=== PATIENT | male | born 1960 | race Caucasian/White ===

== ENCOUNTER → 2024-04-06 13:26 | Outpatient (REF) | payer BC, SELFPAY | LOC: HWRAD 13:26 | PROVIDERS: ATTENDING PHYSICIAN Internal Medicine | DX: B34.9 Viral infection, unspecified (principal) | CPT/HCPCS: 71046 ==

== ENCOUNTER 2024-06-22 06:58 | Day surgery (SDC) | payer BC, SELFPAY ==
[2024-06-22 07:31] VITALS: BMI 44.2
[2024-06-22 07:32] VITALS: BP 109/78; BMI 44.2
[2024-06-22 09:09] VITALS: BP 110/50
[2024-06-22 09:24] VITALS: BP 116/55
[2024-06-22 09:36] VITALS: BP 116/52
== END 2024-06-22 09:46 | disposition home or self-care (01) ==
LOC: GI 06:58
PROVIDERS: ATTENDING PHYSICIAN Internal Medicine Gastroenterology
DX: K62.5 Hemorrhage of anus and rectum (principal); C20 Malignant neoplasm of rectum; R19.7 Diarrhea, unspecified; K56.690 Other partial intestinal obstruction; D49.0 Neoplasm of unspecified behavior of digestive system; K57.30 Diverticulosis of large intestine without perforation or abscess without bleeding; D12.4 Benign neoplasm of descending colon
CPT/HCPCS: 45385; 45380; 45381; 88305; 88342

== ENCOUNTER → 2024-07-06 12:07 | Outpatient (REF) | payer BC, SELFPAY | LOC: RAD 12:07 | PROVIDERS: ATTENDING PHYSICIAN Internal Medicine Gastroenterology; FAMILY PHYSICIAN Internal Medicine; REFERRING PHYSICIAN Surgery | DX: K63.89 Other specified diseases of intestine (principal) | CPT/HCPCS: 71260; 74177; Q9967 ==

== ENCOUNTER → 2024-07-18 12:25 | Outpatient (REF) | payer BC, SELFPAY | LOC: MRI 3T 12:25 | PROVIDERS: ATTENDING PHYSICIAN Surgery; FAMILY PHYSICIAN Internal Medicine | DX: C20 Malignant neoplasm of rectum (principal) | CPT/HCPCS: 72197 ==

== ENCOUNTER → 2024-07-26 08:02 | Outpatient (REF) | payer BC, SELFPAY | LOC: RAD 08:02 | PROVIDERS: ATTENDING PHYSICIAN Internal Medicine Critical Care Medicine; FAMILY PHYSICIAN Internal Medicine | DX: R06.02 Shortness of breath (principal) | CPT/HCPCS: 93970 ==

== ENCOUNTER → 2024-07-30 09:00 | Outpatient (REF) | payer BC, SELFPAY ==
[2024-07-30 11:01] LABS: INR 1.37; PT 17.1 Sec (11.4-14.6)
[2024-07-30 11:02] LABS: APTT 40.7 Sec (23.4-35.0)
== END ==
LOC: REG 09:00
PROVIDERS: ATTENDING PHYSICIAN Internal Medicine Critical Care Medicine; FAMILY PHYSICIAN Internal Medicine
DX: R91.1 Solitary pulmonary nodule (principal)
CPT/HCPCS: 36415; 85610; 85730

== ENCOUNTER 2024-07-30 20:26 | Inpatient (IN) | payer BC, SELFPAY ==
[2024-07-30] VITALS (11 sets, daily range): BP systolic 83–107; BP diastolic 41–62; PULSE 118–128; BMI 41.2; BMI 40.1
[2024-07-30] MEDS: NSS 1000 IV ×2 (16:24→21:52)
[2024-07-30 16:35] LABS: % Basophils 0.3 % (0-2); % Eosinophils 0.1 % (0-6); % Immature Granulocytes 0.5 % (0-0.5); % Lymphocytes 16.9 % (20.5-51.1); % Monocytes 5.3 % (1.7-9.3); % Neutrophils 76.9 % (42.2-75.2); Absolute Immature Granulocytes 0.1 10^3/uL (0-0.05); Absolute Lymphocytes 1.7 10^3/uL (1.2-3.4); Absolute Monocytes 0.5 10^3/uL (0.1-0.6); Absolute Neutrophils 7.8 10^3/uL (1.4-6.5); Hematocrit 28.6 % (39.0-52.0); Mean Corp Hgb Conc. 31.5 g/dL (33.0-37.0); Mean Corpuscular Hgb 26.5 pg (27.0-31.0); Mean Corpuscular Volume 84.4 fL (80.0-94.0); Mean Platelet Volume 9.5 fL (7.4-10.4); Nucleated Red Blood Cells % 0 % (-); Platelet Count 159 10^3/uL (130-400); Red Blood Cell Count 3.39 10^6/uL (4.70-6.10); Red Cell Dist. Width 15.3 % (11.5-14.5); White Blood Cell Count 10.1 10^3/uL (4.8-10.8)
[2024-07-30 16:51] LABS: ALT (SGPT) 115 U/L (0-50); AST (SGOT) 98 U/L (17-59); Albumin 2.7 g/dl (3.5-5.0); Alkaline Phosphatase 238 U/L (38-126); Blood Urea Nitrogen 60 mg/dl (9-20); Calcium 7.7 mg/dl (8.4-10.2); Carbon Dioxide 20 mmol/L (22-30); Chloride 103 mmol/L (98-107); Estimated Creatinine Clearance 75 ml/min; Glucose 123 mg/dl (70-99); Potassium 4.2 mmol/L (3.5-5.1); Sodium 132 mmol/L (135-145); Total Bilirubin 0.8 mg/dl (0.2-1.3); Total Protein 5.7 g/dl (6.3-8.2); eGFR 56.83
--- NOTE | 2024-07-30 18:14 | ED.GENMED ---
History of Present Illness
General
Chief Complaint: Dizziness
Source: patient
Exam Limitations: none
Time Seen by Provider: 07/30/24 16:06
History of Present Illness
History of Present Illness:
64-year-old male with recent diagnosis of colorectal cancer due for a biopsy of a lesion in his lung as well presents with complaints of fatigue and lightheadedness. He started metoprolol in addition to his olmesartan that he was taking. He states
since then he has not felt well. He also started Eliquis due to suspicion for possible atrial fibrillation. His first dose of 5 mg of Eliquis was last evening he only had 1 dose. He denies any black stools. He denies abdominal pain chest pain or
shortness of breath. The metoprolol dose was 25 mg once a day.
Phy Exam
Physical Exam
Physical Exam:
General: Well-appearing male no acute respiratory distress
HEENT: Normocephalic atraumatic
Heart: Tachycardic
Lungs: Clear no wheeze
Abdomen is soft nontender nondistended
Extremities: No cyanosis or edema
Rectal exam: No obvious hemorrhoids. Yellow-colored stool but this is heme positive
Course
Orders/Labs/Results
Orders:
Orders
07/30/24 16:07
EKG [Electrocardiogram (*1)] Urgent
Reason for Study: Tachycardia
EKG- Treatment ONCE
07/30/24 16:18
0.9% Sodium Chloride 1000 ml [Nss] 1,000 ml IV BOLUS
07/30/24 16:22
Complete Blood Count/With Diff Urgent
Comprehensive Metabolic Panel Urgent
Abnormal Lab Results
07/30/24
16:22
RBC 3.39 L 10^6/uL
(4.70-6.10)
Hgb 9.0 L g/dL
(13.0-18.0)
Hct 28.6 L %
(39.0-52.0)
MCH 26.5 L pg
(27.0-31.0)
MCHC 31.5 L g/dL
(33.0-37.0)
RDW 15.3 H %
(11.5-14.5)
Abs Immat Gran (auto) 0.1 H 10^3/uL
(0-0.05)
Absolute Neuts (auto) 7.8 H 10^3/uL
(1.4-6.5)
Neutrophils % 76.9 H %
(42.2-75.2)
Lymphocytes % 16.9 L %
(20.5-51.1)
Sodium 132 L mmol/L
(135-145)
Carbon Dioxide 20 L mmol/L
(22-30)
BUN 60 H mg/dl
(9-20)
Creatinine 1.4 H mg/dL
(0.7-1.3)
Glucose 123 H mg/dl
(70-99)
Calcium 7.7 L mg/dl
(8.4-10.2)
AST 98 H U/L
(17-59)
ALT 115 H U/L
(0-50)
Alkaline Phosphatase 238 H U/L
(38-126)
Total Protein 5.7 L g/dl
(6.3-8.2)
Albumin 2.7 L g/dl
(3.5-5.0)
07/30/24 16:22
07/30/24 16:22
Vital Signs
Initial and Last Documented VS:
Initial Vital Signs
Pulse Resp BP Pulse Ox
108 16 83/41 100
07/30/24 15:56 07/30/24 15:56 07/30/24 15:56 07/30/24 15:56
Last Documented Vital Signs
Temp Pulse Resp BP Pulse Ox
97.6 F 94 22 97/51 93
07/30/24 17:36 07/30/24 19:15 07/30/24 19:15 07/30/24 19:00 07/30/24 19:15
MDM/Problems Addressed
Differential Diagnosis Includes:
Patient with fatigue. Differential could include anemia versus medication reaction. Patient is hypotensive here with pressures 80s over 40s. Fluids ordered.
Hemoglobin is 9.0. I have no priors to compare. Patient is trying to find other lab results on his phone.
*Critical Care Note
Total Time (30-74mins, 75-104mins- exclusive of procedures): Not Applicable
Update Note
Update Note:
Most recent lab result on patient's phone was 12.7 hemoglobin from May. It dropped almost 4 g since then. I suspect patient's symptoms are related to his anemia. Last dose of metoprolol was about 24 hours ago. Consent obtained for blood
transfusion. Will admit to hospital
ED Attending Note
-
Portions of this chart may have been created with voice recognition software.� Occasional wrong word or��sound alike� substitutions may have occurred due to the inherent limitations of voice recognition software.
Discharge Plan
Departure
Patient Disposition: Admit
Date of Disposition: 07/30/24
Time of Disposition: 19:32
Presentation/result/management discussed w/ accepting MD/DO: Hospitalist
Discharge Problem:
Anemia
Prescriptions:
No Action
esomeprazole magnesium [Nexium] 40 mg Capsule,Delayed Release(Dr/Ec)
40 mg PO DAILY
olmesartan-hydrochlorothiazide 40-12.5 mg Tablet
1 tab PO DAILY
rosuvastatin 10 mg Tablet
10 mg PO DAILY
Enbrel 50 mg/mL (1 mL) Syringe
50 mg SC QWEEK
Referrals:
Dk العلي MD [Family Provider] -
Interventions
Interventions:
*Risk Screen - Suicide Last Done: 07/30/24 15:56
*General Assessment Last Done: 07/30/24 15:56
*Neglect/Abuse Screening Last Done: 07/30/24 16:14
ED- Fall Risk Assessment Last Done: 07/30/24 16:25
*ED COVID-19 Vaccine History Last Done: 07/30/24 15:56
ED- Neurological Assessment Last Done: 07/30/24 16:21
ED- Cardiac Assessment Last Done: 07/30/24 16:24
Discharge Date and Time
Print Language: LITHUANIAN
--- NOTE | 2024-07-30 19:54 | HPS.HSE ---
Family Physician
-
Family Physician: Dk العلي
Chief Complaint
-
Dizziness
History of Present Illness
Patient is a 64-year-old male past medical history of recently diagnosed colorectal cancer, persistent atrial fibrillation, and hypertension who presents with dizziness. Patient reports feeling unwell for the last 1 to 2 days. He was recently
started on metoprolol and Eliquis for atrial fibrillation. He denies chest pain, palpitations, or shortness of breath.
Medical History
Past Medical History
Past Medical History: Reports Other
Additional Past Medical History:
Colorectal Adenocarcinoma
Persistent Atrial Fibrillation
Essential Hypertension
Hyperlipidemia
Restrictive Lung Disease
Obstructive Sleep Apnea
Psoriasis
Past Surgical History: Reports Other
Additional Past Surgical History:
Right Knee and Ankle Surgeries
Social History
Tobacco: Non-smoker
Alcohol: None
Family History
Family History: Not pertinent
Allergies / Home Medications
Allergies reflects when Allergies were last updated in [facility].
Home Medications with original date entered in [facility]
Allergy/Medication List:
Allergies
Allergy/AdvReac Type Severity Reaction Status Date / Time
No Known Allergies Allergy Verified 07/30/24 16:02
Home Medications
olmesartan 40 mg-hydrochlorothiazide 12.5 mg tablet 1 tab PO HS 06/22/24
rosuvastatin 10 mg tablet 10 mg PO HS 06/22/24
apixaban 5 mg tablet (Eliquis) 5 mg PO BID 07/30/24
lorazepam 1 mg tablet 1 mg PO HSPRN PRN sleep 07/30/24
metoprolol succinate 25 mg tablet,extended release 24 hr 25 mg PO HS 07/30/24
Review of Systems
-
A 12 point ROS was completed and negative except as noted: Yes
Constitutional: Denies Fever or Chills
Respiratory: Denies Cough or Trouble Breathing
Cardiac: Denies Chest Pain or Palpitations
Physical Exam
Vital Signs
Vital Signs
Temp Pulse Resp BP Pulse Ox
97.6 F 94 22 97/51 93
07/30/24 17:36 07/30/24 19:15 07/30/24 19:15 07/30/24 19:00 07/30/24 19:15
Physical Exam
General: Comfortable and Conversant
HEENT: Moist mucous membranes and Atraumatic
Respiratory: Clear and Non Labored Respirations
Cardiac: S1/S2 and Irregular Rhythm; No Tachycardia
GI: Soft and Non Tender
Rectal: Deferred by Provider
Musculoskeletal: No Clubbing, No Cyanosis and Other (+1 pitting edema bilateral lower extremities)
Skin: Warm and Dry
Neuro: Awake, Alert, Oriented and Nonfocal/grossly intact
Psych: Calm
Laboratory Results
-
07/30/24 16:22
07/30/24 16:22
Laboratory Results
Total Bilirubin 0.8 mg/dl (0.2-1.3) 07/30/24 16:22
AST 98 U/L (17-59) H 07/30/24 16:22
ALT 115 U/L (0-50) H 07/30/24 16:22
Alkaline Phosphatase 238 U/L (38-126) H 07/30/24 16:22
Data Reviewed
-
Lab Data: Labs Reviewed by me
Impression/Plan
-
Acute Kidney Injury
-Hold olmesartan and HCTZ
-Continue IVFs
-Recheck labs in AM
Worsening Normocytic Anemia
-No evidence of active bleeding
-Check iron studies
Elevated LFTs
-Outpatient notes indicate prior history of Elevated LFTs
-Continue to trend
Colorectal Adenocarcinoma with possible lung mets
-Recently started chemotherapy and radiation
-Schedule for lung biopsy as outpatient
Persistent Atrial Fibrillation
-Continue Eliquis for anticoagulation
-Continue Metoprolol for rate control if blood pressure improves
Essential Hypertension
-BP running low - Hold all oral meds
Hyperlipidemia
-Continue rosuvastatin
DVT proph: Eliquis
Code Status: Full Code
[2024-07-30 20:40] LABS: Iron 32 ug/dl (49-181)
[2024-07-30 20:50] LABS: Percent Saturation 11 % (20-50); Total Iron Binding Capacity 270 ug/dl (261-462)
--- NOTE | 2024-07-30 21:08 | W.PN.UPDATE ---
Update Note
Progress Note Update
Attending addendum
Patient seen independently
64-year-old man with a past medical history of:
recently diagnosed colorectal cancer,
persistent atrial fibrillation,
essential hypertension
presented with dizziness. Patient reports feeling unwell for the last 2 days. He was recently started on metoprolol and Eliquis for atrial fibrillation. He denied chest pain, palpitations, or shortness of breath. In the ED he was found to have a
sodium of 132, and a creatinine of 1.4, and H/H of 04/07.6.
Past Medical History
Colorectal Adenocarcinoma
Persistent Atrial Fibrillation
Essential Hypertension
Hyperlipidemia
Restrictive Lung Disease
Obstructive Sleep Apnea
Psoriasis
Right Knee and Ankle Surgeries
Physical Exam
General: Comfortable and Conversant
HEENT: Moist mucous membranes and Atraumatic
Respiratory: Clear and Non Labored Respirations
Cardiac: S1/S2 and Irregular Rhythm; No Tachycardia
GI: Soft and Non Tender
Psych: Calm
Impression/Plan
1. Acute Kidney Injury
-Hold olmesartan and HCTZ
-IVF
-labs in AM
2. Worsening Normocytic Anemia
-No obvious active bleeding
-iron studies
Please see PA note for full details on
Elevated LFTs
Colorectal Adenocarcinoma with possible lung mets
Persistent Atrial Fibrillation
Essential Hypertension
Hyperlipidemia
DVT proph: Eliquis
Code Status: Full Code
[2024-07-30 21:48] LABS: Folate 3.4 ng/ml (2.76-20); Vitamin B12 601 pg/ml (239-931)
[2024-07-30] MEDS: CRESTOR 10 MG PO (21:52)
[2024-07-31] VITALS (76 sets, daily range): BP systolic 65–170; BP diastolic 20–99; BMI 40.2
[2024-07-31] MEDS: NSS 1000 IV (05:13)
[2024-07-31] MEDS: LOPRESSOR 2.5 MG IV (06:01)
[2024-07-31 06:30] LABS: Glucose - Point of Care 174 mg/dl (70-99)
[2024-07-31] MEDS: LASIX 80 MG IV (06:56)
[2024-07-31 07:08] LABS: B.E. -11.5 mmol/L; O2 Saturation % 95.8 % (94-98); PCO2 35 mmHg (35-48); PO2 84 mmHg (83-108); pH 7.24 (7.35-7.45)
--- NOTE | 2024-07-31 07:21 | PTCARENOTE ---
Pt. received from ED and admission completed. Pt BPs running slightly low. Prior to change of shift pt. began experiencing increased WOB, HTN, and HR sustaining in the 130s-140s. Provider notified. Provider at bedside. Rapid response called and pt.
transferred to IMU. See rapid response notes. Pt. belongings sent to IMU.
--- NOTE | 2024-07-31 07:25 | W.PN.ANESINT ---
Anesthesia Intubation Note
- Intubation Note
Intubation Note:
Diagnosis: Respiratory distress
Blade: Glidescope
Tube Size: 8.0
Depth: 24 cm@lip
Side Taped: right
Drugs Used: propofol-100mg. Succs-100mg
Grade View: 1
EtCO2 Present: yes
Atraumatic: yes
Attempts: 1
Insertion Start and Stop Time: 07:20-07:23
SaO2 Pre: 78
SaO2 Post: 95
Glidescope Used: yes
Other Airway Adjustments: no
Pre-Oxygenated: yes
Portable Chest X-Ray: yes
RSI: yes
Suctioned: no
Bilateral Breath Sounds Confirmed: yes
Vent Settings:
Settings per ___Attending Physician
[2024-07-31] MEDS: SODIUM BICARBONATE 50 MEQ IV (07:36)
[2024-07-31] MEDS: SUBLIMAZE 50 MCG IV (07:37)
[2024-07-31] MEDS: VERSED 5 MG IV (07:45)
--- NOTE | 2024-07-31 07:53 | W.PN.UPDATE ---
Update Note
Progress Note Update
RN called this provider for patient w/increased work of breathing and increasing O2 needs. On evaluation, patient respirations 30-40's, pulsox 85% on room air, placed on non-rebreather up to 92%, HR 130-160's, hypertensive BP 170/80's, axillary temp
101.3, Accucheck 174, patient was becoming mottled (b/l lower extremities and trunk) rapid response was called. Labs ordered, results pending. Patient placed on Bipap, sat not improved. Stat portable CXR done. Dr. Oviedo notified and evaluated
patient. Patient transferred to ICU. Attempted v-60 with no success. Decision made to intubate patient. Patient in agreement. Multiple attempts to notify were unsuccessful, left message to call ICU extension. HUMAN RESOURCES PROJECT COORDINATOR, Jenifer, notified that
was not able to be reached. Dr. Silva, covering attending notified of rapid response and need to transfer to ICU. Started on IV antibiotics. See MAR for medication administration.
[2024-07-31] MEDS: LEVOPHED 250 IV ×4 (08:00→19:30)
--- NOTE | 2024-07-31 08:00 | PTCARENOTE ---
Pt. arrived to ICU rm s/p Rapid response @ approx 0650 on BiPAP 15/7 15LPM. Overnight MD and PLASTIC TECHNICIAN @ bedside s/p RR. Upon ICU arrival, admin IV Lasix 80mg x 1 dose- see MAR and bourgeois catheter inserted per orders. 225mL of yellow urine drained post
catheter insertion. Work of breathing not improved on BiPAP; NIV applied by RT per orders @ 0700. Pt. decompensating, unable to obtain accurate pox; reading questionable 50's on monitor, tachypneic w RR up to 40's, mottled LE and hands.
Anesthesia called to bedside and pt. intubated @ 0715 w #8.0 ett, 25 lip on R side- see anesthesia report. S/P intubation, generalized skin color improved and SpO2 obtained- 100% on initial vent settings AC16/500/.100/+8. Prop/fent/levo gtts
initiated/titrated per orders infusing via L midline (inserted by VAT s/p RR)- see flow sheet. OG tube inserted to 60cm. ETT and OG tube verified w x-ray. Complete hygiene provided. Safe environment provided.
[2024-07-31] MEDS: OFIRMEV 100 IV (08:07)
[2024-07-31] MEDS: SUBLIMAZE 100 MCG IV (08:09)
[2024-07-31 08:25] LABS: ALT (SGPT) 95 U/L (0-50); AST (SGOT) 77 U/L (17-59); Alkaline Phosphatase 264 U/L (38-126); Blood Urea Nitrogen 47 mg/dl (9-20); Calcium 7.6 mg/dl (8.4-10.2); Carbon Dioxide 15 mmol/L (22-30); Chloride 106 mmol/L (98-107); Direct Bilirubin 0.6 mg/dl (0.0-0.4); Estimated Creatinine Clearance 88 ml/min; Glucose 206 mg/dl (70-99); Potassium 5.4 mmol/L (3.5-5.1); Sodium 137 mmol/L (135-145); Total Bilirubin 1.1 mg/dl (0.2-1.3); Total Protein 6.2 g/dl (6.3-8.2); eGFR > 60.00
[2024-07-31 08:27] LABS: Triglycerides 221 mg/dl (10-149)
--- NOTE | 2024-07-31 08:28 | CON.INTV ---
Consultation
Consultation Request
Date/Time Consultation Requested: 07/31/2024
Date/Time Consultation Performed: 07/31/2024 - 24
Requesting Provider: Dr. Coburn
Performing Provider: Dr. Ball
Reason for Consultation: SOB/Intubated
Medical History
-
Chief Complaint: Dizziness and lethargy
History of Present Illness:
64-year-old M with PMHx of colorectal cancer, HAN on CPAP, A fib on Eliquis and pulmonary nodule in RUL who p/w dizziness and lethargy x 1-2 days. Hypotensive in triage to 80s/40s, with heart rate 108, and saturating 100% on room air. Initial
temperature 97.6 �F. Initial labs showed Hb 9, sodium 132, creatinine 1.4, lactate 4, AST 98, ALT 115, ALP 230, and COVID-19 antigen negative. Patient given 1 L NS 0.9% in the ER and was admitted to telemetry with CHRISS. Earlier this morning, he
was increasingly tachypneic, hypoxic on room air to the mid 80s, placed onto nonrebreather with saturations improving to 92%, tachycardic with A-fib with RVR and hypertensive with a fever. Lower extremities and trunk became mottled and rapid
response called. Placed onto BiPAP with no improvement in saturations. Stat CXR done showing evidence of pulmonary edema. He was transferred to the ICU and attempted NIV with no success, and he was intubated emergently. Sap Director service is
now consulted for additional management/recommendations.
Of note, patient saw us in the office on 07/25/[address] Olguin. He has a right upper lobe 2 cm nodule seen on CT chest/abdomen/pelvis from 07/06/2024. Follow-up PET/CT on 07/19/2024 showed FDG avid 2.2 cm RUL solid pulmonary nodule with SUV max
of 9.6 (delayed: 10.6). No suspicious FDG avid lesions elsewhere in the chest. Also there was an FDG avid mass in his upper rectum with SUV of 25.6 with additional FDG avidity in the mid rectum as well as in the anus.
Pt seen this AM, remains intubated on AC/CMV at: 16/500/100%/8 with PIP: 23, VTe 424mL and breathing at 17 breaths/minute. Heart rate 95, BP 140, saturating 100%. Patient's , Adriana, at bedside and answered all of her questions. According to
her, he has had a cough for several months, especially after he had COVID-19 in March 2024. He has been having fevers at night with no recent sick contacts and she denies him having any recent phlegm production.
PMHx: HAN on auto CPAP, colorectal cancer, pulmonary nodule, A-fib on Eliquis, chronic cough, history of psoriasis with psoriatic arthritis previously on Enbrel, history of COVID-19 (March 2024), history of hepatitis A, restrictive lung disease,
external hemorrhoids, dyslipidemia, obesity, hypertension
PSHx: Wrist surgery, right ankle ligament surgery, lip surgery, colonoscopy
Past Medical History
Past Medical History: Other (Above as per HPI)
Past Surgical History: Other (Above as per HPI)
Social History
Tobacco: Non-smoker
Alcohol: None
Drug: None
Personal:
Living: With Family
Family History
Family History: CAD (Father) and Diabetes (Mother + paternal grandfather)
Allergies / Home Medications
Allergies
Allergy/AdvReac Type Severity Reaction Status Date / Time
No Known Allergies Allergy Verified 07/30/24 16:02
Home Medications
�Medication �Instructions �Recorded �Confirmed �Last Taken �Type
olmesartan 40 1 tab PO HS Blood Pressure 06/22/24 07/30/24 07/29/24 History
mg-hydrochlorothiazide 12.5 mg
tablet
rosuvastatin 10 mg tablet 10 mg PO HS High Cholesterol 06/22/24 07/30/24 07/29/24 History
apixaban 5 mg tablet (Eliquis) 5 mg PO BID Blood Clot 07/30/24 07/30/24 Unknown History
Prevention/Tx
lorazepam 1 mg tablet 1 mg PO HSPRN PRN sleep 07/30/24 07/30/24 07/29/24 History
metoprolol succinate 25 mg 25 mg PO HS Blood Pressure 07/30/24 07/30/24 07/29/24 History
tablet,extended release 24 hr
Review of Systems
-
Unable to Obtain full review of systems at this time due to: Patient Intubation
Vitals / Labs / Diagnostic Testing
Vital Signs
Temp Pulse Resp BP Pulse Ox
97.7 F 132 16 160/94 95
07/31/24 03:26 07/31/24 06:56 07/31/24 03:26 07/31/24 06:56 07/31/24 07:29
Lab Data
07/31/24 07:54
07/31/24 07:54
Laboratory Results
07/31/24 07/31/24
06:41 08:16
pH 7.24 L 7.28 L
pCO2 35 38
pO2 84 158 H
HCO3 15.0 L* 17.9 L
O2 Delivery Level
Microbiology
07/31/24 08:10 Nasal Swab Influenza Types A & B (KHANG) - Final
Negative for Influenza A & B, NAAT
Negative results must be combined with clinical observations
and patient history.
Nucleic Acid Amplification test (NAAT)performed on the
[employer] platform.
Diagnostic Testing:
Physical Exam
-
HEENT: Normocephalic and Anicteric
Cardiovascular: S1/S2 and Peripheral Edema (trace LE edema bilaterally)
Respiratory: Wheeze (negative), Rales (negative), Rhonchi (negative), Non-Labored Respirations and Other (Mechanical breath sounds heard bilateral)
GI: Soft, Distended (Abdominal obesity), Non Tender and Normal Bowel Sounds
Neurology: Tremors (negative) and Other (Sedated)
Skin: Warm and Dry
General: Respiratory Distress (negative), Comfortable, Fever (negative) and Chills (negative)
Assessment
-
Assessment: 64-year-old M with PMHx of colorectal cancer, HAN on CPAP, A fib on Eliquis and pulmonary nodule in RUL who p/w dizziness and lethargy x 1-2 days. Hypotensive in triage to 80s/40s, with heart rate 108, and saturating 100% on room air.
Initial temperature 97.6 �F. Initial labs showed Hb 9, sodium 132, creatinine 1.4, lactate 4, AST 98, ALT 115, ALP 230, and COVID-19 antigen negative. Patient given 1 L NS 0.9% in the ER and was admitted to telemetry with CHRISS. Earlier this
morning, he was increasingly tachypneic, hypoxic on room air to the mid 80s, placed onto nonrebreather with saturations improving to 92%, tachycardic with A-fib with RVR and hypertensive with a fever. Lower extremities and trunk became mottled and
rapid response called. Placed onto BiPAP with no improvement in saturations. Stat CXR done showing evidence of pulmonary edema. He was transferred to the ICU and attempted NIV with no success, and he was intubated emergently. Sap Director service
is now consulted for additional management/recommendations.
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
restrictive lung disease, external hemorrhoids, dyslipidemia, obesity, hypertension
Impression:
#Acute cardiogenic pulmonary edema
#Acute HFpEF exacerbation
#Shock state, likely due to sedation and sepsis
#CHRISS
#Fever with suspected pneumonia with sepsis
#Leukocytosis
#Anemia
#Metabolic acidosis with preserved anion gap with respiratory acidosis (under compensation)
#Lactic acidosis
#Transaminitis with hyperbilirubinemia
#Elevated troponin likely due to demand ischemia with type II TX from shock state
#Acute respiratory failure due to above now on mechanical ventilation as of 07/31/2024
#A-fib with RVR
#Metastatic colorectal cancer with suspected lung metastasis (diagnosed via colonoscopy on 06/22/2024 with partially obstructing tumor seen in the rectum 4 cm from the anal verge, invasive low-grade colorectal adenocarcinoma)
#PET avid 2.2 cm right upper lobe nodule originally planned for robotic bronchoscopy on 08/03/2024 (will be deferred for now)
#HAN on auto CPAP
#History of psoriasis previously on Enbrel
#History of hepatitis A
#History of COVID-19 (04/03)
#Restrictive lung disease (suspected based on spirometry from 05/15/2021, however patient was coughing during testing and post-bronchodilator FVC was WNL at 84% predicted
Plan:
- Continue mechanical ventilation with daily SAT/SBT if clinically indicated
- prn nebulized bronchodilators - not currently bronchospastic
- Continue aspiration precautions
- Titrate FiO2 + PEEP to maintain SpO2 >90-94%
- Maintain plateau pressure <30
- Continue to aggressively diurese as tolerated
- Replete electrolytes with K>4, Mg>2 while being diuresed
- Check echo
- Cardiology consult recommended
- Continue broad spectrum ABx with cefepime and vancomycin; check MRSA swab and if negative then DC IV vanco; DC azithromax
- Check respiratory culture, and follow-up blood cultures x2 collected earlier this morning
- Continue vasopressors and maintain MAP>65, SBP>90
- Trend sHCO3 and if bicarb level <18 then consider bicarb gtt; trend pH and pCO2 with serial blood gases
- Trend lactate until <2 mmol/L
- Trend troponin level until peak
- Trend LFTs and T. bili
- Renally dose all meds/Abx
- Trend sCr, UOP and continue strict I/O
- Maintain euglycemia with goal BG 140-180 with q6hr ISS
- Trend H/H and transfuse if needed to keep Hb>7g/dL; keep plt>20k, unless there is concern for bleeding then keep plt>50k
- DVT ppx: Eliquis
Once patient is discharged (assuming that he survives this hospitalization, he will follow-up with us in the office again. He last saw us on 07/25/[address] Olguin.
Critical care statement: A total of 40 minutes of critical care time was provided for this patient today. This includes management of unstable vital signs, evaluation of the patient at bedside, reviewing the patient's pertinent medical records
including radiographs, microbiology, laboratory evaluations, and discussion with primary team, consultants, pharmacy, nutrition, physical therapy, case management, charge nurse, critical care nursing, and respiratory therapy.
Data:
CXR 07/31/2024: Prominent markings suggesting combination of interstitial and to a lesser extent alveolar acute pulmonary edema.
[2024-07-31 08:31] LABS: B.E. -8.2 mmol/L; HCO3 17.9 mmol/L (21-28); O2 Saturation % 99.8 % (94-98); PCO2 38 mmHg (35-48); PO2 158 mmHg (83-108); pH 7.28 (7.35-7.45)
[2024-07-31] MEDS: SUBLIMAZE 100 IV (08:33)
[2024-07-31 08:43] LABS: Hematocrit 33.1 % (39.0-52.0); Hemoglobin 10.4 g/dL (13.0-18.0); Mean Corp Hgb Conc. 31.4 g/dL (33.0-37.0); Mean Corpuscular Hgb 26.9 pg (27.0-31.0); Mean Corpuscular Volume 85.8 fL (80.0-94.0); Mean Platelet Volume 9.8 fL (7.4-10.4); Platelet Count 194 10^3/uL (130-400); Red Blood Cell Count 3.86 10^6/uL (4.70-6.10); Red Cell Dist. Width 15.5 % (11.5-14.5)
[2024-07-31 08:45] LABS: COVID-19 Antigen Negative (Negative)
--- NOTE | 2024-07-31 09:11 | W.PN.HOSP.TC ---
Addendum entered and electronically signed by Erin Silva MD 07/31/24 09:41:
able to update she reports he has been having fevers on and off since diagnosis of colorectal cancer
highest has been up to 101
has been told it's tumor fever
Original Note:
Today's Communication/Plan
-
see plan
Assessment / Plan
Assessment / Plan
Mr. Иван Redd is a 64-year-old man with a past medical history of recently diagnosed colorectal cancer, persistent atrial fibrillation, essential hypertension who presents to the ER with dizziness. Patient reports feeling unwell for the last
2 days. He was recently started on metoprolol and Eliquis for atrial fibrillation. Overnight admission patient developed flash pulmonary edema requiring transfer to the ICU, also with high fever.
CXR 07/31/24
IMPRESSION:
Prominent markings suggesting combination of interstitial and to a lesser extent alveolar acute pulmonary edema.
Flash Pulmonary Edema
Acute Heart Failure, unknown EF
Acute Respiratory Failure requiring intubation earlier this AM
Cardiogenic Shock; Hypotension post intubation
-s/p intubation earlier this AM
-s/p lasix 80mg IV X 1
-continue IV Diuresis
-trend Troponin and repeat EKG
-Operating Room Nurse Consult
-Cardiology consult
-TTE
-continue IV Levophed
Lactic Acidosis
-patient with fever and lactic acidosis but clearly wet on exam. therefore stopping fluids given respiratory failure - will trend lactate
Fever, unknown source
-Flu and covid negative
-blood cultures pending
-sputum culture
-continue Vanc/Cefepime and add on Azithromycin
-obtain RUQ US in setting elevated lvier enzymes
Worsening Normocytic Anemia
-No evidence of active bleeding
-Check iron studiesr
Colorectal Adenocarcinoma with possible lung mets
-Recently started chemotherapy and radiation
-Schedule for lung biopsy as outpatient
Persistent Atrial Fibrillation
-Continue Eliquis for anticoagulation
-Continue Metoprolol for rate control if blood pressure improves
Essential Hypertension
-BP running low - Hold all oral meds
Hyperlipidemia
-Continue rosuvastatin
DVT proph: Eliquis
Code Status: Full Code
Total Critical Care Time 50 minutes. I was immediately available to the patient and staff. I personally examined, reviewed labs, diagnostic images/reports, interpretations, treatment plans, discussed patient care with other providers and family
or caregivers (if patient is unable to make decisions), entered orders as appropriate and documented the medical record.
Anticipated Discharge: > 48 hours
Subjective/Interval History
-
Date of Service: July 31, 2024
sedated
Objective Data
-
Labs:
Laboratory Results
07/31/24 07/31/24 07/31/24
06:41 07:54 08:16
WBC 21.0 H
Hgb 10.4 L
Hct 33.1 L
Plt Count 194 D
HCO3 15.0 L* 17.9 L
Sodium 137
Potassium 5.4 H D
Chloride 106
Carbon Dioxide 15 L
BUN 47 H
Creatinine 1.2
Glucose 206 H
Calcium 7.6 L
Total Bilirubin 1.1
AST 77 H
ALT 95 H
Alkaline Phosphatase 264 H
Vital Signs:
Vital Signs
Temp Pulse Resp BP Pulse Ox
102.8 F H 132 16 160/94 95
07/31/24 07:35 07/31/24 06:56 07/31/24 03:26 07/31/24 06:56 07/31/24 07:29
Review of Systems
-
Unable to obtain full review of systems at this time due to: Patient Intubation
Physical Exam
-
General: Intubated and Other (diaphoretic )
HEENT: Atraumatic
Respiratory: Rales
Cardiac: Regular Rhythm and S1/S2
GI: Soft and Nontender
Musculoskeletal: Edema, Right Lower Extrem and Edema, Left Lower Extrem
Skin: Negative Dry or Rash
Neuro: Sedated
Psych: Calm
Data Reviewed
-
Diagnostic Radiology: Report Reviewed by me
Labs: Labs Reviewed by me
--- NOTE | 2024-07-31 09:51 | PHA.VAN.IN ---
Assessment
- Assessment
Renal Function: Unknown baseline (BUN & SCR decreased from admission)
Concomitant Antimicrobials: cefepime
Patient being initiated on vasopressor support
Plan
- Plan
Initial / Loading Dose: 2000mg - 07/31 09:54
Maintenance Regimen: dosing by level - give additional 1000mg x1 at 1800
Monitoring: random 08/01 0600
MRSA Screen: Ordered per protocol
Given BMI / weight, renal function may be overestimated
Will give additional dose tonight and follow level to assess clearance
Pharmacokinetics Vancomycin I
- -
Patient Age: 64
Patient Sex: Male
Vancomycin Day #: 1
Indication: Pulmonary/Respiratory
Requesting Provider: Dr. Ball
Pertinent Antimicrobial Allergies:
NKDA
Height / Weight:
Height 5 ft 11 in
Actual Weight 130.691 kg
Pertinent Past Medical History: BMI ~40, metastatic colorectal adenocarcinoma
- Vital Signs / Lab Results
Temp Pulse Resp BP Pulse Ox
102.8 F H 132 16 160/94 95
07/31/24 07:35 07/31/24 06:56 07/31/24 03:26 07/31/24 06:56 07/31/24 07:29
Lab Results - Hematology
07/30/24 07/31/24
16:22 07:54
WBC 10.1 21.0 H
Lab Results - Chemistry
07/30/24 07/31/24
16:22 07:54
BUN 60 H 47 H
Creatinine 1.4 H 1.2
Estimated Creat Clear 75 88
Albumin 2.7 L 3.0 L
07/31/24
07:54
Lactic Acid 4.0 H*
Microbiology Results
07/31/24 08:10 Influenza Types A & B (KHANG) - Final
Nasal Swab Negative for Influenza A & B, NAAT
Negative results must be combined with clinical observations
and patient history.
Nucleic Acid Amplification test (NAAT)performed on the
[employer] platform.
[2024-07-31] MEDS: VANCOCIN 540 MG IV (09:54)
--- NOTE | 2024-07-31 10:28 | CM ---
CM following re: discharge planning.
Discussed in Rounds, reviewed pt's chart, met with pt and pt's spouse at bedside.
Pt is a 64 year old male, admitted with primary dx of Flash Pulmonary Edema. Acute Heart Failure. Acute Respiratory Failure requiring intubation earlier this AM . Per Rounds meeting, pt remains intubated, continue supportive care.
Pt lives with spouse 2SH, 3 steps to enter, has 2 supportive children. 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
PCP: Dk العلي
Pharmacy: [facility]
D/C plan: uncertain at this time and will depend on pt's progress.
CM will follow with discharge plan updates as hospitalization progresses.
[2024-07-31] MEDS: PROTONIX IV 40 MG IV (11:27)
[2024-07-31] MEDS: NSS (PRESERVATIVE FREE) 10 ML IV (11:27)
[2024-07-31] MEDS: STERILE WATER FOR INJECTION 10 ML IV ×3 (11:27→20:48)
[2024-07-31] MEDS: MAXIPIME 1000 MG IV ×3 (11:27→20:48)
[2024-07-31] MEDS: PITRESSIN 100 IV ×2 (11:28→19:57)
--- NOTE | 2024-07-31 11:32 | CON.CAR ---
Addendum entered and electronically signed by Art Anderson MD 07/31/24 15:56:
I saw and examined the patient.
The Order Processing Clerk's note was reviewed and I agree with the note.
Comment: Briefly, 64-year-old man with recently diagnosed colorectal cancer with possible lung metastasis and recent diagnosis of atrial fibrillation who presented with lightheadedness and dizziness after starting oral metoprolol as an outpatient
and presented to [place] emergency department for further management. After being found to have CHRISS and anemia he was admitted for further management. Unfortunately developed increased work of breathing this morning, became tachycardic and was
found to be febrile. Did not clinically improve with BiPAP and he was subsequently intubated and transferred to the medical ICU for further management. Currently being treated with broad-spectrum antibiotics and requiring pressor support.
Cardiology is consulted for possible heart failure as a cause of his respiratory decompensation
proBNP was mildly elevated, it is possible there is some component of heart failure with preserved ejection fraction
Transthoracic echocardiogram performed earlier with normal biventricular function and no high-grade valve disease
Agree with trial of IV Lasix to see if this improves his respiratory status
Troponin was also found to be mildly elevated at 0.796
Patient was not reporting chest discomfort
ECG is not overtly ischemic
Recommend trending troponin to peak
Newly diagnosed A-fib
Was in sinus rhythm at the time of my evaluation earlier today
Hold metoprolol while requiring pressors
Maintained on Eliquis as an outpatient; okay to transition to IV heparin from my standpoint until he is clinically more stable
Original Note:
Consultation
Consultation Request
Date/Time Consultation Performed: 07/31/24
Requesting Provider: Dr. Sliva
Performing Provider: Felicia Persaud PA-C for Dr. Anderson
Reason for Consultation: flash pulm edema
Medical History
-
Chief Complaint: fatigue
History of Present Illness:
Patient is a 64-year-old male with past medical history of obesity, obstructive sleep apnea, hypertension, hyperlipidemia who was recently diagnosed with colorectal cancer on routine screening colonoscopy completed 06/22/2025. He then underwent CT
of chest/abdomen/pelvis which showed right upper lobe pulmonary nodule with concern for possible metastasis. He was scheduled for lung biopsy this 08/03/2024 prior to starting chemo or radiation. He was seen by his primary care physician
last week and was diagnosed with asymptomatic new atrial fibrillation. He was started on Toprol 25 mg nightly and referred to see his lab pack chemist. He saw us in the office on 07/26/2024 and was started on Eliquis. He was ordered outpatient echo.
Per , he has not been using his CPAP recently, so he did start using again after discussing this with PCP and lab pack chemist. He then presented to ER with fatigue and lightheadedness last evening. He reported not feeling well since starting
his Toprol. He was noted to have CHRISS with creatinine of 1.4 and was given IV fluid. With this overnight, patient reportedly developed increased work of breathing and drop in pulse ox. Fluid was stopped and patient was started on Levophed and
intubated. Flu/covid negative. He is now noted to have lactic acid up to 4 with fever and white count. Also with mild LFT elevation. Cardiology consulted for evaluation.
PMH:
Recent diagnosis paroxysmal atrial fibrillation
Colorectal cancer, suspected metastatic, diagnosed 06/22/2024, not yet started on therapy
Pulmonary nodule with concern for metastasis, scheduled for lung biopsy 08/03
Hypertension
Hyperlipidemia
Obstructive sleep apnea
Obesity
Past Medical History
Past Medical History: Other (in HPI)
Social History
Tobacco: Non-Smoker
Alcohol: Occasional
Personal:
Living: With Family
Employment: Employed
Family History
Family History: Reviewed & Not Pertinent
Allergies / Home Medications
Allergy/AdvReac Type Severity Reaction Status Date / Time
No Known Allergies Allergy Verified 07/30/24 16:02
�Medication �Instructions �Recorded �Confirmed �Type
olmesartan 40 1 tab PO HS Blood Pressure 06/22/24 07/30/24 History
mg-hydrochlorothiazide 12.5 mg
tablet
rosuvastatin 10 mg tablet 10 mg PO HS High Cholesterol 06/22/24 07/30/24 History
apixaban 5 mg tablet (Eliquis) 5 mg PO BID Blood Clot 07/30/24 07/30/24 History
Prevention/Tx
lorazepam 1 mg tablet 1 mg PO HSPRN PRN sleep 07/30/24 07/30/24 History
metoprolol succinate 25 mg 25 mg PO HS Blood Pressure 07/30/24 07/30/24 History
tablet,extended release 24 hr
Review of Systems
-
Unable to obtain full review of systems at this time due to: Patient Intubation
History Source: Family
All other systems: Negative unless noted
Physical Exam
Vital Signs
Temp Pulse Resp BP Pulse Ox
102.8 F H 95 17 98/49 98
07/31/24 07:35 07/31/24 11:00 07/31/24 11:00 07/31/24 11:00 07/31/24 11:00
Lab Results
07/31/24 07:54
Physical Exam
General: Intubated and Other (awake but sedated)
HEENT: Normocephalic, Anicteric and Moist Mucous Membranes
Cardiac: S1/S2, Regular Rhythm and Other (tachycardic)
GI: Soft, Non Tender and Non Distended
Musculoskeletal: No Clubbing, No Cyanosis and Edema (2+ of B/L LE)
Skin: Warm and Dry
Neuro: Sedated
Impression / Plan
-
Primary Lead Sustainability Specialist: Dr. Hiren Vicente
Assessment:
Presentation with fatigue, lightheadedness
CHRISS
Acute hypoxic respiratory failure requiring intubation 07/31/24
Hypotension requiring pressors
Fever
Sepsis, unclear source
Concern for flash pulm edema
Recent diagnosis paroxysmal atrial fibrillation
Colorectal cancer, suspected metastatic, diagnosed 06/22/2024, not yet started on therapy
Pulmonary nodule with concern for metastasis, scheduled for lung biopsy 08/03
Hypertension
Hyperlipidemia
Obstructive sleep apnea
Obesity
ECHO 07/31/24: pending
Plan:
-Patient with recent diagnosis colorectal cancer and afib presented with fatigue and lightheadedness. Admitted with CHRISS, given IVF, and then had decompensation overnight requiring initiation of levophed and intubation. concern for sepsis/acute
infectious process with elevated lactic acid, fever, leukocytosis. there is also concern for element of flash pulm edema with recent fluid administration resulting in cardiology consultation.
-critically ill
-check echo
-check proBNP. currently ordered IV lasix 40mg BID. Cr up to 1.7. CXR and chest CT with evidence of small effusion and possible acute pulm edema
-follow on tele. currently appears to be SR/ST however does have brief runs of afib vs atach.
-remains on levo, wean as able
-currently remains intubated but awakens to voice. extubate as able
-continue broad spectrum abx. blood cultures pending
-continue eliquis for now. follow hgb
-may get lung biopsy which was to be completed as OP 08/03, prior to DC as inpatient. onc awaiting results prior to solidifying chemo/rad regimen.
-d/w nursing
-d/w at bedside
Data Reviewed
-
EKG: Tracing Personally Visualized and interpreted
Radiology: Report Reviewed by me
CT Scan: Report Reviewed by me
Labs: Labs Reviewed by me
Old Records: Reviewed
[2024-07-31] MEDS: ELIQUIS 5 MG PO (11:34)
[2024-07-31 12:15] LABS: Urine Albumin Trace (Neg - Trace); Urine Bilirubin Negative (Negative); Urine Character Slightly Cloudy (Clear); Urine Color Yellow; Urine Glucose Negative (Negative); Urine Ketone Negative (Negative); Urine Leukocyte Negative (Negative); Urine Nitrite Negative (Negative); Urine Occult Blood Negative (Negative); Urine Specific Gravity 1.015 (<1.030); Urine Urobilinogen Negative (Neg - 1+)
--- NOTE | 2024-07-31 12:30 | PTCARENOTE ---
Critical lab work reported to Dr. Silva. Keegan cx completed; awaiting micro. ECHO completed @ bedside. to bedside, updated by MD and RN. Safe environment maintained.
[2024-07-31 12:36] LABS: Venous Blood Gas B.E. -8.2 mmol/L (-4 to +4); Venous Blood Gas HCO3 17.9 mmol/L (22-27); Venous Blood Gas O2 Sat % 99.7 %; Venous Blood Gas O2 Therapy 50%; Venous Blood Gas pCO2 38 mmHg (35-48); Venous Blood Gas pH 7.28 (7.32-7.43); Venous Blood Gas pO2 154 mmHg (30-50)
--- NOTE | 2024-07-31 12:36 | W.PN.INTV ---
Today's Communication / Plan
Recommendations
Continue to monitor blood pressure and wean off vasopressors as able
Replace bicarb
Continue to monitor H&H
Continue antibiotics, follow blood cultures, urine analysis, sputum culture
Assessment
-
Impression
Mr. Redd is a 64-year-old man, past medical history significant for recently diagnosed colorectal cancer in June,, persistent atrial fibrillation recently started on metoprolol and Eliquis, essential hypertension who presented to the
emergency department with a chief complaint of dizziness.
Possibly fast A-fib, triggered flash pulmonary edema, worsened work of breathing, nonresponsive to nonrebreather will mask and noninvasive ventilation, transferred to ICU, gave consent, intubated and sedated.
Patient has had fever on and off since being diagnosed with the colorectal cancer, initially it was low-grade but now it peaked to 101 degree. Based on chest x-ray it appears that lung is the source of infection.
Assessment
Acute pulmonary edema secondary to fast atrial fibrillation
Multifactorial shock-sepsis/cardiogenic
Acute respiratory failure requiring mechanical ventilation
Tumor fever
CHRISS
Metabolic acidosis
Plan
#Acute pulmonary edema secondary to fast atrial fibrillation
Patient has no past medical history of heart failure
Most likely persistent atrial fibrillation, triggered the acute pulmonary edema secondary to decreased heart filling and output
Received 80 mg Lasix that before being intubated
Currently on furosemide 40 mg twice daily
Troponin I 0.796 in the ER, keep trending
Consult cardiology
Echocardiography as able
#Multifactorial shock-sepsis/cardiogenic
Patient has elevated troponin, fluffy appearance of chest x-ray, persistent atrial fibrillation, suggesting heart failure and cardiogenic shock
Patient fulfill the criteria of sepsis with fever, increased lactic acid, hypotension and tachycardia in ER with chest x-ray evidence of infection-could be septic shock
Procalcitonin-16.7
Currently on vasopressors
Continue to monitor blood pressure
Follow blood cultures
Continue cefepime as an empiric antibiotic, discontinue azithromycin as no evidence of atypical organisms
#Acute respiratory failure requiring mechanical ventilation
Patient on mechanical ventilation due to acute respiratory failure
Vent settings include PEEP of 8, FiO2 50%, tidal volume 500 and respiratory rate of 16
Patient has metabolic acidosis, keep the respiratory rate hide to help went off the acid
Follow ABGs and CMP and replace bicarb as needed
#Tumor fever
Could be simply tumor fever
Procalcitonin-16.7, suggests an infectious etiology
#CHRISS
Olmesartan and hydrochlorothiazide on hold
IV fluids given
Continue to monitor RFT's
#Metabolic acidosis
Lactic acid initially 4, trending down, now 2.1
Acute metabolic acidosis secondary to shock with a bicarb of 17
Consider bicarb infusion
# Anemia
Patient has no active source of bleeding
Iron studies normal
Hemoglobin increased from 9-10
Continue to monitor H&H
# Other medical condition
Colorectal adenocarcinoma with possible lung mets-recently started chemo and radiation/consult heme-onc
Persistent atrial fibrillation-continue Eliquis for anticoagulation and metoprolol for rate control
Essential hypertension-continue meds as able
Hyperlipidemia-continue rosuvastatin
# GI prophylaxis-pantoprazole 40 mg twice daily
# DVT prophylaxis-Eliquis 5 mg twice daily
# CODE STATUS-full code
Subjective Dataa
Subjective Data
Date of Service:
Date of Service: July 31, 2024
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
Subjective:
Patient intubated, on vasopressors and sedated
Suspected flash pulmonary edema
Septic shock with lung as a source of infection
Review of Systems
General: Unobtainable - Sedation
Objective Data
Data Reviewed
Vital Signs / I&O / Oxygen:
Vital Signs
Temp Pulse Resp BP Pulse Ox
100.0 F 95 17 98/49 100
07/31/24 11:30 07/31/24 11:00 07/31/24 11:00 07/31/24 11:00 07/31/24 12:00
SaO2 100
Physical Exam
General: Other (Patient intubated, sedated and on vasopressors)
HEENT: Normocephalic and Anicteric
Cardiovascular: S1-S2, Regular Rhythm and Other (Tachycardia)
Respiratory: ET Tube and Other (Mechanical breath sounds bilaterally)
GI: Soft, Non Distended and Normal Bowel Sounds
Neurology: Awake, Oriented and No Motor Deficits
Labs/Micro/Reports
Lab Data
07/31/24 07:54
Laboratory Results
07/31/24 07/31/24
06:41 08:16
pH 7.24 L 7.28 L
pCO2 35 38
pO2 84 158 H
HCO3 15.0 L* 17.9 L
O2 Delivery Level
Microbiology
07/31/24 08:10 Nasal Swab Influenza Types A & B (KHANG) - Final
Negative for Influenza A & B, NAAT
Negative results must be combined with clinical observations
and patient history.
Nucleic Acid Amplification test (NAAT)performed on the
[employer] platform.
[2024-07-31 12:46] LABS: Lactic Acid 2.1 mmol/L (0.7-2.0)
[2024-07-31 12:51] LABS: ALT (SGPT) 188 U/L (0-50); AST (SGOT) 261 U/L (17-59); Albumin 2.6 g/dl (3.5-5.0); Alkaline Phosphatase 239 U/L (38-126); Blood Urea Nitrogen 49 mg/dl (9-20); Calcium 7.4 mg/dl (8.4-10.2); Carbon Dioxide 17 mmol/L (22-30); Chloride 107 mmol/L (98-107); Estimated Creatinine Clearance 62 ml/min; Glucose 179 mg/dl (70-99); Phosphorus 5.4 mg/dl (2.5-4.5); Potassium 5.2 mmol/L (3.5-5.1); Sodium 135 mmol/L (135-145); Total Bilirubin 1.4 mg/dl (0.2-1.3); Total Protein 5.5 g/dl (6.3-8.2); eGFR 45.02
[2024-07-31 12:59] LABS: NT-proBNP 3210 pg/ml
[2024-07-31 13:01] LABS: Troponin I 0.796 ng/ml
[2024-07-31] MEDS: DIPRIVAN 100 IV (13:13)
[2024-07-31 13:34] LABS: Procalcitonin 16.61 ng/ml (0.0-0.25)
[2024-07-31] MEDS: SODIUM BICARBONATE 1150 MEQ IV (16:35)
--- NOTE | 2024-07-31 16:43 | VATNOTE ---
07/31 RT DL picc placed by IV team. Redirected twice under sterile technique and continues to kink. primary rn aware and consult for IR repositioning to be made.
--- NOTE | 2024-07-31 17:30 | PTCARENOTE ---
Urine output dropping, zero over past few hours. Display Associate, Dr. Ball, aware.
[2024-07-31 18:06] LABS: Glucose - Point of Care 228 mg/dl (70-99)
[2024-07-31 18:07] LABS: Venous Blood Gas B.E. -10.7 mmol/L (-4 to +4); Venous Blood Gas HCO3 16.4 mmol/L (22-27); Venous Blood Gas O2 Sat % 89.2 %; Venous Blood Gas pCO2 40 mmHg (35-48); Venous Blood Gas pH 7.22 (7.32-7.43); Venous Blood Gas pO2 62 mmHg (30-50)
--- NOTE | 2024-07-31 18:08 | VATNOTE ---
07/31 third attempt requested per special skills officer- pulled back 3cm. re-xrayed
[2024-07-31] MEDS: VANCOCIN 200 IV (18:09)
[2024-07-31 18:15] LABS: Hemoglobin 10.1 g/dL (13.0-18.0); Mean Corp Hgb Conc. 31.6 g/dL (33.0-37.0); Mean Corpuscular Hgb 26.8 pg (27.0-31.0); Mean Corpuscular Volume 84.9 fL (80.0-94.0); Mean Platelet Volume 9.4 fL (7.4-10.4); Platelet Count 138 10^3/uL (130-400); Red Blood Cell Count 3.77 10^6/uL (4.70-6.10); Red Cell Dist. Width 15.6 % (11.5-14.5); White Blood Cell Count 25.4 10^3/uL (4.8-10.8)
[2024-07-31 18:21] LABS: APTT 43.9 Sec (23.4-35.0); Lactic Acid 3.8 mmol/L (0.7-2.0)
--- NOTE | 2024-07-31 18:30 | PTCARENOTE ---
Dr. Ball made aware of ongoing elevated pressor req; further orders received for PICC insertion. VAT team to bedside to completed; PICC required mx attempts of repositioning. Latest CXR obtained; awaiting read. Prop/fent/levo gtts remain
infusing via L midline. Bicarb gtt infusing via #20 R AC and IV vanco infusing via #20 R hand until PICC line placement confirmed. Pt.'s continuously updated on plan of care. Pt. drowsy, awakens to verbal stimuli; nods head 'no' to pain and
able to follow simple commands. Repositioned in bed per protocol. Next shift updated.
[2024-07-31 18:35] LABS: Troponin I 0.749 ng/ml
--- NOTE | 2024-07-31 20:00 | PTCARENOTE ---
Received pt via handoff. Pt intubated and sedated, arouses to verbal stimuli, able to follow commands and nod appropriately, afebrile. NSR with +1 generalized anasarca. Pedals present on palpation. #8 ETT 25@lip, AC 16/500/40%/8, coarse with
scattered rhonchi throughout. OG tube @60, hypoactive bowel sounds in all 4Q. Alvarez CDI with minimal urine output, urine zion and clear. Skin tear on right johansen, otherwise pale with cool skin. Gtts running see flowsheet. at bedside.
[2024-07-31 20:22] LABS: INR 1.59; PT 19.2 Sec (11.4-14.6)
[2024-07-31] MEDS: HEPARIN 25000 UNITS/250 ML IV (20:40)
[2024-07-31] MEDS: LASIX 40 MG IV (20:48)
[2024-07-31] MEDS: CRESTOR 10 MG PO (20:49)
[2024-07-31] MEDS: NOVOLOG FLEXPEN-MODERATE RESISTANCE 3 UNITS SC (21:43)
[2024-07-31 21:55] LABS: Glucose - Point of Care 224 mg/dl (70-99)
--- NOTE | 2024-07-31 22:51 | PTCARENOTE ---
Heparin gtt started, A Line placed.
--- NOTE | 2024-07-31 23:07 | W.PN.UPDATE ---
Update Note
Progress Note Update
Procedure Note: Arterial Line�
� Right Wrist Arrow 20 (09/11)�
Diagnosis:��Septic shock, CHRISS, Acute respiratory failure
IV Line Comments: Uneventful Procedure�
Chato's test completed pre-procedure: Yes�
A-Line Comments: Sterile technique as per standard protocol, Ultrasound guided insertion�
Functioning A-line in situ: Yes�
A-line Insertion Start Time:�5�
A-line in at:��2255
[2024-07-31 23:20] LABS: B.E. -11.5 mmol/L; Ionized Calcium 1.02 mMOL/L (1.15-1.33); PCO2 30 mmHg (35-48); PO2 161 mmHg (83-108); Potassium 5.8 mMOL/L (3.5-5.1); Sodium 130 mMOL/L (136-145); pH 7.28 (7.35-7.45)
[2024-07-31 23:22] LABS: HCO3 14.1 mmol/L (21-28)
[2024-08-01] VITALS (29 sets, daily range): BP systolic 77–163; BP diastolic 36–129; BMI 41.4
--- NOTE | 2024-08-01 | PTCARENOTE ---
All systems reassessed. A Line zeroed and correlates with cuff. remains at bedside.
[2024-08-01] MEDS: CALCIUM CHLORIDE 10% SYRINGE 60 MG IV (00:03)
[2024-08-01] MEDS: NOVOLOG FLEXPEN-MODERATE RESISTANCE SC ×5 (00:31→23:44)
[2024-08-01 00:42] LABS: Glucose - Point of Care 137 mg/dl (70-99)
[2024-08-01] MEDS: SUBLIMAZE 100 IV ×2 (00:58→23:59)
[2024-08-01] MEDS: LEVOPHED 258 MG IV ×4 (00:58→17:52)
[2024-08-01] MEDS: DIPRIVAN 100 IV (00:59)
[2024-08-01] MEDS: SODIUM BICARBONATE 1150 MEQ IV ×2 (03:33→16:18)
--- NOTE | 2024-08-01 04:02 | PTCARENOTE ---
All systems reassessed. Labs drawn and hygiene performed. at bedside.
[2024-08-01 04:05] LABS: B.E. -11.9 mmol/L; Ionized Calcium 1.09 mMOL/L (1.15-1.33); PCO2 30 mmHg (35-48); PO2 194 mmHg (83-108); Sodium 131 mMOL/L (136-145); pH 7.27 (7.35-7.45)
[2024-08-01] MEDS: MAXIPIME 1000 MG IV (04:10)
[2024-08-01] MEDS: STERILE WATER FOR INJECTION 10 ML IV (04:10)
[2024-08-01 04:11] LABS: % Basophils 0.3 % (0-2); % Lymphocytes 22.3 % (20.5-51.1); % Monocytes 7.3 % (1.7-9.3); % Neutrophils 69.1 % (42.2-75.2); Absolute Basophils 0.1 10^3/uL (0-0.2); Absolute Immature Granulocytes 0.2 10^3/uL (0-0.05); Absolute Lymphocytes 4.1 10^3/uL (1.2-3.4); Absolute Monocytes 1.3 10^3/uL (0.1-0.6); Absolute Neutrophils 12.6 10^3/uL (1.4-6.5); Hematocrit 32.4 % (39.0-52.0); Hemoglobin 10.3 g/dL (13.0-18.0); Mean Corp Hgb Conc. 31.8 g/dL (33.0-37.0); Mean Corpuscular Hgb 26.9 pg (27.0-31.0); Mean Corpuscular Volume 84.6 fL (80.0-94.0); Mean Platelet Volume 10.6 fL (7.4-10.4); Nucleated Red Blood Cells % 0 % (-); Platelet Count 107 10^3/uL (130-400); Red Blood Cell Count 3.83 10^6/uL (4.70-6.10); Red Cell Dist. Width 15.5 % (11.5-14.5); White Blood Cell Count 18.2 10^3/uL (4.8-10.8)
[2024-08-01 04:12] LABS: O2 Therapy 40%
[2024-08-01 04:13] LABS: HCO3 13.8 mmol/L (21-28); Potassium 6.5 mMOL/L (3.5-5.1)
[2024-08-01] MEDS: NOVOLIN R 10 UNITS IV (04:27)
[2024-08-01] MEDS: SODIUM BICARBONATE 50 MEQ IV (04:27)
[2024-08-01] MEDS: DEXTROSE 50% SYRINGE 25 GRAMS IV (04:27)
[2024-08-01 04:36] LABS: APTT 41.9 Sec (23.4-35.0)
[2024-08-01 04:43] LABS: Lactic Acid 5.9 mmol/L (0.7-2.0)
[2024-08-01 04:45] LABS: Albumin 2.6 g/dl (3.5-5.0); Alkaline Phosphatase 215 U/L (38-126); Blood Urea Nitrogen 55 mg/dl (9-20); Calcium 7.5 mg/dl (8.4-10.2); Carbon Dioxide 13 mmol/L (22-30); Chloride 105 mmol/L (98-107); Estimated Creatinine Clearance 42 ml/min; Glucose 98 mg/dl (70-99); Magnesium 2.3 mg/dl (1.6-2.3); Potassium 6.5 mmol/L (3.5-5.1); Sodium 134 mmol/L (135-145); Total Bilirubin 2.7 mg/dl (0.2-1.3); Total Protein 5.7 g/dl (6.3-8.2); Troponin I 0.536 ng/ml; Troponin I 0.544 ng/ml; eGFR 28.34
[2024-08-01] MEDS: CALCIUM GLUCONATE 100 IV ×4 (04:49→23:55)
[2024-08-01 04:51] LABS: Vancomycin Random 21.5 ug/ml
--- NOTE | 2024-08-01 05:02 | DOWNTIME ---
There was a [employer] Client Director Data Downtime on 08/01/2024 from 0100 to 08/01/2023 at 0205 . Downtime documentation of patient's care, including medication administrations, has been reconciled in the electronic record per guidelines. Refer to the
patient's paper chart under the miscellaneous tab to see printed paper medication records and downtime forms.
[2024-08-01 05:14] LABS: ALT (SGPT) 4001 U/L (0-50); AST (SGOT) > 7500 U/L (17-59)
--- NOTE | 2024-08-01 05:41 | W.PN.UPDATE ---
Addendum entered and electronically signed by RENUKA Lee 08/01/24 06:02:
Transition off propofol and started on Precedex due to increase LFts.
Original Note:
Update Note
Progress Note Update
Patient continues to deteriorate overnight worsening metabolic acidosis, hyperkalemia, CHRISS, and shocked liver. �Currently on levophed, vasopressin and sodium bicarbonate drip.�
[2024-08-01] MEDS: PITRESSIN 100 IV ×2 (05:42→16:19)
[2024-08-01 05:52] LABS: Glucose - Point of Care 129 mg/dl (70-99)
[2024-08-01] MEDS: PRECEDEX 100 IV ×8 (06:20→23:59)
[2024-08-01] MEDS: NSS (PRESERVATIVE FREE) 10 ML IV (07:46)
[2024-08-01] MEDS: PROTONIX IV 40 MG IV (07:46)
[2024-08-01 08:25] LABS: B.E. -10.8 mmol/L; O2 Saturation % 99.3 % (94-98); PCO2 25 mmHg (35-48); PO2 123 mmHg (83-108); pH 7.34 (7.35-7.45)
--- NOTE | 2024-08-01 08:30 | W.PN.INTV ---
Today's Communication / Plan
Recommendations
Starting CRRT today
Antibiotics per ID
Check 1 set of surveillance blood cultures today
Bicarb drip
Trend lactate
Mechanical ventilation
Titrate FiO2 + PEEP to keep SpO2 >90-94%
Guarded prognosis at this time
Full Code
Assessment
-
Assessment: 64-year-old M with PMHx of colorectal cancer, HAN on CPAP, A fib on Eliquis and pulmonary nodule in RUL who p/w dizziness and lethargy x 1-2 days. Hypotensive in triage to 80s/40s, with heart rate 108, and saturating 100% on room air.
Initial temperature 97.6 �F. Initial labs showed Hb 9, sodium 132, creatinine 1.4, lactate 4, AST 98, ALT 115, ALP 230, and COVID-19 antigen negative. Patient given 1 L NS 0.9% in the ER and was admitted to telemetry with CHRISS. Earlier this
morning, he was increasingly tachypneic, hypoxic on room air to the mid 80s, placed onto nonrebreather with saturations improving to 92%, tachycardic with A-fib with RVR and hypertensive with a fever. Lower extremities and trunk became mottled and
rapid response called. Placed onto BiPAP with no improvement in saturations. Stat CXR done showing evidence of pulmonary edema. He was transferred to the ICU and attempted NIV with no success, and he was intubated emergently. Triage Nurse service
is now consulted for additional management/recommendations.
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
restrictive lung disease, external hemorrhoids, dyslipidemia, obesity, hypertension
Impression:
#Acute respiratory failure due to above now on mechanical ventilation as of 07/31/2024
#Shock state, due to sedation and sepsis
#CHRISS now starting CRRT (08/01/2024)
#GPC bacteremia (via blood cultures on 07/31/2024)
#Acute cardiogenic pulmonary edema
#Acute HFpEF exacerbation
#Fever with Staph aureus pneumonia with septic shock
#Leukocytosis
#Anemia
#Metabolic acidosis with increased anion gap due to worsening CHRISS and lactic acidosis
#Lactic acidosis
#Transaminitis with hyperbilirubinemia due to shock liver
#Elevated troponin likely due to demand ischemia with type II IA from shock state � peaked at 0.796 on 07/31/2024
#A-fib with RVR now in NSR
#Metastatic colorectal cancer with suspected lung metastasis (diagnosed via colonoscopy on 06/22/2024 with partially obstructing tumor seen in the rectum 4 cm from the anal verge, invasive low-grade colorectal adenocarcinoma)
#PET avid 2.2 cm right upper lobe nodule originally planned for robotic bronchoscopy on 08/03/2024 (will be deferred for now)
#HAN on auto CPAP
#History of psoriasis previously on Enbrel
#History of hepatitis A
#History of COVID-19 (04/03)
#Restrictive lung disease (suspected based on spirometry from 05/15/2021, however patient was coughing during testing and post-bronchodilator FVC was WNL at 84% predicted
Plan:
- Continue mechanical ventilation with daily SAT/SBT if clinically indicated
- prn nebulized bronchodilators - not currently bronchospastic
- Continue aspiration precautions
- Titrate FiO2 + PEEP to maintain SpO2 >90-94%
- Maintain plateau pressure <30
- Now that he is being started on CRRT, no need to continue with diuresis; given that he is on vasopressors, will remain with no ultrafiltration today, and will reassess tomorrow
- Replete electrolytes with K>4, Mg>2 while being diuresed
- Echo from 07/31/2024 showed normal biventricular function with normal RV function with top normal RV size, with mildly elevated PASP at 38 mmHg
- Cardiology consulted - recs appreciated
- Continue broad spectrum ABx with ancef and vancomycin s/p cefepime; MRSA swab negative but sputum Cx growing S aureus, so need to continue IV vanco
- Respiratory culture from 07/31/2024 is growing Staphylococcus aureus ---> follow-up sensitivities, and check another set of surveillance blood cultures today
- Blood cultures from 07/31/2024 growing GPC's � follow-up species and sensitivities
- ID consulted - recs appreciated
- trend WBC and monitor fever curve; Tx with tylenol but keep <2g per 24 hrs given his transaminitis
- Continue vasopressors and maintain MAP>65, SBP>90
- Trend sHCO3 and continue with bicarb drip; trend pH and pCO2 with serial blood gases
- Trend lactate until <2 mmol/L
- Troponin peaked on 07/31/2024 at 0.796; no longer need to continue trending at this time
- Trend LFTs and T. bili
- Renally dose all meds/Abx
- Trend sCr, UOP and continue strict I/O
- Maintain euglycemia with goal BG 140-180 with q6hr ISS
- Trend H/H and transfuse if needed to keep Hb>7g/dL; keep plt>20k, unless there is concern for bleeding then keep plt>50k
- DVT ppx: Eliquis changed to heparin gtt now that he is on CRRT
Once patient is discharged (assuming that he survives this hospitalization), he will follow-up with us in the office again. He last saw us on 07/25/[address] Olguin.
Patient's , Adriana, was updated at bedside and was present during rounds. All questions were answered and emotional support was provided.
Critical care statement: A total of 47 minutes of critical care time was provided for this patient today. This includes management of unstable vital signs, evaluation of the patient at bedside, reviewing the patient's pertinent medical records
including radiographs, microbiology, laboratory evaluations, and discussion with primary team, consultants, pharmacy, nutrition, physical therapy, case management, charge nurse, critical care nursing, and respiratory therapy.
Data:
CXR 07/31/2024: Prominent markings suggesting combination of interstitial and to a lesser extent alveolar acute pulmonary edema.
CXR 08/01/2024: Findings concerning for progressed moderate pulmonary edema. Developing bibasilar pneumonia cannot be excluded.
Subjective Dataa
Subjective Data
Date of Service:
Date of Service: August 01, 2024
Chief Complaint: Triage Nurse Follow Up, Pulmonary Follow Up and Vent Management Follow Up
Subjective:
Pt seen and evaluated this AM. Cr worsening this AM. Remains intubated on AC/CMV: 16/550/40%/8 with PIP: 21 cmH2O, VTe 399 mL and breathing at 20 breaths/min.. Remains on levophed 20mcg/min and vaso at 0.03 units/min. BCx positive for GPCs. Hes
on precedex at 0.8mcg/kg/hr and fentanyl gtt at 50mcg/hr. Small amount of ETT secretions. He follows commands but is anxious during stimulation. Poor UOP from bourgeois. Patient's , Adriana, at bedside and all questions were answered. Patient's
heart rate is 70, BP via right radial A-line: 105/35 and saturating 100%.
Review of Systems
General: Unobtainable - Sedation
Objective Data
Data Reviewed
Vital Signs / I&O / Oxygen:
Vital Signs
Temp Pulse Resp BP Pulse Ox
98.8 F 70 19 163/41 100
08/01/24 07:07 08/01/24 08:00 08/01/24 08:00 08/01/24 05:00 08/01/24 08:00
Intake and Output
07/31/24 08/01/24 08/02/24
06:59 06:59 06:59
Intake Total 2801.1 / 3002.8 392.1 / 392.1
Output Total 317 / 325 8 / 8
Balance 2484.1 / 2677.8 384.1 / 384.1
SaO2 [A/C] 100
SaO2 100
Physical Exam
General: Respiratory Distress (negative), Comfortable, Chills (negative), Sweats (negative) and Other (Patient intubated, sedated and on vasopressors)
HEENT: Normocephalic and Anicteric
Cardiovascular: S1-S2 and Peripheral Edema (negative)
Respiratory: Wheeze (negative), Crackles (negative), Rhonchi (negative), Non-Labored Respirations, Stridor (negative) and ET Tube (Mechanical breath sounds heard bilaterally)
GI: Soft, Non Distended and Normal Bowel Sounds
Neurology: Tremors (negative), Other (Sedated) and Other (Pupils +1 mm bilaterally; intact corneal reflexes bilaterally)
Skin: Warm and Dry
Labs/Micro/Reports
Lab Data
08/01/24 03:51
Laboratory Results
07/31/24 07/31/24 08/01/24
17:56 23:13 03:51
PT 19.2 H
INR 1.59
APTT 43.9 H Cancelled
pH 7.28 L 7.27 L
pCO2 30 L 30 L
pO2 161 H 194 H
HCO3 14.1 L* 13.8 L*
O2 Delivery Level 40%
08/01/24 08/01/24
04:21 08:14
PT
INR
APTT 41.9 H
pH 7.34 L
pCO2 25 L
pO2 123 H
HCO3 13.5 L*
O2 Delivery Level
Microbiology
07/31/24 07:54 Blood/Venous Blood Culture - Preliminary
Positive culture in progress
07/31/24 07:54 Blood/Venous Gram Stain - Preliminary
07/31/24 07:54 Blood/Venous Blood Culture - Preliminary
Positive culture in progress
07/31/24 07:54 Blood/Venous Gram Stain - Preliminary
07/31/24 11:49 Urine Legionella Urinary Antigen - Final
Negative for Legionella pneumophila Serogroup 1 antigen.
A negative result does not rule out the possiblity of
Legionella infection due to other serogroups or species of
Legionella. Clinical correlation is recommended.
07/31/24 11:49 Urine Streptococcus pneumoniae Antigen (M - Final
Negative for Streptococcus pneumoniae antigen.
A negative result does not exclude infection with
Streptococcus pneumoniae. Clinical correlation is
recommended.
07/31/24 12:18 Endotracheal Gram Stain - Preliminary
07/31/24 12:18 Nose Nasal Screen MRSA (PCR) - Final
MRSA not detected - performed by PCR methodology.
07/31/24 08:10 Nasal Swab Influenza Types A & B (KHANG) - Final
Negative for Influenza A & B, NAAT
Negative results must be combined with clinical observations
and patient history.
Nucleic Acid Amplification test (NAAT)performed on the
[employer] platform.
[2024-08-01 08:37] LABS: HCO3 13.5 mmol/L (21-28)
--- NOTE | 2024-08-01 08:40 | W.PN.HOSP.TC ---
Today's Communication/Plan
-
see plan
Assessment / Plan
Assessment / Plan
Mr. вИан Redd is a 64-year-old man with a past medical history of recently diagnosed colorectal cancer, persistent atrial fibrillation, essential hypertension who presents to the ER with dizziness. Patient reports feeling unwell for the last
2 days. He was recently started on metoprolol and Eliquis for atrial fibrillation. Overnight admission patient developed flash pulmonary edema requiring transfer to the ICU, also with high fever.
CXR 07/31/24
IMPRESSION:
Prominent markings suggesting combination of interstitial and to a lesser extent alveolar acute pulmonary edema.
TTE 07/31/24
CONCLUSIONS
Normal left ventricular chamber size. Normal left ventricular systolic
function. Left ventricular ejection fraction is 55-60%. Normal regional wall
motion. Mild concentric left ventricular hypertrophy.
Top normal right ventricular size. Normal right ventricular systolic function.
Mild aortic regurgitation.
Mild tricuspid regurgitation. Estimated pulmonary artery pressure of 38 mmHg
assuming a right atrial pressure of 8mmHg.
No prior study for comparison
Indications:
flash pulmonary edema
RUQ US 07/31
FINDINGS:
Transabdominal grayscale ultrasound of the abdomen was obtained.
The liver is normal.
There is normal flow in the portal and hepatic veins
The spleen is normal.
There is cholelithiasis with a 5 mm gallstone layering in the dependent position.
There is no thickening of gallbladder wall
There is no pericholecystic edema
There is no dilatation of the common or intrahepatic ducts.
The common duct measures 5.3 mm.
The kidneys are normal in size contour and echogenicity bilaterally.
There is no hydronephrosis.
The pancreas, upper abdominal aorta and upper inferior vena cava are normal
There is small right pleural effusion
Acute Respiratory Failure requiring intubation
Concern for heart failure/flash pulmonary edema versus severe pneumonia
Cardiogenic versus septic Shock
Renal Failure
Hyperkalemia
Lactic Acidosis
-s/p intubation morning of 07/31
-IV lasix without significant output and worsening renal function; started on IV sodium bicarb this morning - will wait to see cardiologoy and renal recommendations as volume status unclear
-Smokehouse Operator Consult
-Cardiology consult
-Nephrology consult
-TTE results above
-continue IV Levophed/ VAsopressin
-sedation; SAT/SBT
-portable x-ray this morning
-continue broad spectrum abx for pneumonia
-Trop peaked at 0.749 - started on a heparin gtt in replace of Eliquis
Worsening Normocytic Anemia
-No evidence of active bleeding
Colorectal Adenocarcinoma with possible lung mets
-Recently started chemotherapy and radiation
-Schedule for lung biopsy as outpatient
Persistent Atrial Fibrillation
-Eliquis changed to heparin gtt given elevated Troponins
-Continue Metoprolol for rate control if blood pressure improves
Essential Hypertension
-BP running low - Hold all oral meds
Hyperlipidemia
-Continue rosuvastatin
DVT proph: Eliquis
Code Status: Full Code
Total Critical Care Time 50 minutes. I was immediately available to the patient and staff. I personally examined, reviewed labs, diagnostic images/reports, interpretations, treatment plans, discussed patient care with other providers and family
or caregivers (if patient is unable to make decisions), entered orders as appropriate and documented the medical record.
Anticipated Discharge: > 48 hours
Subjective/Interval History
-
Date of Service: August 01, 2024
intubated
Objective Data
-
Labs:
Laboratory Results
07/31/24 08/01/24 08/01/24
23:13 03:51 04:21
WBC 18.2 H
Hgb 10.3 L
Hct 32.4 L
Plt Count 107 L D
APTT Cancelled 41.9 H
HCO3 14.1 L* 13.8 L*
Sodium 134 L
Potassium 6.5 H*
Chloride 105
Carbon Dioxide 13 L*
BUN 55 H
Creatinine 2.5 H
Glucose 98
Calcium 7.5 L
Total Bilirubin 2.7 H D
AST > 7500 H*
ALT 4001 H*
Alkaline Phosphatase 215 H
08/01/24 08/01/24
08:14 11:00
WBC
Hgb
Hct
Plt Count
APTT Pending
HCO3 13.5 L*
Sodium Pending
Potassium Pending
Chloride Pending
Carbon Dioxide Pending
BUN Pending
Creatinine Pending
Glucose Pending
Calcium Pending
Total Bilirubin
AST
ALT
Alkaline Phosphatase
Vital Signs:
Vital Signs
Temp Pulse Resp BP Pulse Ox
98.8 F 70 19 163/41 100
08/01/24 07:07 08/01/24 08:00 08/01/24 08:00 08/01/24 05:00 08/01/24 08:00
I&O
07/31/24 08/01/24 08/02/24
06:59 06:59 06:59
Intake Total 2801.1 / 3002.8 392.1 / 392.1
Output Total 317 / 325 8 / 8
Balance 2484.1 / 2677.8 384.1 / 384.1
Review of Systems
-
Unable to obtain full review of systems at this time due to: Patient Intubation
Physical Exam
-
General: Intubated
HEENT: PERRLA
Respiratory: Negative Wheezes
Cardiac: Regular Rhythm and S1/S2
GI: Soft and Nontender
Musculoskeletal: No Edema
Skin: Warm and Dry; Negative Rash
Neuro: Awake
Psych: Calm
Data Reviewed
-
Diagnostic Radiology: Report Reviewed by me
Labs: Labs Reviewed by me
[2024-08-01 08:42] LABS: Lactic Acid 6.3 mmol/L (0.7-2.0)
--- NOTE | 2024-08-01 08:54 | W.PN.CARDCBS ---
Today's Communication / Plan
-
IV pressor support as needed, wean as possible
Agree with hemodialysis in the setting of acute kidney injury with rising creatinine, poor response to IV Lasix and need for volume removal
Anticoagulation when okay with other services.
Impression / Plan
-
Primary Publication Director: Dr. Hiren Vicente
HPI:
64-year-old man with recently diagnosed colorectal cancer with possible lung metastasis and recent diagnosis of atrial fibrillation who presented with lightheadedness and dizziness after starting oral metoprolol as an outpatient and presented to
[place] emergency department for further management. After being found to have CHRISS and anemia he was admitted for further management. Unfortunately developed increased work of breathing this morning, became tachycardic and was found to be
febrile. Did not clinically improve with BiPAP and he was subsequently intubated and transferred to the medical ICU for further management. Currently being treated with broad-spectrum antibiotics and requiring pressor support.
Seen in the outpatient cardiology office 07/26/24 and was in AF with a rapid ventricular rate of 130 bpm. At that visit he had yet to initiate Toprol-XL which was ordered by his primary care physician. At that office visit he agreed to initiate
Toprol-XL 25 mg daily for rate control with plan to defer recommendations regarding rhythm control until he was adequately anticoagulated (atrial fibrillation of unknown duration) and to allow for intermittent interruption of anticoagulation for
planned upcoming procedures regarding his recently diagnosed colorectal cancer with likely pulmonary metastases (bronchoscopy, port placement, colorectal surgery). Eliquis 5 mg twice daily was also initiated on 07/26/24..
Cardiology is consulted for possible heart failure as a cause of his respiratory decompensation. proBNP was mildly elevated (3210), it is possible there is some component of heart failure with preserved ejection fraction.
On presentation to the emergency department 07/30/24, he was in atrial fibrillation with reasonably controlled ventricular rate of 105 bpm. EKG of July 31, 2024 finds sinus rhythm at 77 bpm.
Assessment:
MSOF (resp failure, CHF, liver failure, renal failure)
Hypotension requiring pressors
CHRISS (likely as a consequence of hypotension, possibly from septic shock versus cardiogenic shock or combination of both)
Acute hypoxic respiratory failure requiring intubation 07/31/24
Liver failure (likely as a consequence of hypotension, possibly from septic shock versus cardiogenic shock or combination of both)
Fever
Sepsis, unclear source
Concern for flash pulm edema
Recent diagnosis paroxysmal atrial fibrillation
Colorectal cancer, suspected metastatic, diagnosed 06/22/2024, not yet started on therapy
Pulmonary nodule with concern for metastasis, scheduled for lung biopsy 08/03
Hypertension
Hyperlipidemia
Obstructive sleep apnea
Obesity
ECHO 07/31/24:
Normal LV function. LVEF is 55-60%. No wall motion abnormality. Top normal right ventricular size with normal RV function. Mild AI and mild TR. Estimated pulmonary artery pressure of 38 mmHg
Plan:
He remains critically ill with MSOF (resp failure, CHF, liver failure, renal failure), shock, sepsis, lactic acidosis. He remains pressor dependent.
- Continue hemodynamic support with IV pressors as needed
Currently on Levophed and vasopressin with attempts to wean vasopressin this morning
-Decompensated heart failure with preserved ejection fraction presenting with rapid development of pulmonary edema
Poor urine output with attempted IV Lasix diuresis in the setting of acute kidney injury and rising creatinine
Planned for hemodialysis for volume removal
- Acute kidney injury likely related to hypotensive injury
Rising creatinine
Planned for hemodialysis initiation today
- Marked hepatic injury with rising transaminases likely related to hypotensive injury
IV pressors for blood pressure support
Volume removal for decompensated heart failure with preserved ejection fraction
Minimize hepatotoxic drugs
- Persistent atrial fibrillation recently converted to sinus rhythm (this hospital stay)
Resume anticoagulation for atrial fibrillation related thromboembolic risk reduction if and when okay with primary service and consultants (CHADSVASc = 2 with CHF, HTN) + higher thrombotic risk with malignancy
If/when recurs with atrial fibrillation will likely need rate control (AV kalin blockers as BP tolerates), no amiodarone given hepatic injury
- Fever/Possible pneumonia
Broad-spectrum antibiotics as per primary service and critical care team
-d/w ICU nursing and at bedside
Critical care time 55 min
Progress Note - Publication Director
Subjective
Date of Service: August 01, 2024
Intubated and sedated appears comfortable
Objective
Labs:
08/01/24 03:51
Labs
Hgb 10.3 g/dL (13.0-18.0) L 08/01/24 03:51
Hct 32.4 % (39.0-52.0) L 08/01/24 03:51
Plt Count 107 10^3/uL (130-400) L D 08/01/24 03:51
PT 19.2 Sec (11.4-14.6) H 07/31/24 17:56
INR 1.59 07/31/24 17:56
APTT 41.9 Sec (23.4-35.0) H 08/01/24 04:21
Sodium 134 mmol/L (135-145) L 08/01/24 03:51
Potassium 6.5 mmol/L (3.5-5.1) H* 08/01/24 03:51
BUN 55 mg/dl (9-20) H 08/01/24 03:51
Creatinine 2.5 mg/dL (0.7-1.3) H 08/01/24 03:51
Glucose 98 mg/dl (70-99) 08/01/24 03:51
Troponins
07/31/24 07/31/24 07/31/24
09:15 12:18 15:15
Troponin I Cancelled 0.796 H* Cancelled
07/31/24 07/31/24 08/01/24
17:56 21:15 03:51
Troponin I 0.749 H* Cancelled 0.536 H*
08/01/24
03:51
Troponin I 0.544 H*
Vital Signs and I&O:
Vital Signs
Temp Pulse Resp BP Pulse Ox
98.8 F 70 19 163/41 100
08/01/24 07:07 08/01/24 08:00 08/01/24 08:00 08/01/24 05:00 08/01/24 08:00
Vital Signs
Temp Pulse Resp BP Pulse Ox
98.8 F 70 19 163/41 100
08/01/24 07:07 08/01/24 08:00 08/01/24 08:00 08/01/24 05:00 08/01/24 08:00
Intake & Output
07/30/24 07/31/24 08/01/24 08/02/24
06:59 06:59 06:59 06:59
Intake Total 2801.1 / 3002.8 392.1 / 392.1
Output Total 317 / 325 8 / 8
Balance 2484.1 / 2677.8 384.1 / 384.1
Physical Exam
Physical Exam
Intubated and sedated
Regular rate and rhythm with normal S1 and S2, no S3 and no S4, there is a grade 1/6 apical holosystolic murmur and no rubs. PMI is normally placed
Lungs with coarse breath sounds anteriorly, bilaterally
Abdomen is large, soft, nondistended, positive bowel sounds
Extremities with +2 pretibial pitting edema bilaterally
--- NOTE | 2024-08-01 09:30 | PTCARENOTE ---
Rec'd care of patient at 0700. Patient sedated on Precedex/Fentanyl drips. Opening eyes and nodding head appropriately. Following commands when alert. RASS 0 to -1. Occasional periods of anxiety/restlessness. Pupils equal and reactive; +2mm. NSR on
tele monitor. +1 anasarca. Palpable pulses. Levophed and Vaso infusing. Titrating Levophed for SBP>90. Right radial mike leveled and zeroed. #8 ett, 25cm @ the lip. A/C 16/559/8/40%. Patient overbreathing vent. Lung sounds coarse throughout.
Occasional weak, moist cough. Small amount of secretions suctioned from ett. Hypo BS. OGT for meds. Alvarez in place for critical I/O. Output 0-5 cc's/hr. Security Support Analyst at bedside and aware. Advised RN not to give Lasix. CRRT to be initiated. IRAD
contacted for line. Repeat labs sent. Lactic trending up- 6.3. Positive blood cultures in progress. Cyber Engineer notified of critical values. Right dual lumen PICC with Bicarb/Precedex/Fentanyl/Levo/Vaso/Heparin drips infusing. Left midline capped.
at bedside; all questions answered. Emotional support provided.
[2024-08-01 09:54] LABS: Blood Urea Nitrogen 57 mg/dl (9-20); Calcium 7.6 mg/dl (8.4-10.2); Carbon Dioxide 12 mmol/L (22-30); Chloride 104 mmol/L (98-107); Estimated Creatinine Clearance 40 ml/min; Glucose 106 mg/dl (70-99); Magnesium 2.3 mg/dl (1.6-2.3); Potassium 5.9 mmol/L (3.5-5.1); Sodium 134 mmol/L (135-145); eGFR 25.84
--- NOTE | 2024-08-01 09:58 | W.CON.NEPH ---
Consultation
-
Date/Time Consultation Requested: August 01, 2024 6 AM
Date/Time Consultation Performed: August 01, 2024 at 9 AM
Requesting Provider: Jose Carlos GRAYSON
Performing Provider: Dr. Fernando Gold
Reason for Consultation: Acute kidney injury and hyperkalemia
Medical History
-
Chief Complaint: Acute kidney
History of Present Illness:
64-year-old man with recently diagnosed colorectal cancer with possible lung metastasis and recent diagnosis of atrial fibrillation who presented with lightheadedness and dizziness after starting oral metoprolol as an outpatient and presented to
[place] emergency department. He presented in acute kidney injury admitted to the floors upgraded to the ICU for increased work of breathing ultimately intubated in the ICU with hyperkalemia.
Patient is critically ill on pressor support essentially anuric.
Positive blood cultures pending organism. Staph aureus sputum culture.
Renal consult for acute kidney injury and hyperkalemia
All history obtained from reviewing chart discussion with critical care nurse and discussion with his at the bedside
Past Medical History
Colorectal Adenocarcinoma
Persistent Atrial Fibrillation
Essential Hypertension
Hyperlipidemia
Restrictive Lung Disease
Obstructive Sleep Apnea
Psoriasis
Social History
Tobacco: Non-Smoker
Family History
Family History: Not Pertinent
Allergies / Home Medications
Allergy/AdvReac Type Severity Reaction Status Date / Time
No Known Allergies Allergy Verified 07/30/24 16:02
�Medication �Instructions �Recorded �Confirmed �Type
olmesartan 40 1 tab PO HS Blood Pressure 06/22/24 07/30/24 History
mg-hydrochlorothiazide 12.5 mg
tablet
rosuvastatin 10 mg tablet 10 mg PO HS High Cholesterol 06/22/24 07/30/24 History
apixaban 5 mg tablet (Eliquis) 5 mg PO BID Blood Clot 07/30/24 07/30/24 History
Prevention/Tx
lorazepam 1 mg tablet 1 mg PO HSPRN PRN sleep 07/30/24 07/30/24 History
metoprolol succinate 25 mg 25 mg PO HS Blood Pressure 07/30/24 07/30/24 History
tablet,extended release 24 hr
Review of Systems
-
Unable to obtain full review of systems at this time due to: Patient Intubation
Physical Exam
Vital Signs
Vital Signs
Temp Pulse Resp BP Pulse Ox
98.8 F 72 23 163/41 100
08/01/24 07:07 08/01/24 09:15 08/01/24 09:15 08/01/24 05:00 08/01/24 09:15
Lab Results
WBC 18.2 10^3/uL (4.8-10.8) H 08/01/24 03:51
RBC 3.83 10^6/uL (4.70-6.10) L 08/01/24 03:51
Hgb 10.3 g/dL (13.0-18.0) L 08/01/24 03:51
Hct 32.4 % (39.0-52.0) L 08/01/24 03:51
Plt Count 107 10^3/uL (130-400) L D 08/01/24 03:51
eGFR 25.84 08/01/24 08:14
Phosphorus 5.4 mg/dl (2.5-4.5) H 07/31/24 12:19
Rll-Z-Zldnpevhfkl Pept 3210 pg/ml 07/31/24 07:54
Physical Exam
General no acute distress
HEENT ET tube
lungs coarse breath sounds bilateral
heart regular S1-S2 positive. Positive ectopy
abdomen soft nontender positive bowel sounds
extremities no edema pulses present bilateral
Neurologically intubated and sedated
Skin no lesions no abrasions no petechiae
Data Reviewed
-
Radiology: Image Personally Visualized and interpreted (Moderate pulmonary edema)
Assessment/Plan
-
64-year-old man with recently diagnosed colorectal cancer with possible lung metastasis and recent diagnosis of atrial fibrillation who presented with lightheadedness and dizziness after starting oral metoprolol as an outpatient and presented to
[place] emergency department. He presented in acute kidney injury admitted to the floors upgraded to the ICU for increased work of breathing ultimately intubated in the ICU with hyperkalemia.
Patient is critically ill on pressor support essentially anuric.
Positive blood cultures pending organism. Staph aureus sputum culture.
Renal consult for acute kidney injury and hyperkalemia
Impression.
Acute kidney injury and hyperkalemia secondary to septic shock.
Colorectal cancer newly diagnosed June 2024 with possible lung metastasis
Atrial fibrillation on oral anticoagulation
Mechanical ventilation.
Bacteremia.
Plan.
Patient is essentially anuric with no obvious signs of heart failure. Echocardiogram reviewed this is presenting as septic shock with lactic acidosis on 2 pressors.
Urinalysis no protein or hematuria
Patient would require renal replacement therapy in the form of CRRT.
Discussed this with critical care team will place dialysis orders.
was present at bedside agrees with the plan.
Broad-spectrum antibiotics.
I do not feel patient needs diuretics at this time.
Continue bicarbonate drip
Total Time Spent with Patient (in minutes): 45
--- NOTE | 2024-08-01 10:26 | PTCARENOTE ---
IRAD at bedside to place HD catheter.
--- NOTE | 2024-08-01 11:05 | CHAP ---
Brief introductory visit with Mr. Redd's (she was on the phone with their daughter). Confirmed that she did want a aerospace stress engineer called. Monsignor Pineda anticipates arriving around noon today to provide Sacrament of the Sick. Prayer blanket
left with nurse because IRAD was at bedside. Will follow.
[2024-08-01] MEDS: TYLENOL ORAL SOLUTION 650 MG TUBE (11:06)
[2024-08-01 11:41] LABS: APTT 45.4 Sec (23.4-35.0)
[2024-08-01] MEDS: SENOKOT-S 1 TABLET PO (12:09)
[2024-08-01] MEDS: SUBLIMAZE 50 MCG IV ×3 (12:24→22:24)
--- NOTE | 2024-08-01 12:25 | PTCARENOTE ---
Minor changes in assessment. CPOT -4. Fentanyl bolus administered. Core temp up to 101.1. Tylenol administered through OGT. Around 1145, BP down to 70/30's. Levophed titrated up for SBP>90. PTT- 45.4. Increased per protocol. Next PTT due at 1800. HD
cath in place. CRRT to be initiated once xray confirmation of line placement. No other changes.
[2024-08-01 12:32] LABS: Glucose - Point of Care 74 mg/dl (70-99)
--- NOTE | 2024-08-01 12:45 | W.PN.INTV ---
Today's Communication / Plan
Recommendations
Start CRRT
Replete electrolytes
Replace bicarb
Critical condition,explained to
Assessment
-
Impression
Mr. Redd is a 64-year-old man, past medical history significant for recently diagnosed colorectal cancer in June,, persistent atrial fibrillation recently started on metoprolol and Eliquis, essential hypertension who presented to the
emergency department with a chief complaint of dizziness.
Plan was to admit for workup of anemia, condition worsened and patient ended up in ICU, requiring intubation, vasopressors and sedation
Currently patient's condition is critical, multiorgan failure including CHF, CHRISS, metabolic acidosis, respiratory failure, hypoxic liver
Condition explained to patient's
Plan to place central line and catheter for hemodialysis
Assessment
Critical condition with multiorgan involvement
Worsening renal function refractory to diuresis
Hyperkalemia
Metabolic acidosis
Mechanical intubation secondary to respiratory failure
Plan
#Critical condition with multiorgan involvement
As per cards, although normal ejection fraction, given drop by proBNP history of hypertension and past A-fib along with patient's clinical condition and chest x-ray findings it could be heart failure with preserved ejection fraction ECHO 07/31/24:
Normal LV function. LVEF is 55-60%. No wall motion abnormality. Top normal right ventricular size with normal RV function. Mild AI and mild TR. Estimated pulmonary artery pressure of 38 mmHg
Hypoxic liver-liver enzymes markedly elevated possibly due to poor perfusion
No past history of CKD, patient's creatinine jumped to 2.7, urine output poor, poorly responsive to diuretics, plan to do hemodialysis
Acute respiratory failure, metabolic acidosis acidotic pH, on ventilator
Blood culture came back positive for Staph aureus-continue cefepime and vancomycin
Adjusted cefepime dose for serum creatinine
#Acute respiratory failure requiring mechanical ventilation
Patient on mechanical ventilation due to acute respiratory failure
Vent settings include PEEP of 8, FiO2 45%, tidal volume 500 and respiratory rate of 16
Follow ABGs and CMP
Replace bicarb as needed-given volume overload, replace bicarb at slow rate
#Worsening renal function refractory to diuresis
Patient has no past medical history of chronic kidney disease, worsening renal function most likely acute secondary to the shock
Olmesartan and hydrochlorothiazide on hold
Creatinine 2.7, patient an uric
Nephro consult appreciated -continuous renal replacement therapy recommended by nephrology
Continue broad-spectrum antibiotics
Continue bicarb replacement
#Metabolic acidosis
Lactic acid 6.3, bicarb 12
continue to replace bicarb as able
# Anemia
Patient has no active source of bleeding
Iron studies normal
Hemoglobin increased from 9-10
Continue to monitor H&H
# Other medical condition
Colorectal adenocarcinoma with possible lung mets-recently started chemo and radiation/consult heme-onc
Persistent atrial fibrillation-continue Eliquis for anticoagulation and metoprolol for rate control
Essential hypertension-continue meds as able
Hyperlipidemia-continue rosuvastatin
# GI prophylaxis-pantoprazole 40 mg twice daily
# DVT prophylaxis-Eliquis 5 mg twice daily
# CODE STATUS-full code
Subjective Dataa
Subjective Data
Date of Service:
Date of Service: August 01, 2024
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
Subjective:
Patient is getting worse, deteriorated overnight
Patient is intubated, on vasopressors, worsening metabolic acidosis and hyperkalemia, worsening renal function, poor urine output
Adriana aware of patient's condition
Wants to go with hemodialysis as advised by nephrology at the moment
Review of Systems
General: Unobtainable - Sedation
Objective Data
Data Reviewed
Vital Signs / I&O / Oxygen:
Vital Signs
Temp Pulse Resp BP Pulse Ox
101.1 F H 70 20 163/41 100
08/01/24 12:00 08/01/24 12:30 08/01/24 12:30 08/01/24 05:00 08/01/24 12:30
Intake and Output
07/31/24 08/01/24 08/02/24
06:59 06:59 06:59
Intake Total 2801.1 / 3002.8 1347.5 / 1347.5
Output Total 317 / 325
Balance 2484.1 / 2677.8 1334.5 / 1334.5
SaO2 [A/C] 100
SaO2 100
Physical Exam
General: Other (Patient intubated, sedated and on vasopressors with poor urine output)
HEENT: Normocephalic and Anicteric
Cardiovascular: S1-S2, Regular Rhythm and Other (Tachycardia)
Respiratory: ET Tube and Other (Mechanical breath sounds bilaterally)
GI: Soft, Non Distended and Normal Bowel Sounds
Neurology: Other (Patient minimally responsive, anxious when responsive, sedated,)
Skin: Warm and Good Color
Labs/Micro/Reports
Lab Data
08/01/24 03:51
Laboratory Results
07/31/24 07/31/24 08/01/24
17:56 23:13 03:51
PT 19.2 H
INR 1.59
APTT 43.9 H Cancelled
pH 7.28 L 7.27 L
pCO2 30 L 30 L
pO2 161 H 194 H
HCO3 14.1 L* 13.8 L*
O2 Delivery Level 40%
08/01/24 08/01/24 08/01/24
04:21 08:14 11:21
PT
INR
APTT 41.9 H 45.4 H
pH 7.34 L
pCO2 25 L
pO2 123 H
HCO3 13.5 L*
O2 Delivery Level
Microbiology
07/31/24 07:54 Blood/Venous Blood Culture - Preliminary
Positive culture in progress
07/31/24 07:54 Blood/Venous Gram Stain - Final
07/31/24 12:18 Endotracheal Respiratory Culture - Preliminary
Staphylococcus aureus
07/31/24 12:18 Endotracheal Gram Stain - Preliminary
07/31/24 07:54 Blood/Venous Blood Culture - Preliminary
Positive culture in progress
07/31/24 07:54 Blood/Venous Gram Stain - Preliminary
07/31/24 11:49 Urine Legionella Urinary Antigen - Final
Negative for Legionella pneumophila Serogroup 1 antigen.
A negative result does not rule out the possiblity of
Legionella infection due to other serogroups or species of
Legionella. Clinical correlation is recommended.
07/31/24 11:49 Urine Streptococcus pneumoniae Antigen (M - Final
Negative for Streptococcus pneumoniae antigen.
A negative result does not exclude infection with
Streptococcus pneumoniae. Clinical correlation is
recommended.
07/31/24 12:18 Nose Nasal Screen MRSA (PCR) - Final
MRSA not detected - performed by PCR methodology.
07/31/24 08:10 Nasal Swab Influenza Types A & B (KHANG) - Final
Negative for Influenza A & B, NAAT
Negative results must be combined with clinical observations
and patient history.
Nucleic Acid Amplification test (NAAT)performed on the
[employer] platform.
[2024-08-01] MEDS: RFP-400 HD Soln (K+ 2 mEq/L) 15000 ML CRRT-IRR ×2 (12:56→21:21)
--- NOTE | 2024-08-01 13:24 | CON.ID ---
Consultation
-
Date/Time Consultation Requested: 08/01/24 13:07
Date/Time Consultation Performed: 08/01/24 17:55
Requesting Provider: Dr Silva
Performing Provider: Dr Smith
Reason for Consultation: s aureus bacteremia
Chief Complaint / Past History
Chief Complaint
dizziness
History of Present Illness
Mr Redd is a 64 year old male with recently diagnosed metastatic colorectal cancer (lung, yet to start chemotherapy), Psoriatic Arthritis (last dose of enbrel ~04/2024 per ), chronic lymphedema who presented here 07/31 for a 1-2 day history
of dizziness and lethargy. No sick contacts. did report that he has had a nonproductive cough for several weeks. No sick contacts. No wounds. His psoriasis has been notably well controlled over the last 3 months without active lesions that
she is aware of. No hardwear. Majority of history obtained from chart review and .
On presentation here he was found to be hypotensive, responding to IVF however, then with progressive hypoxemia and hypotension requiring initiation of pressors, developed fever. Initial labs showed Hb 9, sodium 132, creatinine 1.4, lactate 4, AST
98, ALT 115, ALP 230, and COVID-19 antigen negative. He became mottled and an HAND SOLE SEWER was called, he was placed on bipap without improvement, CXR showed pulmonary edema, he was transfered to the ICU and emergently intubated. Since then he has been
essentially anuric and started on CRRT. Initial blood cultures resulted with GPCs in clusters and sputum culture with S aureus. MRSA nasal swab negative. Patient currently on vancomycin and cefepime. ID is consulted for assistance with
management.
Past History
Additional Past Medical History:
HAN on auto CPAP, colorectal cancer, pulmonary nodule, A-fib on Eliquis, chronic cough, history of psoriasis with psoriatic arthritis previously on Enbrel, history of COVID-19 (March 2024), history of hepatitis A, restrictive lung disease,
external hemorrhoids, dyslipidemia, obesity, hypertension
Additional Past Surgical History:
Wrist surgery, right ankle ligament surgery, lip surgery, colonoscopy
Allergy History:
No Known Allergies Allergy (Verified 07/30/24 16:02)
Medications Reviewed: Yes
Social History
Tobacco: Non-Smoker
Alcohol: None
Drug: None
Family History
Family History: Not Pertinent
Review of Systems
Review of Systems
General: Negative Fever or Chills
could not preform ROS due to the condition of the patient
Vital Signs
Temp Pulse Resp BP Pulse Ox
101.1 F H 70 20 163/41 100
08/01/24 12:00 08/01/24 12:30 08/01/24 12:30 08/01/24 05:00 08/01/24 12:30
Physical Exam
Physical Exam
Constitutional: Acutely Ill and Other (intubated, sedated)
Cardiovascular: Regular Rate and S1/S2; Negative Murmur or Rub
Pulmonary: Clear and Symmetric; Negative Wheezes, Rales or Rhonchi
Gastrointestinal: Soft, Non Tender, Non Distended and Normal Bowel Sounds
Extremities: Negative Splinter Hemorrhage or Janeway Lesions
Musculoskeletal: Negative Joint Swelling
Skin: Warm and Dry; Negative Rash or Jaundice
Wound: Other (tiny skin tear on the L calf without surrounding erythema)
Neurological: Negative Awake
Lab / Diagnostic Study Results
08/01/24 03:51
Abs Immat Gran (auto) 0.2 10^3/uL (0-0.05) H 08/01/24 03:51
Absolute Neuts (auto) 12.6 10^3/uL (1.4-6.5) H 08/01/24 03:51
Absolute Lymphs (auto) 4.1 10^3/uL (1.2-3.4) H 08/01/24 03:51
Absolute Monos (auto) 1.3 10^3/uL (0.1-0.6) H 08/01/24 03:51
Absolute Basos (auto) 0.1 10^3/uL (0-0.2) 08/01/24 03:51
Immature Gran % 1.0 % (0-0.5) H 08/01/24 03:51
Neutrophils % 69.1 % (42.2-75.2) 08/01/24 03:51
Lymphocytes % 22.3 % (20.5-51.1) 08/01/24 03:51
Monocytes % 7.3 % (1.7-9.3) 08/01/24 03:51
Eosinophils % 0.0 % (0-6) 08/01/24 03:51
Basophils % 0.3 % (0-2) 08/01/24 03:51
PT 19.2 Sec (11.4-14.6) H 07/31/24 17:56
INR 1.59 07/31/24 17:56
Lactic Acid 6.3 mmol/L (0.7-2.0) H* 08/01/24 08:14
Procalcitonin 16.61 ng/ml (0.0-0.25) H* 07/31/24 12:19
Microbiology Results
Micro:
07/31/24 07:54 Blood Culture - Preliminary
Blood/Venous Positive culture in progress
Gram Stain - Final
07/31/24 12:18 Respiratory Culture - Preliminary
Endotracheal Staphylococcus aureus
Gram Stain - Preliminary
07/31/24 07:54 Blood Culture - Preliminary
Blood/Venous Positive culture in progress
Gram Stain - Preliminary
07/31/24 11:49 Legionella Urinary Antigen - Final
Urine Negative for Legionella pneumophila Serogroup 1 antigen.
A negative result does not rule out the possiblity of
Legionella infection due to other serogroups or species of
Legionella. Clinical correlation is recommended.
Streptococcus pneumoniae Antigen (M - Final
Negative for Streptococcus pneumoniae antigen.
A negative result does not exclude infection with
Streptococcus pneumoniae. Clinical correlation is
recommended.
07/31/24 12:18 Nasal Screen MRSA (PCR) - Final
Nose MRSA not detected - performed by PCR methodology.
07/31/24 08:10 Influenza Types A & B (KHANG) - Final
Nasal Swab Negative for Influenza A & B, NAAT
Negative results must be combined with clinical observations
and patient history.
Nucleic Acid Amplification test (NAAT)performed on the
[employer] platform.
Assessment / Plan
S aureus Pneumonia
Probable S aureus Bacteremia
CHRISS on CRRT
Class III Obesity
- Repeat blood cultures x2, and q48 hours until cleared
- follow for final ID and sensi from the blood and resp cultures
- somewhat reassuring that MRSA nasal screen was negative
- TTE on 07/31 without vegetations - may consider repeat if bacteremia is persistent
- influenza and covid screens negative
- continue vancomycin - given limited PK/PD data for BMI >40 on CRRT plan to continue vancomycin for now even if MSSA IDd
- added cefazolin - dosed for CRRT - dosing reviewed with clinical pharmacy
follow pressor requirements, blood cultures, cbc etc. Patient is critically ill.
--- NOTE | 2024-08-01 14:00 | CHAP ---
Msgr. Ceasar Pineda of [facility] in [place] anointed Mr. Redd and gave him an apostolic blessing. Time uncertain.
--- NOTE | 2024-08-01 14:00 | PTCARENOTE ---
CRRT initiated at 1340.
--- NOTE | 2024-08-01 14:02 | PHA.VAN.FU ---
Vancomycin Assessment / Plan
- Assessment
Renal Function: SCR Increasing
Hemodialysis Schedule: Other (initiated on [facility] @ 1.5 L/H)
WBC's are: Trending Down
Concomitant Antimicrobials: cefazolin
- Assessment - Therapeutic Drug Monitoring
Random Level: 21.5 - drawn ~10H after previous dose of 1g
- Dosing Plan
Dosing by Level: Re-dose today (Vanc 1000mg)
- Monitoring Plan
Random Level: 08/02 0600
- Follow Up
Pharmacy will continue to follow.
Vancomycin Follow UP
- -
Patient Age: 64
Patient Sex: Male
Vancomycin Day #: 2
Indication: Pulmonary/Respiratory
Requesting Provider: Dr. Ball
Pertinent Antimicrobial Allergies:
NKDA
Height / Weight:
Height 5 ft 11 in
Actual Weight 134.6 kg
Pertinent Past Medical History: BMI ~40, metastatic colorectal adenocarcinoma
- Vital Signs / Lab Results
Temp Pulse Resp BP Pulse Ox
101.1 F H 69 26 163/41 100
08/01/24 12:00 08/01/24 13:45 08/01/24 13:45 08/01/24 05:00 08/01/24 13:45
Lab Results - Hematology
07/30/24 07/31/24 07/31/24
16: 07:54 17:56
WBC 10.1 21.0 H 25.4 H
08/01/24
03:51
WBC 18.2 H
Lab Results - Chemistry
07/30/24 07/31/24 07/31/24
16:22 07:54 12:19
BUN 60 H 47 H 49 H
Creatinine 1.4 H 1.2 1.7 H
Estimated Creat Clear 75 88 62
Albumin 2.7 L 3.0 L 2.6 L
08/01/24 08/01/24
03:51 08:14
BUN 55 H 57 H
Creatinine 2.5 H 2.7 H
Estimated Creat Clear 42 40
Albumin 2.6 L
07/31/24 07/31/24 07/31/24
07:54 12:18 15:15
Lactic Acid 4.0 H* 2.1 H Cancelled
07/31/24 08/01/24 08/01/24
17:56 03:51 08:14
Lactic Acid 3.8 H 5.9 H* 6.3 H*
Microbiology Results
07/31/24 07:54 Blood Culture - Preliminary
Blood/Venous Positive culture in progress
Gram Stain - Final
07/31/24 12:18 Respiratory Culture - Preliminary
Endotracheal Staphylococcus aureus
Gram Stain - Preliminary
07/31/24 07:54 Blood Culture - Preliminary
Blood/Venous Positive culture in progress
Gram Stain - Preliminary
07/31/24 11:49 Legionella Urinary Antigen - Final
Urine Negative for Legionella pneumophila Serogroup 1 antigen.
A negative result does not rule out the possiblity of
Legionella infection due to other serogroups or species of
Legionella. Clinical correlation is recommended.
Streptococcus pneumoniae Antigen (M - Final
Negative for Streptococcus pneumoniae antigen.
A negative result does not exclude infection with
Streptococcus pneumoniae. Clinical correlation is
recommended.
07/31/24 12:18 Nasal Screen MRSA (PCR) - Final
Nose MRSA not detected - performed by PCR methodology.
07/31/24 08:10 Influenza Types A & B (KHANG) - Final
Nasal Swab Negative for Influenza A & B, NAAT
Negative results must be combined with clinical observations
and patient history.
Nucleic Acid Amplification test (NAAT)performed on the
[employer] platform.
Therapeutic Drug Monitoring
Random Vancomycin 21.5 ug/ml 08/01/24 03:51
[2024-08-01] MEDS: ANCEF 10 IV (14:16)
[2024-08-01 14:38] LABS: Lactic Acid 8.7 mmol/L (0.7-2.0)
[2024-08-01] MEDS: VANCOCIN 200 IV (15:18)
--- NOTE | 2024-08-01 16:05 | CM ---
CM reviewed chart
Pt remains acutely ill in the ICU on vent day #2
CM will continue to follow for dc planning
Discharge Disposition- TBD
[2024-08-01 16:09] LABS: Albumin 2.5 g/dl (3.5-5.0); Alkaline Phosphatase 212 U/L (38-126); Blood Urea Nitrogen 55 mg/dl (9-20); Calcium 6.6 mg/dl (8.4-10.2); Carbon Dioxide 9 mmol/L (22-30); Chloride 105 mmol/L (98-107); Estimated Creatinine Clearance 38 ml/min; Glucose 56 mg/dl (70-99); Potassium 6.7 mmol/L (3.5-5.1); Sodium 134 mmol/L (135-145); Total Protein 5.2 g/dl (6.3-8.2); eGFR 24.74
--- NOTE | 2024-08-01 16:20 | PTCARENOTE ---
CMP resulted. Critical labs reported to Charge Master Specialist. Ca 6.6. Order for repletion to be placed.
[2024-08-01] MEDS: DEXTROSE 50% SYRINGE 12.5 GRAMS IV ×2 (16:40→17:05)
--- NOTE | 2024-08-01 16:40 | PTCARENOTE ---
Minor changes in assessment. Patient alert. Nodding head. Reoriented. CRRT continued. Glucose low on labs. Fingerstick 68. D50.
[2024-08-01 16:50] LABS: Glucose - Point of Care 68 mg/dl (70-99)
[2024-08-01 17:15] LABS: Glucose - Point of Care 59 mg/dl (70-99)
[2024-08-01] MEDS: HEPARIN 25000 UNITS/250 ML IV (17:19)
[2024-08-01 17:31] LABS: AST (SGOT) > 7500 U/L (17-59)
[2024-08-01 17:32] LABS: ALT (SGPT) 4998 U/L (0-50)
[2024-08-01 17:42] LABS: Ionized Calcium 0.95 mMOL/L (1.15-1.33)
--- NOTE | 2024-08-01 17:43 | PTCARENOTE ---
Around 1700, blood pressure increased to 110-120's/30's. Ultrafiltration volume increased as tolerated; titrating down Levophed. Core temp down to 98.6. Remains in NSR; rate in the 70's. Blood sugar up to 116 s/p 2 doses of D50. Repeat labs sent.
[2024-08-01 17:44] LABS: Glucose - Point of Care 116 mg/dl (70-99)
[2024-08-01 17:53] LABS: APTT 43.8 Sec (23.4-35.0)
[2024-08-01 17:56] LABS: Lactic Acid 9.5 mmol/L (0.7-2.0)
[2024-08-01] MEDS: VERSED 2 MG IV (18:43)
--- NOTE | 2024-08-01 18:47 | PTCARENOTE ---
Patient awake and agitated. Thrashing in bed. Kicking. Precedex drip increased with no improvement. Fentanyl bolus administered and rate increased. Multiple staff members in room to maintain safety. 2mg Versed ordered and administered. Patient now
resting calmly.
[2024-08-01 18:55] LABS: Blood Urea Nitrogen 55 mg/dl (9-20); Calcium 7.1 mg/dl (8.4-10.2); Carbon Dioxide 9 mmol/L (22-30); Chloride 102 mmol/L (98-107); Estimated Creatinine Clearance 38 ml/min; Glucose 123 mg/dl (70-99); Magnesium 2.1 mg/dl (1.6-2.3); Phosphorus 7.3 mg/dl (2.5-4.5); Potassium 6.4 mmol/L (3.5-5.1); Sodium 133 mmol/L (135-145); eGFR 24.74
[2024-08-01] MEDS: SENOKOT-S 1 TABLET TUBE (19:46)
--- NOTE | 2024-08-01 20:30 | PTCARENOTE ---
rec'd patient from dayshift. at bedside, updated on plan of care overnight. assessment as documented. pt arouses to stimuli, becomes restless, thrashing in bed, moving all four extremities. b/l soft wrist restraints in place. SR on monitor. SBP
goal >90, levo (dbl concentrated)/vaso gtts infusing. arterial line leveled and zeroed. afebrile. + DP pulses w/ doppler. #8 ETT, 25 at lip, adjusted to center. AC 18/550/8/40%. diminished breath sounds noted. oral care provided. hypoactive bowel
sounds, NPO, OGT flushed and clamped, used for meds. bourgeois for I+Os, pt with minimal UOP. CRRT running, 2K bath, TFR 1.5, BFR 300, running even. calcium being repleted, f/u labs ordered for 2200. nephrology made aware of 1730 BMP results.
precedex/fent/heparin gtts continue. bicarb gtt stopped per ICU SCUBA DIVER. care ongoing.
[2024-08-01] MEDS: CRESTOR 10 MG TUBE (22:16)
[2024-08-01] MEDS: ANCEF 5 IV (22:16)
[2024-08-01 22:20] LABS: Ionized Calcium 0.97 mMOL/L (1.15-1.33)
[2024-08-01 22:34] LABS: Lactic Acid 8.6 mmol/L (0.7-2.0)
[2024-08-01 23:10] LABS: Blood Urea Nitrogen 52 mg/dl (9-20); Calcium 7.4 mg/dl (8.4-10.2); Carbon Dioxide 11 mmol/L (22-30); Chloride 101 mmol/L (98-107); Estimated Creatinine Clearance 38 ml/min; Glucose 81 mg/dl (70-99); Magnesium 2.1 mg/dl (1.6-2.3); Phosphorus 7.8 mg/dl (2.5-4.5); Potassium 6.5 mmol/L (3.5-5.1); Sodium 133 mmol/L (135-145); eGFR 24.74
[2024-08-01 23:19] LABS: Glucose - Point of Care 76 mg/dl (70-99)
--- NOTE | 2024-08-01 23:22 | PTCARENOTE ---
Addendum entered by Karina Pradhan RN 08/01/24 23:32:
per nephrology, increase CRRT therapy fluid rate to 2L/hr
Original Note:
assessment unchanged. CRRT continues. 0 labs sent, nephrology and ICU TECHNICAL SUPPORT MANAGER made aware of results. calcium to be repleted again per protocol. CHG bath and bourgeois care done. care ongoing.
[2024-08-02] VITALS (20 sets, daily range): BP systolic 57–138; BP diastolic 30–55; BMI 41.7
[2024-08-02 00:17] LABS: APTT 50.1 Sec (23.4-35.0)
[2024-08-02] MEDS: LEVOPHED 258 MG IV ×4 (01:09→23:11)
[2024-08-02 02:07] LABS: Ionized Calcium 0.98 mMOL/L (1.15-1.33)
[2024-08-02 02:24] LABS: Blood Urea Nitrogen 50 mg/dl (9-20); Carbon Dioxide 12 mmol/L (22-30); Estimated Creatinine Clearance 40 ml/min; Glucose 74 mg/dl (70-99); Magnesium 2.1 mg/dl (1.6-2.3); Phosphorus 7.9 mg/dl (2.5-4.5); eGFR 25.84
[2024-08-02] MEDS: PITRESSIN 100 IV ×2 (02:29→23:43)
[2024-08-02 02:48] LABS: Lactic Acid 8.1 mmol/L (0.7-2.0)
[2024-08-02] MEDS: PRECEDEX 100 IV ×6 (02:54→22:07)
[2024-08-02 03:31] LABS: Calcium 7.7 mg/dl (8.4-10.2); Chloride 104 mmol/L (98-107); Potassium 6.3 mmol/L (3.5-5.1); Sodium 135 mmol/L (135-145)
--- NOTE | 2024-08-02 03:36 | PTCARENOTE ---
Addendum entered by Karina Pradhan RN 08/02/24 03:57:
TT sent to nephro to order 0K bath in order to hang bags, unable to place order at this time. will switch to 0K bath on dayshift per nephro
Original Note:
nephrology notified of 0200 labs, K remains significantly elevated, switching to 0k bath
[2024-08-02] MEDS: CALCIUM GLUCONATE 100 IV ×4 (04:05→16:43)
[2024-08-02] MEDS: RFP-400 HD Soln (K+ 2 mEq/L) 15000 ML CRRT-IRR ×2 (04:20→18:25)
[2024-08-02] MEDS: ANCEF 5 IV ×3 (05:17→21:18)
[2024-08-02] MEDS: NOVOLOG FLEXPEN-MODERATE RESISTANCE SC ×4 (05:17→23:22)
[2024-08-02 06:10] LABS: B.E. -10.9 mmol/L; O2 Saturation % 99.7 % (94-98); PCO2 29 mmHg (35-48); PO2 147 mmHg (83-108)
[2024-08-02] MEDS: DEXTROSE 50% SYRINGE 12.5 GRAMS IV (06:10)
[2024-08-02 06:14] LABS: Hemoglobin 10.1 g/dL (13.0-18.0); Mean Corp Hgb Conc. 31.6 g/dL (33.0-37.0); Mean Corpuscular Hgb 26.8 pg (27.0-31.0); Mean Corpuscular Volume 84.9 fL (80.0-94.0); Mean Platelet Volume 10.6 fL (7.4-10.4); Platelet Count 118 10^3/uL (130-400); Red Blood Cell Count 3.77 10^6/uL (4.70-6.10); Red Cell Dist. Width 15.6 % (11.5-14.5)
[2024-08-02 06:16] LABS: HCO3 14.3 mmol/L (21-28); O2 Therapy 40%
[2024-08-02 06:16] LABS: Glucose - Point of Care 69 mg/dl (70-99)
[2024-08-02 06:17] LABS: Ionized Calcium 1.08 mMOL/L (1.15-1.33)
[2024-08-02] MEDS: HEPARIN 25000 UNITS/250 ML IV ×2 (06:22→18:23)
[2024-08-02 06:23] LABS: APTT 58.3 Sec (23.4-35.0)
[2024-08-02 06:40] LABS: Glucose - Point of Care 125 mg/dl (70-99)
[2024-08-02 06:41] LABS: Albumin 2.6 g/dl (3.5-5.0); Alkaline Phosphatase 274 U/L (38-126); Blood Urea Nitrogen 48 mg/dl (9-20); Calcium 7.7 mg/dl (8.4-10.2); Carbon Dioxide 14 mmol/L (22-30); Chloride 102 mmol/L (98-107); Estimated Creatinine Clearance 41 ml/min; Glucose 67 mg/dl (70-99); Phosphorus 7.9 mg/dl (2.5-4.5); Potassium 5.9 mmol/L (3.5-5.1); Sodium 134 mmol/L (135-145); Total Bilirubin 4.3 mg/dl (0.2-1.3); Total Protein 5.9 g/dl (6.3-8.2); eGFR 27.04
[2024-08-02 07:10] LABS: ALT (SGPT) 4586 U/L (0-50); AST (SGOT) > 7500 U/L (17-59)
--- NOTE | 2024-08-02 07:20 | PTCARENOTE ---
0630 pt became tachycardic 100-120s on monitor, BP elevated, then changed into afib rhythm. EKG obtained, purchasing buyer notified via TT. care ongoing.
[2024-08-02] MEDS: NSS (PRESERVATIVE FREE) 10 ML IV (07:39)
[2024-08-02] MEDS: SENOKOT-S 1 TABLET TUBE ×2 (07:40→19:16)
[2024-08-02] MEDS: PROTONIX IV 40 MG IV (07:40)
--- NOTE | 2024-08-02 08:13 | W.PN.CARDCBS ---
Today's Communication / Plan
-
He remains critically ill with MSOF (resp failure, CHF, liver failure, renal failure), shock, sepsis, lactic acidosis. He remains pressor dependent.
Continue hemodynamic support with IV pressors as needed for bp support.
Currently on Levophed and vasopressin with attempts to wean Levophed and then vasopressin
Possible decompensated heart failure with preserved ejection fraction presenting with rapid development of pulmonary edema
Poor urine output with attempted IV Lasix diuresis in the setting of acute kidney injury and rising creatinine
Receiving CRRT
Nephrology does not feel pt is in HF. Volume control as per renal.
Acute kidney injury likely related to hypotensive injury
Cr 08/02 2.7 from 2.8 on 08/01.
CRRT per renal
Off bicarb drip.
Marked hepatic injury with rising transaminases likely related to hypotensive injury
IV pressors for blood pressure support
Cont to monitor volume. CRRT as per renal.
Minimize hepatotoxic drugs
Persistent atrial fibrillation recently converted to sinus rhythm (this hospital stay) and now paroxysmal and back in AFib.
Cont IV Heparin anticoagulation for thromboembolic risk reduction (CHADSVASc = 2 with CHF, HTN) + higher thrombotic risk with malignancy
Eventual AV kalin nirav for rate control as BP tolerates however with pressor therapy would hold Toprol for now.
No amiodarone given hepatic injury
Sepsis Fever/Possible pneumonia
Broad-spectrum antibiotics as per ID.
ID following.
BC pending.
Discussed with ICU nursing and at bedside and primary service
Impression / Plan
-
.
Primary Advertising Sales Associate: Dr. Hiren Vicente
Impression:
MSOF (resp failure, CHF, liver failure, renal failure)
Hypotension requiring pressors
CHRISS (likely as a consequence of hypotension, possibly from septic shock versus cardiogenic shock or combination of both)
Acute hypoxic respiratory failure requiring intubation 07/31/24
Liver failure (likely as a consequence of hypotension, possibly from septic shock versus cardiogenic shock or combination of both)
Fever
Sepsis, s aureus PNA, possible S aureus bacteremia
Initial concern for flash pulm edema
Recent diagnosis paroxysmal atrial fibrillation with recurrent AFib with RVR
Colorectal cancer, suspected metastatic, diagnosed 06/22/2024, not yet started on therapy
Pulmonary nodule with concern for metastasis, scheduled for lung biopsy 08/03
Hypertension
Hyperlipidemia
Obstructive sleep apnea
Obesity
ECHO 07/31/24: Normal LV function. LVEF is 55-60%. No wall motion abnormality. Top normal right ventricular size with normal RV function. Mild AI and mild TR. Estimated pulmonary artery pressure of 38 mmHg
Plan:
He remains critically ill with MSOF (resp failure, CHF, liver failure, renal failure), shock, sepsis, lactic acidosis. He remains pressor dependent.
Continue hemodynamic support with IV pressors as needed for bp support.
Currently on Levophed and vasopressin with attempts to wean Levophed and then vasopressin
Possible decompensated heart failure with preserved ejection fraction presenting with rapid development of pulmonary edema
Poor urine output with attempted IV Lasix diuresis in the setting of acute kidney injury and rising creatinine
Receiving CRRT
Nephrology does not feel pt is in HF. Volume control as per renal.
Acute kidney injury likely related to hypotensive injury
Cr 08/02 2.7 from 2.8 on 08/01.
CRRT per renal
Off bicarb drip.
Marked hepatic injury with rising transaminases likely related to hypotensive injury
IV pressors for blood pressure support
Cont to monitor volume. CRRT as per renal.
Minimize hepatotoxic drugs
Persistent atrial fibrillation recently converted to sinus rhythm (this hospital stay) and now paroxysmal and back in AFib.
Cont IV Heparin anticoagulation for thromboembolic risk reduction (CHADSVASc = 2 with CHF, HTN) + higher thrombotic risk with malignancy
Eventual AV kalin nirav for rate control as BP tolerates however with pressor therapy would hold Toprol for now.
No amiodarone given hepatic injury
Sepsis Fever/Possible pneumonia
Broad-spectrum antibiotics as per ID.
ID following.
BC pending.
Discussed with ICU nursing and at bedside and primary service
Critical care time 45 min
HPI:
64-year-old man with recently diagnosed colorectal cancer with possible lung metastasis and recent diagnosis of atrial fibrillation who presented with lightheadedness and dizziness after starting oral metoprolol as an outpatient and presented to
[place] emergency department for further management. After being found to have CHRISS and anemia he was admitted for further management. Unfortunately developed increased work of breathing this morning, became tachycardic and was found to be
febrile. Did not clinically improve with BiPAP and he was subsequently intubated and transferred to the medical ICU for further management. Currently being treated with broad-spectrum antibiotics and requiring pressor support.
Seen in the outpatient cardiology office 07/26/24 and was in AF with a rapid ventricular rate of 130 bpm. At that visit he had yet to initiate Toprol-XL which was ordered by his primary care physician. At that office visit he agreed to initiate
Toprol-XL 25 mg daily for rate control with plan to defer recommendations regarding rhythm control until he was adequately anticoagulated (atrial fibrillation of unknown duration) and to allow for intermittent interruption of anticoagulation for
planned upcoming procedures regarding his recently diagnosed colorectal cancer with likely pulmonary metastases (bronchoscopy, port placement, colorectal surgery). Eliquis 5 mg twice daily was also initiated on 07/26/24..
Cardiology is consulted for possible heart failure as a cause of his respiratory decompensation. proBNP was mildly elevated (3210), it is possible there is some component of heart failure with preserved ejection fraction.
On presentation to the emergency department 07/30/24, he was in atrial fibrillation with reasonably controlled ventricular rate of 105 bpm. EKG of July 31, 2024 finds sinus rhythm at 77 bpm.
Progress Note - Advertising Sales Associate
Subjective
Date of Service: August 02, 2024
Pt seen and examined. No complaints. No chest pain or shortness of breath.
Objective
Labs:
08/02/24 06:00
08/02/24 06:00
Labs
Hgb 10.1 g/dL (13.0-18.0) L 08/02/24 06:00
Hct 32.0 % (39.0-52.0) L 08/02/24 06:00
Plt Count 118 10^3/uL (130-400) L 08/02/24 06:00
PT 19.2 Sec (11.4-14.6) H 07/31/24 17:56
INR 1.59 07/31/24 17:56
APTT 58.3 Sec (23.4-35.0) H 08/02/24 06:00
Sodium 134 mmol/L (135-145) L 08/02/24 06:00
Potassium 5.9 mmol/L (3.5-5.1) H 08/02/24 06:00
BUN 48 mg/dl (9-20) H 08/02/24 06:00
Creatinine 2.6 mg/dL (0.7-1.3) H 08/02/24 06:00
Glucose 67 mg/dl (70-99) L 08/02/24 06:00
Troponins
07/31/24 07/31/24 07/31/24
09:15 12:18 15:15
Troponin I Cancelled 0.796 H* Cancelled
07/31/24 07/31/24 08/01/24
17:56 21:15 03:51
Troponin I 0.749 H* Cancelled 0.536 H*
08/01/24
03:51
Troponin I 0.544 H*
Vital Signs and I&O:
Vital Signs
Temp Pulse Resp BP Pulse Ox
96.5 F L 122 16 101/33 98
08/02/24 04:12 08/02/24 07:30 08/02/24 07:30 08/01/24 19:48 08/02/24 08:00
Vital Signs
Temp Pulse Resp BP Pulse Ox
96.5 F L 122 16 101/33 98
08/02/24 04:12 08/02/24 07:30 08/02/24 07:30 08/01/24 19:48 08/02/24 08:00
Intake & Output
07/31/24 08/01/24 08/02/24 08/03/24
06:59 06:59 06:59 06:59
Intake Total 2801.1 / 3002.8 4670.9 / 4813.1 352.3 / 352.3
Output Total 317 / 325 2284 / 2380 187 / 187
Balance 2484.1 / 2677.8 2386.9 / 2433.1 165.3 / 165.3
Physical Exam
Physical Exam
General: sedated on vent
Neck: Negative JVD
Heart: Irregularly irregular, Negative S3 positive S1/S2, Negative S4, No murmur
Lungs: Negative wheezes/rales/rhonchi
Abd: Morbid obesity. Positive BS, NT/ND, neg rebound/rigidity/guarding
Ext: Negative cyanosis/clubbing/edema
Neuro: nonfocal
--- NOTE | 2024-08-02 08:27 | W.PN.INTV ---
Today's Communication / Plan
Recommendations
CRRT
Antibiotics per ID
Trend lactate
Mechanical ventilation; can try SAT/SBT tomorrow
Titrate FiO2 + PEEP to keep SpO2 >90-94%
Guarded prognosis at this time
Full Code
Assessment
-
Assessment: 64-year-old M with PMHx of colorectal cancer, HAN on CPAP, A fib on Eliquis and pulmonary nodule in RUL who p/w dizziness and lethargy x 1-2 days. Hypotensive in triage to 80s/40s, with heart rate 108, and saturating 100% on room air.
Initial temperature 97.6 �F. Initial labs showed Hb 9, sodium 132, creatinine 1.4, lactate 4, AST 98, ALT 115, ALP 230, and COVID-19 antigen negative. Patient given 1 L NS 0.9% in the ER and was admitted to telemetry with CHRISS. Earlier this
morning, he was increasingly tachypneic, hypoxic on room air to the mid 80s, placed onto nonrebreather with saturations improving to 92%, tachycardic with A-fib with RVR and hypertensive with a fever. Lower extremities and trunk became mottled and
rapid response called. Placed onto BiPAP with no improvement in saturations. Stat CXR done showing evidence of pulmonary edema. He was transferred to the ICU and attempted NIV with no success, and he was intubated emergently. [employer] Firer service
is now consulted for additional management/recommendations.
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
restrictive lung disease, external hemorrhoids, dyslipidemia, obesity, hypertension
Impression:
#Acute respiratory failure due to on mechanical ventilation as of 07/31/2024
#Shock state, due to sedation and sepsis
#CHRISS now on CRRT (stared 08/01/2024)
#Streptococcal bacteremia (via blood cultures on 07/31/2024)
#Acute cardiogenic pulmonary edema
#Acute HFpEF exacerbation
#Fever with MSSA pneumonia with septic shock
#Leukocytosis
#Anemia
#Metabolic acidosis with increased anion gap due to severe CHRISS and lactic acidosis
#Lactic acidosis
#Transaminitis with hyperbilirubinemia due to shock liver
#Elevated troponin likely due to demand ischemia with type II WI from shock state � peaked at 0.796 on 07/31/2024
#A-fib with RVR now in NSR/sinus bradycardia
#Metastatic colorectal cancer with suspected lung metastasis (diagnosed via colonoscopy on 06/22/2024 with partially obstructing tumor seen in the rectum 4 cm from the anal verge, invasive low-grade colorectal adenocarcinoma)
#PET avid 2.2 cm right upper lobe nodule originally planned for robotic bronchoscopy on 08/03/2024 (will be deferred for now)
#HAN on auto CPAP
#History of psoriasis previously on Enbrel
#History of hepatitis A
#History of COVID-19 (04/03)
#Restrictive lung disease (suspected based on spirometry from 05/15/2021, however patient was coughing during testing and post-bronchodilator FVC was WNL at 84% predicted
Plan:
- Continue mechanical ventilation with daily SAT/SBT if clinically indicated
- prn nebulized bronchodilators - not currently bronchospastic
- Continue aspiration precautions
- Titrate FiO2 + PEEP to maintain SpO2 >90-94%
- Maintain plateau pressure <30
- Now that he is on CRRT, no need to continue with diuresis; he had no ultrafiltration yesterday, but today we will try to remove some fluid as tolerated
- Replete electrolytes with K>4, Mg>2 while being diuresed
- Echo from 07/31/2024 showed normal biventricular function with normal RV function with top normal RV size, with mildly elevated PASP at 38 mmHg
- Cardiology consulted - recs appreciated
- Continue broad spectrum ABx with ancef s/p vancomycin (07/31-08/01/2024) and s/p cefepime (07/31-08/01/2024); MRSA swab negative and sputum Cx from 07/31/2024 grew MSSA
- Follow-up sets x2 of surveillance blood cultures from 08/01/2024
- Blood cultures from 07/31/2024 grew Streptococcus species (follow-up official species results and sensitivities)
- ID consulted - recs appreciated
- trend WBC and monitor fever curve; Tx with tylenol but keep <2g per 24 hrs given his transaminitis
- Continue vasopressors and maintain MAP>65, SBP>90
- Trend sHCO3; blood gas shows pH>7.3 so no need for bicarb drip; continue to trend pH and pCO2 with serial blood gases
- Trend lactate until <2 mmol/L
- Troponin peaked on 07/31/2024 at 0.796; no longer need to continue trending at this time
- Trend LFTs and T. bili
- Renally dose all meds/Abx
- Trend sCr, UOP and continue strict I/O
- Maintain euglycemia with goal BG 140-180 with q6hr ISS
- Trend H/H and transfuse if needed to keep Hb>7g/dL; keep plt>20k, unless there is concern for bleeding then keep plt>50k
- Start tube feeds with 5cc free water flush to minimize volume
- DVT ppx: Eliquis changed to heparin gtt now that he is on CRRT
Once patient is discharged (assuming that he survives this hospitalization), he will follow-up with us in the office again. He last saw us on 07/25/[address] Olguin.
Patient's , Adriana, as well as the patient's daughter were both updated at bedside and were both present during rounds. All questions were answered and emotional support was provided.
Critical care statement: A total of 41 minutes of critical care time was provided for this patient today. This includes management of unstable vital signs, evaluation of the patient at bedside, reviewing the patient's pertinent medical records
including radiographs, microbiology, laboratory evaluations, and discussion with primary team, consultants, pharmacy, nutrition, physical therapy, case management, charge nurse, critical care nursing, and respiratory therapy.
Data:
CXR 07/31/2024: Prominent markings suggesting combination of interstitial and to a lesser extent alveolar acute pulmonary edema.
CXR 08/01/2024: Findings concerning for progressed moderate pulmonary edema. Developing bibasilar pneumonia cannot be excluded.
Subjective Dataa
Subjective Data
Date of Service:
Date of Service: August 02, 2024
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
Subjective:
Seen and evaluated this AM. Went into rapid a fib this AM. Currently on levo at 10mcg/min and vaso .03 units/min; HR currently in 110s-120s (114); SpO2 99%. Remains intubated on AC/CMV 16/550/40%/8 with PIP: 20 cmH2O, VTe 514 cc and breathing at
20 breaths/min.. Now on CRRT since yesterday. Sedated on fentanyl at 100mcg/hr, and precedex at 1mcg/kg/hr. His A-fib spontaneously broke into sinus bradycardia this morning. Patient's and daughter both at bedside, and all questions were
answered.
Review of Systems
General: Unobtainable - Sedation
Objective Data
Data Reviewed
Vital Signs / I&O / Oxygen:
Vital Signs
Temp Pulse Resp BP Pulse Ox
96.1 F L 117 16 101/33 98
08/02/24 08:30 08/02/24 08:15 08/02/24 08:15 08/01/24 19:48 08/02/24 08:15
Intake and Output
08/01/24 08/02/24 08/03/24
06:59 06:59 06:59
Intake Total 2801.1 / 3002.8 4670.9 / 4813.1 352.3 / 352.3
Output Total 317 / 325 2284 / 2380 187 / 187
Balance 2484.1 / 2677.8 2386.9 / 2433.1 165.3 / 165.3
SaO2 [A/C] 98
SaO2 98
Physical Exam
General: Respiratory Distress (negative), Comfortable, Chills (negative), Sweats (negative) and Other (Patient intubated, sedated and on vasopressors)
HEENT: Normocephalic, Anicteric and Other (ETT in place)
Cardiovascular: S1-S2 and Peripheral Edema (Trace lower extremity edema bilaterally)
Respiratory: Wheeze (negative), Crackles (negative), Rhonchi (negative), Non-Labored Respirations, Stridor (negative) and ET Tube (Mechanical breath sounds heard bilaterally)
GI: Soft, Non Distended and Normal Bowel Sounds
Neurology: Tremors (negative), Other (Sedated) and Other (Pupils +1 mm bilaterally; intact corneal reflexes bilaterally)
Skin: Warm, Dry, Cyanosis (negative) and Jaundice (negative)
Labs/Micro/Reports
Lab Data
08/02/24 06:00
08/02/24 06:00
Laboratory Results
08/01/24 08/01/24 08/01/24
11:21 17:31 23:55
APTT 45.4 H 43.8 H 50.1 H
pH
pCO2
pO2
HCO3
O2 Delivery Level
08/02/24
06:00
APTT 58.3 H
pH 7.30 L
pCO2 29 L
pO2 147 H
HCO3 14.3 L*
O2 Delivery Level 40%
Microbiology
07/31/24 07:54 Blood/Venous Blood Culture - Preliminary
Streptococcus species
07/31/24 07:54 Blood/Venous Gram Stain - Preliminary
07/31/24 07:54 Blood/Venous Blood Culture - Preliminary
Streptococcus species
07/31/24 07:54 Blood/Venous Gram Stain - Final
07/31/24 12:18 Endotracheal Respiratory Culture - Final
S aureus-Methicillin Sensitive
07/31/24 12:18 Endotracheal Gram Stain - Final
07/31/24 11:49 Urine Legionella Urinary Antigen - Final
Negative for Legionella pneumophila Serogroup 1 antigen.
A negative result does not rule out the possiblity of
Legionella infection due to other serogroups or species of
Legionella. Clinical correlation is recommended.
07/31/24 11:49 Urine Streptococcus pneumoniae Antigen (M - Final
Negative for Streptococcus pneumoniae antigen.
A negative result does not exclude infection with
Streptococcus pneumoniae. Clinical correlation is
recommended.
07/31/24 12:18 Nose Nasal Screen MRSA (PCR) - Final
MRSA not detected - performed by PCR methodology.
07/31/24 08:10 Nasal Swab Influenza Types A & B (KHANG) - Final
Negative for Influenza A & B, NAAT
Negative results must be combined with clinical observations
and patient history.
Nucleic Acid Amplification test (NAAT)performed on the
[employer] platform.
--- NOTE | 2024-08-02 08:30 | PTCARENOTE ---
Received pt @ change of shift intubated/sedated w b/l soft limb restraints and 4 rails- see flow sheet. Drowsy, arouses to tactile stimuli, open opening <10 seconds; b/l pupils 2mm/sluggish. New uncontrolled afib w rates in 110-130's, starting @
0630 this AM; rhythm confirmed w EKG by overnight RN. BP stable on pressors, attempting to taper. Cardiology aware and to bedside this AM. +1 anasarca. Doppler pedal pulses. SpO2 98% on vent settings AC16/550/.40/+8. #8.0 ett, 25 lip on L side.
Scant clear secretions from ett; oral hygiene provided per protocol. Auscultated dim/coarse breath sounds. Hypoactive BS, abd soft/round/obese. OG tube secured @ 60cm; clamped for meds. Thermistor bourgeois in place; oliguric. R DL PICC w
dex/fent/levo/vaso/heparin gtts- see flow sheets. L midline patent, dressing c/d/i. R IJ HD cath w CRRT in progress per orders- see flow sheet. TT Nephrology regarding CRRT settings, awaiting response. R argenis Martins transduced, calibrated, and
zero'd; all ports patent and secured. LFT's also critically elevated this AM, Dr. Ball made aware. @ bedside, updated. Safe environment maintained.
--- NOTE | 2024-08-02 08:36 | W.PN.HOSP.TC ---
Today's Communication/Plan
-
see plan
Assessment / Plan
Assessment / Plan
Mr. Иван Redd is a 64-year-old man with a past medical history of recently diagnosed colorectal cancer, persistent atrial fibrillation, essential hypertension who presents to the ER with dizziness. Patient reports feeling unwell for the last
2 days. He was recently started on metoprolol and Eliquis for atrial fibrillation. Overnight admission patient developed flash pulmonary edema requiring transfer to the ICU, also with high fever.
CXR 07/31/24
IMPRESSION:
Prominent markings suggesting combination of interstitial and to a lesser extent alveolar acute pulmonary edema.
TTE 07/31/24
CONCLUSIONS
Normal left ventricular chamber size. Normal left ventricular systolic
function. Left ventricular ejection fraction is 55-60%. Normal regional wall
motion. Mild concentric left ventricular hypertrophy.
Top normal right ventricular size. Normal right ventricular systolic function.
Mild aortic regurgitation.
Mild tricuspid regurgitation. Estimated pulmonary artery pressure of 38 mmHg
assuming a right atrial pressure of 8mmHg.
No prior study for comparison
Indications:
flash pulmonary edema
RUQ US 07/31
FINDINGS:
Transabdominal grayscale ultrasound of the abdomen was obtained.
The liver is normal.
There is normal flow in the portal and hepatic veins
The spleen is normal.
There is cholelithiasis with a 5 mm gallstone layering in the dependent position.
There is no thickening of gallbladder wall
There is no pericholecystic edema
There is no dilatation of the common or intrahepatic ducts.
The common duct measures 5.3 mm.
The kidneys are normal in size contour and echogenicity bilaterally.
There is no hydronephrosis.
The pancreas, upper abdominal aorta and upper inferior vena cava are normal
There is small right pleural effusion
Acute Respiratory Failure requiring intubation
MSSA Bacteremia and Pneumonia
Septic Shock
Acute Renal Failure
Hyperkalemia
Lactic Acidosis
Non-Ischemic Myocardial Injury
-s/p intubation morning of 07/31 during rapid response
-initial concern for flash pulmonary edema given acute SOB, CXR read and patient had been receiving IVF. IV lasix given without significant output and worsening renal function; renal consulted and patient initiated on CRRT on 08/01 given worsening
renal function, essentially no urine output and hyperkalemia
-08/01: culture results showing MSSA in Sputum and Blood
-TTE results above - no vegetation
-continue IV Cefazolin per ID
-continue IV Levophed/ VAsopressin. Levophed weaning down
-sedation; SAT/SBT; vent management per Clinical Recruiter
-Trop peaked at 0.749
-Clinical Recruiter Consult appreciated
-Cardiology consult appreciated
-Nephrology consult appreciated
Worsening Normocytic Anemia
-No evidence of active bleeding
Colorectal Adenocarcinoma with possible lung mets
-Recently started chemotherapy and radiation
-Schedule for lung biopsy as outpatient
Persistent Atrial Fibrillation
-Eliquis changed to heparin gtt
-appreciate Cardiology
weaning down Levophed
Essential Hypertension
-hold CHICKEN VACCINATOR Olmesartan-HCTZ, Metoprolol
Hyperlipidemia
-Continue rosuvastatin
DVT proph: Eliquis
Code Status: Full Code
Total Critical Care Time 50 minutes. I was immediately available to the patient and staff. I personally examined, reviewed labs, diagnostic images/reports, interpretations, treatment plans, discussed patient care with other providers and family
or caregivers (if patient is unable to make decisions), entered orders as appropriate and documented the medical record.
Anticipated Discharge: > 48 hours
Subjective/Interval History
-
Date of Service: August 02, 2024
sedated, intubated
Objective Data
-
Labs:
Laboratory Results
08/01/24 08/01/24 08/02/24
22:13 23:55 02:00
WBC
Hgb
Hct
Plt Count
APTT 50.1 H
HCO3
Sodium 133 L 135
Potassium 6.5 H* 6.3 H*
Chloride 101 104
Carbon Dioxide 11 L* 12 L*
BUN 52 H 50 H
Creatinine 2.8 H 2.7 H
Glucose 81 74
Calcium 7.4 L 7.7 L
Total Bilirubin
AST
ALT
Alkaline Phosphatase
08/02/24 08/02/24
06:00 12:00
WBC 18.0 H
Hgb 10.1 L
Hct 32.0 L
Plt Count 118 L
APTT 58.3 H Pending
HCO3 14.3 L*
Sodium 134 L
Potassium 5.9 H
Chloride 102
Carbon Dioxide 14 L*
BUN 48 H
Creatinine 2.6 H
Glucose 67 L
Calcium 7.7 L
Total Bilirubin 4.3 H
AST > 7500 H*
ALT 4586 H*
Alkaline Phosphatase 274 H
Vital Signs:
Vital Signs
Temp Pulse Resp BP Pulse Ox
96.1 F L 117 16 101/33 98
08/02/24 08:30 08/02/24 08:15 08/02/24 08:15 08/01/24 19:48 08/02/24 08:15
I&O
08/01/24 08/02/24 08/03/24
06:59 06:59 06:59
Intake Total 2801.1 / 3002.8 4670.9 / 4813.1 352.3 / 352.3
Output Total 317 / 325 2284 / 2380 187 / 187
Balance 2484.1 / 2677.8 2386.9 / 2433.1 165.3 / 165.3
Review of Systems
-
Unable to obtain full review of systems at this time due to: Patient Intubation
History Source: Patient
Physical Exam
-
General: Intubated
HEENT: PERRLA
Respiratory: Negative Wheezes
Cardiac: Regular Rhythm and S1/S2
GI: Soft and Nontender
Musculoskeletal: No Edema
Skin: Warm and Dry; Negative Rash
Neuro: Sedated
Psych: Calm
Data Reviewed
-
Diagnostic Radiology: Report Reviewed by me
Labs: Labs Reviewed by me
--- NOTE | 2024-08-02 08:41 | W.PN.INTV ---
Today's Communication / Plan
Recommendations
Continue CRRT
Continue cefazolin,hold vancomycin
Cultures came back positive for MSSA-repeat cultures q48 until negative
Increase RR to 20 to help with the acidosis
Patient hypoglycemic-consider tube feedings
Assessment
-
Impression
Mr. Redd is a 64-year-old man, past medical history significant for recently diagnosed colorectal cancer in June,, persistent atrial fibrillation recently started on metoprolol and Eliquis, essential hypertension who presented to the
emergency department with a chief complaint of dizziness.
Plan was to admit for workup of anemia, condition worsened and patient ended up in ICU, requiring intubation, vasopressors and sedation
Currently patient's condition is critical, multiorgan failure including CHF, CHRISS, metabolic acidosis, respiratory failure, hypoxic liver
Condition explained to patient's
Plan to place central line and catheter for hemodialysis
Assessment
Critical condition with multiorgan involvement
Worsening renal function refractory to diuresis
Hyperkalemia
Metabolic acidosis
Mechanical intubation secondary to respiratory failure
Plan
#Critical condition with multiorgan involvement
As per cards, although normal ejection fraction, given drop by proBNP history of hypertension and past A-fib along with patient's clinical condition and chest x-ray findings it could be heart failure with preserved ejection fraction ECHO 07/31/24:
Normal LV function. LVEF is 55-60%. No wall motion abnormality. Top normal right ventricular size with normal RV function. Mild AI and mild TR. Estimated pulmonary artery pressure of 38 mmHg
Hypoxic liver-liver enzymes markedly elevated possibly due to poor perfusion
No past history of CKD, patient's creatinine jumped to 2.7, urine output poor, poorly responsive to diuretics, On CRRT
Acute respiratory failure, metabolic acidosis acidotic pH, on ventilator
Blood culture came back positive for (MSSA)-appreciate ID consult-S.Aureus Pneumonia and S.aureus bacteremia-continue cefazolin,hold vancomycin
Repeat blood cultures-q48 until negative
Family aware
#Acute respiratory failure requiring mechanical ventilation
Patient on mechanical ventilation due to acute respiratory failure
Vent settings include PEEP of 8, FiO2 40%, tidal volume 500 and respiratory rate of 16
ABGs show appropirate ventilation as per posada formula
Replace bicarb as needed-given volume overload, replace bicarb at slow rate
#Worsening renal function refractory to diuresis
Patient has no past medical history of chronic kidney disease, worsening renal function most likely acute secondary to the shock
Olmesartan and hydrochlorothiazide on hold
Creatinine 2.7, patient anuric
Nephro consult appreciated -continuous renal replacement therapy recommended by nephrology
Continue broad-spectrum antibiotics
Continue bicarb replacement
#Metabolic acidosis
Ph-7.3
Lactic acid 8, bicarb 14- appropirately being ventilated-No need of bicarb replacement as PH is above 7.2
continue to replace bicarb as able
# Anemia
Patient has no active source of bleeding
Iron studies normal
Hemoglobin increased from 9-10
Continue to monitor H&H
# Other medical condition
Colorectal adenocarcinoma with possible lung mets-recently started chemo and radiation/consult heme-onc
Persistent atrial fibrillation-continue Eliquis for anticoagulation and metoprolol for rate control
Essential hypertension-continue meds as able
Hyperlipidemia-continue rosuvastatin
# GI prophylaxis-pantoprazole 40 mg twice daily
#Maintain euglycemia with goal BG 140-180 with q6hr ISS
#Continue vasopressors-keep MAP>65
#replete electrolytes as needed,keep K>4 and MG>2
# DVT prophylaxis-Eliquis 5 mg twice daily
# CODE STATUS-full code
Subjective Dataa
Subjective Data
Date of Service:
Date of Service: August 02, 2024
Chief Complaint: Skein Inspector Follow Up, Pulmonary Follow Up and Vent Management Follow Up
Subjective:
condition critical
Intubated,sedated,on vasopressors and crrt
Levophed at 10mcg/min,fentanyl 100mcg/hr,Precedex 1mcg/kg/hr
Rapid afib at 6;30 with heart rate upto 130, currently heart rate in 100-110
high phosphate and potassium
Review of Systems
General: Unobtainable - Sedation
Objective Data
Data Reviewed
Vital Signs / I&O / Oxygen:
Vital Signs
Temp Pulse Resp BP Pulse Ox
96.1 F L 117 16 101/33 98
08/02/24 08:30 08/02/24 08:15 08/02/24 08:15 08/01/24 19:48 08/02/24 08:15
Intake and Output
08/01/24 08/02/24 08/03/24
06:59 06:59 06:59
Intake Total 2801.1 / 3002.8 4670.9 / 4813.1 352.3 / 352.3
Output Total 317 / 325 2284 / 2380 187 / 187
Balance 2484.1 / 2677.8 2386.9 / 2433.1 165.3 / 165.3
SaO2 [A/C] 98
SaO2 98
Physical Exam
General: Other (Patient intubated, sedated,on vasopressors and CRRT)
HEENT: Normocephalic and Anicteric
Cardiovascular: S1-S2, Regular Rhythm, Peripheral Edema and Other (tachycardia)
Respiratory: ET Tube (Mechanical breath sounds heard bilaterally,vent settings vt 500,peep8,rr16,fio2 40)
GI: Soft, Non Distended and Normal Bowel Sounds
Neurology: Other (Sedated) and Other (Pupils +1 mm bilaterally; minimally responsive)
Skin: Warm and Good Color
Labs/Micro/Reports
Lab Data
08/02/24 06:00
08/02/24 06:00
Laboratory Results
08/01/24 08/01/24 08/01/24
11:21 17:31 23:55
APTT 45.4 H 43.8 H 50.1 H
pH
pCO2
pO2
HCO3
O2 Delivery Level
08/02/24
06:00
APTT 58.3 H
pH 7.30 L
pCO2 29 L
pO2 147 H
HCO3 14.3 L*
O2 Delivery Level 40%
Microbiology
07/31/24 12:18 Endotracheal Respiratory Culture - Final
S aureus-Methicillin Sensitive
07/31/24 12:18 Endotracheal Gram Stain - Final
07/31/24 07:54 Blood/Venous Blood Culture - Preliminary
Positive culture in progress
07/31/24 07:54 Blood/Venous Gram Stain - Final
07/31/24 07:54 Blood/Venous Blood Culture - Preliminary
Positive culture in progress
07/31/24 07:54 Blood/Venous Gram Stain - Preliminary
07/31/24 11:49 Urine Legionella Urinary Antigen - Final
Negative for Legionella pneumophila Serogroup 1 antigen.
A negative result does not rule out the possiblity of
Legionella infection due to other serogroups or species of
Legionella. Clinical correlation is recommended.
07/31/24 11:49 Urine Streptococcus pneumoniae Antigen (M - Final
Negative for Streptococcus pneumoniae antigen.
A negative result does not exclude infection with
Streptococcus pneumoniae. Clinical correlation is
recommended.
07/31/24 12:18 Nose Nasal Screen MRSA (PCR) - Final
MRSA not detected - performed by PCR methodology.
07/31/24 08:10 Nasal Swab Influenza Types A & B (KHANG) - Final
Negative for Influenza A & B, NAAT
Negative results must be combined with clinical observations
and patient history.
Nucleic Acid Amplification test (NAAT)performed on the
[employer] platform.
[2024-08-02] MEDS: SUBLIMAZE 50 MCG IV ×4 (08:54→22:20)
--- NOTE | 2024-08-02 09:01 | W.PN.ID1 ---
Date of Service
Date of Service: August 02, 2024
Today's Communication
- c/w cefazolin - dosed for CRRT - dosing reviewed with clinical pharmacy
- blood isolate strep, stopped vancomycin
Assessment / Plan
S aureus Pneumonia
Strep bacteremia - await final ID
CHRISS on CRRT
Class III Obesity
Colorectal Adenocarcinoma - not yet on treatment
Psoriatic Arthritis - currently off of Enbrel since ~05/03
- initial blood cultures x2 at the same time with strep - follow for final ID
- Repeat blood cultures in progress no growth to date; continue to repeat q48 hrs until persistently clear
- MSSA from sputum
- TTE on 07/31 without vegetations - may consider repeat if bacteremia is persistent
- c/w cefazolin - dosed for CRRT - dosing reviewed with clinical pharmacy
- blood isolate strep, stopped vancomycin
follow pressor requirements, blood cultures, cbc etc. Patient remains critically ill with notable interval improvement
Chief Complaint
-: Pneumonia (S aureus) and Bacteremia (streptococcus)
Subjective / Review of Systems
now hypothermic, fevers resolved
further improved pressor requirements, norepi down to 10 mcg/min, phenylephrine off, vasopressin remains on
tachycardia this am - afib
scant clear secretions from ETT
remains anuric
Vital Signs / Physical Exam
Vital Signs
Vital Signs
Temp Pulse Resp BP Pulse Ox
96.1 F L 117 16 101/33 98
08/02/24 08:30 08/02/24 08:15 08/02/24 08:15 08/01/24 19:48 08/02/24 08:15
Physical Exam
Constitutional: No Acute Distress and Acutely Ill
Cardiovascular: Regular Rate and S1/S2; Negative Murmur or Rub
Pulmonary: Clear and Symmetric; Negative Wheezes or Rales
Gastrointestinal: Soft, Non Tender, Non Distended and Normal Bowel Sounds
Skin: Warm and Dry; Negative Rash or Jaundice
Neurological: Negative Awake (sedated)
Lines: HD Cath (- no erythema, warmth, tenderness, drainage ) and Other (PICC, Midline, mike - no erythema, warmth, tenderness, drainage )
Objective Data
Lab Data
Lab Results
08/02/24 06:00
08/02/24 06:00
PT 19.2 Sec (11.4-14.6) H 07/31/24 17:56
INR 1.59 07/31/24 17:56
APTT 58.3 Sec (23.4-35.0) H 08/02/24 06:00
Estimated Creat Clear 41 ml/min 08/02/24 06:00
Lactic Acid 8.0 mmol/L (0.7-2.0) H* 08/02/24 06:00
Total Bilirubin 4.3 mg/dl (0.2-1.3) H 08/02/24 06:00
AST > 7500 U/L (17-59) H* 08/02/24 06:00
ALT 4586 U/L (0-50) H* 08/02/24 06:00
Alkaline Phosphatase 274 U/L (38-126) H 08/02/24 06:00
Most recent labs reviewed.
Micro Results:
07/31/24 07:54 Blood Culture - Preliminary
Blood/Venous Streptococcus species
Gram Stain - Preliminary
07/31/24 07:54 Blood Culture - Preliminary
Blood/Venous Streptococcus species
Gram Stain - Final
07/31/24 12:18 Respiratory Culture - Final
Endotracheal S aureus-Methicillin Sensitive
Gram Stain - Final
08/01/24 18:19 Blood Culture - Pending
Blood/Venous
08/01/24 15:36 Blood Culture - Pending
Blood/Venous
07/31/24 11:49 Legionella Urinary Antigen - Final
Urine Negative for Legionella pneumophila Serogroup 1 antigen.
A negative result does not rule out the possiblity of
Legionella infection due to other serogroups or species of
Legionella. Clinical correlation is recommended.
Streptococcus pneumoniae Antigen (M - Final
Negative for Streptococcus pneumoniae antigen.
A negative result does not exclude infection with
Streptococcus pneumoniae. Clinical correlation is
recommended.
07/31/24 12:18 Nasal Screen MRSA (PCR) - Final
Nose MRSA not detected - performed by PCR methodology.
07/31/24 08:10 Influenza Types A & B (KHANG) - Final
Nasal Swab Negative for Influenza A & B, NAAT
Negative results must be combined with clinical observations
and patient history.
Nucleic Acid Amplification test (NAAT)performed on the
[employer] platform.
--- NOTE | 2024-08-02 10:00 | PTCARENOTE ---
pt.s cardiac rhythm back in SR-SB w rates high 50's-60's @ approx 0945. Attempt to wean down levo unsuccessful- see flow sheet. Diastolic blood pressure running low in 20-40's; pressors titrated based on SBP per orders. Remote Control Assembler made aware
during rounds.
--- NOTE | 2024-08-02 10:16 | W.PN.NEPH.PH ---
Today's Communication / Plan
-
Continue CRRT
Assessment/Plan
-
64-year-old man with recently diagnosed colorectal cancer with possible lung metastasis and recent diagnosis of atrial fibrillation who presented with lightheadedness and dizziness after starting oral metoprolol as an outpatient and presented to
[facility] emergency department. He presented in acute kidney injury admitted to the floors upgraded to the ICU for increased work of breathing ultimately intubated in the ICU with hyperkalemia.
Patient is critically ill on pressor support essentially anuric.
Positive blood cultures pending organism. Staph aureus sputum culture.
Renal consult for acute kidney injury and hyperkalemia
Impression.
Acute kidney injury and hyperkalemia secondary to septic shock.
Colorectal cancer newly diagnosed June 2024 with possible lung metastasis
Atrial fibrillation on oral anticoagulation
Mechanical ventilation.
Bacteremia.
Plan.
Patient is essentially anuric with no obvious signs of heart failure. Echocardiogram reviewed this is presenting as septic shock with lactic acidosis on 2 pressors.
Urinalysis no protein or hematuria
Continue renal replacement therapy in the form of CRRT with prescription adjustment
Discussed this with critical care team will place dialysis orders.
was present at bedside agrees with the plan.
Broad-spectrum antibiotics.
Will start to do ultrafiltration
-
-
Date of Service: August 02, 2024
CC / HPI / ROS
-
Chief Complaint:
Septic shock
History of Present Illness:
Presents to the ICU with respiratory distress septic shock mechanical ventilation pressor support requiring renal placement therapy for acute kidney
Review of Systems:.
Unobtainable
Labs
-
Labs:
WBC 18.0 10^3/uL (4.8-10.8) H 08/02/24 06:00
RBC 3.77 10^6/uL (4.70-6.10) L 08/02/24 06:00
Hgb 10.1 g/dL (13.0-18.0) L 08/02/24 06:00
Hct 32.0 % (39.0-52.0) L 08/02/24 06:00
Plt Count 118 10^3/uL (130-400) L 08/02/24 06:00
eGFR 27.04 08/02/24 06:00
Dyl-R-Ghmjolgotep Pept 3210 pg/ml 07/31/24 07:54
Albumin 2.6 g/dl (3.5-5.0) L 08/02/24 06:00
Physical Exam
-
Vital Signs:
Vital Signs
Temp Pulse Resp BP Pulse Ox
96.1 F L 117 16 101/33 99
08/02/24 08:30 08/02/24 08:15 08/02/24 08:15 08/01/24 19:48 08/02/24 09:45
Respiratory:: Bilateral: Coarse
Abdomen:: Soft
Bowel Sounds:: Normal
Extremity Edema:: +1: Bilateral:
Alvarez Catheter: Yes
--- NOTE | 2024-08-02 10:19 | W.PN.NEPH.HD ---
Assessment
-
Seen on FINANCIAL MANAGEMENT
tolerating CRRT. Changed to 0 potassium with ultrafiltration 100/h with a goal of 200
Progress Note - Hemodialysis
-
Date of Service: August 02, 2024
[2024-08-02 10:20] LABS: Ionized Calcium 1.03 mMOL/L (1.15-1.33)
[2024-08-02 10:31] LABS: Blood Urea Nitrogen 45 mg/dl (9-20); Calcium 7.3 mg/dl (8.4-10.2); Carbon Dioxide 19 mmol/L (22-30); Chloride 101 mmol/L (98-107); Estimated Creatinine Clearance 40 ml/min; Glucose 106 mg/dl (70-99); Phosphorus 7.9 mg/dl (2.5-4.5); Potassium 5.3 mmol/L (3.5-5.1); Sodium 136 mmol/L (135-145); eGFR 25.84
[2024-08-02] MEDS: SUBLIMAZE 100 IV ×2 (10:42→20:19)
[2024-08-02] MEDS: RFP-402 HD Soln (K+ 0 mEq/L) 15000 ML CRRT-IRR (11:28)
[2024-08-02 11:53] LABS: Glucose - Point of Care 87 mg/dl (70-99)
[2024-08-02 12:21] LABS: PCO2 22 mmHg (35-48); PO2 198 mmHg (83-108); pH 7.39 (7.35-7.45)
[2024-08-02 12:23] LABS: HCO3 13.3 mmol/L (21-28)
--- NOTE | 2024-08-02 12:53 | PTCARENOTE ---
Nephrology, Dr. Gold, to bedside this AM; CRRT settings adjusted on orders and carried out. Dialysate bags changed to 0 k+ and machine running negative per orders- see flow sheet. Vent settings changed per Junior Administrative Assistant; s/p vent changes ABG
drawn and sent to lab; bicarb critically low on ABG; results reviewed by Dr. Ball. During round discussed potential SAT/SBT; per MD, Dr. Ball, hold on SAT/SBT today d/t hemodynamic instability and mx order changes further challenging
hemodynamic stability. Remains on dex/fent/levo/vaso/heparin gtts. Repositioned per protocol. and daughter remain @ bedside. Safe environment maintained.
--- NOTE | 2024-08-02 13:46 | CM ---
CM following re: discharge planning.
Discussed in rounds, reviewed pt's chart, met with pt and family at bedside.
Per rounds meeting, pt remains intubated, continue supportive care.
D/C plan: uncertain at this time and will depend on pt's progress.
CM will follow with discharge plan updates as hospitalization progresses
[2024-08-02 15:23] LABS: APTT 79.4 Sec (23.4-35.0)
[2024-08-02 15:33] LABS: Ionized Calcium 0.91 mMOL/L (1.15-1.33)
[2024-08-02 15:46] LABS: Lactic Acid 5.7 mmol/L (0.7-2.0)
[2024-08-02 15:51] LABS: Blood Urea Nitrogen 45 mg/dl (9-20); Calcium 7.3 mg/dl (8.4-10.2); Carbon Dioxide 14 mmol/L (22-30); Chloride 103 mmol/L (98-107); Estimated Creatinine Clearance 47 ml/min; Glucose 100 mg/dl (70-99); Phosphorus 6.3 mg/dl (2.5-4.5); Potassium 4.8 mmol/L (3.5-5.1); Sodium 133 mmol/L (135-145); eGFR 31.32
--- NOTE | 2024-08-02 17:00 | PTCARENOTE ---
Pt. noted to have eye/muscle twitching upon repositioning. Self resolved. Ca+ rider infusing- see MAR. Dr. Ball made aware. Otherwise assessment remains unchanged from previous. CRRT remains infusing per orders. Dex/fent/levo/vaso/heparin
gtts remain infusing via R DL PICC- see flow sheets. remains @ bedside, updated. Safe environment maintained.
[2024-08-02 17:59] LABS: Glucose - Point of Care 85 mg/dl (70-99)
[2024-08-02] MEDS: NSS (PRESERVATIVE FREE) 0.5 ML IV (19:16)
[2024-08-02] MEDS: ATIVAN 1 MG IV (19:17)
--- NOTE | 2024-08-02 19:54 | PTCARENOTE ---
rec'd patient from dayshift. at bedside, updated on plan of care overnight, she is heading home at this time to sleep. assessment as documented. pt arouses to tactile stimuli, RASS -2. b/l soft wrist restraints in place. SB on monitor, PVCs
noted, in and out of vent bigeminy. SBP goal >90, levo (dbl concentrated)/vaso gtts infusing. arterial line leveled and zeroed. afebrile. + DP pulses w/ doppler. #8 ETT, 25 at lip. AC 20/550/5/40%. diminished breath sounds noted. oral care provided.
hypoactive bowel sounds, OGT flushed, TF infusing. bourgeois for I+Os, pt with minimal UOP. CRRT running, 2K bath, TFR 2.0, BFR 300, running neg 100ml/hr. labs due at 1999. precedex/fent/heparin gtts continue. writer editor at bedside at shift change,
stat dose ativan given for eye and muscle twitching, see MAR. care ongoing.
--- NOTE | 2024-08-02 20:10 | PTCARENOTE ---
pt began coughing, vent alarming for high pressure, sxn provided with thick edouard secretions cleared, pt then had rhythm change into afib on monitor with HR 100-120s. ICU POLISHER BALANCE SCREWHEAD at bedside and aware.
[2024-08-02 20:21] LABS: Ionized Calcium 0.93 mMOL/L (1.15-1.33)
[2024-08-02 20:34] LABS: APTT 107.8 Sec (23.4-35.0)
[2024-08-02 20:38] LABS: Lactic Acid 5.8 mmol/L (0.7-2.0)
[2024-08-02 20:47] LABS: Blood Urea Nitrogen 44 mg/dl (9-20); Calcium 7.4 mg/dl (8.4-10.2); Carbon Dioxide 17 mmol/L (22-30); Chloride 101 mmol/L (98-107); Estimated Creatinine Clearance 47 ml/min; Glucose 102 mg/dl (70-99); Potassium 4.6 mmol/L (3.5-5.1); Sodium 132 mmol/L (135-145); eGFR 31.32
[2024-08-02] MEDS: CALCIUM GLUCONATE 10% INJECTION 120 MG IV (21:11)
[2024-08-02] MEDS: CRESTOR 10 MG TUBE (21:18)
--- NOTE | 2024-08-02 23:30 | PTCARENOTE ---
pt became hypotensive while turning, SBP in 50s, levo currently gtt maxed out at 30mcg. repeat labs sent. TF rate increased. otherwise assessment unchanged.
[2024-08-02 23:31] LABS: Glucose - Point of Care 99 mg/dl (70-99)
[2024-08-02 23:33] LABS: Ionized Calcium 0.95 mMOL/L (1.15-1.33)
[2024-08-02 23:46] LABS: Blood Urea Nitrogen 42 mg/dl (9-20); Calcium 7.2 mg/dl (8.4-10.2); Carbon Dioxide 16 mmol/L (22-30); Chloride 101 mmol/L (98-107); Estimated Creatinine Clearance 49 ml/min; Glucose 105 mg/dl (70-99); Phosphorus 5.3 mg/dl (2.5-4.5); Potassium 4.3 mmol/L (3.5-5.1); Sodium 131 mmol/L (135-145); eGFR 33.04
[2024-08-02 23:56] LABS: Lactic Acid 4.8 mmol/L (0.7-2.0)
[2024-08-03] VITALS (11 sets, daily range): BP systolic 77–150; BP diastolic 41–50; BMI 42.0
[2024-08-03] MEDS: RFP-400 HD Soln (K+ 2 mEq/L) 15000 ML CRRT-IRR ×4 (00:12→18:05)
[2024-08-03] MEDS: CALCIUM GLUCONATE 10% INJECTION 120 MG IV ×4 (01:08→15:01)
[2024-08-03] MEDS: LEVOPHED 258 MG IV ×4 (03:33→18:03)
[2024-08-03] MEDS: SUBLIMAZE 50 MCG IV ×4 (04:00→20:48)
[2024-08-03 04:03] LABS: B.E. -4.2 mmol/L; HCO3 18.5 mmol/L (21-28); Ionized Calcium 1.03 mMOL/L (1.15-1.33); O2 Saturation % 98.9 % (94-98); PCO2 26 mmHg (35-48); PO2 104 mmHg (83-108); pH 7.46 (7.35-7.45)
[2024-08-03] MEDS: PRECEDEX 100 IV ×4 (04:08→20:22)
[2024-08-03] MEDS: HEPARIN 25000 UNITS/250 ML IV (04:08)
[2024-08-03 04:10] LABS: Hematocrit 32.6 % (39.0-52.0); Hemoglobin 10.9 g/dL (13.0-18.0); Mean Corp Hgb Conc. 33.4 g/dL (33.0-37.0); Mean Corpuscular Hgb 26.7 pg (27.0-31.0); Mean Corpuscular Volume 79.7 fL (80.0-94.0); Mean Platelet Volume 10.2 fL (7.4-10.4); Platelet Count 158 10^3/uL (130-400); Red Blood Cell Count 4.09 10^6/uL (4.70-6.10); Red Cell Dist. Width 15.3 % (11.5-14.5)
[2024-08-03 04:14] LABS: O2 Therapy 40%
[2024-08-03 04:31] LABS: Lactic Acid 3.9 mmol/L (0.7-2.0)
[2024-08-03 04:36] LABS: APTT 162.7 Sec (23.4-35.0)
[2024-08-03 04:37] LABS: Albumin 2.5 g/dl (3.5-5.0); Alkaline Phosphatase 350 U/L (38-126); Blood Urea Nitrogen 41 mg/dl (9-20); Calcium 7.4 mg/dl (8.4-10.2); Carbon Dioxide 18 mmol/L (22-30); Chloride 101 mmol/L (98-107); Direct Bilirubin 3.7 mg/dl (0.0-0.4); Estimated Creatinine Clearance 51 ml/min; Glucose 109 mg/dl (70-99); Phosphorus 4.7 mg/dl (2.5-4.5); Potassium 4.1 mmol/L (3.5-5.1); Sodium 133 mmol/L (135-145); Total Bilirubin 5.2 mg/dl (0.2-1.3); Total Protein 5.9 g/dl (6.3-8.2); Triglycerides 173 mg/dl (10-149); eGFR 34.93
[2024-08-03 04:58] LABS: ALT (SGPT) 2924 U/L (0-50)
[2024-08-03] MEDS: ANCEF 5 IV (05:09)
--- NOTE | 2024-08-03 05:13 | PTCARENOTE ---
CRRT cartridge changed, up and running again at 0500. AM labs sent. BC x2 sent. SBP labile, titrating levo to maintain SBP goal >90. TF rate increased. care ongoing.
[2024-08-03] MEDS: NOVOLOG FLEXPEN-MODERATE RESISTANCE SC ×2 (05:20→11:45)
[2024-08-03] MEDS: SUBLIMAZE 100 IV ×2 (05:30→14:59)
[2024-08-03 05:31] LABS: AST (SGOT) 5001 U/L (17-59)
[2024-08-03] MEDS: PROTONIX IV 40 MG IV (07:23)
[2024-08-03] MEDS: NSS (PRESERVATIVE FREE) 10 ML IV (07:23)
[2024-08-03] MEDS: SENOKOT-S TUBE ×2 (07:24→20:52)
[2024-08-03] MEDS: NEO-SYNEPHRINE 1% 260 MG IV (07:25)
[2024-08-03] MEDS: PITRESSIN 100 IV ×2 (08:07→18:03)
[2024-08-03 08:16] LABS: Ionized Calcium 0.97 mMOL/L (1.15-1.33)
[2024-08-03 08:21] LABS: Lactic Acid 3.2 mmol/L (0.7-2.0)
[2024-08-03 08:23] LABS: Blood Urea Nitrogen 39 mg/dl (9-20); Calcium 7.2 mg/dl (8.4-10.2); Carbon Dioxide 20 mmol/L (22-30); Chloride 103 mmol/L (98-107); Estimated Creatinine Clearance 49 ml/min; Glucose 126 mg/dl (70-99); Magnesium 1.9 mg/dl (1.6-2.3); Phosphorus 4.1 mg/dl (2.5-4.5); Sodium 134 mmol/L (135-145); eGFR 33.04
--- NOTE | 2024-08-03 08:24 | W.PN.NEPH.PH ---
Today's Communication / Plan
-
CRRT
Assessment/Plan
-
64-year-old man with recently diagnosed colorectal cancer with possible lung metastasis and recent diagnosis of atrial fibrillation who presented with lightheadedness and dizziness after starting oral metoprolol as an outpatient and presented to
[facility] emergency department. He presented in acute kidney injury admitted to the floors upgraded to the ICU for increased work of breathing ultimately intubated in the ICU with hyperkalemia.
Patient is critically ill on pressor support essentially anuric.
Positive blood cultures pending organism. Staph aureus sputum culture.
Renal consult for acute kidney injury and hyperkalemia
Impression.
Acute kidney injury and hyperkalemia secondary to septic shock.
Colorectal cancer newly diagnosed June 2024 with possible lung metastasis
Atrial fibrillation on oral anticoagulation
Mechanical ventilation.
Bacteremia.
Plan.
continue CRRT
net UF 100ml/hr
all indices would suggest that he has made some improvement
follow lactate
wean pressors as allowed
critical care time 31 minutes
-
-
Date of Service: August 03, 2024
CC / HPI / ROS
-
Chief Complaint:
Septic shock
History of Present Illness:
critically ill in ICU on vent/pressors
BP stable
CRRT running with net negative I/O
K controlled
LFTs improving
Lactate improving
weights up however
Review of Systems:.
sedated on vent
Labs
-
Labs:
WBC 17.0 10^3/uL (4.8-10.8) H 08/03/24 03:41
RBC 4.09 10^6/uL (4.70-6.10) L 08/03/24 03:41
Hgb 10.9 g/dL (13.0-18.0) L 08/03/24 03:41
Hct 32.6 % (39.0-52.0) L 08/03/24 03:41
Plt Count 158 10^3/uL (130-400) D 08/03/24 03:41
Sodium 134 mmol/L (135-145) L 08/03/24 07:57
Potassium 4.0 mmol/L (3.5-5.1) 08/03/24 07:57
Chloride 103 mmol/L (98-107) 08/03/24 07:57
Carbon Dioxide 20 mmol/L (22-30) L 08/03/24 07:57
BUN 39 mg/dl (9-20) H 08/03/24 07:57
Creatinine 2.2 mg/dL (0.7-1.3) H 08/03/24 07:57
eGFR 33.04 08/03/24 07:57
Glucose 126 mg/dl (70-99) H 08/03/24 07:57
Calcium 7.2 mg/dl (8.4-10.2) L 08/03/24 07:57
Phosphorus 4.1 mg/dl (2.5-4.5) 08/03/24 07:57
Uqm-J-Btdwdslokab Pept 3210 pg/ml 07/31/24 07:54
Albumin 2.5 g/dl (3.5-5.0) L 08/03/24 03:41
Physical Exam
-
Vital Signs:
Vital Signs
Temp Pulse Resp BP Pulse Ox
97.4 F 121 20 114/41 99
08/03/24 07:10 08/03/24 08:00 08/03/24 08:00 08/03/24 00:00 08/03/24 08:00
Cardiovascular:: Regular rate and rhythm
Respiratory:: Bilateral: Coarse
Lung Excursion:: Normal
Abdomen:: Nontender and Soft
Bowel Sounds:: Normal
Extremity Edema:: +1: Bilateral:
--- NOTE | 2024-08-03 08:25 | W.PN.HOSP.TC ---
Today's Communication/Plan
-
see plan
Assessment / Plan
Assessment / Plan
Mr. Иван Redd is a 64-year-old man with a past medical history of recently diagnosed colorectal cancer, persistent atrial fibrillation, essential hypertension who presents to the ER with dizziness. Patient reports feeling unwell for the last
2 days. He was recently started on metoprolol and Eliquis for atrial fibrillation. Overnight admission patient developed acute respiratory failure in setting of high fever with finding MSSA in blood and sputum; development of renal failure
requiring CRRT.
CXR 07/31/24
IMPRESSION:
Prominent markings suggesting combination of interstitial and to a lesser extent alveolar acute pulmonary edema.
TTE 07/31/24
CONCLUSIONS
Normal left ventricular chamber size. Normal left ventricular systolic
function. Left ventricular ejection fraction is 55-60%. Normal regional wall
motion. Mild concentric left ventricular hypertrophy.
Top normal right ventricular size. Normal right ventricular systolic function.
Mild aortic regurgitation.
Mild tricuspid regurgitation. Estimated pulmonary artery pressure of 38 mmHg
assuming a right atrial pressure of 8mmHg.
No prior study for comparison
Indications:
flash pulmonary edema
RUQ US 07/31
FINDINGS:
Transabdominal grayscale ultrasound of the abdomen was obtained.
The liver is normal.
There is normal flow in the portal and hepatic veins
The spleen is normal.
There is cholelithiasis with a 5 mm gallstone layering in the dependent position.
There is no thickening of gallbladder wall
There is no pericholecystic edema
There is no dilatation of the common or intrahepatic ducts.
The common duct measures 5.3 mm.
The kidneys are normal in size contour and echogenicity bilaterally.
There is no hydronephrosis.
The pancreas, upper abdominal aorta and upper inferior vena cava are normal
There is small right pleural effusion
Acute Respiratory Failure requiring intubation
MSSA Bacteremia and Pneumonia
Septic Shock
Acute Renal Failure
Hyperkalemia
Lactic Acidosis
Non-Ischemic Myocardial Injury
-s/p intubation morning of 07/31 during rapid response
-initial concern for flash pulmonary edema given acute SOB, CXR read and patient had been receiving IVF. IV lasix given without significant output and worsening renal function; renal consulted and patient initiated on CRRT on 08/01 given worsening
renal function, essentially no urine output and hyperkalemia
-08/01: culture results showing MSSA in Sputum and Blood
-TTE results above - no vegetation
-continue IV Cefazolin per ID
-continue IV Levophed/ VAsopressin. Phenylephrine added on 08/02/24
-sedation; SAT/SBT; vent management per Infertility Nurse
-Trop peaked at 0.749
-Infertility Nurse Consult appreciated
-Cardiology consult appreciated
-Nephrology consult appreciated
Worsening Normocytic Anemia
-No evidence of active bleeding
Colorectal Adenocarcinoma with possible lung mets
-Schedule for lung biopsy as outpatient
-patient had not yet started chemothearpy per
Persistent Atrial Fibrillation
-Eliquis changed to heparin gtt
-appreciate Cardiology
weaning down Levophed
Essential Hypertension
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
Hyperlipidemia
-Continue rosuvastatin
DVT proph: Eliquis
Code Status: Full Code
Total Critical Care Time 50 minutes. I was immediately available to the patient and staff. I personally examined, reviewed labs, diagnostic images/reports, interpretations, treatment plans, discussed patient care with other providers and family
or caregivers (if patient is unable to make decisions), entered orders as appropriate and documented the medical record.
Anticipated Discharge: > 48 hours
Subjective/Interval History
-
Date of Service: August 03, 2024
sedated, intubated
Objective Data
-
Labs:
Laboratory Results
08/02/24 08/02/24 08/03/24
20:15 23:23 03:41
WBC 17.0 H
Hgb 10.9 L
Hct 32.6 L
Plt Count 158 D
APTT 107.8 H 162.7 H*
HCO3 18.5 L
Sodium 132 L 131 L 133 L
Potassium 4.6 4.3 4.1
Chloride 101 101 101
Carbon Dioxide 17 L 16 L 18 L
BUN 44 H 42 H 41 H
Creatinine 2.3 H 2.2 H 2.1 H
Glucose 102 H 105 H 109 H
Calcium 7.4 L 7.2 L 7.4 L
Total Bilirubin 5.2 H
AST 5001 H*
ALT 2924 H*
Alkaline Phosphatase 350 H
08/03/24 08/03/24 08/03/24
06:00 07:57 11:30
WBC
Hgb
Hct
Plt Count
APTT Pending
HCO3 Cancelled
Sodium 134 L
Potassium 4.0
Chloride 103
Carbon Dioxide 20 L
BUN 39 H
Creatinine 2.2 H
Glucose 126 H
Calcium 7.2 L
Total Bilirubin
AST
ALT
Alkaline Phosphatase
Vital Signs:
Vital Signs
Temp Pulse Resp BP Pulse Ox
97.4 F 121 20 114/41 99
08/03/24 07:10 08/03/24 08:00 08/03/24 08:00 08/03/24 00:00 08/03/24 08:00
I&O
08/02/24 08/03/24 08/04/24
06:59 06:59 06:59
Intake Total 4670.9 / 4813.1 3477.7 / 3678.6 348.9 / 348.9
Output Total 2284 / 2380 4427 / 4726 532 / 532
Balance 2386.9 / 2433.1 -949.3 / -1047.4 -183.1 / -183.1
Review of Systems
-
History Source: Patient
All other systems: Reviewed and negative
Physical Exam
-
General: Intubated
HEENT: PERRLA
Respiratory: Negative Wheezes
Cardiac: Regular Rhythm and S1/S2
GI: Soft and Nontender
Musculoskeletal: No Edema
Skin: Warm and Dry; Negative Rash
Neuro: Sedated
Psych: Calm
Data Reviewed
-
Diagnostic Radiology: Report Reviewed by me
Labs: Labs Reviewed by me
--- NOTE | 2024-08-03 08:25 | PTCARENOTE ---
pt received from previous rn- ett to vent, see settings as charted. pt sinus tach on monitor, right radial mike zeroed and functioning. pt remains on fent and precedex for sedation- opens eyes to name, attempts to wiggle fingers, no further
commands followed. pt remains on heparin gtt as per order. levo, vaso continue and brandi started for systolics in 60s. right ij diaylsis cath c/d/i. right picc c/d/i, left midline c/d/i. plan of care discussed with mds- Dr. Silva aware of increase in
pressors. pt continues on crrt- see flowsheet. labs sent. all safety precautions in place.
--- NOTE | 2024-08-03 08:26 | W.PN.INTV ---
Today's Communication / Plan
Recommendations
Continue CRRT
Continue to trend creatinine, lactic acid, bicarb, liver enzymes, TLC count
Blood cultures -if remain negative for next 48 hours-can stop repeating
Patient is anuric-make family aware of consistent need of dialysis in future
Keep MAP greater than 65
Keep potassium greater than 4 and magnesium greater than 2
Trend ABGs-decrease respiratory rate
Assessment
-
Impression
Mr. Redd is a 64-year-old man, past medical history significant for recently diagnosed colorectal cancer in June,, persistent atrial fibrillation recently started on metoprolol and Eliquis, essential hypertension who presented to the
emergency department with a chief complaint of dizziness.
Plan was to admit for workup of anemia, condition worsened and patient ended up in ICU, requiring intubation, vasopressors and sedation
Currently patient's condition is critical, multiorgan failure including CHF, CHRISS, metabolic acidosis, respiratory failure, hypoxic liver
Condition explained to patient's
Plan to place central line and catheter for hemodialysis
Assessment
Critical condition with multiorgan involvement
Worsening renal function refractory to diuresis
Hyperkalemia
Metabolic acidosis
Mechanical intubation secondary to respiratory failure
Plan
#Critical condition with multiorgan involvement
As per cards, although normal ejection fraction, given drop by proBNP history of hypertension and past A-fib along with patient's clinical condition and chest x-ray findings it could be heart failure with preserved ejection fraction ECHO 07/31/24:
Normal LV function. LVEF is 55-60%. No wall motion abnormality. Top normal right ventricular size with normal RV function. Mild AI and mild TR. Estimated pulmonary artery pressure of 38 mmHg
Hypoxic liver-liver enzymes markedly elevated possibly due to poor perfusion-liver enzymes trending down
No past history of CKD, patient's creatinine jumped to 2.7, anuric, On CRRT
Acute respiratory failure,on ventilator
Blood culture came back positive for (MSSA)-appreciate ID consult-S.Aureus Pneumonia and S.aureus bacteremia-continue cefazolin,hold vancomycin
Repeat blood cultures-q48 until negative
Family aware
#Acute respiratory failure requiring mechanical ventilation
Patient on mechanical ventilation due to acute respiratory failure
Vent settings include PEEP of 5, FiO2 40%, tidal volume 550 and respiratory rate of 20-would go down on respiratory rate as patient is likely over ventilating as per Marrufo formula
#Worsening renal function refractory to diuresis
Patient has no past medical history of chronic kidney disease, worsening renal function most likely acute secondary to the shock
Olmesartan and hydrochlorothiazide on hold
Patient is on continuous renal replacement therapy-serum creatinine trending down, lactic acid trending down, metabolic acidosis improving
Nephro consult appreciated -although net ultrafiltration is 100 mL/h, all parameters suggest that there is some improvement
Continue renal replacement therapy
Trend lactate, serum creatinine and bicarb
Wean off vasopressors as tolerated
#Metabolic acidosis
Ph-7.46
Lactic acid 3.9, bicarb 18- appropirately being ventilated-No need of bicarb replacement as PH is above 7.2
continue to replace bicarb as able
# Anemia
Patient has no active source of bleeding
Iron studies normal
Hemoglobin increased from 9-10
Continue to monitor H&H
# Other medical condition
Colorectal adenocarcinoma with possible lung mets-recently started chemo and radiation/consult heme-onc
Persistent atrial fibrillation-continue Eliquis for anticoagulation and metoprolol for rate control
Essential hypertension-continue meds as able
Hyperlipidemia-continue rosuvastatin
# GI prophylaxis-pantoprazole 40 mg twice daily
# On tube feedings-Osmolite 1.2
#Maintain euglycemia with goal BG 140-180 with q6hr ISS
#Continue vasopressors-keep MAP>65
#replete electrolytes as needed,keep K>4 and MG>2
# DVT prophylaxis-on heparin infusion
# CODE STATUS-full code
Subjective Dataa
Subjective Data
Date of Service:
Date of Service: August 03, 2024
Chief Complaint: Certifed Refrigeration Operator Follow Up, Pulmonary Follow Up and Vent Management Follow Up
Subjective:
Patient's condition is static
On triple support, Levophed 30 mcg/min, phenylephrine 10 mcg/min, vasopressin 0.03/min
Sedated with fentanyl 100 mcg and Precedex 0.4
On tube feedings with Osmolite
Anuric
MAP less than 65
Review of Systems
General: Unobtainable - Sedation
Objective Data
Data Reviewed
Vital Signs / I&O / Oxygen:
Vital Signs
Temp Pulse Resp BP Pulse Ox
97.4 F 121 20 114/41 99
08/03/24 07:10 08/03/24 08:00 08/03/24 08:00 08/03/24 00:00 08/03/24 08:00
Intake and Output
08/02/24 08/03/24 08/04/24
06:59 06:59 06:59
Intake Total 4670.9 / 4813.1 3477.7 / 3678.6 348.9 / 348.9
Output Total 2284 / 2380 4427 / 4726 532 / 532
Balance 2386.9 / 2433.1 -949.3 / -1047.4 -183.1 / -183.1
SaO2 [A/C] 99
SaO2 99
Physical Exam
General: Comfortable and Other (Patient intubated, sedated and on vasopressors)
HEENT: Normocephalic, Anicteric and Other (ETT in place)
Cardiovascular: S1-S2 and Peripheral Edema (+1 lower extremity edema bilaterally)
Respiratory: ET Tube (Mechanical breath sounds heard bilaterally,vent settings vt 550,peep5,rr20,fio2 40)
GI: Soft, Non Distended and Normal Bowel Sounds
Neurology: Other (Sedated) and Other (Pupils +1 mm bilaterally; unresponsive)
Skin: Warm, Dry and Other (Bilateral lower extremity mottling)
Labs/Micro/Reports
Lab Data
08/03/24 03:41
08/03/24 07:57
Laboratory Results
08/02/24 08/02/24 08/02/24
12:00 12:04 14:43
APTT Cancelled Cancelled 79.4 H
pH 7.39
pCO2 22 L
pO2 198 H
HCO3 13.3 L*
O2 Delivery Level
08/02/24 08/03/24 08/03/24
20:15 03:41 06:00
APTT 107.8 H 162.7 H*
pH 7.46 H Cancelled
pCO2 26 L Cancelled
pO2 104 Cancelled
HCO3 18.5 L Cancelled
O2 Delivery Level 40% Cancelled
Microbiology
07/31/24 07:54 Blood/Venous Blood Culture - Preliminary
Streptococcus species
07/31/24 07:54 Blood/Venous Gram Stain - Preliminary
07/31/24 07:54 Blood/Venous Blood Culture - Preliminary
Streptococcus species
07/31/24 07:54 Blood/Venous Gram Stain - Final
08/01/24 18:19 Blood/Venous Blood Culture - Preliminary
No Growth in 24 hours- Final report to follow
08/01/24 15:36 Blood/Venous Blood Culture - Preliminary
No Growth in 24 hours- Final report to follow
07/31/24 12:18 Endotracheal Respiratory Culture - Final
S aureus-Methicillin Sensitive
07/31/24 12:18 Endotracheal Gram Stain - Final
07/31/24 11:49 Urine Legionella Urinary Antigen - Final
Negative for Legionella pneumophila Serogroup 1 antigen.
A negative result does not rule out the possiblity of
Legionella infection due to other serogroups or species of
Legionella. Clinical correlation is recommended.
07/31/24 11:49 Urine Streptococcus pneumoniae Antigen (M - Final
Negative for Streptococcus pneumoniae antigen.
A negative result does not exclude infection with
Streptococcus pneumoniae. Clinical correlation is
recommended.
07/31/24 12:18 Nose Nasal Screen MRSA (PCR) - Final
MRSA not detected - performed by PCR methodology.
07/31/24 08:10 Nasal Swab Influenza Types A & B (KHANG) - Final
Negative for Influenza A & B, NAAT
Negative results must be combined with clinical observations
and patient history.
Nucleic Acid Amplification test (NAAT)performed on the
[employer] platform.
--- NOTE | 2024-08-03 08:27 | W.PN.INTV ---
Today's Communication / Plan
Recommendations
CRRT
Antibiotics per ID
Trend lactate until <2mmol/L
Mechanical ventilation; hopefully can try SAT/SBT tomorrow
Titrate FiO2 + PEEP to keep SpO2 >90-94%
Guarded prognosis at this time
Full Code -discussed CODE STATUS with the today but she wants to continue with full medical management and keep him full code for now
Assessment
-
Assessment: 64-year-old M with PMHx of colorectal cancer, HAN on CPAP, A fib on Eliquis and pulmonary nodule in RUL who p/w dizziness and lethargy x 1-2 days. Hypotensive in triage to 80s/40s, with heart rate 108, and saturating 100% on room air.
Initial temperature 97.6 �F. Initial labs showed Hb 9, sodium 132, creatinine 1.4, lactate 4, AST 98, ALT 115, ALP 230, and COVID-19 antigen negative. Patient given 1 L NS 0.9% in the ER and was admitted to telemetry with CHRISS. Earlier this
morning, he was increasingly tachypneic, hypoxic on room air to the mid 80s, placed onto nonrebreather with saturations improving to 92%, tachycardic with A-fib with RVR and hypertensive with a fever. Lower extremities and trunk became mottled and
rapid response called. Placed onto BiPAP with no improvement in saturations. Stat CXR done showing evidence of pulmonary edema. He was transferred to the ICU and attempted NIV with no success, and he was intubated emergently. Senior Staff Psychologist service
is now consulted for additional management/recommendations.
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
restrictive lung disease, external hemorrhoids, dyslipidemia, obesity, hypertension
Impression:
#Acute respiratory failure due to on mechanical ventilation as of 07/31/2024
#Shock state, due to sedation and sepsis
#CHRISS now on CRRT (stared 08/01/2024)
#Streptococcal bacteremia (via blood cultures on 07/31/2024)
#Acute cardiogenic pulmonary edema
#Acute HFpEF exacerbation
#Fever with MSSA pneumonia with septic shock
#Leukocytosis
#Anemia
#Metabolic acidosis with increased anion gap due to severe CHRISS and lactic acidosis
#Lactic acidosis
#Transaminitis with hyperbilirubinemia due to shock liver
#Elevated troponin likely due to demand ischemia with type II NM from shock state � peaked at 0.796 on 07/31/2024
#A-fib with RVR
#Metastatic colorectal cancer with suspected lung metastasis (diagnosed via colonoscopy on 06/22/2024 with partially obstructing tumor seen in the rectum 4 cm from the anal verge, invasive low-grade colorectal adenocarcinoma)
#PET avid 2.2 cm right upper lobe nodule originally planned for robotic bronchoscopy on 08/03/2024 (will be deferred for now)
#HAN on auto CPAP
#History of psoriasis previously on Enbrel
#History of hepatitis A
#History of COVID-19 (04/03)
#Restrictive lung disease (suspected based on spirometry from 05/15/2021, however patient was coughing during testing and post-bronchodilator FVC was WNL at 84% predicted
Plan:
- Continue mechanical ventilation with daily SAT/SBT if clinically indicated ---> hopefully can try tomorrow to do SBT
- prn nebulized bronchodilators - not currently bronchospastic
- Continue aspiration precautions
- Titrate FiO2 + PEEP to maintain SpO2 >90-94%
- Maintain plateau pressure <30
- Now that he is on CRRT, no need to continue with diuresis; he had no ultrafiltration yesterday, but today we will try to remove some fluid as tolerated
- Replete electrolytes with K>4, Mg>2 while on CRRT
- Echo from 07/31/2024 showed normal biventricular function with normal RV function with top normal RV size, with mildly elevated PASP at 38 mmHg
- Cardiology consulted - recs appreciated
- Continue broad spectrum ABx with ancef s/p vancomycin (07/31-08/01/2024) and s/p cefepime (07/31-08/01/2024); MRSA swab negative and sputum Cx from 07/31/2024 grew MSSA
- Follow-up sets x2 of surveillance blood cultures from 08/01/2024 + 08/03 (showing NGTD)
- Blood cultures from 07/31/2024 grew Streptococcus salivarius (melo-sensitive)
- ID consulted - recs appreciated
- trend WBC and monitor fever curve; Tx with tylenol but keep <2g per 24 hrs given his transaminitis
- Continue vasopressors and maintain MAP>65, SBP>90
- Trend sHCO3; blood gas shows pH>7.3 so no need for bicarb drip; continue to trend pH and pCO2 with serial blood gases
- Trend lactate until <2 mmol/L
- Troponin peaked on 07/31/2024 at 0.796; no longer need to continue trending at this time
- Trend LFTs and T. bili
- Renally dose all meds/Abx
- Trend sCr, UOP and continue strict I/O
- Maintain euglycemia with goal BG 140-180 with q6hr ISS
- Trend H/H and transfuse if needed to keep Hb>7g/dL; keep plt>20k, unless there is concern for bleeding then keep plt>50k
- Start tube feeds with 5cc free water flush to minimize volume
- DVT ppx: Eliquis changed to heparin gtt now that he is on CRRT
Once patient is discharged (assuming that he survives this hospitalization), he will follow-up with us in the office again. He last saw us on 07/25/[address] Olguin.
Patient's , Adriana, as well as the patient's daughters x2 were both updated at bedside and were both present during rounds. All questions were answered and emotional support was provided.
Critical care statement: A total of 37 minutes of critical care time was provided for this patient today. This includes management of unstable vital signs, evaluation of the patient at bedside, reviewing the patient's pertinent medical records
including radiographs, microbiology, laboratory evaluations, and discussion with primary team, consultants, pharmacy, nutrition, physical therapy, case management, charge nurse, critical care nursing, and respiratory therapy.
Data:
CXR 07/31/2024: Prominent markings suggesting combination of interstitial and to a lesser extent alveolar acute pulmonary edema.
CXR 08/01/2024: Findings concerning for progressed moderate pulmonary edema. Developing bibasilar pneumonia cannot be excluded.
CXR 08/03/2024: Pulmonary edema, more pronounced compared to prior chest x-ray; Suspected bilateral pleural effusions, also increased.
Subjective Dataa
Subjective Data
Date of Service:
Date of Service: August 03, 2024
Chief Complaint: Senior Staff Psychologist Follow Up, Pulmonary Follow Up and Vent Management Follow Up
Subjective:
Patient seen and evaluated today at bedside. Currently on 30mcg/min of levo; both vaso and brandi are off. Currently on TF at 40cc/hr. Heart rate is 131, saturating 96%, BP 161/43 and respiratory rate 18. Currently intubated on AC/CMV 20/550/40%/5,
with PIP: 18 cmH2O, VTe 491 cc and breathing at 18 breaths/min. Patient's , Adriana, as well as daughter, Paty, at bedside.
Review of Systems
General: Unobtainable - Pat Unresp and Unobtainable - Sedation
Objective Data
Data Reviewed
Vital Signs / I&O / Oxygen:
Vital Signs
Temp Pulse Resp BP Pulse Ox
97.4 F 121 20 114/41 98
08/03/24 07:10 08/03/24 08:00 08/03/24 08:00 08/03/24 00:00 08/03/24 08:37
Intake and Output
08/02/24 08/03/24 08/04/24
06:59 06:59 06:59
Intake Total 4670.9 / 4813.1 3477.7 / 3678.6 554.2 / 554.2
Output Total 2284 / 2380 4427 / 4726 775 / 775
Balance 2386.9 / 2433.1 -949.3 / -1047.4 -220.8 / -220.8
SaO2 [A/C] 99
SaO2 98
Physical Exam
General: Respiratory Distress (negative), Comfortable, Chills (negative) and Other (Patient intubated, sedated and on vasopressors)
HEENT: Normocephalic, Anicteric and Other (ETT in place)
Cardiovascular: S1-S2 and Peripheral Edema (+1 lower extremity edema bilaterally)
Respiratory: Wheeze (negative), Crackles (Bilateral), Rhonchi (negative), Accessory Resp Muscle Use (negative), Stridor (negative) and ET Tube (Mechanical breath sounds heard bilaterally)
GI: Soft, Distended (Abdominal obesity) and Normal Bowel Sounds
Neurology: Other (Corneal reflexes bilaterally intact, strong gag/cough reflex) and Other (Pupils +1 mm bilaterally; sedated)
Skin: Warm, Dry, Cyanosis (negative) and Jaundice (negative)
Labs/Micro/Reports
Lab Data
08/03/24 03:41
08/03/24 20:00
Laboratory Results
08/02/24 08/02/24 08/02/24
12:00 12:04 14:43
APTT Cancelled Cancelled 79.4 H
pH 7.39
pCO2 22 L
pO2 198 H
HCO3 13.3 L*
O2 Delivery Level
08/02/24 08/03/24 08/03/24
20:15 03:41 06:00
APTT 107.8 H 162.7 H*
pH 7.46 H Cancelled
pCO2 26 L Cancelled
pO2 104 Cancelled
HCO3 18.5 L Cancelled
O2 Delivery Level 40% Cancelled
Microbiology
07/31/24 07:54 Blood/Venous Blood Culture - Preliminary
Streptococcus species
07/31/24 07:54 Blood/Venous Gram Stain - Preliminary
07/31/24 07:54 Blood/Venous Blood Culture - Preliminary
Streptococcus species
07/31/24 07:54 Blood/Venous Gram Stain - Final
08/01/24 18:19 Blood/Venous Blood Culture - Preliminary
No Growth in 24 hours- Final report to follow
08/01/24 15:36 Blood/Venous Blood Culture - Preliminary
No Growth in 24 hours- Final report to follow
07/31/24 12:18 Endotracheal Respiratory Culture - Final
S aureus-Methicillin Sensitive
07/31/24 12:18 Endotracheal Gram Stain - Final
07/31/24 11:49 Urine Legionella Urinary Antigen - Final
Negative for Legionella pneumophila Serogroup 1 antigen.
A negative result does not rule out the possiblity of
Legionella infection due to other serogroups or species of
Legionella. Clinical correlation is recommended.
07/31/24 11:49 Urine Streptococcus pneumoniae Antigen (M - Final
Negative for Streptococcus pneumoniae antigen.
A negative result does not exclude infection with
Streptococcus pneumoniae. Clinical correlation is
recommended.
07/31/24 12:18 Nose Nasal Screen MRSA (PCR) - Final
MRSA not detected - performed by PCR methodology.
07/31/24 08:10 Nasal Swab Influenza Types A & B (KHANG) - Final
Negative for Influenza A & B, NAAT
Negative results must be combined with clinical observations
and patient history.
Nucleic Acid Amplification test (NAAT)performed on the
[employer] platform.
--- NOTE | 2024-08-03 08:28 | W.PN.UPDATE ---
Update Note
Progress Note Update
CRRT running. 2K. UF 100ml/hr. on systemic heparin for Afib
q6h labs today
[2024-08-03] MEDS: MAGNESIUM SULFATE 100 IV (08:41)
--- NOTE | 2024-08-03 09:12 | W.PN.ID1 ---
Addendum entered and electronically signed by Margo Smith MD 08/03/24 14:41:
improved pressor requirements through the afternoon, now on levo 20 mcg, vaso and brandi remains off
no further changes to antibiotics at this time
strep IDd as VGS - overall suspect contaminant
will continue to follow repeat blood cultures
Original Note:
Date of Service
Date of Service: August 03, 2024
Today's Communication
trialing increased dose of cefazolin, will obtain level tuesday, results anticipated tuesday
Assessment / Plan
S aureus Pneumonia
Strep bacteremia - await final ID
CHRISS on CRRT
Class III Obesity
Colorectal Adenocarcinoma - not yet on treatment
Psoriatic Arthritis - currently off of Enbrel since ~05/03
- initial blood cultures x2 at the same time with strep - follow for final ID
- Repeat blood cultures in progress no growth to date
- MSSA from sputum
- TTE on 07/31 without vegetations - may consider repeat if bacteremia is persistent
- c/w cefazolin - dosed for CRRT - dosing reviewed again with clinical pharmacy Elvis Roberts, given increasing hypotension overnight, lack of definitive data for CRRT at this BMI, we have increased the dose of cefazolin to 2 gm IV q8 hours, plan to get
level on Tuesday which will result tuesday
follow pressor requirements, blood cultures, cbc etc. Patient remains critically ill - somewhat more hypotensive overnight
Chief Complaint
-: Pneumonia (S aureus) and Bacteremia (streptococcus)
Subjective / Review of Systems
hypothermia resolving
increased norepi overnight, phenylephrine back on, vaso remains on
remains aneuric
no other events overnight
Vital Signs / Physical Exam
Vital Signs
Vital Signs
Temp Pulse Resp BP Pulse Ox
97.4 F 121 20 114/41 98
08/03/24 07:10 08/03/24 08:00 08/03/24 08:00 08/03/24 00:00 08/03/24 08:37
Physical Exam
Constitutional: Acutely Ill, Chronically Ill and Obese
Cardiovascular: Regular Rate and S1/S2; Negative Murmur or Rub
Pulmonary: Symmetric, Coarse and Non Labored; Negative Wheezes or Rales
Gastrointestinal: Soft, Non Tender, Non Distended and Normal Bowel Sounds
Skin: Warm and Dry; Negative Rash or Jaundice
Neurological: Negative Awake
Lines: Other (HD Cath (no erythema, warmth, tenderness, drainage ) and PICC, Midline, mike - no erythema, warmth, tenderness, drainage )
Objective Data
Lab Data
Lab Results
08/03/24 03:41
08/03/24 20:00
PT 19.2 Sec (11.4-14.6) H 07/31/24 17:56
INR 1.59 07/31/24 17:56
APTT 162.7 Sec (23.4-35.0) H* 08/03/24 03:41
Estimated Creat Clear Cancelled 08/03/24 20:00
Lactic Acid 3.2 mmol/L (0.7-2.0) H 08/03/24 07:57
Total Bilirubin 5.2 mg/dl (0.2-1.3) H 08/03/24 03:41
AST 5001 U/L (17-59) H* 08/03/24 03:41
ALT 2924 U/L (0-50) H* 08/03/24 03:41
Alkaline Phosphatase 350 U/L (38-126) H 08/03/24 03:41
Most recent labs reviewed.
Cr improved from yesterday
Micro Results:
07/31/24 07:54 Blood Culture - Preliminary
Blood/Venous Streptococcus species
Gram Stain - Preliminary
07/31/24 07:54 Blood Culture - Preliminary
Blood/Venous Streptococcus species
Gram Stain - Final
08/03/24 03:28 Blood Culture - Pending
Blood/Venous
08/03/24 03:41 Blood Culture - Pending
Blood/Venous
08/01/24 18:19 Blood Culture - Preliminary
Blood/Venous No Growth in 24 hours- Final report to follow
08/01/24 15:36 Blood Culture - Preliminary
Blood/Venous No Growth in 24 hours- Final report to follow
07/31/24 12:18 Respiratory Culture - Final
Endotracheal S aureus-Methicillin Sensitive
Gram Stain - Final
07/31/24 11:49 Legionella Urinary Antigen - Final
Urine Negative for Legionella pneumophila Serogroup 1 antigen.
A negative result does not rule out the possiblity of
Legionella infection due to other serogroups or species of
Legionella. Clinical correlation is recommended.
Streptococcus pneumoniae Antigen (M - Final
Negative for Streptococcus pneumoniae antigen.
A negative result does not exclude infection with
Streptococcus pneumoniae. Clinical correlation is
recommended.
07/31/24 12:18 Nasal Screen MRSA (PCR) - Final
Nose MRSA not detected - performed by PCR methodology.
07/31/24 08:10 Influenza Types A & B (KHANG) - Final
Nasal Swab Negative for Influenza A & B, NAAT
Negative results must be combined with clinical observations
and patient history.
Nucleic Acid Amplification test (NAAT)performed on the
[employer] platform.
--- NOTE | 2024-08-03 09:24 | W.PN.CARDCBS ---
Today's Communication / Plan
-
HR remains rapid in atrial fibrillation/flutter
Wean levophed as able
Hold BB while on multiple pressors
Volume removal per nephrology
Impression / Plan
-
Primary Health Support Specialist: Dr. Hiren Vicente
Impression:
MSOF (resp failure, CHF, liver failure, renal failure)
Hypotension requiring pressors
CHRISS (likely as a consequence of hypotension, possibly from septic shock versus cardiogenic shock or combination of both)
Acute hypoxic respiratory failure requiring intubation 07/31/24
Liver failure (likely as a consequence of hypotension, possibly from septic shock versus cardiogenic shock or combination of both)
Fever
Sepsis, s aureus PNA, possible S aureus bacteremia
Initial concern for flash pulm edema
Recent diagnosis paroxysmal atrial fibrillation with recurrent AFib with RVR
Colorectal cancer, suspected metastatic, diagnosed 06/22/2024, not yet started on therapy
Pulmonary nodule with concern for metastasis, scheduled for lung biopsy 08/03
Hypertension
Hyperlipidemia
Obstructive sleep apnea
Obesity
ECHO 07/31/24: Normal LV function. LVEF is 55-60%. No wall motion abnormality. Top normal right ventricular size with normal RV function. Mild AI and mild TR. Estimated pulmonary artery pressure of 38 mmHg
Plan:
He remains critically ill with MSOF (resp failure, CHF, liver failure, renal failure), shock, sepsis, lactic acidosis. He remains pressor dependent.
Continue hemodynamic support with IV pressors as needed for bp support.
Currently on Levophed, vasopressin and phenylephrine
Given elevated HR would try to wean levophed first if possible
Possible decompensated heart failure with preserved ejection fraction presenting with rapid development of pulmonary edema
Poor urine output with attempted IV Lasix diuresis in the setting of acute kidney injury and rising creatinine
Receiving CRRT
Nephrology does not feel pt is in HF. Volume control as per renal.
Persistent atrial fibrillation recently converted to sinus rhythm (this hospital stay) and now paroxysmal and back in AFib.
Cont IV Heparin anticoagulation for thromboembolic risk reduction (CHADSVASc = 2 with CHF, HTN) + higher thrombotic risk with malignancy
Eventual AV kalin nirav for rate control as BP tolerates however with pressor therapy would hold Toprol for now.
No amiodarone given hepatic injury
HLD
Hold statin with elevated LFTs
Discussed with ICU nursing
HPI:
64-year-old man with recently diagnosed colorectal cancer with possible lung metastasis and recent diagnosis of atrial fibrillation who presented with lightheadedness and dizziness after starting oral metoprolol as an outpatient and presented to
[place] emergency department for further management. After being found to have CHRISS and anemia he was admitted for further management. Unfortunately developed increased work of breathing this morning, became tachycardic and was found to be
febrile. Did not clinically improve with BiPAP and he was subsequently intubated and transferred to the medical ICU for further management. Currently being treated with broad-spectrum antibiotics and requiring pressor support.
Seen in the outpatient cardiology office 07/26/24 and was in AF with a rapid ventricular rate of 130 bpm. At that visit he had yet to initiate Toprol-XL which was ordered by his primary care physician. At that office visit he agreed to initiate
Toprol-XL 25 mg daily for rate control with plan to defer recommendations regarding rhythm control until he was adequately anticoagulated (atrial fibrillation of unknown duration) and to allow for intermittent interruption of anticoagulation for
planned upcoming procedures regarding his recently diagnosed colorectal cancer with likely pulmonary metastases (bronchoscopy, port placement, colorectal surgery). Eliquis 5 mg twice daily was also initiated on 07/26/24..
Cardiology is consulted for possible heart failure as a cause of his respiratory decompensation. proBNP was mildly elevated (3210), it is possible there is some component of heart failure with preserved ejection fraction.
On presentation to the emergency department 07/30/24, he was in atrial fibrillation with reasonably controlled ventricular rate of 105 bpm. EKG of July 31, 2024 finds sinus rhythm at 77 bpm.
Progress Note - Health Support Specialist
Subjective
Date of Service: August 03, 2024
Remains intubated in MICU. Now requiring 3 pressors. On CRRT.
Objective
Labs:
08/03/24 03:41
08/03/24 20:00
Labs
Hgb 10.9 g/dL (13.0-18.0) L 08/03/24 03:41
Hct 32.6 % (39.0-52.0) L 08/03/24 03:41
Plt Count 158 10^3/uL (130-400) D 08/03/24 03:41
PT 19.2 Sec (11.4-14.6) H 07/31/24 17:56
INR 1.59 07/31/24 17:56
APTT 162.7 Sec (23.4-35.0) H* 08/03/24 03:41
Sodium Cancelled 08/03/24 20:00
Potassium Cancelled 08/03/24 20:00
BUN Cancelled 08/03/24 20:00
Creatinine Cancelled 08/03/24 20:00
Glucose Cancelled 08/03/24 20:00
Troponins
07/31/24 07/31/24 07/31/24
09:15 12:18 15:15
Troponin I Cancelled 0.796 H* Cancelled
07/31/24 07/31/24 08/01/24
17:56 21:15 03:51
Troponin I 0.749 H* Cancelled 0.536 H*
08/01/24
03:51
Troponin I 0.544 H*
Vital Signs and I&O:
Vital Signs
Temp Pulse Resp BP Pulse Ox
97.4 F 121 20 114/41 98
08/03/24 07:10 08/03/24 08:00 08/03/24 08:00 08/03/24 00:00 08/03/24 08:37
Vital Signs
Temp Pulse Resp BP Pulse Ox
97.4 F 121 20 114/41 98
08/03/24 07:10 08/03/24 08:00 08/03/24 08:00 08/03/24 00:00 08/03/24 08:37
Intake & Output
08/01/24 08/02/24 08/03/24 08/04/24
06:59 06:59 06:59 06:59
Intake Total 2801.1 / 3002.8 4670.9 / 4813.1 3477.7 / 3678.6 554.2 / 554.2
Output Total 317 / 325 2284 / 2380 4427 / 4726 775 / 775
Balance 2484.1 / 2677.8 2386.9 / 2433.1 -949.3 / -1047.4 -220.8 / -220.8
Physical Exam
Physical Exam
Gen: NAD
HEENT: NC/AT, scleral icterus
Neck: No JVD
CV: tachy, no M/R/G
Lungs: Mechanically ventilated
Abd: S/ND
: Alvarez with zion urine.
Ext: 1+ peripheral edema
Skin: Warm, dry.
Neuro: Sedated
--- NOTE | 2024-08-03 09:59 | PTCARENOTE ---
ok per Dr. Ball to keep tube feeds at 40cc/hr. plan of care discussed with and daughter in rounds. crrt continues.
[2024-08-03] MEDS: ANCEF 10 IV ×2 (11:01→20:29)
[2024-08-03] MEDS: LOPRESSOR 12.5 MG PO (11:01)
[2024-08-03 11:17] LABS: Glucose - Point of Care 130 mg/dl (70-99)
[2024-08-03 11:38] LABS: APTT 158.4 Sec (23.4-35.0)
--- NOTE | 2024-08-03 12:14 | PTCARENOTE ---
assessment unchanged, weaning pressors as tolerated. brandi off at this time. maintaining systolic >90. crrt now running with -200 off every hour per order. family at bedside and remains updated. assessment unchanged further
[2024-08-03 14:20] LABS: Ionized Calcium 1.05 mMOL/L (1.15-1.33)
[2024-08-03 14:32] LABS: Blood Urea Nitrogen 37 mg/dl (9-20); Calcium 7.3 mg/dl (8.4-10.2); Carbon Dioxide 23 mmol/L (22-30); Chloride 101 mmol/L (98-107); Estimated Creatinine Clearance 51 ml/min; Glucose 141 mg/dl (70-99); Magnesium 2.7 mg/dl (1.6-2.3); Phosphorus 3.8 mg/dl (2.5-4.5); Potassium 3.9 mmol/L (3.5-5.1); Sodium 131 mmol/L (135-145); eGFR 34.93
[2024-08-03 14:33] LABS: Lactic Acid 2.3 mmol/L (0.7-2.0)
--- NOTE | 2024-08-03 16:56 | PTCARENOTE ---
fentanyl gtt decreased per Dr. Ball order. boluses given prn as needed. assessment unchanged, between afib and st on monitor. levophed and vaso continue. turned and repositioned. crrt continues.
[2024-08-03] MEDS: NOVOLOG FLEXPEN-MODERATE RESISTANCE 1 UNITS SC (18:10)
[2024-08-03 18:20] LABS: Glucose - Point of Care 183 mg/dl (70-99)
[2024-08-03 18:32] LABS: APTT 152.6 Sec (23.4-35.0)
[2024-08-03 20:24] LABS: Ionized Calcium 1.08 mMOL/L (1.15-1.33)
[2024-08-03] MEDS: CALCIUM GLUCONATE 100 IV (20:47)
[2024-08-03 20:50] LABS: Blood Urea Nitrogen 36 mg/dl (9-20); Calcium 7.5 mg/dl (8.4-10.2); Carbon Dioxide 26 mmol/L (22-30); Chloride 100 mmol/L (98-107); Estimated Creatinine Clearance 49 ml/min; Glucose 177 mg/dl (70-99); Magnesium 2.6 mg/dl (1.6-2.3); Phosphorus 3.3 mg/dl (2.5-4.5); Potassium 3.9 mmol/L (3.5-5.1); Sodium 131 mmol/L (135-145); eGFR 33.04
--- NOTE | 2024-08-03 20:53 | PTCARENOTE ---
Assumed care of pt. approx 1900.
Remains intubated/sedated/CVVHD.
CVVHD current 2K bath, with net negative goal of 200. SEE flow sheet for details.
Remains on x2 norepi, vasopressin, Phenyl remains off. All titrations made off arterial line, correlating within 10 points of NIBP.
Tolerating all therapies, family bedside, all questions answered, plan of care discussed.
--- NOTE | 2024-08-03 23:53 | PTCARENOTE ---
Titrating Norepi down, pt. tolerating, see flowsheet for details.
CVVHD running w/o downtimes, bloodflow rate decreased due to arterial flow issues.
No further change in pt. assessment.
[2024-08-04] VITALS (12 sets, daily range): BP systolic 80–150; BP diastolic 45; BMI 42.1
[2024-08-04] LABS: Glucose - Point of Care 137 mg/dl (70-99)
[2024-08-04] MEDS: PRECEDEX 100 IV ×7 (00:10→23:06)
[2024-08-04] MEDS: SUBLIMAZE 100 IV (00:11)
[2024-08-04] MEDS: LEVOPHED 258 MG IV ×3 (00:11→17:12)
[2024-08-04] MEDS: NOVOLOG FLEXPEN-MODERATE RESISTANCE SC ×3 (00:14→23:55)
[2024-08-04 00:16] LABS: APTT 132.7 Sec (23.4-35.0)
[2024-08-04] MEDS: RFP-400 HD Soln (K+ 2 mEq/L) 5000 ML CRRT-IRR ×3 (00:50→19:29)
[2024-08-04 03:00] LABS: Ionized Calcium 1.11 mMOL/L (1.15-1.33)
[2024-08-04] MEDS: CALCIUM GLUCONATE 100 IV ×4 (03:09→20:22)
[2024-08-04 03:24] LABS: Blood Urea Nitrogen 32 mg/dl (9-20); Calcium 7.8 mg/dl (8.4-10.2); Carbon Dioxide 23 mmol/L (22-30); Chloride 104 mmol/L (98-107); Estimated Creatinine Clearance 54 ml/min; Glucose 123 mg/dl (70-99); Magnesium 2.5 mg/dl (1.6-2.3); Phosphorus 3.2 mg/dl (2.5-4.5); Sodium 134 mmol/L (135-145); eGFR 37.04
[2024-08-04] MEDS: PITRESSIN 100 IV ×3 (03:26→22:10)
[2024-08-04] MEDS: HEPARIN 25000 UNITS/250 ML IV ×2 (03:26→15:55)
[2024-08-04 04:02] LABS: Albumin 2.5 g/dl (3.5-5.0); Alkaline Phosphatase 436 U/L (38-126)
[2024-08-04 04:09] LABS: B.E. -1.8 mmol/L; HCO3 21.5 mmol/L (21-28); O2 Saturation % 99.7 % (94-98); PCO2 31 mmHg (35-48); PO2 148 mmHg (83-108); pH 7.45 (7.35-7.45)
[2024-08-04 04:21] LABS: Total Bilirubin 5.3 mg/dl (0.2-1.3); Total Protein 5.8 g/dl (6.3-8.2)
--- NOTE | 2024-08-04 04:23 | PTCARENOTE ---
Norepi and fent. titrated down, pt. tolerating adjustments, see titration flowsheets for details.
TF advanced to 55, now at goal.
CVVHD running w/o downtime or issues. Remains on 2K bath.
No further changes in assessment.
[2024-08-04 04:40] LABS: Hemoglobin 10.7 g/dL (13.0-18.0); Mean Corp Hgb Conc. 33.4 g/dL (33.0-37.0); Mean Corpuscular Hgb 26.9 pg (27.0-31.0); Mean Corpuscular Volume 80.4 fL (80.0-94.0); Mean Platelet Volume 10.4 fL (7.4-10.4); Platelet Count 141 10^3/uL (130-400); Red Blood Cell Count 3.98 10^6/uL (4.70-6.10); Red Cell Dist. Width 15.6 % (11.5-14.5); White Blood Cell Count 14.6 10^3/uL (4.8-10.8)
[2024-08-04 04:51] LABS: ALT (SGPT) 1402 U/L (0-50); AST (SGOT) 2585 U/L (17-59)
[2024-08-04] MEDS: ANCEF 10 IV ×3 (04:57→19:02)
[2024-08-04] MEDS: SUBLIMAZE 50 MCG IV ×4 (04:57→09:54)
[2024-08-04 06:06] LABS: Glucose - Point of Care 150 mg/dl (70-99)
[2024-08-04] MEDS: NOVOLOG FLEXPEN-MODERATE RESISTANCE 1 UNITS SC ×2 (06:07→11:16)
[2024-08-04 06:53] LABS: APTT 144.8 Sec (23.4-35.0)
[2024-08-04] MEDS: SENOKOT-S 1 TABLET TUBE ×2 (06:57→19:02)
[2024-08-04] MEDS: NSS (PRESERVATIVE FREE) 10 ML IV (06:58)
[2024-08-04] MEDS: PROTONIX IV 40 MG IV (06:58)
--- NOTE | 2024-08-04 07:33 | PTCARENOTE ---
Addendum entered by Marya Vallecillo RN 08/04/24 07:35:
heparin gtt on hold for 1 hour per protocol for ptt result.
Original Note:
pt received from previous rn- ett to vent- see settings as charted. pt remains on low dose fentanyl and precedex gtt, pt opens eyes to name and tactile. nods head appropriately and follows commands. at bedside and educated about plan of care,
verbalized understanding. all care explained as provided to pt. pt with right ij hd cath- crrt continues, running -200 an hour. levo and vaso continue to maintain systolic>90. right radial mike zeroed and functioning. pt between afib and nsr/st. am
care provided. all safety precautions in place.
--- NOTE | 2024-08-04 07:35 | W.PN.CARDCBS ---
Today's Communication / Plan
-
Continue hemodynamic support with IV pressors as needed for bp support.
Currently on Levophed, vasopressin. He is off phenylephrine
Given PAFib with elevated HR would try to wean levophed first if possible
Currently in sinus with good HR control.
Possible decompensated heart failure with preserved ejection fraction presenting with rapid development of pulmonary edema
Poor urine output with attempted IV Lasix diuresis in the setting of acute kidney injury and rising creatinine
Receiving CRRT
Cont volume control as per renal.
Persistent atrial fibrillation recently converted to sinus rhythm (this hospital stay) and now paroxysmal and back in sinus
Cont IV Heparin anticoagulation for thromboembolic risk reduction (CHADSVASc = 2 with CHF, HTN) + higher thrombotic risk with malignancy
Eventual AV kalin nirav for rate control as BP tolerates however with pressor therapy would hold Toprol for now.
No amiodarone given hepatic injury
HLD
Hold statin with elevated LFTs.
LFTs slowly improving
Impression / Plan
-
.
Primary Lokie Engineer: Dr. Hiren Vicente
Impression:
MSOF (resp failure, CHF, liver failure, renal failure)
Hypotension requiring pressors
CHRISS (likely as a consequence of hypotension, possibly from septic shock versus cardiogenic shock or combination of both)
Acute hypoxic respiratory failure requiring intubation 07/31/24
Liver failure (likely as a consequence of hypotension, possibly from septic shock versus cardiogenic shock or combination of both)
Fever
Sepsis, s aureus PNA, possible S aureus bacteremia
Initial concern for flash pulm edema
Recent diagnosis paroxysmal atrial fibrillation with recurrent AFib with RVR
Colorectal cancer, suspected metastatic, diagnosed 06/22/2024, not yet started on therapy
Pulmonary nodule with concern for metastasis, scheduled for lung biopsy 08/03
Hypertension
Hyperlipidemia
Obstructive sleep apnea
Obesity
ECHO 07/31/24: Normal LV function. LVEF is 55-60%. No wall motion abnormality. Top normal right ventricular size with normal RV function. Mild AI and mild TR. Estimated pulmonary artery pressure of 38 mmHg
Plan:
He remains critically ill with MSOF (resp failure, CHF, liver failure, renal failure), shock, sepsis, lactic acidosis. He remains pressor dependent.
Continue hemodynamic support with IV pressors as needed for bp support.
Currently on Levophed, vasopressin. He is off phenylephrine
Given PAFib with elevated HR would try to wean levophed first if possible
Currently in sinus with good HR control.
Possible decompensated heart failure with preserved ejection fraction presenting with rapid development of pulmonary edema
Poor urine output with attempted IV Lasix diuresis in the setting of acute kidney injury and rising creatinine
Receiving CRRT
Cont volume control as per renal.
Persistent atrial fibrillation recently converted to sinus rhythm (this hospital stay) and now paroxysmal and back in sinus
Cont IV Heparin anticoagulation for thromboembolic risk reduction (CHADSVASc = 2 with CHF, HTN) + higher thrombotic risk with malignancy
Eventual AV kalin nirav for rate control as BP tolerates however with pressor therapy would hold Toprol for now.
No amiodarone given hepatic injury
HLD
Hold statin with elevated LFTs.
LFTs slowly improving
Discussed with ICU nursing, primary service and nephrology
CCT: 38 min
HPI:
64-year-old man with recently diagnosed colorectal cancer with possible lung metastasis and recent diagnosis of atrial fibrillation who presented with lightheadedness and dizziness after starting oral metoprolol as an outpatient and presented to
[place] emergency department for further management. After being found to have CHRISS and anemia he was admitted for further management. Unfortunately developed increased work of breathing this morning, became tachycardic and was found to be
febrile. Did not clinically improve with BiPAP and he was subsequently intubated and transferred to the medical ICU for further management. Currently being treated with broad-spectrum antibiotics and requiring pressor support.
Seen in the outpatient cardiology office 07/26/24 and was in AF with a rapid ventricular rate of 130 bpm. At that visit he had yet to initiate Toprol-XL which was ordered by his primary care physician. At that office visit he agreed to initiate
Toprol-XL 25 mg daily for rate control with plan to defer recommendations regarding rhythm control until he was adequately anticoagulated (atrial fibrillation of unknown duration) and to allow for intermittent interruption of anticoagulation for
planned upcoming procedures regarding his recently diagnosed colorectal cancer with likely pulmonary metastases (bronchoscopy, port placement, colorectal surgery). Eliquis 5 mg twice daily was also initiated on 07/26/24..
Cardiology is consulted for possible heart failure as a cause of his respiratory decompensation. proBNP was mildly elevated (3210), it is possible there is some component of heart failure with preserved ejection fraction.
On presentation to the emergency department 07/30/24, he was in atrial fibrillation with reasonably controlled ventricular rate of 105 bpm. EKG of July 31, 2024 finds sinus rhythm at 77 bpm.
Progress Note - Lokie Engineer
Subjective
Date of Service: August 04, 2024
Patient seen and examined. Sedated on vent
Objective
Labs:
08/04/24 03:58
Labs
Hgb 10.7 g/dL (13.0-18.0) L 08/04/24 03:58
Hct 32.0 % (39.0-52.0) L 08/04/24 03:58
Plt Count 141 10^3/uL (130-400) 08/04/24 03:58
PT 19.2 Sec (11.4-14.6) H 07/31/24 17:56
INR 1.59 07/31/24 17:56
APTT 144.8 Sec (23.4-35.0) H 08/04/24 05:56
Sodium Cancelled 08/04/24 06:00
Potassium Cancelled 08/04/24 06:00
BUN Cancelled 08/04/24 06:00
Creatinine Cancelled 08/04/24 06:00
Glucose Cancelled 08/04/24 06:00
Vital Signs and I&O:
Vital Signs
Temp Pulse Resp BP Pulse Ox
97.3 F 100 19 116/50 99
08/04/24 07:00 08/04/24 07:15 08/04/24 07:15 08/03/24 12:00 08/04/24 07:24
Vital Signs
Temp Pulse Resp BP Pulse Ox
97.3 F 100 19 116/50 99
08/04/24 07:00 08/04/24 07:15 08/04/24 07:15 08/03/24 12:00 08/04/24 07:24
Intake & Output
08/02/24 08/03/24 08/04/24 08/05/24
06:59 06:59 06:59 06:59
Intake Total 4670.9 / 4813.1 3477.7 / 3678.6 3736.4 / 3890.1 153.7 / 153.7
Output Total 2284 / 2380 4427 / 4726 7619 / 7947 328 / 328
Balance 2386.9 / 2433.1 -949.3 / -1047.4 -3882.6 / -4056.9 -174.3 / -174.3
Physical Exam
Physical Exam
General: sedated on vent
Neck: Negative JVD
Heart: Regular, Negative S3 positive S1/S2, Negative S4, No murmur
Lungs: Negative wheezes/rales/rhonchi
Abd: Morbid obesity. Positive BS, NT/ND, neg rebound/rigidity/guarding
Ext: Negative cyanosis/clubbing/edema
Neuro: nonfocal
--- NOTE | 2024-08-04 07:40 | W.PN.INTV ---
Today's Communication / Plan
Recommendations
CRRT
Antibiotics per ID
Trend lactate until <2mmol/L
Mechanical ventilation; daily SAT/SBT tomorrow
Titrate FiO2 + PEEP to keep SpO2 >90-94%
Guarded prognosis at this time
Full Code - discussed code status with the on 08/03 but she wants to continue with full medical management and keep him full code for now
Assessment
-
Assessment: 64-year-old M with PMHx of colorectal cancer, HAN on CPAP, A fib on Eliquis and pulmonary nodule in RUL who p/w dizziness and lethargy x 1-2 days. Hypotensive in triage to 80s/40s, with heart rate 108, and saturating 100% on room air.
Initial temperature 97.6 �F. Initial labs showed Hb 9, sodium 132, creatinine 1.4, lactate 4, AST 98, ALT 115, ALP 230, and COVID-19 antigen negative. Patient given 1 L NS 0.9% in the ER and was admitted to telemetry with CHRISS. Earlier this
morning, he was increasingly tachypneic, hypoxic on room air to the mid 80s, placed onto nonrebreather with saturations improving to 92%, tachycardic with A-fib with RVR and hypertensive with a fever. Lower extremities and trunk became mottled and
rapid response called. Placed onto BiPAP with no improvement in saturations. Stat CXR done showing evidence of pulmonary edema. He was transferred to the ICU and attempted NIV with no success, and he was intubated emergently. Byproducts Supervisor service
is now consulted for additional management/recommendations.
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
restrictive lung disease, external hemorrhoids, dyslipidemia, obesity, hypertension
Impression:
#Acute respiratory failure due to on mechanical ventilation as of 07/31/2024
#Shock state, due to sedation and sepsis
#CHRISS now on CRRT (stared 08/01/2024)
#Streptococcal bacteremia (via blood cultures on 07/31/2024)
#Acute cardiogenic pulmonary edema
#Acute HFpEF exacerbation
#Fever with MSSA pneumonia with septic shock
#Leukocytosis
#Anemia
#Metabolic acidosis with increased anion gap due to severe CHRISS and lactic acidosis
#Lactic acidosis
#Transaminitis with hyperbilirubinemia due to shock liver
#Elevated troponin likely due to demand ischemia with type II AL from shock state � peaked at 0.796 on 07/31/2024
#A-fib with RVR
#Metastatic colorectal cancer with suspected lung metastasis (diagnosed via colonoscopy on 06/22/2024 with partially obstructing tumor seen in the rectum 4 cm from the anal verge, invasive low-grade colorectal adenocarcinoma)
#PET avid 2.2 cm right upper lobe nodule originally planned for robotic bronchoscopy on 08/03/2024 (will be deferred for now)
#HAN on auto CPAP
#History of psoriasis previously on Enbrel
#History of hepatitis A
#History of COVID-19 (04/03)
#Restrictive lung disease (suspected based on spirometry from 05/15/2021, however patient was coughing during testing and post-bronchodilator FVC was WNL at 84% predicted
Plan:
- Continue mechanical ventilation with daily SAT/SBT if clinically indicated - failed SBT today after 20 mins due to tachypnea
- prn nebulized bronchodilators - not currently bronchospastic
- Continue aspiration precautions
- Titrate FiO2 + PEEP to maintain SpO2 >90-94%
- Maintain plateau pressure <30
- Now that he is on CRRT, no need to continue with diuresis; continue to ultrafiltrate as BP tolerates
- Replete electrolytes with K>4, Mg>2 while on CRRT
- Echo from 07/31/2024 showed normal biventricular function with normal RV function with top normal RV size, with mildly elevated PASP at 38 mmHg
- Cardiology consulted - recs appreciated
- Continue broad spectrum ABx with ancef s/p vancomycin (07/31-08/01/2024) and s/p cefepime (07/31-08/01/2024); MRSA swab negative and sputum Cx from 07/31/2024 grew MSSA
- Follow-up sets x2 of surveillance blood cultures from 08/01/2024 + 08/03 (showing NGTD)
- Blood cultures from 07/31/2024 grew Streptococcus salivarius (melo-sensitive)
- ID consulted - recs appreciated
- trend WBC and monitor fever curve; Tx with tylenol but keep <2g per 24 hrs given his transaminitis
- Continue vasopressors and maintain MAP>65, SBP>90
- Trend sHCO3; blood gas shows pH>7.3 so no need for bicarb drip; continue to trend pH and pCO2 with serial blood gases
- Trend lactate until <2 mmol/L
- Troponin peaked on 07/31/2024 at 0.796; no longer need to continue trending at this time
- Trend LFTs and T. bili
- Renally dose all meds/Abx
- Trend sCr, UOP and continue strict I/O
- Maintain euglycemia with goal BG 140-180 with q6hr ISS
- Trend H/H and transfuse if needed to keep Hb>7g/dL; keep plt>20k, unless there is concern for bleeding then keep plt>50k
- Continue tube feeds with 5cc free water flush to minimize volume
- DVT ppx: Eliquis changed to heparin gtt now that he is on CRRT
Once patient is discharged (assuming that he survives this hospitalization), he will follow-up with us in the office again. He last saw us on 07/25/[address] Olguin.
Patient's , Adriana, as well as the patient's daughters x2 were both updated at bedside and were both present during rounds. All questions were answered and emotional support was provided.
Critical care statement: A total of 39 minutes of critical care time was provided for this patient today. This includes management of unstable vital signs, evaluation of the patient at bedside, reviewing the patient's pertinent medical records
including radiographs, microbiology, laboratory evaluations, and discussion with primary team, consultants, pharmacy, nutrition, physical therapy, case management, charge nurse, critical care nursing, and respiratory therapy.
Data:
CXR 07/31/2024: Prominent markings suggesting combination of interstitial and to a lesser extent alveolar acute pulmonary edema.
CXR 08/01/2024: Findings concerning for progressed moderate pulmonary edema. Developing bibasilar pneumonia cannot be excluded.
CXR 08/03/2024: Pulmonary edema, more pronounced compared to prior chest x-ray; Suspected bilateral pleural effusions, also increased.
CXR 08/04/2024: Moderate pulmonary edema, without significant change; small bilateral pleural effusions, also unchanged.
Subjective Dataa
Subjective Data
Date of Service:
Date of Service: August 04, 2024
Chief Complaint: Byproducts Supervisor Follow Up, Pulmonary Follow Up and Vent Management Follow Up
Subjective:
Patient seen and evaluated today at bedside. Remains intubated on AC/CMV at 18/500/40%/5, with PIP: 20 cmH2O, VTe 480 mL and breathing at 24 breaths/min. Currently on Levophed at 14mcg/min and vasopressin at 0.03 units/min. BP via A-line: 98/21,
heart rate 63 and saturating 98%. Remains on Precedex at 0.5mcg/kg/hr, fentanyl 25mcg/hr and heparin drip. Afebrile overnight. He is following commands although still lethargic and with generalized weakness. CXR this morning shows moderate
pulmonary edema without significant change from yesterday.
Review of Systems
General: Unobtainable - Sedation
Objective Data
Data Reviewed
Vital Signs / I&O / Oxygen:
Vital Signs
Temp Pulse Resp BP Pulse Ox
97.3 F 100 19 116/50 99
08/04/24 07:00 08/04/24 07:15 08/04/24 07:15 08/03/24 12:00 08/04/24 07:24
Intake and Output
08/03/24 08/04/24 08/05/24
06:59 06:59 06:59
Intake Total 3477.7 / 3678.6 3736.4 / 3890.1 153.7 / 153.7
Output Total 4427 / 4726 7619 / 7900 328 / 328
Balance -949.3 / -1047.4 -3882.6 / -4056.9 -174.3 / -174.3
SaO2 [A/C] 100
SaO2 99
Physical Exam
General: Respiratory Distress (negative), Comfortable, Chills (negative) and Other (Patient intubated, sedated and on vasopressors)
HEENT: Normocephalic, Anicteric and Other (ETT in place)
Cardiovascular: S1-S2 and Peripheral Edema (+1 lower extremity edema bilaterally)
Respiratory: Wheeze (negative), Crackles (Bilateral), Rhonchi (negative), Accessory Resp Muscle Use (negative), Stridor (negative) and ET Tube (Mechanical breath sounds heard bilaterally)
GI: Soft, Distended (Abdominal obesity) and Normal Bowel Sounds
Neurology: Tremors (negative), Other (Corneal reflexes bilaterally intact, strong gag/cough reflex) and Other (Pupils +1 mm bilaterally; sedated but following simple commands; generalized weakness)
Skin: Warm, Dry, Cyanosis (negative) and Jaundice (negative)
Labs/Micro/Reports
Lab Data
08/04/24 03:58
Laboratory Results
08/03/24 08/03/24 08/03/24
11:06 18:01 23:50
APTT 158.4 H* 152.6 H* 132.7 H
pH
pCO2
pO2
HCO3
O2 Delivery Level
08/04/24 08/04/24
03:58 05:56
APTT 144.8 H
pH 7.45
pCO2 31 L
pO2 148 H
HCO3 21.5
O2 Delivery Level
Microbiology
08/03/24 03:41 Blood/Venous Blood Culture - Preliminary
No Growth in 24 hours- Final report to follow
08/03/24 03:28 Blood/Venous Blood Culture - Preliminary
No Growth in 24 hours- Final report to follow
08/01/24 18:19 Blood/Venous Blood Culture - Preliminary
No Growth in 48 hours- Final report to follow
08/01/24 15:36 Blood/Venous Blood Culture - Preliminary
No Growth in 48 hours- Final report to follow
07/31/24 07:54 Blood/Venous Blood Culture - Final
Streptococcus salivarius
07/31/24 07:54 Blood/Venous Gram Stain - Final
07/31/24 07:54 Blood/Venous Blood Culture - Final
Streptococcus salivarius
07/31/24 07:54 Blood/Venous Gram Stain - Final
07/31/24 12:18 Endotracheal Respiratory Culture - Final
S aureus-Methicillin Sensitive
07/31/24 12:18 Endotracheal Gram Stain - Final
--- NOTE | 2024-08-04 08:00 | W.PN.HOSP.TC ---
Today's Communication/Plan
-
see plan
Assessment / Plan
Assessment / Plan
Mr. Иван Redd is a 64-year-old man with a past medical history of recently diagnosed colorectal cancer, persistent atrial fibrillation, essential hypertension who presents to the ER with dizziness. Patient reports feeling unwell for the last
2 days. He was recently started on metoprolol and Eliquis for atrial fibrillation. Overnight admission patient developed acute respiratory failure in setting of high fever with finding MSSA in blood and sputum; development of renal failure
requiring CRRT.
CXR 07/31/24
IMPRESSION:
Prominent markings suggesting combination of interstitial and to a lesser extent alveolar acute pulmonary edema.
TTE 07/31/24
CONCLUSIONS
Normal left ventricular chamber size. Normal left ventricular systolic
function. Left ventricular ejection fraction is 55-60%. Normal regional wall
motion. Mild concentric left ventricular hypertrophy.
Top normal right ventricular size. Normal right ventricular systolic function.
Mild aortic regurgitation.
Mild tricuspid regurgitation. Estimated pulmonary artery pressure of 38 mmHg
assuming a right atrial pressure of 8mmHg.
No prior study for comparison
Indications:
flash pulmonary edema
RUQ US 07/31
FINDINGS:
Transabdominal grayscale ultrasound of the abdomen was obtained.
The liver is normal.
There is normal flow in the portal and hepatic veins
The spleen is normal.
There is cholelithiasis with a 5 mm gallstone layering in the dependent position.
There is no thickening of gallbladder wall
There is no pericholecystic edema
There is no dilatation of the common or intrahepatic ducts.
The common duct measures 5.3 mm.
The kidneys are normal in size contour and echogenicity bilaterally.
There is no hydronephrosis.
The pancreas, upper abdominal aorta and upper inferior vena cava are normal
There is small right pleural effusion
Acute Respiratory Failure requiring intubation
MSSA Bacteremia and Pneumonia
Septic Shock
Acute Renal Failure
Hyperkalemia
Lactic Acidosis
Non-Ischemic Myocardial Injury
-s/p intubation morning of 07/31 during rapid response
-initial concern for flash pulmonary edema given acute SOB, CXR read and patient had been receiving IVF. IV lasix given without significant output and worsening renal function; renal consulted and patient initiated on CRRT on 08/01 given worsening
renal function, essentially no urine output and hyperkalemia
-08/01: culture results showing MSSA in Sputum and Blood
-TTE results above - no vegetation
-continue IV Cefazolin per ID
-continue IV Levophed/ VAsopressin. Phenylephrine added on 08/02/24 and now weaned off 08/03
-sedation; SAT/SBT; vent management per Payment Specialist
-Trop peaked at 0.749
-Payment Specialist Consult appreciated
-Cardiology consult appreciated
-Nephrology consult appreciated
Worsening Normocytic Anemia
-No evidence of active bleeding
Colorectal Adenocarcinoma with possible lung mets
-Schedule for lung biopsy as outpatient
-patient had not yet started chemotherapy
Paroxysmal Atrial Fibrillation
-Eliquis changed to heparin gtt
-appreciate Cardiology
Essential Hypertension
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
Hyperlipidemia
-Continue rosuvastatin
DVT proph: Heparin gtt
Code Status: Full Code
Total Critical Care Time 50 minutes. I was immediately available to the patient and staff. I personally examined, reviewed labs, diagnostic images/reports, interpretations, treatment plans, discussed patient care with other providers and family
or caregivers (if patient is unable to make decisions), entered orders as appropriate and documented the medical record.
Anticipated Discharge: > 48 hours
Subjective/Interval History
-
Date of Service: August 04, 2024
per RN, woke up a little more earlier with SAT
sedated for me
Objective Data
-
Labs:
Laboratory Results
08/03/24 08/03/24 08/04/24
20:12 23:50 02:15
WBC
Hgb
Hct
Plt Count
APTT 132.7 H
HCO3
Sodium 131 L 134 L
Potassium 3.9 4.0
Chloride 100 104
Carbon Dioxide 26 23
BUN 36 H 32 H
Creatinine 2.2 H 2.0 H
Glucose 177 H 123 H
Calcium 7.5 L 7.8 L
Total Bilirubin 5.3 H
AST 2585 H*
ALT 1402 H*
Alkaline Phosphatase 436 H
08/04/24 08/04/24 08/04/24
03:58 05:56 06:00
WBC 14.6 H
Hgb 10.7 L
Hct 32.0 L
Plt Count 141
APTT 144.8 H
HCO3 21.5
Sodium Cancelled
Potassium Cancelled
Chloride Cancelled
Carbon Dioxide Cancelled
BUN Cancelled
Creatinine Cancelled
Glucose Cancelled
Calcium Cancelled
Total Bilirubin Cancelled
AST Cancelled
ALT Cancelled
Alkaline Phosphatase Cancelled
08/04/24 08/04/24 08/04/24
08:00 12:00 14:00
WBC
Hgb
Hct
Plt Count
APTT Pending
HCO3
Sodium Pending Pending
Potassium Pending Pending
Chloride Pending Pending
Carbon Dioxide Pending Pending
BUN Pending Pending
Creatinine Pending Pending
Glucose Pending Pending
Calcium Pending Pending
Total Bilirubin
AST
ALT
Alkaline Phosphatase
Vital Signs:
Vital Signs
Temp Pulse Resp BP Pulse Ox
97.3 F 100 19 116/50 99
08/04/24 07:00 08/04/24 07:15 08/04/24 07:15 08/03/24 12:00 08/04/24 07:24
I&O
08/03/24 08/04/24 08/05/24
06:59 06:59 06:59
Intake Total 3477.7 / 3678.6 3736.4 / 3890.1 153.7 / 153.7
Output Total 4427 / 4726 7619 / 7944 328 / 328
Balance -949.3 / -1047.4 -3882.6 / -4056.9 -174.3 / -174.3
Review of Systems
-
History Source: Patient
All other systems: Reviewed and negative
Physical Exam
-
General: Intubated
HEENT: PERRLA
Respiratory: Negative Wheezes
Cardiac: Regular Rhythm and S1/S2
GI: Soft and Nontender
Musculoskeletal: No Edema
Skin: Warm and Dry; Negative Rash
Neuro: Sedated
Psych: Calm
Data Reviewed
-
Diagnostic Radiology: Report Reviewed by me
Labs: Labs Reviewed by me
[2024-08-04 08:20] LABS: Ionized Calcium 1.11 mMOL/L (1.15-1.33)
--- NOTE | 2024-08-04 08:34 | W.PN.NEPH.PH ---
Today's Communication / Plan
-
Continue CRRT
Assessment/Plan
-
64-year-old man with recently diagnosed colorectal cancer with possible lung metastasis and recent diagnosis of atrial fibrillation who presented with lightheadedness and dizziness after starting oral metoprolol as an outpatient and presented to
[facility] emergency department. He presented in acute kidney injury admitted to the floors upgraded to the ICU for increased work of breathing ultimately intubated in the ICU with hyperkalemia.
Patient is critically ill on pressor support essentially anuric.
Positive blood cultures pending organism. Staph aureus sputum culture.
Renal consult for acute kidney injury and hyperkalemia
Impression.
Acute kidney injury and hyperkalemia secondary to septic shock.
Colorectal cancer newly diagnosed June 2024 with possible lung metastasis
Atrial fibrillation on oral anticoagulation
VDRF
Bacteremia/sepsis
Plan.
continue CRRT
net UF 200ml/hr
all indices would suggest that he is making improvements
wean pressors as allowed, attempt to remove vasopressin today
critical care time 31 minutes
-
-
Date of Service: August 04, 2024
CC / HPI / ROS
-
Chief Complaint:
Septic shock
History of Present Illness:
critically ill in ICU on vent/pressors
BP stable
CRRT running with net negative I/O
K controlled
LFTs improving
Lactate improving
I's and O's net negative
Anuric
Review of Systems:.
sedated on vent
Labs
-
Labs:
WBC 14.6 10^3/uL (4.8-10.8) H 08/04/24 03:58
RBC 3.98 10^6/uL (4.70-6.10) L 08/04/24 03:58
Hgb 10.7 g/dL (13.0-18.0) L 08/04/24 03:58
Hct 32.0 % (39.0-52.0) L 08/04/24 03:58
Plt Count 141 10^3/uL (130-400) 08/04/24 03:58
eGFR Cancelled 08/04/24 06:00
Ihk-A-Fzpdyswjvhu Pept 3210 pg/ml 07/31/24 07:54
Albumin Cancelled 08/04/24 06:00
Physical Exam
-
Vital Signs:
Vital Signs
Temp Pulse Resp BP Pulse Ox
97.3 F 100 19 116/50 100
08/04/24 07:00 08/04/24 07:15 08/04/24 07:15 08/03/24 12:00 08/04/24 08:27
Cardiovascular:: Regular rate and rhythm
Respiratory:: Bilateral: Coarse
Lung Excursion:: Normal
Abdomen:: Nontender and Soft
Bowel Sounds:: Normal
Extremity Edema:: +3: Bilateral:
--- NOTE | 2024-08-04 08:37 | W.PN.UPDATE ---
Update Note
Progress Note Update
CRRT in progress. current filter ~27hr remaining.
2K bath, 200Qb
UF net 200ml/hr, tolerated
on systemic heparin gtt for afib
--- NOTE | 2024-08-04 09:09 | W.PN.ID1 ---
Date of Service
Date of Service: August 04, 2024
Today's Communication
Continue cefazolin.
Assessment / Plan
S aureus (MSSA) Pneumonia
Strep salivarius bacteremia x 2 sets drawn at the same time
Septic shock, pressors reduced
CHRISS on CRRT
Class III Obesity
Colorectal Adenocarcinoma - not yet on treatment
Psoriatic Arthritis - currently off of Enbrel since ~05/03
- Repeat blood cultures in progress no growth to date
- MSSA from sputum
- TTE on 07/31 without vegetations - may consider repeat if bacteremia is persistent
- c/w cefazolin - dosed for CRRT- at increased the dose of cefazolin to 2 gm IV q8 hours, plan to get level on Tuesday which will result tuesday
follow pressor requirements, wbc. Patient remains critically ill.
Chief Complaint
-: Pneumonia (S aureus) and Bacteremia (streptococcus)
Subjective / Review of Systems
Remains on vent.
Vital Signs / Physical Exam
Vital Signs
Vital Signs
Temp Pulse Resp BP Pulse Ox
97.3 F 100 19 116/50 100
08/04/24 07:00 08/04/24 07:15 08/04/24 07:15 08/03/24 12:00 08/04/24 08:27
Physical Exam
Constitutional: Acutely Ill
Cardiovascular: Regular Rate and S1/S2
Pulmonary: Symmetric
Gastrointestinal: Soft, Non Tender, Non Distended and Normal Bowel Sounds
Extremities: Edema
Neurological: Awake
Lines: Other (HD Cath (no erythema, warmth, tenderness, drainage ) and PICC, Midline, mike - no erythema, warmth, tenderness, drainage )
Objective Data
Lab Data
Lab Results
08/04/24 03:58
PT 19.2 Sec (11.4-14.6) H 07/31/24 17:56
INR 1.59 07/31/24 17:56
APTT Cancelled 08/04/24 12:00
Estimated Creat Clear Cancelled 08/04/24 08:02
Lactic Acid 2.3 mmol/L (0.7-2.0) H 08/03/24 14:03
Total Bilirubin Cancelled 08/04/24 06:00
AST Cancelled 08/04/24 06:00
ALT Cancelled 08/04/24 06:00
Alkaline Phosphatase Cancelled 08/04/24 06:00
Most recent labs reviewed.
Micro Results:
08/03/24 03:41 Blood Culture - Preliminary
Blood/Venous No Growth in 24 hours- Final report to follow
08/03/24 03:28 Blood Culture - Preliminary
Blood/Venous No Growth in 24 hours- Final report to follow
08/01/24 18:19 Blood Culture - Preliminary
Blood/Venous No Growth in 48 hours- Final report to follow
08/01/24 15:36 Blood Culture - Preliminary
Blood/Venous No Growth in 48 hours- Final report to follow
07/31/24 07:54 Blood Culture - Final
Blood/Venous Streptococcus salivarius
Gram Stain - Final
07/31/24 07:54 Blood Culture - Final
Blood/Venous Streptococcus salivarius
Gram Stain - Final
07/31/24 12:18 Respiratory Culture - Final
Endotracheal S aureus-Methicillin Sensitive
Gram Stain - Final
07/31/24 11:49 Legionella Urinary Antigen - Final
Urine Negative for Legionella pneumophila Serogroup 1 antigen.
A negative result does not rule out the possiblity of
Legionella infection due to other serogroups or species of
Legionella. Clinical correlation is recommended.
Streptococcus pneumoniae Antigen (M - Final
Negative for Streptococcus pneumoniae antigen.
A negative result does not exclude infection with
Streptococcus pneumoniae. Clinical correlation is
recommended.
07/31/24 12:18 Nasal Screen MRSA (PCR) - Final
Nose MRSA not detected - performed by PCR methodology.
07/31/24 08:10 Influenza Types A & B (KHANG) - Final
Nasal Swab Negative for Influenza A & B, NAAT
Negative results must be combined with clinical observations
and patient history.
Nucleic Acid Amplification test (NAAT)performed on the
[employer]ial[employer] platform.
08/04/24 CXR: Moderate pulmonary edema, without significant change.
--- NOTE | 2024-08-04 09:40 | RESPNOTE ---
Respiratory: patient weaned for less than twenty minutes RR increased to 40. Placed patient back on previous settings A/C CMV.
--- NOTE | 2024-08-04 09:41 | PTCARENOTE ---
fentanyl on hold and precedex gtt decreased for wean. wean 5/5 40%, pt toerated wean for less than 20minutes, pt tachypneic.
[2024-08-04 09:52] LABS: Blood Urea Nitrogen 29 mg/dl (9-20); Calcium 8.3 mg/dl (8.4-10.2); Carbon Dioxide 21 mmol/L (22-30); Chloride 103 mmol/L (98-107); Estimated Creatinine Clearance 52 ml/min; Glucose 198 mg/dl (70-99); Magnesium 2.2 mg/dl (1.6-2.3); Phosphorus 3.3 mg/dl (2.5-4.5); Potassium 3.5 mmol/L (3.5-5.1); Sodium 132 mmol/L (135-145); eGFR 34.93
[2024-08-04] MEDS: KCL 100 IV (10:07)
[2024-08-04 11:27] LABS: Glucose - Point of Care 151 mg/dl (70-99)
--- NOTE | 2024-08-04 12:09 | PTCARENOTE ---
pt in sb to nsr, continues on same gtts. pt more alert and responding appropriately. crrt continues. no changes in assessment
[2024-08-04] MEDS: RFP-400 HD Soln (K+ 2 mEq/L) 15000 ML CRRT-IRR (12:56)
[2024-08-04] MEDS: SUBLIMAZE 25 MCG IV ×2 (13:23→14:24)
[2024-08-04 14:27] LABS: Ionized Calcium 1.15 mMOL/L (1.15-1.33)
[2024-08-04 14:32] LABS: APTT 118.7 Sec (23.4-35.0)
--- NOTE | 2024-08-04 14:37 | PTCARENOTE ---
pt suddenly became agitated, restless, thrashing and kicking in bed, unable to redirect. fentanyl and versed given as per order per Dr. Ball. increased fentanyl gtt and precedex gtt per protocol. pt more relaxed, improved cpot and rass.
updated.
[2024-08-04 14:40] LABS: Blood Urea Nitrogen 29 mg/dl (9-20); Calcium 8.1 mg/dl (8.4-10.2); Carbon Dioxide 20 mmol/L (22-30); Chloride 105 mmol/L (98-107); Estimated Creatinine Clearance 52 ml/min; Glucose 138 mg/dl (70-99); Magnesium 2.3 mg/dl (1.6-2.3); Phosphorus 3.3 mg/dl (2.5-4.5); Potassium 3.9 mmol/L (3.5-5.1); Sodium 135 mmol/L (135-145); eGFR 34.93
[2024-08-04] MEDS: VERSED 2 MG IV (14:58)
--- NOTE | 2024-08-04 16:29 | PTCARENOTE ---
pt cpot 0 and rass-2, resting comfortably at this time. updated. assessment unchanged. crrt continues
--- NOTE | 2024-08-04 17:25 | PTCARENOTE ---
Assumed care of pt. approx 1630.
Pt. remains on CVVHD, Intubated/Sedated, Double pressed on x2 norepi and vasopressin.
CVVHD running w/o downtime or issues, 2k bath, -200 pull.
Arterial line correlating with NIBP within 10 pt. difference, all titration metrics made off of arterial line metrics for vasoactive medications.
See titration flowsheets for more details.
[2024-08-04 17:32] LABS: Glucose - Point of Care 117 mg/dl (70-99)
[2024-08-04 20:17] LABS: Ionized Calcium 1.18 mMOL/L (1.15-1.33)
[2024-08-04 20:31] LABS: APTT 139.3 Sec (23.4-35.0)
[2024-08-04 20:33] LABS: Blood Urea Nitrogen 27 mg/dl (9-20); Calcium 8.5 mg/dl (8.4-10.2); Carbon Dioxide 20 mmol/L (22-30); Chloride 103 mmol/L (98-107); Estimated Creatinine Clearance 52 ml/min; Glucose 163 mg/dl (70-99); Magnesium 2.2 mg/dl (1.6-2.3); Phosphorus 3.7 mg/dl (2.5-4.5); Potassium 3.9 mmol/L (3.5-5.1); Sodium 134 mmol/L (135-145); eGFR 34.93
[2024-08-04] MEDS: COLACE LIQUID 100 MG TUBE (23:06)
[2024-08-04] MEDS: MIRALAX 17 GRAMS TUBE (23:06)
[2024-08-04 23:45] LABS: Glucose - Point of Care 93 mg/dl (70-99)
--- NOTE | 2024-08-04 23:47 | PTCARENOTE ---
Heparin drip decreased per protocol remains supratherapeutic.
CVVHD running w.o downtime or issues.
Pt. having increased agitation, PRN Ativan ordered.
Unable to wean from any vasopressors at this time.
[2024-08-05] VITALS (10 sets, daily range): BP systolic 80–130; BP diastolic 39–47; BMI 42.2
[2024-08-05] MEDS: PRECEDEX 100 IV ×4 (02:10→17:54)
[2024-08-05] MEDS: SUBLIMAZE 100 IV (02:11)
[2024-08-05] MEDS: RFP-400 HD Soln (K+ 2 mEq/L) 5000 ML CRRT-IRR (02:11)
[2024-08-05 02:42] LABS: B.E. -4.2 mmol/L; HCO3 19.8 mmol/L (21-28); O2 Saturation % 99.5 % (94-98); PCO2 32 mmHg (35-48); PO2 144 mmHg (83-108)
[2024-08-05 02:45] LABS: Ionized Calcium 1.25 mMOL/L (1.15-1.33)
[2024-08-05 02:55] LABS: Hematocrit 32.9 % (39.0-52.0); Hemoglobin 10.4 g/dL (13.0-18.0); Mean Corp Hgb Conc. 31.6 g/dL (33.0-37.0); Mean Corpuscular Hgb 26.7 pg (27.0-31.0); Mean Corpuscular Volume 84.6 fL (80.0-94.0); Mean Platelet Volume 10.9 fL (7.4-10.4); Platelet Count 138 10^3/uL (130-400); Red Blood Cell Count 3.89 10^6/uL (4.70-6.10); Red Cell Dist. Width 15.9 % (11.5-14.5); White Blood Cell Count 18.5 10^3/uL (4.8-10.8)
[2024-08-05 02:56] LABS: APTT 110.5 Sec (23.4-35.0)
[2024-08-05 02:59] LABS: Lactic Acid 3.2 mmol/L (0.7-2.0)
[2024-08-05 03:07] LABS: ALT (SGPT) 403 U/L (0-50); Albumin 2.4 g/dl (3.5-5.0); Alkaline Phosphatase 377 U/L (38-126); Blood Urea Nitrogen 29 mg/dl (9-20); Calcium 8.7 mg/dl (8.4-10.2); Carbon Dioxide 20 mmol/L (22-30); Chloride 104 mmol/L (98-107); Direct Bilirubin 3.9 mg/dl (0.0-0.4); Estimated Creatinine Clearance 49 ml/min; Glucose 182 mg/dl (70-99); Magnesium 2.3 mg/dl (1.6-2.3); Phosphorus 3.8 mg/dl (2.5-4.5); Potassium 3.5 mmol/L (3.5-5.1); Sodium 134 mmol/L (135-145); Total Bilirubin 4.7 mg/dl (0.2-1.3); eGFR 33.04
[2024-08-05 03:44] LABS: AST (SGOT) 1448 U/L (17-59)
[2024-08-05] MEDS: ANCEF 10 IV ×3 (04:05→20:33)
--- NOTE | 2024-08-05 04:59 | PTCARENOTE ---
CVVHD filter changed. Excess fluid removed from lost hour.
No further change in pt. assessment.
Remains on Norepi + Vasopressin.
[2024-08-05] MEDS: NOVOLOG FLEXPEN-MODERATE RESISTANCE 1 UNITS SC (06:15)
[2024-08-05 06:25] LABS: Glucose - Point of Care 181 mg/dl (70-99)
--- NOTE | 2024-08-05 06:33 | W.PN.CARDCBS ---
Today's Communication / Plan
-
Continue hemodynamic support with IV pressors as needed for bp support.
Remains on Levophed, vasopressin for bp support.
Given hx PAFib with elevated HR would try to wean levophed first if possible
Remains in sinus with good HR control.
Possible decompensated heart failure with preserved ejection fraction presenting with rapid development of pulmonary edema
Poor urine output with attempted IV Lasix diuresis in the setting of acute kidney injury and rising creatinine
Receiving CRRT
Cont volume control as per renal.
Paroxysmal Atrial fibrillation recently converted to sinus rhythm (this hospital stay) and now back in sinus
Cont IV Heparin anticoagulation for thromboembolic risk reduction (CHADSVASc = 2 with CHF, HTN) + higher thrombotic risk with malignancy
Eventual AV kalin nirav for rate control as BP tolerates however with pressor therapy would hold Toprol for now.
No amiodarone given hepatic injury
HLD
Hold statin with elevated LFTs.
Impression / Plan
-
.
Primary Resident Care Coordinator: Dr. Hiren Vicente
Impression:
MSOF (resp failure, CHF, liver failure, renal failure)
Hypotension requiring pressors
CHRISS (likely as a consequence of hypotension, possibly from septic shock versus cardiogenic shock or combination of both)
Acute hypoxic respiratory failure requiring intubation 07/31/24
Liver failure (likely as a consequence of hypotension, possibly from septic shock versus cardiogenic shock or combination of both)
Fever
Sepsis, s aureus PNA, possible S aureus bacteremia
Initial concern for flash pulm edema
Recent diagnosis paroxysmal atrial fibrillation with recurrent AFib with RVR
Colorectal cancer, suspected metastatic, diagnosed 06/22/2024, not yet started on therapy
Pulmonary nodule with concern for metastasis, scheduled for lung biopsy 08/03
Hypertension
Hyperlipidemia
Obstructive sleep apnea
Obesity
ECHO 07/31/24: Normal LV function. LVEF is 55-60%. No wall motion abnormality. Top normal right ventricular size with normal RV function. Mild AI and mild TR. Estimated pulmonary artery pressure of 38 mmHg
Plan:
He remains critically ill with MSOF (resp failure, CHF, liver failure, renal failure), shock, sepsis, lactic acidosis. He remains pressor dependent.
Continue hemodynamic support with IV pressors as needed for bp support.
Remains on Levophed, vasopressin for bp support.
Given hx PAFib with elevated HR would try to wean levophed first if possible
Remains in sinus with good HR control.
Possible decompensated heart failure with preserved ejection fraction presenting with rapid development of pulmonary edema
Poor urine output with attempted IV Lasix diuresis in the setting of acute kidney injury and rising creatinine
Receiving CRRT
Cont volume control as per renal.
Paroxysmal Atrial fibrillation recently converted to sinus rhythm (this hospital stay) and now back in sinus
Cont IV Heparin anticoagulation for thromboembolic risk reduction (CHADSVASc = 2 with CHF, HTN) + higher thrombotic risk with malignancy
Eventual AV kalin nirav for rate control as BP tolerates however with pressor therapy would hold Toprol for now.
No amiodarone given hepatic injury
HLD
Hold statin with elevated LFTs.
LFTs slowly improving
CCT: 31 min
HPI:
64-year-old man with recently diagnosed colorectal cancer with possible lung metastasis and recent diagnosis of atrial fibrillation who presented with lightheadedness and dizziness after starting oral metoprolol as an outpatient and presented to
[facility] emergency department for further management. After being found to have CHRISS and anemia he was admitted for further management. Unfortunately developed increased work of breathing this morning, became tachycardic and was found to be
febrile. Did not clinically improve with BiPAP and he was subsequently intubated and transferred to the medical ICU for further management. Currently being treated with broad-spectrum antibiotics and requiring pressor support.
Seen in the outpatient cardiology office 07/26/24 and was in AF with a rapid ventricular rate of 130 bpm. At that visit he had yet to initiate Toprol-XL which was ordered by his primary care physician. At that office visit he agreed to initiate
Toprol-XL 25 mg daily for rate control with plan to defer recommendations regarding rhythm control until he was adequately anticoagulated (atrial fibrillation of unknown duration) and to allow for intermittent interruption of anticoagulation for
planned upcoming procedures regarding his recently diagnosed colorectal cancer with likely pulmonary metastases (bronchoscopy, port placement, colorectal surgery). Eliquis 5 mg twice daily was also initiated on 07/26/24..
Cardiology is consulted for possible heart failure as a cause of his respiratory decompensation. proBNP was mildly elevated (3210), it is possible there is some component of heart failure with preserved ejection fraction.
On presentation to the emergency department 07/30/24, he was in atrial fibrillation with reasonably controlled ventricular rate of 105 bpm. EKG of July 31, 2024 finds sinus rhythm at 77 bpm.
Progress Note - Resident Care Coordinator
Subjective
Date of Service: August 05, 2024
Patient seen and examined. Sedated on vent.
Objective
Labs:
08/05/24 02:16
Labs
Hgb 10.4 g/dL (13.0-18.0) L 08/05/24 02:16
Hct 32.9 % (39.0-52.0) L 08/05/24 02:16
Plt Count 138 10^3/uL (130-400) 08/05/24 02:16
PT 19.2 Sec (11.4-14.6) H 07/31/24 17:56
INR 1.59 07/31/24 17:56
APTT 110.5 Sec (23.4-35.0) H 08/05/24 02:16
Sodium 134 mmol/L (135-145) L 08/05/24 02:16
Sodium Cancelled 08/05/24 02:16
Potassium 3.5 mmol/L (3.5-5.1) 08/05/24 02:16
Potassium Cancelled 08/05/24 02:16
BUN 29 mg/dl (9-20) H 08/05/24 02:16
BUN Cancelled 08/05/24 02:16
Creatinine 2.2 mg/dL (0.7-1.3) H 08/05/24 02:16
Creatinine Cancelled 08/05/24 02:16
Glucose 182 mg/dl (70-99) H 08/05/24 02:16
Glucose Cancelled 08/05/24 02:16
Vital Signs and I&O:
Vital Signs
Temp Pulse Resp BP Pulse Ox
97.6 F 57 19 121/40 98
08/05/24 03:24 08/05/24 04:45 08/05/24 04:45 08/05/24 00:00 08/05/24 04:45
Vital Signs
Temp Pulse Resp BP Pulse Ox
97.6 F 57 19 121/40 98
08/05/24 03:24 08/05/24 04:45 08/05/24 04:45 08/05/24 00:00 08/05/24 04:45
Intake & Output
08/02/24 08/03/24 08/04/24 08/05/24
06:59 06:59 06:59 06:59
Intake Total 4670.9 / 4813.1 3477.7 / 3678.6 3736.4 / 3890.1 3849.3 / 3849.3
Output Total 2284 / 2380 4427 / 4726 7619 / 7947 8042 / 8042
Balance 2386.9 / 2433.1 -949.3 / -1047.4 -3882.6 / -4056.9 -4192.7 / -4192.7
Physical Exam
Physical Exam
General: sedated on vent
Neck: Negative JVD
Heart: Regular, Negative S3 positive S1/S2, Negative S4, No murmur
Lungs: Negative wheezes/rales/rhonchi
Abd: Morbid obesity. Positive BS, NT/ND, neg rebound/rigidity/guarding
Ext: Negative cyanosis/clubbing/edema
Neuro: nonfocal
[2024-08-05] MEDS: COLACE LIQUID 100 MG TUBE ×2 (06:48→20:33)
[2024-08-05] MEDS: MIRALAX 17 GRAMS TUBE ×2 (06:48→20:33)
[2024-08-05] MEDS: PROTONIX IV 40 MG IV (06:48)
[2024-08-05] MEDS: NSS (PRESERVATIVE FREE) 10 ML IV (06:48)
--- NOTE | 2024-08-05 07:14 | PTCARENOTE ---
pt received from previous rn- ett to vent- see settings as charted. pt remains on precedex and fentanyl for sedation, opens eyes to name, follows commands. levophed and vaso continue to maintain systolic >90. right radial mike zeroed and
functioning. right picc and right ij hd cath c/d/i. crrt continues with 2L therapy fluid rate and removing -200cc an hour- pt tolerating. pt remains oliguric. tf continue- pt tolerating. am care provided. nsr to sinus sinai on monitor. all safety
precautions in place.
--- NOTE | 2024-08-05 07:30 | PTCARENOTE ---
pt received from previous rn- ett to vent- see settings as charted. pt remains on precedex and fentanyl for sedation, opens eyes to name. levophed and vaso continue to maintain systolic >90. right radial mike zeroed and functioning. right picc and
right ij hd cath c/d/i. crrt continues with 2L therapy fluid rate and removing -200cc an hour- pt tolerating. pt remains oliguric. tf continue- pt tolerating. am care provided. nsr to sinus [facility] on monitor. all safety precautions in place.
--- NOTE | 2024-08-05 08:03 | W.PN.INTV ---
Addendum entered and electronically signed by Eyad Ball MD 08/05/24 14:16:
In regards to the Seroquel, will need to continue trending QTc as last EKG on 08/02/2024 showed a QTc of 504 ms. Prior EKG however on 07/31/2024 showed a QTc of 445 ms, and even as low as 436ms that same day. Continue to monitor and adjust Seroquel
as needed.
Original Note:
Today's Communication / Plan
Recommendations
CRRT
Antibiotics per ID
Trend lactate until <2mmol/L
Mechanical ventilation; daily SAT/SBT
Seems to be having agitation during awakening and breathing trials --> start low dose seroquel to help with this
Titrate FiO2 + PEEP to keep SpO2 >90-94%
Guarded prognosis at this time
Full Code - discussed code status with the on 08/03 but she wants to continue with full medical management and keep him full code for now - this will be an ongoing discussion
Assessment
-
Assessment: 64-year-old M with PMHx of colorectal cancer, HAN on CPAP, A fib on Eliquis and pulmonary nodule in RUL who p/w dizziness and lethargy x 1-2 days. Hypotensive in triage to 80s/40s, with heart rate 108, and saturating 100% on room air.
Initial temperature 97.6 �F. Initial labs showed Hb 9, sodium 132, creatinine 1.4, lactate 4, AST 98, ALT 115, ALP 230, and COVID-19 antigen negative. Patient given 1 L NS 0.9% in the ER and was admitted to telemetry with CHRISS. Earlier this
morning, he was increasingly tachypneic, hypoxic on room air to the mid 80s, placed onto nonrebreather with saturations improving to 92%, tachycardic with A-fib with RVR and hypertensive with a fever. Lower extremities and trunk became mottled and
rapid response called. Placed onto BiPAP with no improvement in saturations. Stat CXR done showing evidence of pulmonary edema. He was transferred to the ICU and attempted NIV with no success, and he was intubated emergently. Pharmacy Services Representative service
is now consulted for additional management/recommendations.
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
restrictive lung disease, external hemorrhoids, dyslipidemia, obesity, hypertension
Impression:
#Acute respiratory failure due to on mechanical ventilation as of 07/31/2024
#Shock state, due to sedation and sepsis
#CHRISS now on CRRT (stared 08/01/2024)
#Streptococcal bacteremia (via blood cultures on 07/31/2024)
#Acute cardiogenic pulmonary edema
#Acute HFpEF exacerbation
#Fever with MSSA pneumonia with septic shock
#Leukocytosis
#Anemia
#Metabolic acidosis with increased anion gap due to severe CHRISS and lactic acidosis
#Lactic acidosis
#Transaminitis with hyperbilirubinemia due to shock liver
#Elevated troponin likely due to demand ischemia with type II CT from shock state � peaked at 0.796 on 07/31/2024
#A-fib with RVR
#Metastatic colorectal cancer with suspected lung metastasis (diagnosed via colonoscopy on 06/22/2024 with partially obstructing tumor seen in the rectum 4 cm from the anal verge, invasive low-grade colorectal adenocarcinoma)
#PET avid 2.2 cm right upper lobe nodule originally planned for robotic bronchoscopy on 08/03/2024 (will be deferred for now)
#HAN on auto CPAP
#History of psoriasis previously on Enbrel
#History of hepatitis A
#History of COVID-19 (04/03)
#Restrictive lung disease (suspected based on spirometry from 05/15/2021, however patient was coughing during testing and post-bronchodilator FVC was WNL at 84% predicted
Plan:
- Continue mechanical ventilation with daily SAT/SBT if clinically indicated - failed SBT today due to agitation and tachypnea (failed 08/04 as well due to tachypnea)
- prn nebulized bronchodilators - not currently bronchospastic
- Continue aspiration precautions
- Titrate FiO2 + PEEP to maintain SpO2 >90-94%
- Maintain plateau pressure <30
- Now that he is on CRRT, no need to continue with diuresis; continue to ultrafiltrate as BP tolerates
- Replete electrolytes with K>4, Mg>2 while on CRRT
- Echo from 07/31/2024 showed normal biventricular function with normal RV function with top normal RV size, with mildly elevated PASP at 38 mmHg
- Cardiology consulted - recs appreciated
- Continue broad spectrum ABx with ancef s/p vancomycin (07/31-08/01/2024) and s/p cefepime (07/31-08/01/2024); MRSA swab negative and sputum Cx from 07/31/2024 grew MSSA
- Follow-up sets x2 of surveillance blood cultures from 08/01/2024 + 08/03 (showing NGTD)
- Blood cultures from 07/31/2024 grew Streptococcus salivarius (melo-sensitive)
- ID consulted - recs appreciated
- trend WBC and monitor fever curve; Tx with tylenol but keep <2g per 24 hrs given his transaminitis
- Continue vasopressors and maintain MAP>65, SBP>90
- Trend sHCO3; blood gas shows pH>7.3 so no need for bicarb drip; continue to trend pH and pCO2 with serial blood gases
- Trend lactate until <2 mmol/L
- Troponin peaked on 07/31/2024 at 0.796; no longer need to continue trending at this time
- Trend LFTs and T. bili
- Renally dose all meds/Abx
- Trend sCr, UOP and continue strict I/O
- Maintain euglycemia with goal BG 140-180 with q6hr ISS
- Trend H/H and transfuse if needed to keep Hb>7g/dL; keep plt>20k, unless there is concern for bleeding then keep plt>50k
- Continue tube feeds with 5cc free water flush to minimize volume
- DVT ppx: Eliquis changed to heparin gtt now that he is on CRRT
- Guarded prognosis
Once patient is discharged (assuming that he survives this hospitalization), he will follow-up with us in the office again. He last saw us on 07/25/[address] Olguin.
Patient's , Adriana was updated at bedside. All questions were answered and emotional support was provided.
Critical care statement: A total of 46 minutes of critical care time was provided for this patient today. This includes management of unstable vital signs, evaluation of the patient at bedside, reviewing the patient's pertinent medical records
including radiographs, microbiology, laboratory evaluations, and discussion with primary team, consultants, pharmacy, nutrition, physical therapy, case management, charge nurse, critical care nursing, and respiratory therapy.
Data:
CXR 07/31/2024: Prominent markings suggesting combination of interstitial and to a lesser extent alveolar acute pulmonary edema.
CXR 08/01/2024: Findings concerning for progressed moderate pulmonary edema. Developing bibasilar pneumonia cannot be excluded.
CXR 08/03/2024: Pulmonary edema, more pronounced compared to prior chest x-ray; Suspected bilateral pleural effusions, also increased.
CXR 08/04/2024: Moderate pulmonary edema, without significant change; small bilateral pleural effusions, also unchanged.
CXR 08/05/2024: Stable mild CHF. Stable small to moderate bilateral pleural effusions with associated consolidation.
Subjective Dataa
Subjective Data
Date of Service:
Date of Service: August 05, 2024
Chief Complaint: Pharmacy Services Representative Follow Up and Vent Management Follow Up
Subjective:
Patient seen and evaluated today at bedside. Following commands this morning but lethargic. Vomited this morning which was comprised of tube feeds. Currently intubated on AC/CMV at 18/500/40%/5, with PIP: 20 cmH2O, VTe 429 cc and breathing at 19
breaths/min. Currently on Levophed at 22mcg/min, vasopressin 0.03 units/min. Sedated on Precedex at 0.6mcg/kg/hr and fentanyl at 50mcg/hr. Heart rate 69, BP 102/19 via A-line, BP 112/39 via NIBP and SpO2: 98%. CXR is slightly improved today.
, Adriana, at bedside and all questions were answered.
Review of Systems
General: Unobtainable - Sedation
Objective Data
Data Reviewed
Vital Signs / I&O / Oxygen:
Vital Signs
Temp Pulse Resp BP Pulse Ox
97.1 F 63 18 114/41 96
08/05/24 07:00 08/05/24 09:00 08/05/24 09:00 08/05/24 07:47 08/05/24 09:00
Intake and Output
08/04/24 08/05/24 08/06/24
06:59 06:59 06:59
Intake Total 3736.4 / 3890.1 3849.3 / 4093.8 549.0 / 549.0
Output Total 7619 / 7947 8042 / 8375 1091 / 1091
Balance -3882.6 / -4056.9 -4192.7 / -4281.2 -542.0 / -542.0
SaO2 [A/C] 100
SaO2 96
Physical Exam
General: Respiratory Distress (negative), Comfortable, Chills (negative) and Other (Patient intubated, sedated and on vasopressors)
HEENT: Normocephalic, Anicteric and Other (ETT in place)
Cardiovascular: S1-S2 and Peripheral Edema (+1 lower extremity edema bilaterally)
Respiratory: Wheeze (negative), Crackles (Bilateral), Rhonchi (negative), Accessory Resp Muscle Use (negative), Stridor (negative) and ET Tube (Mechanical breath sounds heard bilaterally)
GI: Soft, Distended (Abdominal obesity) and Normal Bowel Sounds
Neurology: Tremors (negative), Other (Corneal reflexes bilaterally intact, strong gag/cough reflex) and Other (Pupils +1 mm bilaterally; sedated but following simple commands; generalized weakness)
Skin: Warm, Dry, Cyanosis (negative) and Jaundice (negative)
Labs/Micro/Reports
Lab Data
08/05/24 02:16
Laboratory Results
08/04/24 08/04/24 08/05/24
14:04 20:05 02:16
APTT 118.7 H 139.3 H 110.5 H
pH 7.40
pCO2 32 L
pO2 144 H
HCO3 19.8 L
O2 Delivery Level
08/05/24
08:14
APTT 119.7 H
pH
pCO2
pO2
HCO3
O2 Delivery Level
Microbiology
08/03/24 03:28 Blood/Venous Blood Culture - Preliminary
No Growth in 48 hours- Final report to follow
08/03/24 03:41 Blood/Venous Blood Culture - Preliminary
No Growth in 48 hours- Final report to follow
08/01/24 18:19 Blood/Venous Blood Culture - Preliminary
No Growth in 72 hours- Final report to follow
08/01/24 15:36 Blood/Venous Blood Culture - Preliminary
No Growth in 72 hours- Final report to follow
07/31/24 07:54 Blood/Venous Blood Culture - Final
Streptococcus salivarius
07/31/24 07:54 Blood/Venous Gram Stain - Final
07/31/24 07:54 Blood/Venous Blood Culture - Final
Streptococcus salivarius
07/31/24 07:54 Blood/Venous Gram Stain - Final
07/31/24 12:18 Endotracheal Respiratory Culture - Final
S aureus-Methicillin Sensitive
07/31/24 12:18 Endotracheal Gram Stain - Final
--- NOTE | 2024-08-05 08:06 | W.PN.HOSP.TC ---
Addendum entered and electronically signed by Erin Silva MD 08/05/24 13:02:
Shock Liver
-liver enzymes improving daily
Original Note:
Today's Communication/Plan
-
see plan
Assessment / Plan
Assessment / Plan
Mr. Иван Redd is a 64-year-old man with a past medical history of recently diagnosed colorectal cancer, persistent atrial fibrillation, essential hypertension who presents to the ER with dizziness. Patient reports feeling unwell for the last
2 days. He was recently started on metoprolol and Eliquis for atrial fibrillation. Overnight admission patient developed acute respiratory failure in setting of high fever with finding MSSA in blood and sputum; development of renal failure
requiring CRRT.
CXR 07/31/24
IMPRESSION:
Prominent markings suggesting combination of interstitial and to a lesser extent alveolar acute pulmonary edema.
TTE 07/31/24
CONCLUSIONS
Normal left ventricular chamber size. Normal left ventricular systolic
function. Left ventricular ejection fraction is 55-60%. Normal regional wall
motion. Mild concentric left ventricular hypertrophy.
Top normal right ventricular size. Normal right ventricular systolic function.
Mild aortic regurgitation.
Mild tricuspid regurgitation. Estimated pulmonary artery pressure of 38 mmHg
assuming a right atrial pressure of 8mmHg.
No prior study for comparison
Indications:
flash pulmonary edema
RUQ US 07/31
FINDINGS:
Transabdominal grayscale ultrasound of the abdomen was obtained.
The liver is normal.
There is normal flow in the portal and hepatic veins
The spleen is normal.
There is cholelithiasis with a 5 mm gallstone layering in the dependent position.
There is no thickening of gallbladder wall
There is no pericholecystic edema
There is no dilatation of the common or intrahepatic ducts.
The common duct measures 5.3 mm.
The kidneys are normal in size contour and echogenicity bilaterally.
There is no hydronephrosis.
The pancreas, upper abdominal aorta and upper inferior vena cava are normal
There is small right pleural effusion
Acute Respiratory Failure requiring intubation
MSSA Bacteremia and Pneumonia
Septic Shock
Acute Renal Failure
Hyperkalemia
Lactic Acidosis
Non-Ischemic Myocardial Injury
-s/p intubation morning of 07/31 during rapid response
-initial concern for flash pulmonary edema given acute SOB, CXR read and patient had been receiving IVF. IV lasix given without significant output and worsening renal function; renal consulted and patient initiated on CRRT on 08/01 given worsening
renal function, essentially no urine output and hyperkalemia
-08/01: culture results showing MSSA in Sputum and Blood
-TTE results above - no vegetation
-continue IV Cefazolin per ID
-continue IV Levophed/ VAsopressin. Phenylephrine added on 08/02/24 and now weaned off 08/03. Levophed requirements oscillating
-sedation; SAT/SBT; vent management per Start Up Specialist
-Trop peaked at 0.749
-Start Up Specialist Consult appreciated
-Cardiology consult appreciated
-Nephrology consult appreciated
Worsening Normocytic Anemia
-No evidence of active bleeding
Colorectal Adenocarcinoma with possible lung mets
-Schedule for lung biopsy as outpatient
-patient had not yet started chemotherapy
Paroxysmal Atrial Fibrillation
-Eliquis changed to heparin gtt
-appreciate Cardiology
Constipation
-bowel regimen ordered
Essential Hypertension
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
Hyperlipidemia
-Continue rosuvastatin
DVT proph: Heparin gtt
Code Status: Full Code
Updating , Adriana, daily
Total Critical Care Time 50 minutes. I was immediately available to the patient and staff. I personally examined, reviewed labs, diagnostic images/reports, interpretations, treatment plans, discussed patient care with other providers and family
or caregivers (if patient is unable to make decisions), entered orders as appropriate and documented the medical record.
Anticipated Discharge: > 48 hours
Subjective/Interval History
-
Date of Service: August 05, 2024
intubated, sedated
Objective Data
-
Labs:
Laboratory Results
08/04/24 08/05/24 08/05/24
20:05 02:16 02:16
WBC 18.5 H
Hgb 10.4 L
Hct 32.9 L
Plt Count 138
APTT 139.3 H 110.5 H
HCO3 19.8 L
Sodium 134 L 134 L Cancelled
Potassium 3.9 3.5
Chloride 103
Carbon Dioxide 20 L
BUN 27 H
Creatinine 2.1 H
Glucose 163 H
Calcium 8.5
Total Bilirubin
AST
ALT
Alkaline Phosphatase
08/05/24 08/05/24 08/05/24
02:16 02:16 02:16
WBC
Hgb
Hct
Plt Count
APTT
HCO3
Sodium
Potassium Cancelled
Chloride 104 Cancelled
Carbon Dioxide 20 L Cancelled
BUN 29 H
Creatinine
Glucose
Calcium
Total Bilirubin
AST
ALT
Alkaline Phosphatase
08/05/24 08/05/24 08/05/24
02:16 02:16 02:16
WBC
Hgb
Hct
Plt Count
APTT
HCO3
Sodium
Potassium
Chloride
Carbon Dioxide
BUN Cancelled
Creatinine 2.2 H Cancelled
Glucose 182 H Cancelled
Calcium 8.7
Total Bilirubin
AST
ALT
Alkaline Phosphatase
08/05/24 08/05/24 08/05/24
02:16 08:00 09:00
WBC
Hgb
Hct
Plt Count
APTT Pending
HCO3
Sodium Pending
Potassium Pending
Chloride Pending
Carbon Dioxide Pending
BUN Pending
Creatinine Pending
Glucose Pending
Calcium Cancelled Pending
Total Bilirubin 4.7 H
AST 1448 H*
ALT 403 H
Alkaline Phosphatase 377 H
Vital Signs:
Vital Signs
Temp Pulse Resp BP Pulse Ox
97.1 F 59 19 114/41 99
08/05/24 07:00 08/05/24 07:47 08/05/24 07:47 08/05/24 07:47 08/05/24 07:47
I&O
08/04/24 08/05/24 08/06/24
06:59 06:59 06:59
Intake Total 3736.4 / 3890.1 3849.3 / 4093.8 244.5 / 244.5
Output Total 7619 / 7947 8042 / 8375 333 / 333
Balance -3882.6 / -4056.9 -4192.7 / -4281.2 -88.5 / -88.5
Review of Systems
-
History Source: Patient
All other systems: Reviewed and negative
Physical Exam
-
General: Intubated
HEENT: PERRLA
Respiratory: Negative Wheezes
Cardiac: Regular Rhythm and S1/S2
GI: Soft and Nontender
Musculoskeletal: No Edema
Skin: Warm and Dry; Negative Rash
Neuro: Sedated
Psych: Calm
Data Reviewed
-
Diagnostic Radiology: Report Reviewed by me
Labs: Labs Reviewed by me
[2024-08-05] MEDS: PITRESSIN 100 IV ×2 (08:10→17:54)
[2024-08-05 08:30] LABS: Ionized Calcium 1.18 mMOL/L (1.15-1.33)
[2024-08-05] MEDS: CALCIUM GLUCONATE 100 IV ×3 (08:41→21:30)
[2024-08-05 08:44] LABS: APTT 119.7 Sec (23.4-35.0)
[2024-08-05 08:56] LABS: Blood Urea Nitrogen 28 mg/dl (9-20); Calcium 8.3 mg/dl (8.4-10.2); Carbon Dioxide 20 mmol/L (22-30); Chloride 105 mmol/L (98-107); Estimated Creatinine Clearance 52 ml/min; Glucose 153 mg/dl (70-99); Magnesium 2.4 mg/dl (1.6-2.3); Phosphorus 2.5 mg/dl (2.5-4.5); Potassium 3.4 mmol/L (3.5-5.1); Sodium 136 mmol/L (135-145); eGFR 34.93
--- NOTE | 2024-08-05 08:59 | PTCARENOTE ---
per Dr. Bentley starting at 0900, negative 50cc an hour for CRRT UF.
[2024-08-05] MEDS: SUBLIMAZE 25 MCG IV ×2 (09:06→18:11)
--- NOTE | 2024-08-05 09:09 | W.PN.NEPH.PH ---
Today's Communication / Plan
-
reduce UF
Assessment/Plan
-
64-year-old man with recently diagnosed colorectal cancer with possible lung metastasis and recent diagnosis of atrial fibrillation who presented with lightheadedness and dizziness after starting oral metoprolol as an outpatient and presented to
[facility] emergency department. He presented in acute kidney injury admitted to the floors upgraded to the ICU for increased work of breathing ultimately intubated in the ICU with hyperkalemia.
Patient is critically ill on pressor support essentially anuric.
Positive blood cultures pending organism. Staph aureus sputum culture.
Renal consult for acute kidney injury and hyperkalemia
Impression.
Acute kidney injury and hyperkalemia secondary to septic shock.
Colorectal cancer newly diagnosed June 2024 with possible lung metastasis
Atrial fibrillation on oral anticoagulation
VDRF
Bacteremia/sepsis
Plan.
continue CRRT
net UF 50ml/hr
all indices would suggest that he is improving slowly
however, he is still anuric
wean pressors as allowed, attempt to remove vasopressin today
critical care time 31 minutes
-
-
Date of Service: August 05, 2024
CC / HPI / ROS
-
Chief Complaint:
Septic shock
History of Present Illness:
critically ill in ICU on vent/pressors
increased pressor requirement since yesterday
BP stable
CRRT running
grossly negative I/O from UF
K controlled
LFTs improving
Anuric
Review of Systems:.
sedated on vent
Labs
-
Labs:
WBC 18.5 10^3/uL (4.8-10.8) H 08/05/24 02:16
RBC 3.89 10^6/uL (4.70-6.10) L 08/05/24 02:16
Hgb 10.4 g/dL (13.0-18.0) L 08/05/24 02:16
Hct 32.9 % (39.0-52.0) L 08/05/24 02:16
Plt Count 138 10^3/uL (130-400) 08/05/24 02:16
eGFR 34.93 08/05/24 08:14
Cbt-S-Azcbgvpcezv Pept 3210 pg/ml 07/31/24 07:54
Albumin 2.4 g/dl (3.5-5.0) L 08/05/24 02:16
Physical Exam
-
Vital Signs:
Vital Signs
Temp Pulse Resp BP Pulse Ox
97.1 F 59 19 114/41 99
08/05/24 07:00 08/05/24 07:47 08/05/24 07:47 08/05/24 07:47 08/05/24 08:20
Cardiovascular:: Regular rate and rhythm
Respiratory:: Bilateral: Coarse
Lung Excursion:: Normal
Abdomen:: Nontender and Soft
Bowel Sounds:: Normal
Extremity Edema:: +2: Bilateral:
[2024-08-05] MEDS: ATIVAN 2 MG IV ×3 (09:11→23:52)
[2024-08-05] MEDS: NSS (PRESERVATIVE FREE) 1 ML IV ×2 (09:11→18:07)
--- NOTE | 2024-08-05 09:12 | W.PN.UPDATE ---
Update Note
Progress Note Update
CRRT in progress. no line issues, on systemic heparin.
VSS, but increased pressors requirements, likely due to aggressive UF.
reduce UF to 50ml/hr
electrolytes stable , maintain 4 K bath
access ok
[2024-08-05] MEDS: POTASSIUM PHOSPHATE 259.0909 MEQ IV (09:20)
--- NOTE | 2024-08-05 09:44 | PTCARENOTE ---
sedation vacation started at approx 0730, precedex and fentanyl off, pt initially following commands and cooperative, place on wean. pt became tachypneic, and suddenly agitated. pt thrashing and restless in bed, kicking. unable to redirect. fentanyl
and ativan given as per order, cpot and rass improved. precedex and fentanyl resumed, placed back on AC on vent.
[2024-08-05] MEDS: RFP-400 HD Soln (K+ 2 mEq/L) 15000 ML CRRT-IRR ×2 (10:46→17:10)
--- NOTE | 2024-08-05 10:49 | W.PN.ID1 ---
Date of Service
Date of Service: August 05, 2024
Today's Communication
Continue cefazolin.
Assessment / Plan
S aureus (MSSA) Pneumonia
Strep salivarius bacteremia x 2 sets drawn at the same time
Septic shock, remains on pressors
CHRISS on CRRT
Class III Obesity
Colorectal Adenocarcinoma - not yet on treatment
Psoriatic Arthritis - currently off of Enbrel since ~05/03
- Repeat blood cultures in progress no growth to date
- MSSA from sputum
- TTE on 07/31 without vegetations - may consider repeat if bacteremia is persistent
- c/w cefazolin - dosed for CRRT- at increased the dose of cefazolin to 2 gm IV q8 hours, plan to get level on Tuesday which will result Tuesday
follow pressor requirements, wbc. Patient remains critically ill.
Chief Complaint
-: Pneumonia (S aureus) and Bacteremia (streptococcus)
Subjective / Review of Systems
Remains on vent.
Vital Signs / Physical Exam
Vital Signs
Vital Signs
Temp Pulse Resp BP Pulse Ox
97.1 F 63 18 114/41 96
08/05/24 07:00 08/05/24 09:00 08/05/24 09:00 08/05/24 07:47 08/05/24 09:00
Physical Exam
Constitutional: Acutely Ill
Eyes: Sclera Anicteric
Cardiovascular: Regular Rate and S1/S2
Pulmonary: Clear (anteriorly) and Symmetric
Gastrointestinal: Soft, Non Tender, Non Distended and Normal Bowel Sounds
Extremities: Edema
Lines: Other (HD Cath (no erythema, warmth, tenderness, drainage ) and PICC, Midline, mike - no erythema, warmth, tenderness, drainage )
Objective Data
Lab Data
Lab Results
08/05/24 02:16
PT 19.2 Sec (11.4-14.6) H 07/31/24 17:56
INR 1.59 07/31/24 17:56
APTT 119.7 Sec (23.4-35.0) H 08/05/24 08:14
Estimated Creat Clear 52 ml/min 08/05/24 08:14
Lactic Acid 3.2 mmol/L (0.7-2.0) H 08/05/24 02:16
Total Bilirubin 4.7 mg/dl (0.2-1.3) H 08/05/24 02:16
AST 1448 U/L (17-59) H* 08/05/24 02:16
ALT 403 U/L (0-50) H 08/05/24 02:16
Alkaline Phosphatase 377 U/L (38-126) H 08/05/24 02:16
Most recent labs reviewed.
Micro Results:
08/03/24 03:28 Blood Culture - Preliminary
Blood/Venous No Growth in 48 hours- Final report to follow
08/03/24 03:41 Blood Culture - Preliminary
Blood/Venous No Growth in 48 hours- Final report to follow
08/01/24 18:19 Blood Culture - Preliminary
Blood/Venous No Growth in 72 hours- Final report to follow
08/01/24 15:36 Blood Culture - Preliminary
Blood/Venous No Growth in 72 hours- Final report to follow
07/31/24 07:54 Blood Culture - Final
Blood/Venous Streptococcus salivarius
Gram Stain - Final
07/31/24 07:54 Blood Culture - Final
Blood/Venous Streptococcus salivarius
Gram Stain - Final
07/31/24 12:18 Respiratory Culture - Final
Endotracheal S aureus-Methicillin Sensitive
Gram Stain - Final
07/31/24 11:49 Legionella Urinary Antigen - Final
Urine Negative for Legionella pneumophila Serogroup 1 antigen.
A negative result does not rule out the possiblity of
Legionella infection due to other serogroups or species of
Legionella. Clinical correlation is recommended.
Streptococcus pneumoniae Antigen (M - Final
Negative for Streptococcus pneumoniae antigen.
A negative result does not exclude infection with
Streptococcus pneumoniae. Clinical correlation is
recommended.
07/31/24 12:18 Nasal Screen MRSA (PCR) - Final
Nose MRSA not detected - performed by PCR methodology.
07/31/24 08:10 Influenza Types A & B (KHANG) - Final
Nasal Swab Negative for Influenza A & B, NAAT
Negative results must be combined with clinical observations
and patient history.
Nucleic Acid Amplification test (NAAT)performed on the
[employer] platform.
08/04/24 CXR: Moderate pulmonary edema, without significant change.
[2024-08-05] MEDS: NOVOLOG FLEXPEN-MODERATE RESISTANCE SC ×2 (11:09→17:54)
[2024-08-05] MEDS: LEVOPHED 258 MG IV ×2 (11:09→17:54)
--- NOTE | 2024-08-05 11:17 | PTCARENOTE ---
pt noted to have vomited, ogt to suction- inital 650cc out, Dr. Ball at bedside ordered to hold tube feed for 4 hours and have ogt to low int. suction. Dr. Bentley notified of ogt output ordered to run UF on CRRT at 0 for next 4 hours. at
bedside and remains updated, plan of care discussed with mds. assessment unchanged further.
[2024-08-05 11:20] LABS: Glucose - Point of Care 121 mg/dl (70-99)
--- NOTE | 2024-08-05 13:08 | PTCARENOTE ---
pt desatting into 80s no s/s of distress, respiratory at bedside, fio2 boost given and setting increased to 80%, peep increased to [address] Ball and Dr. Silva aware of blood noted in bm- cbc added to 1400 labs.
[2024-08-05 14:12] LABS: % Basophils 0.5 % (0-2); % Immature Granulocytes 2.5 % (0-0.5); % Lymphocytes 12.5 % (20.5-51.1); % Neutrophils 79.5 % (42.2-75.2); Absolute Basophils 0.1 10^3/uL (0-0.2); Absolute Immature Granulocytes 0.5 10^3/uL (0-0.05); Absolute Lymphocytes 2.6 10^3/uL (1.2-3.4); Absolute Monocytes 1.1 10^3/uL (0.1-0.6); Absolute Neutrophils 16.7 10^3/uL (1.4-6.5); Hematocrit 32.3 % (39.0-52.0); Hemoglobin 10.4 g/dL (13.0-18.0); Mean Corp Hgb Conc. 32.2 g/dL (33.0-37.0); Mean Corpuscular Hgb 26.9 pg (27.0-31.0); Mean Corpuscular Volume 83.5 fL (80.0-94.0); Nucleated Red Blood Cells % 0.2 % (-); Platelet Count 113 10^3/uL (130-400); Red Blood Cell Count 3.87 10^6/uL (4.70-6.10); Red Cell Dist. Width 16.9 % (11.5-14.5)
[2024-08-05 14:19] LABS: Ionized Calcium 1.18 mMOL/L (1.15-1.33)
[2024-08-05 14:23] LABS: APTT 115.6 Sec (23.4-35.0)
[2024-08-05 15:25] LABS: Blood Urea Nitrogen 29 mg/dl (9-20); Carbon Dioxide 21 mmol/L (22-30); Chloride 105 mmol/L (98-107); Estimated Creatinine Clearance 57 ml/min; Glucose 122 mg/dl (70-99); Magnesium 2.1 mg/dl (1.6-2.3); Potassium 3.8 mmol/L (3.5-5.1); Sodium 136 mmol/L (135-145); eGFR 39.39
--- NOTE | 2024-08-05 15:35 | PTCARENOTE ---
no further output from ogt, per Dr. Ball restart feeds at 25cc/hr and increase as tolerated back to goal. pt remains incontinent of bowel. turned and repositioned. assessment unchanged. see vent settings.
[2024-08-05 17:57] LABS: Glucose - Point of Care 113 mg/dl (70-99)
--- NOTE | 2024-08-05 18:14 | PTCARENOTE ---
pt tachycardiac and tachypneic. pt extremely agitated, thrashing in bed, kicking, biting on ett- ativan given per order. cpot 8- fentanyl given as per order. cpot improved. pt resting comfortably. crrt continues.
--- NOTE | 2024-08-05 18:59 | PTCARENOTE ---
Assumed care of pt. approx. 1900.
Remains on CRRT with a UF pull of -50. remains 2K bath. Error per Dr. Bentley note citing bath is 4K, clarified by day team to keep running 2K per order.
Remains Intubated/Sedated, x2 vasopressors. See titration flowsheets for further details.
[2024-08-05 20:17] LABS: Ionized Calcium 1.19 mMOL/L (1.15-1.33)
[2024-08-05 20:31] LABS: APTT 113.4 Sec (23.4-35.0)
[2024-08-05] MEDS: SEROQUEL 50 MG TUBE (20:33)
[2024-08-05 20:44] LABS: Blood Urea Nitrogen 30 mg/dl (9-20); Calcium 8.8 mg/dl (8.4-10.2); Carbon Dioxide 22 mmol/L (22-30); Chloride 103 mmol/L (98-107); Estimated Creatinine Clearance 54 ml/min; Glucose 131 mg/dl (70-99); Magnesium 2.2 mg/dl (1.6-2.3); Phosphorus 4.1 mg/dl (2.5-4.5); Potassium 3.6 mmol/L (3.5-5.1); Sodium 134 mmol/L (135-145); eGFR 37.04
--- NOTE | 2024-08-05 21:15 | RESPNOTE ---
PT was taken off of the vent and bag ventilated and lavaged/suctioned for a moderate amt of thick edouard secretions and recovered adequate O2 saturations.
--- NOTE | 2024-08-05 23:34 | PTCARENOTE ---
No change in pt. assessment.
Heparin not therapeutic, dose decreased per protocol.
Remains 2x pressed, norepi maxed.
[2024-08-05 23:58] LABS: Glucose - Point of Care 113 mg/dl (70-99)
[2024-08-06] VITALS: BP 125/32
[2024-08-06] MEDS: NOVOLOG FLEXPEN-MODERATE RESISTANCE SC ×4 (00:01→17:53)
[2024-08-06] MEDS: PRECEDEX 100 IV ×3 (00:48→18:09)
[2024-08-06] MEDS: RFP-400 HD Soln (K+ 2 mEq/L) 5000 ML CRRT-IRR ×2 (00:49→06:30)
[2024-08-06] MEDS: SUBLIMAZE 100 IV ×2 (00:53→23:06)
--- NOTE | 2024-08-06 02:00 | W.PN.UPDATE ---
Update Note
Progress Note Update
0200- Patient heart rate sustained 110-120s in Afib. Will change vasopressor levophed to brandi gtt. Updated principal embedded software engineer Dr. Matson, agreed with plan of care. Transition patient as tolerated to vasopressor brandi and vasopressin gtts.
--- NOTE | 2024-08-06 02:06 | PTCARENOTE ---
PT. having increased ectopy, runs of vtach.
Converted into Atrial fibrillation, ICU ABEL/cardiology notified,
--> orders to switch to Phenylephrine.
Pt. bridged from x2 norepi to x2 Phenylephrine.
[2024-08-06 02:10] LABS: Ionized Calcium 1.23 mMOL/L (1.15-1.33)
[2024-08-06 02:26] LABS: APTT 105.4 Sec (23.4-35.0)
[2024-08-06] MEDS: NEO-SYNEPHRINE 1% 260 MG IV ×3 (02:52→20:54)
[2024-08-06] MEDS: PITRESSIN 100 IV ×3 (03:01→23:47)
[2024-08-06] MEDS: HEPARIN 25000 UNITS/250 ML IV (03:06)
[2024-08-06 03:23] LABS: Blood Urea Nitrogen 29 mg/dl (9-20); Calcium 8.8 mg/dl (8.4-10.2); Carbon Dioxide 23 mmol/L (22-30); Chloride 105 mmol/L (98-107); Estimated Creatinine Clearance 57 ml/min; Glucose 129 mg/dl (70-99); Magnesium 2.1 mg/dl (1.6-2.3); Phosphorus 3.8 mg/dl (2.5-4.5); Potassium 3.8 mmol/L (3.5-5.1); Sodium 136 mmol/L (135-145); eGFR 39.39
[2024-08-06 03:36] LABS: HCO3 22.2 mmol/L (21-28); O2 Saturation % 99.2 % (94-98); PCO2 35 mmHg (35-48); PO2 137 mmHg (83-108); pH 7.41 (7.35-7.45)
[2024-08-06 03:37] LABS: ALT (SGPT) 219 U/L (0-50); Albumin 2.2 g/dl (3.5-5.0); Alkaline Phosphatase 366 U/L (38-126); Total Bilirubin 4.1 mg/dl (0.2-1.3); Total Protein 5.4 g/dl (6.3-8.2)
[2024-08-06 03:41] LABS: AST (SGOT) 956 U/L (17-59)
[2024-08-06 03:47] LABS: Hematocrit 32.8 % (39.0-52.0); Hemoglobin 10.4 g/dL (13.0-18.0); Mean Corp Hgb Conc. 31.7 g/dL (33.0-37.0); Mean Corpuscular Hgb 26.8 pg (27.0-31.0); Mean Corpuscular Volume 84.5 fL (80.0-94.0); Mean Platelet Volume 10.6 fL (7.4-10.4); Platelet Count 103 10^3/uL (130-400); Red Blood Cell Count 3.88 10^6/uL (4.70-6.10); Red Cell Dist. Width 17.1 % (11.5-14.5); White Blood Cell Count 21.1 10^3/uL (4.8-10.8)
--- NOTE | 2024-08-06 03:59 | PTCARENOTE ---
Pt. now off norepi, transitioned to Phenylephrine.
Remains in afib, no recent runs of Vtach.
CRRT running w/o issue, ca rplt x1.
[2024-08-06 04:06] LABS: Lactic Acid 1.7 mmol/L (0.7-2.0)
[2024-08-06 04:15] LABS: NT-proBNP 2850 pg/ml
[2024-08-06] MEDS: ANCEF 10 IV (04:36)
--- NOTE | 2024-08-06 05:23 | PTCARENOTE ---
Pt. converted into sinus sinai.
[2024-08-06 06:00] VITALS: BMI 42.2
[2024-08-06 06:08] LABS: Glucose - Point of Care 86 mg/dl (70-99)
--- NOTE | 2024-08-06 06:11 | W.PN.UPDATE ---
Addendum entered and electronically signed by RENUKA Smith 08/06/24 07:05:
Consulted colorectal Dr. Corona. Updated at bedside and answered all questions, she would like to see what the doctors say during rounds today.
Original Note:
Update Note
Progress Note Update
0600- Patient had large bloody bowel movement. Orderer heparin gtt to stop now, trend H&H q6h, protonix gtt, consulted GI Dr. Stanton Short, and updated Dr. Olguin stationary engineer supervisor.
--- NOTE | 2024-08-06 06:22 | PTCARENOTE ---
Pt. had very large bloody bowel movement, icu sheriff officer notified, heparin put on hold stat H/H sent. GI consulted
[2024-08-06 06:25] LABS: Hematocrit 32.2 % (39.0-52.0); Hemoglobin 10.3 g/dL (13.0-18.0)
[2024-08-06] MEDS: NSS (PRESERVATIVE FREE) IV (07:19)
[2024-08-06] MEDS: MIRALAX TUBE ×2 (07:19→19:20)
[2024-08-06] MEDS: COLACE LIQUID TUBE ×2 (07:19→19:19)
[2024-08-06] MEDS: SEROQUEL TUBE ×2 (07:24→19:22)
[2024-08-06] MEDS: PROTONIX 100 IV (07:48)
--- NOTE | 2024-08-06 08:00 | PTCARENOTE ---
Received pt @ change of shift intubated/sedated w b/l soft limb and 4 rails restraints- see flow sheet. Opens eyes spont to tactile stim; does not track/follow commands. PERRLA, 2mm/sluggish. +coug/gag/corneal. SB-SR on monitor w PVC's. +1
anasarca. Doppler pedals. SpO2 98% on vent settings AC18/500/.40/+5; #8.0 ett, 25 @ lip in center. Auscultated coarse breath sounds w scattered crackles throughout. Small amt thick/edouard secretions from ett. Absent BS, abd round/obese/soft. Inc of
lg amt of burgundy stool x2; rectal inc pouch applied. OG tube secured @ 60cm; clamped; TF off on previous shift. Thermistor bourgeois in place; oliguric of a few cc of zion urine over past few days. R IJ HD cath w CRRT per orders-see flow sheet. R
DL PICC w brandi/vaso/dex/fent/protonix- see flow sheets. L midline patent, dressing c/d/i. R rad A-line transduced, calibrated, monitored; all ports patent and secured. @ bedside.
[2024-08-06 08:30] LABS: APTT 72.4 Sec (23.4-35.0)
--- NOTE | 2024-08-06 08:44 | W.PN.CARDCBS ---
Today's Communication / Plan
-
Continue hemodynamic support with IV pressors as needed for bp support.
He is now on Vasopression and Peter and off Levophed given recurrent AFib.
Back in sinus with good HR control.
Possible decompensated heart failure with preserved ejection fraction presenting with rapid development of pulmonary edema
Poor urine output with attempted IV Lasix diuresis in the setting of acute kidney injury and rising creatinine
CRRT now on hold with bleeding issue
Cont volume control as per renal.
Paroxysmal Atrial fibrillation recently converted to sinus rhythm (this hospital stay) and now back in sinus
IV Heparin anticoagulation now held given bleeding issue. He remains in sinus
Pt had been on Heparin for thromboembolic risk reduction (CHADSVASc = 2 with CHF, HTN) + higher thrombotic risk with malignancy
Eventual AV kalin nirav for rate control as BP tolerates however with pressor therapy would hold Toprol for now.
No amiodarone if possible given hepatic injury, although LFTs were improving.
HLD
Hold statin with elevated LFTs.
LFTs slowly improving
Impression / Plan
-
.
Primary Talent Development Specialist: Dr. Hiren Vicente
Impression:
MSOF (resp failure, CHF, liver failure, renal failure)
GI bleeding
Hypotension requiring pressors
CHRISS (likely as a consequence of hypotension, possibly from septic shock versus cardiogenic shock or combination of both)
Acute hypoxic respiratory failure requiring intubation 07/31/24
Liver failure (likely as a consequence of hypotension, possibly from septic shock versus cardiogenic shock or combination of both)
Fever
Sepsis, s aureus PNA, possible S aureus bacteremia
Initial concern for flash pulm edema
Recent diagnosis paroxysmal atrial fibrillation with recurrent AFib with RVR
Colorectal cancer, suspected metastatic, diagnosed 06/22/2024, not yet started on therapy
Pulmonary nodule with concern for metastasis, scheduled for lung biopsy 08/03
Hypertension
Hyperlipidemia
Obstructive sleep apnea
Obesity
ECHO 07/31/24: Normal LV function. LVEF is 55-60%. No wall motion abnormality. Top normal right ventricular size with normal RV function. Mild AI and mild TR. Estimated pulmonary artery pressure of 38 mmHg
Plan:
He remains critically ill with MSOF (resp failure, CHF, liver failure, renal failure), shock, sepsis, lactic acidosis. He remains pressor dependent.
Continue hemodynamic support with IV pressors as needed for bp support.
He is now on Vasopression and Peter and off Levophed given recurrent AFib.
Back in sinus with good HR control.
Possible decompensated heart failure with preserved ejection fraction presenting with rapid development of pulmonary edema
Poor urine output with attempted IV Lasix diuresis in the setting of acute kidney injury and rising creatinine
CRRT now on hold with bleeding issue
Cont volume control as per renal.
Paroxysmal Atrial fibrillation recently converted to sinus rhythm (this hospital stay) and now back in sinus
IV Heparin anticoagulation now held given bleeding issue. He remains in sinus
Pt had been on Heparin for thromboembolic risk reduction (CHADSVASc = 2 with CHF, HTN) + higher thrombotic risk with malignancy
Eventual AV kalin nirav for rate control as BP tolerates however with pressor therapy would hold Toprol for now.
No amiodarone if possible given hepatic injury, although LFTs were improving.
HLD
Hold statin with elevated LFTs.
LFTs slowly improving
GI bleeding
GI evaluating
IV Heparin stopped
Discussed with nursing and family at bedside
CCT: 31 min
HPI:
64-year-old man with recently diagnosed colorectal cancer with possible lung metastasis and recent diagnosis of atrial fibrillation who presented with lightheadedness and dizziness after starting oral metoprolol as an outpatient and presented to
[facility] emergency department for further management. After being found to have CHRISS and anemia he was admitted for further management. Unfortunately developed increased work of breathing this morning, became tachycardic and was found to be
febrile. Did not clinically improve with BiPAP and he was subsequently intubated and transferred to the medical ICU for further management. Currently being treated with broad-spectrum antibiotics and requiring pressor support.
Seen in the outpatient cardiology office 07/26/24 and was in AF with a rapid ventricular rate of 130 bpm. At that visit he had yet to initiate Toprol-XL which was ordered by his primary care physician. At that office visit he agreed to initiate
Toprol-XL 25 mg daily for rate control with plan to defer recommendations regarding rhythm control until he was adequately anticoagulated (atrial fibrillation of unknown duration) and to allow for intermittent interruption of anticoagulation for
planned upcoming procedures regarding his recently diagnosed colorectal cancer with likely pulmonary metastases (bronchoscopy, port placement, colorectal surgery). Eliquis 5 mg twice daily was also initiated on 07/26/24..
Cardiology is consulted for possible heart failure as a cause of his respiratory decompensation. proBNP was mildly elevated (3210), it is possible there is some component of heart failure with preserved ejection fraction.
On presentation to the emergency department 07/30/24, he was in atrial fibrillation with reasonably controlled ventricular rate of 105 bpm. EKG of July 31, 2024 finds sinus rhythm at 77 bpm.
Progress Note - Talent Development Specialist
Subjective
Date of Service: August 06, 2024
Pt seen and examined. Sedated on vent
Objective
Labs:
Labs
Hgb 10.3 g/dL (13.0-18.0) L 08/06/24 06:15
Hct 32.2 % (39.0-52.0) L 08/06/24 06:15
Plt Count 103 10^3/uL (130-400) L 08/06/24 03:26
PT 19.2 Sec (11.4-14.6) H 07/31/24 17:56
INR 1.59 07/31/24 17:56
APTT 72.4 Sec (23.4-35.0) H 08/06/24 08:03
Sodium Cancelled 08/06/24 06:00
Potassium Cancelled 08/06/24 06:00
BUN Cancelled 08/06/24 06:00
Creatinine Cancelled 08/06/24 06:00
Glucose Cancelled 08/06/24 06:00
Vital Signs and I&O:
Vital Signs
Temp Pulse Resp BP Pulse Ox
97.5 F 60 18 125/32 94
08/06/24 07:36 08/06/24 06:30 08/06/24 06:30 08/06/24 00:00 08/06/24 08:12
Vital Signs
Temp Pulse Resp BP Pulse Ox
97.5 F 60 18 125/32 94
08/06/24 07:36 08/06/24 06:30 08/06/24 06:30 08/06/24 00:00 08/06/24 08:12
Intake & Output
08/04/24 08/05/24 08/06/24 08/07/24
06:59 06:59 06:59 06:59
Intake Total 3736.4 / 3890.1 3849.3 / 4093.8 3304.1 / 3348.6 103.0 / 103.0
Output Total 7619 / 7947 8042 / 8375 4707 / 4849 240 / 240
Balance -3882.6 / -4056.9 -4192.7 / -4281.2 -1402.9 / -1500.4 -137.0 / -137.0
Physical Exam
Physical Exam
General: Sedated on vent
Neck: Negative JVD
Heart: Regular, Negative S3 positive S1/S2, Negative S4, No murmur
Lungs: CTA b/l, negative wheezes/rales/rhonchi
Abd: Morbid obesity Positive BS, NT/ND, neg rebound/rigidity/guarding
Ext: Negative cyanosis/clubbing. +1 b/l edema
Neuro: nonfocal
--- NOTE | 2024-08-06 09:06 | W.PN.ID1 ---
Date of Service
Date of Service: August 06, 2024
Today's Communication
- ongoing shock, not stable for swan, empirically broadened therapy to unasyn; stopped cefazolin
Assessment / Plan
Shock - cardiogenic vs septic, possibly also with a hypovolemic component as now with GI bleeding
S aureus (MSSA) Pneumonia
Strep salivarius bacteremia x 2 sets drawn at the same time
Septic shock, remains on pressors
CHRISS on CRRT
Class III Obesity
Colorectal Adenocarcinoma - not yet on treatment
Psoriatic Arthritis - currently off of Enbrel since ~05/03
- Repeat blood cultures in progress no growth to date
- MSSA from sputum
- TTE on 07/31 without vegetations
- ongoing shock, not stable for swan, empirically broadened therapy to unasyn; stopped cefazolin
follow pressor requirements, wbc, physical exam. Patient remains critically ill.
Chief Complaint
-: Pneumonia (S aureus) and Bacteremia (streptococcus)
Subjective / Review of Systems
hypothermic overnight
phenylephrine on at 180 mcg/min, norepi off, vaso remains on - improved ectopy
remains aneuric
very large bloody bowel movement this Am - heparin on hold and H/Hs being repeated
CRRT now on hold - due to bleeding concern
Possible decompensated heart failure with preserved EF
Vital Signs / Physical Exam
Vital Signs
Vital Signs
Temp Pulse Resp BP Pulse Ox
97.5 F 60 18 125/32 94
08/06/24 07:36 08/06/24 06:30 08/06/24 06:30 08/06/24 00:00 08/06/24 08:12
Physical Exam
Constitutional: No Acute Distress
Cardiovascular: Regular Rate and S1/S2; Negative Murmur or Rub
Pulmonary: Clear and Symmetric; Negative Wheezes or Rales
Gastrointestinal: Soft, Non Tender, Distended (mild) and Normal Bowel Sounds
Skin: Warm and Dry; Negative Rash or Jaundice
Neurological: Negative Awake (sedated)
Physical Exam:
HD cath/a line/PICC - no erythema, warmth,tenderness or drainage
Objective Data
Lab Data
PT 19.2 Sec (11.4-14.6) H 07/31/24 17:56
INR 1.59 07/31/24 17:56
APTT 72.4 Sec (23.4-35.0) H 08/06/24 08:03
Estimated Creat Clear Cancelled 08/06/24 06:00
Lactic Acid 1.7 mmol/L (0.7-2.0) 08/06/24 03:26
Total Bilirubin Cancelled 08/06/24 06:00
AST Cancelled 08/06/24 06:00
ALT Cancelled 08/06/24 06:00
Alkaline Phosphatase Cancelled 08/06/24 06:00
Most recent labs reviewed.
WBC remains elevated similar to yesterday at 21, overall increased
hgb 10.3 stable
T bili and LFTs improving
Chest X-Ray: Image Reviewed and Report Reviewed (mild bibasilar pneumonia. Improved on the right. Stable on the left. Clinical and laboratory correlation recommended.)
Micro Results:
07/31/24 12:18 Respiratory Culture - Final
Endotracheal S aureus-Methicillin Sensitive
Gram Stain - Final
08/03/24 03:41 Blood Culture - Preliminary
Blood/Venous No Growth in 72 hours- Final report to follow
08/03/24 03:28 Blood Culture - Preliminary
Blood/Venous No Growth in 72 hours- Final report to follow
08/01/24 18:19 Blood Culture - Preliminary
Blood/Venous No Growth in 4 days- Final report to follow
08/01/24 15:36 Blood Culture - Preliminary
Blood/Venous No Growth in 4 days- Final report to follow
07/31/24 07:54 Blood Culture - Final
Blood/Venous Streptococcus salivarius
Gram Stain - Final
07/31/24 07:54 Blood Culture - Final
Blood/Venous Streptococcus salivarius
Gram Stain - Final
07/31/24 11:49 Legionella Urinary Antigen - Final
Urine Negative for Legionella pneumophila Serogroup 1 antigen.
A negative result does not rule out the possiblity of
Legionella infection due to other serogroups or species of
Legionella. Clinical correlation is recommended.
Streptococcus pneumoniae Antigen (M - Final
Negative for Streptococcus pneumoniae antigen.
A negative result does not exclude infection with
Streptococcus pneumoniae. Clinical correlation is
recommended.
07/31/24 12:18 Nasal Screen MRSA (PCR) - Final
Nose MRSA not detected - performed by PCR methodology.
07/31/24 08:10 Influenza Types A & B (KHANG) - Final
Nasal Swab Negative for Influenza A & B, NAAT
Negative results must be combined with clinical observations
and patient history.
Nucleic Acid Amplification test (NAAT)performed on the
[employer] platform.
08/04/24 CXR: Moderate pulmonary edema, without significant change.
--- NOTE | 2024-08-06 09:44 | CON.CRS ---
Consultation
-
Date/Time Consultation Requested: 08/06/2024, 6:06am
Date/Time Consultation Performed: 08/06/2024, 8:15am
Requesting Provider: Juanita Knox
Performing Provider: Mykel Vera MD
Reason for Consultation: rectal bleeding
Medical History
-
Chief Complaint: dizziness/rectal bleeding
History of Present Illness:
64yo male with a recent diagnosis of rectal cancer and afib (on eliquis) presents to [facility] complaining of dizziness while at home. He was found to have S aureus pneumonia, and became hypoxic 6 days ago and was intubated. He has remained
ventilated since intubation in the ICU. A heparin gtt was started due to holding of Eliquis. The patient developed bleeding per rectum at 6am and again at 7:30am. Both amounts were large, about 1 L each time per nursing. He has remained on pressers
and was recently switched to brandi gtt. His last hemoglobin was 10.3 from 10.4. His WBC is elevated, 21.1 from 21.0. No imaging has yet been performed. Given the bleeding, gastroenterology and colorectal surgery were both consulted for further
opinion.
Past Medical History
Past Medical History: Cancer (rectal cancer), HTN, Hypercholesterolemia and Other (HAN, afib on eliquis, h/o psoriasis, hep A, restrictive lung disease)
Past Surgical History: Other (Wrist surgery, right ankle ligament surgery, lip surgery)
Social History
Tobacco: Non-Smoker
Alcohol: None
Drug: None
Personal:
Living: With Family
Family History
Family History: Reviewed & Not Pertinent
Allergies / Home Medications
Allergy/AdvReac Type Severity Reaction Status Date / Time
No Known Allergies Allergy Verified 07/30/24 16:02
�Medication �Instructions �Recorded �Confirmed �Type
olmesartan 40 1 tab PO HS Blood Pressure 06/22/24 07/30/24 History
mg-hydrochlorothiazide 12.5 mg
tablet
rosuvastatin 10 mg tablet 10 mg PO HS High Cholesterol 06/22/24 07/30/24 History
apixaban 5 mg tablet (Eliquis) 5 mg PO BID Blood Clot 07/30/24 07/30/24 History
Prevention/Tx
lorazepam 1 mg tablet 1 mg PO HSPRN PRN sleep 07/30/24 07/30/24 History
metoprolol succinate 25 mg 25 mg PO HS Blood Pressure 07/30/24 07/30/24 History
tablet,extended release 24 hr
Review of Systems
-
Unable to obtain full review of systems at this time due to: Patient Intubation
History Source: Family, Transfer Record and Physician
Constitutional: Other (dizziness)
Abdomen/GI: Bloody Stools
A 10 point review of systems was completed, and was negative except as per HPI.
Physical Exam
Vital Signs
Temp 97.5 F 08/06/24 07:36
Pulse 60 08/06/24 06:30
Resp Rate 18 08/06/24 06:30
Blood pressure 125/32 08/06/24 00:00
SaO2 94 08/06/24 08:12
08/05/24 08/06/24 08/07/24
06:59 06:59 06:59
Actual Weight 137.2 kg 137.1 kg
Body Mass Index (BMI) 42.2
Lab Results / Allergies
WBC 21.1 10^3/uL (4.8-10.8) H 08/06/24 03:26
Hgb 10.3 g/dL (13.0-18.0) L 08/06/24 06:15
Hct 32.2 % (39.0-52.0) L 08/06/24 06:15
Plt Count 103 10^3/uL (130-400) L 08/06/24 03:26
Abs Immat Gran (auto) 0.5 10^3/uL (0-0.05) H 08/05/24 13:56
Neutrophils % 79.5 % (42.2-75.2) H 08/05/24 13:56
Allergy/AdvReac Type Severity Reaction Status Date / Time
No Known Allergies Allergy Verified 07/30/24 16:02
Physical Exam
General: Other (intubated and sedated)
GI: Non Tender and Non Distended
Rectal: Other (large pool of blood underneath buttock, JEAN PIERRE deferred due to intubation/on pressers)
Neuro: Sedated
Data Reviewed
-
Labs: Labs Reviewed by me and Discussed with Physician
Old Records: Reviewed
Assessment / Plan
-
Assessment: 64 yo male with a history of recently diagnosed rectal cancer presents to the ER with dizziness, found to have S aureus pneumonia and active rectal bleeding on heparin gtt
Plan:
-Poor surgical candidate
-Discussed with GI/Architectural Model Maker - will order CTA A/P for ?embolization if active bleeding.
-Plan was discussed at bedside to by Dr. Vera
-Agree with holding heparin gtt
-Wean pressers as tolerated
-Medical management per hospitalist
--- NOTE | 2024-08-06 10:11 | CON.GI ---
Addendum entered and electronically signed by Stanton Short DO 08/06/24 11:49:
I saw and examined the patient.
The ETL DATA ARCHITECT's note was reviewed and I agree with the note.
Comment: Mr. Redd is a 64 y.o male with a past medical history of HTN, HLD, HAN, restrictive lung disease, psoriasis (on Enbrel), newly diagnosed rectal cancer with concern for malignancy/metastases (low-grade adenocarcinoma 06/22/2024, yet to
start treatment with 2.2 cm RUL nodule c/f met) who initially presented on 07/30 with lightheadedness and generalized malaise found to have strep bacteremia and started on pressors for MSSA pneumonia. Course further complicated by cardiogenic
pulmonary edema (EF 55-60%) and A Fib w/ RVR requiring anticoagulation. He has remained on Vaso/Peter with unchanged pressor requirements, although was changed from levo to peter due to A Fib with RVR. Additionally, hospital course also significant for
CHRISS currently on CRRT. He developed acute, bright red blood per rectum this AM without prior melena with documented previous brown stools on 08/05. Liquid brown stool mixed with bright red blood on bunny this morning on 08/06. Labs notable for Hgb
10.3 (previously 10.4) with WBC 21k and plts 103. Etiology of rectal bleeding likely secondary to known rectal cancer as seen during a recent colonoscopy revealing a partially obstructing tumor (4 cm from the anal verge) along with an additional
mass in the rectum of about 4 cm at 8 cm from the anorectal verge. Much less likely diverticular or AVM given these recent findings and no AVMs visualized during patient's recent prior colonoscopy. No concern for a brisk UGIB given rectal bleeding
without preceding melena and known untreated rectal cancer. Given patient's multi-organ failure along with untreated rectal cancer, would defer on flex-sig at this time especially given recent IV heparin gtt as not without increased risks of
increased bleeding. Favor non-invasive approach with stat CTA in attempts of localization and potential IR embolization if CTA were to be positive. Furthermore, endoscopic therapy would be further limited as unable to cauterize or clip. Could
potentially perform hemostatic spray but this is only a temporizing measure. However, given size of lesion and distal location this is likely not amenable to any endoscopic therapies. Patient remains at high-risk for decompensation given his
multiorgan failure and favor non-invasive measures along with supportive care as per primary ICU team.
Recommendations:
- Ensure two large bore IVs
- Trend Hgb with serial CBC, transfuse for goal Hgb > 8.0
- Hold IV heparin gtt (08/06- )
- Recommend stat CTA in attempts of localization and IR consult if (+) for embolization
- No plans for a flex-sig at this time. Would consider this if ongoing bloody stools despite holding IV heparin and worsening pressor requirements
- If flex-sig were to be pursued, therapy would be extremely limited given known rectal cancer but could attempt hemostatic spray
- CRS following, appreciate recs
- Rest of care as per primary ICU team
Discussed with patient's , CRS team, along with primary ICU team this AM. GI will continue to follow.
Original Note:
Consultation
-
Date/Time Consultation Requested: 08/06/24607
Date/Time Consultation Performed: 08/06/24829
Requesting Provider: RENUKA Fajardo
Performing Provider: Dr. Short/RENUKA Villafana
Reason for Consultation: rectal bleeding
Medical History
Chief Complaint / HPI
Chief Complaint: dizziness
History of Present Illness:
64-year-old male with past medical history of obstructive sleep apnea on CPAP, psoriasis (on Enbrel last dose 04/2024), hypertension, hyperlipidemia, newly diagnosed rectal cancer June 22, 2024 (low-grade adenocarcinoma) with PET scan
demonstrating a 2.2 cm right upper lobe pulmonary nodule concerning for malignancy/metastases was awaiting bronchoscopy, new onset A-fib with RVR started on Toprol and Eliquis as an outpatient, CHRISS who presented to the emergency room on 07/31/2024
with dizziness, fatigue and lightheadedness. He developed an increased workload and breathing. Decrease in pulse ox. Fluid was stopped. Patient was started on Levophed initially and was intubated. Flu and COVID were negative. Levophed was
stopped. Changed to peter and vasopressin. Patient continued with fevers. Started on Vanco cefepime and azithromycin. Blood cultures positive for strep salivarius bacteremia x 2 sets drawn. Repeat blood cultures no growth to date. MSSA from
sputum. TTE without vegetation. CHRISS on CRRT. Patient remains on heparin drip for A-fib with RVR. Patient was tolerating tube feeds on Nepro. He had a hard brown bowel movement on 08/05/2024. On 08/06/2024 at 6 AM he started having bright red
bloody bowel movements. We are asked to evaluate for the same. Discussed with nursing. She said there was approximately 1 L of maroon bloody bowel movement. Heparin drip was stopped around 6:10. At time of evaluation patient has a fecal
management device in place with no current blood per rectum.
Past Medical History
Past Medical History: Other (HAN on CPAP, psoriasis, hypertension, hyperlipidemia, rectal adenocarcinoma, right upper lung pulmonary nodule, A-fib with RVR, CHRISS)
Past Surgical History: Other (Wrist surgery, right ankle ligament surgery, lip surgery)
Social History
Tobacco: Non-Smoker
Alcohol: Occasional
Drug: None
Personal:
Living: With Family
Family History
Family History: Other (No family history of gastrointestinal malignancy, IBD)
Allergies / Home Medications
Allergy/AdvReac Type Severity Reaction Status Date / Time
No Known Allergies Allergy Verified 07/30/24 16:02
�Medication �Instructions �Recorded
olmesartan 40 1 tab PO HS Blood Pressure 06/22/24
mg-hydrochlorothiazide 12.5 mg
tablet
rosuvastatin 10 mg tablet 10 mg PO HS High Cholesterol 06/22/24
apixaban 5 mg tablet (Eliquis) 5 mg PO BID Blood Clot 07/30/24
Prevention/Tx
lorazepam 1 mg tablet 1 mg PO HSPRN PRN sleep 07/30/24
metoprolol succinate 25 mg 25 mg PO HS Blood Pressure 07/30/24
tablet,extended release 24 hr
Review of Systems
-
Unable to obtain full review of systems at this time due to: Patient Intubation
Vital Signs
Temp Pulse Resp BP Pulse Ox
97.5 F 60 18 125/32 98
08/06/24 07:36 08/06/24 06:30 08/06/24 06:30 08/06/24 00:00 08/06/24 09:49
Physical Exam
Exam
General: Intubated
Respiratory: Clear (Anterior)
Cardiac: Regular Rhythm
GI: Soft, Non Distended and Other (Absent bowel sounds)
Rectal: Other (Fecal management tube in place)
Skin: Other (Cool lower extremities)
Neuro: Sedated
Results
WBC 21.1 10^3/uL (4.8-10.8) H 08/06/24 03:26
Hgb 10.3 g/dL (13.0-18.0) L 08/06/24 06:15
Hct 32.2 % (39.0-52.0) L 08/06/24 06:15
MCV 84.5 fL (80.0-94.0) 08/06/24 03:26
Plt Count 103 10^3/uL (130-400) L 08/06/24 03:26
Absolute Neuts (auto) 16.7 10^3/uL (1.4-6.5) H 08/05/24 13:56
PT 19.2 Sec (11.4-14.6) H 07/31/24 17:56
INR 1.59 07/31/24 17:56
APTT 72.4 Sec (23.4-35.0) H 08/06/24 08:03
Sodium Cancelled 08/06/24 06:00
Potassium Cancelled 08/06/24 06:00
Chloride Cancelled 08/06/24 06:00
Carbon Dioxide Cancelled 08/06/24 06:00
BUN Cancelled 08/06/24 06:00
Creatinine Cancelled 08/06/24 06:00
Calcium Cancelled 08/06/24 06:00
Total Bilirubin Cancelled 08/06/24 06:00
AST Cancelled 08/06/24 06:00
ALT Cancelled 08/06/24 06:00
Alkaline Phosphatase Cancelled 08/06/24 06:00
Diagnostic Image Results:
Chest x-ray 08/06/24:
IMPRESSION:
Lines tubes as described above.
Findings suggesting mild bibasilar pneumonia. Improved on the right. Stable on the left. Clinical and laboratory correlation recommended.
Mild left lower lobe atelectasis versus scarring. Stable
Prior GI Procedures:
EGD:
Colonoscopy: 06/22/24 (dr. Hinkle) - Diverticulosis in the sigmoid colon and in the
descending colon.
- Likely malignant partially obstructing tumor in the
rectum at around 4cm from anal verge. Biopsied.
- One 5 mm polyp in the descending colon, removed with
a cold snare. Resected and retrieved.
- Another mass in the rectum about 4cm in size at 8cm
from anal verge. Biopsied. Tattooed placed in 4
quadrants proximal to these 2 rectal masses. Path: Descending colon polyp tubular adenoma. Rectal mass biopsy invasive low-grade colorectal adenocarcinoma.
Assessment / Plan
-
64-year-old male with past medical history of obstructive sleep apnea on CPAP, psoriasis (on Enbrel last dose 04/2024), hypertension, hyperlipidemia, newly diagnosed rectal cancer June 22, 2024 (low-grade adenocarcinoma) with PET scan
demonstrating a 2.2 cm right upper lobe pulmonary nodule concerning for malignancy/metastases was awaiting bronchoscopy, new onset A-fib with RVR started on Toprol and Eliquis as an outpatient, CHRISS who presented to the emergency room on 07/31/2024
with dizziness, fatigue and lightheadedness. With sepsis, shock, multisystem organ failure, pressor dependent now with rectal bleeding while on heparin drip. Heparin drip stopped at 6:10 AM. Likely secondary to rectal cancer less likely
diverticular.
Impression:
Rectal bleeding, likely secondary to known rectal cancer diagnosed 06/22/2024
Multisystem organ failure, on CRRT, 2 pressor support, VDRF
A-fib with RVR was on heparin drip-> stopped at 0610
MSSA pneumonia
Strep salivarius bacteremia
Plan:
-Continue to hold anticoagulation
-Repeat labs due at noon
-Plan on CTA, to see if there is source of bleeding that is amenable to treatment with IR
-Discussed with colorectal surgery as well as pulmonary critical care
-If patient continues to bleed despite holding anticoagulation, CTA with possible intervention then would consider possible flex sigmoidoscopy however low yield for possibility of treatment/ability to stop bleeding likely given tumor bleeding
-Discussed with patient's Tracey Redd [phone]
-Continue supportive management as per primary team
-
-
Thank you for consultation and allowing me to participate in the patient's care. Please call the business economist GI physician during the after hours with any questions or concerns.
[2024-08-06 10:23] LABS: Blood Urea Nitrogen 30 mg/dl (9-20); Calcium 8.7 mg/dl (8.4-10.2); Carbon Dioxide 19 mmol/L (22-30); Chloride 104 mmol/L (98-107); Estimated Creatinine Clearance 54 ml/min; Glucose 156 mg/dl (70-99); Magnesium 2.1 mg/dl (1.6-2.3); Phosphorus 4.2 mg/dl (2.5-4.5); Potassium 3.6 mmol/L (3.5-5.1); Sodium 135 mmol/L (135-145); eGFR 37.04
--- NOTE | 2024-08-06 10:37 | W.PN.INTV ---
Addendum entered and electronically signed by Ok Olguin MD 08/06/24 15:38:
Patient seen and examined independently by myself. Resident note reviewed below, agree with plan
Patient remains critically ill
CT angiogram obtained this morning due to acute onset lower GI bleed this morning, 1 L of bright red blood
CTA negative for active bleeding
Patient remains on vasopressin, Peter-Synephrine, transition from phenylephrine overnight
Remains on volume-cycled ventilation
Heparin therapy discontinued this morning
Physical exam
ET tube in place, patient coughs with suction
Chest exam clear, abdominal exam mildly distended
A-line, PICC line, midline, right IJ intact
Data reviewed
Hemoglobin 10.3 this morning, 9.4 around noon
CTA without evidence of active bleeding
A/P
Continue with volume-cycled ventilation
Decrease PEEP, wean FiO2
No plans for weaning sedation or SBT at this time given active bleeding
Follow hemoglobin, transfuse as needed
Will have to remain off heparin therapy
Therapeutic options are lacking at this time per discussion with colorectal surgery and GI
Tube feeds held
Continue with current level of sedation, decrease Ativan [id number] to lower dose 0.5 mg
Maintain phenylephrine, vasopressin for now
LFTs trending towards improvement
Continue CRRT, nephrology following
Remains on antibiotics, cefazolin
Infectious disease following
Given underlying advanced colorectal cancer, long-term prognosis poor
Ongoing discussion with regarding aggressiveness of care
Reviewed with critical care nursing, respiratory care, pharmacy, case management, colorectal surgery, GI, primary service
TCCT 40 min
Original Note:
Today's Communication / Plan
Recommendations
Monitor H&H every 6 hours
Crossmatch blood
CRRT on hold for CT angio
CTA, if positive IR embolization if negative-GI to decide about flex sigmoidoscopy
Decreased PEEP to 5
Condition critical, family aware
Revisit CODE STATUS
Assessment
-
Impression
Patient is a 64-year-old male, recently diagnosed with colorectal carcinoma and the disease is presumably advanced, had a lung nodule that was supposed to be biopsied but patient ended up in the ER for dizziness secondary to recent atrial
fibrillation. As his workup was being done in the ER for CHRISS and anemia along with dizziness, patient decompensated, had acute respiratory failure, nonresponsive to nonrebreather mask and noninvasive ventilation, ended up in ICU, rapid response was
called, had to be intubated.
Currently patient is critically ill, has multiorgan failure, including acute respiratory failure, acute renal insufficiency, hypoxic liver, and recently had bloody bowel movements.
Heparin infusion held secondary to the GI bleed. Colorectal surgery evaluated the patient and recommended CTA, GI is also on board.
Patient's condition is critical family aware and goals of care including CODE STATUS to be reviewed.
Assessment:
#Acute rectal bleeding in the setting of colorectal carcinoma/heparin infusion
#Acute respiratory failure
#CHRISS now on CRRT
#Streptococcal bacteremia
#Acute HFpEF exacerbation
#Metabolic acidosis with increased anion gap due to severe CHRISS and lactic acidosis
#Transaminitis secondary to hypoxic liver
Plan:
#Acute rectal bleeding in the setting of colorectal carcinoma/heparin infusion
Patient had bloody bowel movements in the morning
Roughly lost about 1 L of blood
Colorectal surgery consulted-plan to do CTA
If CTA positive-IR will do embolization
If CTA negative-Flex sigmoidoscopy
GI on board-thinks flex sig might would be more risky at this time and explained it to the family
Continue to trend H&H 6 hourly
Held heparin
Transfuse blood if needed
#Acute respiratory failure
Patient has been on mechanical ventilation since 07/31/2024
Spontaneous breathing trial given yesterday, unsuccessful, patient became tachypneic
Based on ABGs, vent settings readjusted
Since patient had a recent episode of bloody bowel movements today
No SBT today
Chest x-ray every couple of days
Morning ABGs daily to help assess the vent settings and adjustments needed
#CHRISS now on CRRT
Patient has had worsening renal creatinine function --->placed on CRRT on August 01, 2024
Given the recent GI bleed hold CRRT for now
Continue to trend urine output, serum creatinine, lactic acid, and bicarb
Serum Cr 1.9,HCO3 is 23
#Streptococcal bacteremia
Patient remains critically ill and is WBC count is trending up
Currently on cefazolin 2 g 8 hourly for Streptococcus bacteremia
TTE on 07/31 without vegetations-May consider to repeat if bacteremia persists/ MSSA pneumonia with septic shock
Blood cultures in progress, no growth to date patient is still in shock and remains on vasopressors
Levophed stopped due to recurrent atrial fibrillation episodes
Currently on peter and vasopressin
Titrate pressors as needed, WBC charting, temperature charting, continue to follow blood cultures.
#Acute HFpEF exacerbation secodary to A-fib with RVR
Patient presented with rapid development of pulmonary edema
Updated echo-normal biventricular function with normal ejection fraction
Cardio consult appreciated-suggest heart failure with preserved ejection fraction given the recent pulmonary edema
cause of pulmonary edema could be the rapid A-fib
Patient had A-fib with RVR on presentation
Good heart rate control now
Placed on heparin infusion based on [id number] score/malignancy
Held heparin today-given recent bloody bowel movements
Risks versus benefit assessed for heparin infusion
Continue to monitor the heart rate
Could use a pacemaker in the future, given the patient survives current critical condition
#Metabolic acidosis with increased anion gap due to severe CHRISS and lactic acidosis
Continue to monitor serum creatinine
Continue to monitor lactate and bicarb levels
#Transaminitis secondary to hypoxic liver
Patient had a shock liver response to hypoperfusion secondary to septic shock/cardiogenic shock
AST was greater than 7500 and ALT was greater than 4000
Liver enzymes trending down
Limit Tylenol to less than 2 g daily to avoid liver damage
Family is aware of the patient's critical condition, plan to discuss CODE STATUS with the family given the recent events
#Other Medical conditions
#Metastatic colorectal cancer with suspected lung metastasis (diagnosed via colonoscopy on 06/22/2024 with partially obstructing tumor seen in the rectum 4 cm from the anal verge, invasive low-grade colorectal adenocarcinoma)
#PET avid 2.2 cm right upper lobe nodule originally planned for robotic bronchoscopy on 08/03/2024 (will be deferred for now)
#HAN on auto CPAP
#History of psoriasis previously on Enbrel
#History of hepatitis A
#History of COVID-19 (04/03)
#Restrictive lung disease (suspected based on spirometry from 05/15/2021, however patient was coughing during testing and post-bronchodilator FVC was WNL at 84% predicted
CODE status-currently full code, needs to be reviewed given the critical condition
DVT prophylaxis-held heparin today due to bleeding
Subjective Dataa
Subjective Data
Date of Service:
Date of Service: August 06, 2024
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
Subjective:
Patient critically ill
Multiorgan failure including acute respiratory failure with mechanical intubation hypoxic liver, sepsis, lactic acidosis
Overnight patient had bloody bowel movements, he had approximately 1 L blood loss roughly
Sedated and on triple support
Poor prognosis, family aware
Review of Systems
General: Unobtainable - Pat Unresp and Unobtainable - Sedation
Objective Data
Data Reviewed
Vital Signs / I&O / Oxygen:
Vital Signs
Temp Pulse Resp BP Pulse Ox
97.5 F 60 18 125/32 98
08/06/24 07:36 08/06/24 06:30 08/06/24 06:30 08/06/24 00:00 08/06/24 09:49
Intake and Output
08/05/24 08/06/24 08/07/24
06:59 06:59 06:59
Intake Total 3849.3 / 4093.8 3304.1 / 3348.6 176.8 / 176.8
Output Total 8042 / 8330 3497 / 4857 344 / 344
Balance -4192.7 / -4281.2 -1402.9 / -1500.4 -167.2 / -167.2
SaO2 [A/C] 98
SaO2 98
Physical Exam
General: Other (N.p.o. till further orders due to recent GI bleed) and Other (Patient intubated, sedated and on vasopressors)
HEENT: Normocephalic, Anicteric and Other (ETT in place)
Cardiovascular: S1-S2, Regular Rhythm and Peripheral Edema (+1 lower extremity edema bilaterally, With bilateral mottling of legs)
Respiratory: ET Tube (Mechanical breath sounds heard bilaterally, Vent settings RR18/ Vt500/ [id number]/ peep5)
GI: Soft, Distended (Abdominal obesity), Normal Bowel Sounds and Other (Patient had a large pool of blood under her buttocks)
Neurology: Tremors (negative) and Other (Pupils +1 mm bilaterally; sedated )
Labs/Micro/Reports
Lab Data
08/06/24 08:03
Laboratory Results
08/05/24 08/05/24 08/06/24
13:56 20:09 01:57
APTT 115.6 H 113.4 H 105.4 H
pH
pCO2
pO2
HCO3
O2 Delivery Level
08/06/24 08/06/24
03:26 08:03
APTT 72.4 H
pH 7.41
pCO2 35
pO2 137 H
HCO3 22.2
O2 Delivery Level
Microbiology
07/31/24 12:18 Endotracheal Respiratory Culture - Final
S aureus-Methicillin Sensitive
07/31/24 12:18 Endotracheal Gram Stain - Final
08/03/24 03:41 Blood/Venous Blood Culture - Preliminary
No Growth in 72 hours- Final report to follow
08/03/24 03:28 Blood/Venous Blood Culture - Preliminary
No Growth in 72 hours- Final report to follow
08/01/24 18:19 Blood/Venous Blood Culture - Preliminary
No Growth in 4 days- Final report to follow
08/01/24 15:36 Blood/Venous Blood Culture - Preliminary
No Growth in 4 days- Final report to follow
07/31/24 07:54 Blood/Venous Blood Culture - Final
Streptococcus salivarius
07/31/24 07:54 Blood/Venous Gram Stain - Final
07/31/24 07:54 Blood/Venous Blood Culture - Final
Streptococcus salivarius
07/31/24 07:54 Blood/Venous Gram Stain - Final
--- NOTE | 2024-08-06 11:20 | W.PN.NEPH.PH ---
Today's Communication / Plan
-
holding CRRT for CT angio
likely resume later today
Assessment/Plan
-
64-year-old man with recently diagnosed colorectal cancer with possible lung metastasis and recent diagnosis of atrial fibrillation who presented with lightheadedness and dizziness after starting oral metoprolol as an outpatient and presented to
[facility] emergency department. He presented in acute kidney injury admitted to the floors upgraded to the ICU for increased work of breathing ultimately intubated in the ICU with hyperkalemia.
Patient is critically ill on pressor support essentially anuric.
Positive blood cultures pending organism. Staph aureus sputum culture.
Renal consult for acute kidney injury and hyperkalemia
Impression.
Acute kidney injury and hyperkalemia secondary to septic shock.
Colorectal cancer newly diagnosed June 2024 with possible lung metastasis
Atrial fibrillation on oral anticoagulation
VDRF
Bacteremia/sepsis
Plan.
Concern of GIB today and for CT angio now
off CRRT since 10:30
wt no change though net neg balance
follow labs later and likely resume CRRT
he remains still anuric
wean pressors as allowed, MAP >65
d/w nursing
critical care time 31 minutes
-
-
Date of Service: August 06, 2024
CC / HPI / ROS
-
Chief Complaint:
Septic shock
History of Present Illness:
critically ill in ICU on vent/pressors
CRRT off since 10:30
grossly negative I/O from UF but no change in wt
K controlled
LFTs improving
Anuric
burgundy stool per nursing, hb 10.3
Review of Systems:.
sedated on vent
Labs
-
Labs:
WBC 21.1 10^3/uL (4.8-10.8) H 08/06/24 03:26
RBC 3.88 10^6/uL (4.70-6.10) L 08/06/24 03:26
Plt Count 103 10^3/uL (130-400) L 08/06/24 03:26
Sodium 135 mmol/L (135-145) 08/06/24 08:03
Potassium 3.6 mmol/L (3.5-5.1) 08/06/24 08:03
Chloride 104 mmol/L (98-107) 08/06/24 08:03
Carbon Dioxide 19 mmol/L (22-30) L 08/06/24 08:03
BUN 30 mg/dl (9-20) H 08/06/24 08:03
Creatinine 2.0 mg/dL (0.7-1.3) H 08/06/24 08:03
eGFR 37.04 08/06/24 08:03
Glucose 156 mg/dl (70-99) H 08/06/24 08:03
Calcium 8.7 mg/dl (8.4-10.2) 08/06/24 08:03
Phosphorus 4.2 mg/dl (2.5-4.5) 08/06/24 08:03
Ket-D-Fgztnlcppka Pept 2850 pg/ml 08/06/24 03:26
Albumin Cancelled 08/06/24 06:00
Physical Exam
-
Vital Signs:
Vital Signs
Temp Pulse Resp BP Pulse Ox
97.5 F 60 18 125/32 98
08/06/24 07:36 08/06/24 06:30 08/06/24 06:30 08/06/24 00:00 08/06/24 09:49
Cardiovascular:: Regular rate and rhythm
Respiratory:: Bilateral: Coarse
Lung Excursion:: Abnormal
Abdomen:: Nontender and Soft
Extremity Edema:: +1: Bilateral:
Alvarez Catheter: Yes
[2024-08-06 12:16] LABS: Glucose - Point of Care 78 mg/dl (70-99)
--- NOTE | 2024-08-06 12:30 | PTCARENOTE ---
Colorectal and GI MD teams to bedside this AM. D/t ongoing lg amt of burgundy/liq stool further orders received for CT of abd. Nephrology, Dr. Milton, made aware of transport need. CRRT discontinued per orders prior to transport. Pt. transported
to CT scan w RNx2 and RT; scan completed. Due to impending IR need; patient transported to IR and boarding until tentative procedure. This RN remains 1:1 w patient in IR. GI/colorectal made aware scan completed and pt. location; awaiting plan.
Remains on brandi/vaso/dex/fent/protonix- see flow sheet. Safe environment maintained.
[2024-08-06] MEDS: UNASYN IV (12:35)
[2024-08-06 12:42] LABS: Hemoglobin 9.4 g/dL (13.0-18.0)
[2024-08-06 12:48] LABS: Ionized Calcium 1.18 mMOL/L (1.15-1.33)
[2024-08-06 13:32] LABS: Blood Urea Nitrogen 29 mg/dl (9-20); Calcium 7.4 mg/dl (8.4-10.2); Carbon Dioxide 18 mmol/L (22-30); Chloride 108 mmol/L (98-107); Estimated Creatinine Clearance 54 ml/min; Glucose 136 mg/dl (70-99); Magnesium 2.1 mg/dl (1.6-2.3); Phosphorus 3.5 mg/dl (2.5-4.5); Potassium 3.5 mmol/L (3.5-5.1); Sodium 136 mmol/L (135-145); eGFR 37.04
--- NOTE | 2024-08-06 13:57 | PTCARENOTE ---
CT scan reviewed by colorectal team; no plan for IR procedure per MD. Pt. transported via bed w RNx2 and RT back to rm [id number], no events during transport. Complete hygiene provided upon return to . Small amt of burgundy stool in rectal inc pouch.
H&H results reported to GI/colorectal. Heparin to remain off and TF to remain on hold. In touch w Nephrology regarding continuation of CRRT; awaiting plan/orders. Repositioned per protocol. @ bedside, updated.
[2024-08-06] MEDS: KCL 100 IV (14:47)
[2024-08-06] MEDS: CALCIUM GLUCONATE 100 IV (14:47)
[2024-08-06] MEDS: RFP-401 HD Soln (K+ 4 mEq/L) 15000 ML CRRT-IRR (16:10)
--- NOTE | 2024-08-06 16:36 | W.PN.HOSP.TC ---
Today's Communication/Plan
-
monitor Hb and bleeding off AC
wean pressors/vent/sedation as able
continue IV abx
Assessment / Plan
Assessment / Plan
Mr. Иван Redd is a 64-year-old man with a past medical history of recently diagnosed colorectal cancer, persistent atrial fibrillation, essential hypertension who presents to the ER with dizziness. Patient reports feeling unwell for the last
2 days. He was recently started on metoprolol and Eliquis for atrial fibrillation. Overnight admission patient developed acute respiratory failure in setting of high fever with finding MSSA in blood and sputum; development of renal failure
requiring CRRT.
Assessment:
Acute Respiratory Failure requiring intubation
MSSA Bacteremia and Pneumonia
Septic Shock
Acute Renal Failure with acute HFpEF (pulm edema)
Hyperkalemia
Lactic Acidosis
Non-Ischemic Myocardial Injury
-s/p intubation morning of 07/31 during rapid response
-initial concern for flash pulmonary edema given acute SOB, CXR read and patient had been receiving IVF. IV lasix given without significant output and worsening renal function; renal consulted and patient initiated on CRRT on 08/01 given worsening
renal function, essentially no urine output and hyperkalemia
-08/01: culture results showing MSSA in Sputum and Blood
-TTE results above - no vegetation
-continue IV Unasyn, day 1 per ID
-continue Pressor support
-sedation; SAT/SBT; vent management per Service Station Manager
-Trop peaked at 0.749
-Service Station Manager Consult appreciated
-Cardiology consult appreciated
-Nephrology consult appreciated
Acute lower GI bleed
Known history of colorectal Adenocarcinoma with possible lung mets
- s/p CTA without active bleeding source. No role for IR intervention. Source felt be related to known colon masses, although diverticular disease or AVMs possible
- Schedule for lung biopsy as outpatient
- patient had not yet started chemotherapy
Paroxysmal Atrial Fibrillation
- current in NSR
- off anticoagulation with active bleed episode
- off Toprol with pressor requirements
- appreciate Cardiology
Constipation
- bowel regimen ordered
Essential Hypertension
- hold [employer] Olmesartan-HCTZ, Metoprolol
Hyperlipidemia
- hold rosuvastatin
DVT ppx: SCDs
Code: Full
Total Critical Care Time 42 minutes. I was immediately available to the patient and staff. I personally examined, reviewed labs, diagnostic images/reports, interpretations, treatment plans, discussed patient care with other providers and family
or caregivers (if patient is unable to make decisions), entered orders as appropriate and documented the medical record.
Anticipated Discharge: > 48 hours
Subjective/Interval History
-
Date of Service: August 06, 2024
earlier today with concern for GI bleed
s/p CTA without active bleeder; no IR intervention performed
Remains intubate/sedated
Objective Data
-
Labs:
Laboratory Results
08/06/24 08/06/24 08/06/24
06:15 08:03 12:30
Hgb 10.3 L 9.4 L
Hct 32.2 L 30.0 L
APTT 72.4 H
Sodium 135 136
Potassium 3.6 3.5
Chloride 104 108 H
Carbon Dioxide 19 L 18 L
BUN 30 H 29 H
Creatinine 2.0 H 2.0 H
Glucose 156 H 136 H
Calcium 8.7 7.4 L
08/06/24 08/06/24
16:30 18:00
Hgb Pending
Hct Pending
APTT
Sodium Pending
Potassium Pending
Chloride Pending
Carbon Dioxide Pending
BUN Pending
Creatinine Pending
Glucose Pending
Calcium Pending
Vital Signs:
Vital Signs
Temp Pulse Resp BP Pulse Ox
98.0 F 67 9 125/32 100
08/06/24 12:11 08/06/24 14:00 08/06/24 14:00 08/06/24 00:00 08/06/24 16:15
I&O
08/05/24 08/06/24 08/07/24
06:59 06:59 06:59
Intake Total 3849.3 / 4093.8 3304.1 / 3348.6 673.0 / 673.0
Output Total 8042 / 8375 4707 / 4849 344 / 344
Balance -4192.7 / -4281.2 -1402.9 / -1500.4 329.0 / 329.0
Physical Exam
-
General: No Apparent Distress and Intubated
HEENT: Normocephalic and Atraumatic
Respiratory: Negative Wheezes
Cardiac: Regular Rhythm and S1/S2
GI: Soft
Neuro: Sedated
Data Reviewed
-
Critical Care Time (in minutes): 42
Labs: Labs Reviewed by me
--- NOTE | 2024-08-06 16:45 | PTCARENOTE ---
New CRRT cartridge prepared; connections made w sterile process; CRRT in progress @ this time per orders via new filter- see flow sheet. Protocol labs sent; awaiting results. Dr. Milton to bedside, aware of above findings. Repositioned per
protocol. remains @ bedside.
[2024-08-06 16:51] LABS: Ionized Calcium 1.28 mMOL/L (1.15-1.33)
--- NOTE | 2024-08-06 17:04 | W.PN.UPDATE ---
Update Note
Progress Note Update
CRRT notes:
Pt seen during CRRT
resumed this PM
dialysate 2lit/hr, 4k bath
bld flow 250-300ml/min
net neg UF 50cc/hr, titrate as need
d/w nursing
f/u labs
adjust meds renally, GFR 33cc/min
[2024-08-06] MEDS: PROTONIX IV (17:12)
[2024-08-06 17:25] LABS: Blood Urea Nitrogen 37 mg/dl (9-20); Calcium 8.7 mg/dl (8.4-10.2); Carbon Dioxide 19 mmol/L (22-30); Chloride 104 mmol/L (98-107); Estimated Creatinine Clearance 47 ml/min; Glucose 113 mg/dl (70-99); Magnesium 2.2 mg/dl (1.6-2.3); Potassium 3.7 mmol/L (3.5-5.1); Sodium 133 mmol/L (135-145); eGFR 31.32
[2024-08-06 18:02] LABS: Hematocrit 28.5 % (39.0-52.0)
[2024-08-06 18:03] LABS: Glucose - Point of Care 62 mg/dl (70-99)
--- NOTE | 2024-08-06 18:28 | PTCARENOTE ---
1749 blood glucose- finger stick. Disregard; recheck arterial blood glucose was 109.
--- NOTE | 2024-08-06 19:14 | PTCARENOTE ---
Assumed care of pt. approx 1900.
remains intubated/sedated. Sedation gtt as follows
-Dex/Fent --> see titration flowsheets for details.
Still x2 pressed w/ Phenylephrine/vasopressin --> see titration flowsheets for details.
Started back up on CVVHD bath changed to 4K, net negative 50 pull, circuit running w.o issues at this time, blood flow rate increased due to systemic heparin gtt on hold.
see assessment flowsheet for details.
bedside, plan of care explained, no further questions at this time.
[2024-08-06 20:09] LABS: Ionized Calcium 1.26 mMOL/L (1.15-1.33)
[2024-08-06 20:35] LABS: Blood Urea Nitrogen 35 mg/dl (9-20); Calcium 8.4 mg/dl (8.4-10.2); Carbon Dioxide 22 mmol/L (22-30); Chloride 104 mmol/L (98-107); Estimated Creatinine Clearance 49 ml/min; Glucose 120 mg/dl (70-99); Magnesium 2.1 mg/dl (1.6-2.3); Phosphorus 3.4 mg/dl (2.5-4.5); Potassium 3.9 mmol/L (3.5-5.1); Sodium 134 mmol/L (135-145); eGFR 33.04
[2024-08-06] MEDS: RFP-401 HD Soln (K+ 4 mEq/L) 5000 ML CRRT-IRR (23:07)
--- NOTE | 2024-08-07 00:14 | PTCARENOTE ---
Pt. assessment unchanged.
[2024-08-07 00:16] LABS: Ionized Calcium 1.24 mMOL/L (1.15-1.33)
[2024-08-07] MEDS: PRECEDEX 100 IV ×4 (00:21→23:19)
[2024-08-07] MEDS: UNASYN IV ×5 (00:21→23:04)
[2024-08-07 00:35] LABS: Hematocrit 28.2 % (39.0-52.0); Hemoglobin 9.4 g/dL (13.0-18.0)
[2024-08-07 00:41] LABS: Blood Urea Nitrogen 34 mg/dl (9-20); Calcium 8.2 mg/dl (8.4-10.2); Carbon Dioxide 23 mmol/L (22-30); Chloride 103 mmol/L (98-107); Estimated Creatinine Clearance 49 ml/min; Glucose 121 mg/dl (70-99); Magnesium 2.1 mg/dl (1.6-2.3); Phosphorus 3.3 mg/dl (2.5-4.5); Potassium 3.8 mmol/L (3.5-5.1); Sodium 133 mmol/L (135-145); eGFR 33.04
[2024-08-07] MEDS: NOVOLOG FLEXPEN-MODERATE RESISTANCE SC ×5 (02:20→23:18)
[2024-08-07 02:31] LABS: Glucose - Point of Care 108 mg/dl (70-99)
--- NOTE | 2024-08-07 03:31 | PTCARENOTE ---
No change in patient assessment.
CVVHD running w.o issues, access C/D/I, slightly elevated chamber pressures, flow rate decreased w/n order parameters. pt. remains anuric.
[2024-08-07 03:54] LABS: Ionized Calcium 1.25 mMOL/L (1.15-1.33)
[2024-08-07] MEDS: NEO-SYNEPHRINE 1% 260 MG IV ×2 (04:03→16:08)
[2024-08-07 04:31] LABS: Blood Urea Nitrogen 34 mg/dl (9-20); Calcium 8.2 mg/dl (8.4-10.2); Carbon Dioxide 23 mmol/L (22-30); Chloride 106 mmol/L (98-107); Estimated Creatinine Clearance 52 ml/min; Glucose 119 mg/dl (70-99); Magnesium 2.1 mg/dl (1.6-2.3); Phosphorus 3.4 mg/dl (2.5-4.5); Sodium 136 mmol/L (135-145); eGFR 34.93
[2024-08-07 05:12] VITALS: BMI 42.2
[2024-08-07 05:13] LABS: Hematocrit 29.7 % (39.0-52.0); Hemoglobin 9.6 g/dL (13.0-18.0); Mean Corp Hgb Conc. 32.3 g/dL (33.0-37.0); Mean Corpuscular Hgb 27.5 pg (27.0-31.0); Mean Corpuscular Volume 85.1 fL (80.0-94.0); Mean Platelet Volume 11.5 fL (7.4-10.4); Platelet Count 84 10^3/uL (130-400); Red Blood Cell Count 3.49 10^6/uL (4.70-6.10); Red Cell Dist. Width 18.4 % (11.5-14.5); White Blood Cell Count 17.9 10^3/uL (4.8-10.8)
[2024-08-07] MEDS: RFP-401 HD Soln (K+ 4 mEq/L) 5000 ML CRRT-IRR (05:43)
[2024-08-07 06:12] LABS: Glucose - Point of Care 109 mg/dl (70-99)
[2024-08-07] MEDS: MIRALAX TUBE ×2 (06:59→20:55)
[2024-08-07] MEDS: COLACE LIQUID TUBE ×2 (06:59→20:55)
[2024-08-07] MEDS: SEROQUEL TUBE (06:59)
[2024-08-07] MEDS: PROTONIX IV 40 MG IV (07:04)
[2024-08-07] MEDS: NSS (PRESERVATIVE FREE) 10 ML IV (07:05)
--- NOTE | 2024-08-07 08:00 | PTCARENOTE ---
Received pt @ change of shift intubated/sedated w b/l soft limb and 4 rails restraints- see flow sheet. Opens eyes spont to verbal stim; tracking present but does not follow commands. PERRLA, 3mm/sluggish. +coug/gag/corneal. SB-SR on monitor w
PVC's. +1 anasarca. Doppler pedals. SpO2 98% on vent settings AC18/500/.40/+5; #8.0 ett, 25 @ lip in center. Auscultated dim/coarse breath sounds throughout. Small amt thick/edouard secretions from ett. Hypoactive BS, abd round/obese/soft. Inc of 1
burgundy stool overnight; none on this shift thus far. OG tube secured @ 60cm; clamped; TF remain off. Thermistor bourgeois in place; oliguric. R IJ HD cath w CRRT per orders-see flow sheet. R DL PICC w brandi/vaso/dex/fent- see flow sheets. L midline
patent, dressing c/d/i. R rad A-line transduced, calibrated, monitored; all ports patent and secured. Complete hygiene provided and patient repositioned per protocol. Safe environment maintained.
--- NOTE | 2024-08-07 08:40 | W.PN.INTV ---
Addendum entered and electronically signed by Ok Olguin MD 08/07/24 12:27:
Patient is seen and examined independently by myself. Resident note reviewed below, agree with plan and assessment
Patient remains critically ill
Seems that lower GI bleed has slowed down, less bright red blood,
Hemoglobin remains stable
White count trending down
Physical exam
Appears comfortable, chest exam is clear, no wheezes
Abdominal exam benign
No murmurs
1+ edema
Data reviewed
Creatinine 2.1, hemoglobin 9.6, platelets low 84
A/P
Continue with supportive care remains on vasopressin, phenylephrine
Wean pressors as able
Sedation vacation today to assess wean
Okay to give meds via OG tube
Tube feeds held
Remains n.p.o.
Continue CRRT per nephrology
Remains on Unasyn
Reviewed with critical care nursing, respiratory care, pharmacy
TCCT 32 min
Original Note:
Today's Communication / Plan
Recommendations
Coagulation profile with fibrinigen levels to assess DIC
Repeat blood cultures and TTE to assess source of embolus/thrombus resulting in splenic infarct
SBT/SAT trial
Continue CRRT
Critical condition
SCD's for DVT prophylaxis
Keep NPO/can give meds
Assessment
-
Impression
Patient is a 64-year-old male, recently diagnosed with colorectal carcinoma and the disease is presumably advanced, had a lung nodule that was supposed to be biopsied but patient ended up in the ER for dizziness secondary to recent atrial
fibrillation. As his workup was being done in the ER for CHRISS and anemia along with dizziness, patient decompensated, had acute respiratory failure, nonresponsive to nonrebreather mask and noninvasive ventilation, ended up in ICU, rapid response was
called, had to be intubated.
Currently patient is critically ill, has multiorgan failure, including acute respiratory failure, acute renal insufficiency, hypoxic liver, and recently had bloody bowel movements.
Heparin infusion held secondary to the GI bleed. Colorectal surgery evaluated the patient and recommended CTA, which came back negative for any active bleed,GI is also on board.
Patient's condition is critical family aware and goals of care including CODE STATUS to be reviewed.
Assessment:
#Acute rectal bleeding in the setting of colorectal carcinoma/heparin infusion
#Acute respiratory failure
#CHRISS now on CRRT
#Streptococcal bacteremia
#Acute HFpEF exacerbation
#Metabolic acidosis with increased anion gap due to severe CHRISS and lactic acidosis
#Transaminitis secondary to hypoxic liver
Plan:
#Acute rectal bleeding in the setting of colorectal carcinoma/heparin infusion
Patient had bloody bowel movements on 08/06/2024 with roughly 1 L of blood loss
Colorectal surgery consult apprec-CTA negative
Continue to trend H&H 6 hourly
Held heparin
NPO TFO/Can still give meds
ID consult apprec- concern for new splenic infarction seen on CTA - embolic vs thrombotic
Recs- repeat blood cultures x2(strep.salivarius-contaminant),recheck sputum culture(07/31-MSSA)
- reassess TTE for sources
#Acute respiratory failure
Patient has been on mechanical ventilation since 07/31/2024
Plan to give SAT/SBT today
Based on ABGs, vent settings readjusted
Chest x-ray 08/06-Mild bibasilar pneumonia-improvement on right side/left side static
#CHRISS now on CRRT
Patient has had worsening renal creatinine function --->placed on CRRT on August 01, 2024
Given the recent GI bleed(08/06/24)-held CRRT briefly-restarted in PM
Continue to trend urine output, serum creatinine, lactic acid, and bicarb
Serum Cr 2.1,HCO3 is 23
#Streptococcal bacteremia
Patient remains critically ill
ID consult apprec--Antibiotic switched to unasyn by ID(DAY-2)
TTE on 07/31 without vegetations-May consider to repeat if bacteremia persists/ MSSA pneumonia with septic shock
Blood cultures in progress, no growth to date from blood cultures sent on 08/03/2024-- patient is still in shock and remains on vasopressors
On vasopressors vasopressin 0.03mcg/kg/min and Peter-synephrine 150mcg/kg/min
Titrate pressors as able, WBC charting, temperature charting, continue to follow blood cultures.
New splenic infarct concerning-recheck echo and blood cultures
#Acute HFpEF exacerbation secodary to A-fib with RVR/Acute diastolic CHF
Patient presented with rapid development of pulmonary edema
Updated echo(08/04/2024)-normal biventricular function with normal ejection fraction
Cardio consult appreciated-suggest heart failure with preserved ejection fraction given the recent pulmonary edema
Cause of pulmonary edema could be the rapid A-fib
Patient had A-fib with RVR on presentation
Good heart rate control now
Placed on heparin infusion based on [id number]-LUKq score/malignancy-off heparin now-given recent bloody bowel movements
Continue to monitor the heart rate
Could use a pacemaker in the future, given the patient survives current critical condition
#Metabolic acidosis with increased anion gap due to severe CHRISS and lactic acidosis
CRRT was briefly helf for [id number]-[id number] negative-restarted CRRT
Continue to monitor serum creatinine-Cr still around 2.0
lactate 1.7(08/06/2024)-can stop trending
HCO3--22.2
Plan SAT/SBT trial today
#Transaminitis secondary to hypoxic liver
Patient had a shock liver response to hypoperfusion secondary to septic shock/cardiogenic shock
AST was greater than 7500 and ALT was greater than 4000
Liver enzymes trending down(AST 629,ALT 120,ALP 361,Total power 3.8/Direct power 3.2)
Limit Tylenol to less than 2 g daily to avoid liver damage
Hold statin with elevated LFTs.
Family is aware of the patient's critical condition
#Other Medical conditions
#Metastatic colorectal cancer with suspected lung metastasis (diagnosed via colonoscopy on 06/22/2024 with partially obstructing tumor seen in the rectum 4 cm from the anal verge, invasive low-grade colorectal adenocarcinoma)
#PET avid 2.2 cm right upper lobe nodule originally planned for robotic bronchoscopy on 08/03/2024 (will be deferred for now)
#HAN on auto CPAP
#History of psoriasis previously on Enbrel
#History of hepatitis A
#History of COVID-19 (04/03)
#Restrictive lung disease (suspected based on spirometry from 05/15/2021, however patient was coughing during testing and post-bronchodilator FVC was WNL at 84% predicted
CODE status-currently full code, needs to be reviewed given the critical condition
DVT prophylaxis-Sequential compression devices
Subjective Dataa
Subjective Data
Date of Service:
Date of Service: August 07, 2024
Chief Complaint: Quality Rn Follow Up, Pulmonary Follow Up and Vent Management Follow Up
Subjective:
Patient's condition is static
On mechanical ventilation,vasopressors,and sedation
On CRRT
Had a bloody/black bowel movement in the morning
Review of Systems
General: Unobtainable - Pat Unresp and Unobtainable - Sedation
Objective Data
Data Reviewed
Vital Signs / I&O / Oxygen:
Vital Signs
Temp Pulse Resp BP Pulse Ox
97.9 F 57 18 125/32 96
08/07/24 08:06 08/07/24 06:30 08/07/24 06:30 08/06/24 00:00 08/07/24 08:04
Intake and Output
08/06/24 08/07/24 08/08/24
06:59 06:59 06:59
Intake Total 3304.1 / 3348.6 1903.9 / 1981.9 148.7 / 148.7
Output Total 4707 / 4849 1892 213 / 213
Balance -1402.9 / -1500.4 10.9 / -3.1 -64.3 / -64.3
SaO2 [A/C] 100
SaO2 96
Physical Exam
General: Other (N.p.o. till further orders due to recent GI bleed) and Other (Patient intubated, sedated and on vasopressors)
HEENT: Normocephalic, Anicteric and Other (ETT in place)
Cardiovascular: S1-S2, Regular Rhythm and Peripheral Edema (+1 lower extremity edema bilaterally, With bilateral mottling of legs)
Respiratory: ET Tube (Mechanical breath sounds heard bilaterally, Vent settings RR18/ Vt500/ CsP325/ peep5)
GI: Soft, Distended (Abdominal obesity) and Normal Bowel Sounds
Neurology: Other (Pupils +1 mm bilaterally; sedated )
Skin: Warm and Dry
Labs/Micro/Reports
Lab Data
08/07/24 04:52
Laboratory Results
08/06/24
08:03
APTT 72.4 H
Microbiology
08/03/24 03:28 Blood/Venous Blood Culture - Preliminary
No Growth in 4 days- Final report to follow
08/03/24 03:41 Blood/Venous Blood Culture - Preliminary
No Growth in 4 days- Final report to follow
08/01/24 18:19 Blood/Venous Blood Culture - Final
No Growth - Final Report
08/01/24 15:36 Blood/Venous Blood Culture - Final
No Growth - Final Report
07/31/24 12:18 Endotracheal Respiratory Culture - Final
S aureus-Methicillin Sensitive
07/31/24 12:18 Endotracheal Gram Stain - Final
[2024-08-07 08:41] LABS: Ionized Calcium 1.24 mMOL/L (1.15-1.33)
--- NOTE | 2024-08-07 09:02 | W.PN.ID1 ---
Date of Service
Date of Service: August 07, 2024
Today's Communication
CTA with e/o new splenic infarction
repeat blood and sputum cultures
repeat TTE
continue unasyn
Assessment / Plan
Shock - cardiogenic vs septic, possibly also with a hypovolemic component as now with GI bleeding
S aureus (MSSA) Pneumonia
Strep salivarius bacteremia x 2 sets drawn at the same time - most likely contaminant
Septic shock, remains on pressors
CHRISS on CRRT
Class III Obesity
Colorectal Adenocarcinoma - not yet on treatment
Psoriatic Arthritis - currently off of Enbrel since ~05/03
- new splenic infarction seen on CTA - embolic vs thrombotic
- repeat blood cultures x2
- reassess TTE for sources
- would still consider S salivarius most likely contaminant unless new evidence of valvular lesion
- recheck sputum culture
- MSSA from sputum 07/31
- CTA without a clear source of bleeding beyond the known cancer
- ongoing shock - c/w unasyn day 2
follow pressor requirements, wbc, physical exam. Patient remains critically ill.
Chief Complaint
-: Pneumonia (S aureus), Bacteremia (streptococcus) and Other (shock)
Subjective / Review of Systems
hypothermia improved
phenylephrine titrated doewn to 140 mcg/min, vaso remains on
one burgundy stool overnight
CRRT was restarted
CTA: no active GI bleeding, enhancing masses seen, splenic infarct - new
Vital Signs / Physical Exam
Vital Signs
Vital Signs
Temp Pulse Resp BP Pulse Ox
97.9 F 58 18 125/32 100
08/07/24 08:06 08/07/24 08:45 08/07/24 08:45 08/06/24 00:00 08/07/24 08:45
Physical Exam
Constitutional: No Acute Distress, Acutely Ill, Chronically Ill and Obese
Cardiovascular: Regular Rate and S1/S2; Negative Murmur or Rub
Pulmonary: Clear and Symmetric; Negative Wheezes or Rales
Gastrointestinal: Soft, Non Tender, Non Distended and Normal Bowel Sounds
Skin: Warm and Dry; Negative Rash or Jaundice
Neurological: Negative Awake (sedated)
Objective Data
Lab Data
Lab Results
08/07/24 04:52
PT 19.2 Sec (11.4-14.6) H 07/31/24 17:56
INR 1.59 07/31/24 17:56
APTT 72.4 Sec (23.4-35.0) H 08/06/24 08:03
Estimated Creat Clear 52 ml/min 08/07/24 03:45
Lactic Acid 1.7 mmol/L (0.7-2.0) 08/06/24 03:26
Total Bilirubin Cancelled 08/06/24 06:00
AST Cancelled 08/06/24 06:00
ALT Cancelled 08/06/24 06:00
Alkaline Phosphatase Cancelled 08/06/24 06:00
Most recent labs reviewed.
Micro Results:
08/03/24 03:28 Blood Culture - Preliminary
Blood/Venous No Growth in 4 days- Final report to follow
08/03/24 03:41 Blood Culture - Preliminary
Blood/Venous No Growth in 4 days- Final report to follow
08/01/24 18:19 Blood Culture - Final
Blood/Venous No Growth - Final Report
08/01/24 15:36 Blood Culture - Final
Blood/Venous No Growth - Final Report
07/31/24 12:18 Respiratory Culture - Final
Endotracheal S aureus-Methicillin Sensitive
Gram Stain - Final
07/31/24 07:54 Blood Culture - Final
Blood/Venous Streptococcus salivarius
Gram Stain - Final
07/31/24 07:54 Blood Culture - Final
Blood/Venous Streptococcus salivarius
Gram Stain - Final
07/31/24 11:49 Legionella Urinary Antigen - Final
Urine Negative for Legionella pneumophila Serogroup 1 antigen.
A negative result does not rule out the possiblity of
Legionella infection due to other serogroups or species of
Legionella. Clinical correlation is recommended.
Streptococcus pneumoniae Antigen (M - Final
Negative for Streptococcus pneumoniae antigen.
A negative result does not exclude infection with
Streptococcus pneumoniae. Clinical correlation is
recommended.
07/31/24 12:18 Nasal Screen MRSA (PCR) - Final
Nose MRSA not detected - performed by PCR methodology.
07/31/24 08:10 Influenza Types A & B (KHANG) - Final
Nasal Swab Negative for Influenza A & B, NAAT
Negative results must be combined with clinical observations
and patient history.
Nucleic Acid Amplification test (NAAT)performed on the
[employer] platform.
08/04/24 CXR: Moderate pulmonary edema, without significant change.
[2024-08-07] MEDS: PITRESSIN 100 IV ×2 (09:18→19:24)
--- NOTE | 2024-08-07 09:21 | W.PN.GI.CBS2 ---
Today's Communication / Plan
-
No plans for flex-sig as without further recurrent hematochezia and stable H/h. Heparin gtt remains on hold, high risk for recurrent bleeding given known rectal masses. See rest of care as outlined below.
Assessment / Plan
-
#Rectal bleeding, likely secondary to known rectal cancer diagnosed 06/22/2024
#LGIB 2/2
#Known Hx of CRC Adeno (c/f lung mets)
#Multisystem organ failure, on CRRT, 2 pressor support, VDRF
#A-fib with RVR was on heparin drip-> stopped at 0610
#MSSA pneumonia
#Strep salivarius bacteremia
Mr. Redd is a 64 y.o male with a past medical history of HTN, HLD, HAN, restrictive lung disease, psoriasis (on Enbrel), newly diagnosed rectal cancer with concern for malignancy/metastases (low-grade adenocarcinoma 06/22/2024, yet to start
treatment with 2.2 cm RUL nodule c/f met) who initially presented on 07/30 with lightheadedness and generalized malaise found to have strep bacteremia and started on pressors for MSSA pneumonia. Course further complicated by cardiogenic pulmonary
edema (EF 55-60%) and A Fib w/ RVR requiring anticoagulation. He has remained on Vaso/Peter with unchanged pressor requirements, although was changed from levo to peter due to A Fib with RVR. Additionally, hospital course also significant for CHRISS
currently on CRRT. He developed acute, bright red blood per rectum this AM without prior melena with documented previous brown stools on 08/05. Liquid brown stool mixed with bright red blood on bunny this morning on 08/06. Labs notable for Hgb 10.3
(previously 10.4) with WBC 21k and plts 103. Etiology of rectal bleeding likely secondary to known rectal cancer as seen during a recent colonoscopy revealing a partially obstructing tumor (4 cm from the anal verge) along with an additional mass in
the rectum of about 4 cm at 8 cm from the anorectal verge. Much less likely diverticular or AVM given these recent findings and no AVMs visualized during patient's recent prior colonoscopy. No concern for a brisk UGIB given rectal bleeding without
preceding melena and known untreated rectal cancer. Given patient's multi-organ failure along with untreated rectal cancer, would defer on flex-sig at this time especially given recent IV heparin gtt as not without increased risks of increased
bleeding.
CTA 08/06 (-) for active GI bleed, enhancing masses in distal colon corresponding to known rectal masses along with concern for splenic infarct
Recommendations:
- Trend Hgb with serial CBC, transfuse as needed
- No plans for a Flex-Sig given stable H/h, without further significant hematochezia, and decreasing pressor requirements
- Wean pressors as able as per ICU
- Heparin gtt remains on hold. At high risk for recurrent lower GI bleeding given known rectal masses and likely recurrent oozing/bleeding
- If recurrent large volume hematochezia, would consider repeat stat CTA and potential IR embolization if (+)
- CRS following appreciate recs
- Continue ongoing supportive care as per primary ICU team
Discussed with primary internal medicine team. GI will continue to follow.
Subjective
Subjective
Date of Service: August 07, 2024
- CTA 08/06 (-) for active GI bleed, enhancing masses in distal colon corresponding to known rectal masses along with concern for splenic infarct
- No further episodes of large volume hematochezia, one episode of burgundy stool overnight
- Otherwise, no acute events
Remains intubated, sedated. Decreased pressor requirements in regards to Peter and remains on Vaso. hgb remains stable 9.0 -> 9.4 -> 9.6 without any recent blood transfusions.
Objective
Data Reviewed
Laboratory Data:
Laboratory Results
08/07/24 04:52
Laboratory Results
PT 19.2 Sec (11.4-14.6) H 07/31/24 17:56
INR 1.59 07/31/24 17:56
APTT 72.4 Sec (23.4-35.0) H 08/06/24 08:03
Phosphorus 3.4 mg/dl (2.5-4.5) 08/07/24 03:45
Magnesium 2.1 mg/dl (1.6-2.3) 08/07/24 03:45
Total Bilirubin Cancelled 08/06/24 06:00
AST Cancelled 08/06/24 06:00
ALT Cancelled 08/06/24 06:00
Alkaline Phosphatase Cancelled 08/06/24 06:00
Vital Signs and I&O:
Vital Signs
Temp Pulse Resp BP Pulse Ox
97.9 F 58 18 125/32 100
08/07/24 08:06 08/07/24 08:45 08/07/24 08:45 08/06/24 00:00 08/07/24 08:45
I&O
08/06/24 08/07/24 08/08/24
06:59 06:59 06:59
Intake Total 3304.1 / 3348.6 1903.9 / 1981.9 148.7 / 148.7
Output Total 4707 / 4849 1892 / 1984 213 / 213
Balance -1402.9 / -1500.4 10.9 / -3.1 -64.3 / -64.3
Physical Exam
Physical Exam
HEENT: Anicteric and Moist mucous membranes
Cardiology: Other (RR on tele)
Pulmonary: Other (Intubated on ventilatory)
GI: Soft, Distended and Other (Protuberant abdomen; no involuntary gaurding)
Extremities: Edema
Neuro: Other (Sedated on vent)
[2024-08-07 09:26] LABS: ALT (SGPT) 120 U/L (0-50); AST (SGOT) 629 U/L (17-59); Alkaline Phosphatase 361 U/L (38-126); Blood Urea Nitrogen 32 mg/dl (9-20); Calcium 8.2 mg/dl (8.4-10.2); Carbon Dioxide 22 mmol/L (22-30); Chloride 105 mmol/L (98-107); Direct Bilirubin 3.2 mg/dl (0.0-0.4); Estimated Creatinine Clearance 52 ml/min; Glucose 125 mg/dl (70-99); Magnesium 2.1 mg/dl (1.6-2.3); Phosphorus 3.6 mg/dl (2.5-4.5); Potassium 4.2 mmol/L (3.5-5.1); Sodium 136 mmol/L (135-145); Total Bilirubin 3.8 mg/dl (0.2-1.3); eGFR 34.93
--- NOTE | 2024-08-07 09:38 | W.PN.CARDCBS ---
Today's Communication / Plan
-
Remains critically ill on multiple pressors
Nephrology managing volume status with CRRT
Remains in sinus rhythm
Heparin has been discontinued because of anemia and possible GI bleeding
Impression / Plan
-
.
Primary Script Coordinator: Dr. Hiren Vicente
Impression:
MSOF (resp failure, CHF, liver failure, renal failure)
GI bleeding
Hypotension requiring pressors
CHRISS (likely as a consequence of hypotension, possibly from septic shock versus cardiogenic shock or combination of both)
Acute hypoxic respiratory failure requiring intubation 07/31/24
Liver failure (likely as a consequence of hypotension, possibly from septic shock versus cardiogenic shock or combination of both)
Fever
Sepsis, s aureus PNA, possible S aureus bacteremia
Acute diastolic CHF
Recent diagnosis paroxysmal atrial fibrillation with recurrent AFib with RVR
Colorectal cancer, suspected metastatic, diagnosed 06/22/2024, not yet started on therapy
Pulmonary nodule with concern for metastasis, scheduled for lung biopsy 08/03
Hypertension
Hyperlipidemia
Obstructive sleep apnea
Obesity
ECHO 07/31/24: Normal LV function. LVEF is 55-60%. No wall motion abnormality. Top normal right ventricular size with normal RV function. Mild AI and mild TR. Estimated pulmonary artery pressure of 38 mmHg
Plan:
He remains critically ill with MSOF (resp failure, CHF, liver failure, renal failure), shock, sepsis, lactic acidosis. He remains pressor dependent.
Remains in sinus rhythm
Heparin has been discontinued due to anemia
GI evaluating for GI bleed
(CHADSVASc = 2 with CHF, HTN) + higher thrombotic risk with malignancy
Might consider eventually resuming anticoagulation depending on course
Nephrology managing volume status with CRRT
Hold statin with elevated LFTs.
LFTs slowly improving
Discussed with nursing and family at bedside
CCT: 32 min
HPI:
64-year-old man with recently diagnosed colorectal cancer with possible lung metastasis and recent diagnosis of atrial fibrillation who presented with lightheadedness and dizziness after starting oral metoprolol as an outpatient and presented to
[place] emergency department for further management. After being found to have CHRISS and anemia he was admitted for further management. Unfortunately developed increased work of breathing this morning, became tachycardic and was found to be
febrile. Did not clinically improve with BiPAP and he was subsequently intubated and transferred to the medical ICU for further management. Currently being treated with broad-spectrum antibiotics and requiring pressor support.
Seen in the outpatient cardiology office 07/26/24 and was in AF with a rapid ventricular rate of 130 bpm. At that visit he had yet to initiate Toprol-XL which was ordered by his primary care physician. At that office visit he agreed to initiate
Toprol-XL 25 mg daily for rate control with plan to defer recommendations regarding rhythm control until he was adequately anticoagulated (atrial fibrillation of unknown duration) and to allow for intermittent interruption of anticoagulation for
planned upcoming procedures regarding his recently diagnosed colorectal cancer with likely pulmonary metastases (bronchoscopy, port placement, colorectal surgery). Eliquis 5 mg twice daily was also initiated on 07/26/24..
Cardiology is consulted for possible heart failure as a cause of his respiratory decompensation. proBNP was mildly elevated (3210), it is possible there is some component of heart failure with preserved ejection fraction.
On presentation to the emergency department 07/30/24, he was in atrial fibrillation with reasonably controlled ventricular rate of 105 bpm. EKG of July 31, 2024 finds sinus rhythm at 77 bpm.
Progress Note - Script Coordinator
Subjective
Date of Service: August 07, 2024
On ventilator and sedated
Objective
Labs:
08/07/24 04:52
08/07/24 08:28
Labs
Hgb 9.6 g/dL (13.0-18.0) L 08/07/24 04:52
Hct 29.7 % (39.0-52.0) L 08/07/24 04:52
Plt Count 84 10^3/uL (130-400) L 08/07/24 04:52
PT 19.2 Sec (11.4-14.6) H 07/31/24 17:56
INR 1.59 07/31/24 17:56
APTT 72.4 Sec (23.4-35.0) H 08/06/24 08:03
Sodium 136 mmol/L (135-145) 08/07/24 08:28
Potassium 4.2 mmol/L (3.5-5.1) 08/07/24 08:28
BUN 32 mg/dl (9-20) H 08/07/24 08:28
Creatinine 2.1 mg/dL (0.7-1.3) H 08/07/24 08:28
Glucose 125 mg/dl (70-99) H 08/07/24 08:28
Vital Signs and I&O:
Vital Signs
Temp Pulse Resp BP Pulse Ox
97.9 F 58 18 125/32 100
08/07/24 08:06 08/07/24 08:45 08/07/24 08:45 08/06/24 00:00 08/07/24 08:45
Vital Signs
Temp Pulse Resp BP Pulse Ox
97.9 F 58 18 125/32 100
08/07/24 08:06 08/07/24 08:45 08/07/24 08:45 08/06/24 00:00 08/07/24 08:45
Intake & Output
08/05/24 08/06/24 08/07/24 08/08/24
06:59 06:59 06:59 06:59
Intake Total 3849.3 / 4093.8 3304.1 / 3348.6 1903.9 / 1981.9 190.4 / 190.4
Output Total 6342 / 8304 1474 / 2264 1892 / 1984 335 / 335
Balance -4192.7 / -4281.2 -1402.9 / -1500.4 10.9 / -3.1 -144.6 / -144.6
Physical Exam
Physical Exam
General: Sedate
Neck: Supple, no JVD, HJR, carotids +2 B/L, no bruits bilaterally.
Heart: Non displaced PMI, RRR, no murmurs, No S3, S4, no rubs.
Lungs: Scattered rhonchi
Extremities: No clubbing, cyanosis or edema bilaterally.
Neuro: Sedate
--- NOTE | 2024-08-07 09:48 | W.PN.HOSP.TC ---
Today's Communication/Plan
-
attempt sedation/vent weans as able
CRRT as per Nephrology
continue IV Abx; ID following
Assessment / Plan
Assessment / Plan
Mr. Иван Redd is a 64-year-old man with a past medical history of recently diagnosed colorectal cancer, persistent atrial fibrillation, essential hypertension who presents to the ER with dizziness. Patient reports feeling unwell for the last
2 days. He was recently started on metoprolol and Eliquis for atrial fibrillation. Overnight admission patient developed acute respiratory failure in setting of high fever with finding MSSA in blood and sputum; development of renal failure
requiring CRRT.
Assessment:
Acute Respiratory Failure requiring intubation
MSSA Bacteremia and Pneumonia
Septic Shock
Acute Renal Failure with acute HFpEF (pulm edema)
Hyperkalemia
Lactic Acidosis
Non-Ischemic Myocardial Injury
-s/p intubation morning of 07/31 during rapid response
-initial concern for flash pulmonary edema given acute SOB, CXR read and patient had been receiving IVF. IV lasix given without significant output and worsening renal function; renal consulted and patient initiated on CRRT on 08/01 given worsening
renal function, essentially no urine output and hyperkalemia
-08/01: culture results showing MSSA in Sputum and Blood
-TTE results above - no vegetation
-continue IV Unasyn, day 2 per ID
-continue Pressor support
-sedation; SAT/SBT; vent management per Qa Test Analyst
-Trop peaked at 0.749
-Qa Test Analyst Consult appreciated
-Cardiology consult appreciated
-Nephrology consult appreciated
Acute lower GI bleed
Known history of colorectal Adenocarcinoma with possible lung mets
- s/p CTA without active bleeding source. No role for IR intervention. Source felt be related to known colon masses, although diverticular disease or AVMs possible
- was previously Scheduled for lung biopsy as outpatient
- patient had not yet started chemotherapy
Paroxysmal Atrial Fibrillation
- current in NSR
- off anticoagulation with active bleed episode
- off Toprol with pressor requirements
- appreciate Cardiology
Constipation
- bowel regimen prn
Essential Hypertension
- hold NET ARCHITECT Olmesartan-HCTZ, Metoprolol
Hyperlipidemia
- hold rosuvastatin
DVT ppx: SCDs
Code: Full
Total Critical Care Time 41 minutes. I was immediately available to the patient and staff. I personally examined, reviewed labs, diagnostic images/reports, interpretations, treatment plans, discussed patient care with other providers and family
or caregivers (if patient is unable to make decisions), entered orders as appropriate and documented the medical record.
Anticipated Discharge: > 48 hours
Subjective/Interval History
-
Date of Service: August 07, 2024
remains intubated/sedated
small burgundy BM during evening but none so far for day shift
remains on CRRT
Objective Data
-
Labs:
Laboratory Results
08/07/24 08/07/24 08/07/24
00:08 03:45 04:52
WBC 17.9 H
Hgb 9.4 L 9.6 L
Hct 28.2 L 29.7 L
Plt Count 84 L
Sodium 133 L 136
Potassium 3.8 4.0
Chloride 103 106
Carbon Dioxide 23 23
BUN 34 H 34 H
Creatinine 2.2 H 2.1 H
Glucose 121 H 119 H
Calcium 8.2 L 8.2 L
Total Bilirubin
AST
ALT
Alkaline Phosphatase
08/07/24
08:28
WBC
Hgb
Hct
Plt Count
Sodium 136
Potassium 4.2
Chloride 105
Carbon Dioxide 22
BUN 32 H
Creatinine 2.1 H
Glucose 125 H
Calcium 8.2 L
Total Bilirubin 3.8 H
AST 629 H*
ALT 120 H
Alkaline Phosphatase 361 H
Vital Signs:
Vital Signs
Temp Pulse Resp BP Pulse Ox
97.9 F 58 18 125/32 100
08/07/24 08:06 08/07/24 08:45 08/07/24 08:45 08/06/24 00:00 08/07/24 08:45
I&O
08/06/24 08/07/24 08/08/24
06:59 06:59 06:59
Intake Total 3304.1 / 3348.6 1903.9 / 1981.9 190.4 / 190.4
Output Total 4707 / 4849 1893 / 1985 335 / 335
Balance -1402.9 / -1500.4 10.9 / -3.1 -144.6 / -144.6
Physical Exam
-
General: Intubated
HEENT: Normocephalic and Atraumatic
Respiratory: Negative Wheezes
Cardiac: Regular Rhythm and S1/S2
GI: Soft
Neuro: Sedated
Data Reviewed
-
Critical Care Time (in minutes): 41
Labs: Labs Reviewed by me
[2024-08-07] MEDS: HEPARIN 500 UNITS CRRT-ART (10:17)
[2024-08-07 10:42] VITALS: BP 89/27
--- NOTE | 2024-08-07 11:14 | PN.CDI ---
CDI
- -
CDI:
Physician Documentation Request
Admit Date: 07/30/24 20:26
Dear Doctor Renetta,
Patient admitted with sepsis.
08/06 Hospitalist PN: 'Acute lower GI bleed...off anticoagulation with active bleed episode'
08/06 Medicaid Biller PN: 'Acute rectal bleeding in the setting of colorectal carcinoma/heparin infusion'
Please clarify the relationship between these conditions:
Yes, GI bleed is related to/associated with/exacerbated by heparin.
No, GI bleed is not related to/associated with/exacerbated by heparin but it is due to ___. (Please specify)
Unable to determine
Use of terms such as suspected, likely, concern for, or probable (associated with a specific diagnosis that is being evaluated, monitored, or treated as if it exists) are acceptable and can be coded in the inpatient setting, when documented at the
time of discharge.
Thank you,
Gardenia Stoner RN, BSN
CDI Specialist
Available via [employer]
Please use your independent medical judgment in providing your response.
[2024-08-07 11:33] LABS: Glucose - Point of Care 113 mg/dl (70-99)
--- NOTE | 2024-08-07 11:33 | W.PN.NEPH.PH ---
Today's Communication / Plan
-
cont CRRT, if circuit clotts no need to restart
Assessment/Plan
-
64-year-old man with recently diagnosed colorectal cancer with possible lung metastasis and recent diagnosis of atrial fibrillation who presented with lightheadedness and dizziness after starting oral metoprolol as an outpatient and presented to
[place] emergency department. He presented in acute kidney injury admitted to the floors upgraded to the ICU for increased work of breathing ultimately intubated in the ICU with hyperkalemia.
Patient is critically ill on pressor support essentially anuric.
Positive blood cultures pending organism. Staph aureus sputum culture.
Renal consult for acute kidney injury and hyperkalemia
Impression.
Acute kidney injury and hyperkalemia secondary to septic shock.
Colorectal cancer newly diagnosed June 2024 with possible lung metastasis
Atrial fibrillation on oral anticoagulation
VDRF
Bacteremia/sepsis
Plan.
CHRISS-remains anuric, on CRRT
wt no sig change with hypervolemia
increase UF to 100cc/hr
labs acceptable
wean pressors as allowed, MAP >65
monitor hb, CT angio no active bleeding, splenic infarction
Plt decreasing and off heparin gtt-ok for prn use in HD circuit
d/w nursing
critical care time 31 minutes
-
-
Date of Service: August 07, 2024
CC / HPI / ROS
-
Chief Complaint:
Septic shock
History of Present Illness:
critically ill in ICU on vent/pressors
grossly negative I/O from UF but no change in wt
K controlled
LFTs improving
Anuric
hb low but stable at 9 range
Review of Systems:.
sedated on vent, 40% Fio2
Labs
-
Labs:
Sodium 136 mmol/L (135-145) 08/07/24 08:28
Potassium 4.2 mmol/L (3.5-5.1) 08/07/24 08:28
Chloride 105 mmol/L (98-107) 08/07/24 08:28
Carbon Dioxide 22 mmol/L (22-30) 08/07/24 08:28
BUN 32 mg/dl (9-20) H 08/07/24 08:28
Creatinine 2.1 mg/dL (0.7-1.3) H 08/07/24 08:28
eGFR 34.93 08/07/24 08:28
Glucose 125 mg/dl (70-99) H 08/07/24 08:28
Calcium 8.2 mg/dl (8.4-10.2) L 08/07/24 08:28
Phosphorus 3.6 mg/dl (2.5-4.5) 08/07/24 08:28
Sav-S-Myhioyiypmo Pept 2850 pg/ml 08/06/24 03:26
Albumin Cancelled 08/06/24 06:00
Physical Exam
-
Vital Signs:
Vital Signs
Temp Pulse Resp BP Pulse Ox
97.7 F 58 18 125/32 100
08/07/24 11:24 08/07/24 08:45 08/07/24 08:45 08/06/24 00:00 08/07/24 11:11
Cardiovascular:: Regular rate and rhythm
Respiratory:: Bilateral: Coarse
Lung Excursion:: Abnormal
Abdomen:: Nontender and Soft
Extremity Edema:: +1: Bilateral:
Alvarez Catheter: Yes
--- NOTE | 2024-08-07 12:00 | PTCARENOTE ---
SAT initiated and Fent gtt off @ 0837; Precedex gtt remains on- see flow sheet. Approx 1hr s/p SAT; pt. opening eyes/blinking spontaneously but not following commands. RT attempted to switch settings for SBT; pt. too drowsy to complete initial SBT
and RT switched back to original vent settings. Plan to attempt again later if pt. is more awake. CRRT machine w high balance chamber levels. Dr. Milton made aware and further orders received- see MAR. Balance chamber pressures remained high.
CRRT line checked for clots; none found. Comprehensive alarm review completed. Micron filter removed from circuit per CVVHD guideline for high balance chamber pressures resolution. Balance chamber pressures immediately resolved. CRRT remains
infusing per orders w/out difficulty. Dr. Milton made aware.
[2024-08-07 12:03] LABS: INR 1.62; PT 19.5 Sec (11.4-14.6)
[2024-08-07 12:04] LABS: Fibrinogen 513 MG/DL (199-459)
[2024-08-07 12:05] LABS: APTT 54.9 Sec (23.4-35.0)
[2024-08-07] MEDS: RFP-401 HD Soln (K+ 4 mEq/L) 10000 ML CRRT-IRR (12:38)
[2024-08-07] MEDS: DILAUDID 0.5 MG IV ×2 (13:38→19:47)
[2024-08-07 14:44] LABS: Ionized Calcium 1.24 mMOL/L (1.15-1.33)
[2024-08-07 14:45] VITALS: BP_SYST 123
[2024-08-07 15:09] LABS: Blood Urea Nitrogen 33 mg/dl (9-20); Calcium 8.2 mg/dl (8.4-10.2); Carbon Dioxide 22 mmol/L (22-30); Chloride 105 mmol/L (98-107); Estimated Creatinine Clearance 54 ml/min; Glucose 124 mg/dl (70-99); Phosphorus 3.8 mg/dl (2.5-4.5); Potassium 4.2 mmol/L (3.5-5.1); Sodium 136 mmol/L (135-145); eGFR 37.04
--- NOTE | 2024-08-07 15:44 | PTCARENOTE ---
pt.'s CPOT noted to be increased- 4. In attempt to continue SAT/potential SBT; admin 1x dose IV Dilaudid- see SEP. Precedex tapered- see flow sheet. S/p above interventions pt. eyes open/tracking, remains drowsy but able to follow simple
commands; nodded head 'no' when asked if in pain. MD and RT made aware. RT. switched pt vent settings to CPAP5/PS20/.40 @ 1345; tolerated and RT dropped settings further to CPAP5/PS10/.40. Tolerated vent settings approx 1H; RT initiated SBT per
orders- CPAP 5/5/.40 @ 1445. Remains on SBT, tolerating. ECHO completed @ bedside this afternoon, awaiting results. and daughter @ bedside, updated.
--- NOTE | 2024-08-07 16:41 | W.PN.UPDATE ---
Update Note
Progress Note Update
CRRT note:
pt seen during CRRT at 1530
UF net neg 100cc/hr, could wean down if BP decreases
Dialysate 2lit/hr , 3k
bld flow 250-300cc/min
heparin prn only , watch plt
adjust meds GFR 33cc/min
d/w nursing
[2024-08-07] MEDS: RFP-401 HD Soln (K+ 4 mEq/L) 15000 ML CRRT-IRR ×2 (16:46→23:08)
[2024-08-07 16:48] LABS: B.E. -1.6 mmol/L; HCO3 22.9 mmol/L (21-28); O2 Saturation % 98.4 % (94-98); PCO2 37 mmHg (35-48); PO2 95 mmHg (83-108)
--- NOTE | 2024-08-07 16:48 | W.PN.UPDATE ---
Update Note
Progress Note Update
Patient has been weaned to CPAP over the last few hours, has been maintained on CPAP 5/5
Respiratory rate 22-27, tidal volume 350-400
Has been off sedation, requiring Dilaudid intermittently. Patient opens eyes
ABG drawn
Increase CPAP to 5/20 and maintain on this through the night. If high tidal volume, can come down on the pressure support
Maintain respiratory rate less than 30, tidal volume greater than 350
Minimize sedation if possible, continue with Dilaudid intermittently
Reassess ABG in the a.m.
Goal is to move towards extubation if able in the next 24 to 48 hours
Updated critical care nursing, respiratory care, family at bedside
--- NOTE | 2024-08-07 17:07 | PTCARENOTE ---
pt. tolerated approx 2H on CPAP wean //.40; ABG drawn and sent to lab. Noted tachypnea w rates high 20's-low 30's. Dr. Olguin to bedside. RT switched pt. vent settings back into pressure support 16/.40/+5 @ 1700. Rates improved. Plan to keep
pt. on pressure support settings overnight. Remains on brandi/vaso/dex- see flow sheets. CRRT remains infusing per orders- see flow sheet. @ bedside, updated.
[2024-08-07 18:06] LABS: Glucose - Point of Care 113 mg/dl (70-99)
[2024-08-07 18:17] LABS: Hematocrit 29.6 % (39.0-52.0); Hemoglobin 9.3 g/dL (13.0-18.0); Mean Corp Hgb Conc. 31.4 g/dL (33.0-37.0); Mean Corpuscular Hgb 26.6 pg (27.0-31.0); Mean Corpuscular Volume 84.8 fL (80.0-94.0); Red Blood Cell Count 3.49 10^6/uL (4.70-6.10); Red Cell Dist. Width 18.6 % (11.5-14.5); White Blood Cell Count 16.5 10^3/uL (4.8-10.8)
[2024-08-07 18:32] LABS: Mean Platelet Volume 12.3 fL (7.4-10.4); Platelet Count 72 10^3/uL (130-400)
[2024-08-07] MEDS: SEROQUEL 50 MG TUBE (19:25)
[2024-08-07 19:58] LABS: Ionized Calcium 1.19 mMOL/L (1.15-1.33)
[2024-08-07 20:13] LABS: Blood Urea Nitrogen 33 mg/dl (9-20); Calcium 8.6 mg/dl (8.4-10.2); Carbon Dioxide 23 mmol/L (22-30); Chloride 104 mmol/L (98-107); Estimated Creatinine Clearance 54 ml/min; Glucose 121 mg/dl (70-99); Phosphorus 4.2 mg/dl (2.5-4.5); Potassium 4.2 mmol/L (3.5-5.1); Sodium 134 mmol/L (135-145); eGFR 37.04
--- NOTE | 2024-08-07 20:22 | PTCARENOTE ---
CRRT running, 4K bath, TFR 2.0, BFR currently 200, running net neg 100. pt anjany. RIJ HD cath C/D/I. 1999 labs sent. calcium to be repleted.
--- NOTE | 2024-08-07 20:22 | PTCARENOTE ---
Received pt from previous RN. Pt is drowsy, opens eyes, nods his head appropriately, pupils b/l 3 sluggish. B/l wrist restraints in place. NSR/sinus sinai on the monitor, doppler pedals, edema. ETT #8 25 @ lip repositioned to left side. Pt on
pressure support 16/ PEEP 5/ 40%, O2 sat 97%, lungs diminished/coarse. OG clamped, secured @ [address], temp sensing. Peter, vaso, and Precedex gtt (see worklist). CRRT right IJ. Right radial mike zeroed and transduced. @ bedside.
Safe environment maintained.
[2024-08-07] MEDS: CALCIUM GLUCONATE 100 IV (20:49)
--- NOTE | 2024-08-07 20:53 | PTCARENOTE ---
Pt with periods of apnea, RR 10, high TV. RT in the room pressure support lowered to 10. Ca 1.19, 2g Ca gluconate rider given (see MAR).
--- NOTE | 2024-08-07 23:22 | PTCARENOTE ---
Systems reviewed, no new changes in assessment. CHG bath and bourgeois care provided. CRRT maintained (see worklist). Safe environment maintained.
[2024-08-07 23:29] LABS: Glucose - Point of Care 110 mg/dl (70-99)
[2024-08-08] VITALS (30 sets, daily range): BP systolic 88–137; BP diastolic 31–86; PULSE 2–116; BMI 39.5
[2024-08-08] MEDS: DILAUDID 0.5 MG IV ×3 (00:35→06:58)
[2024-08-08 02:10] LABS: B.E. -0.9 mmol/L; HCO3 23.5 mmol/L (21-28); O2 Saturation % 98.6 % (94-98); PCO2 37 mmHg (35-48); PO2 93 mmHg (83-108); pH 7.41 (7.35-7.45)
[2024-08-08 02:17] LABS: Ionized Calcium 1.31 mMOL/L (1.15-1.33); O2 Therapy CPAP 5/20/40%
[2024-08-08 02:21] LABS: % Basophils 0.3 % (0-2); % Eosinophils 0.1 % (0-6); % Immature Granulocytes 0.8 % (0-0.5); % Lymphocytes 10.8 % (20.5-51.1); % Monocytes 4.5 % (1.7-9.3); % Neutrophils 83.5 % (42.2-75.2); Absolute Basophils 0.1 10^3/uL (0-0.2); Absolute Immature Granulocytes 0.1 10^3/uL (0-0.05); Absolute Lymphocytes 1.6 10^3/uL (1.2-3.4); Absolute Monocytes 0.7 10^3/uL (0.1-0.6); Hematocrit 28.8 % (39.0-52.0); Hemoglobin 9.1 g/dL (13.0-18.0); Mean Corp Hgb Conc. 31.6 g/dL (33.0-37.0); Mean Corpuscular Hgb 26.9 pg (27.0-31.0); Mean Corpuscular Volume 85.2 fL (80.0-94.0); Mean Platelet Volume 12.1 fL (7.4-10.4); Nucleated Red Blood Cells % 0.1 % (-); Platelet Count 71 10^3/uL (130-400); Red Blood Cell Count 3.38 10^6/uL (4.70-6.10); Red Cell Dist. Width 18.6 % (11.5-14.5); White Blood Cell Count 14.4 10^3/uL (4.8-10.8)
[2024-08-08 03:16] LABS: ALT (SGPT) 111 U/L (0-50); AST (SGOT) 553 U/L (17-59); Albumin 2.2 g/dl (3.5-5.0); Alkaline Phosphatase 365 U/L (38-126); Blood Urea Nitrogen 32 mg/dl (9-20); Calcium 8.5 mg/dl (8.4-10.2); Carbon Dioxide 22 mmol/L (22-30); Chloride 106 mmol/L (98-107); Estimated Creatinine Clearance 54 ml/min; Glucose 117 mg/dl (70-99); Magnesium 2.1 mg/dl (1.6-2.3); Potassium 4.4 mmol/L (3.5-5.1); Sodium 136 mmol/L (135-145); Total Bilirubin 4.3 mg/dl (0.2-1.3); Total Protein 5.3 g/dl (6.3-8.2); eGFR 37.04
--- NOTE | 2024-08-08 03:33 | PTCARENOTE ---
Systems reviewed, no new changes in assessment. AM labs provided. Gtts maintained (see worklist). Safe enviorment maintained.
[2024-08-08] MEDS: UNASYN IV ×2 (05:18→17:02)
[2024-08-08] MEDS: NOVOLOG FLEXPEN-MODERATE RESISTANCE SC ×4 (05:28→23:04)
[2024-08-08 05:39] LABS: Glucose - Point of Care 113 mg/dl (70-99)
[2024-08-08] MEDS: RFP-401 HD Soln (K+ 4 mEq/L) 15000 ML CRRT-IRR (05:46)
[2024-08-08] MEDS: PITRESSIN 100 IV (06:15)
[2024-08-08] MEDS: NEO-SYNEPHRINE 1% 260 MG IV (06:15)
[2024-08-08] MEDS: COLACE LIQUID TUBE ×2 (07:11→19:50)
[2024-08-08] MEDS: MIRALAX TUBE ×2 (07:12→19:50)
[2024-08-08] MEDS: PROTONIX IV 40 MG IV (07:20)
[2024-08-08] MEDS: SEROQUEL 50 MG TUBE (07:20)
[2024-08-08] MEDS: NSS (PRESERVATIVE FREE) 10 ML IV (07:20)
--- NOTE | 2024-08-08 08:05 | PTCARENOTE ---
CRRT clotted off. planned return of blood completed.
--- NOTE | 2024-08-08 08:08 | W.PN.GI.CBS2 ---
Today's Communication / Plan
-
No further signs of recurrent rectal bleeding / hematochezia as a/c remains on hold. Hgb remains stable without transfusions. No plans for a flex-sig at this time given resolved bleeding. Discussed with patient's at length again this morning.
Agree with ongoing supportive care as per primary ICU team. GI will sign-off, please recontact with any questions or concerns.
Assessment / Plan
-
#Rectal bleeding, likely secondary to known rectal cancer diagnosed 06/22/2024
#LGIB 2/
#Known Hx of CRC Adeno (c/f lung mets)
#Multisystem organ failure, on CRRT, 2 pressor support, VDRF
#A-fib with RVR was on heparin drip-> stopped at 0610
#MSSA pneumonia
#Strep salivarius bacteremia
Mr. Redd is a 64 y.o male with a past medical history of HTN, HLD, HAN, restrictive lung disease, psoriasis (on Enbrel), newly diagnosed rectal cancer with concern for malignancy/metastases (low-grade adenocarcinoma 06/22/2024, yet to start
treatment with 2.2 cm RUL nodule c/f met) who initially presented on 07/30 with lightheadedness and generalized malaise found to have strep bacteremia and started on pressors for MSSA pneumonia. Course further complicated by cardiogenic pulmonary
edema (EF 55-60%) and A Fib w/ RVR requiring anticoagulation. He has remained on Vaso/Peter with unchanged pressor requirements, although was changed from levo to peter due to A Fib with RVR. Additionally, hospital course also significant for CHRISS
currently on CRRT. He developed acute, bright red blood per rectum this AM without prior melena with documented previous brown stools on 08/05. Liquid brown stool mixed with bright red blood on bunny this morning on 08/06. Labs notable for Hgb 10.3
(previously 10.4) with WBC 21k and plts 103. Etiology of rectal bleeding likely secondary to known rectal cancer as seen during a recent colonoscopy revealing a partially obstructing tumor (4 cm from the anal verge) along with an additional mass in
the rectum of about 4 cm at 8 cm from the anorectal verge. Much less likely diverticular or AVM given these recent findings and no AVMs visualized during patient's recent prior colonoscopy. No concern for a brisk UGIB given rectal bleeding without
preceding melena and known untreated rectal cancer. Given patient's multi-organ failure along with untreated rectal cancer, would defer on flex-sig at this time especially given recent IV heparin gtt as not without increased risks of increased
bleeding.
CTA 08/06 (-) for active GI bleed, enhancing masses in distal colon corresponding to known rectal masses along with concern for splenic infarct.
Recommendations:
- Trend Hgb with serial CBC, transfuse as needed
- Wean pressors as able as per ICU
- Heparin gtt remains on hold. At high risk for recurrent lower GI bleeding given known rectal masses and likely recurrent oozing/bleeding
- If recurrent large volume hematochezia, would consider repeat stat CTA and potential IR embolization if (+)
- No plans for a Flex-Sig given stable H/h without any blood transfusions and without further significant hematochezia/rectal bleeding
- CRS following, appreciate recs
- Continue ongoing supportive care as per primary ICU team
Discussed with patient's again this AM and primary internal medicine team. GI will sign-off, please recontact with any questions or concerns.
Subjective
Subjective
Date of Service: August 08, 2024
No further bloody stools, had light brown colored BM per nursing without any overt blood clots or obvious bright red blood. Hgb continues to remain stable without blood transfusions. Remains critically ill on ventilator and CRRT. Discussed with
patient's again this AM.
Objective
Data Reviewed
Laboratory Data:
Laboratory Results
08/08/24 02:04
Laboratory Results
PT 19.5 Sec (11.4-14.6) H 08/07/24 11:27
INR 1.62 08/07/24 11:27
APTT 54.9 Sec (23.4-35.0) H 08/07/24 11:27
Phosphorus 4.0 mg/dl (2.5-4.5) 08/08/24 02:04
Magnesium 2.1 mg/dl (1.6-2.3) 08/08/24 02:04
Total Bilirubin 4.3 mg/dl (0.2-1.3) H 08/08/24 02:04
AST 553 U/L (17-59) H* 08/08/24 02:04
ALT 111 U/L (0-50) H 08/08/24 02:04
Alkaline Phosphatase 365 U/L (38-126) H 08/08/24 02:04
Vital Signs and I&O:
Vital Signs
Temp Pulse Resp BP Pulse Ox
97.9 F 64 15 98/35 100
08/08/24 07:29 08/08/24 06:45 08/08/24 06:45 08/08/24 00:00 08/08/24 06:45
I&O
08/07/24 08/08/24 08/09/24
06:59 06:59 06:59
Intake Total 3.9 / 1981.9 1675.9 / 1767.4 91.5 / 91.5
Output Total 1892 3407 / 3588 181 / 181
Balance 10.9 / -3.1 -1731.1 / -1820.6 -89.5 / -89.5
Physical Exam
Physical Exam
HEENT: Anicteric and Moist mucous membranes
Cardiology: Other (RR on tele)
Pulmonary: Other (Intubated on ventilator)
GI: Soft, Distended, Non Tender and Other (No involuntary guarding)
Neuro: Other (Sedated on vent)
[2024-08-08 08:41] LABS: Ionized Calcium 1.23 mMOL/L (1.15-1.33)
--- NOTE | 2024-08-08 08:46 | PTCARENOTE ---
Addendum entered by Sulema Jones RN 08/08/24 08:56:
Physician updated patient's Adriana on plan of care.
Original Note:
Dr. Bentley in to see patient, will stop CRRT, plan to start intermittent dialysis tomorrow.
--- NOTE | 2024-08-08 08:47 | W.PN.NEPH.PH ---
Today's Communication / Plan
-
HD tomorrow
Assessment/Plan
-
64-year-old man with recently diagnosed colorectal cancer with possible lung metastasis and recent diagnosis of atrial fibrillation who presented with lightheadedness and dizziness after starting oral metoprolol as an outpatient and presented to
[place] emergency department. He presented in acute kidney injury admitted to the floors upgraded to the ICU for increased work of breathing ultimately intubated in the ICU with hyperkalemia.
Patient is critically ill on pressor support essentially anuric.
Positive blood cultures pending organism. Staph aureus sputum culture.
Renal consult for acute kidney injury and hyperkalemia
Impression.
Acute kidney injury and hyperkalemia secondary to septic shock.
Colorectal cancer newly diagnosed June 2024 with possible lung metastasis
Atrial fibrillation on oral anticoagulation
VDRF
Bacteremia/sepsis
Plan.
convert to IHD, next treatment tomorrow
follow BMP, contrast exposure 08/06
follow LFTs
wean pressors as allowed
potential for extubation today
follow hgb, transfuse as needed
critical care time 31 minutes
-
-
Date of Service: August 08, 2024
CC / HPI / ROS
-
Chief Complaint:
Septic shock
History of Present Illness:
critically ill in ICU on vent/pressors
CRRT clotted again since off heparin gtt
K controlled
LFTs improving
Anuric
hb low but stable at 9.1
Review of Systems:.
sedated on vent, 40% Fio2
Labs
-
Labs:
WBC 14.4 10^3/uL (4.8-10.8) H 08/08/24 02:04
RBC 3.38 10^6/uL (4.70-6.10) L 08/08/24 02:04
Hgb 9.1 g/dL (13.0-18.0) L 08/08/24 02:04
Hct 28.8 % (39.0-52.0) L 08/08/24 02:04
Plt Count 71 10^3/uL (130-400) L 08/08/24 02:04
eGFR 37.04 08/08/24 02:04
Pen-L-Axngeylezbv Pept 2850 pg/ml 08/06/24 03:26
Albumin 2.2 g/dl (3.5-5.0) L 08/08/24 02:04
Physical Exam
-
Vital Signs:
Vital Signs
Temp Pulse Resp BP Pulse Ox
97.9 F 64 15 98/35 100
08/08/24 07:29 08/08/24 06:45 08/08/24 06:45 08/08/24 00:00 08/08/24 08:34
Cardiovascular:: Regular rate and rhythm
Respiratory:: Bilateral: Coarse
Lung Excursion:: Normal
Abdomen:: Nontender and Soft
Bowel Sounds:: Normal
Extremity Edema:: +2: Bilateral:
[2024-08-08 09:04] LABS: Blood Urea Nitrogen 33 mg/dl (9-20); Calcium 8.4 mg/dl (8.4-10.2); Carbon Dioxide 22 mmol/L (22-30); Chloride 105 mmol/L (98-107); Estimated Creatinine Clearance 48 ml/min; Glucose 126 mg/dl (70-99); Magnesium 2.1 mg/dl (1.6-2.3); Phosphorus 4.5 mg/dl (2.5-4.5); Potassium 4.3 mmol/L (3.5-5.1); Sodium 135 mmol/L (135-145); eGFR 33.04
--- NOTE | 2024-08-08 09:04 | W.PN.HOSP.TC ---
Today's Communication/Plan
-
extubated to BIPAP; AM ABG
continue Abx
HD tomorrow
monitor for bleeding
Assessment / Plan
Assessment / Plan
Mr. Иван Redd is a 64-year-old man with a past medical history of recently diagnosed colorectal cancer, persistent atrial fibrillation, essential hypertension who presents to the ER with dizziness. Patient reports feeling unwell for the last
2 days. He was recently started on metoprolol and Eliquis for atrial fibrillation. Overnight admission patient developed acute respiratory failure in setting of high fever with finding MSSA in blood and sputum; development of renal failure
requiring CRRT.
Assessment:
Acute Respiratory Failure requiring intubation
MSSA Bacteremia and Pneumonia
Septic Shock
Acute Renal Failure with acute HFpEF (pulm edema)
Hyperkalemia
Lactic Acidosis
Non-Ischemic Myocardial Injury
-s/p intubation morning of 07/31 during rapid response; extubated 08/08 to BIPAP
-initial concern for flash pulmonary edema given acute SOB, CXR read and patient had been receiving IVF. IV lasix given without significant output and worsening renal function; renal consulted and patient initiated on CRRT on 08/01 given worsening
renal function, essentially no urine output and hyperkalemia. CRRT now stopped and planning for HD tomorrow
-08/01: culture results showing MSSA in Sputum and Blood
-TTE results above - no vegetation
-continue IV Unasyn, day 3 per ID
-continue Pressor support; wean as able
-wean sedation
-Trop peaked at 0.749
-Cancer Registry Manager Consult appreciated
-Cardiology consult appreciated
-Nephrology consult appreciated
Acute lower GI bleed (exacerbated by IV heparin)
Known history of colorectal Adenocarcinoma with possible lung mets
- s/p CTA without active bleeding source. No role for IR intervention. Source felt be related to known colon masses, although diverticular disease or AVMs possible
- was previously Scheduled for lung biopsy as outpatient
- patient had not yet started chemotherapy
Paroxysmal Atrial Fibrillation
- current in NSR
- off anticoagulation with active bleed episode
- off Toprol with pressor requirements
- appreciate Cardiology
Constipation
- bowel regimen prn
Essential Hypertension
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
Hyperlipidemia
- hold rosuvastatin
DVT ppx: SCDs
Code: Full
Total Critical Care Time 41 minutes. I was immediately available to the patient and staff. I personally examined, reviewed labs, diagnostic images/reports, interpretations, treatment plans, discussed patient care with other providers and family
or caregivers (if patient is unable to make decisions), entered orders as appropriate and documented the medical record.
Anticipated Discharge: > 48 hours
Subjective/Interval History
-
Date of Service: August 08, 2024
no evidence of GI bleed
extubated today
off sedation, remains on 2 pressors
Objective Data
-
Labs:
Laboratory Results
08/08/24 08/08/24
02:04 08:31
WBC 14.4 H
Hgb 9.1 L
Hct 28.8 L
Plt Count 71 L
HCO3 23.5
Sodium 136 Pending
Potassium 4.4 Pending
Chloride 106 Pending
Carbon Dioxide 22 Pending
BUN 32 H Pending
Creatinine 2.0 H Pending
Glucose 117 H Pending
Calcium 8.5 Pending
Total Bilirubin 4.3 H
AST 553 H*
ALT 111 H
Alkaline Phosphatase 365 H
Vital Signs:
Vital Signs
Temp Pulse Resp BP Pulse Ox
97.9 F 58 13 98/35 100
08/08/24 07:29 08/08/24 08:45 08/08/24 08:45 08/08/24 00:00 08/08/24 08:45
I&O
08/07/24 08/08/24 08/09/24
06:59 06:59 06:59
Intake Total 1902.9 / 1980.9 1675.9 / 1767.4 122.4 / 122.4
Output Total 1892 3407 / 3588 181 / 181
Balance 10.9 / -3.1 -1731.1 / -1820.6 -58.6 / -58.6
Physical Exam
-
General: No Apparent Distress
HEENT: Normocephalic and Atraumatic
Respiratory: Negative Wheezes
Cardiac: Regular Rhythm and S1/S2
GI: Soft and Nontender
Musculoskeletal: No Edema
Neuro: Awake and Other (follows command)
Psych: Calm
Data Reviewed
-
Critical Care Time (in minutes): 41
Labs: Labs Reviewed by me
--- NOTE | 2024-08-08 09:06 | W.PN.ID1 ---
Date of Service
Date of Service: August 08, 2024
Today's Communication
- CRRT stopped this AM, transition to HD, c/w unasyn day 3, dose adjusted to 3 gm Q12 hours as for HD
Assessment / Plan
Shock - most likely septic
S aureus (MSSA) Pneumonia
Strep salivarius bacteremia x 2 sets drawn at the same time - most likely contaminant
Septic shock, remains on pressors
CHRISS now transitioning to HD
Class III Obesity
Colorectal Adenocarcinoma - not yet on treatment
Psoriatic Arthritis - currently off of Enbrel since ~05/03
- new splenic infarction seen on CTA 08/06 - embolic vs thrombotic
- repeat blood cultures x2 no growth to date
- 08/07 TTE - normal EF, no vegetation or embolic source seen
- would still consider S salivarius most likely contaminant
- 08/07 sputum culture: few mixed morphotypes
- 07/31 sputum: MSSA
- CRRT stopped this AM, transition to HD, c/w unasyn day 3, dose adjusted to 3 gm Q12 hours as for HD
follow pressor requirements, wbc, physical exam. Patient remains critically ill with some possible interval improvement
Chief Complaint
-: Pneumonia (S aureus), Bacteremia (streptococcus) and Other (shock)
Subjective / Review of Systems
hypothermia improved
phenylephrine dose titrating down, vaso remains on
note plans to start HD tomorrow, stopped CRRT today
weaned to CPAP yesterday
had a BM last night
Vital Signs / Physical Exam
Vital Signs
Vital Signs
Temp Pulse Resp BP Pulse Ox
97.9 F 58 13 98/35 100
08/08/24 07:29 08/08/24 08:45 08/08/24 08:45 08/08/24 00:00 08/08/24 08:45
Physical Exam
Constitutional: Acutely Ill and Chronically Ill
Cardiovascular: Regular Rate and S1/S2; Negative Murmur or Rub
Pulmonary: Clear and Symmetric; Negative Wheezes or Rales
Gastrointestinal: Soft, Non Tender, Non Distended and Normal Bowel Sounds
Skin: Warm and Dry; Negative Rash or Jaundice
Objective Data
Lab Data
Lab Results
08/08/24 02:04
08/08/24 08:31
PT 19.5 Sec (11.4-14.6) H 08/07/24 11:27
INR 1.62 08/07/24 11:27
APTT 54.9 Sec (23.4-35.0) H 08/07/24 11:27
Estimated Creat Clear 48 ml/min 08/08/24 08:31
Lactic Acid 1.7 mmol/L (0.7-2.0) 08/06/24 03:26
Total Bilirubin 4.3 mg/dl (0.2-1.3) H 08/08/24 02:04
AST 553 U/L (17-59) H* 08/08/24 02:04
ALT 111 U/L (0-50) H 08/08/24 02:04
Alkaline Phosphatase 365 U/L (38-126) H 08/08/24 02:04
Most recent labs reviewed.
Micro Results:
08/03/24 03:28 Blood Culture - Final
Blood/Venous No Growth - Final Report
08/03/24 03:41 Blood Culture - Final
Blood/Venous No Growth - Final Report
08/07/24 10:52 Respiratory Culture - Pending
Sputum Gram Stain - Preliminary
08/07/24 11:39 Blood Culture - Pending
Blood/Venous
08/07/24 11:27 Blood Culture - Pending
Blood/Venous
08/01/24 18:19 Blood Culture - Final
Blood/Venous No Growth - Final Report
08/01/24 15:36 Blood Culture - Final
Blood/Venous No Growth - Final Report
07/31/24 12:18 Respiratory Culture - Final
Endotracheal S aureus-Methicillin Sensitive
Gram Stain - Final
07/31/24 07:54 Blood Culture - Final
Blood/Venous Streptococcus salivarius
Gram Stain - Final
07/31/24 07:54 Blood Culture - Final
Blood/Venous Streptococcus salivarius
Gram Stain - Final
07/31/24 11:49 Legionella Urinary Antigen - Final
Urine Negative for Legionella pneumophila Serogroup 1 antigen.
A negative result does not rule out the possiblity of
Legionella infection due to other serogroups or species of
Legionella. Clinical correlation is recommended.
Streptococcus pneumoniae Antigen (M - Final
Negative for Streptococcus pneumoniae antigen.
A negative result does not exclude infection with
Streptococcus pneumoniae. Clinical correlation is
recommended.
07/31/24 12:18 Nasal Screen MRSA (PCR) - Final
Nose MRSA not detected - performed by PCR methodology.
07/31/24 08:10 Influenza Types A & B (KHANG) - Final
Nasal Swab Negative for Influenza A & B, NAAT
Negative results must be combined with clinical observations
and patient history.
Nucleic Acid Amplification test (NAAT)performed on the
[employer] platform.
08/04/24 CXR: Moderate pulmonary edema, without significant change.
--- NOTE | 2024-08-08 09:11 | W.PN.CARDCBS ---
Today's Communication / Plan
-
Remains critically ill on 2 different pressors to maintain blood pressure
Nephrology is going to try hemodialysis
Remains in sinus rhythm
Anticoagulation stopped due to anemia
Impression / Plan
-
.
Primary Senior Benefits Specialist: Dr. Hiren Vicente
Impression:
MSOF (resp failure, CHF, liver failure, renal failure)
GI bleeding
Hypotension requiring pressors
CHRISS (likely as a consequence of hypotension, possibly from septic shock versus cardiogenic shock or combination of both)
Acute hypoxic respiratory failure requiring intubation 07/31/24
Liver failure (likely as a consequence of hypotension, possibly from septic shock versus cardiogenic shock or combination of both)
Fever
Sepsis, s aureus PNA, possible S aureus bacteremia
Acute diastolic CHF
Recent diagnosis paroxysmal atrial fibrillation with recurrent AFib with RVR
Colorectal cancer, suspected metastatic, diagnosed 06/22/2024, not yet started on therapy
Pulmonary nodule with concern for metastasis, scheduled for lung biopsy 08/03
Hypertension
Hyperlipidemia
Obstructive sleep apnea
Obesity
ECHO 07/31/24: Normal LV function. LVEF is 55-60%. No wall motion abnormality. Top normal right ventricular size with normal RV function. Mild AI and mild TR. Estimated pulmonary artery pressure of 38 mmHg
Plan:
He remains critically ill with MSOF (resp failure, CHF, liver failure, renal failure), shock, sepsis, lactic acidosis. He remains pressor dependent.
He has remained in sinus rhythm
Heparin has been discontinued due to anemia
Nephrology is planning on hemodialysis as CRRT ineffective due to clotting off of heparin
Remains on 2 different pressors for hypotension
Hold statin with elevated LFTs.
LFTs slowly improving
Discussed with nursing and family at bedside
HPI:
64-year-old man with recently diagnosed colorectal cancer with possible lung metastasis and recent diagnosis of atrial fibrillation who presented with lightheadedness and dizziness after starting oral metoprolol as an outpatient and presented to
[place] emergency department for further management. After being found to have CHRISS and anemia he was admitted for further management. Unfortunately developed increased work of breathing this morning, became tachycardic and was found to be
febrile. Did not clinically improve with BiPAP and he was subsequently intubated and transferred to the medical ICU for further management. Currently being treated with broad-spectrum antibiotics and requiring pressor support.
Seen in the outpatient cardiology office 07/26/24 and was in AF with a rapid ventricular rate of 130 bpm. At that visit he had yet to initiate Toprol-XL which was ordered by his primary care physician. At that office visit he agreed to initiate
Toprol-XL 25 mg daily for rate control with plan to defer recommendations regarding rhythm control until he was adequately anticoagulated (atrial fibrillation of unknown duration) and to allow for intermittent interruption of anticoagulation for
planned upcoming procedures regarding his recently diagnosed colorectal cancer with likely pulmonary metastases (bronchoscopy, port placement, colorectal surgery). Eliquis 5 mg twice daily was also initiated on 07/26/24..
Cardiology is consulted for possible heart failure as a cause of his respiratory decompensation. proBNP was mildly elevated (3210), it is possible there is some component of heart failure with preserved ejection fraction.
On presentation to the emergency department 07/30/24, he was in atrial fibrillation with reasonably controlled ventricular rate of 105 bpm. EKG of July 31, 2024 finds sinus rhythm at 77 bpm.
Progress Note - Senior Benefits Specialist
Subjective
Date of Service: August 08, 2024
Unresponsive on the vent
Objective
Labs:
08/08/24 02:04
08/08/24 08:31
Labs
Hgb 9.1 g/dL (13.0-18.0) L 08/08/24 02:04
Hct 28.8 % (39.0-52.0) L 08/08/24 02:04
Plt Count 71 10^3/uL (130-400) L 08/08/24 02:04
PT 19.5 Sec (11.4-14.6) H 08/07/24 11:27
INR 1.62 08/07/24 11:27
APTT 54.9 Sec (23.4-35.0) H 08/07/24 11:27
Sodium 135 mmol/L (135-145) 08/08/24 08:31
Potassium 4.3 mmol/L (3.5-5.1) 08/08/24 08:31
BUN 33 mg/dl (9-20) H 08/08/24 08:31
Creatinine 2.2 mg/dL (0.7-1.3) H 08/08/24 08:31
Glucose 126 mg/dl (70-99) H 08/08/24 08:31
Vital Signs and I&O:
Vital Signs
Temp Pulse Resp BP Pulse Ox
97.9 F 58 13 98/35 100
08/08/24 07:29 08/08/24 08:45 08/08/24 08:45 08/08/24 00:00 08/08/24 08:45
Vital Signs
Temp Pulse Resp BP Pulse Ox
97.9 F 58 13 98/35 100
08/08/24 07:29 08/08/24 08:45 08/08/24 08:45 08/08/24 00:00 08/08/24 08:45
Intake & Output
08/06/24 08/07/24 08/08/24 08/09/24
06:59 06:59 06:59 06:59
Intake Total 3304.1 / 3348.6 1903.9 / 1981.9 1675.9 / 1767.4 122.4 / 122.4
Output Total 4707 / 4849 1892 / 1984 3407 / 3588 181 / 181
Balance -1402.9 / -1500.4 10.9 / -3.1 -1731.1 / -1820.6 -58.6 / -58.6
Physical Exam
Physical Exam
General: Unresponsive
Neck: Supple, no JVD, HJR, carotids +2 B/L, no bruits bilaterally.
Heart: Non displaced PMI, RRR, no murmurs, No S3, S4, no rubs.
Lungs: Scattered rhonchi
Extremities: No clubbing, cyanosis or edema bilaterally.
Neuro: Unresponsive
--- NOTE | 2024-08-08 09:17 | PTCARENOTE ---
Patient continues to be minimally responsive, is not opening eyes. He is on the ventilator CPAP 8/5 saturating 100%. Tidal volumes are in the 600s. mouth care completed. Patient is in a sinus rhythm sinus sinai. Remains on double concentrated
brandi and vasopressin. Right radial [place]. Patient has generalized anasarca, lowere etremities have +3 edema. Patient is NPO, bourgeois for urine, but currently anuric. SCDs on, indentations noted, dressing over small abrasions on johansen. Plan to CT
Head if continues to be minimally responsive.
--- NOTE | 2024-08-08 10:29 | W.PN.INTV ---
Addendum entered and electronically signed by Ok Olguin MD 08/08/24 12:45:
Patient extubated to BiPAP
He does have good cough with suction
He appears to be more comfortable on BiPAP 15
Wean oxygen as able
Hiccups noted
Of note, patient with severe sleep apnea, index 75 maintained on auto CPAP as outpatient
Continue BiPAP while sleeping and nightly
Reviewed with critical care nursing and respiratory care
Addendum entered and electronically signed by Ok Olguin MD 08/08/24 12:44:
Patient seen and examined independently by myself. Remains critically ill on pressors. Has been maintained on CPAP ABG with adequate oxygenation/ventilation. Patient has required minimal Dilaudid. Although he does intermittently follow commands,
for me, he does not do much. Family at bedside
Physical exam
Chest exam with decreased breath sounds at the base.
Right IJ, midline, PICC line
Abdomen mildly distended but soft. He does have 1-2+ edema
Right upper extremity A-line. Mild peripheral cyanosis but pulse intact
Data reviewed
ABG consistent with adequate ventilation/oxygenation
Fibrinogen level normal
Continues with CRRT
A/P
Although patient has been reportedly following commands and squeezing hand, will check stat head CT
Platelets 71 noted
Check HIT panel
Follow-up platelets
Remains off anticoagulation, except heparin through CRRT circuit
Abdominal images suggest possible basilar pneumonia with consolidation
Continue Unasyn therapy
Minimize sedation, narcotic therapy as able
Liver function improving
May require discontinuation or weaning off of Seroquel if extubated successfully
Continue to wean pressors as able
Unfortunately, unable to pursue any anticoagulation at this time given brisk lower GI bleed earlier this week
Family aware of risk of stroke
Hopefully, can focus on extubation, continued supportive care, PT/OT, rehabilitation for eventual chemoradiation therapy for colorectal cancer
Reviewed at length with critical care nursing, respiratory care, pharmacy, case management
Reviewed with colorectal surgery
TCCT 45 min
Original Note:
Today's Communication / Plan
Recommendations
Change in mental status-CT head negative
Platelet count dropping-send HIT panel
Intermittent hemodialysis
Wean off vasopressors as able
Try to get of ventilator in next 48 hours-keep off sedation to help assess patient response
Sequential compression devices
Assessment
-
Impression
Patient is a 64-year-old male, recently diagnosed with colorectal carcinoma and the disease is presumably advanced, had a lung nodule that was supposed to be biopsied but patient ended up in the ER for dizziness secondary to recent atrial
fibrillation. As his workup was being done in the ER for CHRISS and anemia along with dizziness, patient decompensated, had acute respiratory failure, nonresponsive to nonrebreather mask and noninvasive ventilation, ended up in ICU, rapid response was
called, had to be intubated.
Currently patient is critically ill, has multiorgan failure, including acute respiratory failure, acute renal insufficiency, hypoxic liver, and recently had bloody bowel movements.
Heparin infusion held secondary to the GI bleed. Colorectal surgery evaluated the patient and recommended CTA, which came back negative for any active bleed,GI is also on board.
Patient does not have any active bleed, is off anticoagulation and sedation.
Condition critical
Assessment:
# Change in mental status
#Acute rectal bleeding in the setting of colorectal carcinoma/heparin infusion
#Acute respiratory failure
#CHRISS now on CRRT
#Streptococcal bacteremia
#Acute HFpEF exacerbation
#Metabolic acidosis with increased anion gap due to severe CHRISS and lactic acidosis
#Transaminitis secondary to hypoxic liver
Plan:
# Change in mental status
Today patient remains on CPAP, significant change in mental status, not following commands or opening eyes
Keep off sedation to better assess the response
CT head 08/08: No acute intracranial abnormality
#Acute rectal bleeding in the setting of colorectal carcinoma/heparin infusion
Patient had bloody bowel movements on 08/06/2024 with roughly 1 L of blood loss
Colorectal surgery consult apprec-CTA negative
Hemoglobin remained stable around 9, no further bleed, GI signed off
Currently off anticoagulation, on mechanical compression devices for DVT prophylaxis
NPO TFO/Can still give meds
ID consult apprec- concern for new splenic infarction seen on CTA - embolic vs thrombotic
#Acute respiratory failure
Patient has been on mechanical ventilation since 07/31/2024
Patient remained on CPAP overnight and tolerated well, as per overnight reports patient was responsive
Today patient remains on CPAP, significant change in mental status, not following commands or opening eyes
Keep off sedation to better assess the response
If patient able to response to commands and give SBT trial
Chest x-ray 08/08
IMPRESSION:
Some hazy bibasilar opacification which could represent atelectasis and/or pneumonia and small bilateral pleural effusions, perhaps slightly increased.
#CHRISS now on CRRT
Patient has had worsening renal creatinine function --->placed on CRRT on August 01, 2024
Nephro consult appreciated-okay to go ahead with intermittent hemodialysis
Continue to trend urine output, serum creatinine, lactic acid, and bicarb
Serum Cr 2.2,HCO3 is 22
#Streptococcal bacteremia
Patient remains critically ill
ID consult apprec--Antibiotic switched to unasyn by ID(DAY-3)
Echo repeated on 08/07/2024-There is no evidence of vegetation or embolic source seen.
Blood cultures in progress, no growth to date from blood cultures sent on 08/03/2024-- patient is still in shock and remains on vasopressors
On vasopressors vasopressin 0.03mcg/kg/min and norepinephrine 100 mcg /kg/min
Titrate pressors as able, WBC charting, temperature charting, continue to follow blood cultures.
New splenic infarct concerning-Blood culture and sputum culture pending
#Acute HFpEF exacerbation secodary to A-fib with RVR/Acute diastolic CHF
Patient presented with rapid development of pulmonary edema
Updated echo(08/04/2024)-normal biventricular function with normal ejection fraction
Cardio consult appreciated-suggest heart failure with preserved ejection fraction given the recent pulmonary edema
Cause of pulmonary edema could be the rapid A-fib
Patient had A-fib with RVR on presentation
Good heart rate control now
Placed on heparin infusion based on [id number] score/malignancy-off heparin now-given recent bloody bowel movements
Continue to monitor the heart rate
Could use a pacemaker in the future, given the patient survives current critical condition
#Metabolic acidosis with increased anion gap due to severe CHRISS and lactic acidosis
Lactic acidosis resolved
Patient shifted from CRRT to intermittent hemodialysis as per nephrology
#Transaminitis secondary to hypoxic liver
Patient had a shock liver response to hypoperfusion secondary to septic shock/cardiogenic shock
AST was greater than 7500 and ALT was greater than 4000
Liver enzymes trending down(AST 553,ALT 111,ALP 365,Total power 4.3)
Limit Tylenol to less than 2 g daily to avoid liver damage
Hold statin with elevated LFTs.
Family is aware of the patient's critical condition
#Other Medical conditions
#Metastatic colorectal cancer with suspected lung metastasis (diagnosed via colonoscopy on 06/22/2024 with partially obstructing tumor seen in the rectum 4 cm from the anal verge, invasive low-grade colorectal adenocarcinoma)
#PET avid 2.2 cm right upper lobe nodule originally planned for robotic bronchoscopy on 08/03/2024 (will be deferred for now)
#HAN on auto CPAP
#History of psoriasis previously on Enbrel
#History of hepatitis A
#History of COVID-19 (04/03)
#Restrictive lung disease (suspected based on spirometry from 05/15/2021, however patient was coughing during testing and post-bronchodilator FVC was WNL at 84% predicted
CODE status-currently full code, needs to be reviewed given the critical condition
DVT prophylaxis-Sequential compression devices
Subjective Dataa
Subjective Data
Date of Service:
Date of Service: August 08, 2024
Chief Complaint: Repair Order Clerk Follow Up, Pulmonary Follow Up and Vent Management Follow Up
Subjective:
Patient's condition critical
Currently intubated, sedated with 0.2 Precedex, on vasopressors with phenylephrine 100 mcg/kg /min and vasopressin 0.03/min
Remained on CPAP overnight, was responsive at night as per reports, on examination, patient is minimally responsive, not opening eyes or following commands representing a significant change in mental status
Did not have any further bleeding episodes/remains off anticoagulation
Review of Systems
General: Unobtainable - Pat Unresp and Unobtainable - Sedation
Objective Data
Data Reviewed
Vital Signs / I&O / Oxygen:
Vital Signs
Temp Pulse Resp BP Pulse Ox
97.9 F 58 13 98/35 100
08/08/24 07:29 08/08/24 08:45 08/08/24 08:45 08/08/24 00:00 08/08/24 09:35
Intake and Output
08/07/24 08/08/24 08/09/24
06:59 06:59 06:59
Intake Total 1903.9 / 1981.9 1675.9 / 1767.4 146.4 / 146.4
Output Total 1892 3407 / 3588 181 / 181
Balance 10.9 / -3.1 -1731.1 / -1820.6 -34.6 / -34.6
SaO2 [CPAP] 100
SaO2 [A/C] 99
SaO2 100
Physical Exam
General: Other (N.p.o) and Other (Patient intubated, sedated and on vasopressors)
HEENT: Normocephalic, Anicteric and Other (ETT in place)
Cardiovascular: S1-S2, Regular Rhythm and Peripheral Edema (+1 lower extremity edema bilaterally, With bilateral mottling of legs)
Respiratory: Clear and ET Tube (Mechanical breath sounds heard bilaterally, Vent settings RR18/ Vt500/ YhV833/ peep5)
GI: Soft, Distended (Abdominal obesity) and Normal Bowel Sounds
Neurology: Other (Pupils +1 mm bilaterally; sedated )
Skin: Warm, Dry and Other (Legs appear mottled)
Labs/Micro/Reports
Lab Data
08/08/24 02:04
08/08/24 08:31
Laboratory Results
08/07/24 08/07/24 08/08/24
11:27 16:40 02:04
PT 19.5 H
INR 1.62
APTT 54.9 H
pH 7.40 7.41
pCO2 37 37
pO2 95 93
HCO3 22.9 23.5
O2 Delivery Level Cpap 5/20/40%
Microbiology
08/03/24 03:28 Blood/Venous Blood Culture - Final
No Growth - Final Report
08/03/24 03:41 Blood/Venous Blood Culture - Final
No Growth - Final Report
08/07/24 10:52 Sputum Gram Stain - Preliminary
08/01/24 18:19 Blood/Venous Blood Culture - Final
No Growth - Final Report
08/01/24 15:36 Blood/Venous Blood Culture - Final
No Growth - Final Report
07/31/24 12:18 Endotracheal Respiratory Culture - Final
S aureus-Methicillin Sensitive
07/31/24 12:18 Endotracheal Gram Stain - Final
--- NOTE | 2024-08-08 11:08 | PTCARENOTE ---
Returned from CT scan, will send blood gas at 1130
[2024-08-08 12:00] LABS: B.E. -1.7 mmol/L; HCO3 22.9 mmol/L (21-28); O2 Saturation % 98.6 % (94-98); PCO2 37 mmHg (35-48); PO2 103 mmHg (83-108)
[2024-08-08 12:01] LABS: Glucose - Point of Care 111 mg/dl (70-99)
--- NOTE | 2024-08-08 12:32 | PTCARENOTE ---
Patient extubated to Bipap 15/8 with 15L. OGT discontinued as well.
--- NOTE | 2024-08-08 12:36 | RESPNOTE ---
pt extubated to bipap 15/8 with 15 lpm. sats of 100% noted.
--- NOTE | 2024-08-08 13:53 | CM ---
CM following re: discharge planning.
Discussed in rounds, reviewed pt's chart, met with pt and family at bedside.
Pt extubated today to 15 L of O2 and Bi-pap, continue supportive care.
PT and OT will evaluate the pt to determine a level of care at discharge.
D/C plan: uncertain at this time and will depend on pt's progress.
CM will follow with discharge plan updates as hospitalization progresses
--- NOTE | 2024-08-08 14:30 | PTCARENOTE ---
Notified Dr. Olguin of patient's blood pressures, Very low diastolic in the arterial line read and high pressures with left arm radial cuff. Patient has been extubated and will continue to wean pressure based on SBP of manual cuff. Will leave
A-line in place for ABG in morning.
--- NOTE | 2024-08-08 16:14 | PTCARENOTE ---
Patient had one episode of emesis. Removed Bipap immediately, suctioned patient and provided mouth care. Fresh mask placed on patient, respiratory at bedside. Notified Dr. Olguin, removed bipap and placed patient on 4L nasal cannula. Patient
coughing thick yellow/edouard sputum.
[2024-08-08 17:42] LABS: Glucose - Point of Care 128 mg/dl (70-99)
[2024-08-08 18:04] LABS: Glucose - Point of Care 118 mg/dl (70-99)
--- NOTE | 2024-08-08 20:41 | PTCARENOTE ---
Received pt from previous RN. Pt is AAOx1 (self), drowsy/lethargic, moaning, nods head. Pt in and out Afib w/ PVCs, HR 70-150s. ICU SKY CAP Juanita notified, EKG provided reading Afib w/RVR. DC Peter gtt @ 40 mcg, titrated for BP (see worklist). Pt on 4L NC,
O2 sat 98%, lungs diminished/coarse. Bipap HS 10/5 @ 6L. Alvarez in place, hygiene provided. Right radial mike zeroed and transduced. @ bedside. Safe environment maintained.
--- NOTE | 2024-08-08 23:10 | PTCARENOTE ---
ICU PIPEFITTER Juanita notified about pt having a moderate liquid burgundy BM. Labs ordered.
[2024-08-08 23:16] LABS: Glucose - Point of Care 119 mg/dl (70-99)
[2024-08-08 23:46] LABS: Hematocrit 26.4 % (39.0-52.0); Hemoglobin 8.4 g/dL (13.0-18.0); Mean Corp Hgb Conc. 31.8 g/dL (33.0-37.0); Mean Corpuscular Hgb 26.9 pg (27.0-31.0); Mean Corpuscular Volume 84.6 fL (80.0-94.0); Mean Platelet Volume 11.2 fL (7.4-10.4); Platelet Count 66 10^3/uL (130-400); Red Blood Cell Count 3.12 10^6/uL (4.70-6.10); Red Cell Dist. Width 19.3 % (11.5-14.5); White Blood Cell Count 12.7 10^3/uL (4.8-10.8)
[2024-08-09] VITALS (38 sets, daily range): BP systolic 88–168; BP diastolic 37–85; PULSE 2–130; BMI 39.2
[2024-08-09 00:01] LABS: Blood Urea Nitrogen 48 mg/dl (9-20); Calcium 8.1 mg/dl (8.4-10.2); Carbon Dioxide 20 mmol/L (22-30); Chloride 106 mmol/L (98-107); Estimated Creatinine Clearance 34 ml/min; Glucose 123 mg/dl (70-99); Potassium 4.1 mmol/L (3.5-5.1); Sodium 136 mmol/L (135-145); eGFR 21.89
--- NOTE | 2024-08-09 03:14 | PTCARENOTE ---
Systems reviewed, no new changes in assessment. Peter titrated per protocol (see worklist). AM labs provided. Safe environment maintained.
[2024-08-09 03:25] LABS: B.E. -4.4 mmol/L; O2 Saturation % 99.5 % (94-98); PCO2 33 mmHg (35-48); PO2 138 mmHg (83-108); pH 7.39 (7.35-7.45)
[2024-08-09 03:50] LABS: % Basophils 0.3 % (0-2); % Eosinophils 0.1 % (0-6); % Immature Granulocytes 0.8 % (0-0.5); % Lymphocytes 9.4 % (20.5-51.1); % Monocytes 5.4 % (1.7-9.3); Absolute Immature Granulocytes 0.1 10^3/uL (0-0.05); Absolute Lymphocytes 1.1 10^3/uL (1.2-3.4); Absolute Monocytes 0.6 10^3/uL (0.1-0.6); Absolute Neutrophils 9.7 10^3/uL (1.4-6.5); Hematocrit 25.3 % (39.0-52.0); Hemoglobin 8.2 g/dL (13.0-18.0); Mean Corp Hgb Conc. 32.4 g/dL (33.0-37.0); Mean Corpuscular Hgb 27.2 pg (27.0-31.0); Mean Corpuscular Volume 84.1 fL (80.0-94.0); Mean Platelet Volume 12.2 fL (7.4-10.4); Nucleated Red Blood Cells % 0 % (-); Platelet Count 58 10^3/uL (130-400); Red Blood Cell Count 3.01 10^6/uL (4.70-6.10); Red Cell Dist. Width 18.9 % (11.5-14.5); White Blood Cell Count 11.6 10^3/uL (4.8-10.8)
[2024-08-09 04:02] LABS: ALT (SGPT) 102 U/L (0-50); AST (SGOT) 460 U/L (17-59); Albumin 2.2 g/dl (3.5-5.0); Alkaline Phosphatase 357 U/L (38-126); Blood Urea Nitrogen 51 mg/dl (9-20); Calcium 7.8 mg/dl (8.4-10.2); Carbon Dioxide 21 mmol/L (22-30); Chloride 106 mmol/L (98-107); Estimated Creatinine Clearance 30 ml/min; Glucose 111 mg/dl (70-99); Sodium 138 mmol/L (135-145); Total Bilirubin 5.2 mg/dl (0.2-1.3); Total Protein 5.3 g/dl (6.3-8.2); eGFR 18.92
[2024-08-09] MEDS: UNASYN IV ×2 (05:16→17:45)
[2024-08-09] MEDS: NOVOLOG FLEXPEN-MODERATE RESISTANCE SC ×4 (05:23→23:02)
[2024-08-09 05:34] LABS: Glucose - Point of Care 95 mg/dl (70-99)
[2024-08-09] MEDS: LOPRESSOR 5 MG IV ×2 (06:16→12:32)
[2024-08-09] MEDS: COLACE LIQUID TUBE (07:06)
[2024-08-09] MEDS: MIRALAX TUBE (07:06)
[2024-08-09] MEDS: PROTONIX IV 40 MG IV (07:40)
[2024-08-09] MEDS: NSS (PRESERVATIVE FREE) 10 ML IV (07:40)
--- NOTE | 2024-08-09 07:55 | W.PN.NEPH.PH ---
Today's Communication / Plan
-
HD
Assessment/Plan
-
64-year-old man with recently diagnosed colorectal cancer with possible lung metastasis and recent diagnosis of atrial fibrillation who presented with lightheadedness and dizziness after starting oral metoprolol as an outpatient and presented to
[facility] emergency department. He presented in acute kidney injury admitted to the floors upgraded to the ICU for increased work of breathing ultimately intubated in the ICU with hyperkalemia.
Patient is critically ill on pressor support essentially anuric.
Positive blood cultures pending organism. Staph aureus sputum culture.
Renal consult for acute kidney injury and hyperkalemia
Impression.
Acute kidney injury and hyperkalemia secondary to septic shock.
Colorectal cancer newly diagnosed June 2024 with possible lung metastasis
Atrial fibrillation on oral anticoagulation
VDRF
Bacteremia/sepsis
Plan.
HD today
follow BMP, contrast exposure 08/06
follow LFTs
wean pressors as allowed
May remove Alvarez at this time with bladder scan serially
follow hgb, transfuse as needed
Eventual transition to tunneled catheter may consider doing this soon given dropping platelet count
Discussed with at bedside
critical care time 31 minutes
-
-
Date of Service: August 09, 2024
CC / HPI / ROS
-
Chief Complaint:
Septic shock
History of Present Illness:
critically ill in ICU on pressors
Extubated yesterday
Off CRRT
K controlled
LFTs improving
Anuric
Hemoglobin lower at 8.2
Review of Systems:.
sedated on vent, 40% Fio2
Labs
-
Labs:
WBC 11.6 10^3/uL (4.8-10.8) H 08/09/24 03:09
RBC 3.01 10^6/uL (4.70-6.10) L 08/09/24 03:09
Hgb 8.2 g/dL (13.0-18.0) L 08/09/24 03:09
Hct 25.3 % (39.0-52.0) L 08/09/24 03:09
Plt Count 58 10^3/uL (130-400) L 08/09/24 03:09
Sodium 138 mmol/L (135-145) 08/09/24 03:09
Potassium 4.0 mmol/L (3.5-5.1) 08/09/24 03:09
Chloride 106 mmol/L (98-107) 08/09/24 03:09
Carbon Dioxide 21 mmol/L (22-30) L 08/09/24 03:09
BUN 51 mg/dl (9-20) H 08/09/24 03:09
Creatinine 3.5 mg/dL (0.7-1.3) H 08/09/24 03:09
eGFR 18.92 08/09/24 03:09
Glucose 111 mg/dl (70-99) H 08/09/24 03:09
Calcium 7.8 mg/dl (8.4-10.2) L 08/09/24 03:09
Phosphorus 4.5 mg/dl (2.5-4.5) 08/08/24 08:31
Bwu-Z-Qvcqormevlv Pept 2850 pg/ml 08/06/24 03:26
Albumin 2.2 g/dl (3.5-5.0) L 08/09/24 03:09
Physical Exam
-
Vital Signs:
Vital Signs
Temp Pulse Resp BP Pulse Ox
98.7 F 119 25 116/21 100
08/09/24 02:59 08/09/24 07:45 08/09/24 07:45 08/09/24 06:16 08/09/24 07:45
Cardiovascular:: Regular rate and rhythm
Respiratory:: Bilateral: Coarse
Lung Excursion:: Normal
Abdomen:: Nontender and Soft
Bowel Sounds:: Normal
Extremity Edema:: +2: Bilateral:
--- NOTE | 2024-08-09 08:02 | PTCARENOTE ---
pt received from previous rn- pt lethargic, moving hands freely. does not follow commands. pupils 3 and sluggish. full am care provided. incontinent of burgundy stool. remains on bipap 04/14 with 6L, pt tolerating. at bedside and updated. per
Dr. Sheree jackson to remove bourgeois. pt in afib, brandi gtt off at this time. right radial mike zeroed and functioning. all lines c/d/i. all safety precautions in place, call lubin within reach. retail special event associate Guillermina at bedside for HD.
--- NOTE | 2024-08-09 08:02 | W.PN.NEPH.HD ---
Assessment
-
Seen on HD. no new issues. VSS off pressors, access temp CVC
Progress Note - Hemodialysis
-
Date of Service: August 09, 2024
Duration: 30 minutes and 3 hours
Potassium Bath: 2
Calcium Bath: 2.5
Opti-Dialyzer: 160
Ultrafiltration: Other (2kg)
Blood Flow: 400
Dialysate Flow: 600
Heparin: no
EPO: 6000 units
[2024-08-09] MEDS: RETACRIT 6000 UNITS IV (09:09)
--- NOTE | 2024-08-09 09:38 | PTCARENOTE ---
poc discussed in rounds-a line removed per Dr. Olguin- pressure held, dressing applied and intact. pt moving all extremities, still not following commands. remainds on HD. labs sent as per order
[2024-08-09 09:40] LABS: Ammonia < 9 umol/L (9-30)
[2024-08-09] MEDS: FLEXBUMIN 25% FOR HEMODIALYSIS 12.5 GRAMS IV ×2 (09:48→10:57)
[2024-08-09] MEDS: MANNITOL 25% 12.5 GRAMS IV ×2 (09:48→10:57)
--- NOTE | 2024-08-09 09:52 | W.PN.ID1 ---
Date of Service
Date of Service: August 09, 2024
Today's Communication
- c/w unasyn day 4, dosed for HD
Assessment / Plan
S aureus (MSSA) Pneumonia
Resolved shock
Strep salivarius bacteremia x 2 sets drawn at the same time - most likely contaminant
Septic shock, remains on pressors
CHRISS now transitioning to HD
Class III Obesity
Colorectal Adenocarcinoma - not yet on treatment
Psoriatic Arthritis - currently off of Enbrel since ~05/03
- follow thrombocytopenia
- new splenic infarction seen on CTA 08/06 - embolic vs thrombotic
- repeat blood cultures x2 no growth to date
- 08/07 TTE - normal EF, no vegetation or embolic source seen
- would still consider S salivarius most likely contaminant
- 08/07 sputum culture: few mixed morphotypes
- 07/31 sputum: MSSA
- c/w unasyn day 4, dosed for HD
- follow clinically
Chief Complaint
-: Pneumonia (S aureus), Bacteremia (streptococcus) and Other (shock)
Subjective / Review of Systems
afebrile
pressors weaned off
extubated to 15 L of O2 and bipap
- tachypnea
had moderate liquid burgundy BM
HD today
not yet alert, seroquel was stopped
ammonia normal
Vital Signs / Physical Exam
Vital Signs
Vital Signs
Temp Pulse Resp BP Pulse Ox
98.7 F 119 25 116/21 100
08/09/24 07:20 08/09/24 07:45 08/09/24 07:45 08/09/24 06:16 08/09/24 07:56
Physical Exam
Constitutional: Acutely Ill and Chronically Ill
Cardiovascular: Regular Rate and S1/S2; Negative Murmur or Rub
Pulmonary: Clear and Symmetric; Negative Wheezes or Rales
Gastrointestinal: Soft, Non Tender, Non Distended and Normal Bowel Sounds
Skin: Warm and Dry; Negative Rash or Jaundice
Objective Data
Lab Data
Lab Results
08/09/24 03:09
PT 19.5 Sec (11.4-14.6) H 08/07/24 11:27
INR 1.62 08/07/24 11:27
APTT 54.9 Sec (23.4-35.0) H 08/07/24 11:27
Estimated Creat Clear 30 ml/min 08/09/24 03:09
Lactic Acid 1.7 mmol/L (0.7-2.0) 08/06/24 03:26
Total Bilirubin 5.2 mg/dl (0.2-1.3) H 08/09/24 03:09
AST 460 U/L (17-59) H 08/09/24 03:09
ALT 102 U/L (0-50) H 08/09/24 03:09
Alkaline Phosphatase 357 U/L (38-126) H 08/09/24 03:09
Most recent labs reviewed.
Micro Results:
08/07/24 11:39 Blood Culture - Preliminary
Blood/Venous No Growth in 24 hours- Final report to follow
08/07/24 11:27 Blood Culture - Preliminary
Blood/Venous No Growth in 24 hours- Final report to follow
08/07/24 10:52 Respiratory Culture - Preliminary
Sputum NO GROWTH
Gram Stain - Preliminary
08/03/24 03:28 Blood Culture - Final
Blood/Venous No Growth - Final Report
08/03/24 03:41 Blood Culture - Final
Blood/Venous No Growth - Final Report
08/01/24 18:19 Blood Culture - Final
Blood/Venous No Growth - Final Report
08/01/24 15:36 Blood Culture - Final
Blood/Venous No Growth - Final Report
07/31/24 12:18 Respiratory Culture - Final
Endotracheal S aureus-Methicillin Sensitive
Gram Stain - Final
07/31/24 07:54 Blood Culture - Final
Blood/Venous Streptococcus salivarius
Gram Stain - Final
07/31/24 07:54 Blood Culture - Final
Blood/Venous Streptococcus salivarius
Gram Stain - Final
07/31/24 11:49 Legionella Urinary Antigen - Final
Urine Negative for Legionella pneumophila Serogroup 1 antigen.
A negative result does not rule out the possiblity of
Legionella infection due to other serogroups or species of
Legionella. Clinical correlation is recommended.
Streptococcus pneumoniae Antigen (M - Final
Negative for Streptococcus pneumoniae antigen.
A negative result does not exclude infection with
Streptococcus pneumoniae. Clinical correlation is
recommended.
07/31/24 12:18 Nasal Screen MRSA (PCR) - Final
Nose MRSA not detected - performed by PCR methodology.
07/31/24 08:10 Influenza Types A & B (KHANG) - Final
Nasal Swab Negative for Influenza A & B, NAAT
Negative results must be combined with clinical observations
and patient history.
Nucleic Acid Amplification test (NAAT)performed on the
[employer] platform.
08/04/24 CXR: Moderate pulmonary edema, without significant change.
--- NOTE | 2024-08-09 10:48 | W.PN.HOSP.TC ---
Today's Communication/Plan
-
Tunneled HD cath
Dobhoff by GI if able to place
HD
continue Abx
off pressors
Assessment / Plan
Assessment / Plan
Mr. Иван Redd is a 64-year-old man with a past medical history of recently diagnosed colorectal cancer, persistent atrial fibrillation, essential hypertension who presents to the ER with dizziness. Patient reports feeling unwell for the last
2 days. He was recently started on metoprolol and Eliquis for atrial fibrillation. Overnight admission patient developed acute respiratory failure in setting of high fever with finding MSSA in blood and sputum; development of renal failure
requiring CRRT.
Assessment:
Acute Respiratory Failure requiring intubation
MSSA Bacteremia and Pneumonia
Septic Shock
Acute Renal Failure with acute HFpEF (pulm edema)
Hyperkalemia
Lactic Acidosis
Non-Ischemic Myocardial Injury
-s/p intubation morning of 07/31 during rapid response; extubated 08/08 to BIPAP
-initial concern for flash pulmonary edema given acute SOB, CXR read and patient had been receiving IVF. IV lasix given without significant output and worsening renal function; renal consulted and patient initiated on CRRT on 08/01 given worsening
renal function, essentially no urine output and hyperkalemia. CRRT now stopped and planning for HD today. IR consulted for tunneled cath.
-08/01: culture results showing MSSA in Sputum and Blood
-TTE results above - no vegetation
-continue IV Unasyn, day 4 per ID
-off pressors
-off sedation
-Trop peaked at 0.749
-Electrical Manager Consult appreciated
-Cardiology consult appreciated
-Nephrology consult appreciated
Acute lower GI bleed (exacerbated by IV heparin)
Known history of colorectal Adenocarcinoma with possible lung mets
- s/p CTA without active bleeding source. No role for IR intervention. Source felt be related to known colon masses, although diverticular disease or AVMs possible.
- was previously Scheduled for lung biopsy as outpatient
- patient had not yet started chemotherapy
- GI following
Paroxysmal Atrial Fibrillation
- current in NSR
- off anticoagulation with active bleed episode
- off Toprol with pressor requirements
- appreciate Cardiology
TME from multifactorial
- critical illness, recent sedation
- monitor mentation
- CTH negative 08/08
Constipation
- bowel regimen prn
Essential Hypertension
- hold AMBULANCE DISPATCHER Olmesartan-HCTZ, Metoprolol
Hyperlipidemia
- hold rosuvastatin
Thrombocytopenia
- await HIT panel
DVT ppx: SCDs
Code: Full
Total Critical Care Time 41 minutes. I was immediately available to the patient and staff. I personally examined, reviewed labs, diagnostic images/reports, interpretations, treatment plans, discussed patient care with other providers and family
or caregivers (if patient is unable to make decisions), entered orders as appropriate and documented the medical record.
Anticipated Discharge: > 48 hours
Subjective/Interval History
-
Date of Service: August 09, 2024
remains somnolent but able to follow simple commands
started on HD today
off pressors
Objective Data
-
Labs:
Laboratory Results
08/08/24 08/09/24 08/09/24
23:14 03:09 16:00
WBC 12.7 H 11.6 H Pending
Hgb 8.4 L 8.2 L Pending
Hct 26.4 L 25.3 L Pending
Plt Count 66 L 58 L Pending
HCO3 20.0 L
Sodium 136 138
Potassium 4.1 4.0
Chloride 106 106
Carbon Dioxide 20 L 21 L
BUN 48 H 51 H
Creatinine 3.1 H 3.5 H
Glucose 123 H 111 H
Calcium 8.1 L 7.8 L
Total Bilirubin 5.2 H
AST 460 H
ALT 102 H
Alkaline Phosphatase 357 H
Vital Signs:
Vital Signs
Temp Pulse Resp BP Pulse Ox
98.7 F 111 28 107/55 100
08/09/24 07:20 08/09/24 10:00 08/09/24 10:00 08/09/24 10:00 08/09/24 10:00
I&O
08/08/24 08/09/24 08/10/24
06:59 06:59 06:59
Intake Total 1675.9 / 1767.4 524.4 / 524.4 0 / 0
Output Total 3407 / 3588 185 / 185 0 / 0
Balance -1731.1 / -1820.6 339.4 / 339.4 0 / 0
Physical Exam
-
General: Obese
HEENT: Normocephalic and Atraumatic
Respiratory: Decreased Breath Sounds
Cardiac: Regular Rhythm and S1/S2
GI: Soft and Nontender
Genito-urinary: No Costovertebral Tender
Musculoskeletal: No Edema
Neuro: AO x 3
Hematologic / Lymphatic: No Lymphadenopathy
Psych: Calm
Data Reviewed
-
Critical Care Time (in minutes): 41
Labs: Labs Reviewed by me
--- NOTE | 2024-08-09 11:11 | W.PN.INTV ---
Addendum entered and electronically signed by Ok Olguin MD 08/09/24 11:40:
Patient seen and examined independently by myself. Resident note reviewed. Agree with assessment and plan.
Overall, patient tolerated extubation yesterday without difficulty. Tolerated BiPAP overnight. Had brief mild episode of emesis yesterday p.m. with BiPAP, removed since. Patient tachycardia noted, heart rate as high as 140s. Had burgundy stool
overnight. Still remains lethargic. He is moving extremities, reaching for mask at times. Currently on hemodialysis
Physical exam
1+ edema
Chest exam with decreased breath sounds at base. Right IJ, midline and upper extremity PICC line. Right upper extremity A-line
Abdominal exam soft, nontender
Patient does move all extremities spontaneously but is fatigued. Does not follow commands for myself
Data reviewed
Platelets 58, HIT panel pending
Creatinine 3.5, BUN 51. Liver function trending down. Hemoglobin 8.2
ABG 7.39/33/138
A/P
Moving forward continue with BiPAP intermittently, nightly. Head of bed elevated. Patient with severe sleep apnea, index 75 on CPAP at home
Concerned about mental status
Likely combination of uremia, liver injury, sepsis, sedation, hemodialysis
Discontinue Seroquel as of yesterday
Check ammonia level
Minimize sedation as able
Follow hemoglobin, repeat in p.m.
Minimize transfusion but follow as patient continues to have burgundy stool
Discontinue A-line
Lopressor with hold parameters. Follow-up tachycardia
Follow-up platelets. HIT panel pending
Maintain active type and screen
Remains on Unasyn therapy for MSSA respiratory culture, Streptococcus salivarius blood culture
Splenic infarcts noted per imaging. TTE unremarkable
Follow-up blood cultures negative to date
CRRT discontinued. Now HD per nephrology. Eventual switch to HD catheter
Nutrition is an issue. GI to place Dobbhoff tube, start nutrition if okay with GI/colorectal
Continue with neurochecks. Patient with history of atrial fibrillation, not able to anticoagulate
IV Tylenol for pain
Reviewed with critical care nursing, respiratory care, pharmacy, case management
Reviewed with at bedside
TCCT 32 min
Original Note:
Today's Communication / Plan
Recommendations
Check ammonia levels
Off sedation, off vasopressors
Standing order for Lopressor with holding parameters
Check hemoglobin in p.m.
Type and crossmatch blood in a.m.
Neurochecks frequently to assess mental status
Assessment
-
Impression
Patient is a 64-year-old male, recently diagnosed with colorectal carcinoma and the disease is presumably advanced, had a lung nodule that was supposed to be biopsied but patient ended up in the ER for dizziness secondary to recent atrial
fibrillation. As his workup was being done in the ER for CHRISS and anemia along with dizziness, patient decompensated, had acute respiratory failure, nonresponsive to nonrebreather mask and noninvasive ventilation, ended up in ICU, rapid response was
called, had to be intubated.
Currently patient is critically ill, has multiorgan failure, including acute respiratory failure, acute renal insufficiency, hypoxic liver, and recently had bloody bowel movements.
Heparin infusion held secondary to the GI bleed. Colorectal surgery evaluated the patient and recommended CTA, which came back negative for any active bleed,GI signed off as no further bleeding.
Currently patient is off sedation, off vasopressors, extubated, on BiPAP, has no purposeful movements, agitated, breathing on 4 L of oxygen via nasal cannula.
Condition critical
Assessment:
# Atrial fibrillation with rapid ventricular response
# Change in mental status
#Acute rectal bleeding in the setting of colorectal carcinoma/heparin infusion
#Acute respiratory failure
#CHRISS now on CRRT
#Streptococcal bacteremia
#Acute HFpEF exacerbation
#Metabolic acidosis with increased anion gap due to severe CHRISS and lactic acidosis
#Transaminitis secondary to hypoxic liver
Plan:
# Atrial fibrillation with rapid ventricular response
Overnight, patient had an episode of rapid A-fib, where his heart rate jumped up to 130s
Patient has history of atrial fibrillation, Lopressor was on hold due to low blood pressure
Now patient has stable blood pressures, added Lopressor with holding parameters for systolic blood pressure of less than 100
# Change in mental status
On 08/08, patient's mental status was altered in terms of responsiveness, CT scan of head was repeated, within normal limits
On 08/09, patient is agitated/no purposeful movements, platelet counts dropping, history of rectal bleed-ammonia levels checked-less than 9
Continue neurochecks
#Acute rectal bleeding in the setting of colorectal carcinoma/heparin infusion
Patient had bloody bowel movements on 08/06/2024 with roughly 1 L of blood loss
Colorectal surgery consult apprec-CTA negative
Hemoglobin remained stable around 9, no further bleed, GI signed off
Platelet counts continue to drop-HIT panel pending
consult storm door maker for tube feedings
#Acute respiratory failure
Patient was on mechanical ventilation since 07/31/2024
Extubated on 08/08/2024
On BiPAP, IPAP 10, EPAP 5, set rate 12, continue overnight, intermittently during day
Chest x-ray 08/08
IMPRESSION:
Some hazy bibasilar opacification which could represent atelectasis and/or pneumonia and small bilateral pleural effusions, perhaps slightly increased.
#CHRISS now on CRRT
Patient has had worsening renal creatinine function --->placed on CRRT on August 01, 2024
Nephro consult appreciated-on intermittent hemodialysis, Alvarez catheter out
Plan to switch to tunneled hemodialysis catheter
Continue to trend urine output, serum creatinine, lactic acid, and bicarb
Serum Cr 3.5,HCO3 is 21
#Streptococcal bacteremia
Patient remains critically ill
ID consult apprec--Antibiotic switched to unasyn by ID(DAY-4)
Echo repeated on 08/07/2024-There is no evidence of vegetation or embolic source seen.
Blood cultures in progress, no growth to date from blood cultures sent on 08/03/2024-patient off vasopressors
New splenic infarct concerning-no growth on blood culture or sputum culture in last 24 hours
#Acute HFpEF exacerbation secodary to A-fib with RVR/Acute diastolic CHF
Patient presented with rapid development of pulmonary edema
Updated echo(08/04/2024)-normal biventricular function with normal ejection fraction
Cardio consult appreciated-suggest heart failure with preserved ejection fraction given the recent pulmonary edema
Cause of pulmonary edema could be the rapid A-fib
Patient had A-fib with RVR on presentation, had another episode overnight, added Lopressor with holding parameters
Placed on heparin infusion based on [id number] score/malignancy-off heparin now-given recent bloody bowel movements
#Metabolic acidosis with increased anion gap due to severe CHRISS and lactic acidosis
Lactic acidosis resolved, bicarb 21
Patient shifted from CRRT to intermittent hemodialysis as per nephrology
#Transaminitis secondary to hypoxic liver
Patient had a shock liver response to hypoperfusion secondary to septic shock/cardiogenic shock
AST was greater than 7500 and ALT was greater than 4000
Liver enzymes trending down(AST 460,ALT 104,ALP 357,Total power 5.2)
Limit Tylenol to less than 2 g daily to avoid liver damage
Hold statin with elevated LFTs.
Family is aware of the patient's critical condition
#Other Medical conditions
#Metastatic colorectal cancer with suspected lung metastasis (diagnosed via colonoscopy on 06/22/2024 with partially obstructing tumor seen in the rectum 4 cm from the anal verge, invasive low-grade colorectal adenocarcinoma)
#PET avid 2.2 cm right upper lobe nodule originally planned for robotic bronchoscopy on 08/03/2024 (will be deferred for now)
#HAN on auto CPAP
#History of psoriasis previously on Enbrel
#History of hepatitis A
#History of COVID-19 (04/03)
#Restrictive lung disease (suspected based on spirometry from 05/15/2021, however patient was coughing during testing and post-bronchodilator FVC was WNL at 84% predicted
CODE status-currently full code
DVT prophylaxis-Sequential compression devices
Subjective Dataa
Subjective Data
Date of Service:
Date of Service: August 09, 2024
Chief Complaint: Postal Sorting Officer Follow Up, Pulmonary Follow Up and Vent Management Follow Up
Subjective:
Patient remains critically ill
Extubated yesterday, maintaining saturation, on BiPAP every night and intermittently during the day, on 4 L of oxygen
On intermittent hemodialysis, hemodialysis session due today, Alvarez is out
Remove the arterial line today
Off sedation, off vasopressors, not responding to commands, remains agitated
Check ammonia levels-less than 9 this a.m.
Review of Systems
General: Unobtainable - Pat Unresp and Unobtainable - Sedation
Objective Data
Data Reviewed
Vital Signs / I&O / Oxygen:
Vital Signs
Temp Pulse Resp BP Pulse Ox
98.7 F 111 28 107/55 100
08/09/24 07:20 08/09/24 10:00 08/09/24 10:00 08/09/24 10:00 08/09/24 10:00
Intake and Output
08/08/24 08/09/24 08/10/24
06:59 06:59 06:59
Intake Total 1675.9 / 1767.4 524.4 / 524.4 0 / 0
Output Total 3407 / 3588 185 / 185 0 / 0
Balance -1731.1 / -1820.6 339.4 / 339.4 0 / 0
SaO2 [CPAP] 100
SaO2 [A/C] 99
SaO2 100
Nasal Cannula flow liters per 4
minute
Physical Exam
General: Other (Patient is unresponsive, agitated but does not follow the commands, breathing on 4 L of oxygen, ongoing hemodialysis)
HEENT: Normocephalic and Anicteric
Cardiovascular: S1-S2, Irregular Rhythm (Tachycardia with heart rate greater than 110) and Peripheral Edema (+1 lower extremity edema bilaterally, With bilateral mottling of legs)
Respiratory: Clear and Other (Harsh vesicular breathing)
GI: Soft, Distended (Abdominal obesity) and Normal Bowel Sounds
Neurology: Other (Pupils +1 mm bilaterally; no purposeful movements, unable to follow commands)
Skin: Warm, Dry and Other (Legs appear mottled)
Labs/Micro/Reports
Lab Data
08/09/24 03:09
Laboratory Results
08/08/24 08/09/24
11:47 03:09
pH 7.40 7.39
pCO2 37 33 L
pO2 103 138 H
HCO3 22.9 20.0 L
O2 Delivery Level
Microbiology
08/07/24 10:52 Sputum Respiratory Culture - Preliminary
NO GROWTH
08/07/24 10:52 Sputum Gram Stain - Preliminary
08/07/24 11:39 Blood/Venous Blood Culture - Preliminary
No Growth in 24 hours- Final report to follow
08/07/24 11:27 Blood/Venous Blood Culture - Preliminary
No Growth in 24 hours- Final report to follow
08/03/24 03:28 Blood/Venous Blood Culture - Final
No Growth - Final Report
08/03/24 03:41 Blood/Venous Blood Culture - Final
No Growth - Final Report
08/01/24 18:19 Blood/Venous Blood Culture - Final
No Growth - Final Report
08/01/24 15:36 Blood/Venous Blood Culture - Final
No Growth - Final Report
07/31/24 12:18 Endotracheal Respiratory Culture - Final
S aureus-Methicillin Sensitive
07/31/24 12:18 Endotracheal Gram Stain - Final
--- NOTE | 2024-08-09 11:28 | PTCARENOTE ---
Addendum entered by Marya Vallecillo RN 08/09/24 11:40:
pt off bipap on 4L nasal cannula
Original Note:
plan of care discussed with Raymond GRAYSON from and Dr. Jackson- pt remains lethargic, moving extremities, not following commands, no further orders from md. pt remains on hd. remains in afib, pvcs, 12 beat run of svt- bp stable.
[2024-08-09 12:24] LABS: Glucose - Point of Care 100 mg/dl (70-99)
--- NOTE | 2024-08-09 12:42 | PTCARENOTE ---
pt became combative during incontinence care, opened eyes. full bed bath provided. bladder scanned for 0ml.
--- NOTE | 2024-08-09 12:54 | W.PN.CARDCBS ---
Today's Communication / Plan
-
Dobbhoff to be placed start Lopressor 25 mg every 6 hours by tube and continue IV as needed for heart rate greater than 110 bpm. Discontinue standing IV Lopressor.
Continue supportive care
Atrial fibrillation remains but currently not on anticoagulation candidate
Impression / Plan
-
.
Primary Flap Maker: Dr. Hiren Vicente
Impression:
MSOF (resp failure, CHF, liver failure, renal failure)
GI bleeding
Hypotension previously requiring pressors
CHRISS (likely as a consequence of hypotension, possibly from septic shock versus cardiogenic shock or combination of both)
Acute hypoxic respiratory failure requiring intubation 07/31/24
Liver failure (likely as a consequence of hypotension, possibly from septic shock versus cardiogenic shock or combination of both)
Fever
Sepsis, s aureus PNA, possible S aureus bacteremia
Acute diastolic CHF
Recent diagnosis paroxysmal atrial fibrillation with recurrent AFib with RVR
Colorectal cancer, suspected metastatic, diagnosed 06/22/2024, not yet started on therapy
Pulmonary nodule with concern for metastasis, scheduled for lung biopsy 08/03
Hypertension
Hyperlipidemia
Obstructive sleep apnea
Obesity
Edema
ECHO 07/31/24: Normal LV function. LVEF is 55-60%. No wall motion abnormality. Top normal right ventricular size with normal RV function. Mild AI and mild TR. Estimated pulmonary artery pressure of 38 mmHg
Plan:
He remains critically ill with MSOF (resp failure, CHF, liver failure, renal failure), shock, sepsis, lactic acidosis.
He is currently off of pressors. Blood pressure is acceptable.
Rhythm has been atrial fibrillation. Increased rates noted. At this time not an anticoagulation candidate.
-They are placing a Dobbhoff tube. Once in place we will start metoprolol tartrate oral 25 mg every 6 hours with as needed dosing of IV as needed for heart rate above 110 bpm
Heparin has been discontinued due to anemia
Nephrology has now proceeded with dialysis.
Hold statin with elevated LFTs.
LFTs slowly improving
Discussed with nursing and family at bedside
HPI:
64-year-old man with recently diagnosed colorectal cancer with possible lung metastasis and recent diagnosis of atrial fibrillation who presented with lightheadedness and dizziness after starting oral metoprolol as an outpatient and presented to
[place] emergency department for further management. After being found to have CHRISS and anemia he was admitted for further management. Unfortunately developed increased work of breathing this morning, became tachycardic and was found to be
febrile. Did not clinically improve with BiPAP and he was subsequently intubated and transferred to the medical ICU for further management. Currently being treated with broad-spectrum antibiotics and requiring pressor support.
Seen in the outpatient cardiology office 07/26/24 and was in AF with a rapid ventricular rate of 130 bpm. At that visit he had yet to initiate Toprol-XL which was ordered by his primary care physician. At that office visit he agreed to initiate
Toprol-XL 25 mg daily for rate control with plan to defer recommendations regarding rhythm control until he was adequately anticoagulated (atrial fibrillation of unknown duration) and to allow for intermittent interruption of anticoagulation for
planned upcoming procedures regarding his recently diagnosed colorectal cancer with likely pulmonary metastases (bronchoscopy, port placement, colorectal surgery). Eliquis 5 mg twice daily was also initiated on 07/26/24..
Cardiology is consulted for possible heart failure as a cause of his respiratory decompensation. proBNP was mildly elevated (3210), it is possible there is some component of heart failure with preserved ejection fraction.
On presentation to the emergency department 07/30/24, he was in atrial fibrillation with reasonably controlled ventricular rate of 105 bpm. EKG of July 31, 2024 finds sinus rhythm at 77 bpm.
Progress Note - Flap Maker
Subjective
Date of Service: August 09, 2024
He is sleepy but tries to answer questions. Family at the bedside.
Objective
Labs:
08/09/24 03:09
Labs
Hgb 8.2 g/dL (13.0-18.0) L 08/09/24 03:09
Hct 25.3 % (39.0-52.0) L 08/09/24 03:09
Plt Count 58 10^3/uL (130-400) L 08/09/24 03:09
PT 19.5 Sec (11.4-14.6) H 08/07/24 11:27
INR 1.62 08/07/24 11:27
APTT 54.9 Sec (23.4-35.0) H 08/07/24 11:27
Sodium 138 mmol/L (135-145) 08/09/24 03:09
Potassium 4.0 mmol/L (3.5-5.1) 08/09/24 03:09
BUN 51 mg/dl (9-20) H 08/09/24 03:09
Creatinine 3.5 mg/dL (0.7-1.3) H 08/09/24 03:09
Glucose 111 mg/dl (70-99) H 08/09/24 03:09
Vital Signs and I&O:
Vital Signs
Temp Pulse Resp BP Pulse Ox
98.4 F 120 28 123/48 100
08/09/24 11:48 08/09/24 12:32 08/09/24 12:30 08/09/24 12:32 08/09/24 12:30
Vital Signs
Temp Pulse Resp BP Pulse Ox
98.4 F 120 28 123/48 100
08/09/24 11:48 08/09/24 12:32 08/09/24 12:30 08/09/24 12:32 08/09/24 12:30
Intake & Output
08/07/24 08/08/24 08/09/24 08/10/24
06:59 06:59 06:59 06:59
Intake Total 1903.9 / 1981.9 1675.9 / 1767.4 524.4 / 524.4 0 / 0
Output Total 1892 3407 / 3588 185 / 185 0 / 0
Balance 10.9 / -3.1 -1731.1 / -1820.6 339.4 / 339.4 0 / 0
Physical Exam
Physical Exam
General: Sleepy
Heart: Distant heart sounds tachycardia
Lungs: Coarse anterior breath
Extremities: +1 edema left greater than right
Neuro: sleeping
--- NOTE | 2024-08-09 13:00 | WOUNDNOTE ---
[facility] RN note: Patient admitted with CHRISS, change in mental status, GI bleed, multiorgan failure. Recently extubated, on pressors.
See H&P for complete history.
PMH: recent colorectal cancer, a fib, HTN, restrictive lung disease, sleep apnea, psoriasis, R knee and ankle surgery, pitting LE edema, anemia, a fib (Eliquis).
Wound Location and type/assessment: Patient developed a sacral/buttocks DTI, skin purple (blanchable and non blanchable). Patient has bilateral skin small abrasions.
Appetite: Dobhoff tube to be inserted today as per SAMIA Malhotra.
Pressure redistribution devices in place: Centrella Max air bed. +Anasarca. Patient immobile.
Plan: Sacral silicone border foam maintained. Patient turned to R semi side lying position with help from SAMIA Malhotra and PCT Francie. Heels off bed with pillows. t/c SPD and ordered TruVue lite boots. U
Updated and confirmed orders with Dr. Jackson. Discussed with SAMIA Malhotra and patient's .
Care plan to be updated and will follow as needed.
Note to case management of equipment requested for discharge: Air mattress.
Recommend follow up at wound care center upon discharge.
--- NOTE | 2024-08-09 13:38 | W.PN.UPDATE ---
Addendum entered and electronically signed by RENUKA Danielle 08/09/24 17:43:
DHT within stomach ok to use for meds and feeds reviewed with nursing staff
Original Note:
Update Note
Progress Note Update
DHT placed with Latha GRACIA left nare at 65 cm without difficulty. Will check X ray to confirm placement. add Restraints as needed to prevent from pulling at tube.
--- NOTE | 2024-08-09 13:40 | CM ---
CM following re: discharge planning.
Discussed in rounds, reviewed pt's chart, met with pt and family at bedside.
Pt requires 4L NC of O2, Bi-pap at night, HD treatment today, continue supportive care.
PT and OT will evaluate the pt when clinically appropriate to determine a level of care at discharge.
D/C plan: uncertain at this time and will depend on pt's progress.
CM will follow with discharge plan updates as hospitalization progresses
--- NOTE | 2024-08-09 14:00 | WOUNDNOTE ---
[facility] RN note: Patient admitted with CHRISS, change in mental status, GI bleed, multiorgan failure. Recently extubated, on pressors.
See H&P for complete history.
PMH: recent colorectal cancer, a fib, HTN, restrictive lung disease, sleep apnea, psoriasis, R knee and ankle surgery, pitting LE edema, anemia, a fib (Eliquis).
Wound Location and type/assessment: Patient developed a sacral/buttocks DTI, skin purple (blanchable and non blanchable). Platelets 48. Patient has bilateral skin small abrasions.
Appetite: Dobbhoff tube to be inserted today as per SAMIA Malhotra.
Pressure redistribution devices in place: Centrella Max air bed. +Anasarca. Patient immobile.
Plan: Sacral silicone border foam maintained. Patient turned to R semi side lying position with help from SAMIA Malhotra and PCT Francie. Heels off bed with pillows. t/c SPD and ordered TruVue lite boots. Discussed with SAMIA Malhotra. Suspect pressure
injury unavoidable d/t multiorgan failure, low platelets, on vasopressors, respiratory status.
Updated and confirmed orders with Dr. Jackson. Discussed with SAMIA Malhotra and patient's .
Care plan to be updated and will follow as needed.
Note to case management of equipment requested for discharge: Air mattress.
Recommend follow up at wound care center upon discharge.
--- NOTE | 2024-08-09 14:13 | PTCARENOTE ---
Adriana GRAYSON and Latha Nichols RN placed left nare dobhoff at 65cm, xray obtained. pt restrained for attempting to pull at tubes. family at bedside and updated. wound rn in to see pt, see notes.
--- NOTE | 2024-08-09 14:15 | PTCARENOTE ---
Small bore feeding tube inserted via the L nare at the 65 cm romeo. ABd Xray done for placement. No distress noted. Sats 100%
--- NOTE | 2024-08-09 15:48 | PTCARENOTE ---
pt taken to ir at 1500 for new hd cath.
[2024-08-09 16:06] LABS: % Basophils 0.4 % (0-2); % Eosinophils 0.1 % (0-6); % Immature Granulocytes 0.8 % (0-0.5); % Monocytes 5.2 % (1.7-9.3); % Neutrophils 83.5 % (42.2-75.2); Absolute Immature Granulocytes 0.1 10^3/uL (0-0.05); Absolute Lymphocytes 1.1 10^3/uL (1.2-3.4); Absolute Monocytes 0.6 10^3/uL (0.1-0.6); Absolute Neutrophils 8.9 10^3/uL (1.4-6.5); Hematocrit 24.8 % (39.0-52.0); Hemoglobin 8.1 g/dL (13.0-18.0); Mean Corp Hgb Conc. 32.7 g/dL (33.0-37.0); Mean Corpuscular Hgb 27.7 pg (27.0-31.0); Mean Corpuscular Volume 84.9 fL (80.0-94.0); Mean Platelet Volume 11.3 fL (7.4-10.4); Nucleated Red Blood Cells % 0 % (-); Platelet Count 48 10^3/uL (130-400); Red Blood Cell Count 2.92 10^6/uL (4.70-6.10); Red Cell Dist. Width 19.2 % (11.5-14.5); White Blood Cell Count 10.7 10^3/uL (4.8-10.8)
--- NOTE | 2024-08-09 17:00 | WOUNDNOTE ---
[facility] RN Note: Z aida adult fluidized positioner left in patient's room. Discussed with SAMIA Malhotra earlier today. [place] texted BUD Ledesma around 16:20 re: patient has a sacral DTI and will need an air mattress at SNF/rehab.
--- NOTE | 2024-08-09 17:38 | PTCARENOTE ---
pt back from IR, right chest wall hd cath c/d/i. right picc c/d/i. pt remains lethargic, moaning at times. incontinent care provided. turned and repositioned. frequent oral care.
[2024-08-09] MEDS: LOPRESSOR 25 MG TUBE ×2 (17:45→23:02)
[2024-08-09 17:54] LABS: Glucose - Point of Care 90 mg/dl (70-99)
[2024-08-09 20:10] LABS: Hepatitis B Surface Antigen Negative (Negative)
--- NOTE | 2024-08-09 20:14 | PTCARENOTE ---
Received pt from previous RN. Pt is AAOx1 (self), drowsy/lethargic, nods head, opens eyes @ times. Restraints in place (see worklist). Afib w/ PVCs. On 5L NC O2 sat 100%, lungs diminished/coarse. Bipap HS. Left nare dobhoff @ 65 cm. Nepro @ 20 ml,
25 ml water flush. Fecal pouch in place. Anuric. SCDs and foam boats in place. Mouth care provided. Safe environment maintained.
[2024-08-09 20:29] LABS: Hepatitis B Surface Antibody Negative; Hepatitis C Antibody Negative (Negative)
--- NOTE | 2024-08-09 22:50 | PTCARENOTE ---
Systems reviewed, no new changes in assessment. Restraints removed. Pt placed on bipap / @ 4L.
[2024-08-09 23:13] LABS: Glucose - Point of Care 103 mg/dl (70-99)
[2024-08-10] VITALS (24 sets, daily range): BP systolic 117–150; BP diastolic 40–71; PULSE 2–118; O2SAT 100; BMI 38.5
--- NOTE | 2024-08-10 03:23 | PTCARENOTE ---
Systems reviewed, no new changes in assessment. CHG bath provided. AM labs provided. Safe environment maintained.
[2024-08-10 03:40] LABS: % Basophils 0.5 % (0-2); % Eosinophils 0.3 % (0-6); % Immature Granulocytes 0.9 % (0-0.5); % Lymphocytes 10.6 % (20.5-51.1); % Monocytes 6.8 % (1.7-9.3); % Neutrophils 80.9 % (42.2-75.2); Absolute Immature Granulocytes 0.1 10^3/uL (0-0.05); Absolute Lymphocytes 0.9 10^3/uL (1.2-3.4); Absolute Monocytes 0.6 10^3/uL (0.1-0.6); Absolute Neutrophils 7.1 10^3/uL (1.4-6.5); Hematocrit 26.5 % (39.0-52.0); Hemoglobin 8.3 g/dL (13.0-18.0); Mean Corp Hgb Conc. 31.3 g/dL (33.0-37.0); Mean Corpuscular Hgb 27.1 pg (27.0-31.0); Mean Corpuscular Volume 86.6 fL (80.0-94.0); Mean Platelet Volume 10.7 fL (7.4-10.4); Nucleated Red Blood Cells % 0 % (-); Platelet Count 54 10^3/uL (130-400); Red Blood Cell Count 3.06 10^6/uL (4.70-6.10); Red Cell Dist. Width 19.6 % (11.5-14.5); White Blood Cell Count 8.8 10^3/uL (4.8-10.8)
[2024-08-10 04:17] LABS: ALT (SGPT) 93 U/L (0-50); AST (SGOT) 450 U/L (17-59); Alkaline Phosphatase 375 U/L (38-126); Blood Urea Nitrogen 44 mg/dl (9-20); Calcium 7.8 mg/dl (8.4-10.2); Carbon Dioxide 25 mmol/L (22-30); Chloride 103 mmol/L (98-107); Estimated Creatinine Clearance 33 ml/min; Glucose 109 mg/dl (70-99); Potassium 3.7 mmol/L (3.5-5.1); Sodium 138 mmol/L (135-145); Total Bilirubin 5.3 mg/dl (0.2-1.3); Total Protein 5.8 g/dl (6.3-8.2); eGFR 21.07
[2024-08-10 04:23] LABS: Albumin 2.5 g/dl (3.5-5.0)
[2024-08-10] MEDS: LOPRESSOR 25 MG TUBE (05:14)
[2024-08-10] MEDS: UNASYN IV ×2 (05:15→17:32)
[2024-08-10] MEDS: NOVOLOG FLEXPEN-MODERATE RESISTANCE SC ×3 (05:28→17:34)
[2024-08-10 05:41] LABS: Glucose - Point of Care 106 mg/dl (70-99)
[2024-08-10] MEDS: PROTONIX IV 40 MG IV (07:43)
[2024-08-10] MEDS: NSS (PRESERVATIVE FREE) 10 ML IV (07:43)
--- NOTE | 2024-08-10 08:07 | PTCARENOTE ---
pt received from previous rn- drowsy, arouses to verbal and tactile. pt able to say name, follow simple commands, moves all extremities. oral care provided. left nare dobhoff in place with tube feeds infusing, pt tolerating. pt afib on monitor, off
bipap and on 2LNC and tolerating. pt with frequent moist cough. pt continues with small amounts of burgundy stools, fecal incontinence pouch intact. turned and repositioned. all safety precautions in place.
--- NOTE | 2024-08-10 09:48 | W.PN.CARDCBS ---
Today's Communication / Plan
-
Remains in AFib, increase metoprolol for goal HR <110 bpm
Eventual OAC, currently on hold
Impression / Plan
-
Primary Sign Hanger: Dr. Hiren Vicente
Impression:
MSOF (resp failure, CHF, liver failure, renal failure)
GI bleeding
Hypotension previously requiring pressors
CHRISS (likely as a consequence of hypotension, possibly from septic shock versus cardiogenic shock or combination of both)
Acute hypoxic respiratory failure requiring intubation 07/31/24
Liver failure (likely as a consequence of hypotension, possibly from septic shock versus cardiogenic shock or combination of both)
Fever
Sepsis, s aureus PNA, possible S aureus bacteremia
Acute diastolic CHF
Recent diagnosis paroxysmal atrial fibrillation with recurrent AFib with RVR
Colorectal cancer, suspected metastatic, diagnosed 06/22/2024, not yet started on therapy
Pulmonary nodule with concern for metastasis, scheduled for lung biopsy 08/03
Hypertension
Hyperlipidemia
Obstructive sleep apnea
Obesity
Edema
ECHO 07/31/24: Normal LV function. LVEF is 55-60%. No wall motion abnormality. Top normal right ventricular size with normal RV function. Mild AI and mild TR. Estimated pulmonary artery pressure of 38 mmHg
Plan:
Presented MSOF (resp failure, CHF, liver failure, renal failure), shock, sepsis, lactic acidosis, but is recovering
Now extubate
Currently off of pressors. Blood pressure is acceptable.
Rhythm has been atrial fibrillation. Increased HR noted at at times but overall between 110-110bpm.
Uptitrate metoprolol tartrate to 50 mg every 6 hours via tube
As needed dosing of IV as needed for heart rate above 110 bpm
Heparin has been discontinued due to anemia. At this time not an anticoagulation candidate.
Nephrology managing volume with dialysis.
Hold statin with elevated LFTs. LFTs slowly improving.
Discussed with family at bedside
HPI:
64-year-old man with recently diagnosed colorectal cancer with possible lung metastasis and recent diagnosis of atrial fibrillation who presented with lightheadedness and dizziness after starting oral metoprolol as an outpatient and presented to
[place] emergency department for further management. After being found to have CHRISS and anemia he was admitted for further management. Unfortunately developed increased work of breathing this morning, became tachycardic and was found to be
febrile. Did not clinically improve with BiPAP and he was subsequently intubated and transferred to the medical ICU for further management. Currently being treated with broad-spectrum antibiotics and requiring pressor support.
Seen in the outpatient cardiology office 07/26/24 and was in AF with a rapid ventricular rate of 130 bpm. At that visit he had yet to initiate Toprol-XL which was ordered by his primary care physician. At that office visit he agreed to initiate
Toprol-XL 25 mg daily for rate control with plan to defer recommendations regarding rhythm control until he was adequately anticoagulated (atrial fibrillation of unknown duration) and to allow for intermittent interruption of anticoagulation for
planned upcoming procedures regarding his recently diagnosed colorectal cancer with likely pulmonary metastases (bronchoscopy, port placement, colorectal surgery). Eliquis 5 mg twice daily was also initiated on 07/26/24..
Cardiology is consulted for possible heart failure as a cause of his respiratory decompensation. proBNP was mildly elevated (3210), it is possible there is some component of heart failure with preserved ejection fraction.
On presentation to the emergency department 07/30/24, he was in atrial fibrillation with reasonably controlled ventricular rate of 105 bpm. EKG of July 31, 2024 finds sinus rhythm at 77 bpm.
Progress Note - Sign Hanger
Subjective
Date of Service: August 10, 2024
NAOE. Extubated, but remains in ICU. No cardiac complaints, but confused/delirious.
Objective
Labs:
08/10/24 03:30
08/10/24 03:30
Labs
Hgb 8.3 g/dL (13.0-18.0) L 08/10/24 03:30
Hct 26.5 % (39.0-52.0) L 08/10/24 03:30
Plt Count 54 10^3/uL (130-400) L 08/10/24 03:30
PT 19.5 Sec (11.4-14.6) H 08/07/24 11:27
INR 1.62 08/07/24 11:27
APTT 54.9 Sec (23.4-35.0) H 08/07/24 11:27
Sodium 138 mmol/L (135-145) 08/10/24 03:30
Potassium 3.7 mmol/L (3.5-5.1) 08/10/24 03:30
BUN 44 mg/dl (9-20) H 08/10/24 03:30
Creatinine 3.2 mg/dL (0.7-1.3) H 08/10/24 03:30
Glucose 109 mg/dl (70-99) H 08/10/24 03:30
Vital Signs and I&O:
Vital Signs
Temp Pulse Resp BP Pulse Ox
98.7 F 102 30 128/45 100
08/10/24 08:00 08/10/24 08:00 08/10/24 08:00 08/10/24 08:00 08/10/24 08:00
Vital Signs
Temp Pulse Resp BP Pulse Ox
98.7 F 102 30 128/45 100
08/10/24 08:00 08/10/24 08:00 08/10/24 08:00 08/10/24 08:00 08/10/24 08:00
Intake & Output
08/08/24 08/09/24 08/10/24 08/11/24
06:59 06:59 06:59 06:59
Intake Total 1675.9 / 1767.4 524.4 / 524.4 850 / 915
Output Total 3407 / 3588 185 / 185 110 / 110
Balance -1731.1 / -1820.6 339.4 / 339.4 740 / 805
Physical Exam
Physical Exam
Gen: NAD, AA
HEENT: NC/AT, sclera anicteric, dobhoff in place
Neck: No JVD
CV: irregularly irregular, no M/R/G
Lungs: No increase WOB on supplemental O2 via NC
Abd: S/ND
Ext: ++pedal edema
Skin: Warm, dry
Neuro: Non-focal
--- NOTE | 2024-08-10 09:55 | W.PN.ID1 ---
Date of Service
Date of Service: August 10, 2024
Today's Communication
- c/w unasyn day 5 tentatively of 7, dosed for HD
Assessment / Plan
S aureus (MSSA) Pneumonia
Resolved shock
Strep salivarius bacteremia x 2 sets drawn at the same time - most likely contaminant
Septic shock, remains on pressors
CHRISS now transitioning to HD
Class III Obesity
Colorectal Adenocarcinoma - not yet on treatment
Psoriatic Arthritis - currently off of Enbrel since ~05/03
- follow thrombocytopenia - stable to minimally improved
- new splenic infarction seen on CTA 08/06 - embolic vs thrombotic
- repeat blood cultures x2 no growth to date
- 08/07 TTE - normal EF, no vegetation or embolic source seen
- would still consider S salivarius most likely contaminant
08/07 sputum culture: few mixed morphotypes; negative
- 07/31 sputum: MSSA
- c/w unasyn day 5 tentatively of 7, dosed for HD
- follow clinically
Chief Complaint
-: Pneumonia (S aureus), Bacteremia (streptococcus) and Other (shock)
Subjective / Review of Systems
afebrile
pressors off today
following simple commands, frequent moist cough
small burgundy stools
now with tunneled HD cath and dobhoff tube
Vital Signs / Physical Exam
Vital Signs
Vital Signs
Temp Pulse Resp BP Pulse Ox
98.7 F 102 30 128/45 100
08/10/24 08:00 08/10/24 08:00 08/10/24 08:00 08/10/24 08:00 08/10/24 08:00
Physical Exam
Constitutional: Chronically Ill and Non-toxic
Cardiovascular: Regular Rate and S1/S2; Negative Murmur or Rub
Pulmonary: Clear and Symmetric; Negative Wheezes or Rales
Gastrointestinal: Soft, Non Tender, Non Distended and Normal Bowel Sounds
Skin: Warm and Dry; Negative Rash or Jaundice
Neurological: Awake and Alert
Objective Data
Lab Data
Lab Results
08/10/24 03:30
08/10/24 03:30
PT 19.5 Sec (11.4-14.6) H 08/07/24 11:27
INR 1.62 08/07/24 11:27
APTT 54.9 Sec (23.4-35.0) H 08/07/24 11:27
Estimated Creat Clear 33 ml/min 08/10/24 03:30
Lactic Acid 1.7 mmol/L (0.7-2.0) 08/06/24 03:26
Total Bilirubin 5.3 mg/dl (0.2-1.3) H 08/10/24 03:30
AST 450 U/L (17-59) H 08/10/24 03:30
ALT 93 U/L (0-50) H 08/10/24 03:30
Alkaline Phosphatase 375 U/L (38-126) H 08/10/24 03:30
Most recent labs reviewed.
L shift improved, not yet resolved
ammonia <9
LFTs improving
Micro Results:
08/07/24 11:39 Blood Culture - Preliminary
Blood/Venous No Growth in 48 hours- Final report to follow
08/07/24 11:27 Blood Culture - Preliminary
Blood/Venous No Growth in 48 hours- Final report to follow
08/07/24 10:52 Respiratory Culture - Preliminary
Sputum NO GROWTH
Gram Stain - Preliminary
08/03/24 03:28 Blood Culture - Final
Blood/Venous No Growth - Final Report
08/03/24 03:41 Blood Culture - Final
Blood/Venous No Growth - Final Report
08/01/24 18:19 Blood Culture - Final
Blood/Venous No Growth - Final Report
08/01/24 15:36 Blood Culture - Final
Blood/Venous No Growth - Final Report
07/31/24 12:18 Respiratory Culture - Final
Endotracheal S aureus-Methicillin Sensitive
Gram Stain - Final
07/31/24 07:54 Blood Culture - Final
Blood/Venous Streptococcus salivarius
Gram Stain - Final
07/31/24 07:54 Blood Culture - Final
Blood/Venous Streptococcus salivarius
Gram Stain - Final
07/31/24 11:49 Legionella Urinary Antigen - Final
Urine Negative for Legionella pneumophila Serogroup 1 antigen.
A negative result does not rule out the possiblity of
Legionella infection due to other serogroups or species of
Legionella. Clinical correlation is recommended.
Streptococcus pneumoniae Antigen (M - Final
Negative for Streptococcus pneumoniae antigen.
A negative result does not exclude infection with
Streptococcus pneumoniae. Clinical correlation is
recommended.
07/31/24 12:18 Nasal Screen MRSA (PCR) - Final
Nose MRSA not detected - performed by PCR methodology.
07/31/24 08:10 Influenza Types A & B (KHANG) - Final
Nasal Swab Negative for Influenza A & B, NAAT
Negative results must be combined with clinical observations
and patient history.
Nucleic Acid Amplification test (NAAT)performed on the
[employer] platform.
08/04/24 CXR: Moderate pulmonary edema, without significant change.
--- NOTE | 2024-08-10 10:24 | W.PN.INTV ---
Addendum entered and electronically signed by Ok Olguin MD 08/10/24 12:02:
Patient seen and examined independently by myself. Resident note reviewed below. Agree with assessment and plan
Patient does appear to be more alert today, following commands, speaking 1 word sentences.
Off pressors. Heart rate noted, tolerating beta-nirav
Physical exam
Dobbhoff tube in place. Mild abdominal distention, no discomfort
Chest exam with decreased breath sounds at base. Patient with rhonchorous cough
1-2+ edema. A-line discontinued
Data reviewed
Platelets noted, 54, seem to be stabilizing
Liver function slowly improving
Hemoglobin stable at 8.3
A/P
Continue with supportive care
Remains off pressors at this time. Tolerating the ramp-up of beta-nirav therapy. Atrial fibrillation noted
Cardiology following. Patient unable to receive anticoagulation at this time given lower GI bleed
Continue tube feeds
Maintain BiPAP nightly and as needed. Patient with severe sleep apnea, total index 75
Will obtain chest x-ray and ABG in the a.m.
PT/OT
Okay for transfer out of ICU. Pulmonary will follow briefly
Original Note:
Today's Communication / Plan
Recommendations
Continue to monitor hemodynamics,keep heart rate below 110,use lopressor
Titrate oxygen as able
Repeat ABGs and chest xray
Intermittent hemodialysis
Keep increasing tube feeds to reach goal of 55ml/hr
Monitor platelet count,follow HIT panel
PT/OT consult
Assessment
-
Impression
Patient is a 64-year-old male, recently diagnosed with colorectal carcinoma and the disease is presumably advanced, had a lung nodule that was supposed to be biopsied but patient ended up in the ER for dizziness secondary to recent atrial
fibrillation. As his workup was being done in the ER for CHRISS and anemia along with dizziness, patient decompensated, had acute respiratory failure, nonresponsive to nonrebreather mask and noninvasive ventilation, ended up in ICU, rapid response was
called, had to be intubated.
Currently patient is critically ill, has multiorgan failure, including acute respiratory failure, acute renal insufficiency, hypoxic liver, and recently had bloody bowel movements.
Heparin infusion held secondary to the GI bleed. Colorectal surgery evaluated the patient and recommended CTA, which came back negative for any active bleed,GI signed off as no further bleeding.
Currently patient is off sedation, off vasopressors, extubated, on BiPAP, breathing on 2 L of oxygen, on tube feeds, PICC line ,midline in place
Assessment:
# Atrial fibrillation with rapid ventricular response
# Change in mental status
#Acute rectal bleeding in the setting of colorectal carcinoma/heparin infusion
#Acute respiratory failure
#CHRISS now on CRRT
#Streptococcal bacteremia
#Acute HFpEF exacerbation
#Metabolic acidosis with increased anion gap due to severe CHRISS and lactic acidosis
#Transaminitis secondary to hypoxic liver
Plan:
# Atrial fibrillation with rapid ventricular response
Patient has history of paroxysmal atrial fibrillation, heart rate ranged up to 130s yesterday
Started on Lopressor, 50 mg every 6 hours via tube-in addition as needed doses through IV to keep heart rate below 110
Not on anticoagulation at this time-due to recent GI bleed and low platelet counts
HIT panel pending
Cardiology following-recommendations appreciated
# Change in mental status
On 08/08, patient's mental status was altered in terms of responsiveness, CT scan of head was repeated, within normal limits
On 08/09, patient is agitated/no purposeful movements, platelet counts dropping, history of rectal bleed-ammonia levels checked-less than 9
Continue neurochecks
#Acute rectal bleeding in the setting of colorectal carcinoma/heparin infusion
Patient had bloody bowel movements on 08/06/2024 with roughly 1 L of blood loss
Colorectal surgery consult apprec-CTA negative
Hemoglobin remained stable around 8, no further bleed, GI signed off
Platelet counts continue to drop-HIT panel pending
#Acute respiratory failure
Patient was on mechanical ventilation since 07/31/2024
Extubated on 08/08/2024
On BiPAP, IPAP 10, EPAP 5, set rate 12, continue overnight, intermittently during day
Currently breathing on 2 L of oxygen-titrate as able-repeat chest [id number] ABGs
#CHRISS now on CRRT
Patient has had worsening renal creatinine function --->placed on CRRT on August 01, 2024-tunneled catheter placed yesterday
Nephro consult appreciated-on intermittent hemodialysis, Alvarez catheter out
Continue to trend urine output, serum creatinine, lactic acid, and bicarb
Serum Cr 3.2,HCO3 is 25
#Streptococcal bacteremia
Patient remains critically ill
ID consult apprec--Antibiotic switched to unasyn by ID(DAY-4)
Echo repeated on 08/07/2024-There is no evidence of vegetation or embolic source seen.
Blood cultures in progress, no growth to date from blood cultures sent on 08/03/2024-patient off vasopressors
New splenic infarct concerning-no growth on blood culture or sputum culture in last 24 hours
#Acute HFpEF exacerbation secodary to A-fib with RVR/Acute diastolic CHF
Patient presented with rapid development of pulmonary edema
Updated echo(08/04/2024)-normal biventricular function with normal ejection fraction
Cardio consult appreciated-suggest heart failure with preserved ejection fraction given the recent pulmonary edema
Cause of pulmonary edema could be the rapid A-fib
#Metabolic acidosis with increased anion gap due to severe CHRISS and lactic acidosis
Lactic acidosis resolved, bicarb 25
On intermittent hemodialysis as per nephrology
#Transaminitis secondary to hypoxic liver
Patient had a shock liver response to hypoperfusion secondary to septic shock/cardiogenic shock
AST was greater than 7500 and ALT was greater than 4000
Liver enzymes trending down(AST 450,ALT 93,ALP 375,Total power 5.3)
Limit Tylenol to less than 2 g daily to avoid liver damage
Hold statin with elevated LFTs.
Family is aware of the patient's critical condition
#Other Medical conditions
#Metastatic colorectal cancer with suspected lung metastasis (diagnosed via colonoscopy on 06/22/2024 with partially obstructing tumor seen in the rectum 4 cm from the anal verge, invasive low-grade colorectal adenocarcinoma)
#PET avid 2.2 cm right upper lobe nodule originally planned for robotic bronchoscopy on 08/03/2024 (will be deferred for now)
#HAN on auto CPAP
#History of psoriasis previously on Enbrel
#History of hepatitis A
#History of COVID-19 (04/03)
#Restrictive lung disease (suspected based on spirometry from 05/15/2021, however patient was coughing during testing and post-bronchodilator FVC was WNL at 84% predicted
CODE status-currently full code
DVT prophylaxis-Sequential compression devices
Subjective Dataa
Subjective Data
Date of Service:
Date of Service: August 10, 2024
Chief Complaint: Core Extruder Follow Up, Pulmonary Follow Up and Vent Management Follow Up
Subjective:
Patient is more active and alert
Responding to commands, squeezed fingers on command, wiggle his toes on command, responds to questions with nodding of head
Off sedation, off vasopressors, breathing on 2 L of oxygen
Still very weak
On tube feeds at 40 mL/h
Review of Systems
General: Other (Patientresponsive, but still not able to speak clearly and is still lethargic)
Objective Data
Data Reviewed
Vital Signs / I&O / Oxygen:
Vital Signs
Temp Pulse Resp BP Pulse Ox
98.7 F 102 30 128/45 100
08/10/24 08:00 08/10/24 08:00 08/10/24 08:00 08/10/24 08:00 08/10/24 08:00
Intake and Output
08/09/24 08/10/24 08/11/24
06:59 06:59 06:59
Intake Total 524.4 / 524.4 850 / 915 195 / 195
Output Total 185 / 185 110 / 110
Balance 339.4 / 339.4 740 / 805
SaO2 [CPAP] 100
SaO2 [A/C] 99
SaO2 100
Nasal Cannula flow liters per 4
minute
Physical Exam
General: Other (Patient responsive, following commands, squeezing fingers, wiggling toes, nodding head, breathing on 2 L of oxygen)
HEENT: Normocephalic and Anicteric
Cardiovascular: S1-S2, Irregular Rhythm, Peripheral Edema (+1 lower extremity edema bilaterally, With bilateral mottling of legs) and Other (Tachycardic, goal is to keep heart rate below 110)
Respiratory: Clear and Other (No rhonchi wheezes or crackles)
GI: Soft, Distended (Abdominal obesity) and Normal Bowel Sounds
Neurology: Lethargic and Other (Following commands, hands and legs, more alert today)
Skin: Warm, Dry and Other (Legs appear mottled)
Labs/Micro/Reports
Lab Data
08/10/24 03:30
08/10/24 03:30
Microbiology
08/07/24 11:39 Blood/Venous Blood Culture - Preliminary
No Growth in 48 hours- Final report to follow
08/07/24 11:27 Blood/Venous Blood Culture - Preliminary
No Growth in 48 hours- Final report to follow
08/07/24 10:52 Sputum Respiratory Culture - Preliminary
NO GROWTH
08/07/24 10:52 Sputum Gram Stain - Preliminary
08/03/24 03:28 Blood/Venous Blood Culture - Final
No Growth - Final Report
08/03/24 03:41 Blood/Venous Blood Culture - Final
No Growth - Final Report
--- NOTE | 2024-08-10 10:34 | W.PN.HOSP.TC ---
Today's Communication/Plan
-
continue Abx per ID
HD per Nephrology
monitor sedation
TFs via DHT
oral beta blockers via tube per Cards, no OAC due to bleeding
Assessment / Plan
Assessment / Plan
Mr. Иван Redd is a 64-year-old man with a past medical history of recently diagnosed colorectal cancer, persistent atrial fibrillation, essential hypertension who presents to the ER with dizziness. Patient reports feeling unwell for the last
2 days. He was recently started on metoprolol and Eliquis for atrial fibrillation. Overnight admission patient developed acute respiratory failure in setting of high fever with finding MSSA in blood and sputum; development of renal failure
requiring CRRT.
Assessment:
Acute Respiratory Failure requiring intubation
MSSA Bacteremia and Pneumonia
Septic Shock
Acute Renal Failure with acute HFpEF (pulm edema)
Hyperkalemia
Lactic Acidosis
Non-Ischemic Myocardial Injury
-s/p intubation morning of 07/31 during rapid response; extubated 08/08 to BIPAP
-initial concern for flash pulmonary edema given acute SOB, CXR read and patient had been receiving IVF. IV lasix given without significant output and worsening renal function; renal consulted and patient initiated on CRRT on 08/01 given worsening
renal function, essentially no urine output and hyperkalemia. CRRT now stopped and now on HD via tunneled cath.
-08/01: culture results showing MSSA in Sputum and Blood
-TTE results above - no vegetation
-continue IV Unasyn, day 5 per ID
-off pressors
-off sedation
-Trop peaked at 0.749
-Room Service Supervisor Consult appreciated
-Cardiology consult appreciated
-Nephrology consult appreciated
Acute lower GI bleed (exacerbated by IV heparin)
Known history of colorectal Adenocarcinoma with possible lung mets
- s/p CTA without active bleeding source. No role for IR intervention. Source felt be related to known colon masses, although diverticular disease or AVMs possible.
- was previously Scheduled for lung biopsy as outpatient
- patient had not yet started chemotherapy
- GI following
Paroxysmal Atrial Fibrillation
- current in NSR
- off anticoagulation with active bleed episode; family aware of stroke risk
- continue Metoprolol q6h per Cardiology
TME from multifactorial
-critical illness, recent sedation
-monitor mentation
-CTH negative 08/08
-ST when able. on TFs via DHT.
Constipation
- bowel regimen prn
Essential Hypertension
- hold MEDICAL IMAGING TECH Olmesartan-HCTZ
- continue Metoprolol
Hyperlipidemia
- hold rosuvastatin
acute Thrombocytopenia
- await HIT panel
- platelet carissa 48
DVT ppx: SCDs
Code: Full
Total Critical Care Time 42 minutes. I was immediately available to the patient and staff. I personally examined, reviewed labs, diagnostic images/reports, interpretations, treatment plans, discussed patient care with other providers and family
or caregivers (if patient is unable to make decisions), entered orders as appropriate and documented the medical record.
Dispo: tx to IMU
Anticipated Discharge: > 48 hours
Subjective/Interval History
-
Date of Service: August 10, 2024
slightly more alert today
tolerated HD yesterday
Objective Data
-
Labs:
Laboratory Results
08/10/24 08/10/24
03:30 08:57
WBC 8.8
Hgb 8.3 L
Hct 26.5 L
Plt Count 54 L
HCO3 Pending
Sodium 138
Potassium 3.7
Chloride 103
Carbon Dioxide 25
BUN 44 H
Creatinine 3.2 H
Glucose 109 H
Calcium 7.8 L
Total Bilirubin 5.3 H
AST 450 H
ALT 93 H
Alkaline Phosphatase 375 H
Vital Signs:
Vital Signs
Temp Pulse Resp BP Pulse Ox
98.7 F 102 30 128/45 100
08/10/24 08:00 08/10/24 08:00 08/10/24 08:00 08/10/24 08:00 08/10/24 08:00
I&O
08/09/24 08/10/24 08/11/24
06:59 06:59 06:59
Intake Total 524.4 / 524.4 850 / 915 195 / 195
Output Total 185 / 185 110 / 110
Balance 339.4 / 339.4 740 / 805 195
Physical Exam
-
General: No Apparent Distress
HEENT: Normocephalic and Atraumatic
Respiratory: Negative Wheezes
Cardiac: Regular Rhythm
GI: Soft
Genito-urinary: No Costovertebral Tender
Neuro: AO x 3
Hematologic / Lymphatic: No Lymphadenopathy
Psych: Calm
Data Reviewed
-
Critical Care Time (in minutes): 42
[2024-08-10 11:18] LABS: Glucose - Point of Care 128 mg/dl (70-99)
--- NOTE | 2024-08-10 11:39 | W.PN.NEPH.PH ---
Today's Communication / Plan
-
HD tomorrow
Assessment/Plan
-
64-year-old man with recently diagnosed colorectal cancer with possible lung metastasis and recent diagnosis of atrial fibrillation who presented with lightheadedness and dizziness after starting oral metoprolol as an outpatient and presented to
[place] emergency department. He presented in acute kidney injury admitted to the floors upgraded to the ICU for increased work of breathing ultimately intubated in the ICU with hyperkalemia.
Patient is critically ill on pressor support essentially anuric.
Positive blood cultures pending organism. Staph aureus sputum culture.
Renal consult for acute kidney injury and hyperkalemia
Impression.
Acute kidney injury and hyperkalemia secondary to septic shock.
Colorectal cancer newly diagnosed June 2024 with possible lung metastasis
Atrial fibrillation on oral anticoagulation
VDRF
Bacteremia/sepsis
Plan.
Now converted to IHD, tolerated well, HD tomorrow
changed to tunneled catheter 08/09, some bleeding seem to be controlled now
Wt is down and on 4lit of O2
Bp stable off pressors
follow hgb, transfuse as needed
d/w nursing and family
-
-
Date of Service: August 10, 2024
CC / HPI / ROS
-
Chief Complaint:
Septic shock
History of Present Illness:
on 4lit of O2
Off CRRT, tolerated HD on 08/09
K controlled
LFTs improving
Anuric
Hemoglobin lower at 8.3
Review of Systems:.
sleeping during visit
tolerating DHT feeds
no fever
Labs
-
Labs:
WBC 8.8 10^3/uL (4.8-10.8) 08/10/24 03:30
RBC 3.06 10^6/uL (4.70-6.10) L 08/10/24 03:30
Hgb 8.3 g/dL (13.0-18.0) L 08/10/24 03:30
Hct 26.5 % (39.0-52.0) L 08/10/24 03:30
Plt Count 54 10^3/uL (130-400) L 08/10/24 03:30
Sodium 138 mmol/L (135-145) 08/10/24 03:30
Potassium 3.7 mmol/L (3.5-5.1) 08/10/24 03:30
Chloride 103 mmol/L (98-107) 08/10/24 03:30
Carbon Dioxide 25 mmol/L (22-30) 08/10/24 03:30
BUN 44 mg/dl (9-20) H 08/10/24 03:30
Creatinine 3.2 mg/dL (0.7-1.3) H 08/10/24 03:30
eGFR 21.07 08/10/24 03:30
Glucose 109 mg/dl (70-99) H 08/10/24 03:30
Calcium 7.8 mg/dl (8.4-10.2) L 08/10/24 03:30
Phosphorus 4.5 mg/dl (2.5-4.5) 08/08/24 08:31
Vvc-P-Nuxinyntwze Pept 2850 pg/ml 08/06/24 03:26
Albumin 2.5 g/dl (3.5-5.0) L 08/10/24 03:30
Physical Exam
-
Vital Signs:
Vital Signs
Temp Pulse Resp BP Pulse Ox
98.7 F 110 31 129/41 100
08/10/24 08:00 08/10/24 11:00 08/10/24 11:00 08/10/24 11:00 08/10/24 11:00
Cardiovascular:: Regular rate and rhythm (tachy)
Respiratory:: Bilateral: Coarse
Lung Excursion:: Normal
Abdomen:: Nontender and Soft
Extremity Edema:: +1: Bilateral: (trace)
Alvarez Catheter: No
--- NOTE | 2024-08-10 11:52 | PTCARENOTE ---
pt more alert, remains disoriented. reorientation provided, at bedside verbalized understanding to plan of care. oral care and turning/repositioning provided. no further changes in assessment, downgraded to imu.
[2024-08-10] MEDS: LOPRESSOR 50 MG TUBE (12:12)
--- NOTE | 2024-08-10 13:16 | CM ---
CM following re: discharge planning.
Discussed in rounds, reviewed pt's chart, met with pt and family at bedside.
Per Rounds meeting, pt drowsy, arouses to verbal and tactile, follow simple commands, requires 2L NC of O2, Bi-pap at night, continue tube feeds, continue supportive care.
PT and OT will evaluate the pt when clinically appropriate to determine a level of care at discharge.
Per fish agent, pt will need air mattress upon the discharge to SNF.
D/C plan: uncertain at this time and will depend on pt's progress.
CM will follow with discharge plan updates as hospitalization progresses
--- NOTE | 2024-08-10 14:20 | PTCARENOTE ---
pt pulled out dobhoff, Dr. Jackson aware, speech therapy consult placed. hold on reinserting dobhoff at this time. pt and ot at bedside.
--- NOTE | 2024-08-10 15:35 | PTOTSP ---
Speech Language Pathology
Pt seen for clinical bedside swallow evaluation. Pt very drowsy with intermittent eye opening. Mostly unintelligible speech with aphonic vocal quality. P.O. trials of puree, ice chips, and thin liquids provided. Adequate mastication of ice chip.
No oral difficulty with limited consistencies trialed. Brief cough post ice chips. Multiple swallows per bolus with puree, unsure if related to piecemeal deglutition or pharyngeal residue.
Pt is at a high risk for aspiration given recent extubation after extended intubation with aphonic vocal quality, decreased mentation, and drowsiness.
Recommend:
(1) NPO
(2) Oral care 4x/day with suctioning as needed
(3) Allow ice chips and sips of water sparingly post oral care when awake given supervision per Aspiration Risk Hydration Protocol (ARHP)
(4) Allow necessary meds crushed in puree when awake as tolerated. Otherwise, meds via IV as able
(5) INSPECTOR HAND[employer] FRAMES to continue to follow
[2024-08-10] MEDS: LOPRESSOR TUBE (17:32)
[2024-08-10 17:46] LABS: Glucose - Point of Care 108 mg/dl (70-99)
--- NOTE | 2024-08-10 18:18 | PTCARENOTE ---
pt more alert throughout shift, able to make some needs known, was able to identify this afternoon. still disoriented to place and time. see speech therapy's note for further details.
[2024-08-10] MEDS: OFIRMEV 100 IV (18:43)
--- NOTE | 2024-08-10 19:14 | PTCARENOTE ---
Assumed care of pt. approx 1900.
Pt. maintaining own airway on 2L, slightly confused but follows simple commands.
See assessment flowsheet for further details.
Plan of care explained to bedside, All questions answered.
[2024-08-11] VITALS (34 sets, daily range): BP systolic 117–166; BP diastolic 39–65; PULSE 2–100; BMI 38.6
[2024-08-11 00:02] LABS: Glucose - Point of Care 129 mg/dl (70-99)
[2024-08-11] MEDS: NOVOLOG FLEXPEN-MODERATE RESISTANCE SC ×4 (00:11→18:25)
[2024-08-11] MEDS: LOPRESSOR 2.5 MG IV (00:35)
[2024-08-11] MEDS: LOPRESSOR TUBE ×2 (00:35→06:05)
[2024-08-11 04:06] LABS: % Basophils 0.4 % (0-2); % Eosinophils 0.4 % (0-6); % Immature Granulocytes 0.8 % (0-0.5); % Monocytes 7.1 % (1.7-9.3); % Neutrophils 83.3 % (42.2-75.2); Absolute Immature Granulocytes 0.1 10^3/uL (0-0.05); Absolute Lymphocytes 0.9 10^3/uL (1.2-3.4); Absolute Monocytes 0.8 10^3/uL (0.1-0.6); Absolute Neutrophils 8.9 10^3/uL (1.4-6.5); Hematocrit 26.3 % (39.0-52.0); Hemoglobin 8.6 g/dL (13.0-18.0); Mean Corp Hgb Conc. 32.7 g/dL (33.0-37.0); Mean Corpuscular Volume 85.7 fL (80.0-94.0); Mean Platelet Volume 12.1 fL (7.4-10.4); Nucleated Red Blood Cells % 0 % (-); Platelet Count 65 10^3/uL (130-400); Red Blood Cell Count 3.07 10^6/uL (4.70-6.10); White Blood Cell Count 10.6 10^3/uL (4.8-10.8)
[2024-08-11 04:16] LABS: B.E. -3.5 mmol/L; HCO3 21.4 mmol/L (21-28); O2 Saturation % 98.9 % (94-98); PCO2 37 mmHg (35-48); PO2 101 mmHg (83-108); pH 7.37 (7.35-7.45)
[2024-08-11 05:12] LABS: ALT (SGPT) 93 U/L (0-50); AST (SGOT) 319 U/L (17-59); Albumin 2.8 g/dl (3.5-5.0); Alkaline Phosphatase 347 U/L (38-126); Blood Urea Nitrogen 67 mg/dl (9-20); Calcium 7.6 mg/dl (8.4-10.2); Carbon Dioxide 20 mmol/L (22-30); Chloride 104 mmol/L (98-107); Estimated Creatinine Clearance 21 ml/min; Glucose 127 mg/dl (70-99); Potassium 3.8 mmol/L (3.5-5.1); Sodium 138 mmol/L (135-145); Total Protein 6.5 g/dl (6.3-8.2); eGFR 12.64
[2024-08-11] MEDS: UNASYN IV ×2 (06:00→18:25)
[2024-08-11 06:15] LABS: Glucose - Point of Care 103 mg/dl (70-99)
--- NOTE | 2024-08-11 07:08 | W.PN.INTV ---
Today's Communication / Plan
Recommendations
Incentive spirometry
Speech and swallow ongoing evaluation
Hopefully can administer meds with assistance
Patient pulled Dobbhoff tube
Platelets stabilized, HIT panel negative
Aspiration precautions
Antibiotics per ID
Continue BiPAP
Assessment
-
Impression
Patient is a 64-year-old male, recently diagnosed with colorectal carcinoma and the disease is presumably advanced, had a lung nodule that was supposed to be biopsied but patient ended up in the ER for dizziness secondary to recent atrial
fibrillation. As his workup was being done in the ER for CHRISS and anemia along with dizziness, patient decompensated, had acute respiratory failure, nonresponsive to nonrebreather mask and noninvasive ventilation, ended up in ICU, rapid response was
called, had to be intubated.
Currently patient is critically ill, has multiorgan failure, including acute respiratory failure, acute renal insufficiency, hypoxic liver, and recently had bloody bowel movements.
Heparin infusion held secondary to the GI bleed. Colorectal surgery evaluated the patient and recommended CTA, which came back negative for any active bleed,GI signed off as no further bleeding.
Currently patient is off sedation, off vasopressors, extubated, on BiPAP, breathing on 2 L of oxygen, on tube feeds, PICC line ,midline in place
Assessment:
# Atrial fibrillation with rapid ventricular response
# Change in mental status
#Acute rectal bleeding in the setting of colorectal carcinoma/heparin infusion
#Acute respiratory failure
#CHRISS now on CRRT
#Streptococcal bacteremia
#Acute HFpEF exacerbation
#Metabolic acidosis with increased anion gap due to severe CHRISS and lactic acidosis
#Transaminitis secondary to hypoxic liver
Plan:
# Atrial fibrillation with rapid ventricular response
Patient has history of paroxysmal atrial fibrillation, heart rate ranged up to 130s yesterday, overall heart rate seems to be improved
Started on Lopressor, 50 mg every 6 hours via tube-in addition as needed doses through IV to keep heart rate below 110
Not on anticoagulation at this time-due to recent GI bleed and low platelet counts
HIT panel negative
Cardiology following-recommendations appreciated
# Change in mental status
On 08/08, patient's mental status was altered in terms of responsiveness, CT scan of head was repeated, within normal limits
On 08/09, patient is agitated/no purposeful movements, platelet counts dropping, history of rectal bleed-ammonia levels checked-less than 9
Seems to be better today on 08/11, moving all extremities
Continue neurochecks
#Acute rectal bleeding in the setting of colorectal carcinoma/heparin infusion
Patient had bloody bowel movements on 08/06/2024 with roughly 1 L of blood loss
Colorectal surgery consult apprec-CTA negative
Hemoglobin remained stable around 8, no further bleed, GI signed off
Platelet counts continue to drop-HIT panel negative
Follow hemoglobin, transfuse if needed
#Acute respiratory failure
Patient was on mechanical ventilation since 07/31/2024
Extubated on 08/08/2024
On BiPAP, IPAP 10, EPAP 5, set rate 12, continue overnight, intermittently during day
ABG 7.37/37/101
Continue with BiPAP nightly
Chest x-ray 08/11/2024 with improved aeration bilaterally
Incentive spirometry, out of bed to chair as able
#CHRISS now on CRRT
Patient has had worsening renal creatinine function --->placed on CRRT on August 01, 2024-tunneled catheter placed yesterday
Nephro consult appreciated-on intermittent hemodialysis, Alvarez catheter out
Continue to trend urine output, serum creatinine, lactic acid, and bicarb
Serum Cr 3.2,HCO3 is 25
HD per nephrology
#Streptococcal bacteremia
Patient remains critically ill
ID consult apprec--Antibiotic switched to unasyn by ID(DAY-6)
Echo repeated on 08/07/2024-There is no evidence of vegetation or embolic source seen.
Blood cultures in progress, no growth to date from blood cultures sent on 08/03/2024-patient off vasopressors
New splenic infarct concerning-no growth on blood culture or sputum culture in last 24 hours
Cultures negative to date
#Acute HFpEF exacerbation secodary to A-fib with RVR/Acute diastolic CHF
Patient presented with rapid development of pulmonary edema
Updated echo(08/04/2024)-normal biventricular function with normal ejection fraction
Cardio consult appreciated-suggest heart failure with preserved ejection fraction given the recent pulmonary edema
Cause of pulmonary edema could be the rapid A-fib
Chest x-ray 08/11 improved
#Metabolic acidosis with increased anion gap due to severe CHRISS and lactic acidosis
Lactic acidosis resolved
On intermittent hemodialysis as per nephrology
#Transaminitis secondary to hypoxic liver
Patient had a shock liver response to hypoperfusion secondary to septic shock/cardiogenic shock
AST was greater than 7500 and ALT was greater than 4000
Limit Tylenol to less than 2 g daily to avoid liver damage
LFTs improved
Family is aware of the patient's critical condition
#Other Medical conditions
#Metastatic colorectal cancer with suspected lung metastasis (diagnosed via colonoscopy on 06/22/2024 with partially obstructing tumor seen in the rectum 4 cm from the anal verge, invasive low-grade colorectal adenocarcinoma)
#PET avid 2.2 cm right upper lobe nodule originally planned for robotic bronchoscopy on 08/03/2024 (will be deferred for now)
#HAN on auto CPAP
#History of psoriasis previously on Enbrel
#History of hepatitis A
#History of COVID-19 (04/03)
#Restrictive lung disease (suspected based on spirometry from 05/15/2021, however patient was coughing during testing and post-bronchodilator FVC was WNL at 84% predicted
CODE status-currently full code
DVT prophylaxis-Sequential compression devices
Subjective Dataa
Subjective Data
Date of Service:
Date of Service: August 11, 2024
Chief Complaint: Electrical Supervisor Follow Up, Pulmonary Follow Up and Vent Management Follow Up
Subjective:
Patient appears to be more interactive, answering questions, following commands. He has a weak voice, hoarse voice. Denies chest pain, abdominal pain, nausea. Asking for water
Objective Data
Data Reviewed
Vital Signs / I&O / Oxygen:
Vital Signs
Temp Pulse Resp BP Pulse Ox
97.6 F 110 21 148/65 98
08/11/24 03:35 08/11/24 06:00 08/11/24 06:00 08/11/24 06:00 08/11/24 06:05
Intake and Output
08/10/24 08/11/24 08/12/24
06:59 06:59 06:59
Intake Total 850 / 915 550 / 550
Output Total 110 / 110 0 / 0
Balance 740 / 805 550 / 550
SaO2 [CPAP] 100
SaO2 [A/C] 99
SaO2 98
Nasal Cannula flow liters per 2
minute
Physical Exam
General: Comfortable and Other (Patient responsive, following commands, squeezing fingers, wiggling toes, nodding head, breathing on 2 L of oxygen, moving extremities)
HEENT: Normocephalic and Anicteric
Cardiovascular: S1-S2, Irregular Rhythm, Murmur (n), Rub (n) and Peripheral Edema (+1 lower extremity edema bilaterally, right anterior chest HD catheter, right upper extremity PICC, left upper extremity midline)
Respiratory: Clear, Wheeze (n), Crackles (n), Rhonchi (n) and Other (Decreased at base)
GI: Soft, Distended (Abdominal obesity) and Normal Bowel Sounds
Neurology: Awake, Alert, No Motor Deficits (Moving all extremities) and Other (Following commands, hands and legs, more alert today)
Skin: Warm, Dry, Rash (n), Bruising (n) and Other (Legs appear mottled)
Labs/Micro/Reports
Lab Data
08/11/24 03:42
08/11/24 03:42
Laboratory Results
08/10/24 08/11/24
08:57 04:07
pH Cancelled 7.37
pCO2 Cancelled 37
pO2 Cancelled 101
HCO3 Cancelled 21.4
O2 Delivery Level Cancelled
Microbiology
08/07/24 10:52 Sputum Respiratory Culture - Final
NO GROWTH
08/07/24 10:52 Sputum Gram Stain - Final
08/07/24 11:39 Blood/Venous Blood Culture - Preliminary
No Growth in 72 hours- Final report to follow
08/07/24 11:27 Blood/Venous Blood Culture - Preliminary
No Growth in 72 hours- Final report to follow
08/03/24 03:28 Blood/Venous Blood Culture - Final
No Growth - Final Report
08/03/24 03:41 Blood/Venous Blood Culture - Final
No Growth - Final Report
[2024-08-11] MEDS: PROTONIX IV 40 MG IV (08:35)
[2024-08-11] MEDS: NSS (PRESERVATIVE FREE) 10 ML IV (08:35)
--- NOTE | 2024-08-11 08:39 | PTCARENOTE ---
0700 pt in bed, denies pain and discomfort. slow speech, awake. BP 152/59 MAP 86; Afib 115; BP 152/59 RR 30 4L 96% Dialysis in progress
[2024-08-11] MEDS: FLEXBUMIN 25% FOR HEMODIALYSIS 12.5 GRAMS IV ×2 (09:10→10:07)
[2024-08-11] MEDS: RETACRIT 10000 UNITS IV (09:11)
[2024-08-11] MEDS: MANNITOL 25% 12.5 GRAMS IV ×2 (09:12→10:08)
--- NOTE | 2024-08-11 10:09 | W.PN.ID1 ---
Date of Service
Date of Service: August 11, 2024
Today's Communication
- c/w unasyn day 6 tentatively of 7, dosed for HD
Assessment / Plan
S aureus (MSSA) Pneumonia
Resolved shock - resolved
Strep salivarius bacteremia x 2 sets drawn at the same time - most likely contaminant
CHRISS on HD
Class III Obesity
Colorectal Adenocarcinoma - not yet on treatment
Psoriatic Arthritis - currently off of Enbrel since ~05/03
- follow thrombocytopenia - improved
- new splenic infarction seen on CTA 08/06 - embolic vs thrombotic
- repeat blood cultures x2 no growth to date
- 08/07 TTE - normal EF, no vegetation or embolic source seen
- would still consider S salivarius most likely contaminant
- 08/07 sputum culture: few mixed morphotypes; negative
- 07/31 sputum: MSSA
- c/w unasyn day 6 tentatively of 7, dosed for HD
- follow clinically
Chief Complaint
-: Pneumonia (S aureus), Bacteremia (streptococcus) and Other (shock)
Subjective / Review of Systems
mild hypothermia this am
remains off of pressors
HD today
some confusion, but following simple commands
Vital Signs / Physical Exam
Vital Signs
Vital Signs
Temp Pulse Resp BP Pulse Ox
96.5 F L 110 21 148/65 98
08/11/24 07:27 08/11/24 06:00 08/11/24 06:00 08/11/24 06:00 08/11/24 06:05
Physical Exam
Constitutional: No Acute Distress and Chronically Ill
Cardiovascular: Regular Rate and S1/S2; Negative Murmur or Rub
Pulmonary: Clear and Symmetric; Negative Wheezes or Rales
Gastrointestinal: Soft, Non Tender, Non Distended and Normal Bowel Sounds
Skin: Warm and Dry; Negative Rash or Jaundice
Lines: Other (no erythema warmth or tenderness over midline, picc line or HD cath)
Objective Data
Lab Data
Lab Results
08/11/24 03:42
08/11/24 03:42
PT 19.5 Sec (11.4-14.6) H 08/07/24 11:27
INR 1.62 08/07/24 11:27
APTT 54.9 Sec (23.4-35.0) H 08/07/24 11:27
Estimated Creat Clear 21 ml/min 08/11/24 03:42
Lactic Acid 1.7 mmol/L (0.7-2.0) 08/06/24 03:26
Total Bilirubin 5.0 mg/dl (0.2-1.3) H 08/11/24 03:42
AST 319 U/L (17-59) H 08/11/24 03:42
ALT 93 U/L (0-50) H 08/11/24 03:42
Alkaline Phosphatase 347 U/L (38-126) H 08/11/24 03:42
Most recent labs reviewed.
Micro Results:
08/07/24 10:52 Respiratory Culture - Final
Sputum NO GROWTH
Gram Stain - Final
08/07/24 11:39 Blood Culture - Preliminary
Blood/Venous No Growth in 72 hours- Final report to follow
08/07/24 11:27 Blood Culture - Preliminary
Blood/Venous No Growth in 72 hours- Final report to follow
08/03/24 03:28 Blood Culture - Final
Blood/Venous No Growth - Final Report
08/03/24 03:41 Blood Culture - Final
Blood/Venous No Growth - Final Report
08/01/24 18:19 Blood Culture - Final
Blood/Venous No Growth - Final Report
08/01/24 15:36 Blood Culture - Final
Blood/Venous No Growth - Final Report
07/31/24 12:18 Respiratory Culture - Final
Endotracheal S aureus-Methicillin Sensitive
Gram Stain - Final
07/31/24 07:54 Blood Culture - Final
Blood/Venous Streptococcus salivarius
Gram Stain - Final
07/31/24 07:54 Blood Culture - Final
Blood/Venous Streptococcus salivarius
Gram Stain - Final
07/31/24 11:49 Legionella Urinary Antigen - Final
Urine Negative for Legionella pneumophila Serogroup 1 antigen.
A negative result does not rule out the possiblity of
Legionella infection due to other serogroups or species of
Legionella. Clinical correlation is recommended.
Streptococcus pneumoniae Antigen (M - Final
Negative for Streptococcus pneumoniae antigen.
A negative result does not exclude infection with
Streptococcus pneumoniae. Clinical correlation is
recommended.
07/31/24 12:18 Nasal Screen MRSA (PCR) - Final
Nose MRSA not detected - performed by PCR methodology.
07/31/24 08:10 Influenza Types A & B (KHANG) - Final
Nasal Swab Negative for Influenza A & B, NAAT
Negative results must be combined with clinical observations
and patient history.
Nucleic Acid Amplification test (NAAT)performed on the
[employer] platform.
08/04/24 CXR: Moderate pulmonary edema, without significant change.
--- NOTE | 2024-08-11 11:12 | W.PN.CARDCBS ---
Today's Communication / Plan
-
I have changed Lopressor to oral dosing (allowable by speech/swallowing evaluation)
Continue as needed intravenous Lopressor in addition.
Rate control of atrial fibrillation
Currently not an anticoagulation candidate
Impression / Plan
-
Primary Pulp Screen Operator: Dr. Hiren Vicente
Impression:
MSOF (resp failure, CHF, liver failure, renal failure)
Recent diagnosis paroxysmal atrial fibrillation with recurrent AFib with RVR
GI bleeding
Hypotension previously requiring pressors
CHRISS (likely as a consequence of hypotension, possibly from septic shock versus cardiogenic shock or combination of both)
Acute hypoxic respiratory failure requiring intubation 07/31/24
Liver failure (likely as a consequence of hypotension, possibly from septic shock versus cardiogenic shock or combination of both)
Fever
Sepsis, s aureus PNA, possible S aureus bacteremia
Acute diastolic CHF
Colorectal cancer, suspected metastatic, diagnosed 06/22/2024, not yet started on therapy
Pulmonary nodule with concern for metastasis, scheduled for lung biopsy 08/03
Hypertension
Hyperlipidemia
Obstructive sleep apnea
Obesity
Edema
ECHO 07/31/24: Normal LV function. LVEF is 55-60%. No wall motion abnormality. Top normal right ventricular size with normal RV function. Mild AI and mild TR. Estimated pulmonary artery pressure of 38 mmHg
Plan:
Presented MSOF (resp failure, CHF, liver failure, renal failure), shock, sepsis, lactic acidosis, but is recovering
Remains extubated and mental status a little clearer today. Currently undergoing dialysis.
Blood pressure is acceptable.
Continue supportive care. Continue antibiotics per infectious disease.
Rhythm has been atrial fibrillation. Increased HR noted at at times but overall between around 110 to 115 bpm.
He had removed his Dobbhoff tube. I have changed Lopressor to oral dosing (allowable by speech/swallowing evaluation)
Continue as needed intravenous Lopressor in addition.
Heparin has been discontinued due to anemia. At this time not an anticoagulation candidate.
Nephrology managing volume with dialysis.
Hold statin with elevated LFTs. LFTs slowly improving.
Discussed with patient's at the bedside.
HPI:
64-year-old man with recently diagnosed colorectal cancer with possible lung metastasis and recent diagnosis of atrial fibrillation who presented with lightheadedness and dizziness after starting oral metoprolol as an outpatient and presented to
[place] emergency department for further management. After being found to have CHRISS and anemia he was admitted for further management. Unfortunately developed increased work of breathing this morning, became tachycardic and was found to be
febrile. Did not clinically improve with BiPAP and he was subsequently intubated and transferred to the medical ICU for further management. Currently being treated with broad-spectrum antibiotics and requiring pressor support.
Seen in the outpatient cardiology office 07/26/24 and was in AF with a rapid ventricular rate of 130 bpm. At that visit he had yet to initiate Toprol-XL which was ordered by his primary care physician. At that office visit he agreed to initiate
Toprol-XL 25 mg daily for rate control with plan to defer recommendations regarding rhythm control until he was adequately anticoagulated (atrial fibrillation of unknown duration) and to allow for intermittent interruption of anticoagulation for
planned upcoming procedures regarding his recently diagnosed colorectal cancer with likely pulmonary metastases (bronchoscopy, port placement, colorectal surgery). Eliquis 5 mg twice daily was also initiated on 07/26/24..
Cardiology is consulted for possible heart failure as a cause of his respiratory decompensation. proBNP was mildly elevated (3210), it is possible there is some component of heart failure with preserved ejection fraction.
On presentation to the emergency department 07/30/24, he was in atrial fibrillation with reasonably controlled ventricular rate of 105 bpm. EKG of July 31, 2024 finds sinus rhythm at 77 bpm.
Progress Note - Pulp Screen Operator
Subjective
Date of Service: August 11, 2024
He nods his head to some questions today. He has no chest pain or palpitations
Objective
Labs:
08/11/24 03:42
08/11/24 03:42
Labs
Hgb 8.6 g/dL (13.0-18.0) L 08/11/24 03:42
Hct 26.3 % (39.0-52.0) L 08/11/24 03:42
Plt Count 65 10^3/uL (130-400) L D 08/11/24 03:42
PT 19.5 Sec (11.4-14.6) H 08/07/24 11:27
INR 1.62 08/07/24 11:27
APTT 54.9 Sec (23.4-35.0) H 08/07/24 11:27
Sodium 138 mmol/L (135-145) 08/11/24 03:42
Potassium 3.8 mmol/L (3.5-5.1) 08/11/24 03:42
BUN 67 mg/dl (9-20) H 08/11/24 03:42
Creatinine 4.9 mg/dL (0.7-1.3) H* 08/11/24 03:42
Glucose 127 mg/dl (70-99) H 08/11/24 03:42
Vital Signs and I&O:
Vital Signs
Temp Pulse Resp BP Pulse Ox
96.5 F L 110 21 148/65 98
08/11/24 07:27 08/11/24 06:00 08/11/24 06:00 08/11/24 06:00 08/11/24 06:05
Vital Signs
Temp Pulse Resp BP Pulse Ox
96.5 F L 110 21 148/65 98
08/11/24 07:27 08/11/24 06:00 08/11/24 06:00 08/11/24 06:00 08/11/24 06:05
Intake & Output
08/09/24 08/10/24 08/11/24 08/12/24
06:59 06:59 06:59 06:59
Intake Total 524.4 / 524.4 850 / 915 550 / 550
Output Total 185 / 185 110 / 110 0 / 0
Balance 339.4 / 339.4 740 / 805 550 / 550
Physical Exam
Physical Exam
General: Ill-appearing man undergoing dialysis
Heart: Distant heart sounds irregular.
Lungs: Coarse anterior breath sounds
Extremities: Legs in boots
Neuro: Awake and answers questions
Right chest dialysis catheter in place
--- NOTE | 2024-08-11 11:41 | W.PN.NEPH.HD ---
Assessment
-
pt seen during HD
vitals stable
limited UF as he is NPO , pulled DHT
no heparin, high dose MARIJA for anemia
CVC functions well
d/w family and nursing
Progress Note - Hemodialysis
-
Date of Service: August 11, 2024
Duration: 30 minutes and 3 hours
Potassium Bath: 3
Calcium Bath: 2.5
Opti-Dialyzer: 160
Ultrafiltration: Other (1.5-2)
Blood Flow: 400
Dialysate Flow: 600
Heparin: no
EPO: [id number]
--- NOTE | 2024-08-11 12:11 | W.PN.HOSP.TC ---
Today's Communication/Plan
-
IS
PT/OT/ST evals
continue Abx per ID
HD per Neprhology
continue IMU status
Assessment / Plan
Assessment / Plan
Mr. Иван Redd is a 64-year-old man with a past medical history of recently diagnosed colorectal cancer, persistent atrial fibrillation, essential hypertension who presents to the ER with dizziness. Patient reports feeling unwell for the last
2 days. He was recently started on metoprolol and Eliquis for atrial fibrillation. Overnight admission patient developed acute respiratory failure in setting of high fever with finding MSSA in blood and sputum; development of renal failure
requiring CRRT.
Assessment:
Acute Respiratory Failure requiring intubation
MSSA Bacteremia and Pneumonia
Septic Shock
Acute Renal Failure with acute HFpEF (pulm edema)
Hyperkalemia
Lactic Acidosis
Non-Ischemic Myocardial Injury
-s/p intubation morning of 07/31 during rapid response; extubated 08/08 to BIPAP (not BIPAP is nocturnal). Also on 4L NC.
-initial concern for flash pulmonary edema given acute SOB, CXR read and patient had been receiving IVF. IV lasix given without significant output and worsening renal function; renal consulted and patient initiated on CRRT on 08/01 given worsening
renal function, essentially no urine output and hyperkalemia. CRRT now stopped and now on HD via tunneled cath.
-08/01: culture results showing MSSA in Sputum and Blood
-TTE results above - no vegetation
-continue IV Unasyn, day 6/7 per ID
-off pressors
-off sedation
-Trop peaked at 0.749
-Cinema Or Theatre Manager Consult appreciated
-Cardiology consult appreciated
-Nephrology consult appreciated
Acute lower GI bleed (exacerbated by IV heparin)
Known history of colorectal Adenocarcinoma with possible lung mets
- s/p CTA without active bleeding source. No role for IR intervention. Source felt be related to known colon masses, although diverticular disease or AVMs possible.
- was previously Scheduled for lung biopsy as outpatient
- patient had not yet started chemotherapy
- GI following
Paroxysmal Atrial Fibrillation
- current in NSR
- off anticoagulation with active bleed episode; family aware of stroke risk
- continue Metoprolol per Cardiology
TME from multifactorial
-critical illness, recent sedation
-monitor mentation
-CTH negative 08/08
-ongoing ST evals. pulled DHT 08/10 - will defer replacement for now.
Constipation
- bowel regimen prn
Essential Hypertension
- hold FIELD MARKETING ASSOCIATE Olmesartan-HCTZ
- continue Metoprolol
Hyperlipidemia
- hold rosuvastatin
acute Thrombocytopenia
- HIT panel negative
- platelet carissa 48
sacral/buttocks DTI, skin purple (blanchable and non blanchable).
- new in hospital
- fecal management system placed
- wound care service following
DVT ppx: SCDs
Code: Full
Anticipated Discharge: > 48 hours
Subjective/Interval History
-
Date of Service: August 11, 2024
slightly more alert, talkative today
pulled DHT yesterday
tolerated HD today
Objective Data
-
Labs:
Laboratory Results
08/11/24 08/11/24
03:42 04:07
WBC 10.6
Hgb 8.6 L
Hct 26.3 L
Plt Count 65 L D
HCO3 21.4
Sodium 138
Potassium 3.8
Chloride 104
Carbon Dioxide 20 L
BUN 67 H
Creatinine 4.9 H*
Glucose 127 H
Calcium 7.6 L
Total Bilirubin 5.0 H
AST 319 H
ALT 93 H
Alkaline Phosphatase 347 H
Vital Signs:
Vital Signs
Temp Pulse Resp BP Pulse Ox
96.5 F L 110 21 148/65 98
08/11/24 07:27 08/11/24 06:00 08/11/24 06:00 08/11/24 06:00 08/11/24 06:05
I&O
08/10/24 08/11/24 08/12/24
06:59 06:59 06:59
Intake Total 850 / 915 550 / 550
Output Total 110 / 110 0 / 0
Balance 740 / 805 550 / 550
Physical Exam
-
General: Morbidly Obese
HEENT: Normocephalic and Atraumatic
Respiratory: Clear to Auscultation; Negative Wheezes
Cardiac: Regular Rhythm and S1/S2
GI: Soft and Nontender
Musculoskeletal: No Edema
Neuro: AO x 3
Hematologic / Lymphatic: No Lymphadenopathy
Psych: Calm
Data Reviewed
-
Total Time Spent with Patient (in minutes): 44
Labs: Labs Reviewed by me
[2024-08-11 12:19] LABS: Glucose - Point of Care 94 mg/dl (70-99)
[2024-08-11] MEDS: LOPRESSOR 50 MG PO ×2 (13:37→18:24)
[2024-08-11 18:23] LABS: Glucose - Point of Care 113 mg/dl (70-99)
--- NOTE | 2024-08-11 18:54 | PTCARENOTE ---
patient in bed. Alert to himself. Disoriented of place and time. Afib 90's telemetry. BP stable. On 2 L via nasal canula /2L At this time pt on #. multiple loose stools . Unable to place FMS. PICC line RT upper arm dressing intact. RT chest
tunnel cath oozing blood . Dressing cleaned around. bed changed to SPORTS bed pt reposition Q 2 hrs. Sacrum unstable pressure ulcer HOB elevated call lubin within reach
--- NOTE | 2024-08-11 20:46 | PTCARENOTE ---
Assumed care of pt. approx 1900.
Confused, speaking in one word sentences, redirectable.
HD cath bleeding, dressing changed.
RA, Hemodynamically stable. Maintaining own airway.
[2024-08-12] VITALS (15 sets, daily range): BP systolic 106–139; BP diastolic 39–61; PULSE 3–99; BMI 38.5
[2024-08-12] MEDS: LOPRESSOR 50 MG PO ×2 (00:33→05:17)
[2024-08-12] MEDS: NOVOLOG FLEXPEN-MODERATE RESISTANCE SC ×5 (00:35→23:15)
[2024-08-12 00:44] LABS: Glucose - Point of Care 117 mg/dl (70-99)
[2024-08-12 04:33] LABS: ALT (SGPT) 87 U/L (0-50); AST (SGOT) 228 U/L (17-59); Albumin 2.9 g/dl (3.5-5.0); Alkaline Phosphatase 363 U/L (38-126); Blood Urea Nitrogen 61 mg/dl (9-20); Calcium 7.7 mg/dl (8.4-10.2); Carbon Dioxide 21 mmol/L (22-30); Chloride 104 mmol/L (98-107); Estimated Creatinine Clearance 22 ml/min; Glucose 113 mg/dl (70-99); Sodium 139 mmol/L (135-145); Total Bilirubin 4.9 mg/dl (0.2-1.3); Total Protein 6.1 g/dl (6.3-8.2); eGFR 12.95
[2024-08-12 04:53] LABS: % Basophils 0.7 % (0-2); % Eosinophils 0.4 % (0-6); % Immature Granulocytes 0.7 % (0-0.5); % Monocytes 9.8 % (1.7-9.3); % Neutrophils 76.4 % (42.2-75.2); Absolute Basophils 0.1 10^3/uL (0-0.2); Absolute Immature Granulocytes 0.1 10^3/uL (0-0.05); Absolute Lymphocytes 1.2 10^3/uL (1.2-3.4); Absolute Neutrophils 7.8 10^3/uL (1.4-6.5); Hematocrit 27.2 % (39.0-52.0); Hemoglobin 8.7 g/dL (13.0-18.0); Mean Corpuscular Hgb 27.6 pg (27.0-31.0); Mean Corpuscular Volume 86.3 fL (80.0-94.0); Mean Platelet Volume 11.8 fL (7.4-10.4); Nucleated Red Blood Cells % 0 % (-); Platelet Count 100 10^3/uL (130-400); Red Blood Cell Count 3.15 10^6/uL (4.70-6.10); Red Cell Dist. Width 21.2 % (11.5-14.5); White Blood Cell Count 10.2 10^3/uL (4.8-10.8)
[2024-08-12] MEDS: UNASYN IV ×2 (05:17→17:36)
[2024-08-12 05:32] LABS: Glucose - Point of Care 111 mg/dl (70-99)
--- NOTE | 2024-08-12 07:17 | W.PN.INTV ---
Today's Communication / Plan
Recommendations
PT/OT
Complete antibiotics per ID
Continue BiPAP at night. Some confusion overnight noted
Check ABG in a.m.
Rate control
HD
Assessment
-
Impression
Patient is a 64-year-old male, recently diagnosed with colorectal carcinoma and the disease is presumably advanced, had a lung nodule that was supposed to be biopsied but patient ended up in the ER for dizziness secondary to recent atrial
fibrillation. As his workup was being done in the ER for CHRISS and anemia along with dizziness, patient decompensated, had acute respiratory failure, nonresponsive to nonrebreather mask and noninvasive ventilation, ended up in ICU, rapid response was
called, had to be intubated.
Currently patient is critically ill, has multiorgan failure, including acute respiratory failure, acute renal insufficiency, hypoxic liver, and recently had bloody bowel movements.
Heparin infusion held secondary to the GI bleed. Colorectal surgery evaluated the patient and recommended CTA, which came back negative for any active bleed,GI signed off as no further bleeding.
Currently patient is off sedation, off vasopressors, extubated, on BiPAP, breathing on 2 L of oxygen, on tube feeds, PICC line ,midline in place
Assessment:
# Atrial fibrillation with rapid ventricular response
# Change in mental status
#Acute rectal bleeding in the setting of colorectal carcinoma/heparin infusion
#Acute respiratory failure
#CHRISS now on CRRT
#Streptococcal bacteremia
#Acute HFpEF exacerbation
#Metabolic acidosis with increased anion gap due to severe CHRISS and lactic acidosis
#Transaminitis secondary to hypoxic liver
Plan:
# Atrial fibrillation with rapid ventricular response
Patient has history of paroxysmal atrial fibrillation, heart rate ranged up to 130s yesterday, overall heart rate seems to be improved
Lopressor now increased to 75 mg every 6 hours via tube-in addition as needed doses through IV to keep heart rate below 110, cardiology following
Not on anticoagulation at this time-due to recent GI bleed and low platelet counts
HIT panel negative
Cardiology following-recommendations appreciated
# Change in mental status
On 08/08, patient's mental status was altered in terms of responsiveness, CT scan of head was repeated, within normal limits
On 08/09, patient is agitated/no purposeful movements, platelet counts dropping, history of rectal bleed-ammonia levels checked-less than 9
Seems to be better today on 08/11, moving all extremities
Continue neurochecks
ABG in the a.m.
#Acute rectal bleeding in the setting of colorectal carcinoma/heparin infusion
Patient had bloody bowel movements on 08/06/2024 with roughly 1 L of blood loss
Colorectal surgery consult apprec-CTA negative
Hemoglobin remained stable around 8, no further bleed, GI signed off
Platelet counts continue to drop-HIT panel negative
Follow hemoglobin, transfuse if needed
#Acute respiratory failure
Patient was on mechanical ventilation since 07/31/2024
Extubated on 08/08/2024
Continue with BiPAP nightly
Chest x-ray 08/11/2024 with improved aeration bilaterally
Incentive spirometry, out of bed to chair as able
ABG in a.m.
#CHRISS now on CRRT
Patient has had worsening renal creatinine function --->placed on CRRT on August 01, 2024-tunneled catheter placed yesterday
Nephro consult appreciated-on intermittent hemodialysis, Alvarez catheter out
HD per nephrology
#Streptococcal bacteremia
Patient remains critically ill
ID consult apprec--Antibiotic switched to unasyn by ID(DAY-6)
Echo repeated on 08/07/2024-There is no evidence of vegetation or embolic source seen.
Blood cultures in progress, no growth to date from blood cultures sent on 08/03/2024-patient off vasopressors
New splenic infarct concerning-no growth on blood culture or sputum culture in last 24 hours
Cultures negative to date
Loose stool noted. Stool studies pending
#Acute HFpEF exacerbation secodary to A-fib with RVR/Acute diastolic CHF
Patient presented with rapid development of pulmonary edema
Updated echo(08/04/2024)-normal biventricular function with normal ejection fraction
Cardio consult appreciated-suggest heart failure with preserved ejection fraction given the recent pulmonary edema
Chest x-ray 08/11 improved
Cardiology following
#Metabolic acidosis with increased anion gap due to severe CHRISS and lactic acidosis
Lactic acidosis resolved
On intermittent hemodialysis as per nephrology
ABG in a.m.
#Transaminitis secondary to hypoxic liver
Patient had a shock liver response to hypoperfusion secondary to septic shock/cardiogenic shock
AST was greater than 7500 and ALT was greater than 4000
Limit Tylenol to less than 2 g daily to avoid liver damage
LFTs improved
Family is aware of the patient's critical condition
#Other Medical conditions
#Metastatic colorectal cancer with suspected lung metastasis (diagnosed via colonoscopy on 06/22/2024 with partially obstructing tumor seen in the rectum 4 cm from the anal verge, invasive low-grade colorectal adenocarcinoma)
#PET avid 2.2 cm right upper lobe nodule originally planned for robotic bronchoscopy on 08/03/2024 (will be deferred for now)
#HAN on auto CPAP
#History of psoriasis previously on Enbrel
#History of hepatitis A
#History of COVID-19 (04/03)
#Restrictive lung disease (suspected based on spirometry from 05/15/2021, however patient was coughing during testing and post-bronchodilator FVC was WNL at 84% predicted
CODE status-currently full code
DVT prophylaxis-Sequential compression devices
Subjective Dataa
Subjective Data
Date of Service:
Date of Service: August 12, 2024
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
Subjective:
Patient on BiPAP earlier this morning, following commands. Intermittently confused overnight noted per nursing records. Patient is following commands for me, denies chest pain, nausea, abdominal pain. Appears to have depressed affect
Objective Data
Data Reviewed
Vital Signs / I&O / Oxygen:
Vital Signs
Temp Pulse Resp BP Pulse Ox
98 F 77 20 106/41 100
08/12/24 05:00 08/12/24 05:17 08/12/24 05:00 08/12/24 05:17 08/12/24 05:00
Intake and Output
08/11/24 08/12/24 08/13/24
06:59 06:59 06:59
Intake Total 550 / 550 100 / 100
Output Total 0 / 0 0 / 0
Balance 550 / 550 100 / 100
SaO2 [CPAP] 100
SaO2 [A/C] 99
SaO2 100
Nasal Cannula flow liters per 4
minute
Physical Exam
General: Comfortable and Other (Patient responsive, following commands, squeezing fingers, wiggling toes, nodding head, breathing on 2 L of oxygen, moving extremities)
HEENT: Normocephalic and Anicteric
Cardiovascular: S1-S2, Irregular Rhythm, Murmur (n), Rub (n) and Peripheral Edema (+1 lower extremity edema bilaterally, right anterior chest HD catheter, right upper extremity PICC, left upper extremity midline)
Respiratory: Clear, Wheeze (n), Crackles (n), Rhonchi (n) and Other (Decreased at base)
GI: Soft, Non Distended and Normal Bowel Sounds
Neurology: Awake, Alert, No Motor Deficits (Moving all extremities) and Other (Following commands, hands and legs, more alert today, BiPAP in place)
Skin: Cyanosis (n), Jaundice (y), Rash (n) and Bruising (n)
Labs/Micro/Reports
Lab Data
08/12/24 03:31
08/12/24 03:31
Microbiology
08/07/24 11:39 Blood/Venous Blood Culture - Preliminary
No Growth in 4 days- Final report to follow
08/07/24 11:27 Blood/Venous Blood Culture - Preliminary
No Growth in 4 days- Final report to follow
08/07/24 10:52 Sputum Respiratory Culture - Final
NO GROWTH
08/07/24 10:52 Sputum Gram Stain - Final
--- NOTE | 2024-08-12 08:22 | W.PN.CARDCBS ---
Today's Communication / Plan
-
Increased heart rates atrial fibrillation. I have increased Lopressor to 75 mg every 6 hours. Follow.
At the current time not on anticoagulation candidate.
Continue supportive care
Volume managed through hemodialysis
Impression / Plan
-
Primary Mine Promotor: Dr. Hiren Vicente
Impression:
MSOF (resp failure, CHF, liver failure, renal failure)
Recent diagnosis paroxysmal atrial fibrillation with recurrent AFib with RVR
GI bleeding
Hypotension previously requiring pressors
CHRISS (likely as a consequence of hypotension, possibly from septic shock versus cardiogenic shock or combination of both)
Acute hypoxic respiratory failure requiring intubation 07/31/24
Liver failure (likely as a consequence of hypotension, possibly from septic shock versus cardiogenic shock or combination of both)
Fever
Sepsis, s aureus PNA, possible S aureus bacteremia
Acute diastolic CHF
Colorectal cancer, suspected metastatic, diagnosed 06/22/2024, not yet started on therapy
Pulmonary nodule with concern for metastasis, scheduled for lung biopsy 08/03
Hypertension
Hyperlipidemia
Obstructive sleep apnea
Obesity
Edema
ECHO 07/31/24: Normal LV function. LVEF is 55-60%. No wall motion abnormality. Top normal right ventricular size with normal RV function. Mild AI and mild TR. Estimated pulmonary artery pressure of 38 mmHg
Plan:
Presented MSOF (resp failure, CHF, liver failure, renal failure), shock, sepsis, lactic acidosis, but is recovering. He is now extubated and mental status is a little clearer.
Volume status is currently being managed by dialysis.
Blood pressure is acceptable.
Continue antibiotics per infectious disease for MSSA pneumonia and strep salivarius bacteremia (possibly a contaminant).
Rhythm has been atrial fibrillation. Increased HR noted at at times overall between around 110 to 130 bpm.
On 08/11/2024 I changed Lopressor to oral dosing (allowable by speech/swallowing evaluation). Unfortunately heart rates are still elevated. I will increase Lopressor to 75 mg every 6 hours.
Continue as needed intravenous Lopressor in addition.
Heparin has been discontinued due to anemia and GI bleed. It does not appear that in the foreseeable future that he is going to be an anticoagulation candidate. According to GI note-- at high risk for recurrent lower GI bleeding given known rectal
masses and likely recurrent oozing/bleeding. In the future once stabilizes and if able to tolerate short-term oral anticoagulation could consider Watchman device. He is [id number] score of 1 (hypertension) but does have diagnosis of cancer.
Hold statin with elevated LFTs. LFTs slowly improving.
Patient currently on BiPAP.
HPI:
64-year-old man with recently diagnosed colorectal cancer with possible lung metastasis and recent diagnosis of atrial fibrillation who presented with lightheadedness and dizziness after starting oral metoprolol as an outpatient and presented to
[place] emergency department for further management. After being found to have CHRISS and anemia he was admitted for further management. Unfortunately developed increased work of breathing this morning, became tachycardic and was found to be
febrile. Did not clinically improve with BiPAP and he was subsequently intubated and transferred to the medical ICU for further management. Currently being treated with broad-spectrum antibiotics and requiring pressor support.
Seen in the outpatient cardiology office 07/26/24 and was in AF with a rapid ventricular rate of 130 bpm. At that visit he had yet to initiate Toprol-XL which was ordered by his primary care physician. At that office visit he agreed to initiate
Toprol-XL 25 mg daily for rate control with plan to defer recommendations regarding rhythm control until he was adequately anticoagulated (atrial fibrillation of unknown duration) and to allow for intermittent interruption of anticoagulation for
planned upcoming procedures regarding his recently diagnosed colorectal cancer with likely pulmonary metastases (bronchoscopy, port placement, colorectal surgery). Eliquis 5 mg twice daily was also initiated on 07/26/24..
Cardiology is consulted for possible heart failure as a cause of his respiratory decompensation. proBNP was mildly elevated (3210), it is possible there is some component of heart failure with preserved ejection fraction.
On presentation to the emergency department 07/30/24, he was in atrial fibrillation with reasonably controlled ventricular rate of 105 bpm. EKG of July 31, 2024 finds sinus rhythm at 77 bpm.
Progress Note - Mine Promotor
Subjective
Date of Service: August 12, 2024
On BiPAP no chest pain or palpitations
Objective
Labs:
08/12/24 03:31
08/12/24 03:31
Labs
Hgb 8.7 g/dL (13.0-18.0) L 08/12/24 03:31
Hct 27.2 % (39.0-52.0) L 08/12/24 03:31
Plt Count 100 10^3/uL (130-400) L D 08/12/24 03:31
PT 19.5 Sec (11.4-14.6) H 08/07/24 11:27
INR 1.62 08/07/24 11:27
APTT 54.9 Sec (23.4-35.0) H 08/07/24 11:27
Sodium 139 mmol/L (135-145) 08/12/24 03:31
Potassium 4.0 mmol/L (3.5-5.1) 08/12/24 03:31
BUN 61 mg/dl (9-20) H 08/12/24 03:31
Creatinine 4.8 mg/dL (0.7-1.3) H* 08/12/24 03:31
Glucose 113 mg/dl (70-99) H 08/12/24 03:31
Vital Signs and I&O:
Vital Signs
Temp Pulse Resp BP Pulse Ox
98.7 F 77 20 106/41 100
08/12/24 07:21 08/12/24 05:17 08/12/24 05:00 08/12/24 05:17 08/12/24 05:00
Vital Signs
Temp Pulse Resp BP Pulse Ox
98.7 F 77 20 106/41 100
08/12/24 07:21 08/12/24 05:17 08/12/24 05:00 08/12/24 05:17 08/12/24 05:00
Intake & Output
08/10/24 08/11/24 08/12/24 08/13/24
06:59 06:59 06:59 06:59
Intake Total 850 / 915 550 / 550 100 / 100
Output Total 110 / 110 0 / 0 0 / 0
Balance 740 / 805 550 / 550 100 / 100
Physical Exam
Physical Exam
General: Ill-appearing man
Heart: Distant heart sounds atrial fibrillation increased rate
Lungs: BiPAP in place. Coarse anterior breath sounds.
Extremities: No clubbing, cyanosis and trace edema bilaterally.
Neuro: Awake
[2024-08-12] MEDS: PROTONIX IV 40 MG IV (09:35)
[2024-08-12] MEDS: NSS (PRESERVATIVE FREE) 10 ML IV (09:35)
--- NOTE | 2024-08-12 10:10 | W.PN.ID1 ---
Date of Service
Date of Service: August 12, 2024
Today's Communication
c/w unasyn today
Assessment / Plan
S aureus (MSSA) Pneumonia
Resolved shock - resolved
Strep salivarius bacteremia x 2 sets drawn at the same time - most likely contaminant
CHRISS on HD
Class III Obesity
Colorectal Adenocarcinoma - not yet on treatment
Psoriatic Arthritis - currently off of Enbrel since ~05/03
- follow thrombocytopenia - improved
- new splenic infarction seen on CTA 08/06 - embolic vs thrombotic
- repeat blood cultures x2 no growth to date
- 08/07 TTE - normal EF, no vegetation or embolic source seen
- would still consider S salivarius most likely contaminant
- 08/07 sputum culture: few mixed morphotypes; negative
- 07/31 sputum: MSSA
- c/w unasyn day 7 tentatively of 7, dosed for HD
- follow clinically
Chief Complaint
-: Pneumonia (S aureus), Bacteremia (streptococcus) and Other (shock)
Subjective / Review of Systems
afebrile
bp stable
confused per RN earlier today, clear on my exam
some bleeding from HD cath noted
no complaints
Vital Signs / Physical Exam
Vital Signs
Vital Signs
Temp Pulse Resp BP Pulse Ox
98.7 F 77 20 106/41 100
08/12/24 07:21 08/12/24 05:17 08/12/24 05:00 08/12/24 05:17 08/12/24 05:00
Physical Exam
Constitutional: No Acute Distress and Chronically Ill
Cardiovascular: Regular Rate and S1/S2; Negative Murmur or Rub
Pulmonary: Clear and Symmetric; Negative Wheezes or Rales
Gastrointestinal: Soft, Non Tender, Non Distended and Normal Bowel Sounds
Skin: Warm and Dry; Negative Rash or Jaundice
Objective Data
Lab Data
Lab Results
08/12/24 03:31
08/12/24 03:31
PT 19.5 Sec (11.4-14.6) H 08/07/24 11:27
INR 1.62 08/07/24 11:27
APTT 54.9 Sec (23.4-35.0) H 08/07/24 11:27
Estimated Creat Clear 22 ml/min 08/12/24 03:31
Lactic Acid 1.7 mmol/L (0.7-2.0) 08/06/24 03:26
Total Bilirubin 4.9 mg/dl (0.2-1.3) H 08/12/24 03:31
AST 228 U/L (17-59) H 08/12/24 03:31
ALT 87 U/L (0-50) H 08/12/24 03:31
Alkaline Phosphatase 363 U/L (38-126) H 08/12/24 03:31
Most recent labs reviewed.
Micro Results:
08/07/24 11:39 Blood Culture - Preliminary
Blood/Venous No Growth in 4 days- Final report to follow
08/07/24 11:27 Blood Culture - Preliminary
Blood/Venous No Growth in 4 days- Final report to follow
08/07/24 10:52 Respiratory Culture - Final
Sputum NO GROWTH
Gram Stain - Final
08/03/24 03:28 Blood Culture - Final
Blood/Venous No Growth - Final Report
08/03/24 03:41 Blood Culture - Final
Blood/Venous No Growth - Final Report
08/01/24 18:19 Blood Culture - Final
Blood/Venous No Growth - Final Report
08/01/24 15:36 Blood Culture - Final
Blood/Venous No Growth - Final Report
07/31/24 12:18 Respiratory Culture - Final
Endotracheal S aureus-Methicillin Sensitive
Gram Stain - Final
07/31/24 07:54 Blood Culture - Final
Blood/Venous Streptococcus salivarius
Gram Stain - Final
07/31/24 07:54 Blood Culture - Final
Blood/Venous Streptococcus salivarius
Gram Stain - Final
07/31/24 11:49 Legionella Urinary Antigen - Final
Urine Negative for Legionella pneumophila Serogroup 1 antigen.
A negative result does not rule out the possiblity of
Legionella infection due to other serogroups or species of
Legionella. Clinical correlation is recommended.
Streptococcus pneumoniae Antigen (M - Final
Negative for Streptococcus pneumoniae antigen.
A negative result does not exclude infection with
Streptococcus pneumoniae. Clinical correlation is
recommended.
07/31/24 12:18 Nasal Screen MRSA (PCR) - Final
Nose MRSA not detected - performed by PCR methodology.
07/31/24 08:10 Influenza Types A & B (KHANG) - Final
Nasal Swab Negative for Influenza A & B, NAAT
Negative results must be combined with clinical observations
and patient history.
Nucleic Acid Amplification test (NAAT)performed on the
[employer] platform.
08/04/24 CXR: Moderate pulmonary edema, without significant change.
--- NOTE | 2024-08-12 10:14 | W.PN.HOSP.TC ---
Today's Communication/Plan
-
finish Augmentin course
stool studies for loose stool
PT/OT
HD per Nephrology
IMU tx pending
Assessment / Plan
Assessment / Plan
Mr. Иван Redd is a 64-year-old man with a past medical history of recently diagnosed colorectal cancer, persistent atrial fibrillation, essential hypertension who presents to the ER with dizziness. Patient reports feeling unwell for the last
2 days. He was recently started on metoprolol and Eliquis for atrial fibrillation. Overnight admission patient developed acute respiratory failure in setting of high fever with finding MSSA in blood and sputum; development of renal failure
requiring CRRT.
Assessment:
Acute Respiratory Failure requiring intubation
MSSA Bacteremia and Pneumonia
Septic Shock
Acute Renal Failure with acute HFpEF (pulm edema)
Hyperkalemia
Lactic Acidosis
Non-Ischemic Myocardial Injury
-s/p intubation morning of 07/31 during rapid response; extubated 08/08 to BIPAP (now just BIPAP is nocturnal). on Room air
-initial concern for flash pulmonary edema given acute SOB, CXR read and patient had been receiving IVF. IV lasix given without significant output and worsening renal function; renal consulted and patient initiated on CRRT on 08/01 given worsening
renal function, essentially no urine output and hyperkalemia. CRRT now stopped and now on HD via tunneled cath. HD schedule per Nephrology.
-08/01: culture results showing MSSA in Sputum and Blood
-TTE results above - no vegetation
-complete Unasyn course today
-off pressors
-off sedation
-Trop peaked at 0.749
-Multimedia Technician Consult appreciated
-Cardiology consult appreciated
-Nephrology consult appreciated
Acute lower GI bleed (exacerbated by IV heparin)
Known history of colorectal Adenocarcinoma with possible lung mets
- s/p CTA without active bleeding source. No role for IR intervention. Source felt be related to known colon masses, although diverticular disease or AVMs possible.
- was previously Scheduled for lung biopsy as outpatient
- patient had not yet started chemotherapy
- GI following
Paroxysmal Atrial Fibrillation
- current in NSR
- off anticoagulation with active bleed episode; family aware of stroke risk
- continue Metoprolol per Cardiology
TME from multifactorial
-critical illness, recent sedation
-monitor mentation
-CTH negative 08/08
-ongoing ST evals. pulled DHT 08/10 - will defer replacement and reassess daily
Constipation
- bowel regimen prn
Essential Hypertension
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
- continue Metoprolol
Hyperlipidemia
- hold rosuvastatin
acute Thrombocytopenia
- HIT panel negative
- platelet carissa 48; now 100
sacral/buttocks DTI, skin purple (blanchable and non blanchable).
- new in hospital
- fecal management system placement attempted, unable to stay in per RN
- wound care service following
DVT ppx: SCDs
Code: Full
Anticipated Discharge: > 48 hours
Subjective/Interval History
-
Date of Service: August 12, 2024
denies any new complaints at present
Objective Data
-
Labs:
Laboratory Results
08/12/24
03:31
WBC 10.2
Hgb 8.7 L
Hct 27.2 L
Plt Count 100 L D
Sodium 139
Potassium 4.0
Chloride 104
Carbon Dioxide 21 L
BUN 61 H
Creatinine 4.8 H*
Glucose 113 H
Calcium 7.7 L
Total Bilirubin 4.9 H
AST 228 H
ALT 87 H
Alkaline Phosphatase 363 H
Vital Signs:
Vital Signs
Temp Pulse Resp BP Pulse Ox
98.7 F 77 20 106/41 100
08/12/24 07:21 08/12/24 05:17 08/12/24 05:00 08/12/24 05:17 08/12/24 05:00
I&O
08/11/24 08/12/24 08/13/24
06:59 06:59 06:59
Intake Total 550 / 550 100 / 100
Output Total 0 / 0 0 / 0
Balance 550 / 550 100 / 100
Physical Exam
-
General: No Apparent Distress and Morbidly Obese
HEENT: Normocephalic and Atraumatic
Respiratory: Negative Wheezes
Cardiac: Regular Rhythm and S1/S2
GI: Soft and Nontender
Musculoskeletal: No Edema
Neuro: AO x 3
Hematologic / Lymphatic: No Lymphadenopathy
Psych: Calm
Data Reviewed
-
Total Time Spent with Patient (in minutes): 44
Labs: Labs Reviewed by me
--- NOTE | 2024-08-12 10:55 | W.PN.NEPH.PH ---
Today's Communication / Plan
-
HD Tuesday
Assessment/Plan
-
64-year-old man with recently diagnosed colorectal cancer with possible lung metastasis and recent diagnosis of atrial fibrillation who presented with lightheadedness and dizziness after starting oral metoprolol as an outpatient and presented to
[place] emergency department. He presented in acute kidney injury admitted to the floors upgraded to the ICU for increased work of breathing ultimately intubated in the ICU with hyperkalemia.
Patient is critically ill on pressor support essentially anuric.
Positive blood cultures pending organism. Staph aureus sputum culture.
Renal consult for acute kidney injury and hyperkalemia
Impression.
Acute kidney injury and hyperkalemia secondary to septic shock.
Colorectal cancer newly diagnosed June 2024 with possible lung metastasis
Atrial fibrillation on oral anticoagulation
VDRF
Bacteremia/sepsis
Plan.
Now converted to IHD, tolerated well, HD Tuesday
monitor CVC site for bleeding seem to be controlled now
Wt is down and on RA
await swallow chloe, NPO currently
ok for gentle IVF if needed
Bp stable off pressors
follow hgb, transfuse as needed
d/w nursing and family
-
-
Date of Service: August 12, 2024
CC / HPI / ROS
-
Chief Complaint:
Septic shock
History of Present Illness:
on RA
Off CRRT, tolerated HD on 08/09 and 08/11
K controlled
LFTs improving
Anuric
Hemoglobin lower at 8.7-stable, no fever
Review of Systems:.
poor historian, no pain
mild cough, no sob
Labs
-
Labs:
WBC 10.2 10^3/uL (4.8-10.8) 08/12/24 03:31
RBC 3.15 10^6/uL (4.70-6.10) L 08/12/24 03:31
Hgb 8.7 g/dL (13.0-18.0) L 08/12/24 03:31
Hct 27.2 % (39.0-52.0) L 08/12/24 03:31
Plt Count 100 10^3/uL (130-400) L D 08/12/24 03:31
Sodium 139 mmol/L (135-145) 08/12/24 03:31
Potassium 4.0 mmol/L (3.5-5.1) 08/12/24 03:31
Chloride 104 mmol/L (98-107) 08/12/24 03:31
Carbon Dioxide 21 mmol/L (22-30) L 08/12/24 03:31
BUN 61 mg/dl (9-20) H 08/12/24 03:31
Creatinine 4.8 mg/dL (0.7-1.3) H* 08/12/24 03:31
eGFR 12.95 08/12/24 03:31
Glucose 113 mg/dl (70-99) H 08/12/24 03:31
Calcium 7.7 mg/dl (8.4-10.2) L 08/12/24 03:31
Phosphorus 4.5 mg/dl (2.5-4.5) 08/08/24 08:31
Duz-S-Uznvnpeszjq Pept 2850 pg/ml 08/06/24 03:26
Albumin 2.9 g/dl (3.5-5.0) L 08/12/24 03:31
Physical Exam
-
Vital Signs:
Vital Signs
Temp Pulse Resp BP Pulse Ox
97.4 F 116 20 139/49 100
08/12/24 11:03 08/12/24 11:53 08/12/24 05:00 08/12/24 11:53 08/12/24 05:00
Cardiovascular:: Regular rate and rhythm
Respiratory:: Bilateral: Coarse (improving)
Lung Excursion:: Normal
Abdomen:: Nontender and Soft
Extremity Edema:: +1: Bilateral: (trace)
Alvarez Catheter: No
[2024-08-12] MEDS: LOPRESSOR 75 MG PO ×3 (11:53→23:07)
[2024-08-12 11:55] LABS: Glucose - Point of Care 109 mg/dl (70-99)
--- NOTE | 2024-08-12 17:24 | PTCARENOTE ---
Transfer
Patient transfer from room 3357 to room 3344 Transfer via bed. All belonging transfer with patient
At time of transfer pt alert to himself, Disoriented to place and time.
SR 90's SBP in 130's
Abdomen round Bowel sound present. Leaky liquid stool small amount
Anuric.
+3 keshia to b/l LE
No change in sacrum wound noted.
[2024-08-12 17:50] LABS: Glucose - Point of Care 110 mg/dl (70-99)
--- NOTE | 2024-08-12 19:17 | PTCARENOTE ---
Received Pt from ICU in sport bed, at bedside. AAO x 1, garbled/slurred speech; HD cath site with bloody drainage - cleaned up and reinforced with Tegaderm. Pt cleaned with CHG wipes. Multiples dressings changed; Sacral wound care
completed. Oriented to room, call lubin within reach. Will continue to monitor and assess.
[2024-08-12 23:24] LABS: Glucose - Point of Care 117 mg/dl (70-99)
[2024-08-13] VITALS (17 sets, daily range): BP systolic 102–145; BP diastolic 42–84; PULSE 3–103; O2SAT 95; BMI 37.8
--- NOTE | 2024-08-13 00:15 | PTCARENOTE ---
assumed care of patient. pt is AAOx1-2, knows it is feburary but unable to tell where he is. very soft spoken, garbled speech. keeps taking oxygen off, noted to be 95% RA, oxygen will stay off for now. inc of bowel, liquid, unable to quantify for
specimen at this time. pt was also grossly incontinent of urine. full CHG bath given and full bed change. pt was placed on bipap at HS. around 0015 pt taking of bipap multiple times, will not leave it on. respiratory notified and bipap remains off
at this time. bed alarm on. pt able to take pills crushed with applesauce without issues. care ongoing
[2024-08-13 05:03] LABS: Hemoglobin 8.8 g/dL (13.0-18.0); Mean Corp Hgb Conc. 31.4 g/dL (33.0-37.0); Mean Corpuscular Hgb 27.5 pg (27.0-31.0); Mean Corpuscular Volume 87.5 fL (80.0-94.0); Mean Platelet Volume 10.8 fL (7.4-10.4); Platelet Count 160 10^3/uL (130-400); Red Cell Dist. Width 22.2 % (11.5-14.5); White Blood Cell Count 11.5 10^3/uL (4.8-10.8)
[2024-08-13 05:11] LABS: B.E. -4.9 mmol/L; HCO3 18.6 mmol/L (21-28); O2 Saturation % 97.2 % (94-98); PCO2 28 mmHg (35-48); PO2 76 mmHg (83-108); pH 7.43 (7.35-7.45)
[2024-08-13 05:14] LABS: O2 Therapy off BIPAP on RA
[2024-08-13] MEDS: UNASYN IV (05:14)
[2024-08-13] MEDS: LOPRESSOR 75 MG PO ×4 (05:14→23:01)
[2024-08-13 05:15] LABS: ALT (SGPT) 87 U/L (0-50); AST (SGOT) 205 U/L (17-59); Albumin 2.9 g/dl (3.5-5.0); Alkaline Phosphatase 354 U/L (38-126); Blood Urea Nitrogen 87 mg/dl (9-20); Calcium 7.7 mg/dl (8.4-10.2); Carbon Dioxide 18 mmol/L (22-30); Chloride 105 mmol/L (98-107); Estimated Creatinine Clearance 15 ml/min; Glucose 117 mg/dl (70-99); Potassium 4.2 mmol/L (3.5-5.1); Sodium 141 mmol/L (135-145); Total Bilirubin 4.7 mg/dl (0.2-1.3); Total Protein 6.1 g/dl (6.3-8.2); eGFR 8.53
[2024-08-13] MEDS: NOVOLOG FLEXPEN-MODERATE RESISTANCE SC ×3 (05:15→17:21)
[2024-08-13 05:25] LABS: Glucose - Point of Care 117 mg/dl (70-99)
[2024-08-13] MEDS: NSS (PRESERVATIVE FREE) 10 ML IV (09:06)
[2024-08-13] MEDS: PROTONIX IV 40 MG IV (09:06)
[2024-08-13 09:12] LABS: % Basophils 0.6 % (0-2); % Eosinophils 0.4 % (0-6); % Immature Granulocytes 0.9 % (0-0.5); % Monocytes 8.2 % (1.7-9.3); % Neutrophils 75.9 % (42.2-75.2); Absolute Basophils 0.1 10^3/uL (0-0.2); Absolute Eosinophils 0.1 10^3/uL (0-0.7); Absolute Immature Granulocytes 0.1 10^3/uL (0-0.05); Absolute Lymphocytes 1.6 10^3/uL (1.2-3.4); Absolute Monocytes 0.9 10^3/uL (0.1-0.6); Absolute Neutrophils 8.8 10^3/uL (1.4-6.5); Nucleated Red Blood Cells % 0 % (-)
--- NOTE | 2024-08-13 09:18 | W.PN.PUL3 ---
Today's Communication / Plan
-
Continue with intermittent HD as per nephrology
Heart rate control with goal <110
Replete K>4, Mg>2
Up OOB as tolerated
PT/OT
Strongly suspect patient will need rehab s/p discharge
Still needs workup pulmonary nodule which can be discussed as an outpatient
No additional recommendations at this time. Pulmonary service will now sign off. Outpatient office follow-up will be arranged with Dr. Olguin. Please reconsult if there are any additional questions/concerns, or if patient's respiratory status
deteriorates.
Assessment
-
Impression
Patient is a 64-year-old male, recently diagnosed with colorectal carcinoma and the disease is presumably advanced, had a lung nodule that was supposed to be biopsied but patient ended up in the ER for dizziness secondary to recent atrial
fibrillation. As his workup was being done in the ER for CHRISS and anemia along with dizziness, patient decompensated, had acute respiratory failure, nonresponsive to nonrebreather mask and noninvasive ventilation, ended up in ICU, rapid response was
called, had to be intubated.
Currently patient is critically ill, has multiorgan failure, including acute respiratory failure, acute renal insufficiency, hypoxic liver, and recently had bloody bowel movements.
Heparin infusion held secondary to the GI bleed. Colorectal surgery evaluated the patient and recommended CTA, which came back negative for any active bleed,GI signed off as no further bleeding.
Currently patient is off sedation, off vasopressors, extubated, on BiPAP, breathing on 2 L of oxygen, on tube feeds, PICC line ,midline in place
Assessment:
# Atrial fibrillation with rapid ventricular response - now rate controlled
# Change in mental status - now more alert
#Acute rectal bleeding in the setting of colorectal carcinoma/heparin infusion - now resolved
#Acute respiratory failure - improved and now on room air
#CHRISS now on CRRT - remains on iHD and off CRRT
#Streptococcal bacteremia via BCx from 07/31/2024
#Acute HFpEF exacerbation
#Metabolic acidosis with increased anion gap due to severe CHRISS
#Transaminitis secondary to hypoxic liver
#Hx of HAN
Other chronic medical conditions:
#Metastatic colorectal cancer with suspected lung metastasis (diagnosed via colonoscopy on 06/22/2024 with partially obstructing tumor seen in the rectum 4 cm from the anal verge, invasive low-grade colorectal adenocarcinoma)
#PET avid 2.2 cm right upper lobe nodule originally planned for robotic bronchoscopy on 08/03/2024 (will be deferred for now)
#HAN on auto CPAP
#History of psoriasis previously on Enbrel
#History of hepatitis A
#History of COVID-19 (03/2024)
#Restrictive lung disease (suspected based on spirometry from 05/15/2021, however patient was coughing during testing and post-bronchodilator FVC was WNL at 84% predicted)
Plan:
# Atrial fibrillation with rapid ventricular response
- Now rate controlled
- Goal HR<110
-Continue with metoprolol 75 mg PO q6hr
Not on anticoagulation due to recent GI bleed and low platelet counts
SYL panel negative from 08/08/2024
Cardiology following-recommendations appreciated
# Change in mental status
On 08/08, patient's mental status was altered in terms of responsiveness, CT scan of head was repeated showing no acute intracranial abnormality
On 08/09, patient was agitated/no purposeful movements, platelet counts dropping, history of rectal bleed-ammonia levels checked-less than 9
he is now improved and is awake and answering questions appropriately - moving all extremities
#Acute rectal bleeding in the setting of colorectal carcinoma/heparin infusion
Patient had bloody bowel movements on 08/06/2024 with roughly 1 L of blood loss
Colorectal surgery consult apprec-CTA negative for active GI bleed
Hemoglobin remained stable around 8, no further bleed, GI signed off
Platelet counts continued to drop-HIT panel negative --> now platelet counts are starting to improve, 160 today
Follow hemoglobin, transfuse if needed to keep Hb >7 g/dL
#Acute respiratory failure
Patient was on mechanical ventilation since 07/31/2024 --> extubated on 08/08/2024
Continue with BiPAP nightly (he has a Hx of HAN)
Chest x-ray 08/11/2024 with improved aeration bilaterally
Incentive spirometry, out of bed to chair as able
#CHRISS now on CRRT
Patient has had worsening renal creatinine function --->placed on CRRT on August 01, 2024-tunneled catheter placed yesterday
Nephro consult appreciated-on intermittent hemodialysis, Alvarez catheter out
HD per nephrology
#Streptococcal bacteremia
Patient remains critically ill
ID consult apprec--Antibiotic switched to unasyn with last day this AM
Echo repeated on 08/07/2024-There is no evidence of vegetation or embolic source seen.
New splenic infarct --> Repeat blood cultures have showing NGTD since 07/12/2024
Loose stool noted. Stool studies pending, and C. difficile antigen positive with toxin negative from today
#Acute HFpEF exacerbation secodary to A-fib with RVR/Acute diastolic CHF
Patient presented with rapid development of pulmonary edema
Updated echo(08/07/2024)-normal biventricular function with normal ejection fraction (55-60%)
Cardio consult appreciated-suggest heart failure with preserved ejection fraction given the recent pulmonary edema
Chest x-ray 08/11 improved
Cardiology following and recs appreciated
#Metabolic acidosis with increased anion gap due to severe CHRISS and lactic acidosis
Lactic acidosis resolved
On intermittent hemodialysis as per nephrology
Continue to trend serum HCO3 level
#Transaminitis secondary to hypoxic liver
Patient had a shock liver response to hypoperfusion secondary to septic shock/cardiogenic shock
AST was greater than 7500 and ALT was greater than 4000
Limit Tylenol to less than 2 g daily to avoid liver damage
LFTs improved - continue to trend
Family is aware of the patient's critical condition
CODE status-currently full code
DVT prophylaxis-Sequential compression devices
No additional recommendations at this time. Pulmonary service will now sign off. Outpatient office follow-up will be arranged with Dr. Olguin. Thank you for allowing us to be involved in the care of this patient. Please reconsult if there are
any additional questions/concerns, or if patient's respiratory status deteriorates.
Total time spent today was 37 minutes for this encounter. Time includes reviewing laboratory test/imaging results, reviewing pertinent medical records, obtaining and reviewing medical history, performing an appropriate exam, ordering medications,
tests and procedures. Time also includes documentation of this encounter, coordinating patient care and communicating with other healthcare professionals. Total time does not include separately billed tests performed on this date of service.
Subjective Data
-
Date of Service:
Date of Service: August 13, 2024
Chief Complaint: Pulmonary Follow Up
Subjective:
Patient seen and evaluated today at bedside. Currently resting in bed in no acute distress with his , Adriana, at bedside. Heart rate 101, BP 130/55 and saturating 94% on room air. Wore BiPAP overnight on 10/5cmH2O. He feels overall weak but is
answering questions appropriately. He denies chest pain, PEREIRA, nausea, fevers or chills.
Review of Systems
General: Other (Negative unless mentioned above)
Objective Data
Data Reviewed
Vital Signs / I&O / Oxygen:
Vital Signs
Temp Pulse Resp BP Pulse Ox
99.1 F 98 32 125/50 95
08/13/24 04:25 08/13/24 06:00 08/13/24 06:00 08/13/24 06:00 08/13/24 06:00
Intake and Output
08/12/24 08/13/24 08/14/24
06:59 06:59 06:59
Intake Total 100 / 100
Output Total 0 / 0 0 / 0
Balance 100 / 100 0 / 0
SaO2 [CPAP] 100
SaO2 [A/C] 99
SaO2 95
Nasal Cannula flow liters per 2
minute
Physical Exam
General: Respiratory Distress (negative), Comfortable, Chills (negative) and Sweats (negative)
HEENT: Normocephalic and Anicteric
Cardiovascular: Irregular Rhythm and Peripheral Edema (+1 lower extremity edema bilaterally)
Respiratory: Wheeze (negative), Crackles (negative), Rhonchi (negative) and Non-Labored Respirations
GI: Soft, Non Distended, Non Tender and Normal Bowel Sounds
Neurology: Awake, Alert and Tremors (negative)
Skin: Warm, Dry, Cyanosis (negative) and Jaundice (negative)
Labs/Micro/Reports
Lab Data
08/13/24 04:22
08/13/24 04:22
Laboratory Results
08/13/24
04:59
pH 7.43
pCO2 28 L
pO2 76 L
HCO3 18.6 L
O2 Delivery Level off bipap on ra
Microbiology
08/13/24 05:31 Feces/Stool C. difficile GDH Antigen & Toxins - Final
C. difficile antigen positive, toxin negative.
Clostridium difficile present, but toxin not detected.
Patient may be a carrier, colonized with nontoxinogenic
strain or the level of toxin in sample is below detection
limits. This information should be used in conjunction with
the patient's clinical history.
08/07/24 11:39 Blood/Venous Blood Culture - Final
No Growth - Final Report
08/07/24 11:27 Blood/Venous Blood Culture - Final
No Growth - Final Report
08/07/24 10:52 Sputum Respiratory Culture - Final
NO GROWTH
08/07/24 10:52 Sputum Gram Stain - Final
--- NOTE | 2024-08-13 10:26 | W.PN.NEPH.PH ---
Today's Communication / Plan
-
Dialysis tomorrow
Assessment/Plan
-
64-year-old man with recently diagnosed colorectal cancer with possible lung metastasis and recent diagnosis of atrial fibrillation who presented with lightheadedness and dizziness after starting oral metoprolol as an outpatient and presented to
[place] emergency department. He presented in acute kidney injury admitted to the floors upgraded to the ICU for increased work of breathing ultimately intubated in the ICU with hyperkalemia.
Patient is critically ill on pressor support essentially anuric.
Positive blood cultures pending organism. Staph aureus sputum culture.
Renal consult for acute kidney injury and hyperkalemia
Impression.
Acute kidney injury and hyperkalemia secondary to septic shock.
Colorectal cancer newly diagnosed June 2024 with possible lung metastasis
Atrial fibrillation on oral anticoagulation
VDRF
Bacteremia/sepsis
Plan.
Now converted to IHD, tolerated well, next HD Tuesday
monitor CVC site for bleeding seem to be controlled now
Wt is down and on RA
await swallow evalaution, NPO currently
ok for gentle IVF if needed
Bp stable off pressors
follow hgb, transfuse as needed
-
-
Date of Service: August 13, 2024
CC / HPI / ROS
-
Chief Complaint:
Septic shock
History of Present Illness:
on RA
Off CRRT, tolerated HD on 08/09 and 08/11
Hemoglobin lower at 8.8-stable, no fever
Review of Systems:.
poor historian, no pain
mild cough, no sob
Saturated pad last evening with urine
Labs
-
Labs:
WBC 11.5 10^3/uL (4.8-10.8) H 08/13/24 04:22
RBC 3.20 10^6/uL (4.70-6.10) L 08/13/24 04:22
Hgb 8.8 g/dL (13.0-18.0) L 08/13/24 04:22
Hct 28.0 % (39.0-52.0) L 08/13/24 04:22
Plt Count 160 10^3/uL (130-400) D 08/13/24 04:22
Sodium 141 mmol/L (135-145) 08/13/24 04:22
Potassium 4.2 mmol/L (3.5-5.1) 08/13/24 04:22
Chloride 105 mmol/L (98-107) 08/13/24 04:22
Carbon Dioxide 18 mmol/L (22-30) L 08/13/24 04:22
BUN 87 mg/dl (9-20) H 08/13/24 04:22
Creatinine 6.8 mg/dL (0.7-1.3) H* 08/13/24 04:22
eGFR 8.53 08/13/24 04:22
Glucose 117 mg/dl (70-99) H 08/13/24 04:22
Calcium 7.7 mg/dl (8.4-10.2) L 08/13/24 04:22
Phosphorus 4.5 mg/dl (2.5-4.5) 08/08/24 08:31
Wry-W-Uskurxnopjo Pept 2850 pg/ml 08/06/24 03:26
Albumin 2.9 g/dl (3.5-5.0) L 08/13/24 04:22
Physical Exam
-
Vital Signs:
Vital Signs
Temp Pulse Resp BP Pulse Ox
99.1 F 98 32 125/50 95
08/13/24 07:05 08/13/24 06:00 08/13/24 06:00 08/13/24 06:00 08/13/24 06:00
Cardiovascular:: Regular rate and rhythm
Respiratory:: Bilateral: Coarse (improving)
Lung Excursion:: Normal
Abdomen:: Nontender and Soft
Extremity Edema:: +1: Bilateral: (trace)
Alvarez Catheter: No
--- NOTE | 2024-08-13 12:05 | PTCARENOTE ---
Pt to Video swallow and back without incident diet ordered. Pt remains soft spoken garbled speech. Pt flips from sinus rhythm to afib to SR
[2024-08-13 12:22] LABS: Glucose - Point of Care 139 mg/dl (70-99)
--- NOTE | 2024-08-13 12:25 | PTOTSP ---
Videofluoroscopic swallow study
Summary: Patient with mild oral/pharyngeal dysphagia with silent aspiration (no cough) of thin liquids via straw. See patient care note for details.
Recommend:
1. IDDSI Level 6 Soft and Bite Sized, IDDSI Level 2 Mildly Thick
2. Medications: in puree
3. Strategies: full supervision, assist as needed, single sips, slow rate, alternate sips/bites to assist with oral/pharyngeal clearance
4. Aspiration risk hydration protocol - ice chips and sips of thin water after oral care, with supervision
5. Dysphagia tx at the acute care level for patient education, determine timing of repeat swallow study.
--- NOTE | 2024-08-13 13:24 | W.PN.HOSP.TC ---
Today's Communication/Plan
-
dysphagia diet
PT/OT
HD per Nephrology
DC planning to SNF
Assessment / Plan
Assessment / Plan
Mr. Иван Redd is a 64-year-old man with a past medical history of recently diagnosed colorectal cancer, persistent atrial fibrillation, essential hypertension who presents to the ER with dizziness. Patient reports feeling unwell for the last
2 days. He was recently started on metoprolol and Eliquis for atrial fibrillation. Overnight admission patient developed acute respiratory failure in setting of high fever with finding MSSA in blood and sputum; development of renal failure
requiring CRRT.
Assessment:
Acute Respiratory Failure requiring intubation
MSSA Bacteremia and Pneumonia
Septic Shock
Acute Renal Failure with acute HFpEF (pulm edema)
Hyperkalemia
Lactic Acidosis
Non-Ischemic Myocardial Injury
-s/p intubation morning of 07/31 during rapid response; extubated 08/08 to BIPAP (now just BIPAP is nocturnal). on Room air
-initial concern for flash pulmonary edema given acute SOB, CXR read and patient had been receiving IVF. IV lasix given without significant output and worsening renal function; renal consulted and patient initiated on CRRT on 08/01 given worsening
renal function, essentially no urine output and hyperkalemia. CRRT now stopped and now on HD via tunneled cath. HD schedule per Nephrology.
-08/01: culture results showing MSSA in Sputum and Blood
-TTE results above - no vegetation
-completed Unasyn course
-off pressors
-off sedation
-Trop peaked at 0.749
-Bench Tool Maker Consult appreciated
-Cardiology consult appreciated
-Nephrology consult appreciated
Acute lower GI bleed (exacerbated by IV heparin)
Known history of colorectal Adenocarcinoma with possible lung mets
- s/p CTA without active bleeding source. No role for IR intervention. Source felt be related to known colon masses, although diverticular disease or AVMs possible.
- was previously Scheduled for lung biopsy as outpatient
- patient had not yet started chemotherapy
- GI following
Paroxysmal Atrial Fibrillation
- current in NSR
- off anticoagulation with active bleed episode; family aware of stroke risk
- continue Metoprolol per Cardiology
TME from multifactorial
-critical illness, recent sedation
-monitor mentation
-CTH negative 08/08
-s/p VSE 08/13; now on dysphagia diet
Constipation
- bowel regimen prn
Essential Hypertension
- hold TV TECHNICIAN Olmesartan-HCTZ
- continue Metoprolol
Hyperlipidemia
- hold rosuvastatin
acute Thrombocytopenia
- HIT panel negative
- platelet carissa 48; now 160
sacral/buttocks DTI, skin purple (blanchable and non blanchable).
- new in hospital
- fecal management system placement attempted, unable to stay in per RN
- wound care service following
DVT ppx: SCDs
Code: Full
Anticipated Discharge: > 48 hours
Subjective/Interval History
-
Date of Service: August 13, 2024
more awake
no overnight events
Objective Data
-
Labs:
Laboratory Results
08/13/24 08/13/24
04:22 04:59
WBC 11.5 H
Hgb 8.8 L
Hct 28.0 L
Plt Count 160 D
HCO3 18.6 L
Sodium 141
Potassium 4.2
Chloride 105
Carbon Dioxide 18 L
BUN 87 H
Creatinine 6.8 H*
Glucose 117 H
Calcium 7.7 L
Total Bilirubin 4.7 H
AST 205 H
ALT 87 H
Alkaline Phosphatase 354 H
Vital Signs:
Vital Signs
Temp Pulse Resp BP Pulse Ox
99.1 F 105 35 130/55 95
08/13/24 07:05 08/13/24 12:19 08/13/24 10:00 08/13/24 12:19 08/13/24 10:00
I&O
08/12/24 08/13/24 08/14/24
06:59 06:59 06:59
Intake Total 100 / 100
Output Total 0 / 0 0 / 0
Balance 100 / 100 0 / 0
Physical Exam
-
General: No Apparent Distress
HEENT: Normocephalic and Atraumatic
Respiratory: Negative Wheezes
Cardiac: Regular Rhythm and S1/S2
Genito-urinary: No Costovertebral Tender
Musculoskeletal: No Edema
Neuro: AO x 3
Psych: Calm
Data Reviewed
-
Total Time Spent with Patient (in minutes): 41
Labs: Labs Reviewed by me
--- NOTE | 2024-08-13 13:47 | W.PN.CARDCBS ---
Today's Communication / Plan
-
Late entry, note completed yesterday but not signed
Impression / Plan
-
Primary Gambling Cashier: Dr. Hiren Vicente
Impression:
MSOF (resp failure, CHF, liver failure, renal failure)
Recent diagnosis paroxysmal atrial fibrillation with recurrent AFib with RVR
GI bleeding
Hypotension previously requiring pressors
CHRISS (likely as a consequence of hypotension, possibly from septic shock versus cardiogenic shock or combination of both)
Acute hypoxic respiratory failure requiring intubation 07/31/24
Liver failure (likely as a consequence of hypotension, possibly from septic shock versus cardiogenic shock or combination of both)
Fever
Sepsis, s aureus PNA, possible S aureus bacteremia
Acute diastolic CHF
Colorectal cancer, suspected metastatic, diagnosed 06/22/2024, not yet started on therapy
Pulmonary nodule with concern for metastasis, scheduled for lung biopsy 08/03
Hypertension
Hyperlipidemia
Obstructive sleep apnea
Obesity
Edema
ECHO 07/31/24: Normal LV function. LVEF is 55-60%. No wall motion abnormality. Top normal right ventricular size with normal RV function. Mild AI and mild TR. Estimated pulmonary artery pressure of 38 mmHg
Plan:
Overall slow improvement after presenting with multisystem organ failure, off the ventilator, beginning physical therapy
He remains on hemodialysis, defer to nephrology as to optimal volume status, may still be somewhat volume overloaded.
Heart rate and blood pressure are acceptable.
Antibiotic therapy per ID/hospitalist
We will continue to titrate metoprolol as needed for heart rate control
Stroke risk is relatively low by [id number], currently not on anticoagulation and with anemia and GI bleed. Off heparin, will continue to hold anticoagulation at present.
LFTs are improving, utility of statin therapy in this situation is low. Continue to hold.
Eventually will need to address colon cancer with possible metastatic disease. For now, continue to focus on rate control and volume status
HPI:
64-year-old man with recently diagnosed colorectal cancer with possible lung metastasis and recent diagnosis of atrial fibrillation who presented with lightheadedness and dizziness after starting oral metoprolol as an outpatient and presented to
[place] emergency department for further management. After being found to have CHRISS and anemia he was admitted for further management. Unfortunately developed increased work of breathing this morning, became tachycardic and was found to be
febrile. Did not clinically improve with BiPAP and he was subsequently intubated and transferred to the medical ICU for further management. Currently being treated with broad-spectrum antibiotics and requiring pressor support.
Seen in the outpatient cardiology office 07/26/24 and was in AF with a rapid ventricular rate of 130 bpm. At that visit he had yet to initiate Toprol-XL which was ordered by his primary care physician. At that office visit he agreed to initiate
Toprol-XL 25 mg daily for rate control with plan to defer recommendations regarding rhythm control until he was adequately anticoagulated (atrial fibrillation of unknown duration) and to allow for intermittent interruption of anticoagulation for
planned upcoming procedures regarding his recently diagnosed colorectal cancer with likely pulmonary metastases (bronchoscopy, port placement, colorectal surgery). Eliquis 5 mg twice daily was also initiated on 07/26/24..
Cardiology is consulted for possible heart failure as a cause of his respiratory decompensation. proBNP was mildly elevated (3210), it is possible there is some component of heart failure with preserved ejection fraction.
On presentation to the emergency department 07/30/24, he was in atrial fibrillation with reasonably controlled ventricular rate of 105 bpm. EKG of July 31, 2024 finds sinus rhythm at 77 bpm.
Progress Note - Gambling Cashier
Subjective
Date of Service: August 13, 2024:
64-year-old man with colorectal cancer and possible lung metastasis, now with persistent atrial fibrillation, onset late July 2024. Admitted July 30, with VDRF July 31 through August 08, with CHRISS, acute HFpEF, GI bleed, and hypotension,
shock liver, Staph aureus pneumonia and sepsis, hypertension, hyperlipidemia, obstructive sleep apnea, placed on hemodialysis during this hospital stay
PMH: As above
Medications: Rosuvastatin 10 mg at bedtime, pantoprazole 40 mg IV daily, metoprolol tartrate 75 every 6, Epogen, subcu insulin
130/55, pulse 105, respiratory 35 afebrile, sats 95%, weight is one 122.8 kg, was 125 kg August 12, on admission weight was 132 kg, on June 22 was 139.7 kg, somewhat obtunded, participating in physical therapy, communicative, at bedside,
head neck exam unremarkable, still some crackles in lungs, irregular rate and rhythm,, overall controlled to slightly fast, abdomen benign some
Hemoglobin is 8.8, platelets are 168,
7.4 10/06/75 0.6 on room air
BUN and creatinine 87 and 6.8, proBNP was 2850 on August 06
Chest x-ray August 11 possible small effusions
Telemetry: Atrial fibrillation ventricular response roughly 100
ECG on August 11 A-fib, low volts, nonspecific ST and T changes, rapid ventricular response
Objective
Labs:
08/13/24 04:22
08/13/24 04:22
Labs
Hgb 8.8 g/dL (13.0-18.0) L 08/13/24 04:22
Hct 28.0 % (39.0-52.0) L 08/13/24 04:22
Plt Count 160 10^3/uL (130-400) D 08/13/24 04:22
PT 19.5 Sec (11.4-14.6) H 08/07/24 11:27
INR 1.62 08/07/24 11:27
APTT 54.9 Sec (23.4-35.0) H 08/07/24 11:27
Sodium 141 mmol/L (135-145) 08/13/24 04:22
Potassium 4.2 mmol/L (3.5-5.1) 08/13/24 04:22
BUN 87 mg/dl (9-20) H 08/13/24 04:22
Creatinine 6.8 mg/dL (0.7-1.3) H* 08/13/24 04:22
Glucose 117 mg/dl (70-99) H 08/13/24 04:22
Vital Signs and I&O:
Vital Signs
Temp Pulse Resp BP Pulse Ox
37.3 C 105 35 130/55 95
08/13/24 07:05 08/13/24 12:19 08/13/24 10:00 08/13/24 12:19 08/13/24 10:00
Vital Signs
Temp Pulse Resp BP Pulse Ox
37.3 C 105 35 130/55 95
08/13/24 07:05 08/13/24 12:19 08/13/24 10:00 08/13/24 12:19 08/13/24 10:00
Intake & Output
08/11/24 08/12/24 08/13/24 08/14/24
07:59 07:59 07:59 07:59
Intake Total 485 / 485 100 / 100
Output Total 0 / 0 0 / 0 0 / 0
Balance 485 / 485 100 / 100 0 / 0
Physical Exam
Physical Exam
See above
--- NOTE | 2024-08-13 14:19 | W.PN.ID1 ---
Date of Service
Date of Service: August 13, 2024
Today's Communication
- completed 7 days of unasyn - stopped
- follow clinically
Assessment / Plan
S aureus (MSSA) Pneumonia
Resolved shock - resolved
Strep salivarius bacteremia x 2 sets drawn at the same time - most likely contaminant
CHRISS on HD
Class III Obesity
Colorectal Adenocarcinoma - not yet on treatment
Psoriatic Arthritis - currently off of Enbrel since ~05/03
- completed 7 days of unasyn - stopped
- follow clinically
Chief Complaint
-: Pneumonia (S aureus), Bacteremia (streptococcus) and Other (shock)
Subjective / Review of Systems
afebrile
bp stable
dysphagia diet
Vital Signs / Physical Exam
Vital Signs
Vital Signs
Temp Pulse Resp BP Pulse Ox
99.1 F 103 36 130/55 94
08/13/24 07:05 08/13/24 13:00 08/13/24 13:00 08/13/24 12:19 08/13/24 13:00
Physical Exam
Constitutional: Chronically Ill and Non-toxic
Cardiovascular: Regular Rate and S1/S2; Negative Murmur or Rub
Pulmonary: Clear and Symmetric; Negative Wheezes or Rales
Gastrointestinal: Soft, Non Tender, Non Distended and Normal Bowel Sounds
Skin: Warm and Dry; Negative Rash or Jaundice
Objective Data
Lab Data
Lab Results
08/13/24 04:22
08/13/24 04:22
PT 19.5 Sec (11.4-14.6) H 08/07/24 11:27
INR 1.62 08/07/24 11:27
APTT 54.9 Sec (23.4-35.0) H 08/07/24 11:27
Estimated Creat Clear 15 ml/min 08/13/24 04:22
Lactic Acid 1.7 mmol/L (0.7-2.0) 08/06/24 03:26
Total Bilirubin 4.7 mg/dl (0.2-1.3) H 08/13/24 04:22
AST 205 U/L (17-59) H 08/13/24 04:22
ALT 87 U/L (0-50) H 08/13/24 04:22
Alkaline Phosphatase 354 U/L (38-126) H 08/13/24 04:22
Most recent labs reviewed.
Micro Results:
08/13/24 05:31 Salmonella/Shigella Culture - Pending
Feces/Stool Campylobacter Culture - Pending
Shiga Toxin Test - Pending
Stool Leukocytes - Final
08/13/24 05:31 C. difficile GDH Antigen & Toxins - Final
Feces/Stool C. difficile antigen positive, toxin negative.
Clostridium difficile present, but toxin not detected.
Patient may be a carrier, colonized with nontoxinogenic
strain or the level of toxin in sample is below detection
limits. This information should be used in conjunction with
the patient's clinical history.
- Final
Negative for Norovirus GI and GII.
08/07/24 11:39 Blood Culture - Final
Blood/Venous No Growth - Final Report
08/07/24 11:27 Blood Culture - Final
Blood/Venous No Growth - Final Report
08/07/24 10:52 Respiratory Culture - Final
Sputum NO GROWTH
Gram Stain - Final
08/03/24 03:28 Blood Culture - Final
Blood/Venous No Growth - Final Report
08/03/24 03:41 Blood Culture - Final
Blood/Venous No Growth - Final Report
08/01/24 18:19 Blood Culture - Final
Blood/Venous No Growth - Final Report
08/01/24 15:36 Blood Culture - Final
Blood/Venous No Growth - Final Report
07/31/24 12:18 Respiratory Culture - Final
Endotracheal S aureus-Methicillin Sensitive
Gram Stain - Final
07/31/24 07:54 Blood Culture - Final
Blood/Venous Streptococcus salivarius
Gram Stain - Final
07/31/24 07:54 Blood Culture - Final
Blood/Venous Streptococcus salivarius
Gram Stain - Final
07/31/24 11:49 Legionella Urinary Antigen - Final
Urine Negative for Legionella pneumophila Serogroup 1 antigen.
A negative result does not rule out the possiblity of
Legionella infection due to other serogroups or species of
Legionella. Clinical correlation is recommended.
Streptococcus pneumoniae Antigen (M - Final
Negative for Streptococcus pneumoniae antigen.
A negative result does not exclude infection with
Streptococcus pneumoniae. Clinical correlation is
recommended.
07/31/24 12:18 Nasal Screen MRSA (PCR) - Final
Nose MRSA not detected - performed by PCR methodology.
07/31/24 08:10 Influenza Types A & B (KHANG) - Final
Nasal Swab Negative for Influenza A & B, NAAT
Negative results must be combined with clinical observations
and patient history.
Nucleic Acid Amplification test (NAAT)performed on the
[employer] platform.
08/04/24 CXR: Moderate pulmonary edema, without significant change.
--- NOTE | 2024-08-13 15:52 | CM ---
Addendum entered by Tiny Fuentes RN 08/13/24 17:00:
Messages with Dr Jackson- physiatry consult ordered.
Original Note:
Patient with Hx colorectal cancer with Dx HF who was extubated 08/08, ARF with new HD. O2 2L, BiPAP HS. VSE today. PT/OT recommend skilled rehab. Seen by wound care nurse. Seen by ST for dysphagia. Per nurse; confused, garbled speech.
Spoke with patient's Adriana;
discussed d/c needs including rehab and outpatient HD.
would like a referral to [facility], if unable to go there then [facility].
If not accepted by [facility] she is interested in [facility].
agrees to a referral [facility]- she will discuss schedule preferences with the patient and let CM know.
Patient has 2 supportive daughters, 1 in [facility] & 1 in [place]. They were here for 2 weeks visiting and recently retuirned home.
Message from Dr Krause -Swathi for dialysis is CHRISS.
Spoke with [facility]; initiated outpatient HD referral. Clinical info sent via [employer].
Referral sent to [facility].
Plan follow up with [facility]; referral.
Plan follow up with [facility] for outpatient HD.
[2024-08-13 17:18] LABS: Glucose - Point of Care 142 mg/dl (70-99)
--- NOTE | 2024-08-13 18:12 | PTCARENOTE ---
Pt oncont of stool and urine . changed sacral dressing changed. Pt more lethargic rsp called tp put on Bipap
[2024-08-14] VITALS (36 sets, daily range): BP systolic 84–153; BP diastolic 23–90
[2024-08-14] MEDS: LOPRESSOR 75 MG PO (05:51)
--- NOTE | 2024-08-14 05:53 | PTCARENOTE ---
Pt agreeable to wear BiPAP throughout the night. Inc of 2 moderate loose BMs. Hygiene care performed. Wound care performed. Pt denies new complaints at this time
[2024-08-14 06:26] LABS: ALT (SGPT) 103 U/L (0-50); AST (SGOT) 229 U/L (17-59); Albumin 2.8 g/dl (3.5-5.0); Alkaline Phosphatase 340 U/L (38-126); Blood Urea Nitrogen 107 mg/dl (9-20); Calcium 7.6 mg/dl (8.4-10.2); Carbon Dioxide 18 mmol/L (22-30); Chloride 107 mmol/L (98-107); Estimated Creatinine Clearance 13 ml/min; Glucose 122 mg/dl (70-99); Potassium 4.2 mmol/L (3.5-5.1); Sodium 143 mmol/L (135-145); Total Bilirubin 4.1 mg/dl (0.2-1.3); Total Protein 6.2 g/dl (6.3-8.2); eGFR 6.91
[2024-08-14 06:50] LABS: Hematocrit 26.8 % (39.0-52.0); Hemoglobin 8.8 g/dL (13.0-18.0); Mean Corp Hgb Conc. 32.8 g/dL (33.0-37.0); Mean Corpuscular Hgb 28.6 pg (27.0-31.0); Mean Platelet Volume 11.2 fL (7.4-10.4); Platelet Count 191 10^3/uL (130-400); Red Blood Cell Count 3.08 10^6/uL (4.70-6.10); Red Cell Dist. Width 23.8 % (11.5-14.5); White Blood Cell Count 12.4 10^3/uL (4.8-10.8)
[2024-08-14 07:57] LABS: Glucose - Point of Care 129 mg/dl (70-99)
[2024-08-14] MEDS: NOVOLOG FLEXPEN-MODERATE RESISTANCE SC ×3 (08:04→17:35)
[2024-08-14 08:05] LABS: Absolute Neutrophils -Man Diff 10.1 10^3/uL (1.4-6.5); Anisocytosis 1+; Band Neutrophils 1 % (0-3); Hypochromasia 1+; Lymphocytes 8 % (20-51); Monocytes 6 % (2-9); Normal RBC Morphology No; Plasmacytoid Lymphocytes 4 %; Platelets Checked Yes; Polychromasia 1+; Segmented Neutrophils 81 % (42-75); Target Cells 1+
[2024-08-14 08:06] LABS: Ovalocytes FEW; Total Cells Counted 100
[2024-08-14] MEDS: PROTONIX IV 40 MG IV (08:22)
[2024-08-14] MEDS: NSS (PRESERVATIVE FREE) 10 ML IV (08:22)
--- NOTE | 2024-08-14 09:23 | W.PN.ID1 ---
Date of Service
Date of Service: August 14, 2024
Today's Communication
- completed planned course of antibiotics yesterday
ID service will no longer actively follow this patient please recall for further questions
Assessment / Plan
S aureus (MSSA) Pneumonia
Resolved shock - resolved
Strep salivarius bacteremia x 2 sets drawn at the same time - most likely contaminant
CHRISS on HD
Class III Obesity
Colorectal Adenocarcinoma - not yet on treatment
Psoriatic Arthritis - currently off of Enbrel since ~05/03
- completed planned course of antibiotics yesterday
ID service will no longer actively follow this patient please recall for further questions
Chief Complaint
-: Pneumonia (S aureus), Bacteremia (streptococcus) and Other (shock)
Subjective / Review of Systems
afebrile
bp table
minimal leukocytosis today, plt continue to improve
no significant overnight events
Vital Signs / Physical Exam
Vital Signs
Vital Signs
Temp Pulse Resp BP Pulse Ox
99.2 F 104 40 149/63 96
08/14/24 03:00 08/14/24 06:00 08/14/24 06:00 08/14/24 05:51 08/14/24 04:00
Physical Exam
Constitutional: Chronically Ill
Cardiovascular: Regular Rate and S1/S2; Negative Murmur or Rub
Pulmonary: Clear and Symmetric; Negative Wheezes or Rales
Gastrointestinal: Soft, Non Tender, Non Distended and Normal Bowel Sounds
Skin: Warm and Dry; Negative Rash or Jaundice
Objective Data
Lab Data
Lab Results
08/14/24 05:48
08/14/24 05:48
PT 19.5 Sec (11.4-14.6) H 08/07/24 11:27
INR 1.62 08/07/24 11:27
APTT 54.9 Sec (23.4-35.0) H 08/07/24 11:27
Estimated Creat Clear 13 ml/min 08/14/24 05:48
Lactic Acid 1.7 mmol/L (0.7-2.0) 08/06/24 03:26
Total Bilirubin 4.1 mg/dl (0.2-1.3) H 08/14/24 05:48
AST 229 U/L (17-59) H 08/14/24 05:48
ALT 103 U/L (0-50) H 08/14/24 05:48
Alkaline Phosphatase 340 U/L (38-126) H 08/14/24 05:48
Most recent labs reviewed.
Micro Results:
08/13/24 05:31 Salmonella/Shigella Culture - Pending
Feces/Stool Campylobacter Culture - Pending
Shiga Toxin Test - Pending
Stool Leukocytes - Final
08/13/24 05:31 C. difficile GDH Antigen & Toxins - Final
Feces/Stool C. difficile antigen positive, toxin negative.
Clostridium difficile present, but toxin not detected.
Patient may be a carrier, colonized with nontoxinogenic
strain or the level of toxin in sample is below detection
limits. This information should be used in conjunction with
the patient's clinical history.
- Final
Negative for Norovirus GI and GII.
08/07/24 11:39 Blood Culture - Final
Blood/Venous No Growth - Final Report
08/07/24 11:27 Blood Culture - Final
Blood/Venous No Growth - Final Report
08/07/24 10:52 Respiratory Culture - Final
Sputum NO GROWTH
Gram Stain - Final
08/03/24 03:28 Blood Culture - Final
Blood/Venous No Growth - Final Report
08/03/24 03:41 Blood Culture - Final
Blood/Venous No Growth - Final Report
08/01/24 18:19 Blood Culture - Final
Blood/Venous No Growth - Final Report
08/01/24 15:36 Blood Culture - Final
Blood/Venous No Growth - Final Report
07/31/24 12:18 Respiratory Culture - Final
Endotracheal S aureus-Methicillin Sensitive
Gram Stain - Final
07/31/24 07:54 Blood Culture - Final
Blood/Venous Streptococcus salivarius
Gram Stain - Final
07/31/24 07:54 Blood Culture - Final
Blood/Venous Streptococcus salivarius
Gram Stain - Final
07/31/24 11:49 Legionella Urinary Antigen - Final
Urine Negative for Legionella pneumophila Serogroup 1 antigen.
A negative result does not rule out the possiblity of
Legionella infection due to other serogroups or species of
Legionella. Clinical correlation is recommended.
Streptococcus pneumoniae Antigen (M - Final
Negative for Streptococcus pneumoniae antigen.
A negative result does not exclude infection with
Streptococcus pneumoniae. Clinical correlation is
recommended.
07/31/24 12:18 Nasal Screen MRSA (PCR) - Final
Nose MRSA not detected - performed by PCR methodology.
07/31/24 08:10 Influenza Types A & B (KHANG) - Final
Nasal Swab Negative for Influenza A & B, NAAT
Negative results must be combined with clinical observations
and patient history.
Nucleic Acid Amplification test (NAAT)performed on the
[employer] platform.
08/04/24 CXR: Moderate pulmonary edema, without significant change.
--- NOTE | 2024-08-14 09:36 | W.PN.HOSP.TC ---
Today's Communication/Plan
-
ongoing PT/OT/ST evals and placement
HD schedule per Nephrology
continue nocturnal BiPAP
Assessment / Plan
Assessment / Plan
Mr. Иван Redd is a 64-year-old man with a past medical history of recently diagnosed colorectal cancer, persistent atrial fibrillation, essential hypertension who presents to the ER with dizziness. Patient reports feeling unwell for the last
2 days. He was recently started on metoprolol and Eliquis for atrial fibrillation. Overnight admission patient developed acute respiratory failure in setting of high fever with finding MSSA in blood and sputum; development of renal failure
requiring CRRT.
Assessment:
Acute Respiratory Failure requiring intubation
MSSA Bacteremia and Pneumonia
Septic Shock
Acute Renal Failure with acute HFpEF (pulm edema)
Hyperkalemia
Lactic Acidosis
Non-Ischemic Myocardial Injury
-s/p intubation morning of 07/31 during rapid response; extubated 08/08 to BIPAP (now just BIPAP is nocturnal). on Room air
-initial concern for flash pulmonary edema given acute SOB, CXR read and patient had been receiving IVF. IV lasix given without significant output and worsening renal function; renal consulted and patient initiated on CRRT on 08/01 given worsening
renal function, essentially no urine output and hyperkalemia. CRRT now stopped and now on HD via tunneled cath. HD schedule per Nephrology.
-08/01: culture results showing MSSA in Sputum and Blood
-TTE results above - no vegetation
-completed Unasyn course
-off pressors
-off sedation
-Trop peaked at 0.749
-Motor Equipment Lieutenant Consult appreciated
-Cardiology consult appreciated
-Nephrology consult appreciated
Acute lower GI bleed (exacerbated by IV heparin)
Known history of colorectal Adenocarcinoma with possible lung mets
- s/p CTA without active bleeding source. No role for IR intervention. Source felt be related to known colon masses, although diverticular disease or AVMs possible.
- was previously Scheduled for lung biopsy as outpatient
- patient had not yet started chemotherapy
- GI following
Paroxysmal Atrial Fibrillation
- current in NSR
- off anticoagulation with active bleed episode; family aware of stroke risk
- continue Metoprolol per Cardiology
TME from multifactorial
-critical illness, recent sedation
-monitor mentation
-CTH negative 08/08
-s/p VSE 08/13; now on dysphagia diet. ongoing speech evals.
Constipation
- bowel regimen prn
Essential Hypertension
- hold CANAL [employer]AT [employer]TAIN Olmesartan-HCTZ
- continue Metoprolol
Hyperlipidemia
- hold rosuvastatin
acute Thrombocytopenia
- HIT panel negative
- platelet carissa 48; now 160
sacral/buttocks DTI, skin purple (blanchable and non blanchable).
- new in hospital
- fecal management system placement attempted, unable to stay in per RN
- wound care service following
DVT ppx: SCDs
Code: Full
Anticipated Discharge: > 48 hours
Subjective/Interval History
-
Date of Service: August 14, 2024
brief period of lethargy at change of shift last evening, spontaneously resolved
no overnight events
HD today @ noon
Objective Data
-
Labs:
Laboratory Results
08/14/24
05:48
WBC 12.4 H
Hgb 8.8 L
Hct 26.8 L
Plt Count 191
Sodium 143
Potassium 4.2
Chloride 107
Carbon Dioxide 18 L
BUN 107 H*
Creatinine 8.1 H*
Glucose 122 H
Calcium 7.6 L
Total Bilirubin 4.1 H
AST 229 H
ALT 103 H
Alkaline Phosphatase 340 H
Vital Signs:
Vital Signs
Temp Pulse Resp BP Pulse Ox
99.2 F 104 40 149/63 96
08/14/24 03:00 08/14/24 06:00 08/14/24 06:00 08/14/24 05:51 08/14/24 04:00
I&O
08/13/24 08/14/24 08/15/24
06:59 06:59 06:59
Output Total 0 / 0
Balance 0 / 0
Physical Exam
-
General: No Apparent Distress
HEENT: Normocephalic and Atraumatic
Respiratory: Decreased Breath Sounds; Negative Wheezes
Cardiac: Regular Rhythm and S1/S2
GI: Soft and Nontender
Genito-urinary: No Costovertebral Tender
Musculoskeletal: No Edema
Neuro: AO x 3
Hematologic / Lymphatic: No Lymphadenopathy
Psych: Calm
Data Reviewed
-
Total Time Spent with Patient (in minutes): 41
Labs: Labs Reviewed by me
--- NOTE | 2024-08-14 09:46 | CM ---
Addendum entered by Tiny Fuentes RN 08/14/24 12:42:
Phone call message from [facility] x [phone]; patient was cleared for [facility], beginning 08-27 (after rehab), however they are requesting Total Core Hepatitis B Antibody test---> message to Jordi Jackson & Jimi.
Flow Sheets Faxed to [facility] (fax [phone]).
Spoke with nurse Francie; patient more alert/oriented today.
Met with patient and while patient receiving HD; patient awake and able to say hello. updated that [facility] and she agrees to the MWF shift 2 opening with 10:30am start time (10am start time on the first day).
Plan fax Total Core Hepatitis B Antibody test result to [facility]
Plan discharge to rehab facility with [facility].
Plan follow up with [facility] for acceptance.
Addendum entered by Tiny Fuentes RN 08/14/24 11:04:
Received call from Nico Boyce [facility] [place] ([phone]); she will review the referral.
Original Note:
Patient with Hx colorectal cancer with Dx HF who was extubated 08/08, ARF with new HD. BiPAP HS. PT/OT recommend skilled rehab. Seen by wound care nurse. Seen by for dysphagia. Per nurse; confused, garbled speech. Physiatry Consult pending.
Spoke with [facility] Lopez; they have assigned the patient to [facility] MWF 6am.
Spoke with [facility]; they have no available beds at this time but will consider the patient.
Spoke with Adriana; provided update that [facility] has no beds but will consider, and are awaiting response from [facility] [place].
Offered to make HD referral closer to home - prefers referral to [facility], and prefers MWF midmorning start time.
Spoke with [facility]; initiated referral for [facility]- they have a MWF shift 2 opening (10-11am start time). Referral # [id number]. Clinical info can be faxed to [phone]---> sent via [employer].
Phone call to [facility]; request review and response to referral.
Plan follow up with [facility].
Plan follow up with [facility] for outpatient HD.
--- NOTE | 2024-08-14 11:55 | W.PN.CARDCBS ---
Addendum entered and electronically signed by Asif Ramires MD 08/14/24 19:18:
64-year-old man, diagnosed with colon cancer in June, therapy not yet started, possible pulmonary metastasis, admitted with atrial fibrillation and progressed to multisystem organ failure with ventilator dependent Staph aureus pneumonia, CHRISS
progressing to hemodialysis, shock liver, encephalopathy, and persistent atrial fibrillation with marginally controlled heart rates. Currently slowly improving, beginning physical therapy, off ventilator, still with relatively rapid heart rate
Medications: Rosuvastatin 10 mg a day, IV pantoprazole, metoprolol tartrate 75 Q6 and insulin
131/59, pulse 99, respiratory 33, sats 96% weight is 122.8 kg yesterday, not weighed today, on August 12 weight was 125 kg
Chest x-ray August 11, still hazy increased vascularity in lungs, cardiomegaly
White count is 12.4, hemoglobin is 8.8, platelets are 191, creatinine is 8.1, BUN is 107, CO2 is 18, AST is 229, ALT is 103
Echo : EF 55-60%, mild to moderate MR, MAC, mild aortic regurgitation, mild tricuspid regurgitation, pulmonary pressure 54
Impression:
MSOF (resp failure, CHF, liver failure, renal failure)
Recent diagnosis paroxysmal atrial fibrillation with recurrent AFib with RVR
GI bleeding
Hypotension previously requiring pressors
CHRISS (likely as a consequence of hypotension, possibly from septic shock versus cardiogenic shock or combination of both)
Acute hypoxic respiratory failure requiring intubation 07/31/24
Liver failure (likely as a consequence of hypotension, possibly from septic shock versus cardiogenic shock or combination of both)
Fever
Sepsis, s aureus PNA, possible S aureus bacteremia
Acute diastolic CHF
Colorectal cancer, suspected metastatic, diagnosed 06/22/2024, not yet started on therapy
Pulmonary nodule with concern for metastasis, scheduled for lung biopsy 08/03
Hypertension
Hyperlipidemia
Obstructive sleep apnea
Obesity
Edema
Plan:
He is modestly improved, currently on hemodialysis. Still volume overloaded, defer to nephrology regarding best way to achieve dry weight.
Atrial fibrillation is reasonably controlled, but rate is still somewhat rapid. Will transition metoprolol tart trait to metoprolol succinate.
He remains a poor candidate for anticoagulation at this time
Antibiotics per ID
Plans for management of colon cancer with possible pulmonary mets remain on hold.
Original Note:
Today's Communication / Plan
-
transition lopressor to toprol
not OAC candidate
volume removal through HD
Impression / Plan
-
Primary Environmental Projects Advisor: Dr. Hiren Vicente
Impression:
MSOF (resp failure, CHF, liver failure, renal failure)
Recent diagnosis paroxysmal atrial fibrillation with recurrent AFib with RVR
GI bleeding
Hypotension previously requiring pressors
CHRISS (likely as a consequence of hypotension, possibly from septic shock versus cardiogenic shock or combination of both)
Acute hypoxic respiratory failure requiring intubation 07/31/24
Liver failure (likely as a consequence of hypotension, possibly from septic shock versus cardiogenic shock or combination of both)
Fever
Sepsis, s aureus PNA, possible S aureus bacteremia
Acute diastolic CHF
Colorectal cancer, suspected metastatic, diagnosed 06/22/2024, not yet started on therapy
Pulmonary nodule with concern for metastasis, scheduled for lung biopsy 08/03
Hypertension
Hyperlipidemia
Obstructive sleep apnea
Obesity
Edema
ECHO 07/31/24: Normal LV function. LVEF is 55-60%. No wall motion abnormality. Top normal right ventricular size with normal RV function. Mild AI and mild TR. Estimated pulmonary artery pressure of 38 mmHg
Plan:
-Presented MSOF (resp failure, CHF, liver failure, renal failure), shock, sepsis, lactic acidosis, but is recovering. He is now extubated
-continue abx per ID
-he was started on HD this admission, continue volume mgmt through HD
-remains in afib with HRs ~100BPM. will transition lopressor to toprol. Blood pressure is acceptable.
-not felt to be present OAC candidate due to being high risk for recurrent GI bleeding per GI. In the future once stabilizes and if able to tolerate short-term oral anticoagulation could consider Watchman device. He is [id number] score of 1
(hypertension) but does have diagnosis of cancer.
-echo with preserved EF this admission.
-statin remains on hold. follow LFTs
HPI:
64-year-old man with recently diagnosed colorectal cancer with possible lung metastasis and recent diagnosis of atrial fibrillation who presented with lightheadedness and dizziness after starting oral metoprolol as an outpatient and presented to
[place] emergency department for further management. After being found to have CHRISS and anemia he was admitted for further management. Unfortunately developed increased work of breathing this morning, became tachycardic and was found to be
febrile. Did not clinically improve with BiPAP and he was subsequently intubated and transferred to the medical ICU for further management. Currently being treated with broad-spectrum antibiotics and requiring pressor support.
Seen in the outpatient cardiology office 07/26/24 and was in AF with a rapid ventricular rate of 130 bpm. At that visit he had yet to initiate Toprol-XL which was ordered by his primary care physician. At that office visit he agreed to initiate
Toprol-XL 25 mg daily for rate control with plan to defer recommendations regarding rhythm control until he was adequately anticoagulated (atrial fibrillation of unknown duration) and to allow for intermittent interruption of anticoagulation for
planned upcoming procedures regarding his recently diagnosed colorectal cancer with likely pulmonary metastases (bronchoscopy, port placement, colorectal surgery). Eliquis 5 mg twice daily was also initiated on 07/26/24..
Cardiology is consulted for possible heart failure as a cause of his respiratory decompensation. proBNP was mildly elevated (3210), it is possible there is some component of heart failure with preserved ejection fraction.
On presentation to the emergency department 07/30/24, he was in atrial fibrillation with reasonably controlled ventricular rate of 105 bpm. EKG of July 31, 2024 finds sinus rhythm at 77 bpm.
Progress Note - Environmental Projects Advisor
Subjective
Date of Service: August 14, 2024
no complaints of CP, SOB, palpitations
Objective
Labs:
08/14/24 05:48
08/14/24 05:48
Labs
Hgb 8.8 g/dL (13.0-18.0) L 08/14/24 05:48
Hct 26.8 % (39.0-52.0) L 08/14/24 05:48
Plt Count 191 10^3/uL (130-400) 08/14/24 05:48
PT 19.5 Sec (11.4-14.6) H 08/07/24 11:27
INR 1.62 08/07/24 11:27
APTT 54.9 Sec (23.4-35.0) H 08/07/24 11:27
Sodium 143 mmol/L (135-145) 08/14/24 05:48
Potassium 4.2 mmol/L (3.5-5.1) 08/14/24 05:48
BUN 107 mg/dl (9-20) H* 08/14/24 05:48
Creatinine 8.1 mg/dL (0.7-1.3) H* 08/14/24 05:48
Glucose 122 mg/dl (70-99) H 08/14/24 05:48
Vital Signs and I&O:
Vital Signs
Temp Pulse Resp BP Pulse Ox
99.2 F 99 33 131/59 96
08/14/24 03:00 08/14/24 10:00 08/14/24 10:00 08/14/24 10:00 08/14/24 10:00
Vital Signs
Temp Pulse Resp BP Pulse Ox
99.2 F 99 33 131/59 96
08/14/24 03:00 08/14/24 10:00 08/14/24 10:00 08/14/24 10:00 08/14/24 10:00
Intake & Output
08/12/24 08/13/24 08/14/24 08/15/24
07:59 07:59 07:59 07:59
Intake Total 100 / 100
Output Total 0 / 0 0 / 0
Balance 100 / 100 0 / 0
Physical Exam
Physical Exam
GEN: No distress, awake, alert, oriented x3. obese. on supp O2
HEENT: supple, anicteric, mmm, eomi
LUNGS: CTA anterolaterally, no wheezes
CV: Irreg, S1/S2, 1/6 murmur
ABD: soft, BS+, NT/ND
EXT: No cyanosis, clubbing, edema
NEURO: Gross non-focal
SKIN: Warm, pink, dry. No rash. LUE PICC
[2024-08-14] MEDS: MANNITOL 25% 12.5 GRAMS IV (12:31)
[2024-08-14] MEDS: RETACRIT 10000 UNITS IV (12:32)
[2024-08-14] MEDS: LOPRESSOR PO (13:01)
[2024-08-14 13:41] LABS: Glucose - Point of Care 136 mg/dl (70-99)
--- NOTE | 2024-08-14 13:56 | W.PN.NEPH.HD ---
Assessment
-
Hepatitis core antibody ordered as per request of [facility] unit
Patient seen on dialysis
Systolic blood pressure around 106 at 2 kg u/f
Progress Note - Hemodialysis
-
Date of Service: August 14, 2024
Duration: 30 minutes and 3 hours
Potassium Bath: 3
Calcium Bath: 2.5
Opti-Dialyzer: 160
Ultrafiltration: Other (2kg)
Blood Flow: 400
Dialysate Flow: 600
Heparin: none
EPO: 10,000
[2024-08-14] MEDS: FLUSH (NSS) 1 FLUSH INTRACATH (15:50)
[2024-08-14 16:43] LABS: Hepatitis B Core Ab, Total Negative (Negative)
[2024-08-14 17:30] LABS: Glucose - Point of Care 130 mg/dl (70-99)
[2024-08-14] MEDS: TOPROL XL 200 MG PO (21:17)
[2024-08-14 21:57] LABS: Glucose - Point of Care 119 mg/dl (70-99)
--- NOTE | 2024-08-14 23:16 | PTCARENOTE ---
Assumed care of patient from previous RN. Patient is Aox2, confused about time. Garbled speech and flat affect. Afib on monitor. Incontinent of bowl, hygiene and bed changed . HD cath in right chest and Left midline. Patient is resting in bed with
call lubin in reach. Assessment and VS as documented.
[2024-08-15] VITALS (90 sets, daily range): BP systolic 39–158; BP diastolic 21–98; PULSE 3; BMI 37.9
[2024-08-15 04:22] LABS: Glucose - Point of Care 122 mg/dl (70-99)
[2024-08-15 04:25] LABS: B.E. -2.8 mmol/L; HCO3 21.8 mmol/L (21-28); O2 Saturation % 96.9 % (94-98); PCO2 36 mmHg (35-48); PO2 85 mmHg (83-108); pH 7.39 (7.35-7.45)
[2024-08-15 04:27] LABS: O2 Therapy BIPAP
[2024-08-15] MEDS: NSS (PRESERVATIVE FREE) 0.5 ML IV (04:44)
[2024-08-15] MEDS: ATIVAN 1 MG IV (04:44)
--- NOTE | 2024-08-15 04:47 | W.PN.UPDATE ---
Update Note
Progress Note Update
AND DRYING SUPERVISOR COOKING CASING
Patient is diaphoretic, difficult of breathing, using accessory muscles. SPO2 94% on bipap. BP 136/63, hr 115, RR 32
Stat abg, chest x-ray, EKG, Procalcitonin, cbc, bmp, mag, troponin, covid, flu, and blood cultures.
called as the patient is declining and she is coming.
Will transfer the patient to ICU, discussed with clutch specialist
[2024-08-15 04:51] LABS: COVID-19 Antigen Negative (Negative)
--- NOTE | 2024-08-15 05:01 | RR ---
A Rapid Response was called on this patient, please see Rapid Response form.
Found patient in respiratory distress while on bipap, diaphoretic, alert but in apparent respiratory distress. SPO2 was 93% on bipap, RR 30a, HR 120s, increased work of breathing. Rapid response called. CXR, ABG, labs, ekg and meds given. Decision
to transer to [facility] made. Report called to [facility] RN. Patient transferred via, all belongings brought with patient.
--- NOTE | 2024-08-15 05:03 | TRANSFER ---
pt recieved from IMU s/p rapid. On BIPAP in respiratory distress 34-[address] on [address] in, LAUNDRY SUPERINTENDENT and her to have conversation about intubation. afib on monitor hr 110s. Pt confused only alert to self
[2024-08-15 05:11] LABS: Troponin I 0.161 ng/ml
[2024-08-15 05:17] LABS: Hematocrit 30.5 % (39.0-52.0); Hemoglobin 9.6 g/dL (13.0-18.0); Mean Corp Hgb Conc. 31.5 g/dL (33.0-37.0); Mean Corpuscular Hgb 28.6 pg (27.0-31.0); Mean Corpuscular Volume 90.8 fL (80.0-94.0); Platelet Count 205 10^3/uL (130-400); Red Blood Cell Count 3.36 10^6/uL (4.70-6.10); White Blood Cell Count 15.2 10^3/uL (4.8-10.8)
[2024-08-15 05:36] LABS: Blood Urea Nitrogen 79 mg/dl (9-20); Calcium 7.7 mg/dl (8.4-10.2); Carbon Dioxide 19 mmol/L (22-30); Chloride 103 mmol/L (98-107); Estimated Creatinine Clearance 17 ml/min; Glucose 123 mg/dl (70-99); Magnesium 2.3 mg/dl (1.6-2.3); Potassium 4.3 mmol/L (3.5-5.1); Sodium 139 mmol/L (135-145); eGFR 10.11
--- NOTE | 2024-08-15 06:14 | W.PN.ANESINT ---
Anesthesia Intubation Note
- Intubation Note
Intubation Note:
Diagnosis: acute respiratory failure
Blade: mac 4
Tube Size: 8.0
Depth: 22
Side Taped:
Drugs Used: propofol 50mg, succ 100mg, phenylephrine 100mcg
Grade View: 2
EtCO2 Present: yes
Atraumatic: slight upper gum/dental bleeding
Attempts: 1
Insertion Start and Stop Time: 4811-0942
SaO2 Pre: 95
SaO2 Post: 96
Glidescope Used: yes
Other Airway Adjustments:
Pre-Oxygenated: yes
Portable Chest X-Ray:
RSI:
Suctioned:
Bilateral Breath Sounds Confirmed: yes
Vent Settings:
Settings per _x__Attending Physician
[2024-08-15] MEDS: SUBLIMAZE 50 MCG IV ×3 (06:32→22:56)
--- NOTE | 2024-08-15 06:38 | W.PN.UPDATE ---
Update Note
Progress Note Update
Overnight went into acute respiratory failure in IMU, poor breathing mechanics (RR 30 to 40 and belly breathing) and diaphoretic with minimum improvement with bipap. �Long discussion on reintubating, she decided on intubating him and giving him
few days and if no improvement will consider comfort. �Patient now is a limited DNR (no cpr/shock).�
--- NOTE | 2024-08-15 07:05 | PTCARENOTE ---
Addendum entered by Ashish Mackey RN 08/15/24 07:09:
[place] sump inserted in R nare confirmed by ausculation and return of stomach contents
Original Note:
after long conversation between INTERNAL CONTROLS CONSULTANT and , decided to reintubate, however limited DNR now no CPR no shocking. Intubated by anesthesia with 8.0 tube at 0600. Vent settings 550 14 5 100 percent. Started on fentanyl 50 for sedation, levo started at 2
for BP. INTERNAL CONTROLS CONSULTANT to insert A line.
--- NOTE | 2024-08-15 07:51 | W.PN.UPDATE ---
Update Note
Progress Note Update
Procedure Note: Arterial Line�
� Left Wrist Arrow 20 (09/11)�
Diagnosis:�Acute hypoxic respiratory failure
IV Line Comments: Uneventful Procedure�
Chato's test completed pre-procedure: Yes�
A-Line Comments: Sterile technique as per standard protocol, Ultrasound guided insertion�
Functioning A-line in situ: Yes�
A-line Insertion Start Time:��719
A-line in at:��0725
[2024-08-15] MEDS: LEVOPHED 250 IV ×3 (08:05→14:45)
[2024-08-15] MEDS: DIPRIVAN 100 IV ×3 (08:05→21:09)
[2024-08-15] MEDS: SUBLIMAZE 100 IV ×2 (08:06→21:06)
[2024-08-15 08:34] LABS: Triglycerides 264 mg/dl (10-149)
[2024-08-15 08:39] LABS: PCO2 38 mmHg (35-48); PO2 256 mmHg (83-108); pH 7.37 (7.35-7.45)
[2024-08-15] MEDS: NOVOLOG FLEXPEN-MODERATE RESISTANCE SC ×2 (08:47→17:03)
[2024-08-15] MEDS: TOPROL XL PO (09:12)
--- NOTE | 2024-08-15 09:23 | W.PN.ID1 ---
Date of Service
Date of Service: August 15, 2024
Today's Communication
- procalcitonin was elevated with crcl13 - not interpretable
- ua
- c/w zoysn
- added oral vanc via NGT
Assessment / Plan
S aureus (MSSA) Pneumonia
Resolved shock - resolved
Strep salivarius bacteremia x 2 sets drawn at the same time - most likely contaminant
CHRISS on HD
Class III Obesity
Colorectal Adenocarcinoma - not yet on treatment
Psoriatic Arthritis - currently off of Enbrel since ~05/03
- procalcitonin was elevated with crcl13 - not interpretable
- blood cultures x2 in progress
- CXR resolved bibasilar atelectasis
- covid and influenza negative 08/15
- send UA
- note colonization with C difficile
- oral vancomycin via NGT
- agree with zosyn
- follow clinically
Chief Complaint
-: Pneumonia (S aureus), Bacteremia (streptococcus) and Other (shock)
Subjective / Review of Systems
decompensated overnight
discussed with hospitalist and will reassess
afebrile
now on norepi 2 mcg/min and vaso
increasing wbc count
hgb stable
plt normal
covid ag negative, flu negative
CXR today - resolved bibasilar atelectasis
colonized with C diff but without active toxin production on 08/13
last recorded stool - loose watery
Vital Signs / Physical Exam
Vital Signs
Vital Signs
Temp Pulse Resp BP Pulse Ox
97.8 F 98 14 71/28 100
08/15/24 08:00 08/15/24 08:00 08/15/24 08:00 08/15/24 08:00 08/15/24 09:03
Objective Data
Lab Data
Lab Results
08/15/24 04:18
08/15/24 04:18
PT 19.5 Sec (11.4-14.6) H 08/07/24 11:27
INR 1.62 08/07/24 11:27
APTT 54.9 Sec (23.4-35.0) H 08/07/24 11:27
Estimated Creat Clear 17 ml/min 08/15/24 04:18
Lactic Acid 1.7 mmol/L (0.7-2.0) 08/06/24 03:26
Total Bilirubin 4.1 mg/dl (0.2-1.3) H 08/14/24 05:48
AST 229 U/L (17-59) H 08/14/24 05:48
ALT 103 U/L (0-50) H 08/14/24 05:48
Alkaline Phosphatase 340 U/L (38-126) H 08/14/24 05:48
Most recent labs reviewed.
Micro Results:
08/15/24 04:21 Influenza Types A & B (KHANG) - Final
Nasal Swab Negative for Influenza A & B, NAAT
Negative results must be combined with clinical observations
and patient history.
Nucleic Acid Amplification test (NAAT)performed on the
[employer] platform.
08/15/24 04:30 Blood Culture - Pending
Blood/Venous
08/15/24 04:30 Blood Culture - Pending
Blood/Venous
08/13/24 05:31 Salmonella/Shigella Culture - Preliminary
Feces/Stool Culture in Progress
Campylobacter Culture - Preliminary
Culture in Progress
Shiga Toxin Test - Pending
Stool Leukocytes - Final
08/13/24 05:31 C. difficile GDH Antigen & Toxins - Final
Feces/Stool C. difficile antigen positive, toxin negative.
Clostridium difficile present, but toxin not detected.
Patient may be a carrier, colonized with nontoxinogenic
strain or the level of toxin in sample is below detection
limits. This information should be used in conjunction with
the patient's clinical history.
- Final
Negative for Norovirus GI and GII.
08/07/24 11:39 Blood Culture - Final
Blood/Venous No Growth - Final Report
08/07/24 11:27 Blood Culture - Final
Blood/Venous No Growth - Final Report
08/07/24 10:52 Respiratory Culture - Final
Sputum NO GROWTH
Gram Stain - Final
08/03/24 03:28 Blood Culture - Final
Blood/Venous No Growth - Final Report
08/03/24 03:41 Blood Culture - Final
Blood/Venous No Growth - Final Report
08/01/24 18:19 Blood Culture - Final
Blood/Venous No Growth - Final Report
08/01/24 15:36 Blood Culture - Final
Blood/Venous No Growth - Final Report
07/31/24 12:18 Respiratory Culture - Final
Endotracheal S aureus-Methicillin Sensitive
Gram Stain - Final
07/31/24 07:54 Blood Culture - Final
Blood/Venous Streptococcus salivarius
Gram Stain - Final
07/31/24 07:54 Blood Culture - Final
Blood/Venous Streptococcus salivarius
Gram Stain - Final
07/31/24 11:49 Legionella Urinary Antigen - Final
Urine Negative for Legionella pneumophila Serogroup 1 antigen.
A negative result does not rule out the possiblity of
Legionella infection due to other serogroups or species of
Legionella. Clinical correlation is recommended.
Streptococcus pneumoniae Antigen (M - Final
Negative for Streptococcus pneumoniae antigen.
A negative result does not exclude infection with
Streptococcus pneumoniae. Clinical correlation is
recommended.
07/31/24 12:18 Nasal Screen MRSA (PCR) - Final
Nose MRSA not detected - performed by PCR methodology.
07/31/24 08:10 Influenza Types A & B (KHANG) - Final
Nasal Swab Negative for Influenza A & B, NAAT
Negative results must be combined with clinical observations
and patient history.
Nucleic Acid Amplification test (NAAT)performed on the
[employer] platform.
08/04/24 CXR: Moderate pulmonary edema, without significant change.
Care Review
Plan reviewed with: Nurse
--- NOTE | 2024-08-15 10:00 | PTCARENOTE ---
Patient received from shift supervisor film processing in bed, intubated, sedated. Afib via cm, SaO2 @ 100% on ventilator, FiO2 100%. LUE midline. ICU QUARTZ MOUNTER at bedside for arterial line placement. Yemi albert to WS, scant drainage. Levophed, Fentanyl infusing - see
work list interventions for infusion rates and titrations. Dino Mccrary to bedside, updated to status - orders given, updated. See work list for full assessment and interventions performed.
[2024-08-15] MEDS: PROTONIX IV 40 MG IV (10:04)
[2024-08-15] MEDS: NSS (PRESERVATIVE FREE) 10 ML IV (10:04)
--- NOTE | 2024-08-15 10:07 | VATNOTE ---
Per radiology report, PICC tip placement in the distal SVC. OK to use, primary RN notified.
--- NOTE | 2024-08-15 10:07 | W.PN.CARDCBS ---
Addendum entered and electronically signed by Zane Matson DO 08/15/24 11:37:
I saw and examined the patient.
The Senior Economist's note was reviewed and I agree with the note.
Comment:
Plan:
Cont Levophed and Vasopressin for bp support.
Persistent aFib with adequate HR control off beta nirav for now to give room for bp.
Not felt to be an anticoagulation candidate presently.
Cont HD for volume management
Cont pulm toilet for VDRF
Discussed with nursing and at bedside
Original Note:
Today's Communication / Plan
-
reintubated overnight
continue pressors as needed
Impression / Plan
-
Primary Welcome Wagon Host/Hostess: Dr. Hiren Vicente
Impression:
MSOF (resp failure, CHF, liver failure, renal failure)
Recent diagnosis paroxysmal atrial fibrillation with recurrent AFib with RVR
GI bleeding
Hypotension previously requiring pressors
CHRISS (likely as a consequence of hypotension, possibly from septic shock versus cardiogenic shock or combination of both)
Acute hypoxic respiratory failure requiring intubation 07/31/24
Liver failure (likely as a consequence of hypotension, possibly from septic shock versus cardiogenic shock or combination of both)
Fever
Sepsis, s aureus PNA, possible S aureus bacteremia
Acute diastolic CHF
Colorectal cancer, suspected metastatic, diagnosed 06/22/2024, not yet started on therapy
Pulmonary nodule with concern for metastasis, scheduled for lung biopsy 08/03
Hypertension
Hyperlipidemia
Obstructive sleep apnea
Obesity
Edema
ECHO 07/31/24: Normal LV function. LVEF is 55-60%. No wall motion abnormality. Top normal right ventricular size with normal RV function. Mild AI and mild TR. Estimated pulmonary artery pressure of 38 mmHg
Plan:
-Presented MSOF (resp failure, CHF, liver failure, renal failure), shock, sepsis, lactic acidosis
-unfortunately needed to be re-intubated overnight due to increased work of breathing
-he was started on HD this admission, continue volume mgmt as able through HD
-checking LE US to rule out DVT
-also on levo which is being uptitrated, currently at 18. BB placed on hold
-remains in persistent afib with HRs ~100BPM. follow on tele
-not felt to be present OAC candidate due to being high risk for recurrent GI bleeding per GI. He is [id number] score of 1 (hypertension) but does have diagnosis of cancer. once recovered, could consider candidacy for watchman
-echo with preserved EF this admission.
-limited DNR code status (no CPR/shock)
-d/w nursing
HPI:
64-year-old man with recently diagnosed colorectal cancer with possible lung metastasis and recent diagnosis of atrial fibrillation who presented with lightheadedness and dizziness after starting oral metoprolol as an outpatient and presented to
[place] emergency department for further management. After being found to have CHRISS and anemia he was admitted for further management. Unfortunately developed increased work of breathing this morning, became tachycardic and was found to be
febrile. Did not clinically improve with BiPAP and he was subsequently intubated and transferred to the medical ICU for further management. Currently being treated with broad-spectrum antibiotics and requiring pressor support.
Seen in the outpatient cardiology office 07/26/24 and was in AF with a rapid ventricular rate of 130 bpm. At that visit he had yet to initiate Toprol-XL which was ordered by his primary care physician. At that office visit he agreed to initiate
Toprol-XL 25 mg daily for rate control with plan to defer recommendations regarding rhythm control until he was adequately anticoagulated (atrial fibrillation of unknown duration) and to allow for intermittent interruption of anticoagulation for
planned upcoming procedures regarding his recently diagnosed colorectal cancer with likely pulmonary metastases (bronchoscopy, port placement, colorectal surgery). Eliquis 5 mg twice daily was also initiated on 07/26/24..
Cardiology is consulted for possible heart failure as a cause of his respiratory decompensation. proBNP was mildly elevated (3210), it is possible there is some component of heart failure with preserved ejection fraction.
On presentation to the emergency department 07/30/24, he was in atrial fibrillation with reasonably controlled ventricular rate of 105 bpm. EKG of July 31, 2024 finds sinus rhythm at 77 bpm.
Progress Note - Welcome Wagon Host/Hostess
Subjective
Date of Service: August 15, 2024
intubated, sedated
Objective
Labs:
08/15/24 04:18
08/15/24 04:18
Labs
Hgb 9.6 g/dL (13.0-18.0) L 08/15/24 04:18
Hct 30.5 % (39.0-52.0) L 08/15/24 04:18
Plt Count 205 10^3/uL (130-400) 08/15/24 04:18
PT 19.5 Sec (11.4-14.6) H 08/07/24 11:27
INR 1.62 08/07/24 11:27
APTT 54.9 Sec (23.4-35.0) H 08/07/24 11:27
Sodium 139 mmol/L (135-145) 08/15/24 04:18
Potassium 4.3 mmol/L (3.5-5.1) 08/15/24 04:18
BUN 79 mg/dl (9-20) H 08/15/24 04:18
Creatinine 5.9 mg/dL (0.7-1.3) H* 08/15/24 04:18
Glucose 123 mg/dl (70-99) H 08/15/24 04:18
Troponins
08/15/24
04:18
Troponin I 0.161 H*
Vital Signs and I&O:
Vital Signs
Temp Pulse Resp BP Pulse Ox
97.8 F 99 0 95/38 100
08/15/24 08:00 08/15/24 10:00 08/15/24 10:00 08/15/24 08:45 08/15/24 10:00
Vital Signs
Temp Pulse Resp BP Pulse Ox
97.8 F 99 0 95/38 100
08/15/24 08:00 08/15/24 10:00 08/15/24 10:00 08/15/24 08:45 08/15/24 10:00
Intake & Output
08/13/24 08/14/24 08/15/24 08/16/24
07:59 07:59 07:59 07:59
Intake Total 107.3 / 107.3
Output Total 0 / 0
Balance 0 / 0 107.3 / 107.3
Physical Exam
Physical Exam
GEN: No distress, intubated, sedated
HEENT: supple, mmm
LUNGS: Decreased BS, no wheezes
CV: Irreg, S1/S2, no murmur
EXT: No cyanosis, clubbing. trace edema of B/L LE
NEURO: sedated
SKIN: Warm, pink, dry. No rash
[2024-08-15] MEDS: ZOSYN 50 IV ×2 (10:21→17:39)
[2024-08-15] MEDS: PITRESSIN 100 IV ×2 (10:23→16:58)
--- NOTE | 2024-08-15 11:20 | WOUNDNOTE ---
DOMINIQUE RN NOTE: Followed up today as requested by nursing for worsening sacral ulcer. Received patient intubated on lateral rotation air mattress with turning schedule. Sacrum/gluteal cleft appears unstageable, layer of balderas-edouard slough covering base.
Suspect stage 3 or stage 4 PI underneath. Distally toward rectum has partial thickness excoriated skin from suspected diarrhea. Nurse states he had one stool this morning since being transferred to unit. Not a candidate for internal fecal environmental services project manager
per nurse, too thick. Adaptic, abd pad and paper tape applied. Will order Santyl for ulcer to start tomorrow and recommended to Dr. Nicholas surgical consult if appropriate at this time. TruVue lite boots in use, heels dry and cracked, moisturized. b/l
johansen abrasions nearly healed. R medial great toe with linear small red line, no drainage. Z flow pad on chair, instructed nurse how to use when in bed, will do next time turning. Repositioned patient onto L semi side lying position. at bedside,
updated on worsening ulcer, treatment plan, importance of offloading and nutrition in healing. Recommend following up with [facility] in future. states he will eventually go to Rehab when discharged. Will update discharge instructions to include
air mattress at facility and offloading cushion for chair. aware can take Z flow pad and heel boots upon discharge to another facility. Updated nurse, care plan and will follow as needed.
[2024-08-15 11:54] LABS: Glucose - Point of Care 174 mg/dl (70-99)
--- NOTE | 2024-08-15 11:55 | W.PN.HOSP.TC ---
Today's Communication/Plan
-
Monitor vital signs see plan
Currently intubated, wean vent as tolerated
Currently on Levophed, wean sedation as tolerated
On sedation
Panculture
Venous Doppler
Empiric antibiotic
ID evaluation
Discussed with spouse at bedside
Assessment / Plan
Assessment / Plan
Mr. Иван Redd is a 64-year-old man with a past medical history of recently diagnosed colorectal cancer, persistent atrial fibrillation, essential hypertension who presents to the ER with dizziness. Patient reports feeling unwell for the last
2 days. He was recently started on metoprolol and Eliquis for atrial fibrillation. Overnight admission patient developed acute respiratory failure in setting of high fever with finding MSSA in blood and sputum; development of renal failure
requiring CRRT.
Assessment:
Acute Respiratory Failure requiring intubation
MSSA Bacteremia and Pneumonia
Septic Shock
Acute Renal Failure with acute HFpEF (pulm edema)
Hyperkalemia
Lactic Acidosis
Non-Ischemic Myocardial Injury
-s/p intubation morning of 07/31 during rapid response; extubated 08/08 to BIPAP (now just BIPAP is nocturnal). on Room air
-initial concern for flash pulmonary edema given acute SOB, CXR read and patient had been receiving IVF. IV lasix given without significant output and worsening renal function; renal consulted and patient initiated on CRRT on 08/01 given worsening
renal function, essentially no urine output and hyperkalemia. CRRT now stopped and now on HD via tunneled cath. HD schedule per Nephrology.
-08/01: culture results showing MSSA in Sputum and Blood
-TTE results above - no vegetation
-completed Unasyn course
-off pressors
-off sedation
-Linux Kernel Developer Consult appreciated
-Cardiology consult appreciated
-Nephrology consult appreciated
08/15/2024 morning, patient started having increased work of breathing and could not tolerate BiPAP. Now intubated. Linux Kernel Developer following. Wean vent as tolerated. Currently on propofol, wean sedation as tolerated
Appears to be in septic shock. Currently on Levophed, wean pressors.
Unclear if there was any aspiration event, given worsening leukocytosis and intubation. Will put on empiric Zosyn for now. ID consulted
Blood culture pending
Fluid negative
Agree with venous Doppler
Acute lower GI bleed (exacerbated by IV heparin)
Known history of colorectal Adenocarcinoma with possible lung mets
- s/p CTA without active bleeding source. No role for IR intervention. Source felt be related to known colon masses, although diverticular disease or AVMs possible.
- was previously Scheduled for lung biopsy as outpatient
- patient had not yet started chemotherapy
- GI following
Persistent Atrial Fibrillation
- off anticoagulation with active bleed episode; family aware of stroke risk
- continue Metoprolol per Cardiology
TME from multifactorial
-critical illness, recent sedation
-monitor mentation
-CTH negative 08/08
-s/p VSE /; now on dysphagia diet. ongoing speech evals.
Constipation
- bowel regimen prn
Essential Hypertension
- hold HOSIERY OPERATOR Olmesartan-HCTZ
Hold metoprolol
Hyperlipidemia
- hold rosuvastatin
acute Thrombocytopenia
- HIT panel negative
Monitor
sacral/buttocks DTI, skin purple (blanchable and non blanchable).
- new in hospital
- fecal management system placement attempted, unable to stay in per RN
- wound care service following
DVT ppx: SCDs
Code: Limited DNR, discussed with spouse
General: Intubated
HEENT: Normocephalic and Atraumatic
Respiratory: Ventilated breath sounds
Cardiac: irregular Rhythm and S1/S2
GI: Soft and Nontender
Genito-urinary: No Costovertebral Tender
Musculoskeletal: No Edema
Neuro: Sedated
Psych: Calm
I spent a total of 54 minutes with the patient or on the floor. More than 50% of this time involved counseling and coordination of care.
Anticipated Discharge: > 48 hours
Subjective/Interval History
-
Date of Service: August 15, 2024
Intubated this morning
Objective Data
-
Labs:
Laboratory Results
08/15/24 08/15/24 08/15/24
04:16 04:18 08:02
WBC Cancelled 15.2 H
Hgb Cancelled 9.6 L
Hct Cancelled 30.5 L
Plt Count Cancelled 205
HCO3 21.8 Cancelled
Sodium 139
Potassium 4.3
Chloride 103
Carbon Dioxide 19 L
BUN 79 H
Creatinine 5.9 H*
Glucose 123 H
Calcium 7.7 L
08/15/24
08:24
WBC
Hgb
Hct
Plt Count
HCO3 22.0
Sodium
Potassium
Chloride
Carbon Dioxide
BUN
Creatinine
Glucose
Calcium
Vital Signs:
Vital Signs
Temp Pulse Resp BP Pulse Ox
97.8 F 96 13 129/42 100
08/15/24 08:00 08/15/24 11:30 08/15/24 11:30 08/15/24 11:30 08/15/24 11:30
I&O
08/14/24 08/15/24 08/16/24
06:59 06:59 06:59
Intake Total 286.5 / 286.5
Balance 286.5 / 286.5
--- NOTE | 2024-08-15 12:44 | PTCARENOTE ---
FiO2 weaned. Ultrasound at bedside for doppler LE. remains at bedside.
[2024-08-15] MEDS: NOVOLOG FLEXPEN-MODERATE RESISTANCE 1 UNITS SC ×2 (12:46→17:39)
--- NOTE | 2024-08-15 13:58 | W.PN.NEPH.PH ---
Today's Communication / Plan
-
cont supportive care
no HD needs today
Assessment/Plan
-
64-year-old man with recently diagnosed colorectal cancer with possible lung metastasis and recent diagnosis of atrial fibrillation who presented with lightheadedness and dizziness after starting oral metoprolol as an outpatient and presented to
[place] emergency department. He presented in acute kidney injury admitted to the floors upgraded to the ICU for increased work of breathing ultimately intubated in the ICU with hyperkalemia.
Patient is critically ill on pressor support essentially anuric.
Positive blood cultures pending organism. Staph aureus sputum culture.
Renal consult for acute kidney injury and hyperkalemia
Impression.
Acute kidney injury and hyperkalemia secondary to septic shock.
Colorectal cancer newly diagnosed June 2024 with possible lung metastasis
Atrial fibrillation on oral anticoagulation
VDRF
Bacteremia/sepsis
Plan.
NOted events , pt re intubated and on pressors for hypotension
tolerated HD on 08/14
no emergent need today
next HD based on his hemodynamics tomorrow
abx per ID
d/w and nursing
-
-
Date of Service: August 15, 2024
CC / HPI / ROS
-
Chief Complaint:
Septic shock
History of Present Illness:
on RA
Off CRRT, tolerated HD on 08/09 and 08/11, 08/14
Hemoglobin better at 9.6
needed to reintubated and on presssors this am
Review of Systems:.
sedated and intubated
no fever, on 40% FIo2
Labs
-
Labs:
WBC 15.2 10^3/uL (4.8-10.8) H 08/15/24 04:18
RBC 3.36 10^6/uL (4.70-6.10) L 08/15/24 04:18
Hgb 9.6 g/dL (13.0-18.0) L 08/15/24 04:18
Hct 30.5 % (39.0-52.0) L 08/15/24 04:18
Plt Count 205 10^3/uL (130-400) 08/15/24 04:18
Sodium 139 mmol/L (135-145) 08/15/24 04:18
Potassium 4.3 mmol/L (3.5-5.1) 08/15/24 04:18
Chloride 103 mmol/L (98-107) 08/15/24 04:18
Carbon Dioxide 19 mmol/L (22-30) L 08/15/24 04:18
BUN 79 mg/dl (9-20) H 08/15/24 04:18
Creatinine 5.9 mg/dL (0.7-1.3) H* 08/15/24 04:18
eGFR 10.11 08/15/24 04:18
Glucose 123 mg/dl (70-99) H 08/15/24 04:18
Calcium 7.7 mg/dl (8.4-10.2) L 08/15/24 04:18
Phosphorus 4.5 mg/dl (2.5-4.5) 08/08/24 08:31
[id number] Pept 2850 pg/ml 08/06/24 03:26
Albumin 2.8 g/dl (3.5-5.0) L 08/14/24 05:48
Physical Exam
-
Vital Signs:
Vital Signs
Temp Pulse Resp BP Pulse Ox
98.3 F 88 10 146/35 100
08/15/24 12:00 08/15/24 13:15 08/15/24 13:15 08/15/24 13:15 08/15/24 13:15
Cardiovascular:: Regular rate and rhythm
Respiratory:: Bilateral: Coarse
Lung Excursion:: Normal
Abdomen:: Nontender and Soft
Extremity Edema:: +1: Bilateral: (trace)
Alvarez Catheter: No
--- NOTE | 2024-08-15 14:14 | W.PN.INTV ---
Today's Communication / Plan
Recommendations
Continue mechanical ventilation without change
Decrease FiO2
Continue antibiotics per infectious disease
Wait for repeat cultures
Continue dialysis as able
If there is no acute abnormalities will start weaning sedation on 08/16/[address] Sun updated at the bedside 08/15/2024
Assessment
-
Impression
Patient is a 64-year-old male, recently diagnosed with colorectal carcinoma and the disease is presumably advanced, had a lung nodule that was supposed to be biopsied but patient ended up in the ER for dizziness secondary to recent atrial
fibrillation. As his workup was being done in the ER for CHRISS and anemia along with dizziness, patient decompensated, had acute respiratory failure, nonresponsive to nonrebreather mask and noninvasive ventilation, ended up in ICU, rapid response was
called, had to be intubated.
Assessment:
# Acute respiratory failure requiring intubation mechanical ventilation 08/15/2024
-
# Atrial fibrillation with rapid ventricular response - now rate controlled
# Change in mental status - now more alert
#Acute rectal bleeding in the setting of colorectal carcinoma/heparin infusion - now resolved
#Acute respiratory failure - improved and now on room air
#CHRISS now on CRRT - remains on iHD and off CRRT
#Streptococcal bacteremia via BCx from 07/31/2024
#Acute HFpEF exacerbation
#Metabolic acidosis with increased anion gap due to severe CHRISS
#Transaminitis secondary to hypoxic liver
#Hx of HAN
Other chronic medical conditions:
#Metastatic colorectal cancer with suspected lung metastasis (diagnosed via colonoscopy on 06/22/2024 with partially obstructing tumor seen in the rectum 4 cm from the anal verge, invasive low-grade colorectal adenocarcinoma)
#PET avid 2.2 cm right upper lobe nodule originally planned for robotic bronchoscopy on 08/03/2024 (will be deferred for now)
#HAN on auto CPAP
#History of psoriasis previously on Enbrel
#History of hepatitis A
#History of COVID-19 (03/2024)
#Restrictive lung disease (suspected based on spirometry from 05/15/2021, however patient was coughing during testing and post-bronchodilator FVC was WNL at 84% predicted)
Plan:
-
Transfer back to the critical care unit 08/15/2024 after developing overnight increased work of breathing. Failed BiPAP therapy intubated emergently.
-
Acute respiratory failure-intubated on mechanical ventilation
Patient was on mechanical ventilation since 07/31/2024 --> extubated on 08/08/2024
Reintubated 08/15/2024.
Chest x-ray reviewed: ET tube in place, no pneumothorax. Left lower lobe abnormality
Mechanical ventilation settings reviewed-pulmonary mechanics acceptable
Not bronchospastic on exam
AB.30 7/38/256.
Discussed with respiratory therapist decrease FiO2 as able
Rest of the settings continue the same.
-
Continue sedation with fentanyl and propofol for RASS score 0 to -1-
-
Etiology for respiratory failure and increased work of breathing unclear to me.
Not sure if this patient has aspirated and developed some degree of pneumonitis
Lower extremity Dopplers ordered by me 08/15/2024: No evidence for deep venous thrombosis.
Thromboembolic disease less likely, not significantly tachycardic.
-
Patient is in shock requiring Levophed: Rule out sepsis
Continue Levophed/vasopressin also added maintain mean arterial blood pressure 65 mmHg.
Worsening leukocytosis
Afebrile
Infectious disease correspondence reviewed-Zosyn will continue
Oral vancomycin added
Repeat cultures
influenza negative
Recent C. difficile - 08/13/2024
Chest x-ray not impressive for pulmonary source.
-
#Streptococcal salivarious bacteremia
Echo repeated on 08/07/2024-There is no evidence of vegetation or embolic source seen.
New splenic infarct --> Repeat blood cultures have showing NGTD since 07/12/2024
History of MSSA pneumonia.
-
# Atrial fibrillation with rapid ventricular response-rate is controlled
Troponin trending lower 08/15/2024
- Goal HR<110
-Continue with metoprolol 75 mg PO q6hr
Not on anticoagulation due to recent GI bleed and low platelet counts
SYL panel negative from 08/08/2024
Cardiology following-recommendations appreciated
# Change in mental status-apparently he was back to baseline prior to this event.
On 08/08, patient's mental status was altered in terms of responsiveness, CT scan of head was repeated showing no acute intracranial abnormality
On 08/09, patient was agitated/no purposeful movements, platelet counts dropping, history of rectal bleed-ammonia levels checked-less than 9
Currently on sedation 08/15/2024
#Acute rectal bleeding in the setting of colorectal carcinoma/heparin infusion
Patient had bloody bowel movements on 08/06/2024 with roughly 1 L of blood loss
Colorectal surgery consult apprec-CTA negative for active GI bleed
Hemoglobin remained stable around 8, no further bleed, GI signed off
Platelet counts continued to drop-HIT panel negative --> now platelet counts are starting to improve, 160 today
Follow hemoglobin, transfuse if needed to keep Hb >7 g/dL
Not yet on therapy for his colon cancer.
-
After extubation continue nocturnal BiPAP for history of obstructive sleep apnea.
-
#CHRISS now on CRRT
Patient has had worsening renal creatinine function --->placed on CRRT on August 01, 2024-tunneled catheter placed.
Nephro consult appreciated-on intermittent hemodialysis, Alvarez catheter out
HD per nephrology
#Metabolic acidosis with increased anion gap due to severe CHRISS and lactic acidosis
Continue dialysis
#Transaminitis secondary to hypoxic liver
Patient had a shock liver response to hypoperfusion secondary to septic shock/cardiogenic shock
AST was greater than 7500 and ALT was greater than 4000
Limit Tylenol to less than 2 g daily to avoid liver damage
LFTs improved - continue to trend
-
Dr. Sun updated at the bedside-Limited DNR.
Patient has metastatic colon cancer per
DVT prophylaxis-Sequential compression devices-not a candidate for pharmacological prophylaxis due to GI bleed.
Critical care statement: A total of 38 minutes of critical care time was provided for this patient today. This includes management of unstable vital signs, evaluation of the patient at bedside, reviewing the patient's pertinent medical records
including ventilator settings, arterial blood gases, radiographs, microbiology, laboratory evaluations and discussion with primary team, critical care nursing, and respiratory therapy.
Subjective Dataa
Subjective Data
Date of Service:
Date of Service: August 15, 2024
Chief Complaint: It Application Architect Follow Up, Pulmonary Follow Up and Vent Management Follow Up
Objective Data
Data Reviewed
Vital Signs / I&O / Oxygen:
Vital Signs
Temp Pulse Resp BP Pulse Ox
98.3 F 88 10 146/35 100
08/15/24 12:00 08/15/24 13:15 08/15/24 13:15 08/15/24 13:15 08/15/24 13:15
Intake and Output
08/14/24 08/15/24 08/16/24
06:59 06:59 06:59
Intake Total 477.7 / 477.7
Balance 477.7 / 477.7
SaO2 [CPAP] 100
SaO2 [A/C] 100
SaO2 100
Nasal Cannula flow liters per 2
minute
Physical Exam
General: Comfortable and Other (Patient responsive, following commands, squeezing fingers, wiggling toes, nodding head, breathing on 2 L of oxygen, moving extremities)
HEENT: Normocephalic and Anicteric
Cardiovascular: S1-S2, Irregular Rhythm, Murmur (n), Rub (n) and Peripheral Edema (+1 lower extremity edema bilaterally, right anterior chest HD catheter, right upper extremity PICC, left upper extremity midline)
Respiratory: Clear, Wheeze (n), Crackles (n), Rhonchi (n) and Other (Decreased at base)
GI: Soft, Non Distended and Normal Bowel Sounds
Neurology: Awake, Alert, No Motor Deficits (Moving all extremities) and Other (Following commands, hands and legs, more alert today, BiPAP in place)
Skin: Cyanosis (n), Jaundice (y), Rash (n) and Bruising (n)
Labs/Micro/Reports
Lab Data
08/15/24 04:18
08/15/24 04:18
Laboratory Results
08/15/24 08/15/24 08/15/24
04:18 08:02 08:24
pH 7.39 Cancelled 7.37
pCO2 36 Cancelled 38
pO2 85 Cancelled 256 H
HCO3 21.8 Cancelled 22.0
O2 Delivery Level Bipap Cancelled Not Reportable
Microbiology
08/13/24 05:31 Feces/Stool Salmonella/Shigella Culture - Final
No Salmonella, Shigella, Aeromonas or Plesiomonas species
isolated.
08/13/24 05:31 Feces/Stool Campylobacter Culture - Final
No Campylobacter species isolated.
08/13/24 05:31 Feces/Stool Stool Leukocytes - Final
08/15/24 04:21 Nasal Swab Influenza Types A & B (KHANG) - Final
Negative for Influenza A & B, NAAT
Negative results must be combined with clinical observations
and patient history.
Nucleic Acid Amplification test (NAAT)performed on the
[email or web address] platform.
08/13/24 05:31 Feces/Stool C. difficile GDH Antigen & Toxins - Final
C. difficile antigen positive, toxin negative.
Clostridium difficile present, but toxin not detected.
Patient may be a carrier, colonized with nontoxinogenic
strain or the level of toxin in sample is below detection
limits. This information should be used in conjunction with
the patient's clinical history.
08/13/24 05:31 Feces/Stool - Final
Negative for Norovirus GI and GII.
08/07/24 11:39 Blood/Venous Blood Culture - Final
No Growth - Final Report
08/07/24 11:27 Blood/Venous Blood Culture - Final
No Growth - Final Report
--- NOTE | 2024-08-15 16:00 | PTCARENOTE ---
VSS, Dr. Sun to bedside, updated. Patient remains on multiple pressors, sedated, resting comfortably.
[2024-08-15 16:21] LABS: Cortisol, Random 27.9 ug/dl
[2024-08-15] MEDS: LEVOPHED 258 MG IV ×2 (16:24→21:06)
[2024-08-15 17:40] LABS: Glucose - Point of Care 184 mg/dl (70-99)
[2024-08-15] MEDS: FIRVANQ 125 MG PO (18:09)
--- NOTE | 2024-08-15 19:30 | PTCARENOTE ---
Patient received from RN @1900. Patient lying in bed. Patient arousable to tactile stimulation. pupils equal round and reactive. Pt intubated 8.0 tube and 24 at the lip. HR 90's, A-Fib, BP 113/39 Heart sounds audible. Lung sounds clear
anteriorly.. POX 100% on Ventilator A/C FiO2 40%, volume 550, 14 bpm, Peak flow 65, PEEP 5. hypoactive bowel sunds. Anuric. R nare NG tube set to low intermittent suction draining scant amount of bile. Right arm double lumen PICC line, Left
midline, and left hand PIV patent and intact. Left radial A- Line intact and transducing.. Levo, Fentynal, propofol, Vaso infusing, see worklist for details. Pedal and radial pulsese present bilaterally. FABRIC COATING SUPERVISOR Jose Carlos to change levo order to titrate
based off SBP instead of MAP.
[2024-08-15 21:19] LABS: B.E. -4.3 mmol/L; HCO3 19.8 mmol/L (21-28); O2 Saturation % 99.6 % (94-98); PCO2 32 mmHg (35-48); PO2 150 mmHg (83-108)
[2024-08-16] VITALS (25 sets, daily range): BP systolic 71–141; BP diastolic 26–85; BMI 36.9
--- NOTE | 2024-08-16 | PTCARENOTE ---
Patient reassessed. HR 99 A. Fib BP 112/36 POX 100% Ventilator A/C. Dark fluid noted draining from NG tube IP ATTORNEY Jose Carlos notified. Protonix ordered per IP ATTORNEY Jose Carlos. fentanyl bolus given see MAR for details. On levo, propofol, fentanyl, and vaso drips.
See Worklist for titration.
[2024-08-16 00:12] LABS: Hematocrit 27.6 % (39.0-52.0); Hemoglobin 8.7 g/dL (13.0-18.0)
[2024-08-16] MEDS: PROTONIX IV 40 MG IV ×3 (00:16→20:00)
[2024-08-16] MEDS: NSS (PRESERVATIVE FREE) 10 ML IV ×3 (00:16→20:00)
[2024-08-16] MEDS: PITRESSIN 100 IV ×3 (00:27→16:49)
[2024-08-16 00:28] LABS: Glucose - Point of Care 159 mg/dl (70-99)
[2024-08-16] MEDS: NOVOLOG FLEXPEN-MODERATE RESISTANCE 1 UNITS SC (00:28)
[2024-08-16] MEDS: FIRVANQ 125 MG PO ×2 (00:54→06:10)
[2024-08-16] MEDS: ZOSYN 50 IV ×2 (02:14→09:24)
[2024-08-16] MEDS: DIPRIVAN 100 IV ×5 (03:07→23:39)
[2024-08-16 03:17] LABS: Hematocrit 26.7 % (39.0-52.0); Hemoglobin 8.5 g/dL (13.0-18.0); Mean Corp Hgb Conc. 31.8 g/dL (33.0-37.0); Mean Corpuscular Hgb 28.8 pg (27.0-31.0); Mean Corpuscular Volume 90.5 fL (80.0-94.0); Mean Platelet Volume 10.4 fL (7.4-10.4); Platelet Count 177 10^3/uL (130-400); Red Blood Cell Count 2.95 10^6/uL (4.70-6.10); Red Cell Dist. Width 24.7 % (11.5-14.5); White Blood Cell Count 14.7 10^3/uL (4.8-10.8)
[2024-08-16 03:21] LABS: Blood Urea Nitrogen 94 mg/dl (9-20); Calcium 7.8 mg/dl (8.4-10.2); Carbon Dioxide 22 mmol/L (22-30); Chloride 105 mmol/L (98-107); Estimated Creatinine Clearance 14 ml/min; Glucose 151 mg/dl (70-99); Sodium 138 mmol/L (135-145); eGFR 7.71
--- NOTE | 2024-08-16 04:08 | PTCARENOTE ---
Patient reassessed. A. Fib HR 86 BP 104/36 POX 100% Ventilator A/C. Labs drawn. Patient turned and repositioned. Sacral wound dressing changed. Around sacral wound small grade 1 skin breakdown. Calazime lotion applied. Elbow pads changed.
Patient had small liquid bowel movement. CHG cloth bath completed. Levo, propofol, fentanyl, and vaso infusing.
[2024-08-16] MEDS: LEVOPHED 258 MG IV ×3 (04:36→20:14)
[2024-08-16 06:06] LABS: Glucose - Point of Care 149 mg/dl (70-99)
[2024-08-16] MEDS: NOVOLOG FLEXPEN-MODERATE RESISTANCE SC ×3 (06:07→17:22)
[2024-08-16] MEDS: SANTYL OINTMENT 1 APPLIC TOPICAL (07:50)
[2024-08-16] MEDS: HYDROPHOR 1 APPLIC TOPICAL (07:51)
--- NOTE | 2024-08-16 08:07 | PTCARENOTE ---
Received pt from assembler 1st shift RN; pt intubated and sedated; Pupils 2mm and reactive; A-fib on monitor and VSS; Left A-line, Right tunnel HD catheter; Right double lumen PICC and left midline, all lines leveled and zeroed; Levo, Fentanyl, Propofol and
Vaso infusing see flow sheet for details; Lungs diminished; ETT 8 and 24 at lip; vent setting A/C 405/550/5/14; suctioning patient for edouard thin secretions; hypoactive bowel sounds; NG tube in right nare draining dark brown liquid; pt anuric; HD
scheduled for 1200; palpable pulses throughout; no edema noted; sacral dressing C/D/I; B/L wrist restraints in places; pt Q2turn; see nursing documentation for further details.
Propofol 20 mcg/kg/min
Levo 14 mcg/min
Fentanyl 75 mcg/hr
Vaso 0.04 units/min
--- NOTE | 2024-08-16 09:57 | W.PN.CARDCBS ---
Addendum entered and electronically signed by Art Anderson MD 08/16/24 12:03:
I saw and examined the patient.
The Mobile Qa Tester's note was reviewed and I agree with the note.
Comment: Briefly, 64-year-old man PMHx atrial fibrillation presenting initially with dizziness and subsequently developed multi-organ failure
Remains intubated/sedated in the CVICU today where he is requiring pressor support
Atrial fibrillation is rate controlled off AV kalin nirav - previously on metoprolol which is on hold
[id number] 1 (HTN). AC on hold d/t GIB bleeding earlier this admission.
Volume being managed by nephrology via HD
Original Note:
Today's Communication / Plan
-
continue supportive care, pressor support
in rate controlled afib
volume mgmt through CRRT
Impression / Plan
-
Primary Forms Analyst: Dr. Hiren Vicente
Impression:
MSOF (resp failure, CHF, liver failure, renal failure)
Recent diagnosis paroxysmal atrial fibrillation with recurrent AFib with RVR
splenic infarct
GI bleeding
Hypotension previously requiring pressors
CHRISS (likely as a consequence of hypotension, possibly from septic shock versus cardiogenic shock or combination of both)
Acute hypoxic respiratory failure requiring intubation 07/31/24
Liver failure (likely as a consequence of hypotension, possibly from septic shock versus cardiogenic shock or combination of both)
Fever
Sepsis, s aureus PNA, possible S aureus bacteremia
Acute diastolic CHF
Colorectal cancer, suspected metastatic, diagnosed 06/22/2024, not yet started on therapy
Pulmonary nodule with concern for metastasis, scheduled for lung biopsy 08/03
Hypertension
Hyperlipidemia
Obstructive sleep apnea
Obesity
Edema
ECHO 07/31/24: Normal LV function. LVEF is 55-60%. No wall motion abnormality. Top normal right ventricular size with normal RV function. Mild AI and mild TR. Estimated pulmonary artery pressure of 38 mmHg
Plan:
-Presented MSOF (resp failure, CHF, liver failure, renal failure), shock, sepsis, lactic acidosis
-unfortunately needed to be re-intubated 2/5AM due to increased work of breathing. pancultured and ID following, on abx. LE US negative for DVT (unable to complete CT due to ESRD)
-he was started on HD this admission, continue volume mgmt as able through HD
-currently on levo @14, vaso @0.04.
-remains in persistent afib with adequate HR control on review of tele, follow. holding BB given need for pressors
-also with evidence of splenic infarct by imaging 08/06/24
-he had bloody BM on IV heparin earlier in hospital stay. not felt to be present OAC candidate due to being high risk for recurrent GI bleeding due to rectal masses per GI. hgb stable. He is [id number] score of 1 (hypertension) but does have
diagnosis of cancer. once recovered, could consider candidacy for watchman
-echo with preserved EF this admission.
-limited DNR code status (no CPR/shock)
-d/w at bedside
-d/w nursing
HPI:
64-year-old man with recently diagnosed colorectal cancer with possible lung metastasis and recent diagnosis of atrial fibrillation who presented with lightheadedness and dizziness after starting oral metoprolol as an outpatient and presented to
[facility] emergency department for further management. After being found to have CHRISS and anemia he was admitted for further management. Unfortunately developed increased work of breathing this morning, became tachycardic and was found to be
febrile. Did not clinically improve with BiPAP and he was subsequently intubated and transferred to the medical ICU for further management. Currently being treated with broad-spectrum antibiotics and requiring pressor support.
Seen in the outpatient cardiology office 07/26/24 and was in AF with a rapid ventricular rate of 130 bpm. At that visit he had yet to initiate Toprol-XL which was ordered by his primary care physician. At that office visit he agreed to initiate
Toprol-XL 25 mg daily for rate control with plan to defer recommendations regarding rhythm control until he was adequately anticoagulated (atrial fibrillation of unknown duration) and to allow for intermittent interruption of anticoagulation for
planned upcoming procedures regarding his recently diagnosed colorectal cancer with likely pulmonary metastases (bronchoscopy, port placement, colorectal surgery). Eliquis 5 mg twice daily was also initiated on 07/26/24..
Cardiology is consulted for possible heart failure as a cause of his respiratory decompensation. proBNP was mildly elevated (3210), it is possible there is some component of heart failure with preserved ejection fraction.
On presentation to the emergency department 07/30/24, he was in atrial fibrillation with reasonably controlled ventricular rate of 105 bpm. EKG of July 31, 2024 finds sinus rhythm at 77 bpm.
Progress Note - Forms Analyst
Subjective
Date of Service: August 16, 2024
intubated, sedated
Objective
Labs:
08/16/24 02:58
08/16/24 02:58
Labs
Hgb 8.5 g/dL (13.0-18.0) L 08/16/24 02:58
Hct 26.7 % (39.0-52.0) L 08/16/24 02:58
Plt Count 177 10^3/uL (130-400) 08/16/24 02:58
PT 19.5 Sec (11.4-14.6) H 08/07/24 11:27
INR 1.62 08/07/24 11:27
APTT 54.9 Sec (23.4-35.0) H 08/07/24 11:27
Sodium 138 mmol/L (135-145) 08/16/24 02:58
Potassium 5.0 mmol/L (3.5-5.1) 08/16/24 02:58
BUN 94 mg/dl (9-20) H 08/16/24 02:58
Creatinine 7.4 mg/dL (0.7-1.3) H* 08/16/24 02:58
Glucose 151 mg/dl (70-99) H 08/16/24 02:58
Troponins
08/15/24
04:18
Troponin I 0.161 H*
Vital Signs and I&O:
Vital Signs
Temp Pulse Resp BP Pulse Ox
98.5 F 88 99
08/16/24 07:00 08/16/24 09:00 08/16/24 09:00 08/16/24 08:30 08/16/24 09:00
Vital Signs
Temp Pulse Resp BP Pulse Ox
98.5 F 88 99
08/16/24 07:00 08/16/24 09:00 08/16/24 09:00 08/16/24 08:30 08/16/24 09:00
Intake & Output
08/14/24 08/15/24 08/16/24 08/17/24
07:59 07:59 07:59 07:59
Intake Total 1925.8 / 1986.3 171.0 / 171.0
Output Total 190 / 190
Balance 1735.8 / 1796.3 171.0 / 171.0
Physical Exam
Physical Exam
GEN: No distress, intubated, sedated. NGT in place
HEENT: supple, mmm
LUNGS: Decreased BS, no wheezes
CV: Irreg, S1/S2, no murmur
EXT: No cyanosis, clubbing. trace edema of B/L LE
NEURO: sedated
SKIN: Warm, pink, dry. No rash
[2024-08-16] MEDS: SUBLIMAZE 50 MCG IV ×3 (10:14→20:45)
--- NOTE | 2024-08-16 10:35 | W.PN.ID1 ---
Date of Service
Date of Service: August 16, 2024
Today's Communication
- UA not yet done - bladder scan and straight cath for ua and culture
- note colonization with C difficile, recheck for active toxin production
- having large amount of dark brown, thin output from NGT - likely ileus
- oral vancomycin will not reach the lower GI tract - stopped
- started IV metronidazole
- switched to cefepime - renally dosed
Assessment / Plan
Relapsed shock without a clear source
Colonization with C difficile
Possible UTI
S aureus (MSSA) Pneumonia - resolved
Strep salivarius bacteremia x 2 sets drawn at the same time - most likely contaminant
CHRISS on HD
Class III Obesity
Colorectal Adenocarcinoma - not yet on treatment
Psoriatic Arthritis - currently off of Enbrel since ~05/03
- blood cultures x2 in progress
- covid and influenza negative 08/15
- UA not yet done - bladder scan and straight cath for ua and culture
- note colonization with C difficile, recheck for active toxin production
- having large amount of dark brown, thin output from NGT - likely ileus
- oral vancomycin will not reach the lower GI tract - stopped
- started IV metronidazole
- switched to cefepime - renally dosed
- follow clinically
Chief Complaint
-: Pneumonia (S aureus), Bacteremia (streptococcus) and Other (shock)
Subjective / Review of Systems
afebrile
pressor requirements somewhat improved compared to last night, increased overall from yesterday
edouard thin secretions
NGT draining dark brown liquid
Vital Signs / Physical Exam
Vital Signs
Vital Signs
Temp Pulse Resp BP Pulse Ox
98.5 F 88 19 84/62 99
08/16/24 07:00 08/16/24 10:15 08/16/24 10:15 08/16/24 08:30 08/16/24 10:15
Physical Exam
Constitutional: No Acute Distress and Chronically Ill
Cardiovascular: Regular Rate and S1/S2; Negative Murmur or Rub
Pulmonary: Clear and Symmetric; Negative Wheezes or Rales
Gastrointestinal: Soft, Non Tender, Distended and Normal Bowel Sounds
Skin: Warm and Dry; Negative Rash or Jaundice
Neurological: Negative Awake
Lines: Other (ngt with thick brown fluid)
Objective Data
Lab Data
Lab Results
08/16/24 02:58
PT 19.5 Sec (11.4-14.6) H 08/07/24 11:27
INR 1.62 08/07/24 11:27
APTT 54.9 Sec (23.4-35.0) H 08/07/24 11:27
Estimated Creat Clear 14 ml/min 08/16/24 02:58
Lactic Acid 1.7 mmol/L (0.7-2.0) 08/06/24 03:26
Total Bilirubin 4.1 mg/dl (0.2-1.3) H 08/14/24 05:48
AST 229 U/L (17-59) H 08/14/24 05:48
ALT 103 U/L (0-50) H 08/14/24 05:48
Alkaline Phosphatase 340 U/L (38-126) H 08/14/24 05:48
Most recent labs reviewed.
Micro Results:
08/13/24 05:31 Salmonella/Shigella Culture - Final
Feces/Stool No Salmonella, Shigella, Aeromonas or Plesiomonas species
isolated.
Campylobacter Culture - Final
No Campylobacter species isolated.
Shiga Toxin Test - Final
No E. coli Shiga Toxin 1 or 2 detected.
Stool Leukocytes - Final
08/15/24 04:30 Blood Culture - Preliminary
Blood/Venous No Growth in 24 hours- Final report to follow
08/15/24 04:30 Blood Culture - Preliminary
Blood/Venous No Growth in 24 hours- Final report to follow
08/15/24 04:21 Influenza Types A & B (KHANG) - Final
Nasal Swab Negative for Influenza A & B, NAAT
Negative results must be combined with clinical observations
and patient history.
Nucleic Acid Amplification test (NAAT)performed on the
[employer] platform.
08/13/24 05:31 C. difficile GDH Antigen & Toxins - Final
Feces/Stool C. difficile antigen positive, toxin negative.
Clostridium difficile present, but toxin not detected.
Patient may be a carrier, colonized with nontoxinogenic
strain or the level of toxin in sample is below detection
limits. This information should be used in conjunction with
the patient's clinical history.
- Final
Negative for Norovirus GI and GII.
08/07/24 11:39 Blood Culture - Final
Blood/Venous No Growth - Final Report
08/07/24 11:27 Blood Culture - Final
Blood/Venous No Growth - Final Report
08/07/24 10:52 Respiratory Culture - Final
Sputum NO GROWTH
Gram Stain - Final
08/03/24 03:28 Blood Culture - Final
Blood/Venous No Growth - Final Report
08/03/24 03:41 Blood Culture - Final
Blood/Venous No Growth - Final Report
08/01/24 18:19 Blood Culture - Final
Blood/Venous No Growth - Final Report
08/01/24 15:36 Blood Culture - Final
Blood/Venous No Growth - Final Report
07/31/24 12:18 Respiratory Culture - Final
Endotracheal S aureus-Methicillin Sensitive
Gram Stain - Final
07/31/24 07:54 Blood Culture - Final
Blood/Venous Streptococcus salivarius
Gram Stain - Final
07/31/24 07:54 Blood Culture - Final
Blood/Venous Streptococcus salivarius
Gram Stain - Final
07/31/24 11:49 Legionella Urinary Antigen - Final
Urine Negative for Legionella pneumophila Serogroup 1 antigen.
A negative result does not rule out the possiblity of
Legionella infection due to other serogroups or species of
Legionella. Clinical correlation is recommended.
Streptococcus pneumoniae Antigen (M - Final
Negative for Streptococcus pneumoniae antigen.
A negative result does not exclude infection with
Streptococcus pneumoniae. Clinical correlation is
recommended.
07/31/24 12:18 Nasal Screen MRSA (PCR) - Final
Nose MRSA not detected - performed by PCR methodology.
07/31/24 08:10 Influenza Types A & B (KHANG) - Final
Nasal Swab Negative for Influenza A & B, NAAT
Negative results must be combined with clinical observations
and patient history.
Nucleic Acid Amplification test (NAAT)performed on the
[employer] platform.
08/04/24 CXR: Moderate pulmonary edema, without significant change.
[2024-08-16] MEDS: SUBLIMAZE 100 IV ×2 (11:25→21:26)
--- NOTE | 2024-08-16 11:42 | W.PN.NEPH.PH ---
Today's Communication / Plan
-
HD today
Assessment/Plan
-
64-year-old man with recently diagnosed colorectal cancer with possible lung metastasis and recent diagnosis of atrial fibrillation who presented with lightheadedness and dizziness after starting oral metoprolol as an outpatient and presented to
[facility] emergency department. He presented in acute kidney injury admitted to the floors upgraded to the ICU for increased work of breathing ultimately intubated in the ICU with hyperkalemia.
Patient is critically ill on pressor support essentially anuric.
Positive blood cultures pending organism. Staph aureus sputum culture.
Renal consult for acute kidney injury and hyperkalemia
Impression.
Acute kidney injury and hyperkalemia secondary to septic shock.
Colorectal cancer newly diagnosed June 2024 with possible lung metastasis
Atrial fibrillation on oral anticoagulation
VDRF
Bacteremia/sepsis
Plan.
remains intubated and on pressors
plan HD today with limited UF, if did not tolerate may switch to CRRT
abx per ID
monitor h/h , concern of GIB
d/w and nursing
CC time spent 31min
-
-
Date of Service: August 16, 2024
CC / HPI / ROS
-
Chief Complaint:
Septic shock
History of Present Illness:
tolerated HD on 08/09 and 08/11, 08/14
Hemoglobin low at 8.5
needed to reintubated and on presssors 08/15-no change
WBC is high 14.7
bladder scan 357cc
Review of Systems:.
sedated and intubated
no fever, on 40% FIo2
Labs
-
Labs:
WBC 14.7 10^3/uL (4.8-10.8) H 08/16/24 02:58
RBC 2.95 10^6/uL (4.70-6.10) L 02/06/25 02:58
Plt Count 177 10^3/uL (130-400) 08/16/24 02:58
Sodium 138 mmol/L (135-145) 08/16/24 02:58
Potassium 5.0 mmol/L (3.5-5.1) 08/16/24 02:58
Chloride 105 mmol/L (98-107) 08/16/24 02:58
Carbon Dioxide 22 mmol/L (22-30) 08/16/24 02:58
BUN 94 mg/dl (9-20) H 08/16/24 02:58
Creatinine 7.4 mg/dL (0.7-1.3) H* 08/16/24 02:58
eGFR 7.71 08/16/24 02:58
Glucose 151 mg/dl (70-99) H 08/16/24 02:58
Calcium 7.8 mg/dl (8.4-10.2) L 08/16/24 02:58
Phosphorus 4.5 mg/dl (2.5-4.5) 08/08/24 08:31
Nmb-H-Qedpfpknbjw Pept 2850 pg/ml 08/06/24 03:26
Albumin 2.8 g/dl (3.5-5.0) L 08/14/24 05:48
Physical Exam
-
Vital Signs:
Vital Signs
Temp Pulse Resp BP Pulse Ox
98.5 F 89 14 84/62 99
08/16/24 07:00 08/16/24 11:00 08/16/24 11:00 08/16/24 08:30 08/16/24 11:00
Cardiovascular:: Irregular rate and rhythm
Respiratory:: Bilateral: Coarse
Lung Excursion:: Normal
Abdomen:: Nontender and Soft
Extremity Edema:: +1: Bilateral: (trace)
Alvarez Catheter: No
--- NOTE | 2024-08-16 11:50 | PTCARENOTE ---
Dr Smith at bedside, bladder scan pt for 357, per straight cath pt x1 for UA; straight cath pt without difficulties, 300mls of dark zion urine drained; UA sent to lab.
--- NOTE | 2024-08-16 11:50 | CM ---
CM following for DC planning needs.
Pt. had transferred to CVICU from alternative floor following re-intubation.
Noted initial assessment. Pt. resides in a private home w/ spouse. He was functionally indep. prior to admission w/ ADLs, mobility. Still is working.
DC plan has been anticipated for Acute Rehab. Referrals made to both [facility] and [facility].
Pt. is also on hemodialysis currently. An outpatient unit at [facility] has accepted pt. for ongoing hemodialysis, if this is warranted. Will need to keep them updated on DC status and HD necessity.
Will cont. to follow closely for DC planning needs.
[2024-08-16 12:01] LABS: Urine Albumin 3+ (Neg - Trace); Urine Bilirubin 1+ (Negative); Urine Character Slightly Cloudy (Clear); Urine Color Yellow; Urine Glucose Negative (Negative); Urine Ketone 1+ (Negative); Urine Leukocyte 1+ (Negative); Urine Nitrite Negative (Negative); Urine Occult Blood 2+ (Negative); Urine Specific Gravity 1.025 (<1.030); Urine Urobilinogen Negative (Neg - 1+)
[2024-08-16] MEDS: RETACRIT 10000 UNITS IV (12:05)
[2024-08-16 12:06] LABS: Glucose - Point of Care 130 mg/dl (70-99)
[2024-08-16] MEDS: MANNITOL 25% 12.5 GRAMS IV ×2 (12:08→13:20)
[2024-08-16] MEDS: FLEXBUMIN 25% FOR HEMODIALYSIS 12.5 GRAMS IV ×2 (12:20→14:25)
--- NOTE | 2024-08-16 12:20 | PTCARENOTE ---
A-fib on monitor and VSS; Levo, Vaso, Fentanyl and Prop all infusing see flow sheet for details; HD RN at bedside; family at bedside and assessment unchanged.
[2024-08-16 12:30] LABS: Urine Amorphous Seen
[2024-08-16 12:34] LABS: Urine Urothelial Cell 21-25 /LPF (FEW)
[2024-08-16 12:38] LABS: Urine White Cell 16-20 /HPF (0-5)
[2024-08-16 12:40] LABS: Urine Bacteria Few (Negative)
--- NOTE | 2024-08-16 12:47 | W.PN.INTV ---
Today's Communication / Plan
Recommendations
Wean down vasopressors
Sedation break per protocol-will attempt to decrease propofol and fentanyl hopefully hemodynamics will improve. If agitated Precedex will be considered
Follow H&H later, if dropping then will need to reconsult GI due to coffee-ground on NG tube continue PPI twice a day.
Continue mechanical ventilation without change
Follow cultures
Continue antibiotic
Assessment
-
Impression
Patient is a 64-year-old male, recently diagnosed with colorectal carcinoma and the disease is presumably advanced, had a lung nodule that was supposed to be biopsied but patient ended up in the ER for dizziness secondary to recent atrial
fibrillation. As his workup was being done in the ER for CHRISS and anemia along with dizziness, patient decompensated, had acute respiratory failure, nonresponsive to nonrebreather mask and noninvasive ventilation, ended up in ICU, rapid response was
called, had to be intubated.
Assessment:
# Acute respiratory failure requiring intubation mechanical ventilation 08/15/2024
-
# Atrial fibrillation with rapid ventricular response - now rate controlled
# Change in mental status - now more alert
#Acute rectal bleeding in the setting of colorectal carcinoma/heparin infusion - now resolved
#Acute respiratory failure - improved and now on room air
#CHRISS now on CRRT - remains on iHD and off CRRT
#Streptococcal bacteremia via BCx from 07/31/2024
#Acute HFpEF exacerbation
#Metabolic acidosis with increased anion gap due to severe CHRISS
#Transaminitis secondary to hypoxic liver
#Hx of HAN
Other chronic medical conditions:
#Metastatic colorectal cancer with suspected lung metastasis (diagnosed via colonoscopy on 06/22/2024 with partially obstructing tumor seen in the rectum 4 cm from the anal verge, invasive low-grade colorectal adenocarcinoma)
#PET avid 2.2 cm right upper lobe nodule originally planned for robotic bronchoscopy on 08/03/2024 (will be deferred for now)
#HAN on auto CPAP
#History of psoriasis previously on Enbrel
#History of hepatitis A
#History of COVID-19 (03/2024)
#Restrictive lung disease (suspected based on spirometry from 05/15/2021, however patient was coughing during testing and post-bronchodilator FVC was WNL at 84% predicted)
Plan:
-
Transfer back to the critical care unit 08/15/2024 after developing overnight increased work of breathing. Failed BiPAP therapy intubated emergently.
-
Acute respiratory failure-intubated on mechanical ventilation
Patient was on mechanical ventilation since 07/31/2024 --> extubated on 08/08/2024
Reintubated 08/15/2024.
Chest x-ray reviewed: ET tube in place, no pneumothorax. Left lower lobe abnormality
Mechanical ventilation settings reviewed-pulmonary mechanics acceptable
Not bronchospastic on exam
AB08/15/2024: 7.4/32/150-adequate oxygenation and ventilation.
Continue mechanical ventilation without change
Sedation break per protocol, if appropriate will attempt spontaneous breathing trial
-
Continue sedation with fentanyl and propofol for RASS score 0 to -1-
May need Precedex if patient is agitated with sedation breaks.
-
Etiology for respiratory failure and increased work of breathing unclear to me.
Not sure if this patient has aspirated and developed some degree of pneumonitis
Chest x-ray without acute infiltrates.
Lower extremity Dopplers ordered by me 08/15/2024: No evidence for deep venous thrombosis.
Thromboembolic disease less likely, not significantly tachycardic.
-
Patient is in shock requiring Levophed: Rule out sepsis
Continue Levophed/vasopressin also added maintain mean arterial blood pressure 65 mmHg.
Cortisol level is adequate.
Worsening leukocytosis
Afebrile
Infectious disease correspondence reviewed-Zosyn will continue
Oral vancomycin added
Repeat cultures-pending. Negative so far.
influenza negative
Recent C. difficile - 08/13/2024
Chest x-ray not impressive for pulmonary source.
-
#Streptococcal salivarious bacteremia
Echo repeated on 08/07/2024-There is no evidence of vegetation or embolic source seen.
New splenic infarct --> Repeat blood cultures have showing NGTD since 07/12/2024
History of MSSA pneumonia.
-
NG tube with dark output-possible gastritis.
PPI twice a day
Follow H&H later, if declining then we will need to get GI involved.
-
# Atrial fibrillation with rapid ventricular response-rate is controlled
Troponin trending lower 08/15/2024
- Goal HR<110
-Continue with metoprolol 75 mg PO q6hr
Not on anticoagulation due to recent GI bleed and low platelet counts
SYL panel negative from 08/08/2024
Cardiology following-recommendations appreciated
# Change in mental status-apparently he was back to baseline prior to this event. Sedation breaks as able to
On 08/08, patient's mental status was altered in terms of responsiveness, CT scan of head was repeated showing no acute intracranial abnormality
On 08/09, patient was agitated/no purposeful movements, platelet counts dropping, history of rectal bleed-ammonia levels checked-less than 9
Currently on sedation 08/15/2024
#Acute rectal bleeding in the setting of colorectal carcinoma/heparin infusion
Patient had bloody bowel movements on 08/06/2024 with roughly 1 L of blood loss
Colorectal surgery consult apprec-CTA negative for active GI bleed
Hemoglobin remained stable around 8, no further bleed, GI signed off
Platelet counts continued to drop-HIT panel negative --> now platelet counts are starting to improve, 160 today
Follow hemoglobin, transfuse if needed to keep Hb >7 g/dL
Not yet on therapy for his colon cancer.
-
After extubation continue nocturnal BiPAP for history of obstructive sleep apnea.
-
#CHRISS now on CRRT
Patient has had worsening renal creatinine function --->placed on CRRT on August 01, 2024-tunneled catheter placed.
Nephro consult appreciated-on intermittent hemodialysis, Alvarez catheter out
HD per nephrology
#Metabolic acidosis with increased anion gap due to severe CHRISS and lactic acidosis
Continue dialysis
#Transaminitis secondary to hypoxic liver
Patient had a shock liver response to hypoperfusion secondary to septic shock/cardiogenic shock
AST was greater than 7500 and ALT was greater than 4000
LFTs improved - continue to trend
-
Dr. Sun updated at the bedside-Limited DNR.
Patient has metastatic colon cancer per
DVT prophylaxis-Sequential compression devices-not a candidate for pharmacological prophylaxis due to GI bleed.
Dr. Sun updated at the bedside 08/16/2024
Critical care statement: A total of 34 minutes of critical care time was provided for this patient today. This includes management of unstable vital signs, evaluation of the patient at bedside, reviewing the patient's pertinent medical records
including ventilator settings, arterial blood gases, radiographs, microbiology, laboratory evaluations and discussion with primary team, critical care nursing, and respiratory therapy.
Subjective Dataa
Subjective Data
Date of Service:
Date of Service: August 16, 2024
Chief Complaint: Coal Hauler Follow Up, Pulmonary Follow Up and Vent Management Follow Up
Subjective:
Remains intubated, mechanical ventilation.
Review of Systems
General: Unobtainable - Sedation
Objective Data
Data Reviewed
Vital Signs / I&O / Oxygen:
Vital Signs
Temp Pulse Resp BP Pulse Ox
98.3 F 91 14 84/62 100
08/16/24 12:00 08/16/24 12:00 08/16/24 12:00 08/16/24 08:30 08/16/24 12:00
Intake and Output
08/15/24 08/16/24 08/17/24
06:59 06:59 06:59
Intake Total 1865.3 / 1925.8 432.8 / 432.8
Output Total 190 / 190 300 / 300
Balance 1675.3 / 1735.8 132.8 / 132.8
SaO2 [CPAP] 100
SaO2 [A/C] 100
SaO2 99
Nasal Cannula flow liters per 2
minute
Physical Exam
General: Comfortable and Other (Sedated, mechanical ventilation.)
HEENT: Normocephalic, Anicteric and Other ( ET tube in place without secretion)
Cardiovascular: S1-S2, Irregular Rhythm, Murmur (n), Rub (n) and Peripheral Edema (+1 lower extremity edema bilaterally, right anterior chest HD catheter, right upper extremity PICC, left upper extremity midline)
Respiratory: Clear, Wheeze (n), Crackles (n), Rhonchi (n) and Other (Decreased at base)
GI: Soft, Non Distended and Normal Bowel Sounds
Neurology: Awake, Alert, No Motor Deficits (Moving all extremities) and Other (Following commands, hands and legs, more alert today, BiPAP in place)
Skin: Cyanosis (n), Jaundice (y), Rash (n) and Bruising (n)
Labs/Micro/Reports
Lab Data
08/16/24 02:58
Laboratory Results
08/15/24
21:10
pH 7.40
pCO2 32 L
pO2 150 H
HCO3 19.8 L
O2 Delivery Level Not Reportable
Microbiology
08/13/24 05:31 Feces/Stool Salmonella/Shigella Culture - Final
No Salmonella, Shigella, Aeromonas or Plesiomonas species
isolated.
08/13/24 05:31 Feces/Stool Campylobacter Culture - Final
No Campylobacter species isolated.
08/13/24 05:31 Feces/Stool Shiga Toxin Test - Final
No E. coli Shiga Toxin 1 or 2 detected.
08/13/24 05:31 Feces/Stool Stool Leukocytes - Final
08/15/24 04:30 Blood/Venous Blood Culture - Preliminary
No Growth in 24 hours- Final report to follow
08/15/24 04:30 Blood/Venous Blood Culture - Preliminary
No Growth in 24 hours- Final report to follow
08/15/24 04:21 Nasal Swab Influenza Types A & B (KHANG) - Final
Negative for Influenza A & B, NAAT
Negative results must be combined with clinical observations
and patient history.
Nucleic Acid Amplification test (NAAT)performed on the
[employer] platform.
08/13/24 05:31 Feces/Stool C. difficile [facility] Antigen & Toxins - Final
C. difficile antigen positive, toxin negative.
Clostridium difficile present, but toxin not detected.
Patient may be a carrier, colonized with nontoxinogenic
strain or the level of toxin in sample is below detection
limits. This information should be used in conjunction with
the patient's clinical history.
08/13/24 05:31 Feces/Stool - Final
Negative for Norovirus GI and GII.
--- NOTE | 2024-08-16 12:48 | W.PN.HOSP.TC ---
Today's Communication/Plan
-
Monitor vitals
See plan
Wean vent as tolerated
Currently on levo and vaso-, wean as tolerated
On fentanyl and propofol
Monitor hemoglobin, repeat later today
Continue with antibiotics
Assessment / Plan
Assessment / Plan
Mr. Иван Redd is a 64-year-old man with a past medical history of recently diagnosed colorectal cancer, persistent atrial fibrillation, essential hypertension who presents to the ER with dizziness. Patient reports feeling unwell for the last
2 days. He was recently started on metoprolol and Eliquis for atrial fibrillation. Overnight admission patient developed acute respiratory failure in setting of high fever with finding MSSA in blood and sputum; development of renal failure
requiring CRRT.
Assessment:
Acute Respiratory Failure requiring intubation
MSSA Bacteremia and Pneumonia
Septic Shock
Acute Renal Failure with acute HFpEF (pulm edema)
Hyperkalemia
Lactic Acidosis
Non-Ischemic Myocardial Injury
-s/p intubation morning of 07/31 during rapid response; extubated 08/08 to BIPAP (now just BIPAP is nocturnal). was on Room air
-initial concern for flash pulmonary edema given acute SOB, CXR read and patient had been receiving IVF. IV lasix given without significant output and worsening renal function; renal consulted and patient initiated on CRRT on 08/01 given worsening
renal function, essentially no urine output and hyperkalemia. CRRT now stopped and now on HD via tunneled cath. HD schedule per Nephrology.
-08/01: culture results showing MSSA in Sputum and Blood
-TTE results above - no vegetation
-completed Unasyn course
-off pressors
-off sedation
-Director Of Food [employer] Bever[employer] Services Consult appreciated
-Cardiology consult appreciated
-Nephrology consult appreciated
08/15/2024 morning, patient started having increased work of breathing and could not tolerate BiPAP. Now intubated. Director Of [employer] Bever[employer] Services following. Wean vent as tolerated. Currently on propofol,fentanyl wean sedation as tolerated
Appears to be in shock. Currently on Levophed,vaso, wean pressors.
Unclear if there was any aspiration event, given worsening leukocytosis and intubation. Will put on empiric Zosyn for now. ID consulted
Blood culture NGTD
Fluid negative
Venous Doppler negative for DVT
cdiff antigen positive, toxin negative. P.o. vancomycin while on antibiotics
Acute lower GI bleed (exacerbated by IV heparin)
Known history of colorectal Adenocarcinoma with possible lung mets
- s/p CTA without active bleeding source. No role for IR intervention. Source felt be related to known colon masses, although diverticular disease or AVMs possible.
- was previously Scheduled for lung biopsy as outpatient
- patient had not yet started chemotherapy
- GI following
NGT draining with black liquid, made PPI BID. repeat hgb. Discussed with observer gravity prospecting and he will evaluate and see if GI consultation is needed
Persistent Atrial Fibrillation
- off anticoagulation with active bleed episode; family aware of stroke risk
Metoprolol on hold due to hypotension
TME from multifactorial
-critical illness, recent sedation
-monitor mentation
-CTH negative 08/08
-s/p VSE 08/13; now on dysphagia diet. ongoing speech evals.
Constipation
- bowel regimen prn
Essential Hypertension
- hold TUBE BUILDER Olmesartan-HCTZ
Hold metoprolol
Hyperlipidemia
- hold rosuvastatin
acute Thrombocytopenia
- HIT panel negative
Monitor
sacral/buttocks DTI
- fecal management system placement attempted, unable to stay in per RN
- wound care service following; suspect stage III or stage IV pressure injury. Consider surgical evaluation if symptoms do not improve
DVT ppx: SCDs
Code: Limited DNR, discussed with spouse
General: Intubated
HEENT: Normocephalic and Atraumatic
Respiratory: Ventilated breath sounds
Cardiac: irregular Rhythm and S1/S2
GI: Soft and Nontender
Genito-urinary: No Costovertebral Tender
Musculoskeletal: No Edema
Neuro: Sedated
Psych: Calm
I spent a total of 52 minutes with the patient or on the floor. More than 50% of this time involved counseling and coordination of care.
Anticipated Discharge: > 48 hours
Subjective/Interval History
-
Date of Service: August 16, 2024
Intubated
Objective Data
-
Labs:
Laboratory Results
08/16/24 08/16/24
02:58 13:00
WBC 14.7 H
Hgb 8.5 L Pending
Hct 26.7 L Pending
Plt Count 177
Sodium 138
Potassium 5.0
Chloride 105
Carbon Dioxide 22
BUN 94 H
Creatinine 7.4 H*
Glucose 151 H
Calcium 7.8 L
Vital Signs:
Vital Signs
Temp Pulse Resp BP Pulse Ox
98.3 F 91 14 84/62 100
08/16/24 12:00 08/16/24 12:00 08/16/24 12:00 08/16/24 08:30 08/16/24 12:00
I&O
08/15/24 08/16/24 08/17/24
06:59 06:59 06:59
Intake Total 1865.3 / 1925.8 432.8 / 432.8
Output Total 190 / 190 300 / 300
Balance 1675.3 / 1735.8 132.8 / 132.8
[2024-08-16 13:23] LABS: Hematocrit 27.7 % (39.0-52.0); Hemoglobin 8.8 g/dL (13.0-18.0)
[2024-08-16] MEDS: FIRVANQ PO (14:58)
[2024-08-16] MEDS: MAXIPIME 1000 MG IV (15:04)
[2024-08-16] MEDS: STERILE WATER FOR INJECTION 10 ML IV (15:04)
[2024-08-16] MEDS: FLAGYL 500 MG 100 IV ×2 (15:06→21:25)
--- NOTE | 2024-08-16 15:39 | W.PN.NEPH.HD ---
Assessment
-
pt seen during HD
titrate pressors to maintain SBP>90,
limited UF
CVC functions fine
Progress Note - Hemodialysis
-
Date of Service: August 16, 2024
Duration: 30 minutes and 3 hours
Potassium Bath: 2
Calcium Bath: 2.5
Opti-Dialyzer: 160
Ultrafiltration: Other (0.5-1kg)
Blood Flow: 400
Dialysate Flow: 600
Heparin: no
EPO: [id number]
--- NOTE | 2024-08-16 16:37 | PTCARENOTE ---
Pt turned and dressing changed on sacrum; pt became restless, typnec, diaphoretic, decreased breath sounds; hypotensive on monitor and HR 120-150s; Epi x1 given, Levo, Prop and Fentanyl increased; Respiratory and Dr Sun at bedside, pt bagged by
respiratory and dislodged a large mucus plug; STAT CRX ordered.
--- NOTE | 2024-08-16 16:46 | W.PN.UPDATE ---
Update Note
Progress Note Update
I was emergently called to bedside to evaluate patient. As patient was being turned became more hypotensive, unable to ventilate. Hypoxemic.
I came to the bedside, patient was with increased work of breathing, uncomfortable, cyanotic. Hypoxemic, hypotensive despite vasopressors.
Difficult to ventilate. Vigorous suctioning performed by respiratory therapist and me, saline flush through the ET tube provided.
Thick, large mucous plug eventually was suctioned-immediately tidal volumes returned to normal. Due to hypotension and near cardiorespiratory arrest patient was given 1 amp of epinephrine. Significant response with tachycardia and hypertension
subsequently coming back down to the baseline.
Will restart norepinephrine, continue vasopressin. Follow hemodynamics
Now on exam able to move air bilaterally.
Will obtain chest x-ray to confirm ET tube placement
Will add nebulizer therapy for secretion clearance.
-
Possibly this is the reason of the cardiorespiratory arrest on floors.
-
was at the bedside she was updated in detail.
-
Critical care statement: A total of 25 minutes of critical care time was provided for this patient today. This includes management of unstable vital signs, evaluation of the patient at bedside, reviewing the patient's pertinent medical records
including ventilator settings, arterial blood gases, radiographs, microbiology, laboratory evaluations and discussion with primary team, critical care nursing, and respiratory therapy.
[2024-08-16 17:22] LABS: Glucose - Point of Care 133 mg/dl (70-99)
--- NOTE | 2024-08-16 17:48 | PTCARENOTE ---
Pt transferred to ICU and report given to HOG DROPPER.
--- NOTE | 2024-08-16 18:15 | PTCARENOTE ---
patient received from CVICU. sedated with prop and fent, rass 0 to -2. weak hand grasps. monitor afib. ett to vent, settings per work list. lungs with coarse breath sounds bilaterally. right chest wall HD cath in place, picc, midline patent.
pressors switched from midline to PICC. tubings changed. ngt placement verified by air auscultation. abdomen obese, incontinent stool. sacral dressing intact. wrist restraints maintained for patient safety
[2024-08-16] MEDS: DUONEB 3 ML INH (19:50)
--- NOTE | 2024-08-16 20:00 | PTCARENOTE ---
Received pt intubated and sedated on propofol and fentanyl gtts. Pt. opens eyes to verbal briefly. Weak hand grasps B/L. Restraints in place for safety. Afib on tele, HR 90s-100. L A line- transduced and zeroed. On double concentrated levo and vaso
to maintain SBP >90. See worklist for titrations. +1 gen anasarca. + DP/radial pulses. Afebrile. SCDs maintained. #8.0 ETT, moved to center at 24cm. Tolerating A/C 14/550/+5/40%. Lungs dim throughout. Spo2 98-100%. NG tube to LIWS. Round, obese abd.
+ bowel sounds. Bladder scanned for 48ml- will monitor. R DL PICC with DC levo and vaso, prop switched to PICC from L midline. Fentanyl infusing via midline. R CW HD cath in place. VAT team at bedside to change PICC dsg. Under PICC dsg, blisters
noted. Turning q2.
[2024-08-17] VITALS (31 sets, daily range): BP systolic 87–142; BP diastolic 38–51; BMI 38.0
[2024-08-17 00:34] LABS: Glucose - Point of Care 135 mg/dl (70-99)
[2024-08-17] MEDS: NOVOLOG FLEXPEN-MODERATE RESISTANCE SC ×4 (00:47→12:09)
--- NOTE | 2024-08-17 00:55 | PTCARENOTE ---
Levophed weaned to 14mcg. Vasopressin turned off at this time. Will monitor closely. A line zeroed. No other changes.
[2024-08-17 04:08] LABS: B.E. -0.1 mmol/L; HCO3 23.1 mmol/L (21-28); O2 Saturation % 99.3 % (94-98); PCO2 31 mmHg (35-48); PO2 148 mmHg (83-108); pH 7.48 (7.35-7.45)
[2024-08-17 04:17] LABS: Hematocrit 24.5 % (39.0-52.0); Hemoglobin 7.8 g/dL (13.0-18.0); Mean Corp Hgb Conc. 31.8 g/dL (33.0-37.0); Mean Corpuscular Hgb 28.8 pg (27.0-31.0); Mean Corpuscular Volume 90.4 fL (80.0-94.0); Mean Platelet Volume 10.9 fL (7.4-10.4); Platelet Count 157 10^3/uL (130-400); Red Blood Cell Count 2.71 10^6/uL (4.70-6.10); Red Cell Dist. Width 25.6 % (11.5-14.5); White Blood Cell Count 14.2 10^3/uL (4.8-10.8)
[2024-08-17 04:48] LABS: Blood Urea Nitrogen 55 mg/dl (9-20); Calcium 7.1 mg/dl (8.4-10.2); Carbon Dioxide 23 mmol/L (22-30); Chloride 102 mmol/L (98-107); Estimated Creatinine Clearance 22 ml/min; Glucose 106 mg/dl (70-99); Potassium 3.9 mmol/L (3.5-5.1); Sodium 137 mmol/L (135-145); eGFR 13.63
[2024-08-17] MEDS: FLAGYL 500 MG 100 IV ×3 (05:05→21:37)
[2024-08-17 06:17] LABS: Glucose - Point of Care 109 mg/dl (70-99)
[2024-08-17] MEDS: NSS (PRESERVATIVE FREE) 10 ML IV ×2 (07:15→19:53)
[2024-08-17] MEDS: PROTONIX IV 40 MG IV ×2 (07:15→19:53)
[2024-08-17] MEDS: HYDROPHOR 1 APPLIC TOPICAL (07:16)
[2024-08-17] MEDS: DUONEB 3 ML INH ×3 (07:24→19:20)
[2024-08-17] MEDS: SANTYL OINTMENT 1 APPLIC TOPICAL (07:46)
--- NOTE | 2024-08-17 07:56 | PTCARENOTE ---
report received, assessments per work list. patient awakens easily, follows commands. no nonverbal pain cues. patient shook head 'no' when asked if in discomfort. monitor afib. Levophed per work list. left radial arterial line with cuff correlation,
but positional. right dual lumen picc and left midline patent with good blood returns. + 2 generalized anasarca. abdomen obese soft, hypoactive bowel sounds. ngt placement verified by air auscultation. minimal edouard brown output. ett to vent,
suctions for large amount thick edouard secretions. wrist restraints maintained for patient safety
--- NOTE | 2024-08-17 08:05 | W.PN.NEPH.PH ---
Today's Communication / Plan
-
HD tomorrow
MAP ~66 with pressor (currently weaning)
Assessment/Plan
-
64-year-old man with recently diagnosed colorectal cancer with possible lung metastasis and recent diagnosis of atrial fibrillation who presented with lightheadedness and dizziness after starting oral metoprolol as an outpatient and presented to
[facility] emergency department. He presented in acute kidney injury admitted to the floors upgraded to the ICU for increased work of breathing ultimately intubated in the ICU with hyperkalemia.
Patient is critically ill on pressor support essentially anuric.
Positive blood cultures pending organism. Staph aureus sputum culture.
Renal consult for acute kidney injury and hyperkalemia
Impression.
Acute kidney injury and hyperkalemia secondary to septic shock.
Colorectal cancer newly diagnosed June 2024 with possible lung metastasis
Atrial fibrillation on oral anticoagulation
VDRF
Bacteremia/sepsis
Plan.
remains intubated (fio2 40%)and on one pressor support
plan HD today with limited UF, if did not tolerate may switch to CRRT
abx per ID
monitor h/h , concern of GIB , hgb down to 7.8, NGT in place
d/w and nursing
CC time spent 31min
-
-
Date of Service: August 17, 2024
CC / HPI / ROS
-
Chief Complaint:
Septic shock
History of Present Illness:
tolerated HD on 08/09 and 08/11, 08/14
Hemoglobin low at 7.8
needed to reintubated and on single pressor
WBC is high 14
bladder scan 357cc
Review of Systems:.
awake and intubated
no fever, on 40% FIo2
Labs
-
Labs:
WBC 14.2 10^3/uL (4.8-10.8) H 08/17/24 03:57
RBC 2.71 10^6/uL (4.70-6.10) L 08/17/24 03:57
Hgb 7.8 g/dL (13.0-18.0) L 08/17/24 03:57
Hct 24.5 % (39.0-52.0) L 08/17/24 03:57
Plt Count 157 10^3/uL (130-400) 08/17/24 03:57
Sodium 137 mmol/L (135-145) 08/17/24 03:57
Potassium 3.9 mmol/L (3.5-5.1) 08/17/24 03:57
Chloride 102 mmol/L (98-107) 08/17/24 03:57
Carbon Dioxide 23 mmol/L (22-30) 08/17/24 03:57
BUN 55 mg/dl (9-20) H 08/17/24 03:57
Creatinine 4.6 mg/dL (0.7-1.3) H* 08/17/24 03:57
eGFR 13.63 08/17/24 03:57
Glucose 106 mg/dl (70-99) H 08/17/24 03:57
Calcium 7.1 mg/dl (8.4-10.2) L 08/17/24 03:57
Phosphorus 4.5 mg/dl (2.5-4.5) 08/08/24 08:31
Xcz-W-Veydgjoqfyj Pept 2850 pg/ml 08/06/24 03:26
Albumin 2.8 g/dl (3.5-5.0) L 08/14/24 05:48
Physical Exam
-
Vital Signs:
Vital Signs
Temp Pulse Resp BP Pulse Ox
97.5 F 96 14 141/34 98
08/17/24 03:34 08/17/24 07:30 08/17/24 07:30 08/16/24 15:40 08/17/24 08:00
Cardiovascular:: Irregular rate and rhythm
Respiratory:: Bilateral: Coarse
Lung Excursion:: Normal
Abdomen:: Nontender and Soft
Extremity Edema:: +1: Bilateral: (trace)
Alvarez Catheter: No
Other Findings::
GEN; intubated but awake
HEENT: NGT
[2024-08-17] MEDS: SUBLIMAZE 50 MCG IV (08:42)
--- NOTE | 2024-08-17 08:52 | PTCARENOTE ---
patient placed on sedation vacation, became agitated. increased nonverbal pain cues. medicated with fentanyl per prn order. placed on vent wean by RT. spouse at bedside. updated with plan of care
--- NOTE | 2024-08-17 09:13 | W.PN.CARDCBS ---
Today's Communication / Plan
-
Remains in A-fib, beta-nirav on hold while requiring pressors, will resume for rate control as hemodynamics allow
Impression / Plan
-
Primary Playground Official: Dr. Hiren Vicente
Impression:
MSOF (resp failure, CHF, liver failure, renal failure)
Recent diagnosis paroxysmal atrial fibrillation with recurrent AFib with RVR
splenic infarct
GI bleeding
Hypotension previously requiring pressors
CHRISS (likely as a consequence of hypotension, possibly from septic shock versus cardiogenic shock or combination of both)
Acute hypoxic respiratory failure requiring intubation 07/31/24
Liver failure (likely as a consequence of hypotension, possibly from septic shock versus cardiogenic shock or combination of both)
Fever
Sepsis, s aureus PNA, possible S aureus bacteremia
Acute diastolic CHF
Colorectal cancer, suspected metastatic, diagnosed 06/22/2024, not yet started on therapy
Pulmonary nodule with concern for metastasis, scheduled for lung biopsy 08/03
Hypertension
Hyperlipidemia
Obstructive sleep apnea
Obesity
Edema
ECHO 07/31/24: Normal LV function. LVEF is 55-60%. No wall motion abnormality. Top normal right ventricular size with normal RV function. Mild AI and mild TR. Estimated pulmonary artery pressure of 38 mmHg
Plan:
-Presented MSOF (resp failure, CHF, liver failure, renal failure), shock, sepsis, lactic acidosis
-currently on levo @14, vaso @0.04.
-remains in persistent afib with adequate HR control on review of tele, follow. holding BB given need for pressors.
-evidence of splenic infarct by imaging 08/06/24
-he had bloody BM on IV heparin earlier in hospital stay. not felt to be present OAC candidate due to being high risk for recurrent GI bleeding due to rectal masses per GI. hgb stable. He is [id number] score of 1 (hypertension). once recovered,
could consider candidacy for watchman.
-echo with preserved EF this admission.
-started on HD this admission, continue volume mgmt as able through HD
-d/w nursing
HPI:
64-year-old man with recently diagnosed colorectal cancer with possible lung metastasis and recent diagnosis of atrial fibrillation who presented with lightheadedness and dizziness after starting oral metoprolol as an outpatient and presented to
[place] emergency department for further management. After being found to have CHRISS and anemia he was admitted for further management. Unfortunately developed increased work of breathing this morning, became tachycardic and was found to be
febrile. Did not clinically improve with BiPAP and he was subsequently intubated and transferred to the medical ICU for further management. Currently being treated with broad-spectrum antibiotics and requiring pressor support.
Seen in the outpatient cardiology office 07/26/24 and was in AF with a rapid ventricular rate of 130 bpm. At that visit he had yet to initiate Toprol-XL which was ordered by his primary care physician. At that office visit he agreed to initiate
Toprol-XL 25 mg daily for rate control with plan to defer recommendations regarding rhythm control until he was adequately anticoagulated (atrial fibrillation of unknown duration) and to allow for intermittent interruption of anticoagulation for
planned upcoming procedures regarding his recently diagnosed colorectal cancer with likely pulmonary metastases (bronchoscopy, port placement, colorectal surgery). Eliquis 5 mg twice daily was also initiated on 07/26/24..
Cardiology is consulted for possible heart failure as a cause of his respiratory decompensation. proBNP was mildly elevated (3210), it is possible there is some component of heart failure with preserved ejection fraction.
On presentation to the emergency department 07/30/24, he was in atrial fibrillation with reasonably controlled ventricular rate of 105 bpm. EKG of July 31, 2024 finds sinus rhythm at 77 bpm.
Progress Note - Playground Official
Subjective
Date of Service: August 17, 2024
Remains in ICU where he is intubated and sedated. Episode of hypoxia yesterday thought to be d/t mucus plugging.
Objective
Labs:
08/17/24 03:57
08/17/24 03:57
Labs
Hgb 7.8 g/dL (13.0-18.0) L 08/17/24 03:57
Hct 24.5 % (39.0-52.0) L 08/17/24 03:57
Plt Count 157 10^3/uL (130-400) 08/17/24 03:57
PT 19.5 Sec (11.4-14.6) H 08/07/24 11:27
INR 1.62 08/07/24 11:27
APTT 54.9 Sec (23.4-35.0) H 08/07/24 11:27
Sodium 137 mmol/L (135-145) 08/17/24 03:57
Potassium 3.9 mmol/L (3.5-5.1) 08/17/24 03:57
BUN 55 mg/dl (9-20) H 08/17/24 03:57
Creatinine 4.6 mg/dL (0.7-1.3) H* 08/17/24 03:57
Glucose 106 mg/dl (70-99) H 08/17/24 03:57
Troponins
08/15/24
04:18
Troponin I 0.161 H*
Vital Signs and I&O:
Vital Signs
Temp Pulse Resp BP Pulse Ox
98.4 F 126 16 110/40 98
08/17/24 07:35 08/17/24 08:45 08/17/24 08:45 08/17/24 07:57 08/17/24 08:45
Vital Signs
Temp Pulse Resp BP Pulse Ox
98.4 F 126 16 110/40 98
08/17/24 07:35 08/17/24 08:45 08/17/24 08:45 08/17/24 07:57 08/17/24 08:45
Intake & Output
08/15/24 08/16/24 08/17/24 08/18/24
06:59 06:59 06:59 06:59
Intake Total 1865.3 / 5.8 1868.7 / 1924.8 110.4 / 110.4
Output Total 190 / 190 300 / 300
Balance 1675.3 / 1735.8 1568.7 / 1624.8 110.4 / 110.4
Physical Exam
Physical Exam
Gen: NAD
HEENT: NC/AT, sclera anicteric
Neck: No JVD
CV: Irregularly irregular, NL s1/s2, no M/R/G
Lungs: Mechanically ventilated
Abd: S/ND
Ext: No LE edema
Skin: Warm, dry.
Neuro: Sedated
--- NOTE | 2024-08-17 09:51 | W.PN.ID1 ---
Date of Service
Date of Service: August 17, 2024
Today's Communication
- c/w IV cefepime and metronidazole
Assessment / Plan
Relapsed shock without a clear source
Colonization with C difficile
Possible UTI
S aureus (MSSA) Pneumonia - resolved
Strep salivarius bacteremia x 2 sets drawn at the same time - most likely contaminant
CHRISS on HD
Class III Obesity
Colorectal Adenocarcinoma - not yet on treatment
Psoriatic Arthritis - currently off of Enbrel since ~05/03
Ileus
- blood cultures x2 in progress
- covid and influenza negative 08/15
- UA mild pyuria
- no C diff toxin production at this time
- c/w IV cefepime and metronidazole
- follow clinically
Chief Complaint
-: Pneumonia (S aureus), Bacteremia (streptococcus) and Other (shock)
Subjective / Review of Systems
afebrile
declining pressor requirements, vasopressin off
large amount of thick edouard secretions noted
mucous plugging yesterday - near cardiopulmonary arrest, resolved with deep suctioning
Vital Signs / Physical Exam
Vital Signs
Vital Signs
Temp Pulse Resp BP Pulse Ox
98.4 F 114 19 110/40 99
08/17/24 07:35 08/17/24 09:45 08/17/24 09:45 08/17/24 07:57 08/17/24 09:45
Physical Exam
Constitutional: Acutely Ill and Chronically Ill
Cardiovascular: Regular Rate and S1/S2; Negative Murmur or Rub
Pulmonary: Clear and Symmetric; Negative Wheezes or Rales
Gastrointestinal: Soft, Non Tender, Non Distended and Normal Bowel Sounds
Skin: Warm and Dry; Negative Rash or Jaundice
Objective Data
Lab Data
Lab Results
08/17/24 03:57
08/17/24 03:57
PT 19.5 Sec (11.4-14.6) H 08/07/24 11:27
INR 1.62 08/07/24 11:27
APTT 54.9 Sec (23.4-35.0) H 08/07/24 11:27
Estimated Creat Clear 22 ml/min 08/17/24 03:57
Lactic Acid 1.7 mmol/L (0.7-2.0) 08/06/24 03:26
Total Bilirubin 4.1 mg/dl (0.2-1.3) H 08/14/24 05:48
AST 229 U/L (17-59) H 08/14/24 05:48
ALT 103 U/L (0-50) H 08/14/24 05:48
Alkaline Phosphatase 340 U/L (38-126) H 08/14/24 05:48
Most recent labs reviewed.
Micro Results:
08/15/24 04:30 Blood Culture - Preliminary
Blood/Venous No Growth in 48 hours- Final report to follow
08/15/24 04:30 Blood Culture - Preliminary
Blood/Venous No Growth in 48 hours- Final report to follow
08/16/24 16:18 C. difficile GDH Antigen & Toxins - Final
Feces/Stool C. difficile antigen positive, toxin negative.
Clostridium difficile present, but toxin not detected.
Patient may be a carrier, colonized with nontoxinogenic
strain or the level of toxin in sample is below detection
limits. This information should be used in conjunction with
the patient's clinical history.
08/16/24 11:25 Urine Culture - Pending
Urine
08/13/24 05:31 Salmonella/Shigella Culture - Final
Feces/Stool No Salmonella, Shigella, Aeromonas or Plesiomonas species
isolated.
Campylobacter Culture - Final
No Campylobacter species isolated.
Shiga Toxin Test - Final
No E. coli Shiga Toxin 1 or 2 detected.
Stool Leukocytes - Final
08/15/24 04:21 Influenza Types A & B (KHANG) - Final
Nasal Swab Negative for Influenza A & B, NAAT
Negative results must be combined with clinical observations
and patient history.
Nucleic Acid Amplification test (NAAT)performed on the
GMI platform.
08/13/24 05:31 C. difficile GDH Antigen & Toxins - Final
Feces/Stool C. difficile antigen positive, toxin negative.
Clostridium difficile present, but toxin not detected.
Patient may be a carrier, colonized with nontoxinogenic
strain or the level of toxin in sample is below detection
limits. This information should be used in conjunction with
the patient's clinical history.
- Final
Negative for Norovirus GI and GII.
08/07/24 11:39 Blood Culture - Final
Blood/Venous No Growth - Final Report
08/07/24 11:27 Blood Culture - Final
Blood/Venous No Growth - Final Report
08/07/24 10:52 Respiratory Culture - Final
Sputum NO GROWTH
Gram Stain - Final
08/03/24 03:28 Blood Culture - Final
Blood/Venous No Growth - Final Report
08/03/24 03:41 Blood Culture - Final
Blood/Venous No Growth - Final Report
08/01/24 18:19 Blood Culture - Final
Blood/Venous No Growth - Final Report
08/01/24 15:36 Blood Culture - Final
Blood/Venous No Growth - Final Report
07/31/24 12:18 Respiratory Culture - Final
Endotracheal S aureus-Methicillin Sensitive
Gram Stain - Final
07/31/24 07:54 Blood Culture - Final
Blood/Venous Streptococcus salivarius
Gram Stain - Final
07/31/24 07:54 Blood Culture - Final
Blood/Venous Streptococcus salivarius
Gram Stain - Final
07/31/24 11:49 Legionella Urinary Antigen - Final
Urine Negative for Legionella pneumophila Serogroup 1 antigen.
A negative result does not rule out the possiblity of
Legionella infection due to other serogroups or species of
Legionella. Clinical correlation is recommended.
Streptococcus pneumoniae Antigen (M - Final
Negative for Streptococcus pneumoniae antigen.
A negative result does not exclude infection with
Streptococcus pneumoniae. Clinical correlation is
recommended.
07/31/24 12:18 Nasal Screen MRSA (PCR) - Final
Nose MRSA not detected - performed by PCR methodology.
07/31/24 08:10 Influenza Types A & B (KHANG) - Final
Nasal Swab Negative for Influenza A & B, NAAT
Negative results must be combined with clinical observations
and patient history.
Nucleic Acid Amplification test (NAAT)performed on the
GMI platform.
08/04/24 CXR: Moderate pulmonary edema, without significant change.
Care Review
Plan reviewed with: Physician (Dr Andreas handy)
[2024-08-17 09:59] LABS: B.E. -2.7 mmol/L; HCO3 21.7 mmol/L (21-28); O2 Saturation % 99.9 % (94-98); PCO2 35 mmHg (35-48); PO2 177 mmHg (83-108)
--- NOTE | 2024-08-17 10:17 | CM ---
Chart reviewed. Pt has been accepted at [facility].
Met pt and spouse bedside to provide [facility] welcome letter that confirms location and start date of 08/27. Spouse stated she was informed it would be ok to push that date back if needed.
Pt remains intubated at this time. Rehab referrals pending w/ [facility] and [facility]. CM will follow up w/ acceptance for pt closer to d/c.
Plan: Will cont. to follow closely for DC planning needs.
--- NOTE | 2024-08-17 10:21 | PTCARENOTE ---
patient extubated to 40% aerosol face mask without issue@[id number]
--- NOTE | 2024-08-17 11:17 | W.PN.INTV ---
Today's Communication / Plan
Recommendations
Extubated today
Continue secretion clearance interventions
Wean off oxygen
Follow H&H later today and if declining will need to have GI [id number] on NG tube
Wean off vasopressors
Continue antibiotics for now
Hopefully speech evaluation and physical therapy later
Dialysis tomorrow
Assessment
-
Impression
Patient is a 64-year-old male, recently diagnosed with colorectal carcinoma and the disease is presumably advanced, had a lung nodule that was supposed to be biopsied but patient ended up in the ER for dizziness secondary to recent atrial
fibrillation. As his workup was being done in the ER for CHRISS and anemia along with dizziness, patient decompensated, had acute respiratory failure, nonresponsive to nonrebreather mask and noninvasive ventilation, ended up in ICU, rapid response was
called, had to be intubated.
Assessment:
# Acute respiratory failure requiring intubation mechanical ventilation 08/15/2024
-
# Atrial fibrillation with rapid ventricular response - now rate controlled
# Change in mental status - now more alert
#Acute rectal bleeding in the setting of colorectal carcinoma/heparin infusion - now resolved
#Acute respiratory failure - improved and now on room air
#CHRISS now on CRRT - remains on iHD and off CRRT
#Streptococcal bacteremia via BCx from 07/31/2024
#Acute HFpEF exacerbation
#Metabolic acidosis with increased anion gap due to severe CHRISS
#Transaminitis secondary to hypoxic liver
#Hx of HAN
Other chronic medical conditions:
#Metastatic colorectal cancer with suspected lung metastasis (diagnosed via colonoscopy on 06/22/2024 with partially obstructing tumor seen in the rectum 4 cm from the anal verge, invasive low-grade colorectal adenocarcinoma)
#PET avid 2.2 cm right upper lobe nodule originally planned for robotic bronchoscopy on 08/03/2024 (will be deferred for now)
#HAN on auto CPAP
#History of psoriasis previously on Enbrel
#History of hepatitis A
#History of COVID-19 (03/2024)
#Restrictive lung disease (suspected based on spirometry from 05/15/2021, however patient was coughing during testing and post-bronchodilator FVC was WNL at 84% predicted)
Plan:
-
Transfer back to the critical care unit 08/15/2024 after developing overnight increased work of breathing. Failed BiPAP therapy intubated emergently.
-
Last night with significant mucous plug: Unable to ventilate. After vigorous suctioning if thick mucus plug was clear. Improvement on ventilation and hemodynamics.
No CPR was given.
Perhaps this was the reason for his recent decompensation and reintubation per
-
Acute respiratory failure-intubated on mechanical ventilation
Patient was on mechanical ventilation since 07/31/2024 --> extubated on 08/08/2024
Reintubated 08/15/2024.
Chest x-ray reviewed: ET tube in place, no pneumothorax. Left lower lobe abnormality
Mechanical ventilation settings reviewed-pulmonary mechanics acceptable
Not bronchospastic on exam
AB08/15/2024: 7.4/32/150-adequate oxygenation and ventilation.
Continue mechanical ventilation without change
Chest x-ray08/16/2024: No acute infiltrates.
-
With sedation breaks 08/17/2024: Patient following commands, able to ventilate.
Spontaneous breathing trial performed for over 40 minutes, ABG showed adequate oxygenation and ventilation. Hemodynamically not decompensated. Not significantly tachypneic.
Not bronchospastic
Extubated 08/17/2026.
-
Secretion clearance intervention: Nebulizers 3 times a day as needed
Acapella device
Percussion therapy
May need to add mucolytic's.
-
Discontinue all sedation
-
Etiology for respiratory failure and increased work of breathing unclear to me. Possibly due to mucous plugging.
Lower extremity Dopplers ordered by me 08/15/2024: No evidence for deep venous thrombosis.
Thromboembolic disease less likely, not significantly tachycardic.
-
Patient is in shock requiring Levophed: Rule out sepsis
Continue Levophed maintain mean arterial blood pressure 65 mmHg. Improved requirement to 01/27/2025
Vasopressin discontinue
Peter-Synephrine never started
Cortisol level is adequate.
Follow leukocytosis.
Afebrile
Infectious disease correspondence reviewed-Zosyn will continue
Oral vancomycin added
Repeat cultures-pending. Negative so far.
influenza negative
Recent C. difficile - 08/13/2024
Chest x-ray not impressive for pulmonary source.
-
#Streptococcal salivarious bacteremia
Echo repeated on 08/07/2024-There is no evidence of vegetation or embolic source seen.
New splenic infarct --> Repeat blood cultures have showing NGTD since 07/12/2024
History of MSSA pneumonia.
-
NG tube with dark output-possible gastritis.
PPI twice a day
Hemoglobin declining. 7.8.
Repeat H&H later today, may need to get GI involved again. No melena noted
-
# Atrial fibrillation with rapid ventricular response-rate is controlled
Troponin trending lower 08/15/2024
- Goal HR<110
-Continue with metoprolol 75 mg PO q6hr
Not on anticoagulation due to recent GI bleed and low platelet counts
SYL panel negative from 08/08/2024
Cardiology following-recommendations appreciated
# Change in mental status-apparently he was back to baseline prior to this event. Sedation breaks as able to
On 08/08, patient's mental status was altered in terms of responsiveness, CT scan of head was repeated showing no acute intracranial abnormality.
Likely delirium.
-
#Acute rectal bleeding in the setting of colorectal carcinoma/heparin infusion
Patient had bloody bowel movements on 08/06/2024 with roughly 1 L of blood loss
Colorectal surgery consult apprec-CTA negative for active GI bleed
Hemoglobin remained stable around 8, no further bleed, GI signed off
Platelet counts continued to drop-HIT panel negative --> now platelet counts are starting to improve, 160 today
Follow hemoglobin, transfuse if needed to keep Hb >7 g/dL
Not yet on therapy for his colon cancer.
-
After extubation continue nocturnal BiPAP for history of obstructive sleep apnea.
-
#CHRISS now on CRRT
Patient has had worsening renal creatinine function --->placed on CRRT on August 01, 2024-tunneled catheter placed.
Nephro consult appreciated-on intermittent hemodialysis, Alvarez catheter out
HD per nephrology
#Metabolic acidosis with increased anion gap due to severe CHRISS and lactic acidosis
Continue dialysis
#Transaminitis secondary to hypoxic liver
Patient had a shock liver response to hypoperfusion secondary to septic shock/cardiogenic shock
AST was greater than 7500 and ALT was greater than 4000
LFTs improved - continue to trend
-
Dr. Sun updated at the bedside-Limited DNR.
Patient has metastatic colon cancer per
DVT prophylaxis-Sequential compression devices-not a candidate for pharmacological prophylaxis due to GI bleed.
Dr. Sun updated at the bedside 08/16/2024 and 08/17/2024
Critical care statement: A total of 33 minutes of critical care time was provided for this patient today. This includes management of unstable vital signs, evaluation of the patient at bedside, reviewing the patient's pertinent medical records
including ventilator settings, arterial blood gases, radiographs, microbiology, laboratory evaluations and discussion with primary team, critical care nursing, and respiratory therapy.
Subjective Dataa
Subjective Data
Date of Service:
Date of Service: August 17, 2024
Chief Complaint: Clinic Coordinator Follow Up, Pulmonary Follow Up and Vent Management Follow Up
Subjective:
Remains critically ill on mechanical ventilation
Last night with significant mucous plug.
This morning mechanical ventilation settings are adequate
With sedation breaks following commands
Review of Systems
General: Other (Difficult to obtain due to intubation*)
Objective Data
Data Reviewed
Vital Signs / I&O / Oxygen:
Vital Signs
Temp Pulse Resp BP Pulse Ox
98.4 F 129 32 110/40 97
08/17/24 07:35 08/17/24 10:45 08/17/24 10:45 08/17/24 07:57 08/17/24 10:45
Intake and Output
08/16/24 08/17/24 08/18/24
06:59 06:59 06:59
Intake Total 1865.3 / 1925.8 1868.7 / 1924.8 176.7 / 176.7
Output Total 190 / 190 300 / 300
Balance 1675.3 / 1735.8 1568.7 / 1624.8 176.7 / 176.7
SaO2 [CPAP] 98
SaO2 [A/C] 98
SaO2 97
Nasal Cannula flow liters per 2
minute
Physical Exam
General: Comfortable and Other (Sedated, mechanical ventilation.)
HEENT: Normocephalic, Anicteric and Other ( ET tube in place without secretion)
Cardiovascular: S1-S2, Irregular Rhythm, Murmur (n), Rub (n) and Peripheral Edema (+1 lower extremity edema bilaterally, right anterior chest HD catheter, right upper extremity PICC, left upper extremity midline)
Respiratory: Clear, Wheeze (n), Crackles (n), Rhonchi (n) and Other (Decreased at base)
GI: Soft, Non Distended and Normal Bowel Sounds
Neurology: Awake, Alert, No Motor Deficits (Moving all extremities) and Other (Following commands, hands and legs, more alert today, BiPAP in place)
Skin: Cyanosis (n), Jaundice (y), Rash (n) and Bruising (n)
Labs/Micro/Reports
Lab Data
08/17/24 03:57
08/17/24 03:57
Laboratory Results
08/17/24 08/17/24
03:57 09:45
pH 7.48 H 7.40
pCO2 31 L 35
pO2 148 H 177 H
HCO3 23.1 21.7
O2 Delivery Level
Microbiology
08/15/24 04:30 Blood/Venous Blood Culture - Preliminary
No Growth in 48 hours- Final report to follow
08/15/24 04:30 Blood/Venous Blood Culture - Preliminary
No Growth in 48 hours- Final report to follow
08/16/24 16:18 Feces/Stool C. difficile GDH Antigen & Toxins - Final
C. difficile antigen positive, toxin negative.
Clostridium difficile present, but toxin not detected.
Patient may be a carrier, colonized with nontoxinogenic
strain or the level of toxin in sample is below detection
limits. This information should be used in conjunction with
the patient's clinical history.
08/13/24 05:31 Feces/Stool Salmonella/Shigella Culture - Final
No Salmonella, Shigella, Aeromonas or Plesiomonas species
isolated.
08/13/24 05:31 Feces/Stool Campylobacter Culture - Final
No Campylobacter species isolated.
08/13/24 05:31 Feces/Stool Shiga Toxin Test - Final
No E. coli Shiga Toxin 1 or 2 detected.
08/13/24 05:31 Feces/Stool Stool Leukocytes - Final
08/15/24 04:21 Nasal Swab Influenza Types A & B (KHANG) - Final
Negative for Influenza A & B, NAAT
Negative results must be combined with clinical observations
and patient history.
Nucleic Acid Amplification test (NAAT)performed on the
[employer] platform.
--- NOTE | 2024-08-17 11:37 | W.PN.HOSP.TC ---
Today's Communication/Plan
-
Monitor vital signs see plan
Remains in A-fib
Currently on SBT, if tolerates then plan for extubation later today
Wean pressors as tolerated
Monitor leukocytosis
continue with deep suctioning
Discussed with spouse at bedside
Assessment / Plan
Assessment / Plan
Mr. Иван Redd is a 64-year-old man with a past medical history of recently diagnosed colorectal cancer, persistent atrial fibrillation, essential hypertension who presents to the ER with dizziness. Patient reports feeling unwell for the last
2 days. He was recently started on metoprolol and Eliquis for atrial fibrillation. Overnight admission patient developed acute respiratory failure in setting of high fever with finding MSSA in blood and sputum; development of renal failure
requiring CRRT.
Assessment:
Acute Respiratory Failure requiring intubation
MSSA Bacteremia and Pneumonia
Septic Shock
Acute Renal Failure with acute HFpEF (pulm edema)
Hyperkalemia
Lactic Acidosis
Non-Ischemic Myocardial Injury
-s/p intubation morning of 07/31 during rapid response; extubated 08/08 to BIPAP (now just BIPAP is nocturnal). was on Room air
-initial concern for flash pulmonary edema given acute SOB, CXR read and patient had been receiving IVF. IV lasix given without significant output and worsening renal function; renal consulted and patient initiated on CRRT on 08/01 given worsening
renal function, essentially no urine output and hyperkalemia. CRRT now stopped and now on HD via tunneled cath. HD schedule per Nephrology.
-08/01: culture results showing MSSA in Sputum and Blood
-TTE results above - no vegetation
-completed Unasyn course
-off pressors
-off sedation
-Cigarette Catcher Consult appreciated
-Cardiology consult appreciated
-Nephrology consult appreciated
08/15/2024 morning, patient started having increased work of breathing and could not tolerate BiPAP. Now intubated. Cigarette Catcher following. Wean vent as tolerated. wean sedation as tolerated. Currently on SBT, if tolerates then plan for extubation
08/16/2024, patient was unable to be ventilated properly, status post deep suction. Appears mucous plug. Oxygenation later improved after suctioning.
Appears to be in shock. Currently on Levophed,vaso, wean pressors.
Unclear if there was any aspiration event, given worsening leukocytosis and intubation. On cefepime and Flagyl. ID following
Blood culture NGTD
Fluid negative
Venous Doppler negative for DVT
cdiff antigen positive, toxin negative. P.o. vancomycin while on antibiotics
Acute lower GI bleed (exacerbated by IV heparin)
Known history of colorectal Adenocarcinoma with possible lung mets
- s/p CTA without active bleeding source. No role for IR intervention. Source felt be related to known colon masses, although diverticular disease or AVMs possible.
- was previously Scheduled for lung biopsy as outpatient
- patient had not yet started chemotherapy
- GI following
NGT draining with black liquid, made PPI BID. Monitor hemoglobin. Could likely be secondary to ileus
Persistent Atrial Fibrillation
- off anticoagulation with active bleed episode; family aware of stroke risk
Metoprolol on hold due to hypotension
TME from multifactorial
-critical illness, recent sedation
-monitor mentation
-CTH negative 08/08
-s/p VSE /; now on dysphagia diet. ongoing speech evals.
Constipation
- bowel regimen prn
Essential Hypertension
- hold BELL RINGER Olmesartan-HCTZ
Hold metoprolol
Hyperlipidemia
- hold rosuvastatin
acute Thrombocytopenia
- HIT panel negative
Monitor
sacral/buttocks DTI
- fecal management system placement attempted, unable to stay in per RN
- wound care service following; suspect stage III or stage IV pressure injury. Consider surgical evaluation if symptoms do not improve
ID is also following
DVT ppx: SCDs
Code: Limited DNR, discussed with spouse
General: Intubated
HEENT: Normocephalic and Atraumatic
Respiratory: Ventilated breath sounds
Cardiac: irregular Rhythm and S1/S2
GI: Soft and Nontender
Genito-urinary: No Costovertebral Tender
Musculoskeletal: No Edema
Neuro: Sedated
Psych: Calm
I spent a total of 51 minutes with the patient or on the floor. More than 50% of this time involved counseling and coordination of care.
Anticipated Discharge: > 48 hours
Subjective/Interval History
-
Date of Service: August 17, 2024
Intubated
Objective Data
-
Labs:
Laboratory Results
08/17/24 08/17/24 08/17/24
03:57 09:45 13:00
WBC 14.2 H
Hgb 7.8 L Pending
Hct 24.5 L Pending
Plt Count 157
HCO3 23.1 21.7
Sodium 137
Potassium 3.9
Chloride 102
Carbon Dioxide 23
BUN 55 H
Creatinine 4.6 H*
Glucose 106 H
Calcium 7.1 L
Vital Signs:
Vital Signs
Temp Pulse Resp BP Pulse Ox
98.4 F 129 32 110/40 97
08/17/24 07:35 08/17/24 10:45 08/17/24 10:45 08/17/24 07:57 08/17/24 10:45
I&O
08/16/24 08/17/24 08/18/24
06:59 06:59 06:59
Intake Total 1865.3 / 1925.8 1868.7 / 1924.8 176.7 / 176.7
Output Total 190 / 190 300 / 300
Balance 1675.3 / 1735.8 1568.7 / 1624.8 176.7 / 176.7
[2024-08-17 11:59] LABS: Glucose - Point of Care 105 mg/dl (70-99)
--- NOTE | 2024-08-17 12:21 | PTCARENOTE ---
patient reassessed, coughing up very thick edouard secretions, using yankaur to assist. levophed wean per work list.
[2024-08-17 13:25] LABS: Hematocrit 24.2 % (39.0-52.0); Hemoglobin 7.8 g/dL (13.0-18.0)
[2024-08-17] MEDS: MAXIPIME 1000 MG IV (13:32)
[2024-08-17] MEDS: STERILE WATER FOR INJECTION 10 ML IV (13:33)
--- NOTE | 2024-08-17 15:04 | PTCARENOTE ---
after coughing spell, patient used yankaur and ngt then was noted to be curled in the back of his throat, removed without issue
[2024-08-17] MEDS: LEVOPHED 258 MG IV (15:42)
--- NOTE | 2024-08-17 16:51 | PTCARENOTE ---
reassessed. levophed per work list. on room air with pulse oximeter 93-96. continues to cough up large amounts thick edouard blood tinged sputum. ST in to evaluate
--- NOTE | 2024-08-17 16:56 | PTOTSP ---
Dysphagia Therapy
Impression: History of mild oral/pharyngeal dysphagia with silent aspiration (no cough) of thin liquids via straw on video swallow study 08/13/2024. Cannot r/o silent aspiration bedside at this time after reintubation 08/15-08/17. Patient/family opting
to initiate diet understanding this.
Plan of care:
1. IDDSI Level 4 Puree, IDDSI Level 2 Mildly Thick
2. Medications: in puree
3. Strategies: full supervision, assist as needed, single sips, slow rate, alternate sips/bites to assist with oral/pharyngeal clearance
4. Dysphagia tx at the acute care level. Consider repeat video swallow study 08/19.
--- NOTE | 2024-08-17 17:30 | PTCARENOTE ---
patient voice hoarse, alert and oriented, but no recollection of previous days events. diet ordered. pm care provided. spouse updated at bedside
[2024-08-17 17:31] LABS: Glucose - Point of Care 100 mg/dl (70-99)
--- NOTE | 2024-08-17 20:00 | PTCARENOTE ---
Pt received start of shift. HR afib w/ occasional PVCs on telemetry. Arterial line zeroed. Pt AAOx3 with occasional confusion. Pt asked when the doctor was going to perform his lobotomy tomorrow - reoriented to plan of care easily. Pt stated he was
thinking about hemodialysis treatment. Percussion therapy q4h per order. Pt w/ productive cough - suctioning self orally w/ yankauer. Levo infusing at 8mcg/min. RA, SpO2 98%.
[2024-08-17 23:48] LABS: Glucose - Point of Care 118 mg/dl (70-99)
[2024-08-18] VITALS (77 sets, daily range): BP systolic 87–132; BP diastolic 30–77; BMI 37.7
--- NOTE | 2024-08-18 01:45 | PTCARENOTE ---
Pt reassessed. Arterial line extremely positional, numerous attempts to regain good waveform failed. Arterial line pulled. Levo infusing at 4mcg/min. Bladder scan 245mL. No bladder distention, pt states no discomfort.
[2024-08-18] MEDS: FLAGYL 500 MG 100 IV ×3 (05:05→21:38)
[2024-08-18 05:30] LABS: Glucose - Point of Care 102 mg/dl (70-99)
[2024-08-18 05:39] LABS: Blood Urea Nitrogen 67 mg/dl (9-20); Calcium 6.9 mg/dl (8.4-10.2); Carbon Dioxide 22 mmol/L (22-30); Chloride 103 mmol/L (98-107); Estimated Creatinine Clearance 18 ml/min; Glucose 89 mg/dl (70-99); Potassium 3.4 mmol/L (3.5-5.1); Sodium 136 mmol/L (135-145); eGFR 10.54
[2024-08-18 05:43] LABS: Hemoglobin 7.4 g/dL (13.0-18.0); Mean Corp Hgb Conc. 30.8 g/dL (33.0-37.0); Mean Corpuscular Hgb 28.9 pg (27.0-31.0); Mean Corpuscular Volume 93.8 fL (80.0-94.0); Mean Platelet Volume 10.7 fL (7.4-10.4); Platelet Count 148 10^3/uL (130-400); Red Blood Cell Count 2.56 10^6/uL (4.70-6.10); Red Cell Dist. Width 25.7 % (11.5-14.5); White Blood Cell Count 8.8 10^3/uL (4.8-10.8)
--- NOTE | 2024-08-18 06:30 | PTCARENOTE ---
Reassessed. Pt w/ BM, loose brown stool. Sacaral dressing soiled - redressed according to order. AM labs: K 3.4, K zoraner ordered. Ca 6.9, notified BLENDING KETTLE TENDER Mariela Duque per protocol. Still no void - BS 309.
--- NOTE | 2024-08-18 06:33 | PTCARENOTE ---
Reassessed. Pt w/ BM, loose brown stool. Sacaral dressing soiled - redressed according to order. AM labs: K 3.4, K amol ordered. Ca 6.9, notified AUTOMATIC SPINNING LATHE OPERATOR Mariela Duque per protocol.
[2024-08-18] MEDS: KCL 160 MEQ IV (06:34)
[2024-08-18] MEDS: DUONEB 3 ML INH ×3 (07:26→21:09)
--- NOTE | 2024-08-18 07:48 | W.PN.HOSP.TC ---
Today's Communication/Plan
-
Wean vasopressors as tolerated
Continue antibiotics
Appreciate Channel Executive, nephrology, cardiology and ID
Assessment / Plan
Assessment / Plan
Physical Exam
General: Not in acute distress
HEENT: Normocephalic and Atraumatic
Respiratory: Equal air entry bilaterally
Cardiac: irregular Rhythm and S1/S2
GI: Soft and Nontender. Positive bowel sounds.
Musculoskeletal: No Edema
Neuro: Alert. Awake.
Psych: Calm
Assessment/Plan
Mr. Иван Redd is a 64-year-old man with a past medical history of recently diagnosed colorectal cancer, persistent atrial fibrillation, essential hypertension who presents to the ER with dizziness. Patient reports feeling unwell for the last
2 days. He was recently started on metoprolol and Eliquis for atrial fibrillation. Overnight admission patient developed acute respiratory failure in setting of high fever with finding MSSA in blood and sputum; development of renal failure
requiring CRRT.
Acute Respiratory Failure requiring intubation
MSSA Bacteremia and Pneumonia
Septic Shock
Acute Renal Failure with acute HFpEF (pulm edema) needing dialsysis
Hyperkalemia
Lactic Acidosis
Non-Ischemic Myocardial Injury
-s/p intubation morning of 07/31 during rapid response; extubated 08/08 to BIPAP. Was on room air.
-initial concern for flash pulmonary edema given acute SOB, CXR read and patient had been receiving IVF. IV lasix given without significant output and worsening renal function; renal consulted and patient initiated on CRRT on 08/01 given worsening
renal function, essentially no urine output and hyperkalemia. CRRT now stopped and now on HD via tunneled cath. HD schedule per Nephrology.
-08/01: culture results showing MSSA in Sputum and Blood
-TTE results - no vegetation
-Channel Executive Consult appreciated
-Cardiology consult appreciated
-Nephrology consult appreciated
08/15/2024 morning, patient started having increased work of breathing and could not tolerate BiPAP. Then intubated. Channel Executive following.
08/16/2024, patient was unable to be ventilated properly, status post deep suction. Appears severe mucous plugging. Oxygenation later improved after suctioning.
NOW ON ROOM AIR (extubated on 08/17/24)
Appears to be in shock. Currently on Levophed, wean pressors. Was on Vaso previously
Unclear if there was any aspiration event, given worsening leukocytosis and intubation. On cefepime and Flagyl. ID following
Blood culture NGTD
Fluid negative
Venous Doppler negative for DVT
cdiff antigen positive, toxin negative. P.o. vancomycin while on antibiotics
#Acute lower GI bleed (exacerbated by IV heparin)
#Known history of colorectal Adenocarcinoma with possible lung mets
- s/p CTA without active bleeding source. No role for IR intervention. Source felt be related to known colon masses, although diverticular disease or AVMs possible.
- was previously Scheduled for lung biopsy as outpatient
- patient had not yet started chemotherapy
- GI following
NGT draining with black liquid, made PPI BID. Monitor hemoglobin. Could likely be secondary to ileus
#Persistent Atrial Fibrillation
- off anticoagulation with active bleed episode; family aware of stroke risk
- Metoprolol on hold due to hypotension and need for vasopressor
- not felt to be present OAC candidate due to being high risk for recurrent GI bleeding due to rectal masses per GI.
- Cardiology follow-up after discharge for possible Watchman Device placement
#TME from multifactorial
-critical illness, recent sedation
-monitor mentation
-CTH negative 08/08
-s/p VSE /; now on dysphagia diet. ongoing speech evals.
Dysphagia
-Continue speech therapy evaluations
Constipation
- bowel regimen prn
Essential Hypertension
- hold ROENTGENOLOGY TEACHER Olmesartan-HCTZ
Hold metoprolol
Hyperlipidemia
- hold rosuvastatin
acute Thrombocytopenia
- HIT panel negative
Monitor
sacral/buttocks DTI
- fecal management system placement attempted, unable to stay in per RN
- wound care service following; suspect stage III or stage IV pressure injury. Consider surgical evaluation if symptoms do not improve
ID is also following
DVT ppx: SCDs
Code: Limited DNR, discussed with spouse
Anticipated Discharge: > 48 hours
Subjective/Interval History
-
Date of Service: August 18, 2024
Patient was seen and examined. No new symptoms or complaints.
Objective Data
-
Labs:
Laboratory Results
08/18/24
04:33
WBC 8.8
Hgb 7.4 L
Hct 24.0 L
Plt Count 148
Sodium 136
Potassium 3.4 L
Chloride 103
Carbon Dioxide 22
BUN 67 H
Creatinine 5.7 H*
Glucose 89
Calcium 6.9 L*
Vital Signs:
Vital Signs
Temp Pulse Resp BP Pulse Ox
97.8 F 104 21 91/35 98
08/18/24 07:00 08/18/24 05:15 08/18/24 05:15 08/18/24 05:15 08/18/24 05:15
I&O
08/17/24 08/18/24 08/19/24
06:59 06:59 06:59
Intake Total 1868.7 / 1924.8 1242.6 / 1242.6
Output Total 300 / 300
Balance 1568.7 / 1624.8 1242.6 / 1242.6
--- NOTE | 2024-08-18 08:05 | PTCARENOTE ---
Assumed care of pt at 0715 following shift report. Pt awake and resting quietly in bed. Denies c/o pain or SOB. On RA w/ POx stable 100%. Rare moist weak nonproductive cough. Physical assessment completed as documented. Repositioned, hygiene,
comfort care provided. Call amee w/in pt reach HD RN in room and setting up to begin ordered HD. Plan of care reviewed w/ pt.
--- NOTE | 2024-08-18 08:08 | W.PN.NEPH.PH ---
Today's Communication / Plan
-
pressor support
HD today
Assessment/Plan
-
64-year-old man with recently diagnosed colorectal cancer with possible lung metastasis and recent diagnosis of atrial fibrillation who presented with lightheadedness and dizziness after starting oral metoprolol as an outpatient and presented to
[place] emergency department. He presented in acute kidney injury admitted to the floors upgraded to the ICU for increased work of breathing ultimately intubated in the ICU with hyperkalemia.
Patient is critically ill on pressor support essentially anuric.
Positive blood cultures pending organism. Staph aureus sputum culture.
Renal consult for acute kidney injury and hyperkalemia
Impression.
Acute kidney injury and hyperkalemia secondary to septic shock.
Colorectal cancer newly diagnosed June 2024 with possible lung metastasis
Atrial fibrillation on oral anticoagulation
Bacteremia/sepsis
Plan.
extubated but remains on pressor support on levophed,maintain mAP 65
plan HD today with limited UF
abx per ID
monitor h/h , concern of GIB , hgb down to 7.4, may require transfusion , will give high dose epo
CC time spent 31min
-
-
Date of Service: August 18, 2024
CC / HPI / ROS
-
Chief Complaint:
Septic shock
History of Present Illness:
tolerated HD
Hemoglobin low at 7.4
Extubated on 08/17/2024
remains on pressor support
Review of Systems:.
awake and alert
no sob or chest pain
Labs
-
Labs:
WBC 8.8 10^3/uL (4.8-10.8) 08/18/24 04:33
RBC 2.56 10^6/uL (4.70-6.10) L 08/18/24 04:33
Hgb 7.4 g/dL (13.0-18.0) L 08/18/24 04:33
Hct 24.0 % (39.0-52.0) L 08/18/24 04:33
Plt Count 148 10^3/uL (130-400) 08/18/24 04:33
Sodium 136 mmol/L (135-145) 08/18/24 04:33
Potassium 3.4 mmol/L (3.5-5.1) L 08/18/24 04:33
Chloride 103 mmol/L (98-107) 08/18/24 04:33
Carbon Dioxide 22 mmol/L (22-30) 08/18/24 04:33
BUN 67 mg/dl (9-20) H 08/18/24 04:33
Creatinine 5.7 mg/dL (0.7-1.3) H* 08/18/24 04:33
eGFR 10.54 08/18/24 04:33
Glucose 89 mg/dl (70-99) 08/18/24 04:33
Calcium 6.9 mg/dl (8.4-10.2) L* 08/18/24 04:33
Phosphorus 4.5 mg/dl (2.5-4.5) 08/08/24 08:31
Wtv-Y-Fphqjnkqdoh Pept 2850 pg/ml 08/06/24 03:26
Albumin 2.8 g/dl (3.5-5.0) L 08/14/24 05:48
Physical Exam
-
Vital Signs:
Vital Signs
Temp Pulse Resp BP Pulse Ox
97.8 F 104 21 91/35 98
08/18/24 07:00 08/18/24 05:15 08/18/24 05:15 08/18/24 05:15 08/18/24 05:15
Cardiovascular:: Irregular rate and rhythm
Respiratory:: Bilateral: Coarse
Lung Excursion:: Normal
Abdomen:: Nontender and Soft
Extremity Edema:: +1: Bilateral: (trace)
Alvarez Catheter: No
Other Findings::
GEN; intubated but awake
HEENT: NGT
--- NOTE | 2024-08-18 08:12 | W.PN.NEPH.HD ---
Assessment
-
Patient seen on dialysis
Systolic blood pressure around 100
Required reduction of UF to 1 kg due to hemodynamic instability on pressor support
No evidence of renal recovery as creatinine at 5.7
Progress Note - Hemodialysis
-
Date of Service: August 18, 2024
Duration: 30 minutes and 3 hours
Potassium Bath: 3
Calcium Bath: 2.5
Opti-Dialyzer: 160
Ultrafiltration: Other (1kg)
Blood Flow: 350
Dialysate Flow: 600
Heparin: None
EPO: 10,000
[2024-08-18] MEDS: RETACRIT 10000 UNITS IV (09:07)
--- NOTE | 2024-08-18 10:39 | W.PN.INTV ---
Today's Communication / Plan
Recommendations
Follow H&H at 1 PM
Likely will need transfusion
Will need to reconsult GI for evaluation-patient had coffee-ground's on NG tube but no further vomiting. Benign abdominal exam.
Wean off vasopressors currently at 4 mics per minute of Levophed.
Calcium repleted
Dialysis as able
Continue antibiotics
Monitor for aspiration
ICU level of care while on vasopressors.
Assessment
-
Impression
Patient is a 64-year-old male, recently diagnosed with colorectal carcinoma and the disease is presumably advanced, had a lung nodule that was supposed to be biopsied but patient ended up in the ER for dizziness secondary to recent atrial
fibrillation. As his workup was being done in the ER for CHRISS and anemia along with dizziness, patient decompensated, had acute respiratory failure, nonresponsive to nonrebreather mask and noninvasive ventilation, ended up in ICU, rapid response was
called, had to be intubated.
Assessment:
# Acute respiratory failure requiring intubation mechanical ventilation 08/15/2024
Extubated 08/17/2024
-
# Atrial fibrillation with rapid ventricular response - now rate controlled
# Change in mental status - now more alert
#Acute rectal bleeding in the setting of colorectal carcinoma/heparin infusion - now resolved
#Acute respiratory failure - improved and now on room air
#CHRISS now on CRRT - remains on iHD and off CRRT
#Streptococcal bacteremia via BCx from 07/31/2024
#Acute HFpEF exacerbation
#Metabolic acidosis with increased anion gap due to severe CHRISS
#Transaminitis secondary to hypoxic liver
#Hx of HAN
Other chronic medical conditions:
#Metastatic colorectal cancer with suspected lung metastasis (diagnosed via colonoscopy on 06/22/2024 with partially obstructing tumor seen in the rectum 4 cm from the anal verge, invasive low-grade colorectal adenocarcinoma)
#PET avid 2.2 cm right upper lobe nodule originally planned for robotic bronchoscopy on 08/03/2024 (will be deferred for now)
#HAN on auto CPAP
#History of psoriasis previously on Enbrel
#History of hepatitis A
#History of COVID-19 (03/2024)
#Restrictive lung disease (suspected based on spirometry from 05/15/2021, however patient was coughing during testing and post-bronchodilator FVC was WNL at 84% predicted)
Plan:
-
Transfer back to the critical care unit 08/15/2024 after developing overnight increased work of breathing. Failed BiPAP therapy intubated emergently.
-
Acute respiratory failure-intubated on mechanical ventilation.
Etiology for respiratory failure and increased work of breathing unclear to me. Possibly due to mucous plugging.
On room air.08/18/2024
Lower extremity Dopplers ordered by me 08/15/2024: No evidence for deep venous thrombosis.
Thromboembolic disease less likely, not significantly tachycardic.
Patient was on mechanical ventilation since 07/31/2024 --> extubated on 08/08/2024
Reintubated 08/15/2024->> extubated 08/17/2024
Chest x-ray: ET tube in place, no pneumothorax. Left lower lobe abnormality
Chest x-ray08/16/2024: No acute infiltrates.
Not bronchospastic on exam
Encourage incentive spirometry
Hopefully can get out of bed as able
-
Patient did have severe mucous plugging-inability to ventilate well on mechanical ventilation. 08/16/2024
Secretion clearance intervention: Nebulizers 3 times a day as needed.
Acapella device
Percussion therapy
Will add mucolytic therapy.
-
Patient is in shock requiring Levophed: Rule out sepsis-IMPROVED.
Continue Levophed maintain mean arterial blood pressure 65 mmHg.
Cortisol level is adequate.
Leukocytosis resolved
Afebrile
-
Infectious disease correspondence reviewed-Zosyn will continue
Oral vancomycin added
Repeat cultures-pending. Negative so far.
influenza negative
Recent C. difficile - 08/13/2024
Chest x-ray not impressive for pulmonary source.
-
#Streptococcal salivarious bacteremia
Echo repeated on 08/07/2024-There is no evidence of vegetation or embolic source seen.
New splenic infarct --> Repeat blood cultures have showing NGTD since 07/12/2024
History of MSSA pneumonia.
-
NG tube with dark output-possible gastritis.
NG tube out
No formed vomiting
Benign abdominal exam
PPI twice a day
Hemoglobin declining. Repeat H&H at 1 PM. If closer to 7 or lowering transfuse and consult GI.
So far no melena
-
# Atrial fibrillation with rapid ventricular response-rate is controlled
Troponin trending lower 08/15/2024
- Goal HR<110
-Continue with metoprolol 75 mg PO q6hr
Not on anticoagulation due to recent GI bleed and low platelet counts
SYL panel negative from 08/08/2024
Cardiology following-recommendations appreciated
# Change in mental status-apparently he was back to baseline prior to this event. Back to baseline to a 2024.
On 08/08, patient's mental status was altered in terms of responsiveness, CT scan of head was repeated showing no acute intracranial abnormality.
Likely delirium.
-
#Acute rectal bleeding in the setting of colorectal carcinoma/heparin infusion
Patient had bloody bowel movements on 08/06/2024 with roughly 1 L of blood loss
Colorectal surgery consult apprec-CTA negative for active GI bleed
Hemoglobin remained stable around 8, no further bleed, GI signed off
Platelet counts continued to drop-HIT panel negative --> now platelet counts are starting to improve, 160 today
Follow hemoglobin, transfuse if needed to keep Hb >7 g/dL
Not yet on therapy for his colon cancer.
-
Nocturnal BiPAP-history of sleep apnea.
-
#CHRISS now on CRRT
Patient has had worsening renal creatinine function --->placed on CRRT on August 01, 2024-tunneled catheter placed.
Nephro consult appreciated-on intermittent hemodialysis, Alvarez catheter out
HD per nephrology
#Transaminitis secondary to hypoxic liver
Patient had a shock liver response to hypoperfusion secondary to septic shock/cardiogenic shock
AST was greater than 7500 and ALT was greater than 4000
LFTs improved - continue to trend
-
Dr. uSn updated at the bedside-Limited DNR multiple times throughout the hospital stay.
Patient has metastatic colon cancer per
DVT prophylaxis-Sequential compression devices-not a candidate for pharmacological prophylaxis due to GI bleed.
Dr. Sun updated at the bedside 08/16/2024 and 08/17/2024
Critical care statement: A total of 35 minutes of critical care time was provided for this patient today. This includes management of unstable vital signs, evaluation of the patient at bedside, reviewing the patient's pertinent medical records
including ventilator settings, arterial blood gases, radiographs, microbiology, laboratory evaluations and discussion with primary team, critical care nursing, and respiratory therapy.
Subjective Dataa
Subjective Data
Date of Service:
Date of Service: August 18, 2024
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
Subjective:
Patient overall feels better
Continues to fear debilitated
Intermittent coughing
No bloody BMs
Denies abdominal pain
Review of Systems
Cardiopulmonary: Dyspnea (None at rest), Dyspnea on Exertion and Cough
GI: Abdominal Pain (n) and Nausea (n)
Objective Data
Data Reviewed
Vital Signs / I&O / Oxygen:
Vital Signs
Temp Pulse Resp BP Pulse Ox
97.8 F 120 18 121/42 98
08/18/24 07:00 08/18/24 10:30 08/18/24 10:30 08/18/24 10:30 08/18/24 10:30
Intake and Output
08/17/24 08/18/24 08/19/24
06:59 06:59 06:59
Intake Total 1868.7 / 1924.8 1242.6 / 1246.4 22.6 / 22.6
Output Total 300 / 300
Balance 1568.7 / 1624.8 1242.6 / 1246.4 22.6 / 22.6
SaO2 [CPAP] 98
SaO2 [A/C] 98
SaO2 98
Nasal Cannula flow liters per 4
minute
Physical Exam
General: Comfortable and Other (Sedated, mechanical ventilation.)
HEENT: Normocephalic, Anicteric and Other ( ET tube in place without secretion)
Cardiovascular: S1-S2, Irregular Rhythm, Murmur (n), Rub (n) and Peripheral Edema (+1 lower extremity edema bilaterally, right anterior chest HD catheter, right upper extremity PICC, left upper extremity midline)
Respiratory: Clear, Wheeze (n), Crackles (n), Rhonchi (n) and Other (Decreased at base)
GI: Soft, Non Distended and Normal Bowel Sounds
Neurology: Awake, Alert, No Motor Deficits (Moving all extremities) and Other (Following commands, hands and legs, more alert today, BiPAP in place)
Skin: Cyanosis (n), Jaundice (y), Rash (n) and Bruising (n)
Labs/Micro/Reports
Lab Data
08/18/24 04:33
08/18/24 04:33
Microbiology
08/17/24 10:00 Sputum Respiratory Culture - Preliminary
Usual Respiratory Caity
08/17/24 10:00 Sputum Gram Stain - Preliminary
08/15/24 04:30 Blood/Venous Blood Culture - Preliminary
No Growth in 72 hours- Final report to follow
08/15/24 04:30 Blood/Venous Blood Culture - Preliminary
No Growth in 72 hours- Final report to follow
08/16/24 11:25 Urine Urine Culture - Final
NO GROWTH
08/16/24 16:18 Feces/Stool C. difficile GDH Antigen & Toxins - Final
C. difficile antigen positive, toxin negative.
Clostridium difficile present, but toxin not detected.
Patient may be a carrier, colonized with nontoxinogenic
strain or the level of toxin in sample is below detection
limits. This information should be used in conjunction with
the patient's clinical history.
08/13/24 05:31 Feces/Stool Salmonella/Shigella Culture - Final
No Salmonella, Shigella, Aeromonas or Plesiomonas species
isolated.
08/13/24 05:31 Feces/Stool Campylobacter Culture - Final
No Campylobacter species isolated.
08/13/24 05:31 Feces/Stool Shiga Toxin Test - Final
No E. coli Shiga Toxin 1 or 2 detected.
08/13/24 05:31 Feces/Stool Stool Leukocytes - Final
[2024-08-18] MEDS: HEPARIN 500 UNITS INTRACATH (11:12)
[2024-08-18] MEDS: CALCIUM GLUCONATE 280 MG IV (11:29)
--- NOTE | 2024-08-18 11:42 | W.PN.ID1 ---
Date of Service
Date of Service: August 18, 2024
Today's Communication
Continue cefepime, metronidazole
Assessment / Plan
Relapsed shock without a clear source
Colonization with C difficile
Possible UTI
S aureus (MSSA) Pneumonia - resolved
Strep salivarius bacteremia x 2 sets drawn at the same time - most likely contaminant
CHRISS on HD
Class III Obesity
Colorectal Adenocarcinoma - not yet on treatment
Psoriatic Arthritis - currently off of Enbrel since ~05/03
Ileus
- blood cultures x2 in progress
- covid and influenza negative 08/15
- UA mild pyuria
- no C diff toxin production at this time
-leukocytosis resolved
- c/w IV cefepime and metronidazole
- follow clinically
Chief Complaint
-: Pneumonia (S aureus), Bacteremia (streptococcus) and Other (shock)
Subjective / Review of Systems
Coffee ground noted in NGT
Vital Signs / Physical Exam
Vital Signs
Vital Signs
Temp Pulse Resp BP Pulse Ox
97.8 F 120 18 121/42 98
08/18/24 07:00 08/18/24 10:30 08/18/24 10:30 08/18/24 10:30 08/18/24 10:30
Physical Exam
Constitutional: Acutely Ill and Chronically Ill
Cardiovascular: S1/S2 and Other (tachycardic)
Pulmonary: Clear (anteriorly)
Gastrointestinal: Soft, Non Tender, Non Distended and Normal Bowel Sounds
Genito-Urinary: Negative CVA Tenderness
Extremities: Negative Edema
Neurological: Other (lethargic)
Objective Data
Lab Data
Lab Results
08/18/24 04:33
PT 19.5 Sec (11.4-14.6) H 08/07/24 11:27
INR 1.62 08/07/24 11:27
APTT 54.9 Sec (23.4-35.0) H 08/07/24 11:27
Estimated Creat Clear 18 ml/min 08/18/24 04:33
Lactic Acid 1.7 mmol/L (0.7-2.0) 08/06/24 03:26
Total Bilirubin 4.1 mg/dl (0.2-1.3) H 08/14/24 05:48
AST 229 U/L (17-59) H 08/14/24 05:48
ALT 103 U/L (0-50) H 08/14/24 05:48
Alkaline Phosphatase 340 U/L (38-126) H 08/14/24 05:48
Most recent labs reviewed.
Micro Results:
08/17/24 10:00 Respiratory Culture - Preliminary
Sputum Usual Respiratory Catiy
Gram Stain - Preliminary
08/15/24 04:30 Blood Culture - Preliminary
Blood/Venous No Growth in 72 hours- Final report to follow
08/15/24 04:30 Blood Culture - Preliminary
Blood/Venous No Growth in 72 hours- Final report to follow
08/16/24 11:25 Urine Culture - Final
Urine NO GROWTH
08/16/24 16:18 C. difficile GDH Antigen & Toxins - Final
Feces/Stool C. difficile antigen positive, toxin negative.
Clostridium difficile present, but toxin not detected.
Patient may be a carrier, colonized with nontoxinogenic
strain or the level of toxin in sample is below detection
limits. This information should be used in conjunction with
the patient's clinical history.
08/13/24 05:31 Salmonella/Shigella Culture - Final
Feces/Stool No Salmonella, Shigella, Aeromonas or Plesiomonas species
isolated.
Campylobacter Culture - Final
No Campylobacter species isolated.
Shiga Toxin Test - Final
No E. coli Shiga Toxin 1 or 2 detected.
Stool Leukocytes - Final
08/15/24 04:21 Influenza Types A & B (KHANG) - Final
Nasal Swab Negative for Influenza A & B, NAAT
Negative results must be combined with clinical observations
and patient history.
Nucleic Acid Amplification test (NAAT)performed on the
[employer] platform.
08/13/24 05:31 C. difficile GDH Antigen & Toxins - Final
Feces/Stool C. difficile antigen positive, toxin negative.
Clostridium difficile present, but toxin not detected.
Patient may be a carrier, colonized with nontoxinogenic
strain or the level of toxin in sample is below detection
limits. This information should be used in conjunction with
the patient's clinical history.
- Final
Negative for Norovirus GI and GII.
08/07/24 11:39 Blood Culture - Final
Blood/Venous No Growth - Final Report
08/07/24 11:27 Blood Culture - Final
Blood/Venous No Growth - Final Report
08/07/24 10:52 Respiratory Culture - Final
Sputum NO GROWTH
Gram Stain - Final
08/03/24 03:28 Blood Culture - Final
Blood/Venous No Growth - Final Report
08/03/24 03:41 Blood Culture - Final
Blood/Venous No Growth - Final Report
08/01/24 18:19 Blood Culture - Final
Blood/Venous No Growth - Final Report
08/01/24 15:36 Blood Culture - Final
Blood/Venous No Growth - Final Report
07/31/24 12:18 Respiratory Culture - Final
Endotracheal S aureus-Methicillin Sensitive
Gram Stain - Final
07/31/24 07:54 Blood Culture - Final
Blood/Venous Streptococcus salivarius
Gram Stain - Final
07/31/24 07:54 Blood Culture - Final
Blood/Venous Streptococcus salivarius
Gram Stain - Final
07/31/24 11:49 Legionella Urinary Antigen - Final
Urine Negative for Legionella pneumophila Serogroup 1 antigen.
A negative result does not rule out the possiblity of
Legionella infection due to other serogroups or species of
Legionella. Clinical correlation is recommended.
Streptococcus pneumoniae Antigen (M - Final
Negative for Streptococcus pneumoniae antigen.
A negative result does not exclude infection with
Streptococcus pneumoniae. Clinical correlation is
recommended.
07/31/24 12:18 Nasal Screen MRSA (PCR) - Final
Nose MRSA not detected - performed by PCR methodology.
07/31/24 08:10 Influenza Types A & B (KHANG) - Final
Nasal Swab Negative for Influenza A & B, NAAT
Negative results must be combined with clinical observations
and patient history.
Nucleic Acid Amplification test (NAAT)performed on the
[employer] platform.
08/04/24 CXR: Moderate pulmonary edema, without significant change.
[2024-08-18] MEDS: SANTYL OINTMENT 1 APPLIC TOPICAL (11:57)
[2024-08-18] MEDS: PROTONIX IV 40 MG IV ×2 (11:58→19:49)
[2024-08-18] MEDS: HYDROPHOR 1 APPLIC TOPICAL (11:58)
[2024-08-18] MEDS: NSS (PRESERVATIVE FREE) 10 ML IV ×2 (11:58→19:49)
[2024-08-18 12:07] LABS: Glucose - Point of Care 90 mg/dl (70-99)
[2024-08-18] MEDS: LOPRESSOR 5 MG IV (12:19)
--- NOTE | 2024-08-18 12:20 | PTCARENOTE ---
HD completed. Pt repositioned, sacral wound care completed as ordered. Pt providing some assist w/ turning side to side. Pt sitting in chair position in bed and eating lunch. Pt's HR 130's (AFib)- ordered prn Lopressor given. Pt denies any SOB or
pain. and daughter in to visit- updated on plan of care and questions answered.
[2024-08-18] MEDS: MUCINEX 1200 MG PO ×2 (12:21→19:48)
--- NOTE | 2024-08-18 12:29 | W.PN.CARDCBS ---
Today's Communication / Plan
-
Remains in A-fib with elevated heart rates
Metoprolol on hold while requiring pressors, would add back as hemodynamics allow
Impression / Plan
-
Primary Automation Software Engineer: Dr. Hiren Vicente
Impression:
MSOF (resp failure, CHF, liver failure, renal failure)
Recent diagnosis paroxysmal atrial fibrillation with recurrent AFib with RVR
splenic infarct
GI bleeding
Hypotension previously requiring pressors
CHRISS (likely as a consequence of hypotension, possibly from septic shock versus cardiogenic shock or combination of both)
Acute hypoxic respiratory failure requiring intubation 07/31/24
Liver failure (likely as a consequence of hypotension, possibly from septic shock versus cardiogenic shock or combination of both)
Fever
Sepsis, s aureus PNA, possible S aureus bacteremia
Acute diastolic CHF
Colorectal cancer, suspected metastatic, diagnosed 06/22/2024, not yet started on therapy
Pulmonary nodule with concern for metastasis, scheduled for lung biopsy 08/03
Hypertension
Hyperlipidemia
Obstructive sleep apnea
Obesity
Edema
ECHO 07/31/24: Normal LV function. LVEF is 55-60%. No wall motion abnormality. Top normal right ventricular size with normal RV function. Mild AI and mild TR. Estimated pulmonary artery pressure of 38 mmHg
Plan:
-Presented MSOF (resp failure, CHF, liver failure, renal failure), shock, sepsis, lactic acidosis
-remains in persistent afib
-holding BB given need for pressors, add back as hemodynamics allow
-evidence of splenic infarct by imaging 08/06/24
-he had bloody BM on IV heparin earlier in hospital stay. not felt to be present OAC candidate due to being high risk for recurrent GI bleeding due to rectal masses per GI. hgb stable. He is [id number] score of 1 (hypertension). once recovered,
could consider candidacy for watchman.
-echo with preserved EF this admission.
-started on HD this admission, continue volume mgmt as able through HD
HPI:
64-year-old man with recently diagnosed colorectal cancer with possible lung metastasis and recent diagnosis of atrial fibrillation who presented with lightheadedness and dizziness after starting oral metoprolol as an outpatient and presented to
[place] emergency department for further management. After being found to have CHRISS and anemia he was admitted for further management. Unfortunately developed increased work of breathing this morning, became tachycardic and was found to be
febrile. Did not clinically improve with BiPAP and he was subsequently intubated and transferred to the medical ICU for further management. Currently being treated with broad-spectrum antibiotics and requiring pressor support.
Seen in the outpatient cardiology office 07/26/24 and was in AF with a rapid ventricular rate of 130 bpm. At that visit he had yet to initiate Toprol-XL which was ordered by his primary care physician. At that office visit he agreed to initiate
Toprol-XL 25 mg daily for rate control with plan to defer recommendations regarding rhythm control until he was adequately anticoagulated (atrial fibrillation of unknown duration) and to allow for intermittent interruption of anticoagulation for
planned upcoming procedures regarding his recently diagnosed colorectal cancer with likely pulmonary metastases (bronchoscopy, port placement, colorectal surgery). Eliquis 5 mg twice daily was also initiated on 07/26/24..
Cardiology is consulted for possible heart failure as a cause of his respiratory decompensation. proBNP was mildly elevated (3210), it is possible there is some component of heart failure with preserved ejection fraction.
On presentation to the emergency department 07/30/24, he was in atrial fibrillation with reasonably controlled ventricular rate of 105 bpm. EKG of July 31, 2024 finds sinus rhythm at 77 bpm.
Progress Note - Automation Software Engineer
Subjective
Date of Service: August 18, 2024
No acute overnight events. Patient is extubated and resting comfortably today in the medical ICU. No cardiac complaints.
Objective
Labs:
08/18/24 04:33
Labs
Hgb 7.4 g/dL (13.0-18.0) L 08/18/24 04:33
Hct 24.0 % (39.0-52.0) L 08/18/24 04:33
Plt Count 148 10^3/uL (130-400) 08/18/24 04:33
PT 19.5 Sec (11.4-14.6) H 08/07/24 11:27
INR 1.62 08/07/24 11:27
APTT 54.9 Sec (23.4-35.0) H 08/07/24 11:27
Sodium 136 mmol/L (135-145) 08/18/24 04:33
Potassium 3.4 mmol/L (3.5-5.1) L 08/18/24 04:33
BUN 67 mg/dl (9-20) H 08/18/24 04:33
Creatinine 5.7 mg/dL (0.7-1.3) H* 08/18/24 04:33
Glucose 89 mg/dl (70-99) 08/18/24 04:33
Vital Signs and I&O:
Vital Signs
Temp Pulse Resp BP Pulse Ox
97.8 F 133 18 121/42 98
08/18/24 07:00 08/18/24 12:19 08/18/24 10:30 08/18/24 10:30 08/18/24 10:30
Vital Signs
Temp Pulse Resp BP Pulse Ox
97.8 F 133 18 121/42 98
08/18/24 07:00 08/18/24 12:19 08/18/24 10:30 08/18/24 10:30 08/18/24 10:30
Intake & Output
08/16/24 08/17/24 08/18/24 08/19/24
06:59 06:59 06:59 06:59
Intake Total 1865.3 / 1925.8 1868.7 / 1924.8 1242.6 / 1246.4 28.6 / 28.6
Output Total 190 / 190 300 / 300 375 / 375
Balance 1675.3 / 1735.8 1568.7 / 1624.8 1242.6 / 1246.4 -346.4 / -346.4
Physical Exam
Physical Exam
Gen: NAD, AAOx3
HEENT: NC/AT, sclera anicteric
Neck: No JVD
CV: Tachy, irregularly irregular
Lungs: CTAB
Abd: S/ND
Ext: No LE edema
Skin: Warm, dry
Neuro: Non-focal
[2024-08-18 13:59] LABS: Hematocrit 25.3 % (39.0-52.0); Hemoglobin 7.8 g/dL (13.0-18.0)
[2024-08-18] MEDS: MAXIPIME 1000 MG IV (14:42)
[2024-08-18] MEDS: STERILE WATER FOR INJECTION 10 ML IV (14:42)
--- NOTE | 2024-08-18 16:40 | PTCARENOTE ---
Pt continues to rest quietly in bed, watching TV. Occasional moist cough productive of small amount edouard sputum. Pt using Yankauer independently. Cough seems stronger as the day has progressed. Pt assisting w/ turning/repositioning side to side in
bed. Tolerating increased activity w/o complication. Ate 75% of breakfast/lunch tray w/ supervision- no coughing or concern for aspiration. Dinner tray ordered by pt's . No additional changes from previous assessment findings or new complaints
received.
[2024-08-18 18:00] LABS: Glucose - Point of Care 107 mg/dl (70-99)
--- NOTE | 2024-08-18 20:52 | PTCARENOTE ---
Pt received start of shift, HR afib w/ occasional PVCs on telemetry. Pt speech slow, but greatly improved from this RN's previous shift. Oriented conversation, answers appropriately to questions. Productive cough, pt using yankauer to suction self.
RA, SpO2 99%. Levo infusing at 4mcgs.
[2024-08-18 23:55] LABS: Glucose - Point of Care 106 mg/dl (70-99)
[2024-08-19] VITALS (44 sets, daily range): BP systolic 96–134; BP diastolic 30–79; PULSE 2–70; BMI 37.6
--- NOTE | 2024-08-19 01:00 | PTCARENOTE ---
Pt remains on levophed gtt. BMx1 loose brown stool - sacral dressing saturated. Pt states he cannot control when his BM is released. Redressed sacral wound, new linens + gown. Bladder scan 167. Pt sleeping intermittently, watching tv.
[2024-08-19 04:33] LABS: Ionized Calcium 1.02 mMOL/L (1.15-1.33)
[2024-08-19 05:07] LABS: Blood Urea Nitrogen 46 mg/dl (9-20); Calcium 7.3 mg/dl (8.4-10.2); Carbon Dioxide 24 mmol/L (22-30); Chloride 101 mmol/L (98-107); Estimated Creatinine Clearance 26 ml/min; Glucose 91 mg/dl (70-99); Potassium 3.5 mmol/L (3.5-5.1); Sodium 135 mmol/L (135-145); eGFR 16.62
[2024-08-19 05:10] LABS: Hematocrit 24.5 % (39.0-52.0); Hemoglobin 7.5 g/dL (13.0-18.0); Mean Corp Hgb Conc. 30.6 g/dL (33.0-37.0); Mean Corpuscular Hgb 28.6 pg (27.0-31.0); Mean Corpuscular Volume 93.5 fL (80.0-94.0); Mean Platelet Volume 10.3 fL (7.4-10.4); Platelet Count 117 10^3/uL (130-400); Red Blood Cell Count 2.62 10^6/uL (4.70-6.10); Red Cell Dist. Width 25.9 % (11.5-14.5); White Blood Cell Count 7.4 10^3/uL (4.8-10.8)
[2024-08-19] MEDS: FLAGYL 500 MG 100 IV ×3 (05:43→21:47)
[2024-08-19 05:45] LABS: Glucose - Point of Care 95 mg/dl (70-99)
[2024-08-19] MEDS: KCL 160 MEQ IV (05:59)
--- NOTE | 2024-08-19 06:00 | PTCARENOTE ---
Reassessed. Levo off @0300. SBP holding>90. Bladder scan 187, still no void. When asked if he could attempt to urinate, pt states he has no urge to void but could have a BM. Pt placed on bedpan - liquid brown stool. Dressing soiled - redressed. AM
labs, K 3.5 - 20meq IV ordered.
[2024-08-19] MEDS: DUONEB 3 ML INH (07:16)
--- NOTE | 2024-08-19 07:22 | W.PN.HOSP.TC ---
Today's Communication/Plan
-
Weaned off pressors early this morning
Continue antibiotics
Low dose Lopressor
See below
Assessment / Plan
Assessment / Plan
Physical Exam
General: Not in acute distress
HEENT: Normocephalic and Atraumatic
Respiratory: Equal air entry bilaterally
Cardiac: irregular Rhythm and S1/S2
GI: Soft and Nontender. Positive bowel sounds.
Musculoskeletal: No Edema
Neuro: Alert. Awake.
Psych: Calm
Assessment/Plan
Mr. Иван Redd is a 64-year-old man with a past medical history of recently diagnosed colorectal cancer, persistent atrial fibrillation, essential hypertension who presents to the ER with dizziness. Patient reports feeling unwell for the last
2 days. He was recently started on metoprolol and Eliquis for atrial fibrillation. Overnight admission patient developed acute respiratory failure in setting of high fever with finding MSSA in blood and sputum; development of renal failure
requiring CRRT.
#Acute Respiratory Failure requiring intubation - extubated 08/17/24
#MSSA in Sputum Culture
#Streptococcus salivarius bacteremia via BCx from 07/31/2024
#New splenic infarct
#Septic Shock
#Acute Renal Failure
#Hyperkalemia
#Lactic Acidosis
#Metabolic acidosis with increased anion gap due to severe CHRISS
#Non-Ischemic Myocardial Injury
-s/p intubation morning of 07/31 during rapid response; extubated 08/08 to BIPAP. Was on room air.
-initial concern for flash pulmonary edema given acute SOB, CXR read and patient had been receiving IVF. IV lasix given without significant output and worsening renal function; renal consulted and patient initiated on CRRT on 08/01 given worsening
renal function, essentially no urine output and hyperkalemia. CRRT previously stopped and now on HD via tunneled cath. HD schedule per Nephrology.
-08/01: culture results showing MSSA in Sputum and Blood
-TTE results - no vegetation
-[employer] Firer Consult appreciated
-Cardiology consult appreciated
-Nephrology consult appreciated
08/15/2024 morning, patient started having increased work of breathing and could not tolerate BiPAP. Then intubated. [employer] Firer following.
08/16/2024, patient was unable to be ventilated properly, status post deep suction. Appears severe mucous plugging. Oxygenation later improved after suctioning.
CONTINUES ON ROOM AIR (extubated on 08/17/24)
Was on Levophed -- weaned off Levophed on 08/19/24 at 3 AM
Unclear if there was any aspiration event, given worsening leukocytosis and intubation. On cefepime and Flagyl. ID following
Blood culture NGTD
Venous Doppler negative for DVT
cdiff antigen positive, toxin negative. P.o. vancomycin while on antibiotics
Continue Zosyn
#Acute rectal bleeding in the setting of colorectal carcinoma/heparin infusion - now resolved
#Known history of colorectal Adenocarcinoma with possible lung mets
#Metastatic colorectal cancer with suspected lung metastasis (diagnosed via colonoscopy on 06/22/2024 with partially obstructing tumor seen in the rectum 4
cm from the anal verge, invasive low-grade colorectal adenocarcinoma)
#PET avid 2.2 cm right upper lobe nodule originally planned for robotic bronchoscopy on 08/03/2024 (will be deferred for now)
- s/p CTA without active bleeding source. No role for IR intervention. Source felt be related to known colon masses, although diverticular disease or AVMs possible.
- was previously Scheduled for lung biopsy as outpatient
- patient had not yet started chemotherapy
- GI following
- 1 unit of PRBC today given the drop in Hgb with associated tachycardia
#Persistent Atrial Fibrillation, with Rapid Ventricular Response
- off anticoagulation with active bleed episode; family aware of stroke risk
- Beta nirav resumed in the form of low-dose Lopressor
- not felt to be present OAC candidate due to being high risk for recurrent GI bleeding due to rectal masses per GI.
- Cardiology follow-up after discharge for possible Watchman Device placement
- Stop DuoNebs due to tachycardia. Xopenex as needed started for secretion clearance.
#Acute HFpEF Exacerbation
#Toxic Metabolic Encephalopathy
-critical illness, recent sedation
-monitor mentation -- now more alert
-CTH negative 08/08
-s/p VSE 2/; now on dysphagia diet. ongoing speech evals.
#Transaminitis secondary to hypoxic liver
#Dysphagia
-Continue speech therapy evaluations
#Constipation
- bowel regimen prn
#Essential Hypertension
- hold SPORT PSYCHOLOGIST Olmesartan-HCTZ
- Continue low dose Lopressor as above
#Hyperlipidemia
- hold rosuvastatin
#Acute Thrombocytopenia
- HIT panel negative
Monitor
#Sacral/buttocks DTI
- fecal management system placement attempted, unable to stay in per RN
- wound care service following; suspect stage III or stage IV pressure injury. Consider surgical evaluation if symptoms do not improve
ID is also following
#History of HAN on auto CPAP
-Nocturnal BiPAP encouraged
#History of psoriasis previously on Enbrel
#History of hepatitis A
#History of COVID-19 (03/2024)
#Restrictive lung disease (suspected based on spirometry from 05/15/2021, however patient was coughing during testing and post-bronchodilator FVC was WNL at 84% predicted)
DVT ppx: SCDs
Code: Limited DNR
Anticipated Discharge: > 48 hours
Subjective/Interval History
-
Date of Service: August 19, 2024
Patient was seen and examined. He denied any symptoms or complaints.
Objective Data
-
Labs:
Laboratory Results
08/19/24
04:15
WBC 7.4
Hgb 7.5 L
Hct 24.5 L
Plt Count 117 L D
Sodium 135
Potassium 3.5
Chloride 101
Carbon Dioxide 24
BUN 46 H
Creatinine 3.9 H
Glucose 91
Calcium 7.3 L
Vital Signs:
Vital Signs
Temp Pulse Resp BP Pulse Ox
98.7 F 116 18 114/47 98
08/19/24 07:21 08/19/24 07:18 08/19/24 07:18 08/19/24 06:00 08/19/24 07:18
I&O
08/18/24 08/19/24 08/20/24
06:59 06:59 06:59
Intake Total 1242.6 / 1246.4 1298.0 / 1298.0
Output Total 375 / 375
Balance 1242.6 / 1246.4 923.0 / 923.0
[2024-08-19] MEDS: MUCINEX 1200 MG PO ×2 (08:13→19:58)
[2024-08-19] MEDS: SANTYL OINTMENT 1 APPLIC TOPICAL (08:14)
[2024-08-19] MEDS: NSS (PRESERVATIVE FREE) 10 ML IV ×2 (08:14→20:00)
[2024-08-19] MEDS: PROTONIX IV 40 MG IV ×2 (08:14→20:00)
--- NOTE | 2024-08-19 08:15 | PTCARENOTE ---
Assumed care of pt at 0715 following shift report. Pt awake and resting quietly in bed. Denies c/o pain or SOB. Reports 'did not sleep last night'. No additional complaints. Physical assessment completed as documented. Hygiene and comfort care
completed. Pt assisting w/ turning side to side in bed. Voice and cough notably stronger this morning when compared to yesterday. No running IVs. Safe environment maintained.
--- NOTE | 2024-08-19 08:47 | W.PN.NEPH.PH ---
Today's Communication / Plan
-
for blood products
HD on Tuesday
Assessment/Plan
-
64-year-old man with recently diagnosed colorectal cancer with possible lung metastasis and recent diagnosis of atrial fibrillation who presented with lightheadedness and dizziness after starting oral metoprolol as an outpatient and presented to
[place] emergency department. He presented in acute kidney injury admitted to the floors upgraded to the ICU for increased work of breathing ultimately intubated in the ICU with hyperkalemia.
Patient is critically ill on pressor support essentially anuric.
Positive blood cultures pending organism. Staph aureus sputum culture.
Renal consult for acute kidney injury and hyperkalemia
Impression.
Acute kidney injury and hyperkalemia secondary to septic shock.
Colorectal cancer newly diagnosed June 2024 with possible lung metastasis
Atrial fibrillation on oral anticoagulation
Bacteremia/sepsis
Plan.
next HD planned for Tuesday
remains in AFIB with tachycardia
discussed with ICU attending, will get unit of blood today
abx per ID
monitor h/h , concern of GIB , so no anticoagulation in setting of AFIB
-
-
Date of Service: August 19, 2024
CC / HPI / ROS
-
Chief Complaint:
Septic shock
History of Present Illness:
tolerated HD now TTS
Hemoglobin low at 7.5
Extubated on 08/17/2024
now off pressors
Review of Systems:.
awake and alert
no sob or chest pain
some uop, pvr bladders scan , straight cath for 375cc
Labs
-
Labs:
WBC 7.4 10^3/uL (4.8-10.8) 08/19/24 04:15
RBC 2.62 10^6/uL (4.70-6.10) L 08/19/24 04:15
Hgb 7.5 g/dL (13.0-18.0) L 08/19/24 04:15
Hct 24.5 % (39.0-52.0) L 08/19/24 04:15
Plt Count 117 10^3/uL (130-400) L D 08/19/24 04:15
Sodium 135 mmol/L (135-145) 08/19/24 04:15
Potassium 3.5 mmol/L (3.5-5.1) 08/19/24 04:15
Chloride 101 mmol/L (98-107) 08/19/24 04:15
Carbon Dioxide 24 mmol/L (22-30) 08/19/24 04:15
BUN 46 mg/dl (9-20) H 08/19/24 04:15
Creatinine 3.9 mg/dL (0.7-1.3) H 08/19/24 04:15
eGFR 16.62 08/19/24 04:15
Glucose 91 mg/dl (70-99) 08/19/24 04:15
Calcium 7.3 mg/dl (8.4-10.2) L 08/19/24 04:15
Phosphorus 4.5 mg/dl (2.5-4.5) 08/08/24 08:31
Cig-Y-Sdajrhujhko Pept 2850 pg/ml 08/06/24 03:26
Albumin 2.8 g/dl (3.5-5.0) L 08/14/24 05:48
Physical Exam
-
Vital Signs:
Vital Signs
Temp Pulse Resp BP Pulse Ox
98.7 F 116 18 114/47 98
08/19/24 07:21 08/19/24 07:18 08/19/24 07:18 08/19/24 06:00 08/19/24 07:18
Cardiovascular:: Irregular rate and rhythm
Respiratory:: Bilateral: Coarse
Lung Excursion:: Normal
Abdomen:: Nontender and Soft
Extremity Edema:: +1: Bilateral:
Alvarez Catheter: No
--- NOTE | 2024-08-19 10:47 | W.PN.INTV ---
Today's Communication / Plan
Recommendations
Possible transfer to telemetry
Continue nocturnal BiPAP
Transfusion today
Physical therapy
Hemodialysis as able
Discontinue DuoNebs-start Xopenex as needed
Incentive spirometry encouraged
If transfer out of the ICU critical care team will sign off. Please call pulmonary if any respiratory issues arise.
Assessment
-
Impression
Patient is a 64-year-old male, recently diagnosed with colorectal carcinoma and the disease is presumably advanced, had a lung nodule that was supposed to be biopsied but patient ended up in the ER for dizziness secondary to recent atrial
fibrillation. As his workup was being done in the ER for CHRISS and anemia along with dizziness, patient decompensated, had acute respiratory failure, nonresponsive to nonrebreather mask and noninvasive ventilation, ended up in ICU, rapid response was
called, had to be intubated.
Assessment:
# Acute respiratory failure requiring intubation mechanical ventilation 08/15/2024
Extubated 08/17/2024
-
# Atrial fibrillation with rapid ventricular response - now rate controlled
# Change in mental status - now more alert
#Acute rectal bleeding in the setting of colorectal carcinoma/heparin infusion - now resolved
#Acute respiratory failure - improved and now on room air
#CHRISS now on CRRT - remains on iHD and off CRRT
#Streptococcal bacteremia via BCx from 07/31/2024
#Acute HFpEF exacerbation
#Metabolic acidosis with increased anion gap due to severe CHRISS
#Transaminitis secondary to hypoxic liver
#Hx of HAN
Other chronic medical conditions:
#Metastatic colorectal cancer with suspected lung metastasis (diagnosed via colonoscopy on 06/22/2024 with partially obstructing tumor seen in the rectum 4 cm from the anal verge, invasive low-grade colorectal adenocarcinoma)
#PET avid 2.2 cm right upper lobe nodule originally planned for robotic bronchoscopy on 08/03/2024 (will be deferred for now)
#HAN on auto CPAP
#History of psoriasis previously on Enbrel
#History of hepatitis A
#History of COVID-19 (03/2024)
#Restrictive lung disease (suspected based on spirometry from 05/15/2021, however patient was coughing during testing and post-bronchodilator FVC was WNL at 84% predicted)
Plan:
-
Transfer back to the critical care unit 08/15/2024 after developing overnight increased work of breathing. Failed BiPAP therapy intubated emergently.
-
Now extubated since 08/17/2024
From the pulmonary perspective doing well
Lung exam is clear
Not requiring supplemental oxygen
Occasionally coughing without significant expectoration
Etiology for respiratory failure and increased work of breathing unclear to me. Possibly due to mucous plugging.
-
Lower extremity Dopplers ordered by me 08/15/2024: No evidence for deep venous thrombosis.
Thromboembolic disease less likely, not significantly tachycardic.
Patient was on mechanical ventilation since 07/31/2024 --> extubated on 08/08/2024
Reintubated 08/15/2024->> extubated 08/17/2024
Chest x-ray: ET tube in place, no pneumothorax. Left lower lobe abnormality
Chest x-ray08/16/2024: No acute infiltrates.
Not bronchospastic on exam
Encourage incentive spirometry
Increase activity, get out of bed as tolerated
Discontinue DuoNebs due to tachycardia. Xopenex as needed started for secretion clearance.
Encourage incentive spirometry
Acapella device as able while in the hospital
-
Patient did have severe mucous plugging-inability to ventilate well on mechanical ventilation. 08/16/2024
Continue mucolytics.
-
Shock resolved-off Levophed since 3 AM. 08/19/2024
Remains afebrile
Nontoxic
If continues to be off pressors this afternoon we will transfer out of the ICU.
-
Infectious disease correspondence reviewed-Zosyn will continue
Oral vancomycin added
Repeat cultures-pending. Negative so far.
influenza negative
Recent C. difficile - 08/13/2024
Chest x-ray not impressive for pulmonary source.
-
#Streptococcal salivarious bacteremia
Echo repeated on 08/07/2024-There is no evidence of vegetation or embolic source seen.
New splenic infarct --> Repeat blood cultures have showing NGTD since 07/12/2024
History of MSSA pneumonia.
-
NG tube with dark output-possible gastritis. While he was intubated.
NG tube out
Denies any vomiting. Benign abdominal exam
No evidence for acute bleeding
PPI twice a day
Hemoglobin decreased to 7.5 has been stable at that range. Given ongoing tachycardia will transfuse 1 unit of packed red blood cells 08/19/2024.
-
# Atrial fibrillation with rapid ventricular response-rate is controlled
Troponin trending lower 08/15/2024
- Goal HR<110
-Continue with metoprolol 75 mg PO q6hr
Not on anticoagulation due to recent GI bleed and low platelet counts
SYL panel negative from 08/08/2024
Cardiology following-recommendations appreciated
# Change in mental status-apparently he was back to baseline prior to this event. Back to baseline.
On 08/08, patient's mental status was altered in terms of responsiveness, CT scan of head was repeated showing no acute intracranial abnormality.
Likely delirium.
-
#Acute rectal bleeding in the setting of colorectal carcinoma/heparin infusion
Patient had bloody bowel movements on 08/06/2024 with roughly 1 L of blood loss
Colorectal surgery consult apprec-CTA negative for active GI bleed
Hemoglobin remained stable around 8, no further bleed, GI signed off
Platelet counts continued to drop-HIT panel negative --> now platelet counts are starting to improve, 160 today
Follow hemoglobin, transfuse if needed to keep Hb >7 g/dL
Not yet on therapy for his colon cancer.
-
Nocturnal BiPAP-history of sleep apnea. This was encouraged.
-
#CHRISS now on CRRT
Patient has had worsening renal creatinine function --->placed on CRRT on August 01, 2024-tunneled catheter placed.
Nephro consult appreciated-on intermittent hemodialysis, Alvarez catheter out
HD per nephrology
#Transaminitis secondary to hypoxic liver
Trending lower.
-
Dr. Sun updated at the bedside-Limited DNR multiple times throughout the hospital stay.
Patient has metastatic colon cancer per
DVT prophylaxis-Sequential compression devices-not a candidate for pharmacological prophylaxis due to GI bleed.
Dr. Sun updated at the bedside 08/16/2024 and 08/17/2024 and 08/19/2024.
-
If remains hemodynamically stable without vasopressors this afternoon we will transfer to telemetry
Is transferred to telemetry critical care team will sign off. Please call pulmonary if any respiratory issues arise.
Subjective Dataa
Subjective Data
Date of Service:
Date of Service: August 19, 2024
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
Subjective:
Patient denies any complaints
He feels much better
Occasionally coughing
Denies shortness of breath at rest
Review of Systems
GI: Abdominal Pain (n) and Nausea (n)
Neuro: Headache (n)
Objective Data
Data Reviewed
Vital Signs / I&O / Oxygen:
Vital Signs
Temp Pulse Resp BP Pulse Ox
98.7 F 126 17 116/47 100
08/19/24 07:21 08/19/24 10:00 08/19/24 10:00 08/19/24 10:00 08/19/24 10:00
Intake and Output
08/18/24 08/19/24 08/20/24
06:59 06:59 06:59
Intake Total 1242.6 / 1246.4 1298.0 / 1298.0 0 / 0
Output Total 375 / 375
Balance 1242.6 / 1246.4 923.0 / 923.0 0 / 0
SaO2 [CPAP] 98
SaO2 [A/C] 98
SaO2 100
Nasal Cannula flow liters per 4
minute
Physical Exam
General: Comfortable
HEENT: Normocephalic and Anicteric
Cardiovascular: S1-S2, Irregular Rhythm, Murmur (n), Rub (n) and Peripheral Edema (+1 lower extremity edema bilaterally, right anterior chest HD catheter, right upper extremity PICC, left upper extremity midline)
Respiratory: Clear, Wheeze (n), Crackles (n) and Rhonchi (n)
GI: Soft, Non Distended and Normal Bowel Sounds
Neurology: Awake, Alert, No Motor Deficits (Moving all extremities) and Other (Following commands, hands and legs, more alert today, BiPAP in place)
Skin: Cyanosis (n), Jaundice (y), Rash (n) and Bruising (n)
Labs/Micro/Reports
Lab Data
08/19/24 04:15
08/19/24 04:15
Microbiology
08/15/24 04:30 Blood/Venous Blood Culture - Preliminary
No Growth in 4 days- Final report to follow
08/15/24 04:30 Blood/Venous Blood Culture - Preliminary
No Growth in 4 days- Final report to follow
08/17/24 10:00 Sputum Respiratory Culture - Preliminary
Usual Respiratory Caity
08/17/24 10:00 Sputum Gram Stain - Preliminary
08/16/24 11:25 Urine Urine Culture - Final
NO GROWTH
08/16/24 16:18 Feces/Stool C. difficile GDH Antigen & Toxins - Final
C. difficile antigen positive, toxin negative.
Clostridium difficile present, but toxin not detected.
Patient may be a carrier, colonized with nontoxinogenic
strain or the level of toxin in sample is below detection
limits. This information should be used in conjunction with
the patient's clinical history.
08/13/24 05:31 Feces/Stool Salmonella/Shigella Culture - Final
No Salmonella, Shigella, Aeromonas or Plesiomonas species
isolated.
08/13/24 05:31 Feces/Stool Campylobacter Culture - Final
No Campylobacter species isolated.
08/13/24 05:31 Feces/Stool Shiga Toxin Test - Final
No E. coli Shiga Toxin 1 or 2 detected.
08/13/24 05:31 Feces/Stool Stool Leukocytes - Final
--- NOTE | 2024-08-19 11:39 | W.PN.CARDCBS ---
Today's Communication / Plan
-
Remains in rapid A-fib, we will try to add back low-dose metoprolol with hold parameters
Impression / Plan
-
Primary Channel Cementer Insole Machine: Dr. Hiren Vicente
Impression:
MSOF (resp failure, CHF, liver failure, renal failure)
Recent diagnosis paroxysmal atrial fibrillation with recurrent AFib with RVR
splenic infarct
GI bleeding
Hypotension previously requiring pressors
CHRISS (likely as a consequence of hypotension, possibly from septic shock versus cardiogenic shock or combination of both)
Acute hypoxic respiratory failure requiring intubation 07/31/24
Liver failure (likely as a consequence of hypotension, possibly from septic shock versus cardiogenic shock or combination of both)
Fever
Sepsis, s aureus PNA, possible S aureus bacteremia
Acute diastolic CHF
Colorectal cancer, suspected metastatic, diagnosed 06/22/2024, not yet started on therapy
Pulmonary nodule with concern for metastasis, scheduled for lung biopsy 08/03
Hypertension
Hyperlipidemia
Obstructive sleep apnea
Obesity
Edema
ECHO 07/31/24: Normal LV function. LVEF is 55-60%. No wall motion abnormality. Top normal right ventricular size with normal RV function. Mild AI and mild TR. Estimated pulmonary artery pressure of 38 mmHg
Plan:
-Presented MSOF (resp failure, CHF, liver failure, renal failure), shock, sepsis, lactic acidosis
-remains in persistent afib
-holding BB given need for pressors, add back as hemodynamics allow
-evidence of splenic infarct by imaging 08/06/24
-he had bloody BM on IV heparin earlier in hospital stay. not felt to be present OAC candidate due to being high risk for recurrent GI bleeding due to rectal masses per GI. hgb stable. He is [id number] score of 1 (hypertension). once recovered,
could consider candidacy for watchman.
-echo with preserved EF this admission.
-started on HD this admission, continue volume mgmt as able through HD
HPI:
64-year-old man with recently diagnosed colorectal cancer with possible lung metastasis and recent diagnosis of atrial fibrillation who presented with lightheadedness and dizziness after starting oral metoprolol as an outpatient and presented to
[facility] emergency department for further management. After being found to have CHRISS and anemia he was admitted for further management. Unfortunately developed increased work of breathing this morning, became tachycardic and was found to be
febrile. Did not clinically improve with BiPAP and he was subsequently intubated and transferred to the medical ICU for further management. Currently being treated with broad-spectrum antibiotics and requiring pressor support.
Seen in the outpatient cardiology office 07/26/24 and was in AF with a rapid ventricular rate of 130 bpm. At that visit he had yet to initiate Toprol-XL which was ordered by his primary care physician. At that office visit he agreed to initiate
Toprol-XL 25 mg daily for rate control with plan to defer recommendations regarding rhythm control until he was adequately anticoagulated (atrial fibrillation of unknown duration) and to allow for intermittent interruption of anticoagulation for
planned upcoming procedures regarding his recently diagnosed colorectal cancer with likely pulmonary metastases (bronchoscopy, port placement, colorectal surgery). Eliquis 5 mg twice daily was also initiated on 07/26/24..
Cardiology is consulted for possible heart failure as a cause of his respiratory decompensation. proBNP was mildly elevated (3210), it is possible there is some component of heart failure with preserved ejection fraction.
On presentation to the emergency department 07/30/24, he was in atrial fibrillation with reasonably controlled ventricular rate of 105 bpm. EKG of July 31, 2024 finds sinus rhythm at 77 bpm.
Progress Note - Channel Cementer Insole Machine
Subjective
Date of Service: August 19, 2024
No acute overnight events. No cardiac complaints today. Resting comfortably in the medical ICU. Off norepinephrine at the time of my evaluation.
Objective
Labs:
08/19/24 04:15
08/19/24 04:15
Labs
Hgb 7.5 g/dL (13.0-18.0) L 08/19/24 04:15
Hct 24.5 % (39.0-52.0) L 08/19/24 04:15
Plt Count 117 10^3/uL (130-400) L D 08/19/24 04:15
PT 19.5 Sec (11.4-14.6) H 08/07/24 11:27
INR 1.62 08/07/24 11:27
APTT 54.9 Sec (23.4-35.0) H 08/07/24 11:27
Sodium 135 mmol/L (135-145) 08/19/24 04:15
Potassium 3.5 mmol/L (3.5-5.1) 08/19/24 04:15
BUN 46 mg/dl (9-20) H 08/19/24 04:15
Creatinine 3.9 mg/dL (0.7-1.3) H 08/19/24 04:15
Glucose 91 mg/dl (70-99) 08/19/24 04:15
Vital Signs and I&O:
Vital Signs
Temp Pulse Resp BP Pulse Ox
98.7 F 126 17 116/47 100
08/19/24 07:21 08/19/24 10:00 08/19/24 10:00 08/19/24 10:00 08/19/24 10:00
Vital Signs
Temp Pulse Resp BP Pulse Ox
98.7 F 126 17 116/47 100
08/19/24 07:21 08/19/24 10:00 08/19/24 10:00 08/19/24 10:00 08/19/24 10:00
Intake & Output
08/17/24 08/18/24 08/19/24 08/20/24
06:59 06:59 06:59 06:59
Intake Total 1868.7 / 1924.8 1242.6 / 1246.4 1298.0 / 1298.0 0 / 0
Output Total 300 / 300 375 / 375
Balance 1568.7 / 1624.8 1242.6 / 1246.4 923.0 / 923.0 0 / 0
Physical Exam
Physical Exam
Gen: NAD, AA
HEENT: NC/AT, sclera anicteric
Neck: No JVD
CV: Tacky, irregularly irregular
Lungs: No increased WOB on RA
Abd: S/ND
Ext: No LE edema
Skin: Warm, dry
Neuro: Non-focal
[2024-08-19 11:42] LABS: Glucose - Point of Care 105 mg/dl (70-99)
[2024-08-19] MEDS: HYDROPHOR 1 APPLIC TOPICAL (12:19)
[2024-08-19] MEDS: LOPRESSOR 12.5 MG PO ×2 (12:19→19:58)
--- NOTE | 2024-08-19 12:25 | PTCARENOTE ---
Ordered unit PRBC infusing w/o complications. Pt sitting up in bed eating lunch w/ much encouragement. visiting at bedside- updated on plan of care, questions answered. Pt denies any pain or SOB. Remains on RA w/ POx 99%. Occasional cough
productive of small amount edouard sputum. No additional changes from previous assessment findings.
--- NOTE | 2024-08-19 13:36 | W.PN.ID1 ---
Date of Service
Date of Service: August 19, 2024
Today's Communication
Continue abx's for now.
Assessment / Plan
s/p Relapsed shock without a clear source
Colonization with C difficile
Possible UTI
S aureus (MSSA) Pneumonia - resolved
Strep salivarius bacteremia x 2 sets drawn at the same time - most likely contaminant
CHRISS on HD
Class III Obesity
Colorectal Adenocarcinoma - not yet on treatment
Psoriatic Arthritis - currently off of Enbrel since ~05/03
Ileus
- blood cultures x2 negative
- covid and influenza negative 08/15
- UA mild pyuria
- no C diff toxin production at this time
-leukocytosis resolved
-Sputum C. albicans (no significance)
- c/w IV cefepime and metronidazole
Chief Complaint
-: Pneumonia (S aureus), Bacteremia (streptococcus) and Other (shock)
Subjective / Review of Systems
Feels a bit better. + cough.
Vital Signs / Physical Exam
Vital Signs
Vital Signs
Temp Pulse Resp BP Pulse Ox
97.4 F 113 20 115/38 99
08/19/24 12:21 08/19/24 12:31 08/19/24 12:31 08/19/24 12:31 08/19/24 12:31
Physical Exam
Constitutional: Comfortable and Chronically Ill
Cardiovascular: Irregular Rate and Other (tachycardic)
Pulmonary: Clear (anteriorly)
Gastrointestinal: Soft, Non Tender, Non Distended and Normal Bowel Sounds
Genito-Urinary: Negative CVA Tenderness
Extremities: Negative Edema
Neurological: Awake, Alert and Other (lethargic)
Objective Data
Lab Data
Lab Results
08/19/24 04:15
08/19/24 04:15
PT 19.5 Sec (11.4-14.6) H 08/07/24 11:27
INR 1.62 08/07/24 11:27
APTT 54.9 Sec (23.4-35.0) H 08/07/24 11:27
Estimated Creat Clear 26 ml/min 08/19/24 04:15
Lactic Acid 1.7 mmol/L (0.7-2.0) 08/06/24 03:26
Total Bilirubin 4.1 mg/dl (0.2-1.3) H 08/14/24 05:48
AST 229 U/L (17-59) H 08/14/24 05:48
ALT 103 U/L (0-50) H 08/14/24 05:48
Alkaline Phosphatase 340 U/L (38-126) H 08/14/24 05:48
Most recent labs reviewed.
Micro Results:
08/17/24 10:00 Respiratory Culture - Final
Sputum Brianne albicans
Gram Stain - Final
08/15/24 04:30 Blood Culture - Preliminary
Blood/Venous No Growth in 4 days- Final report to follow
08/15/24 04:30 Blood Culture - Preliminary
Blood/Venous No Growth in 4 days- Final report to follow
08/16/24 11:25 Urine Culture - Final
Urine NO GROWTH
08/16/24 16:18 C. difficile GDH Antigen & Toxins - Final
Feces/Stool C. difficile antigen positive, toxin negative.
Clostridium difficile present, but toxin not detected.
Patient may be a carrier, colonized with nontoxinogenic
strain or the level of toxin in sample is below detection
limits. This information should be used in conjunction with
the patient's clinical history.
08/13/24 05:31 Salmonella/Shigella Culture - Final
Feces/Stool No Salmonella, Shigella, Aeromonas or Plesiomonas species
isolated.
Campylobacter Culture - Final
No Campylobacter species isolated.
Shiga Toxin Test - Final
No E. coli Shiga Toxin 1 or 2 detected.
Stool Leukocytes - Final
08/15/24 04:21 Influenza Types A & B (KHANG) - Final
Nasal Swab Negative for Influenza A & B, NAAT
Negative results must be combined with clinical observations
and patient history.
Nucleic Acid Amplification test (NAAT)performed on the
[employer] platform.
08/13/24 05:31 C. difficile GDH Antigen & Toxins - Final
Feces/Stool C. difficile antigen positive, toxin negative.
Clostridium difficile present, but toxin not detected.
Patient may be a carrier, colonized with nontoxinogenic
strain or the level of toxin in sample is below detection
limits. This information should be used in conjunction with
the patient's clinical history.
- Final
Negative for Norovirus GI and GII.
08/07/24 11:39 Blood Culture - Final
Blood/Venous No Growth - Final Report
08/07/24 11:27 Blood Culture - Final
Blood/Venous No Growth - Final Report
08/07/24 10:52 Respiratory Culture - Final
Sputum NO GROWTH
Gram Stain - Final
08/03/24 03:28 Blood Culture - Final
Blood/Venous No Growth - Final Report
08/03/24 03:41 Blood Culture - Final
Blood/Venous No Growth - Final Report
08/01/24 18:19 Blood Culture - Final
Blood/Venous No Growth - Final Report
08/01/24 15:36 Blood Culture - Final
Blood/Venous No Growth - Final Report
07/31/24 12:18 Respiratory Culture - Final
Endotracheal S aureus-Methicillin Sensitive
Gram Stain - Final
07/31/24 07:54 Blood Culture - Final
Blood/Venous Streptococcus salivarius
Gram Stain - Final
07/31/24 07:54 Blood Culture - Final
Blood/Venous Streptococcus salivarius
Gram Stain - Final
07/31/24 11:49 Legionella Urinary Antigen - Final
Urine Negative for Legionella pneumophila Serogroup 1 antigen.
A negative result does not rule out the possiblity of
Legionella infection due to other serogroups or species of
Legionella. Clinical correlation is recommended.
Streptococcus pneumoniae Antigen (M - Final
Negative for Streptococcus pneumoniae antigen.
A negative result does not exclude infection with
Streptococcus pneumoniae. Clinical correlation is
recommended.
07/31/24 12:18 Nasal Screen MRSA (PCR) - Final
Nose MRSA not detected - performed by PCR methodology.
07/31/24 08:10 Influenza Types A & B (KHANG) - Final
Nasal Swab Negative for Influenza A & B, NAAT
Negative results must be combined with clinical observations
and patient history.
Nucleic Acid Amplification test (NAAT)performed on the
[employer] platform.
08/04/24 CXR: Moderate pulmonary edema, without significant change.
[2024-08-19] MEDS: STERILE WATER FOR INJECTION 10 ML IV (15:00)
[2024-08-19] MEDS: MAXIPIME 1000 MG IV (15:25)
--- NOTE | 2024-08-19 16:19 | PTCARENOTE ---
Pt incontinent of large amount of liquid brown BM- sacral soiled and changed. Pt OOB to reclining chair w/ use of ceiling lift in room-tolerated well. continues to visit in room. No additional changes from previous assessment findings. Call
amee remains w/in pt reach
--- NOTE | 2024-08-19 18:07 | PTCARENOTE ---
Returned to bed using ceiling lift. Tolerated transfer and increased activity w/o complication. Occasional inappropriate confused comment but reorients w/o difficulty. No additional changes from previous assessment findings.
--- NOTE | 2024-08-19 18:18 | W.PN.UPDATE ---
Update Note
Progress Note Update
Patient has been stable throughout the day
Tolerated transfusion
Remains on room air
Strong cough effort-mental status stable
Transfer to telemetry
Critical care team will sign off
Please call pulmonary if any respiratory issues arise
[2024-08-19] MEDS: ATIVAN 1 MG PO (20:19)
--- NOTE | 2024-08-19 21:05 | PTCARENOTE ---
Received pt resting in bed, AAOx3 but forgetful at times. ALCANTARA but weak throughout. Afib on tele, HR 100s. BP 100s/60s. + pulses. +2 gen anasarca. Afebrile. SCDs maintained. On RA, spo2 100%. To wear bipap HS. Strong, nonproductive cough. Used
acapella with encouragement. Round, obese abd. + bowel sounds. On pureed diet, nectar thick liquids. Rectal trumpet in place draining minimal amt brown liquid - flushed. No urine output. Sacral dressing c/d/i. Fiber filled boots. R DL PICC and L
midline in place- capped and patent. R CW HD cath in place. Turning q2. Percussion q4hrs. Call lubin in reach
--- NOTE | 2024-08-19 23:17 | PTCARENOTE ---
Report given to sherrie RN. Pt. transferred with belongings to room 334.
[2024-08-20] VITALS (7 sets, daily range): BP systolic 79–127; BP diastolic 48–66; BMI 37.6
[2024-08-20] MEDS: ATIVAN 1 MG PO (02:48)
[2024-08-20] MEDS: FLAGYL 500 MG 100 IV ×2 (05:05→13:18)
[2024-08-20 07:43] LABS: Hematocrit 27.2 % (39.0-52.0); Hemoglobin 8.6 g/dL (13.0-18.0); Mean Corp Hgb Conc. 31.6 g/dL (33.0-37.0); Mean Corpuscular Hgb 29.2 pg (27.0-31.0); Mean Corpuscular Volume 92.2 fL (80.0-94.0); Platelet Count 115 10^3/uL (130-400); Red Blood Cell Count 2.95 10^6/uL (4.70-6.10); Red Cell Dist. Width 24.4 % (11.5-14.5); White Blood Cell Count 6.9 10^3/uL (4.8-10.8)
[2024-08-20 08:11] LABS: Blood Urea Nitrogen 58 mg/dl (9-20); Calcium 7.2 mg/dl (8.4-10.2); Carbon Dioxide 22 mmol/L (22-30); Chloride 103 mmol/L (98-107); Estimated Creatinine Clearance 24 ml/min; Glucose 96 mg/dl (70-99); Potassium 3.4 mmol/L (3.5-5.1); Sodium 137 mmol/L (135-145); eGFR 15.21
[2024-08-20] MEDS: NSS (PRESERVATIVE FREE) 10 ML IV ×2 (08:24→20:54)
[2024-08-20] MEDS: MUCINEX 1200 MG PO ×2 (08:25→20:55)
[2024-08-20] MEDS: PROTONIX IV 40 MG IV ×2 (08:25→20:54)
[2024-08-20] MEDS: LOPRESSOR 12.5 MG PO (08:26)
[2024-08-20] MEDS: SANTYL OINTMENT 1 APPLIC TOPICAL (08:27)
--- NOTE | 2024-08-20 09:59 | W.PN.HOSP.TC ---
Today's Communication/Plan
-
Continue antibiotics
Continue attempts at heart rate control with increased dose of beta nirav
Patient's to discuss code status with patient
Assessment / Plan
Assessment / Plan
Physical Exam
General: Not in acute distress
HEENT: Normocephalic and Atraumatic
Respiratory: Equal air entry bilaterally, rhonchi bilaterally
Cardiac: Irregular Rhythm and S1/S2
GI: Soft and Nontender. Positive bowel sounds.
Musculoskeletal: No cyanosis. No edema
Neuro: Alert. Awake.
Psych: Calm
Assessment/Plan
Mr. Иван Redd is a 64-year-old man with a past medical history of recently diagnosed colorectal cancer, persistent atrial fibrillation, essential hypertension who presents to the ER with dizziness. Patient reports feeling unwell for the last
2 days. He was recently started on metoprolol and Eliquis for atrial fibrillation. Overnight admission patient developed acute respiratory failure in setting of high fever with finding MSSA in blood and sputum; development of renal failure
requiring CRRT.
#Acute Respiratory Failure requiring intubation - extubated 08/17/24
#MSSA in Sputum Culture
#Streptococcus salivarius bacteremia via BCx from 07/31/2024
#New splenic infarct
#Septic Shock
#Acute Renal Failure
#Hyperkalemia
#Lactic Acidosis
#Metabolic acidosis with increased anion gap due to severe CHRISS
#Non-Ischemic Myocardial Injury
-Status post intubation morning of 07/31 during rapid response; extubated 08/08 to BIPAP. Was on room air.
-initial concern for flash pulmonary edema given acute SOB, CXR read and patient had been receiving IVF. IV lasix given without significant output and worsening renal function; renal consulted and patient initiated on CRRT on 08/01 given worsening
renal function, essentially no urine output and hyperkalemia. CRRT previously stopped and now on HD via tunneled cath. HD schedule per Nephrology.
-08/01: culture results showing MSSA in Sputum and Blood
-TTE results - no vegetation
-Flat Grinder Operator consult appreciated
-Cardiology consult appreciated
-Nephrology consult appreciated
08/15/2024 morning, patient started having increased work of breathing and could not tolerate BiPAP. Then intubated. Flat Grinder Operator following.
08/16/2024, patient was unable to be ventilated properly, status post deep suction. Appears severe mucous plugging. Oxygenation later improved after suctioning.
CONTINUES ON ROOM AIR (extubated on 08/17/24)
Was on Levophed -- weaned off Levophed on 08/19/24 at 3 AM
Unclear if there was any aspiration event, given worsening leukocytosis and intubation. On cefepime and Flagyl. ID following
Blood culture NGTD
Venous Doppler negative for DVT
C. diff antigen positive, toxin negative. P.o. vancomycin while on antibiotics
Continue Zosyn
#Acute rectal bleeding in the setting of colorectal carcinoma/heparin infusion - now resolved
#Known history of colorectal Adenocarcinoma with possible lung mets
#Metastatic colorectal cancer with suspected lung metastasis (diagnosed via colonoscopy on 06/22/2024 with partially obstructing tumor seen in the rectum 4
cm from the anal verge, invasive low-grade colorectal adenocarcinoma)
#PET avid 2.2 cm right upper lobe nodule originally planned for robotic bronchoscopy on 08/03/2024 (will be deferred for now)
- s/p CTA without active bleeding source. No role for IR intervention. Source felt be related to known colon masses, although diverticular disease or AVMs possible.
- was previously Scheduled for lung biopsy as outpatient
- patient had not yet started chemotherapy
- GI following
- 1 unit of PRBC given on 08/19/24 given the drop in Hgb with associated tachycardia
#Persistent Atrial Fibrillation, with Rapid Ventricular Response
#Hypotension
-Outpatient, patient was on Toprol-XL 200 mg p.o. twice daily at one point.
-Off anticoagulation with active bleed episode; family aware of stroke risk
-Beta nirav resumed in the form of low-dose Lopressor: 12.5 mg BID --> increased to 25 mg BID given heart rate control remains poor in A-fib, consideration to possibly start digoxin per cardiology, possible consideration for starting amiodarone
but LFTs have been abnormal
-Patient may need Midodrine
-Not felt to be present OAC candidate due to being high risk for recurrent GI bleeding due to rectal masses per GI.
-Cardiology follow-up after discharge for possible Watchman Device placement
-DuoNebs previously stopped due to tachycardia. Xopenex as needed started for secretion clearance.
#Acute HFpEF Exacerbation
#Toxic Metabolic Encephalopathy
-critical illness, recent sedation
-monitor mentation -- now more alert
-CTH negative 08/08
-s/p VSE 08/13; now on dysphagia diet. ongoing speech evals.
#Transaminitis secondary to hypoxic liver
#Dysphagia
-Continue speech therapy evaluations
#Constipation
- bowel regimen prn
#Essential Hypertension
- hold CCU NURSE Olmesartan-HCTZ
- Continue low dose Lopressor as above
#Hyperlipidemia
- hold rosuvastatin
#Acute Thrombocytopenia
- HIT panel negative
Monitor
#Sacral/buttocks DTI
- fecal management system placement attempted, unable to stay in per RN
- wound care service following; suspect stage III or stage IV pressure injury. Consider surgical evaluation if symptoms do not improve
ID is also following
#History of HAN on auto CPAP
-Nocturnal BiPAP encouraged
#History of psoriasis previously on Enbrel
#History of hepatitis A
#History of COVID-19 (03/2024)
#Restrictive lung disease (suspected based on spirometry from 05/15/2021, however patient was coughing during testing and post-bronchodilator FVC was WNL at 84% predicted)
DVT Prophylaxis: SCDs - not a candidate for pharmacological prophylaxis due to GI bleed
Diet: Per speech, VSE completed on 08/20/24, patient did great, no aspiration; can advance diet to regular solids/thin liquids
Code Status: Limited DNR -- on 08/20/24, I spoke with patient's extensively about this, I thoroughly explained code status to her, I explained to her that as the order currently stands, it says to perform no CPR and no defibrillation, patient's
fully understood this and did not object to this, patient's said she will discuss with the patient code status again to determined whether he should be switched to Full Code or DNR.
Anticipated Discharge: > 48 hours
Subjective/Interval History
-
Date of Service: August 20, 2024
Patient was seen and examined. He denied any symptoms or complaints.
Objective Data
-
Labs:
Laboratory Results
08/20/24
07:37
WBC 6.9
Hgb 8.6 L
Hct 27.2 L
Plt Count 115 L
Sodium 137
Potassium 3.4 L
Chloride 103
Carbon Dioxide 22
BUN 58 H
Creatinine 4.2 H*
Glucose 96
Calcium 7.2 L
Vital Signs:
Vital Signs
Temp Pulse Resp BP Pulse Ox
98.3 F 116 28 96/48 96
08/20/24 08:03 08/20/24 07:50 08/20/24 07:50 08/20/24 07:50 08/20/24 07:50
I&O
08/19/24 08/20/24 08/21/24
06:59 06:59 06:59
Intake Total 1298.0 / 1298.0 1050 / 1050
Output Total 375 / 375
Balance 923.0 / 923.0 1050 / 1050
--- NOTE | 2024-08-20 10:04 | PTOTSP ---
Dysphagia Therapy
Impression: Suspect at least mild oral/pharyngeal dysphagia. Cannot rule out aspiration/silent aspiration bedside. Patient at increased risk for acute dysphagia and changes to laryngeal function given repeated intubations this admission (x2),
however dysphonia resolving. Video swallow study warranted to objectively assess swallowing function and rule out aspiration. Silent aspiration noted with thin liquids on video swallow study 08/13/2024.
Plan of care:
1. Advance to IDDSI Level 7 Regular Solids, continue IDDSI Level 2 Mildly Thick Liquids
2. Medications: in puree
3. Resume Aspiration Risk Hydration Protocol to allow unlimited ice chips after oral care with supervision
4. Strategies: upright to 90 degrees, FULL supervision, assist as needed, single sips, slow rate
5. Video swallow study to objectively assess swallow function after second intubation and r/o silent aspiration
6. Dysphagia tx for instruction in compensations. Further POC pending repeat video swallow study.
--- NOTE | 2024-08-20 10:45 | PTOTSP ---
Speech Language Pathology
VIDEOFLUOROSCOPIC SWALLOWING EXAMINATION (VSE) completed. Oropharyngeal swallow WNL. Infrequent trace base of tongue residue noted. With 1/2 trials of thin liquids via tsp, supraglottic penetration noted. No other penetration or any aspiration
noted.
Recommend:
(1) Upgrade to regular solids/thin liquids
(2) General aspiration precautions
(3) Meds as tolerated
(4) SENIOR DATA QUALITY ANALYST to continue to follow for diet tolerance. Will also determine appropriateness of speech/cognitive-linguistic evaluations
--- NOTE | 2024-08-20 10:49 | W.PN.CARDCBS ---
Addendum entered and electronically signed by Delmar Man MD 08/20/24 12:34:
I saw and examined the patient.
The NEWSPAPER INSERTER or PA's note was reviewed and I agree with the note.
Comment: General: Well developed, well nourished in NAD.
Neck: Supple, no JVD, HJR, carotids +2 B/L, no bruits bilaterally.
Heart: Non displaced PMI, irregular, no murmurs, No S3, S4, no rubs.
Lungs: Scattered rhonchi
Extremities: No clubbing, cyanosis or edema bilaterally.
Neuro: Grossly nonfocal, awake, alert and oriented x3.
Heart rate control remains poor in A-fib. Will try to increase Lopressor if blood pressure tolerates it. Of note patient was on Toprol-XL 200 mg p.o. twice daily at one point. We could load with digoxin. In addition could consider amiodarone but
LFTs have been abnormal. Will recheck LFTs. He may eventually need midodrine. Discussed with at bedside
Original Note:
Today's Communication / Plan
-
uptitrate metoprolol for rate control
Impression / Plan
-
Primary Catalyst Operator Gasoline: Dr. Hiren Vicente
Impression:
MSOF (resp failure, CHF, liver failure, renal failure)
Recent diagnosis paroxysmal atrial fibrillation with recurrent AFib with RVR
splenic infarct
GI bleeding
Hypotension previously requiring pressors, weaned off 08/19/2024
CHRISS (likely as a consequence of hypotension, possibly from septic shock versus cardiogenic shock or combination of both), now on HD
Acute hypoxic respiratory failure requiring intubation 07/31/24, weaned from vent then re-intubated 08/15/2024, extubated 08/17/2024
Liver failure (likely as a consequence of hypotension, possibly from septic shock versus cardiogenic shock or combination of both)
Fever
Sepsis, s aureus PNA, possible S aureus bacteremia
Acute diastolic CHF
Colorectal cancer, suspected metastatic, diagnosed 06/22/2024, not yet started on therapy
Pulmonary nodule with concern for metastasis, scheduled for lung biopsy 08/03
Hypertension
Hyperlipidemia
Obstructive sleep apnea
Obesity
Edema
ECHO 07/31/24: Normal LV function. LVEF is 55-60%. No wall motion abnormality. Top normal right ventricular size with normal RV function. Mild AI and mild TR. Estimated pulmonary artery pressure of 38 mmHg
Plan:
-Presented MSOF (resp failure, CHF, liver failure, renal failure), shock, sepsis, lactic acidosis
-remains in persistent afib with elevated HRs
-telem personally reviewed, HRs 100-110s
-Metoprolol restarted 08/19/2024 at 12.5 mg bid
-uptitrate Metoprolol to 25 mg bid for better rate control,hold for SBP <95
-could consider Midodrine if needed for BP support
-could consider adding digoxin for rate control, renal dosing
-LFTs elevated, would not use Amio at this time
-evidence of splenic infarct by imaging 08/06/24
-he had bloody BM on IV heparin earlier in hospital stay. not felt to be present OAC candidate due to being high risk for recurrent GI bleeding due to rectal masses per GI. hgb stable. He is [id number]-HNAg score of 1 (hypertension). once recovered,
could consider candidacy for watchman.
-rec'd transfusion 08/19/2024, Hgb up to 8.6 08/20/2024
-echo with preserved EF this admission.
-started on HD this admission, continue volume mgmt as able through HD
-spoke w/ and nursing
HPI:
64-year-old man with recently diagnosed colorectal cancer with possible lung metastasis and recent diagnosis of atrial fibrillation who presented with lightheadedness and dizziness after starting oral metoprolol as an outpatient and presented to
[facility] emergency department for further management. After being found to have CHRISS and anemia he was admitted for further management. Unfortunately developed increased work of breathing this morning, became tachycardic and was found to be
febrile. Did not clinically improve with BiPAP and he was subsequently intubated and transferred to the medical ICU for further management. Currently being treated with broad-spectrum antibiotics and requiring pressor support.
Seen in the outpatient cardiology office 07/26/24 and was in AF with a rapid ventricular rate of 130 bpm. At that visit he had yet to initiate Toprol-XL which was ordered by his primary care physician. At that office visit he agreed to initiate
Toprol-XL 25 mg daily for rate control with plan to defer recommendations regarding rhythm control until he was adequately anticoagulated (atrial fibrillation of unknown duration) and to allow for intermittent interruption of anticoagulation for
planned upcoming procedures regarding his recently diagnosed colorectal cancer with likely pulmonary metastases (bronchoscopy, port placement, colorectal surgery). Eliquis 5 mg twice daily was also initiated on 07/26/24..
Cardiology is consulted for possible heart failure as a cause of his respiratory decompensation. proBNP was mildly elevated (3210), it is possible there is some component of heart failure with preserved ejection fraction.
On presentation to the emergency department 07/30/24, he was in atrial fibrillation with reasonably controlled ventricular rate of 105 bpm. EKG of July 31, 2024 finds sinus rhythm at 77 bpm.
Progress Note - Catalyst Operator Gasoline
Subjective
Date of Service: August 20, 2024
HRs remain elevated on Metoprolol 12.5 mg bid
denies lightheadedness, dizziness, palps
Objective
Labs:
08/20/24 07:37
08/20/24 07:37
Labs
Hgb 8.6 g/dL (13.0-18.0) L 08/20/24 07:37
Hct 27.2 % (39.0-52.0) L 08/20/24 07:37
Plt Count 115 10^3/uL (130-400) L 08/20/24 07:37
PT 19.5 Sec (11.4-14.6) H 08/07/24 11:27
INR 1.62 08/07/24 11:27
APTT 54.9 Sec (23.4-35.0) H 08/07/24 11:27
Sodium 137 mmol/L (135-145) 08/20/24 07:37
Potassium 3.4 mmol/L (3.5-5.1) L 08/20/24 07:37
BUN 58 mg/dl (9-20) H 08/20/24 07:37
Creatinine 4.2 mg/dL (0.7-1.3) H* 08/20/24 07:37
Glucose 96 mg/dl (70-99) 08/20/24 07:37
Vital Signs and I&O:
Vital Signs
Temp Pulse Resp BP Pulse Ox
98.3 F 116 28 96/48 96
08/20/24 08:03 08/20/24 07:50 08/20/24 07:50 08/20/24 07:50 08/20/24 07:50
Vital Signs
Temp Pulse Resp BP Pulse Ox
98.3 F 116 28 96/48 96
08/20/24 08:03 08/20/24 07:50 08/20/24 07:50 08/20/24 07:50 08/20/24 07:50
Intake & Output
08/18/24 08/19/24 08/20/24 08/21/24
06:59 06:59 06:59 06:59
Intake Total 1242.6 / 1246.4 1298.0 / 1298.0 1050 / 1050
Output Total 375 / 375
Balance 1242.6 / 1246.4 923.0 / 923.0 1050 / 1050
Physical Exam
Physical Exam
GEN: No distress, awake
HEENT: supple, anicteric, mmm
LUNGS: CTA, no wheezes/rales
CV: tachy, irreg, irreg, no murmur
ABD: soft, BS+, NT/ND
EXT: No edema
NEURO: Gross non-focal
SKIN: No rash
[2024-08-20] MEDS: MAXIPIME 1000 MG IV (13:17)
[2024-08-20] MEDS: STERILE WATER FOR INJECTION 10 ML IV (13:17)
[2024-08-20] MEDS: HYDROPHOR 1 APPLIC TOPICAL (13:21)
--- NOTE | 2024-08-20 13:35 | W.PN.NEPH.PH ---
Today's Communication / Plan
-
Dialysis tomorrow
Assessment/Plan
-
64-year-old man with recently diagnosed colorectal cancer with possible lung metastasis and recent diagnosis of atrial fibrillation who presented with lightheadedness and dizziness after starting oral metoprolol as an outpatient and presented to
[facility] emergency department. He presented in acute kidney injury admitted to the floors upgraded to the ICU for increased work of breathing ultimately intubated in the ICU with hyperkalemia.
Patient is critically ill on pressor support essentially anuric.
Positive blood cultures pending organism. Staph aureus sputum culture.
Renal consult for acute kidney injury and hyperkalemia
Impression.
Acute kidney injury and hyperkalemia secondary to septic shock.
Colorectal cancer newly diagnosed June 2024 with possible lung metastasis
Atrial fibrillation on oral anticoagulation
Bacteremia/sepsis
Plan.
next HD planned for Tuesday
remains in AFIB with tachycardia
abx per ID
monitor h/h , concern of GIB , so no anticoagulation in setting of AFIB
No acute need for dialysis today his was at the bedside and discussed.
No signs of recovery from a renal standpoint
-
-
Date of Service: August 20, 2024
CC / HPI / ROS
-
Chief Complaint:
Septic shock
History of Present Illness:
tolerated HD now TTS
Hemoglobin low at 7.5
Extubated on 08/17/2024
now off pressors
Review of Systems:.
awake and alert
no sob or chest pain
some uop, pvr bladders scan , straight cath for 375cc
Labs
-
Labs:
WBC 6.9 10^3/uL (4.8-10.8) 08/20/24 07:37
RBC 2.95 10^6/uL (4.70-6.10) L 08/20/24 07:37
Hgb 8.6 g/dL (13.0-18.0) L 08/20/24 07:37
Hct 27.2 % (39.0-52.0) L 08/20/24 07:37
Plt Count 115 10^3/uL (130-400) L 08/20/24 07:37
Sodium 137 mmol/L (135-145) 08/20/24 07:37
Potassium 3.4 mmol/L (3.5-5.1) L 08/20/24 07:37
Chloride 103 mmol/L (98-107) 08/20/24 07:37
Carbon Dioxide 22 mmol/L (22-30) 08/20/24 07:37
BUN 58 mg/dl (9-20) H 08/20/24 07:37
Creatinine 4.2 mg/dL (0.7-1.3) H* 08/20/24 07:37
eGFR 15.21 08/20/24 07:37
Glucose 96 mg/dl (70-99) 08/20/24 07:37
Calcium 7.2 mg/dl (8.4-10.2) L 08/20/24 07:37
Phosphorus 4.5 mg/dl (2.5-4.5) 08/08/24 08:31
Omp-E-Lkiyzwrxeki Pept 2850 pg/ml 08/06/24 03:26
Albumin 2.8 g/dl (3.5-5.0) L 08/14/24 05:48
Physical Exam
-
Vital Signs:
Vital Signs
Temp Pulse Resp BP Pulse Ox
98.6 F 112 20 114/52 100
08/20/24 12:22 08/20/24 12:35 08/20/24 12:22 08/20/24 12:35 08/20/24 12:22
Cardiovascular:: Irregular rate and rhythm
Respiratory:: Bilateral: Coarse
Lung Excursion:: Normal
Abdomen:: Nontender and Soft
Extremity Edema:: +1: Bilateral:
Alvarez Catheter: No
--- NOTE | 2024-08-20 15:02 | W.PN.ID1 ---
Date of Service
Date of Service: August 20, 2024
Today's Communication
Discontinue antibiotics and observe.
Assessment / Plan
s/p Relapsed shock without a clear source
- improved
Colonization with C. difficile
Possible UTI
S aureus (MSSA) Pneumonia - resolved
Strep salivarius bacteremia x 2 sets drawn at the same time - most likely contaminant
CHRISS on HD
Class III Obesity
Colorectal Adenocarcinoma - not yet on treatment
Psoriatic Arthritis - currently off of Enbrel since ~05/03
Ileus
- Currently cefepime (d#5) // metronidazole (d#5)
- blood cultures x2 negative
- covid and influenza negative 08/15
- UA mild pyuria
- no C diff toxin production at this time
- leukocytosis resolved
-Sputum C. albicans (no significance)
D/C abx and observe
����������������������������������������������������������
Chief Complaint
-: Pneumonia (S aureus), Bacteremia (streptococcus) and Other (shock)
Subjective / Review of Systems
Review of Systems: No Fever and No Chills
Vital Signs / Physical Exam
Vital Signs
Vital Signs
Temp Pulse Resp BP Pulse Ox
98.6 F 112 20 114/52 100
08/20/24 12:22 08/20/24 12:35 08/20/24 12:22 08/20/24 12:35 08/20/24 12:22
Physical Exam
Constitutional: Comfortable and Chronically Ill
Cardiovascular: Irregular Rate and S1/S2; Negative S3/S4
Pulmonary: Clear (anteriorly)
Gastrointestinal: Soft, Non Tender, Non Distended and Normal Bowel Sounds
Genito-Urinary: Negative CVA Tenderness
Extremities: Negative Edema
Neurological: Awake, Alert and Other (lethargic)
Objective Data
Lab Data
Lab Results
08/20/24 07:37
08/20/24 07:37
PT 19.5 Sec (11.4-14.6) H 08/07/24 11:27
INR 1.62 08/07/24 11:27
APTT 54.9 Sec (23.4-35.0) H 08/07/24 11:27
Estimated Creat Clear 24 ml/min 08/20/24 07:37
Lactic Acid 1.7 mmol/L (0.7-2.0) 08/06/24 03:26
Total Bilirubin 4.1 mg/dl (0.2-1.3) H 08/14/24 05:48
AST 229 U/L (17-59) H 08/14/24 05:48
ALT 103 U/L (0-50) H 08/14/24 05:48
Alkaline Phosphatase 340 U/L (38-126) H 08/14/24 05:48
Most recent labs reviewed.
Micro Results:
08/15/24 04:30 Blood Culture - Final
Blood/Venous No Growth - Final Report
08/15/24 04:30 Blood Culture - Final
Blood/Venous No Growth - Final Report
08/17/24 10:00 Respiratory Culture - Final
Sputum Brianne albicans
Gram Stain - Final
08/16/24 11:25 Urine Culture - Final
Urine NO GROWTH
08/16/24 16:18 C. difficile GDH Antigen & Toxins - Final
Feces/Stool C. difficile antigen positive, toxin negative.
Clostridium difficile present, but toxin not detected.
Patient may be a carrier, colonized with nontoxinogenic
strain or the level of toxin in sample is below detection
limits. This information should be used in conjunction with
the patient's clinical history.
08/13/24 05:31 Salmonella/Shigella Culture - Final
Feces/Stool No Salmonella, Shigella, Aeromonas or Plesiomonas species
isolated.
Campylobacter Culture - Final
No Campylobacter species isolated.
Shiga Toxin Test - Final
No E. coli Shiga Toxin 1 or 2 detected.
Stool Leukocytes - Final
08/15/24 04:21 Influenza Types A & B (KHANG) - Final
Nasal Swab Negative for Influenza A & B, NAAT
Negative results must be combined with clinical observations
and patient history.
Nucleic Acid Amplification test (NAAT)performed on the
[employer] platform.
08/13/24 05:31 C. difficile GDH Antigen & Toxins - Final
Feces/Stool C. difficile antigen positive, toxin negative.
Clostridium difficile present, but toxin not detected.
Patient may be a carrier, colonized with nontoxinogenic
strain or the level of toxin in sample is below detection
limits. This information should be used in conjunction with
the patient's clinical history.
- Final
Negative for Norovirus GI and GII.
08/07/24 11:39 Blood Culture - Final
Blood/Venous No Growth - Final Report
08/07/24 11:27 Blood Culture - Final
Blood/Venous No Growth - Final Report
08/07/24 10:52 Respiratory Culture - Final
Sputum NO GROWTH
Gram Stain - Final
08/03/24 03:28 Blood Culture - Final
Blood/Venous No Growth - Final Report
08/03/24 03:41 Blood Culture - Final
Blood/Venous No Growth - Final Report
08/01/24 18:19 Blood Culture - Final
Blood/Venous No Growth - Final Report
08/01/24 15:36 Blood Culture - Final
Blood/Venous No Growth - Final Report
07/31/24 12:18 Respiratory Culture - Final
Endotracheal S aureus-Methicillin Sensitive
Gram Stain - Final
07/31/24 07:54 Blood Culture - Final
Blood/Venous Streptococcus salivarius
Gram Stain - Final
07/31/24 07:54 Blood Culture - Final
Blood/Venous Streptococcus salivarius
Gram Stain - Final
07/31/24 11:49 Legionella Urinary Antigen - Final
Urine Negative for Legionella pneumophila Serogroup 1 antigen.
A negative result does not rule out the possiblity of
Legionella infection due to other serogroups or species of
Legionella. Clinical correlation is recommended.
Streptococcus pneumoniae Antigen (M - Final
Negative for Streptococcus pneumoniae antigen.
A negative result does not exclude infection with
Streptococcus pneumoniae. Clinical correlation is
recommended.
07/31/24 12:18 Nasal Screen MRSA (PCR) - Final
Nose MRSA not detected - performed by PCR methodology.
07/31/24 08:10 Influenza Types A & B (KHANG) - Final
Nasal Swab Negative for Influenza A & B, NAAT
Negative results must be combined with clinical observations
and patient history.
Nucleic Acid Amplification test (NAAT)performed on the
[employer] platform.
08/04/24 CXR: Moderate pulmonary edema, without significant change.
[2024-08-20] MEDS: KCL 10 MEQ PO (15:22)
--- NOTE | 2024-08-20 17:15 | CM ---
Patient seen at bedside with . Patient interested in [facility] and is stating that they will need assistance with paperwork for FMLA. CM will continue to follow for discharge planning needs.
Plan; acute rehab Pending assessment/bed availability
[2024-08-20] MEDS: XOPENEX 1.25 MG INHALANT SOLUTION INH (19:22)
--- NOTE | 2024-08-20 20:25 | PTCARENOTE ---
during shift report, PCT alerted this RN of increased work of breathing by patient. pt sitting in high jiang's, SaO2 99% on room air. Pt's spouse at bedside, anxious, stating they 'have PTSD.' Respiratory therapist alerted, at bedside to admin prn
Xopenex (refer to MAR). audible wheezing heard, nonproductive harsh cough. continuous pulse ox placed. plan of care ongoing
[2024-08-20] MEDS: LOPRESSOR 25 MG PO (20:55)
--- NOTE | 2024-08-20 22:40 | PTCARENOTE ---
pt states he's unable to tolerate BiPAP HS with his increasing coughing, placed on 2L nasal cannula for comfort by respiratory therapist. continuous pulse ox remains on patient, SaO2 >95%. call lubin within reach
[2024-08-21] VITALS (131 sets, daily range): BP systolic 36–179; BP diastolic 10–118; BMI 38.0
[2024-08-21] MEDS: XOPENEX 1.25 MG INHALANT SOLUTION INH ×2 (00:46→13:28)
--- NOTE | 2024-08-21 00:50 | PTCARENOTE ---
Pt's breathing heard from hallway, increasingly harsh cough. Pt states he's unable to clear secretions, visibly short of breath. Stridor audible.
Respiratory therapist on floor to admin second prn Xopenex at approx [phone]. RENUKA Singletary notified.
--- NOTE | 2024-08-21 01:07 | RR ---
A Rapid Response was called on this patient, please see Rapid Response form.
--- NOTE | 2024-08-21 01:34 | W.PN.UPDATE ---
Update Note
Progress Note Update
0115 METHODS AND PROCEDURES ANALYST for stridorous breathing
Pule ox 98% 2L. BP 140s. HR 120s-130s. tachypneic. RN stated he has been having trouble bringing up mucous and became very wheezy. RT was already at bedside giving breathing treatments. Then breath sounds became more stridorous. Pt mentating well.
Still able to maintain airway at present time. Given pt long difficult hospitalization and freq bouts of spontaneous resp distress requiring intubations. Decision made to upgrade back to icu for closer monitoring of respiratory status.
LAbs
CXR
decadron
Adriana updated on event and upgrade to icu
[2024-08-21 01:37] LABS: Hematocrit 27.9 % (39.0-52.0); Mean Corp Hgb Conc. 32.3 g/dL (33.0-37.0); Mean Corpuscular Hgb 29.9 pg (27.0-31.0); Mean Corpuscular Volume 92.7 fL (80.0-94.0); Mean Platelet Volume 9.7 fL (7.4-10.4); Platelet Count 112 10^3/uL (130-400); Red Blood Cell Count 3.01 10^6/uL (4.70-6.10); Red Cell Dist. Width 23.9 % (11.5-14.5); White Blood Cell Count 8.2 10^3/uL (4.8-10.8)
[2024-08-21] MEDS: DECADRON 4 MG IV (01:37)
[2024-08-21 01:42] LABS: INR 1.34; PT 16.9 Sec (11.4-14.6)
[2024-08-21 01:43] LABS: ALT (SGPT) 39 U/L (0-50); APTT 38.5 Sec (23.4-35.0); AST (SGOT) 55 U/L (17-59); Albumin 2.4 g/dl (3.5-5.0); Alkaline Phosphatase 188 U/L (38-126); Blood Urea Nitrogen 61 mg/dl (9-20); Calcium 7.1 mg/dl (8.4-10.2); Carbon Dioxide 20 mmol/L (22-30); Chloride 106 mmol/L (98-107); Estimated Creatinine Clearance 26 ml/min; Glucose 102 mg/dl (70-99); Magnesium 1.9 mg/dl (1.6-2.3); Phosphorus 5.5 mg/dl (2.5-4.5); Potassium 3.8 mmol/L (3.5-5.1); Sodium 136 mmol/L (135-145); Total Bilirubin 2.3 mg/dl (0.2-1.3); Total Protein 5.3 g/dl (6.3-8.2); eGFR 16.62
[2024-08-21 01:57] LABS: Troponin I 0.285 ng/ml
[2024-08-21] MEDS: LOPRESSOR 2.5 MG IV (02:37)
--- NOTE | 2024-08-21 02:45 | PTCARENOTE ---
Assumed care of pt from previous RN. Pt s/p rapid response for increased work of breathing. To ICU room 3362. Pt oriented to person, place, and time. A-fib on the tele monitor. HR 120s-130. BP stable at 110s-130s/50s. Palpable pulses throughout. +2
LE edema. +1 generalized throughout. Pt on 4 L NC w/ simple mask on top. POX 100%. 4mg Decadron upon arrival - see MAR. Pt w/ wheezing. Respirations ~20s. Pt states his breathing feels better. Frequent harsh cough. Sometimes productive. Abdomen
soft/round. +BSx4. Pt incontinent. Instructed to ring for help w/ urinal. Sacral pressure ulcer re-dressed. Right upper arm PICC C/D/I. Left midline C/D/I. Right upper chest HD catheter C/D/I. Pt oriented to room and updated on plan of care.
updated over the phone. Pt denies pain at this time. 2.5 mg IV Lopressor for HR >120s, see MAR. See worklist for full nursing assessment and interventions. Call lubin within reach.
[2024-08-21 04:54] LABS: ALT (SGPT) 38 U/L (0-50); AST (SGOT) 52 U/L (17-59); Albumin 2.4 g/dl (3.5-5.0); Alkaline Phosphatase 181 U/L (38-126); Blood Urea Nitrogen 61 mg/dl (9-20); Calcium 7.1 mg/dl (8.4-10.2); Carbon Dioxide 21 mmol/L (22-30); Chloride 104 mmol/L (98-107); Estimated Creatinine Clearance 27 ml/min; Glucose 107 mg/dl (70-99); Potassium 3.7 mmol/L (3.5-5.1); Sodium 135 mmol/L (135-145); Total Bilirubin 2.3 mg/dl (0.2-1.3); Total Protein 5.3 g/dl (6.3-8.2); eGFR 17.15
--- NOTE | 2024-08-21 07:39 | CON.INTV ---
Consultation
Consultation Request
Date/Time Consultation Requested: 08/21/2024-8 AM
Date/Time Consultation Performed: 08/21/2024-8 AM
Requesting Provider: Hospitalist
Performing Provider: Dr. Covington
Reason for Consultation: PEA arrest/ventilator/critical care management
Medical History
-
Chief Complaint: Shortness of breath
History of Present Illness:
64-year-old male recently diagnosed with advanced colorectal carcinoma as well as a lung nodule that was supposed to be biopsied and ended up in the emergency room with dizziness and atrial fibrillation, renal failure and has had a lengthy
hospitalization including a couple intubations with doing well on the floor and had sudden onset shortness of breath came to the ICU where he had inspiratory stridor, difficulties breathing and PEA arrest-pulp piler consulted for ventilator/status
post arrest/critical care management 08/21/2024. Prior to code and intubation I was able to speak to the patient briefly, could not answer questions, was in severe distress, and intubation and code was called almost immediately. He was point
towards his neck, there was intermittent stridor.
Past Medical History
Past Medical History: None (Metastatic colorectal cancer with suspected lung metastases-colonoscopy 06/22/2024 with partially obstructing tumor-invasive low-grade colorectal adenocarcinoma. PET avid 2.2 cm right upper lobe nodule plan for robotic
bronchoscopy 07/30/2024-deferred. HAN. Psoriasis. Hepatitis A. Atrial fibrill)
Social History
Tobacco: Non-smoker
Drug: None
Personal:
Living: With Family
Occupational Exposures: No known asbestos exposure
Environmental Exposures: no known tuberculosis exposure
Family History
Family History: Reviewed & Not Pertinent
Allergies / Home Medications
Allergies
Allergy/AdvReac Type Severity Reaction Status Date / Time
No Known Allergies Allergy Verified 07/30/24 16:02
Home Medications
�Medication �Instructions �Recorded �Confirmed �Last Taken �Type
olmesartan 40 1 tab PO HS Blood Pressure 06/22/24 07/30/24 07/29/24 History
mg-hydrochlorothiazide 12.5 mg
tablet
rosuvastatin 10 mg tablet 10 mg PO HS High Cholesterol 06/22/24 07/30/24 07/29/24 History
apixaban 5 mg tablet (Eliquis) 5 mg PO BID Blood Clot 07/30/24 07/30/24 Unknown History
Prevention/Tx
lorazepam 1 mg tablet 1 mg PO HSPRN PRN sleep 07/30/24 07/30/24 07/29/24 History
metoprolol succinate 25 mg 25 mg PO HS Blood Pressure 07/30/24 07/30/24 07/29/24 History
tablet,extended release 24 hr
Review of Systems
-
Unable to Obtain full review of systems at this time due to: Other (Per HPI)
Vitals / Labs / Diagnostic Testing
Vital Signs
Temp Pulse Resp BP Pulse Ox
98 F 121 22 115/56 99
08/21/24 04:00 08/21/24 05:50 08/21/24 05:50 08/21/24 05:30 08/21/24 05:50
Lab Data
08/21/24 01:30
08/21/24 04:05
Laboratory Results
08/21/24
01:30
PT 16.9 H
INR 1.34
APTT 38.5 H
Microbiology
08/15/24 04:30 Blood/Venous Blood Culture - Final
No Growth - Final Report
08/15/24 04:30 Blood/Venous Blood Culture - Final
No Growth - Final Report
08/17/24 10:00 Sputum Respiratory Culture - Final
Brianne albicans
08/17/24 10:00 Sputum Gram Stain - Final
Diagnostic Testing:
Physical Exam
-
Exam:
Well-nourished and well-developed in no apparent distress
HEENT-atraumatic, normocephalic, thick neck,
Neck-supple, no JVD, no bruit, stridor present
Heart-regular rate and rhythm-no murmurs, rubs or gallops
Chest with minimal air movement and stridor
Back-no tenderness
Abdomen-soft, nontender, nondistended, no hepatosplenomegaly
Extremities-no cyanosis, clubbing, edema and good peripheral pulses
Integument-intact, no rashes, lesions or ecchymosis
Neurology-alert and oriented, nonfocal motor and sensory exam
Assessment
-
64-year-old male recently diagnosed with advanced colorectal carcinoma as well as a lung nodule that was supposed to be biopsied and ended up in the emergency room with dizziness and atrial fibrillation, renal failure and has had a lengthy
hospitalization including a couple intubations with doing well on the floor and had sudden onset shortness of breath came to the ICU where he had inspiratory stridor, difficulties breathing and PEA arrest-pulp piler consulted for ventilator/status
post arrest/critical care management 08/21/2024.
Primary respiratory arrest leading to PEA cardiopulmonary arrest
Reintubated 08/21/2024
Upper airway obstruction suspected-? Mucous plug
Recent ventilator dependent respiratory failure from mucous plugging-first 07/31/2024 through 08/08/2024 and then again 08/15/2024 extubated 08/17/2024
Status post PEA arrest 08/21/2024
Anoxic encephalopathy suspected
Jodqlf-prbylmzith-gwighyiucd 9.0
Metabolic acidosis
CHRISS-on dialysis
Recent C. difficile colitis
Conditions present prior to admission:
Metastatic colorectal cancer with suspected lung metastases-colonoscopy 06/22/2024 with partially obstructing tumor-invasive low-grade colorectal adenocarcinoma.
PET avid 2.2 cm right upper lobe nodule plan for robotic bronchoscopy 07/30/2024-deferred.
HAN.
Psoriasis.
Hepatitis A. A
Restrictive lung disease
Plan
Patient admitted to medical intensive care unit intubated after cardiopulmonary arrest-pulmonary driven
Ventilator settings reviewed
Ventilator adjusted
Follow ABG
VAP prevention protocol
Nebulizers if needed-currently not bronchospastic
Mucolytic's
Cardiology following
Atrial fibrillation rate control
Consider amiodarone
Intravenous fluids
Phenylephrine if needed
No obvious aspiration-suspect mucous plugs
Follow temperature curve and WBCs
Observe off antibiotics for now
Monitor neurologic status
Consider neurology evaluation, CT, MRI, perfusion study if mental status does not improve status post code
Monitor hemoglobin
Transfuse if needed
PPI continues
Nephrology following
Hemodialysis per nephrology
DVT prophylaxis
GI prophylaxis while on the ventilator with hemodynamic instability-on PPI
Early nutrition
Early mobilization
Dr. Covington spoke with and updated on current clinical situation-told possibility of anoxic encephalopathy, she would not like further CPR, shocking, or coding but does want ongoing supportive care-we will respect her wishes
Critical care statement: A total of 90 minutes of critical care time was provided for this patient today. This includes management of unstable vital signs, evaluation of the patient at bedside, reviewing the patient's pertinent medical records
including radiographs, ventilator management, code management, pressor management, microbiology, laboratory evaluations, and discussion with primary team, consultants, pharmacy, nutrition, physical therapy, case management, charge nurse, critical
care nursing, and respiratory therapy.
Diagnostic data:
Chest x-ray 08/08/2024-some haziness at the bases and small bilateral pleural effusions
Chest x-ray 08/21/2024-stable position of right internal jugular catheter and a right PICC line, no infiltrates or pneumothorax
Lower extremity ultrasound 08/15/2024-no evidence for DVT
CT chest abdomen and pelvis 07/06/2024-irregular eccentric wall thickening involving the rectum highly concerning for rectal carcinoma, small pelvic lymph nodes, right upper lobe pulmonary nodule 2 cm
PET scan 07/19/2024-hypermetabolic solid pulmonary nodule right upper lobe with initial SUV 9.6 and delayed to 10.6, FDG avid mass upper rectum SUV 25.6
Data Reviewed
-
PFT: Report reviewed by me
EKG: Report reviewed by me
Radiology: Image personally visualized and interpreted and Report reviewed by me
CT Scan: Image personally visualized and interpreted and Report reviewed by me
Ultrasound: Report reviewed by me
Medical Tests (Nuc Med, Echo etc): Image personally visualized and interpreted
Labs: Discussed with Physician
Old Records: Reviewed
Critical Care Time (in minutes): 90
[2024-08-21 08:05] LABS: Glucose - Point of Care 113 mg/dl (70-99)
--- NOTE | 2024-08-21 08:15 | PTCARENOTE ---
Patient went unresponsive while meeting him this morning. he was previously speaking with Dr. Anna at bedside, Dr. Ochoa and I came in to see patient and patient audibly had stridor, was speaking intermittently then stopped breathing.
Patient went unresponsive, obtained ambu bag, patient was limited DNR, no compressions or defibrillation. See code sheet record. Patient went into PEA arrest, was called by Shoshana and asked to do compressions until she was able to get to
bedside. Pulse obtained, patient intubated by anesthesia, vent settings as charted.
--- NOTE | 2024-08-21 08:36 | W.PN.HOSP.TC ---
Today's Communication/Plan
-
PEA Arrest Following Respiratory Arrest Secondary to Suspected Severe Airway Obstruction this morning, ROSC achieved, see firearms instructor notes from today
Suspected Anoxic Encephalopathy
Currently on 3 pressors, bicarb drip, Amiodarone
Discussed with firearms instructor, patient is now DNR
Appreciate firearms instructor and all specialists involved
Assessment / Plan
Assessment / Plan
Physical Exam
General: Not in acute distress
HEENT: Normocephalic and Atraumatic
Respiratory: Equal air entry bilaterally, rhonchi bilaterally
Cardiac: Irregular Rhythm and S1/S2
GI: Soft and Nontender. Positive bowel sounds.
Musculoskeletal: No cyanosis. No edema
Neuro: Alert. Awake.
Psych: Calm
Assessment/Plan
Mr. Иван Redd is a 64-year-old man with a past medical history of recently diagnosed colorectal cancer, persistent atrial fibrillation, essential hypertension who presents to the ER with dizziness. Patient reports feeling unwell for the last
2 days. He was recently started on metoprolol and Eliquis for atrial fibrillation. Overnight admission patient developed acute respiratory failure in setting of high fever with finding MSSA in blood and sputum; development of renal failure
requiring CRRT.
#Acute Respiratory Failure requiring intubation - reintubated on 08/21/24 following inspiratory stridor and difficulty breathing
#Primary respiratory arrest -- suspected possibly from severe mucus plugging -- leading to PEA cardiopulmonary arrest
#Suspected Early Anoxic Brain Injury as results of hypoxia from respiratory arrest
#Metabolic Acidosis
#Recent ventilator dependent respiratory failure from mucous plugging-first 07/31/2024 through 08/08/2024 and then again 08/15/2024 extubated 08/17/2024
-This morning, initially when I saw patient with ICU nurse present in the room, patient was speaking and breathing okay, but a short while later, while discussing patient's case in patient's room with firearms instructor and ICU nurse, patient was noted to
suddenly develop stridor, could not breath, see events in Deburr Technician's note from today, patient was noted to have Limited DNR (yes to intubation, but no CPR or defibrillation), I called patient's Adriana who requested chest compressions to be
done and therefore chest compressions were started, patient did have ROSC.
-This is patient's 3rd intubation this hospitalization
-Bicarb Drip
-Respiratory rate and tidal volume increased on ventilator
-3 pressors have been added
-Fentanyl and propofol drips as per firearms instructor
-Deburr Technician further discussed code status with patient's family and they agreed to have patient now be DNR
#MSSA in Sputum Culture
#Streptococcus salivarius bacteremia via BCx from 07/31/2024
#New splenic infarct
#Septic Shock
#Acute Renal Failure
#Hyperkalemia
#Lactic Acidosis
#Metabolic acidosis with increased anion gap due to severe CHRISS
#Non-Ischemic Myocardial Injury
- Per ID recommendations, now watch off antibiotics
- Per nephrology hold dialysis for now as there does not appear to be acute need from a volume, or electrolyte standpoint.
#Acute rectal bleeding in the setting of colorectal carcinoma/heparin infusion - now resolved
#Known history of colorectal Adenocarcinoma with possible lung mets
#Metastatic colorectal cancer with suspected lung metastasis (diagnosed via colonoscopy on 06/22/2024 with partially obstructing tumor seen in the rectum 4
cm from the anal verge, invasive low-grade colorectal adenocarcinoma)
#PET avid 2.2 cm right upper lobe nodule originally planned for robotic bronchoscopy on 08/03/2024 (will be deferred for now)
- s/p CTA without active bleeding source. No role for IR intervention. Source felt be related to known colon masses, although diverticular disease or AVMs possible.
- was previously Scheduled for lung biopsy as outpatient
- patient had not yet started chemotherapy
- GI following
- 1 unit of PRBC given on 08/19/24 given the drop in Hgb with associated tachycardia
#Persistent Atrial Fibrillation, with Rapid Ventricular Response
#Hypotension
-Outpatient, patient was on Toprol-XL 200 mg p.o. twice daily at one point.
-Off anticoagulation with active bleed episode; family aware of stroke risk
-Beta nirav was resumed in the form of Lopressor
-Amiodarone started as per cardiology
-Patient may need Midodrine
-Not felt to be present OAC candidate due to being high risk for recurrent GI bleeding due to rectal masses per GI.
-Cardiology follow-up after discharge for possible Watchman Device placement
-DuoNebs previously stopped due to tachycardia. Xopenex as needed started for secretion clearance.
#Acute HFpEF Exacerbation
#Toxic Metabolic Encephalopathy
-critical illness, recent sedation
-monitor mentation -- now more alert
-CTH negative 08/08
-s/p VSE 08/13; now on dysphagia diet. ongoing speech evals.
#Transaminitis secondary to hypoxic liver
#Dysphagia
-Continue speech therapy evaluations
#Constipation
- bowel regimen prn
#Essential Hypertension
- hold ENGINEERING LECTURER Olmesartan-HCTZ
- Continue low dose Lopressor as above
#Hyperlipidemia
- hold rosuvastatin
#Acute Thrombocytopenia
- HIT panel negative
Monitor
#Sacral/buttocks DTI
- fecal management system placement attempted, unable to stay in per RN
- wound care service following; suspect stage III or stage IV pressure injury. Consider surgical evaluation if symptoms do not improve
ID is also following
#History of HAN on auto CPAP
-Nocturnal BiPAP encouraged
#History of psoriasis previously on Enbrel
#History of hepatitis A
#History of COVID-19 (03/2024)
#Restrictive lung disease (suspected based on spirometry from 05/15/2021, however patient was coughing during testing and post-bronchodilator FVC was WNL at 84% predicted)
DVT Prophylaxis: SCDs - not a candidate for pharmacological prophylaxis due to GI bleed
Diet: Previously, per speech, VSE completed on 08/20/24, patient did great, no aspiration; could advance diet to regular solids/thin liquids
Code Status: DNR (see firearms instructor's note from 08/21/24)
Respiratory Arrest is a high risk encounter.
Anticipated Discharge: > 48 hours
Subjective/Interval History
-
Date of Service: August 21, 2024
Patient was seen and examined. He was moved to the ICU earlier (overnight), due to tachypnea and tachycardia. When he was seen initially he was able to speak and breathing okay, but later on he developed airway obstruction and could not breath,
following periods of asystole and events as described in the firearms instructor's note from today.
Objective Data
-
Labs:
Laboratory Results
08/21/24 08/21/24
01:30 04:05
WBC 8.2
Hgb 9.0 L
Hct 27.9 L
Plt Count 112 L
PT 16.9 H
INR 1.34
APTT 38.5 H
Sodium 136 135
Potassium 3.8 3.7
Chloride 106 104
Carbon Dioxide 20 L 21 L
BUN 61 H 61 H
Creatinine 3.9 H 3.8 H
Glucose 102 H 107 H
Calcium 7.1 L 7.1 L
Total Bilirubin 2.3 H 2.3 H
AST 55 52
ALT 39 38
Alkaline Phosphatase 188 H 181 H
Vital Signs:
Vital Signs
Temp Pulse Resp BP Pulse Ox
98.6 F 121 22 115/56 99
08/21/24 08:10 08/21/24 05:50 08/21/24 05:50 08/21/24 05:30 08/21/24 05:50
I&O
08/20/24 08/21/24 08/22/24
06:59 06:59 06:59
Intake Total 1050 / 1050 480 / 480
Output Total 700 / 700
Balance 1050 / 1050 -220 / -220
--- NOTE | 2024-08-21 08:47 | W.PN.ANESINT ---
Anesthesia Intubation Note
- Intubation Note
Intubation Note:
Diagnosis: Respiratory distress initially, with cough and stridor, then became unresponsive. Heart rate 40 wtih no palpable pulse. Unable to obtain pulse-ox reading.
Blade: MAC 4, Glidescope 4
Tube Size: 8.0 Hi-Lo
Depth: 24
Side Taped: Center with tube rios
Drugs Used: None
Grade View: 1
EtCO2 Present: None with initial intubation. Reintubated using Glidescope with + Et CO2.
Atraumatic: Yes
Attempts: 2
Insertion Start and Stop Time: 813, 819
SaO2 Pre: Unobtainable
SaO2 Post: 100%
Glidescope Used: Yes
Other Airway Adjustments:
Pre-Oxygenated: Being bagged on 100% O2 on Anesthesia arrival
Portable Chest X-Ray:
RSI: Yes
Suctioned: Yes
Bilateral Breath Sounds Confirmed: Only on Right initially, Bilateral after reintubation
Vent Settings:
Settings per __X_Attending Physician
[2024-08-21] MEDS: HYDROPHOR TOPICAL (09:00)
[2024-08-21] MEDS: LOPRESSOR PO ×2 (09:10→20:38)
[2024-08-21] MEDS: MUCINEX PO (09:11)
[2024-08-21] MEDS: SUBLIMAZE 50 MCG IV ×4 (09:16→15:51)
--- NOTE | 2024-08-21 09:18 | W.PN.CARDCBS ---
Addendum entered and electronically signed by Gabby Hannah PA-C 08/21/24 15:55:
Will add amiodarone gtt for adjunct rate control of rapid Afib in the setting of hypotension.
Original Note:
Today's Communication / Plan
-
Status post respiratory code and now intubated
Back in A-fib with relative rate control
Could consider amiodarone if heart rate control remains an issue
CODE STATUS being discussed this patient was no CPR but then this was reversed
Impression / Plan
-
Primary Assembly Loader: Dr. Hiren Vicente
Impression:
Status post respiratory code with hypoxemia and severe pauses 08/21/2024
VDRF 08/21/2024
MSOF (resp failure, CHF, liver failure, renal failure)
Recent diagnosis paroxysmal atrial fibrillation with recurrent AFib with RVR
splenic infarct
GI bleeding
Hypotension previously requiring pressors, weaned off 08/19/2024
CHRISS (likely as a consequence of hypotension, possibly from septic shock versus cardiogenic shock or combination of both), now on HD
Acute hypoxic respiratory failure requiring intubation 07/31/24, weaned from vent then re-intubated 08/15/2024, extubated 08/17/2024
Liver failure (likely as a consequence of hypotension, possibly from septic shock versus cardiogenic shock or combination of both)
Fever
Sepsis, s aureus PNA, possible S aureus bacteremia
Acute diastolic CHF
Colorectal cancer, suspected metastatic, diagnosed 06/22/2024, not yet started on therapy
Pulmonary nodule with concern for metastasis, scheduled for lung biopsy 08/03
Hypertension
Hyperlipidemia
Obstructive sleep apnea
Obesity
Edema
ECHO 07/31/24: Normal LV function. LVEF is 55-60%. No wall motion abnormality. Top normal right ventricular size with normal RV function. Mild AI and mild TR. Estimated pulmonary artery pressure of 38 mmHg
Plan:
Status post code 08/21/2024 and now intubated
Initially was no CPR and then decision was reversed
CODE STATUS being discussed
Remains in A-fib
Heart rate control has been poor and hypotension limiting AV kalin agents
Lopressor was increased to 25 mg p.o. twice daily on 08/20/2024
LFTs have resolved and could consider amiodarone if heart rate control remains an issue and
Continue hemodialysis for volume control
evidence of splenic infarct by imaging 08/06/24. He had bloody BM on IV heparin earlier in hospital stay. not felt to be present OAC candidate due to being high risk for recurrent GI bleeding due to rectal masses per GI. He is [id number] score of
1 (hypertension). once recovered, could consider candidacy for watchman.
Discussed with employment and claims aide at time of code
Critical care time 32 minutes so far
HPI:
64-year-old man with recently diagnosed colorectal cancer with possible lung metastasis and recent diagnosis of atrial fibrillation who presented with lightheadedness and dizziness after starting oral metoprolol as an outpatient and presented to
[facility] emergency department for further management. After being found to have CHRISS and anemia he was admitted for further management. Unfortunately developed increased work of breathing this morning, became tachycardic and was found to be
febrile. Did not clinically improve with BiPAP and he was subsequently intubated and transferred to the medical ICU for further management. Currently being treated with broad-spectrum antibiotics and requiring pressor support.
Seen in the outpatient cardiology office 07/26/24 and was in AF with a rapid ventricular rate of 130 bpm. At that visit he had yet to initiate Toprol-XL which was ordered by his primary care physician. At that office visit he agreed to initiate
Toprol-XL 25 mg daily for rate control with plan to defer recommendations regarding rhythm control until he was adequately anticoagulated (atrial fibrillation of unknown duration) and to allow for intermittent interruption of anticoagulation for
planned upcoming procedures regarding his recently diagnosed colorectal cancer with likely pulmonary metastases (bronchoscopy, port placement, colorectal surgery). Eliquis 5 mg twice daily was also initiated on 07/26/24..
Cardiology is consulted for possible heart failure as a cause of his respiratory decompensation. proBNP was mildly elevated (3210), it is possible there is some component of heart failure with preserved ejection fraction.
On presentation to the emergency department 07/30/24, he was in atrial fibrillation with reasonably controlled ventricular rate of 105 bpm. EKG of July 31, 2024 finds sinus rhythm at 77 bpm.
Progress Note - Assembly Loader
Subjective
Date of Service: August 21, 2024
Called to see patient after code 9. Patient received epinephrine and CPR after having severe pauses related to respiratory hypoxemia. Patient initially went into an SVT now is in A-fib. Now intubated.
Objective
Labs:
08/21/24 01:30
08/21/24 04:05
Labs
Hgb 9.0 g/dL (13.0-18.0) L 08/21/24 01:30
Hct 27.9 % (39.0-52.0) L 08/21/24 01:30
Plt Count 112 10^3/uL (130-400) L 08/21/24 01:30
PT 16.9 Sec (11.4-14.6) H 08/21/24 01:30
INR 1.34 08/21/24 01:30
APTT 38.5 Sec (23.4-35.0) H 08/21/24 01:30
Sodium 135 mmol/L (135-145) 08/21/24 04:05
Potassium 3.7 mmol/L (3.5-5.1) 08/21/24 04:05
BUN 61 mg/dl (9-20) H 08/21/24 04:05
Creatinine 3.8 mg/dL (0.7-1.3) H 08/21/24 04:05
Glucose 107 mg/dl (70-99) H 08/21/24 04:05
Troponins
08/21/24
01:30
Troponin I 0.285 H*
Vital Signs and I&O:
Vital Signs
Temp Pulse Resp BP Pulse Ox
98.6 F 118 42 118/47 100
08/21/24 08:10 08/21/24 09:08 08/21/24 09:08 08/21/24 09:08 08/21/24 09:08
Vital Signs
Temp Pulse Resp BP Pulse Ox
98.6 F 118 42 118/47 100
08/21/24 08:10 08/21/24 09:08 08/21/24 09:08 08/21/24 09:08 08/21/24 09:08
Intake & Output
08/19/24 08/20/24 08/21/24 08/22/24
06:59 06:59 06:59 06:59
Intake Total 1298.0 / 1298.0 1050 / 1050 480 / 480
Output Total 375 / 375 700 / 700
Balance 923.0 / 923.0 1050 / 1050 -220 / -220
Physical Exam
Physical Exam
General: Unresponsive
Neck: Supple, no JVD, HJR, carotids +2 B/L, no bruits bilaterally.
Heart: Non displaced PMI, irregular, no murmurs, No S3, S4, no rubs.
Lungs: Scattered rhonchi
Abdomen: Distended
Extremities: No clubbing, cyanosis or edema bilaterally.
Neuro: Unresponsive
--- NOTE | 2024-08-21 09:18 | W.PN.ID1 ---
Date of Service
Date of Service: August 21, 2024
Today's Communication
- note respiratory arrest this AM
- CXR prior to arrest no new infiltrates
Follow off of antibiotics - these were completed on 08/20
Assessment / Plan
S aureus (MSSA) Pneumonia - resolved
Strep salivarius bacteremia x 2 sets drawn at the same time - most likely contaminant
CHRISS on HD
Class III Obesity
Colorectal Adenocarcinoma - not yet on treatment
Psoriatic Arthritis - currently off of Enbrel since ~05/03
- note respiratory arrest this AM
- CXR prior to arrest no new infiltrates
- blood cultures x2 negative
- covid and influenza negative 08/15
- UA mild pyuria, urine culture negative
- no C diff toxin production at this time
- leukocytosis resolved
- Sputum C. albicans (no significance)
Follow off of antibiotics - these were completed on 08/20
����������������������������������������������������������
Chief Complaint
-: Fever and Other (shock)
Subjective / Review of Systems
remains afebrile
bp stable
had QA AUDITOR early this AM for stridor. moved back to ICU for closer monitoring. Had code this AM - DNR status reversed. Note 7 minutes before compressions started while decision being made.
Diffuse wheezing, overbreathing the vent notably
upward gaze preference
1 AM CXR - no infiltrates
Vital Signs / Physical Exam
Vital Signs
Vital Signs
Temp Pulse Resp BP Pulse Ox
98.6 F 118 42 118/47 100
08/21/24 08:10 08/21/24 09:08 08/21/24 09:08 08/21/24 09:08 08/21/24 09:08
Physical Exam
Constitutional: No Acute Distress and Chronically Ill
Cardiovascular: Regular Rate and S1/S2; Negative Murmur or Rub
Pulmonary: Clear and Symmetric; Negative Wheezes or Rales
Gastrointestinal: Soft, Non Tender, Non Distended and Normal Bowel Sounds
Skin: Warm and Dry; Negative Rash or Jaundice
Objective Data
Lab Data
Lab Results
08/21/24 01:30
08/21/24 04:05
PT 16.9 Sec (11.4-14.6) H 08/21/24 01:30
INR 1.34 08/21/24 01:30
APTT 38.5 Sec (23.4-35.0) H 08/21/24 01:30
Estimated Creat Clear 27 ml/min 08/21/24 04:05
Lactic Acid 1.7 mmol/L (0.7-2.0) 08/06/24 03:26
Total Bilirubin 2.3 mg/dl (0.2-1.3) H 08/21/24 04:05
AST 52 U/L (17-59) 08/21/24 04:05
ALT 38 U/L (0-50) 08/21/24 04:05
Alkaline Phosphatase 181 U/L (38-126) H 08/21/24 04:05
Most recent labs reviewed.
Micro Results:
08/15/24 04:30 Blood Culture - Final
Blood/Venous No Growth - Final Report
08/15/24 04:30 Blood Culture - Final
Blood/Venous No Growth - Final Report
08/17/24 10:00 Respiratory Culture - Final
Sputum Brianne albicans
Gram Stain - Final
08/16/24 11:25 Urine Culture - Final
Urine NO GROWTH
08/16/24 16:18 C. difficile GDH Antigen & Toxins - Final
Feces/Stool C. difficile antigen positive, toxin negative.
Clostridium difficile present, but toxin not detected.
Patient may be a carrier, colonized with nontoxinogenic
strain or the level of toxin in sample is below detection
limits. This information should be used in conjunction with
the patient's clinical history.
08/13/24 05:31 Salmonella/Shigella Culture - Final
Feces/Stool No Salmonella, Shigella, Aeromonas or Plesiomonas species
isolated.
Campylobacter Culture - Final
No Campylobacter species isolated.
Shiga Toxin Test - Final
No E. coli Shiga Toxin 1 or 2 detected.
Stool Leukocytes - Final
08/15/24 04:21 Influenza Types A & B (KHANG) - Final
Nasal Swab Negative for Influenza A & B, NAAT
Negative results must be combined with clinical observations
and patient history.
Nucleic Acid Amplification test (NAAT)performed on the
[employer] platform.
08/13/24 05:31 C. difficile GDH Antigen & Toxins - Final
Feces/Stool C. difficile antigen positive, toxin negative.
Clostridium difficile present, but toxin not detected.
Patient may be a carrier, colonized with nontoxinogenic
strain or the level of toxin in sample is below detection
limits. This information should be used in conjunction with
the patient's clinical history.
- Final
Negative for Norovirus GI and GII.
08/07/24 11:39 Blood Culture - Final
Blood/Venous No Growth - Final Report
08/07/24 11:27 Blood Culture - Final
Blood/Venous No Growth - Final Report
08/07/24 10:52 Respiratory Culture - Final
Sputum NO GROWTH
Gram Stain - Final
08/03/24 03:28 Blood Culture - Final
Blood/Venous No Growth - Final Report
08/03/24 03:41 Blood Culture - Final
Blood/Venous No Growth - Final Report
08/01/24 18:19 Blood Culture - Final
Blood/Venous No Growth - Final Report
08/01/24 15:36 Blood Culture - Final
Blood/Venous No Growth - Final Report
07/31/24 12:18 Respiratory Culture - Final
Endotracheal S aureus-Methicillin Sensitive
Gram Stain - Final
07/31/24 07:54 Blood Culture - Final
Blood/Venous Streptococcus salivarius
Gram Stain - Final
07/31/24 07:54 Blood Culture - Final
Blood/Venous Streptococcus salivarius
Gram Stain - Final
07/31/24 11:49 Legionella Urinary Antigen - Final
Urine Negative for Legionella pneumophila Serogroup 1 antigen.
A negative result does not rule out the possiblity of
Legionella infection due to other serogroups or species of
Legionella. Clinical correlation is recommended.
Streptococcus pneumoniae Antigen (M - Final
Negative for Streptococcus pneumoniae antigen.
A negative result does not exclude infection with
Streptococcus pneumoniae. Clinical correlation is
recommended.
07/31/24 12:18 Nasal Screen MRSA (PCR) - Final
Nose MRSA not detected - performed by PCR methodology.
07/31/24 08:10 Influenza Types A & B (KHANG) - Final
Nasal Swab Negative for Influenza A & B, NAAT
Negative results must be combined with clinical observations
and patient history.
Nucleic Acid Amplification test (NAAT)performed on the
[employer] platform.
08/04/24 CXR: Moderate pulmonary edema, without significant change.
Care Review
Plan reviewed with: Nurse (CODE events)
[2024-08-21] MEDS: NSS (PRESERVATIVE FREE) 10 ML IV ×2 (09:31→20:04)
[2024-08-21] MEDS: PROTONIX IV 40 MG IV ×2 (09:31→20:04)
--- NOTE | 2024-08-21 09:41 | W.PN.NEPH.PH ---
Today's Communication / Plan
-
With acute events, will hold dialysis this morning reevaluate later this afternoon
Assessment/Plan
-
64-year-old man with recently diagnosed colorectal cancer with possible lung metastasis and recent diagnosis of atrial fibrillation who presented with lightheadedness and dizziness after starting oral metoprolol as an outpatient and presented to
[place] emergency department. He presented in acute kidney injury admitted to the floors upgraded to the ICU for increased work of breathing ultimately intubated in the ICU with hyperkalemia.
Patient is critically ill on pressor support essentially anuric.
Positive blood cultures pending organism. Staph aureus sputum culture.
Renal consult for acute kidney injury and hyperkalemia
Impression.
Acute kidney injury and hyperkalemia secondary to septic shock.
Colorectal cancer newly diagnosed June 2024 with possible lung metastasis
Atrial fibrillation on oral anticoagulation
Bacteremia/sepsis
Plan.
Status post respiratory distress this morning intubated on low-dose pressor
Will hold dialysis for now as there does not appear to be acute need from a volume, or electrolyte standpoint.
.
is at the bedside discussed status with her.
Antibiotic.
Rate control per cardiology moderate hypotension recurrent.
Will reevaluate for a volume status later today
Place Alvarez catheter for critical I's and O's
-
-
Date of Service: August 21, 2024
CC / HPI / ROS
-
Chief Complaint:
Septic shock
History of Present Illness:
tolerated HD now TTS
Reintubated today
On low dose pressors
Review of Systems:.
Ventilator support
Labs
-
Labs:
WBC 8.2 10^3/uL (4.8-10.8) 08/21/24 01:30
RBC 3.01 10^6/uL (4.70-6.10) L 08/21/24 01:30
Hgb 9.0 g/dL (13.0-18.0) L 08/21/24 01:30
Hct 27.9 % (39.0-52.0) L 08/21/24 01:30
Plt Count 112 10^3/uL (130-400) L 08/21/24 01:30
Sodium 135 mmol/L (135-145) 08/21/24 04:05
Potassium 3.7 mmol/L (3.5-5.1) 08/21/24 04:05
Chloride 104 mmol/L (98-107) 08/21/24 04:05
Carbon Dioxide 21 mmol/L (22-30) L 08/21/24 04:05
BUN 61 mg/dl (9-20) H 08/21/24 04:05
Creatinine 3.8 mg/dL (0.7-1.3) H 08/21/24 04:05
eGFR 17.15 08/21/24 04:05
Glucose 107 mg/dl (70-99) H 08/21/24 04:05
Calcium 7.1 mg/dl (8.4-10.2) L 08/21/24 04:05
Phosphorus 5.5 mg/dl (2.5-4.5) H 08/21/24 01:30
Nai-S-Yakulztcbzt Pept 2850 pg/ml 08/06/24 03:26
Albumin 2.4 g/dl (3.5-5.0) L 08/21/24 04:05
Physical Exam
-
Vital Signs:
Vital Signs
Temp Pulse Resp BP Pulse Ox
98.6 F 118 42 118/47 100
08/21/24 08:10 08/21/24 09:08 08/21/24 09:08 08/21/24 09:08 08/21/24 09:08
Cardiovascular:: Irregular rate and rhythm
Respiratory:: Bilateral: Coarse
Lung Excursion:: Normal
Abdomen:: Nontender and Soft
Extremity Edema:: +1: Bilateral:
Alvarez Catheter: No
--- NOTE | 2024-08-21 09:49 | W.PN.UPDATE ---
Update Note
Progress Note Update
Dr. Covington was by patient's bedside as was called for respiratory distress-patient had intermittent inspiratory stridor and essentially normal air movement-anesthesia was called and prior to intubation the patient became hypoxemic, bradycardic and
then asystolic-the patient was a DNR and thus no CPR was initiated until was contacted [facility] through the code at which time she rescinded and asked for CPR which was subsequently immediately provided
The patient was intermittently asystolic, PEA arrest and received a total of 4 mg of epinephrine, CPR with end-tidal CO2 monitoring on the latter half of the code and 1 amp of bicarb-the patient sustained a sinus tachycardia/SVT with a blood
pressure after patient was intubated-initial intubation unsuccessful with subsequent intubation successful
Unclear but suspected anoxic time lapse of 5 to 10 minutes and thus possibility of anoxic encephalopathy discussed with
brought to the bedside and was appropriately grieving
After lengthy discussion with the she would not like further CPR, shocking but would like supportive care
Will continue to support on the ventilator, treat arrhythmias and pressor requirements with medications but no CPR or shocking
[2024-08-21 10:17] LABS: B.E. -12.5 mmol/L; O2 Saturation % 99.5 % (94-98); PCO2 36 mmHg (35-48); PO2 239 mmHg (83-108); pH 7.21 (7.35-7.45)
[2024-08-21 10:19] LABS: HCO3 14.4 mmol/L (21-28)
[2024-08-21] MEDS: SANTYL OINTMENT 1 APPLIC TOPICAL (10:25)
--- NOTE | 2024-08-21 11:30 | PTCARENOTE ---
Patient continues to not follow any commands. Full CHG bed bath completed. Patient had bowel movement, redressed wound on buttock/ after cleansing and applying santyl. Temp sensing bourgeois placed. Code status to be limited per rounds discussed
with , Adriana. Continue supportive care.
--- NOTE | 2024-08-21 11:45 | WOUNDNOTE ---
DOMINIQUE RN NOTE: Followed up today with patient via nurse Sulema. Reviewed last pictures taken of sacral ulcer with nurse. Improved slightly with use of Santyl, edwina nurse. Reviewed hospitalist's note, will consider surgical consult once patient
stable. Patient coded again this morning per nurse. Will continue same treatment and follow as needed.
[2024-08-21] MEDS: NEO-SYNEPHRINE 1% 260 MG IV ×2 (11:48→22:25)
[2024-08-21 11:52] LABS: Glucose - Point of Care 164 mg/dl (70-99)
--- NOTE | 2024-08-21 12:30 | W.PN.UPDATE ---
Update Note
Progress Note Update
Another conversation at the bedside with the -now she is unsure, wishes full code until neurologic status established
I will change CODE STATUS to full code
Neurology will be consulted if mental status does not improve in the next 24 hours-suspect will need detailed bedside neurologic examination, CT, possible MRI, EEG, etc.
Updated critical care nursing
Bedside evaluation also reveals patient overbreathing vent-we will increase rate and recheck ABG
--- NOTE | 2024-08-21 12:55 | CHAP ---
Msgr. Ceasar Pineda of [facility] in [place] gave Holy Communion to the patient's and gave the [employer] [place] to the patient.
--- NOTE | 2024-08-21 13:23 | CM ---
chart reviewed.
Spoke with nursing
respiratory arrest this am, intubated
patient full code
PLAN: CM to follow hospital progression/discharge planning
--- NOTE | 2024-08-21 13:42 | W.PN.UPDATE ---
Update Note
Progress Note Update
Patient now with some episodes of posturing
Decreased corneal reflexes and pupils sluggish
Reviewed with critical care nursing-recommend neurology evaluation-consult placed
--- NOTE | 2024-08-21 13:44 | PTCARENOTE ---
Ventilator was alarming, patient was HR in 140s. appeared to be posturing, fentanyl bolus administered, notified ham pumper, neurology consulted.
--- NOTE | 2024-08-21 15:00 | PTCARENOTE ---
Took patient down on monitor to CT scan of head. pressure did stop to drop, saturations were lower as well. Peter gtt maxed and returned patient to ICU. Started vasopressin and notified cellophane worker and cardiology.
[2024-08-21] MEDS: SODIUM BICARBONATE 50 MEQ IV ×2 (15:30→21:23)
[2024-08-21 15:39] LABS: B.E. -16.7 mmol/L; O2 Saturation % 93.6 % (94-98); PCO2 40 mmHg (35-48); PO2 80 mmHg (83-108)
[2024-08-21 15:42] LABS: HCO3 12.1 mmol/L (21-28); pH 7.09 (7.35-7.45)
--- NOTE | 2024-08-21 15:47 | W.PN.UPDATE ---
Update Note
Progress Note Update
Reevaluated patient at the bedside-increased respiratory rate-suspected acidosis
ABG with pH 7.0
Bicarb given
Bicarb drip added
Third pressor added-marginal blood pressures
Respiratory rate and tidal volume increased on ventilator
Prognosis unfortunately extremely poor
Updated as well as daughters at the bedside-readdressed CODE STATUS-they are now all in agreement to make him a DNR-no CPR, shocking-comfort a priority
Fentanyl and propofol drip initiated
Reviewed with critical care nursing and entire critical care staff
[2024-08-21] MEDS: LEVOPHED 258 MG IV (15:48)
[2024-08-21] MEDS: PITRESSIN 100 IV (15:50)
--- NOTE | 2024-08-21 16:00 | PTCARENOTE ---
CT result was reviewed by mobile pet groomer with family. Patient was made a DNR. Still required pressure support. Added levophed gtt. Patient continues to over-breathe the vent. Added fentanyl gtt as well as propofol. Repeat ABG sent, Bicarb push
administered followed by gtt. Cardiology consulted, started amio gtt for rate control. Pressors and sedation going into double lumen PICC. Amio infusing into PICC, bicarb gtt infusing into left midline. Will continue to turn and reposition
patient as well as do percussion therapy as ordered. Neurologist to order EEG for first thing in AM.
[2024-08-21] MEDS: SODIUM BICARBONATE 1150 MEQ IV (16:13)
[2024-08-21] MEDS: SUBLIMAZE 100 IV (16:18)
[2024-08-21] MEDS: CORDARONE 518 MG IV (16:28)
[2024-08-21 17:51] LABS: Glucose - Point of Care 166 mg/dl (70-99)
--- NOTE | 2024-08-21 19:13 | PTCARENOTE ---
called [facility], because of patient's comorbidities they will not be sending a sales representative girls' apparel out.
--- NOTE | 2024-08-21 20:00 | PTCARENOTE ---
Assumed care of pt from previous RN. Pt vented and sedated setting 30/550/5/100%, appearing to be tolerating well. Pt continues to be in Afib HR 105 with occasional PVS's. Diaphoretic at times. Pt temp 100.7, TELEVISION ENGINEERING TEACHER notified Ofirmev given. at bed
side.
[2024-08-21] MEDS: OFIRMEV 100 IV (20:03)
[2024-08-21 20:48] LABS: Blood Urea Nitrogen 65 mg/dl (9-20); Calcium 6.9 mg/dl (8.4-10.2); Estimated Creatinine Clearance 23 ml/min; Glucose 208 mg/dl (70-99)
[2024-08-21 21:11] LABS: Carbon Dioxide 13 mmol/L (22-30); Chloride 101 mmol/L (98-107); Potassium 4.6 mmol/L (3.5-5.1); Sodium 135 mmol/L (135-145)
--- NOTE | 2024-08-21 21:45 | PTCARENOTE ---
Pt labs resulting critical, DISTRICT PLANT ENGINEER made aware. CO 13, Rotary Swaging Machine Operator 4.5, Ca 6.9. IVF changed, Bicarb pushed (see MAR). True Ca 8.2.
[2024-08-22] VITALS (95 sets, daily range): BP systolic 66–138; BP diastolic 41–92; BMI 38.2
[2024-08-22] MEDS: PITRESSIN 100 IV ×3 (00:48→23:20)
[2024-08-22] MEDS: LEVOPHED 258 MG IV (01:49)
[2024-08-22] MEDS: DIPRIVAN 100 IV ×2 (01:49→18:40)
[2024-08-22] MEDS: OFIRMEV 100 IV ×3 (02:05→20:13)
[2024-08-22] MEDS: SUBLIMAZE 50 MCG IV ×3 (03:55→05:48)
[2024-08-22 04:08] LABS: B.E. -9.4 mmol/L; PCO2 20 mmHg (35-48); PO2 387 mmHg (83-108); pH 7.43 (7.35-7.45)
[2024-08-22 04:22] LABS: HCO3 13.3 mmol/L (21-28)
[2024-08-22] MEDS: SODIUM BICARBONATE 1150 MEQ IV ×3 (05:14→23:19)
[2024-08-22 05:24] LABS: Urine Albumin 4+ (Neg - Trace); Urine Bilirubin 1+ (Negative); Urine Character Clear (Clear); Urine Color Amber; Urine Glucose 1+ (Negative); Urine Ketone 1+ (Negative); Urine Leukocyte 2+ (Negative); Urine Nitrite Positive (Negative); Urine Occult Blood 4+ (Negative); Urine Urobilinogen 1+ (Neg - 1+)
[2024-08-22 05:26] LABS: % Basophils 0.6 % (0-2); % Eosinophils 0.4 % (0-6); % Immature Granulocytes 1.4 % (0-0.5); % Monocytes 10.1 % (1.7-9.3); % Neutrophils 71.5 % (42.2-75.2); Absolute Basophils 0.1 10^3/uL (0-0.2); Absolute Eosinophils 0.1 10^3/uL (0-0.7); Absolute Immature Granulocytes 0.2 10^3/uL (0-0.05); Absolute Lymphocytes 2.1 10^3/uL (1.2-3.4); Absolute Monocytes 1.3 10^3/uL (0.1-0.6); Absolute Neutrophils 9.2 10^3/uL (1.4-6.5); Hematocrit 28.9 % (39.0-52.0); Hemoglobin 8.9 g/dL (13.0-18.0); Mean Corp Hgb Conc. 30.8 g/dL (33.0-37.0); Mean Corpuscular Hgb 28.7 pg (27.0-31.0); Mean Corpuscular Volume 93.2 fL (80.0-94.0); Mean Platelet Volume 10.9 fL (7.4-10.4); Nucleated Red Blood Cells % 0 % (-); Platelet Count 101 10^3/uL (130-400); White Blood Cell Count 12.9 10^3/uL (4.8-10.8)
--- NOTE | 2024-08-22 05:30 | PTCARENOTE ---
Pt temp remained above 100.4, Ofirmev given. Alvarez output scant, NATURAL GAS PLANT SUPERVISOR aware. Wound care done. ET strap changed by respiratory this AM.
[2024-08-22 05:36] LABS: Urine Bacteria Many (Negative); Urine Red Blood Cell 30-40 /HPF (0-2); Urine White Cell 30-40 /HPF (0-5)
[2024-08-22] MEDS: ATIVAN 2 MG IV (06:00)
[2024-08-22 06:06] LABS: Lactic Acid 8.9 mmol/L (0.7-2.0)
[2024-08-22 06:07] LABS: ALT (SGPT) 72 U/L (0-50); AST (SGOT) 275 U/L (17-59); Albumin 2.6 g/dl (3.5-5.0); Alkaline Phosphatase 189 U/L (38-126); Blood Urea Nitrogen 65 mg/dl (9-20); Calcium 6.9 mg/dl (8.4-10.2); Carbon Dioxide 14 mmol/L (22-30); Chloride 100 mmol/L (98-107); Estimated Creatinine Clearance 20 ml/min; Glucose 172 mg/dl (70-99); Magnesium 1.9 mg/dl (1.6-2.3); Potassium 4.5 mmol/L (3.5-5.1); Sodium 137 mmol/L (135-145); Total Protein 5.6 g/dl (6.3-8.2); eGFR 12.05
--- NOTE | 2024-08-22 06:17 | PTCARENOTE ---
Pt at bedside, per pts arms 'moved up' prior to ventilator alarming. Vent alarming high pressure and ultimately low volumes. Bit down on ETT briefly. Pt desat to mid 80s, suctioned for minimal thick blood tinged sputum, pt bagged. I-FOLDER SEAMER AUTOMATIC
and respiratory called to bedside. Initially slight resistance with bagging. Breath sounds present/equal bilaterally, diminished. PRN fentanyl IVP given/gtt titrated, PRN ativan order received and administered. Resistance while bagging improved,
pulse ox 100%. ABG collected prior--7.43/20/387/13.3. Vent settings changed-- AC 26/550/60%/+5, previous rate = 30, previous FiO2 = 80%. Tolerating ventilator on current settings, pulse ox remains 100%.
[2024-08-22] MEDS: NSS (PRESERVATIVE FREE) 1 ML IV (06:20)
[2024-08-22] MEDS: NEO-SYNEPHRINE 1% 260 MG IV ×3 (06:29→23:20)
--- NOTE | 2024-08-22 06:30 | W.PN.UPDATE ---
Update Note
Progress Note Update
0600- Patient had episode of acute hypoxemia (sustained 70-80s%) and tachycardia, was taken off ventilator and bagged with ambu bag. Attempted suctioning, not much secretions. had noted some abnormal movement of arms, just prior to event,
also patient had seemed more tachypneic and tachycardic. Possible seizure like event, 2mg IV ativan given, oxygen saturations returned to >92%, patient was able to be placed on ventilator. PRN ativan added 2mg IV.
--- NOTE | 2024-08-22 06:44 | PTCARENOTE ---
Morning Lab results reported to BLADDER BLOWER, lactic 8.9.
[2024-08-22] MEDS: SODIUM BICARBONATE 50 MEQ IV (06:50)
[2024-08-22] MEDS: LOPRESSOR PO ×2 (07:21→21:19)
[2024-08-22] MEDS: NSS (PRESERVATIVE FREE) 10 ML IV ×2 (07:36→20:13)
[2024-08-22] MEDS: SANTYL OINTMENT 1 APPLIC TOPICAL (07:37)
[2024-08-22] MEDS: ZOSYN 50 IV ×3 (07:37→20:12)
[2024-08-22] MEDS: PROTONIX IV 40 MG IV ×2 (07:37→20:12)
--- NOTE | 2024-08-22 07:42 | W.PN.INTV ---
Today's Communication / Plan
Recommendations
Bicarb
Adjust ventilator
Wean FiO2
Continue pressors
Continue antibiotics
Neurologic evaluation and assessment for potential for meaningful recovery-if little chance for meaningful recovery the family is considering comfort/withdraw
Assessment
-
64-year-old male recently diagnosed with advanced colorectal carcinoma as well as a lung nodule that was supposed to be biopsied and ended up in the emergency room with dizziness and atrial fibrillation, renal failure and has had a lengthy
hospitalization including a couple intubations with doing well on the floor and had sudden onset shortness of breath came to the ICU where he had inspiratory stridor, difficulties breathing and PEA arrest-circular sawyer stone consulted for ventilator/status
post arrest/critical care management 08/21/2024.
Primary respiratory arrest leading to PEA cardiopulmonary arrest
Reintubated 08/21/2024
Upper airway obstruction suspected-? Mucous plug
Recent ventilator dependent respiratory failure from mucous plugging-first 07/31/2024 through 08/08/2024 and then again 08/15/2024 extubated 08/17/2024
Status post PEA arrest 08/21/2024
Anoxic encephalopathy suspected
Rvmsvi-hqwwjprfle-uevxoahnch 9.0
Metabolic acidosis
CHRISS-on dialysis
Recent C. difficile colitis
Conditions present prior to admission:
Metastatic colorectal cancer with suspected lung metastases-colonoscopy 06/22/2024 with partially obstructing tumor-invasive low-grade colorectal adenocarcinoma.
PET avid 2.2 cm right upper lobe nodule plan for robotic bronchoscopy 07/30/2024-deferred.
HAN.
Psoriasis.
Hepatitis A. A
Restrictive lung disease
Plan
Remains critically ill on 2 pressors and on a ventilator with some sedation for comfort
Ventilator settings reviewed and adjusted
Monitor airway pressures
Follow ABG
Not a spontaneous breathing trial candidate
Nebulizers if needed-currently not bronchospastic
Mucolytic's
Cardiology following-correspondence reviewed
Atrial fibrillation rate control
Considering amiodarone
Intravenous fluids-bicarbonate with severe acidosis
Phenylephrine if needed
No obvious aspiration-suspect mucous plugs initiated pulmonary distress and subsequent cardiopulmonary arrest
Follow temperature curve and WBCs
Observe off antibiotics for now
Monitor neurologic status
Clearly has brainstem function-overbreathing vent
Neurology evaluation
EEG 08/22/2024 with generalized slowing and burst suppression-sign of significant anoxic event
CT head 08/21/2024 with early signs of anoxic encephalopathy
Likely little chance of meaningful recovery
Monitor hemoglobin
Transfuse if needed
PPI continues
Nephrology following-reviewed with them
Hemodialysis per nephrology-on hold as patient may be withdrawn
DVT prophylaxis
GI prophylaxis while on the ventilator with hemodynamic instability-on PPI
Early nutrition
Early mobilization
Dr. Covington spoke with 08/21/2024 and updated on current clinical situation-told possibility of anoxic encephalopathy, she would not like further CPR, shocking, or coding but does want ongoing supportive care-we will respect her wishes
Dr. Covington spoke with and daughter on 08/22/2024-they are waiting to hear about potential for neurologic recovery and considering withdrawal of care
Critical care statement: A total of 45 minutes of critical care time was provided for this patient today. This includes management of unstable vital signs, evaluation of the patient at bedside, reviewing the patient's pertinent medical records
including radiographs, ventilator management, code management, pressor management, microbiology, laboratory evaluations, and discussion with primary team, consultants, pharmacy, nutrition, physical therapy, case management, charge nurse, critical
care nursing, and respiratory therapy.
Diagnostic data:
Chest x-ray 08/08/2024-some haziness at the bases and small bilateral pleural effusions
Chest x-ray 08/21/2024-stable position of right internal jugular catheter and a right PICC line, no infiltrates or pneumothorax
Lower extremity ultrasound 08/15/2024-no evidence for DVT
CT chest abdomen and pelvis 07/06/2024-irregular eccentric wall thickening involving the rectum highly concerning for rectal carcinoma, small pelvic lymph nodes, right upper lobe pulmonary nodule 2 cm
PET scan 07/19/2024-hypermetabolic solid pulmonary nodule right upper lobe with initial SUV 9.6 and delayed to 10.6, FDG avid mass upper rectum SUV 25.6
Subjective Dataa
Subjective Data
Date of Service:
Date of Service: August 22, 2024
Chief Complaint: Director Data Management Follow Up, Pulmonary Follow Up and Vent Management Follow Up
Subjective:
No change in his neurologic status, some decorticate posturing, no increase secretions, noncommunicative
Review of Systems
General: Unobtainable - Pat Unresp
Objective Data
Data Reviewed
Vital Signs / I&O / Oxygen:
Vital Signs
Temp Pulse Resp BP Pulse Ox
100.7 F H 97 26 112/45 100
08/22/24 04:05 08/22/24 06:30 08/22/24 06:30 08/22/24 06:30 08/22/24 06:38
Intake and Output
08/21/24 08/22/24 08/23/24
06:59 06:59 06:59
Intake Total 480 / 480 3038.6 / 3038.6
Output Total 700 / 700 559 / 559
Balance -220 / -220 2479.6 / 2479.6
SaO2 [CPAP] 98
SaO2 [A/C] 100
SaO2 100
Nasal Cannula flow liters per 4
minute
Physical Exam
General: Respiratory Distress (n) and Comfortable
HEENT: Normocephalic and Anicteric
Cardiovascular: Irregular Rhythm, Murmur (n), Rub (n) and Peripheral Edema (+1 lower extremity edema bilaterally, right anterior chest HD catheter, right upper extremity PICC, left upper extremity midline)
Respiratory: Clear, Wheeze (n), Crackles (n) and Rhonchi (n)
GI: Soft, Non Distended and Normal Bowel Sounds
Neurology: Other (Not alert, not oriented and not moving extremities)
Skin: Warm, Good Color, Cyanosis (n), Jaundice (y), Rash (n) and Bruising (n)
Labs/Micro/Reports
Lab Data
08/22/24 04:19
08/22/24 04:19
Laboratory Results
08/21/24 08/21/24 08/22/24
10:03 15:24 03:35
pH 7.21 L 7.09 L* 7.43
pCO2 36 40 20 L
pO2 239 H 80 L 387 H
HCO3 14.4 L* 12.1 L* 13.3 L*
O2 Delivery Level
Microbiology
08/15/24 04:30 Blood/Venous Blood Culture - Final
No Growth - Final Report
08/15/24 04:30 Blood/Venous Blood Culture - Final
No Growth - Final Report
08/17/24 10:00 Sputum Respiratory Culture - Final
Brianne albicans
08/17/24 10:00 Sputum Gram Stain - Final
--- NOTE | 2024-08-22 07:45 | PTCARENOTE ---
Received patient from operation shift supervisor. no changes from prior shift, Adriana remains at bedside. patient assessment as charted. not responsive, eyes are open with upwards gaze, sluggish pupillary response. Patient remains in an Afib rhythm, is
intubated, minimal sedation for ventilator dyssynchrony. Patient remains NPO. Alvarez catheter with minimal urinary output. All drips infusing into right double lumen PICC. Skin and wound doumentation as charted. will review orders.
--- NOTE | 2024-08-22 07:58 | PTCARENOTE ---
EEG in room to set up test.
--- NOTE | 2024-08-22 08:00 | W.PN.NEPH.PH ---
Today's Communication / Plan
-
Possible initiation of CRRT pending neurology evaluation
Maintain pressors to keep MAP greater than 60
Assessment/Plan
-
64-year-old man with recently diagnosed colorectal cancer with possible lung metastasis and recent diagnosis of atrial fibrillation who presented with lightheadedness and dizziness after starting oral metoprolol as an outpatient and presented to
[place] emergency department. He presented in acute kidney injury admitted to the floors upgraded to the ICU for increased work of breathing ultimately intubated in the ICU with hyperkalemia.
Patient is critically ill on pressor support essentially anuric.
Positive blood cultures pending organism. Staph aureus sputum culture.
Renal consult for acute kidney injury and hyperkalemia
Impression.
Acute kidney injury and hyperkalemia secondary to septic shock.
Colorectal cancer newly diagnosed June 2024 with possible lung metastasis
Atrial fibrillation on oral anticoagulation
Bacteremia/sepsis
Plan.
Status post respiratory distress intubated on multiple pressors: Following cardiovascular arrest yesterday
Prolonged downtime with strong suspicion for anoxic injury
Currently receiving EEG
Neurology to evaluate
If there seems to be low likelihood of recovery per neuro evaluation the withdrawal of support will likely be initiated
Discussed with
If however neurology thinks there may be a good chance of meaningful recovery I will have to implement CRRT to provide dialysis given hemodynamic instability
Will reevaluate for CRRT modality later this afternoon if full support is to be pursued
Patient with profound lactic acidosis likely contributing to hypotension
Place Alvarez catheter for critical I's and O's
Patient is critically ill on ventilator and on multiple pressor support
Discussed with ICU attending and nursing staff
Total Time Spent with Patient (in minutes): 32
-
-
Date of Service: August 22, 2024
CC / HPI / ROS
-
Chief Complaint:
Septic shock
History of Present Illness:
tolerated HD now TTS
Reintubated 08/21/2024 following cardiovascular arrest with likely anoxic insult
Hemodynamically labile on 3 pressor support
Review of Systems:.
Ventilator support
Poorly reactive and responsive
Alvarez with non oliguria
Labs
-
Labs:
WBC 12.9 10^3/uL (4.8-10.8) H 08/22/24 04:19
RBC 3.10 10^6/uL (4.70-6.10) L 08/22/24 04:19
Hgb 8.9 g/dL (13.0-18.0) L 08/22/24 04:19
Hct 28.9 % (39.0-52.0) L 08/22/24 04:19
Plt Count 101 10^3/uL (130-400) L 08/22/24 04:19
Sodium 137 mmol/L (135-145) 08/22/24 04:19
Potassium 4.5 mmol/L (3.5-5.1) 08/22/24 04:19
Chloride 100 mmol/L (98-107) 08/22/24 04:19
Carbon Dioxide 14 mmol/L (22-30) L* 08/22/24 04:19
BUN 65 mg/dl (9-20) H 08/22/24 04:19
Creatinine 5.1 mg/dL (0.7-1.3) H* 08/22/24 04:19
eGFR 12.05 08/22/24 04:19
Glucose 172 mg/dl (70-99) H 08/22/24 04:19
Calcium 6.9 mg/dl (8.4-10.2) L* 08/22/24 04:19
Phosphorus 5.5 mg/dl (2.5-4.5) H 08/21/24 01:30
Qtf-J-Nkgphzvnwnt Pept 2850 pg/ml 08/06/24 03:26
Albumin 2.6 g/dl (3.5-5.0) L 08/22/24 04:19
Physical Exam
-
Vital Signs:
Vital Signs
Temp Pulse Resp BP Pulse Ox
100.6 F H 97 26 112/45 100
08/22/24 07:15 08/22/24 06:30 08/22/24 06:30 08/22/24 06:30 08/22/24 06:38
Cardiovascular:: Irregular rate and rhythm
Respiratory:: Bilateral: Coarse
Lung Excursion:: Normal
Abdomen:: Nontender and Soft
Extremity Edema:: +1: Bilateral:
Alvarez Catheter: Yes
Other Findings::
GEN: Intubated and obtunded
--- NOTE | 2024-08-22 08:03 | W.PN.HOSP.TC ---
Today's Communication/Plan
-
Per neurology, there is no possibility for a meaningful recovery, as patient will never eat, speak, or get out of bed
Family have decided to switch patient to [facility] tomorrow
Assessment / Plan
Assessment / Plan
Physical Exam
General: Intubated
HEENT: Normocephalic and Atraumatic
Respiratory: Equal air entry bilaterally
Cardiac: Irregular Rhythm and S1/S2
GI: Soft and Nontender. Positive bowel sounds.
Musculoskeletal: No cyanosis. No edema
Neuro: Not alert, and not moving extremities
Psych: Calm
Assessment/Plan
Mr. Иван Redd is a 64-year-old man with a past medical history of recently diagnosed colorectal cancer, persistent atrial fibrillation, essential hypertension who presents to the ER with dizziness. Patient reports feeling unwell for the last
2 days. He was recently started on metoprolol and Eliquis for atrial fibrillation. Overnight admission patient developed acute respiratory failure in setting of high fever with finding MSSA in blood and sputum; development of renal failure
requiring CRRT.
#Acute Respiratory Failure requiring intubation - reintubated on 08/21/24 following inspiratory stridor and difficulty breathing
#Primary respiratory arrest -- suspected possibly from severe mucus plugging -- leading to PEA cardiopulmonary arrest on 08/22/24
#Suspected Early Anoxic Brain Injury as results of hypoxia from respiratory arrest
#Metabolic Acidosis
#Recent ventilator dependent respiratory failure from mucous plugging-first 07/31/2024 through 08/08/2024 and then again 08/15/2024 extubated 08/17/2024
-Status PEA Arrest with ROSC on 08/21/24 and then intubated - this is patient's 3rd intubation this hospitalization
-Bicarb Drip
-Respiratory rate and tidal volume increased on ventilator
-3 pressors were added 08/21/24
-Sedation drips as per staple shear operator
-EEG 08/22/2024 with generalized slowing and burst suppression-sign of significant anoxic event
-Per neurology, there is no possibility for a meaningful recovery as patient will never eat, speak, or get out of bed
#Shock possibly septic - possible aspiration - developing on 08/21/24
#MSSA in Sputum Culture
#Streptococcus salivarius bacteremia via BCx from 07/31/2024
#New splenic infarct
#Septic Shock
#Acute Renal Failure
#Hyperkalemia
#Lactic Acidosis
#Metabolic acidosis with increased anion gap due to severe CHRISS
#Non-Ischemic Myocardial Injury
- Per ID recommendations, now watch off antibiotics
- CRRT depending on prognosis from neurology standpoint, neurology mentioned there is no chance for meaningful recovery
- Continue Zosyn
#Acute rectal bleeding in the setting of colorectal carcinoma/heparin infusion - now resolved
#Known history of colorectal Adenocarcinoma with possible lung mets
#Metastatic colorectal cancer with suspected lung metastasis (diagnosed via colonoscopy on 06/22/2024 with partially obstructing tumor seen in the rectum 4
cm from the anal verge, invasive low-grade colorectal adenocarcinoma)
#PET avid 2.2 cm right upper lobe nodule originally planned for robotic bronchoscopy on 08/03/2024 (will be deferred for now)
- s/p CTA without active bleeding source. No role for IR intervention. Source felt be related to known colon masses, although diverticular disease or AVMs possible.
- was previously Scheduled for lung biopsy as outpatient
- patient had not yet started chemotherapy
- GI following
- 1 unit of PRBC given on 08/19/24 given the drop in Hgb with associated tachycardia
#Persistent Atrial Fibrillation, with Rapid Ventricular Response
#Hypotension
-Outpatient, patient was on Toprol-XL 200 mg p.o. twice daily at one point.
-Off anticoagulation with active bleed episode; family aware of stroke risk
-Beta nirav was previously resumed in the form of Lopressor
-Amiodarone started as per cardiology
-Patient may need Midodrine
-Not felt to be present OAC candidate due to being high risk for recurrent GI bleeding due to rectal masses per GI.
-Cardiology follow-up after discharge for possible Watchman Device placement
-DuoNebs previously stopped due to tachycardia. Xopenex as needed started for secretion clearance.
#Acute HFpEF Exacerbation
#Toxic Metabolic Encephalopathy
-critical illness, recent sedation
-monitor mentation -- now more alert
-CTH negative 08/08
-s/p VSE 08/13; now on dysphagia diet. ongoing speech evals.
#Transaminitis secondary to hypoxic liver
#Dysphagia
-Continue speech therapy evaluations
#Constipation
- bowel regimen prn
#Essential Hypertension
- hold ELECTRONIC TRAIN CONTROL TECHNICIAN Olmesartan-HCTZ
#Hyperlipidemia
- hold rosuvastatin
#Acute Thrombocytopenia
- HIT panel negative
Monitor
#Sacral/buttocks DTI
- fecal management system placement attempted, unable to stay in per RN
- wound care service following; suspect stage III or stage IV pressure injury. Consider surgical evaluation if symptoms do not improve
ID is also following
#History of HAN on auto CPAP
-Nocturnal BiPAP encouraged
#History of psoriasis previously on Enbrel
#History of hepatitis A
#History of COVID-19 (03/2024)
#Restrictive lung disease (suspected based on spirometry from 05/15/2021, however patient was coughing during testing and post-bronchodilator FVC was WNL at 84% predicted)
DVT Prophylaxis: SCDs - not a candidate for pharmacological prophylaxis due to GI bleed
Diet: Previously, per speech, VSE completed on 08/20/24, patient did great, no aspiration; could advance diet to regular solids/thin liquids
Code Status: DNR (see staple shear operator's note from 08/21/24 - Medical Fee Clerk further discussed code status with patient's family and they agreed to have patient now be DNR)
Intubation and shock is a high risk encounter.
I spoke with patient's daughter and spouse inside patient's room today.
Anticipated Discharge: > 48 hours
Subjective/Interval History
-
Date of Service: August 22, 2024
Patient was seen and examined. He remained intubated and sedated.
Objective Data
-
Labs:
Laboratory Results
08/21/24 08/22/24 08/22/24
20:06 03:35 04:19
WBC 12.9 H
Hgb 8.9 L
Hct 28.9 L
Plt Count 101 L
HCO3 13.3 L*
Sodium 135 137
Potassium 4.6 4.5
Chloride 101 100
Carbon Dioxide 13 L* 14 L*
BUN 65 H 65 H
Creatinine 4.5 H* 5.1 H*
Glucose 208 H 172 H
Calcium 6.9 L* 6.9 L*
Total Bilirubin 3.0 H
AST 275 H
ALT 72 H
Alkaline Phosphatase 189 H
Vital Signs:
Vital Signs
Temp Pulse Resp BP Pulse Ox
100.6 F H 97 26 112/45 100
08/22/24 07:15 08/22/24 06:30 08/22/24 06:30 08/22/24 06:30 08/22/24 07:59
I&O
08/21/24 08/22/24 08/23/24
06:59 06:59 06:59
Intake Total 480 / 480 3038.6 / 3218.6 410.0 / 410.0
Output Total 700 / 700 559 / 559 0 / 0
Balance -220 / -220 2479.6 / 2659.6 410.0 / 410.0
[2024-08-22] MEDS: HYDROPHOR 1 APPLIC TOPICAL (08:51)
[2024-08-22] MEDS: SUBLIMAZE 100 IV ×2 (09:05→23:19)
--- NOTE | 2024-08-22 09:09 | EEG.RPT ---
Electroencephalogram Report
Recording
Date of EE08/22/24
Type of EEG: Routine
Done with Video Recording: Yes
Patient Status: Inpatient
Recording Conditions: Other (coma)
Hyperventilation Performed: No
Photic Stimulation Performed: Yes
Report
History: PEA arrest yesterday, 5-10 minutes downtime. propofol was turned off overnight.
Background: burst suppression. the bursts contain generalized polymorphic theta lasting 1-5 seconds, and comprise ~50% of the record. There is no clear reactivity to external stimulation. no normal rhythms were seen
Sleep: none
focal/rhythmic/epileptiform: none
Seizures: none
Photic stim: no background change
Impression: burst suppression
Clinical Correlation: Severe generalized cerebral dysfunction due to anoxia, ischemia or trauma, consistent with history of PEA arrest. The patient's prognosis will be unresponsive wakefulness to minimally responsive state.
--- NOTE | 2024-08-22 09:38 | W.PN.CARDCBS ---
Today's Communication / Plan
-
Continue current meds for rate control of AFib
Impression / Plan
-
Primary Insurance Billing Clerk: Dr. Hiren Vicente
Impression:
Status post respiratory code with hypoxemia and severe pauses 08/21/2024
VDRF 08/21/2024
MSOF (resp failure, CHF, liver failure, renal failure)
Recent diagnosis paroxysmal atrial fibrillation with recurrent AFib with RVR
splenic infarct
GI bleeding
Hypotension previously requiring pressors, weaned off 08/19/2024
CHRISS (likely as a consequence of hypotension, possibly from septic shock versus cardiogenic shock or combination of both), now on HD
Acute hypoxic respiratory failure requiring intubation 07/31/24, weaned from vent then re-intubated 08/15/2024, extubated 08/17/2024
Liver failure (likely as a consequence of hypotension, possibly from septic shock versus cardiogenic shock or combination of both)
Fever
Sepsis, s aureus PNA, possible S aureus bacteremia
Acute diastolic CHF
Colorectal cancer, suspected metastatic, diagnosed 06/22/2024, not yet started on therapy
Pulmonary nodule with concern for metastasis, scheduled for lung biopsy 08/03
Hypertension
Hyperlipidemia
Obstructive sleep apnea
Obesity
Edema
ECHO 07/31/24: Normal LV function. LVEF is 55-60%. No wall motion abnormality. Top normal right ventricular size with normal RV function. Mild AI and mild TR. Estimated pulmonary artery pressure of 38 mmHg
Plan:
Status post code 08/21/2024 and now intubated
Ongoing GOC discussions
Remains in A-fib
Heart rates better controlled today on PO metoprolol and IV amiodarone - would continue for now
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 He had bloody BM on IV heparin earlier in hospital stay. not felt to be present OAC candidate due to being high risk for recurrent GI bleeding due to rectal masses per GI. He is [id number] score of
1 (hypertension).
Continue hemodialysis for volume control
Discussed with at bedside and nursing
HPI:
64-year-old man with recently diagnosed colorectal cancer with possible lung metastasis and recent diagnosis of atrial fibrillation who presented with lightheadedness and dizziness after starting oral metoprolol as an outpatient and presented to
[facility] emergency department for further management. After being found to have CHRISS and anemia he was admitted for further management. Unfortunately developed increased work of breathing this morning, became tachycardic and was found to be
febrile. Did not clinically improve with BiPAP and he was subsequently intubated and transferred to the medical ICU for further management. Currently being treated with broad-spectrum antibiotics and requiring pressor support.
Seen in the outpatient cardiology office 07/26/24 and was in AF with a rapid ventricular rate of 130 bpm. At that visit he had yet to initiate Toprol-XL which was ordered by his primary care physician. At that office visit he agreed to initiate
Toprol-XL 25 mg daily for rate control with plan to defer recommendations regarding rhythm control until he was adequately anticoagulated (atrial fibrillation of unknown duration) and to allow for intermittent interruption of anticoagulation for
planned upcoming procedures regarding his recently diagnosed colorectal cancer with likely pulmonary metastases (bronchoscopy, port placement, colorectal surgery). Eliquis 5 mg twice daily was also initiated on 07/26/24..
Cardiology is consulted for possible heart failure as a cause of his respiratory decompensation. proBNP was mildly elevated (3210), it is possible there is some component of heart failure with preserved ejection fraction.
On presentation to the emergency department 07/30/24, he was in atrial fibrillation with reasonably controlled ventricular rate of 105 bpm. EKG of July 31, 2024 finds sinus rhythm at 77 bpm.
Progress Note - Insurance Billing Clerk
Subjective
Date of Service: August 22, 2024
Remains intubated in ICU requiring pressor support. Not interactive or responsive today.
Objective
Labs:
08/22/24 04:19
08/22/24 04:19
Labs
Hgb 8.9 g/dL (13.0-18.0) L 08/22/24 04:19
Hct 28.9 % (39.0-52.0) L 08/22/24 04:19
Plt Count 101 10^3/uL (130-400) L 08/22/24 04:19
PT 16.9 Sec (11.4-14.6) H 08/21/24 01:30
INR 1.34 08/21/24 01:30
APTT 38.5 Sec (23.4-35.0) H 08/21/24 01:30
Sodium 137 mmol/L (135-145) 08/22/24 04:19
Potassium 4.5 mmol/L (3.5-5.1) 08/22/24 04:19
BUN 65 mg/dl (9-20) H 08/22/24 04:19
Creatinine 5.1 mg/dL (0.7-1.3) H* 08/22/24 04:19
Glucose 172 mg/dl (70-99) H 08/22/24 04:19
Troponins
08/21/24
01:30
Troponin I 0.285 H*
Vital Signs and I&O:
Vital Signs
Temp Pulse Resp BP Pulse Ox
100.6 F H 101 21 119/51 98
08/22/24 07:15 08/22/24 09:30 08/22/24 09:30 08/22/24 09:30 08/22/24 09:30
Vital Signs
Temp Pulse Resp BP Pulse Ox
100.6 F H 101 21 119/51 98
08/22/24 07:15 08/22/24 09:30 08/22/24 09:30 08/22/24 09:30 08/22/24 09:30
Intake & Output
08/20/24 08/21/24 08/22/24 08/23/24
06:59 06:59 06:59 06:59
Intake Total 1050 / 1050 480 / 480 3038.6 / 3218.6 582.6 / 582.6
Output Total 700 / 700 559 / 559 0 / 0
Balance 1050 / 1050 -220 / -220 2479.6 / 2659.6 582.6 / 582.6
Physical Exam
Physical Exam
Gen: NAD
HEENT: NC/AT, sclera anicteric
Neck: No JVD
CV: irregularly irregular
Lungs: Mechanically ventilated
Abd: S/ND
Ext: No LE edema
Skin: Warm, dry.
Neuro: No purposeful movements
--- NOTE | 2024-08-22 09:47 | W.PN.ID1 ---
Date of Service
Date of Service: August 22, 2024
Today's Communication
- agree with gildardo
- follow up neurology input
Prognosis guarded at best
Assessment / Plan
Shock possibly septic - possible aspiration
S aureus (MSSA) Pneumonia - resolved
Strep salivarius bacteremia x 2 sets drawn at the same time - most likely contaminant
CHRISS on HD
Class III Obesity
Colorectal Adenocarcinoma - not yet on treatment
Psoriatic Arthritis - currently off of Enbrel since ~05/03
- now on core Ts, fever is defined as over 101.0
- EEG 'Severe generalized cerebral dysfunction due to anoxia, ischemia or trauma, consistent with history of PEA arrest. The patient's prognosis will be unresponsive wakefulness to minimally responsive state'
- new leukocytosis noted
- note respiratory arrest 08/21 with possible anoxic injury
- CXR this AM most likely atelectasis; can recheck in the AM
- repeat sputum in progress
- repeat blood cultures x2 are no growth to date
- UA mild pyuria, progressed, urine culture in progress
- agree with fernien
- follow up neurology input
Prognosis guarded at best; patient is critically ill
����������������������������������������������������������
Chief Complaint
-: Pneumonia and Other (shock)
Subjective / Review of Systems
now on core Ts, fever is defined as over 101.0
now running hypotensive on pressors - norepi peaked at 14 mcg/min and now down to 5
possible seizure reported by staff by abnormal jerking of the arms; some episodes of posturing
Vital Signs / Physical Exam
Vital Signs
Vital Signs
Temp Pulse Resp BP Pulse Ox
100.6 F H 101 21 119/51 98
08/22/24 07:15 08/22/24 09:30 08/22/24 09:30 08/22/24 09:30 08/22/24 09:30
Physical Exam
Constitutional: No Acute Distress and Chronically Ill
Cardiovascular: Regular Rate and S1/S2; Negative Murmur or Rub
Pulmonary: Symmetric, Coarse and Non Labored; Negative Wheezes or Rales
Gastrointestinal: Soft, Non Tender, Distended, Decreased Bowel Sounds, No Rebound and No Guarding
Skin: Warm and Dry; Negative Rash or Jaundice
Neurological: Negative Awake
Objective Data
Lab Data
Lab Results
08/22/24 04:19
08/22/24 04:19
PT 16.9 Sec (11.4-14.6) H 08/21/24 01:30
INR 1.34 08/21/24 01:30
APTT 38.5 Sec (23.4-35.0) H 08/21/24 01:30
Estimated Creat Clear 20 ml/min 08/22/24 04:19
Lactic Acid 8.9 mmol/L (0.7-2.0) H* 08/22/24 04:19
Total Bilirubin 3.0 mg/dl (0.2-1.3) H 08/22/24 04:19
AST 275 U/L (17-59) H 08/22/24 04:19
ALT 72 U/L (0-50) H 08/22/24 04:19
Alkaline Phosphatase 189 U/L (38-126) H 08/22/24 04:19
Most recent labs reviewed.
Micro Results:
08/22/24 04:30 Urine Culture - Pending
Urine
08/22/24 04:31 Respiratory Culture - Pending
Sputum Gram Stain - Pending
08/22/24 04:27 Blood Culture - Pending
Blood/Venous
08/22/24 04:19 Blood Culture - Pending
Blood/Venous
08/15/24 04:30 Blood Culture - Final
Blood/Venous No Growth - Final Report
08/15/24 04:30 Blood Culture - Final
Blood/Venous No Growth - Final Report
08/17/24 10:00 Respiratory Culture - Final
Sputum Brianne albicans
Gram Stain - Final
08/16/24 11:25 Urine Culture - Final
Urine NO GROWTH
08/16/24 16:18 C. difficile GDH Antigen & Toxins - Final
Feces/Stool C. difficile antigen positive, toxin negative.
Clostridium difficile present, but toxin not detected.
Patient may be a carrier, colonized with nontoxinogenic
strain or the level of toxin in sample is below detection
limits. This information should be used in conjunction with
the patient's clinical history.
08/13/24 05:31 Salmonella/Shigella Culture - Final
Feces/Stool No Salmonella, Shigella, Aeromonas or Plesiomonas species
isolated.
Campylobacter Culture - Final
No Campylobacter species isolated.
Shiga Toxin Test - Final
No E. coli Shiga Toxin 1 or 2 detected.
Stool Leukocytes - Final
08/15/24 04:21 Influenza Types A & B (KHANG) - Final
Nasal Swab Negative for Influenza A & B, NAAT
Negative results must be combined with clinical observations
and patient history.
Nucleic Acid Amplification test (NAAT)performed on the
[employer] platform.
08/13/24 05:31 C. difficile GDH Antigen & Toxins - Final
Feces/Stool C. difficile antigen positive, toxin negative.
Clostridium difficile present, but toxin not detected.
Patient may be a carrier, colonized with nontoxinogenic
strain or the level of toxin in sample is below detection
limits. This information should be used in conjunction with
the patient's clinical history.
- Final
Negative for Norovirus GI and GII.
08/07/24 11:39 Blood Culture - Final
Blood/Venous No Growth - Final Report
08/07/24 11:27 Blood Culture - Final
Blood/Venous No Growth - Final Report
08/07/24 10:52 Respiratory Culture - Final
Sputum NO GROWTH
Gram Stain - Final
08/03/24 03:28 Blood Culture - Final
Blood/Venous No Growth - Final Report
08/03/24 03:41 Blood Culture - Final
Blood/Venous No Growth - Final Report
08/01/24 18:19 Blood Culture - Final
Blood/Venous No Growth - Final Report
08/01/24 15:36 Blood Culture - Final
Blood/Venous No Growth - Final Report
07/31/24 12:18 Respiratory Culture - Final
Endotracheal S aureus-Methicillin Sensitive
Gram Stain - Final
07/31/24 07:54 Blood Culture - Final
Blood/Venous Streptococcus salivarius
Gram Stain - Final
07/31/24 07:54 Blood Culture - Final
Blood/Venous Streptococcus salivarius
Gram Stain - Final
07/31/24 11:49 Legionella Urinary Antigen - Final
Urine Negative for Legionella pneumophila Serogroup 1 antigen.
A negative result does not rule out the possiblity of
Legionella infection due to other serogroups or species of
Legionella. Clinical correlation is recommended.
Streptococcus pneumoniae Antigen (M - Final
Negative for Streptococcus pneumoniae antigen.
A negative result does not exclude infection with
Streptococcus pneumoniae. Clinical correlation is
recommended.
07/31/24 12:18 Nasal Screen MRSA (PCR) - Final
Nose MRSA not detected - performed by PCR methodology.
07/31/24 08:10 Influenza Types A & B (KHANG) - Final
Nasal Swab Negative for Influenza A & B, NAAT
Negative results must be combined with clinical observations
and patient history.
Nucleic Acid Amplification test (NAAT)performed on the
[employer] platform.
08/04/24 CXR: Moderate pulmonary edema, without significant change.
[2024-08-22 10:37] LABS: COVID-19 Antigen Negative (Negative)
[2024-08-22] MEDS: CORDARONE 518 MG IV (10:39)
--- NOTE | 2024-08-22 11:46 | CON.NEURO ---
Neuro Assessment/Plan
Assessment
spoke with regarding the findings. CT head showing loss of differentiation between balderas/white matter indicating brain swelling; it is pretty bad before it will show up on CT head. EEG showing burst suppression with several seconds of slow
electrical activity, and several seconds of flat. These findings are not the result of propofol.
With these findings, I do not expect him to progress to brain based on what has already happened. Unfortunately, halfway outcome will be awake, eyes open, and unresponsive as he is now; or minimally responsive such as picking, scratching
movements, looking towards the direction of noises or family members, smiling, breathing on his own. There is no possibility for a meaningful recovery, he will never eat, speak, or get out of bed
Plan
advise de-escalating care
Consultation
Order
Date of Consultation: 08/22/24
Requesting Provider: Bandar Covington
Reason for Consult: anoxic brain injury
Subjective/Objective
Subjective Data
Date of Service: August 22, 2024
He is a 64 year old man, with metastatic colorectal cancer, admitted with lengthy hospital stay involving multiple intubations, had a PEA arrest yesterday, 5-10 minutes downtime. intubated afterwards. remains intubated and unresponsive. Neurology
asked to assist in prognosis. propofol was turned off overnight.
Objective Data
Vital Signs
Temp Pulse Resp BP Pulse Ox
38.1 C H 101 21 119/51 100
08/22/24 11:08 08/22/24 09:30 08/22/24 09:30 08/22/24 09:30 08/22/24 11:34
Lab Results
08/22/24 04:19
08/22/24 04:19
PT 16.9 Sec (11.4-14.6) H 08/21/24 01:30
INR 1.34 08/21/24 01:30
APTT 38.5 Sec (23.4-35.0) H 08/21/24 01:30
Sodium 137 mmol/L (135-145) 08/22/24 04:19
Potassium 4.5 mmol/L (3.5-5.1) 08/22/24 04:19
BUN 65 mg/dl (9-20) H 08/22/24 04:19
Glucose 172 mg/dl (70-99) H 08/22/24 04:19
Calcium 6.9 mg/dl (8.4-10.2) L* 08/22/24 04:19
Phosphorus 5.5 mg/dl (2.5-4.5) H 08/21/24 01:30
Xqv-M-Qtdvojkclwz Pept 2850 pg/ml 08/06/24 03:26
Vitamin B12 601 pg/ml (239-931) 07/30/24 16:22
Patient Allergies
No Known Allergies Allergy (Verified 07/30/24 16:02)
Physical Exam
-
Awake, eyes open
unresponsive to noxious stimuli
no corneal reflex, no cough
+overbreathing the vent
Data Reviewed
-
Total Time Spent with Patient (in minutes): 35
Medications
-
Active Medications
Generic Name Dose Route Start Last Admin
Trade Name Freq PRN Reason Stop Dose Admin
Acetaminophen 650 mg 08/01/24 09:48 08/01/24 11:06
Acetaminophen (Oral Solution) 650 Mg/20.3 Ml Cup TUBE 08/29/24 09:47 650 mg
Q6HPRN PRN Administration
Fever and/or mild pain
Bisacodyl 10 mg 08/04/24 22:04
Bisacodyl 10 Mg Rectal Suppository RECTAL 09/01/24 22:03
DAILYPRN PRN
constipation
Collagenase 0 applic 08/16/24 08:00 08/22/24 07:37
Collagenase Ointment 2.5 Gram Jar TOPICAL 03/06/25 07:59 1 applic
DAILY ZEINA Administration
Dextrose 12.5 grams 07/31/24 22:00 08/02/24 06:10
Dextrose 50% (0.5 Grams/Ml) 50 Ml Syringe IV 08/28/24 21:59 12.5 grams
[id number] PRN Administration
hypoglycemia
Protocol
Emollient Ointment 0 applic 08/16/24 08:00 08/22/24 08:51
Petrolatum/Mineral Oil (Hydrophor) Oint 100 Gram TOPICAL 09/13/24 07:59 1 applic
DAILY ZEINA Administration
Fentanyl Citrate 50 mcg 08/21/24 09:00 08/22/24 05:48
Fentanyl (50 Mcg/Ml) 100 Mcg/2 Ml Ampul IV 09/04/24 08:59 50 mcg
[id number] PRN Administration
see protocol
Protocol
Glucagon 1 mg 07/31/24 22:00
Glucagon 1 Mg Vial IM 08/28/24 21:59
PRN PRN
hypoglycemia - no IV access
Protocol
Phenylephrine HCl 100 mg/ 260 mls @ 0 mls/hr 08/21/24 10:00 08/22/24 06:29
Sodium Chloride IV 260 mls
PER PROTOCOL ZEINA Administration
Protocol
Per Protocol
Vasopressin 20 units in 100 mls @ 0 mls/hr 08/21/24 15:15 08/22/24 00:48
Pitressin IV 100 mls
PER PROTOCOL ZEINA Administration
Protocol
Per Protocol
Norepinephrine Bitartrate 8 mg 258 mls @ 0 mls/hr 08/21/24 15:45 08/22/24 01:49
/ Sodium Chloride IV 258 mls
PER PROTOCOL ZEINA Administration
Protocol
Per Protocol
Fentanyl Citrate 1,000 mcg in 100 mls @ 0 mls/hr 08/21/24 16:00 08/22/24 09:05
Sublimaze IV 100 mls
PER PROTOCOL ZEINA Administration
Protocol
Per Protocol
Propofol 1,000,000 mcg in 100 mls @ 0 mls/hr 08/21/24 16:00 08/22/24 01:49
Diprivan IV 100 mls
PER PROTOCOL ZEINA Administration
Protocol
Per Protocol
Amiodarone HCl 900 mg/ 518 mls @ 0 mls/hr 08/21/24 16:00 08/22/24 10:39
Dextrose/Water IV 518 mls
PER PROTOCOL ZEINA Administration
Protocol
Per Protocol
Acetaminophen 1,000 mg in 100 mls @ 400 mls/hr 08/21/24 19:36 08/22/24 11:42
Ofirmev IV 08/22/24 19:35 100 mls
Q6HPRN PRN Administration
fever>100.3/mild pain
Protocol
Piperacillin Sod/Tazobactam Sod 2.25 grams in 50 mls @ 100 mls/hr 08/22/24 08:00 08/22/24 07:37
Zosyn IV 50 mls
Q6H ZEINA Administration
Sodium Bicarbonate 150 meq/ 1,150 mls @ 100 mls/hr 08/22/24 12:00
Sterile Water IV 08/23/24 11:59
.[id number] ZEINA
Levalbuterol HCl 1.25 mg 08/19/24 08:56 08/21/24 13:28
Levalbuterol 1.25 Mg/3 Ml Ampul INH 1.25 mg
R Q6HPRN PRN Administration
SOB,COUGH,WHEEZE
Protocol
Lorazepam 2 mg 08/22/24 05:56
Lorazepam 2 Mg/Ml Vial IV 09/19/24 05:55
Q4HPRN PRN
agitation/seizure
Metoprolol Tartrate 5 mg 08/09/24 06:02 08/18/24 12:19
Metoprolol 5 Mg/5 Ml Vial IV 09/06/24 06:01 5 mg
Q4HPRN PRN Administration
HR > 120
Metoprolol Tartrate 25 mg 08/20/24 20:00 08/22/24 07:21
Metoprolol 25 Mg Regular Release Tablet PO 09/17/24 19:59 Not Given
BID ZEINA
Pantoprazole Sodium 40 mg 08/16/24 20:00 08/22/24 07:37
Pantoprazole Sodium 40 Mg/10 Ml Vial IV 09/13/24 19:59 40 mg
BID ZEINA Administration
Polyethylene Glycol 17 grams 08/09/24 11:08
Polyethylene Glycol Powder 17 Grams Packet TUBE 09/06/24 11:07
BIDPRN PRN
CONSTIPATION
Polyethylene Glycol 17 grams 08/16/24 08:00 08/22/24 07:21
Polyethylene Glycol Powder 17 Grams Packet TUBE 09/13/24 07:59 Not Given
DAILY ZEINA
Rosuvastatin Calcium 10 mg 08/01/24 12:21 08/02/24 21:18
Rosuvastatin (Crestor) 10 Mg Tablet TUBE 08/27/24 21:59 10 mg
HS ZEINA Administration
Sodium Chloride 0 flush 07/30/24 21:00
Sodium Chloride 0.9% (Flush) Syringe IV 08/27/24 20:59
PER PROTOCOL ZEINA
Sodium Chloride 10 ml 08/16/24 10:19 08/22/24 07:36
Sodium Chloride 0.9% (Preservative Free) 10 Ml Vial IV 09/13/24 07:59 10 ml
BID ZEINA Administration
Sodium Chloride 0.5 ml 08/19/24 09:00
Nss (Pf) 10 Ml Vial For Ativan 1 Mg Dose IV 09/16/24 08:59
Q4HPRN PRN
IV LORAZEPAM DILUTION
Sodium Chloride 1 ml 08/22/24 06:22
Nss (Pf) 10 Ml Vial For Ativan 2 Mg Dose IV 09/19/24 06:21
Q4HPRN PRN
IV LORAZEPAM DILUTION
Home Medications
�Medication �Instructions �Recorded
olmesartan 40 1 tab PO HS Blood Pressure 06/22/24
mg-hydrochlorothiazide 12.5 mg
tablet
rosuvastatin 10 mg tablet 10 mg PO HS High Cholesterol 06/22/24
apixaban 5 mg tablet (Eliquis) 5 mg PO BID Blood Clot 07/30/24
Prevention/Tx
lorazepam 1 mg tablet 1 mg PO HSPRN PRN sleep 07/30/24
metoprolol succinate 25 mg 25 mg PO HS Blood Pressure 07/30/24
tablet,extended release 24 hr
[2024-08-22 12:13] LABS: Glucose - Point of Care 195 mg/dl (70-99)
--- NOTE | 2024-08-22 12:43 | PTCARENOTE ---
Family spoke with neurologist regarding EEG and CT scan results. They are leaning towards comfort care as patient would probably not make a meaningful recovery per physician. Continued to provide emotional support to family, ( and daughter).
--- NOTE | 2024-08-22 16:50 | PTCARENOTE ---
family would like comfort care and to withdrawal tomorrow, asked for last rights from the [employer], contacted pastoral care. emotional support provided. ongoing supportive care.
[2024-08-22 23:29] LABS: Glucose - Point of Care 129 mg/dl (70-99)
[2024-08-23] VITALS (54 sets, daily range): BP systolic 68–126; BP diastolic 32–79; BMI 38.5
--- NOTE | 2024-08-23 00:04 | PTCARENOTE ---
Pt received at 19:00, at bedside. Unresponsive, pupils 3mm/sluggish, no corneal reflex, no cough, intermittent gag. #8 ETT, 26cm @ lip. AC 26/550/40%/+5. Breath sounds diminished/coarse t/o. Scant blood tinged secretions via ETT. Afib,
continues on amio gtt. Peter, levo, vaso gtts to maintain SBP >90. DP pulses present with doppler, radial palpable. Bowel sounds hypoactive, no BM noted at this time. Alvarez with minimal output, zion. Safe environment maintained, pt repositioned.
[2024-08-23] MEDS: ZOSYN 50 IV ×2 (02:05→07:53)
[2024-08-23] MEDS: OFIRMEV 100 IV (02:15)
[2024-08-23 03:42] LABS: Glucose - Point of Care 97 mg/dl (70-99)
[2024-08-23 04:18] LABS: Hematocrit 25.9 % (39.0-52.0); Hemoglobin 8.6 g/dL (13.0-18.0); Mean Corp Hgb Conc. 33.2 g/dL (33.0-37.0); Mean Corpuscular Hgb 29.7 pg (27.0-31.0); Mean Corpuscular Volume 89.3 fL (80.0-94.0); Mean Platelet Volume 11.5 fL (7.4-10.4); Platelet Count 102 10^3/uL (130-400); Red Cell Dist. Width 22.7 % (11.5-14.5)
[2024-08-23 04:21] LABS: B.E. -6.9 mmol/L; O2 Saturation % 99.7 % (94-98); PCO2 21 mmHg (35-48); PO2 137 mmHg (83-108); pH 7.47 (7.35-7.45)
[2024-08-23 04:26] LABS: HCO3 15.3 mmol/L (21-28)
[2024-08-23 04:46] LABS: Blood Urea Nitrogen 77 mg/dl (9-20); Calcium 6.4 mg/dl (8.4-10.2); Carbon Dioxide 19 mmol/L (22-30); Chloride 98 mmol/L (98-107); Estimated Creatinine Clearance 17 ml/min; Glucose 103 mg/dl (70-99); Potassium 4.7 mmol/L (3.5-5.1); Sodium 138 mmol/L (135-145); eGFR 10.11
[2024-08-23] MEDS: SODIUM BICARBONATE 50 MEQ IV (05:07)
[2024-08-23] MEDS: DIPRIVAN 100 IV (05:48)
[2024-08-23] MEDS: CALCIUM GLUCONATE 130 MG IV (06:10)
[2024-08-23] MEDS: NEO-SYNEPHRINE 1% 260 MG IV (07:23)
--- NOTE | 2024-08-23 07:30 | W.PN.INTV ---
Today's Communication / Plan
Recommendations
Continue pressors
Comfort a priority
Neurology to see-family would like to hear 1 more time from neurology that there is no chance for meaningful recovery
Patient a DNR-we may withdraw
[facility] has been notified-not a candidate
Assessment
-
64-year-old male recently diagnosed with advanced colorectal carcinoma as well as a lung nodule that was supposed to be biopsied and ended up in the emergency room with dizziness and atrial fibrillation, renal failure and has had a lengthy
hospitalization including a couple intubations with doing well on the floor and had sudden onset shortness of breath came to the ICU where he had inspiratory stridor, difficulties breathing and PEA arrest-rn hospice consulted for ventilator/status
post arrest/critical care management 08/21/2024.
Primary respiratory arrest leading to PEA cardiopulmonary arrest
Reintubated 08/21/2024
Upper airway obstruction suspected-? Mucous plug
Recent ventilator dependent respiratory failure from mucous plugging-first 07/31/2024 through 08/08/2024 and then again 08/15/2024 extubated 08/17/2024
Status post PEA arrest 08/21/2024
Anoxic encephalopathy suspected
Qsbfea-vmopforiol-cvlpwfsuzd 9.0
Metabolic acidosis
CHRISS-on dialysis
Recent C. difficile colitis
Conditions present prior to admission:
Metastatic colorectal cancer with suspected lung metastases-colonoscopy 06/22/2024 with partially obstructing tumor-invasive low-grade colorectal adenocarcinoma.
PET avid 2.2 cm right upper lobe nodule plan for robotic bronchoscopy 07/30/2024-deferred.
HAN.
Psoriasis.
Hepatitis A. A
Restrictive lung disease
Plan
Remains critically ill on 3 pressors and on a ventilator with some sedation for comfort
Ventilator settings reviewed and adjusted
Monitor airway pressures
Follow occasional ABG
Not a spontaneous breathing trial candidate
Nebulizers if needed-currently not bronchospastic
Mucolytic's
Cardiology following-correspondence reviewed
Atrial fibrillation rate control
Amiodarone as needed
Intravenous fluids-bicarbonate with severe acidosis
Pressors as needed-currently on 3-attempt to wean
No obvious aspiration-suspect mucous plugs initiated pulmonary distress and subsequent cardiopulmonary arrest
Follow temperature curve and WBCs
Observe off antibiotics for now
Monitor neurologic status
Clearly has brainstem function-overbreathing vent
Neurology evaluation ongoing-reviewed with them
EEG 08/22/2024 with generalized slowing and burst suppression-sign of significant anoxic event
CT head 08/21/2024 with early signs of anoxic encephalopathy
Likely little chance of meaningful recovery
Monitor hemoglobin
Transfuse if needed
PPI continues
Nephrology following-reviewed with them
Hemodialysis per nephrology-on hold as patient may be withdrawn
DVT prophylaxis
GI prophylaxis while on the ventilator with hemodynamic instability-on PPI
Early nutrition
Early mobilization
Dr. Covington spoke with 08/21/2024 and updated on current clinical situation-told possibility of anoxic encephalopathy, she would not like further CPR, shocking, or coding but does want ongoing supportive care-we will respect her wishes
Dr. Covington spoke with and daughter on 08/22/2024-they are waiting to hear about potential for neurologic recovery and considering withdrawal of care
Dr. Covington spoke with and daughter again extensively on 08/23/2024-they are leaning towards comfort/withdrawal/hospice-waiting to hear from neurology 1 more time that there is little chance for meaningful recovery
Critical care statement: A total of 43 minutes of critical care time was provided for this patient today. This includes management of unstable vital signs, evaluation of the patient at bedside, reviewing the patient's pertinent medical records
including radiographs, ventilator management, code management, pressor management, microbiology, laboratory evaluations, and discussion with primary team, consultants, pharmacy, nutrition, physical therapy, case management, charge nurse, critical
care nursing, and respiratory therapy.
Diagnostic data:
Chest x-ray 08/08/2024-some haziness at the bases and small bilateral pleural effusions
Chest x-ray 08/21/2024-stable position of right internal jugular catheter and a right PICC line, no infiltrates or pneumothorax
Lower extremity ultrasound 08/15/2024-no evidence for DVT
CT chest abdomen and pelvis 07/06/2024-irregular eccentric wall thickening involving the rectum highly concerning for rectal carcinoma, small pelvic lymph nodes, right upper lobe pulmonary nodule 2 cm
PET scan 07/19/2024-hypermetabolic solid pulmonary nodule right upper lobe with initial SUV 9.6 and delayed to 10.6, FDG avid mass upper rectum SUV 25.6
Subjective Dataa
Subjective Data
Date of Service:
Date of Service: August 23, 2024
Chief Complaint: Biomass Technician Follow Up, Pulmonary Follow Up and Vent Management Follow Up
Subjective:
No changes neurologically, stable on the ventilator, no increase secretions, still on 3 pressors
Review of Systems
General: Unobtainable - Pat Unresp
Objective Data
Data Reviewed
Vital Signs / I&O / Oxygen:
Vital Signs
Temp Pulse Resp BP Pulse Ox
101.7 F H 76 21 122/52 100
08/23/24 03:31 08/23/24 05:20 08/23/24 05:20 08/23/24 05:15 08/23/24 05:51
Intake and Output
08/22/24 08/23/24 08/24/24
06:59 06:59 06:59
Intake Total 3038.6 / 3218.6 4426.9 / 4426.9
Output Total 559 / 559 60 / 60
Balance 2479.6 / 2659.6 4366.9 / 4366.9
SaO2 [CPAP] 98
SaO2 [A/C] 100
SaO2 100
Nasal Cannula flow liters per 4
minute
Physical Exam
General: Respiratory Distress (n) and Comfortable
HEENT: Normocephalic and Anicteric
Cardiovascular: Irregular Rhythm, Murmur (n), Rub (n) and Peripheral Edema (+1 lower extremity edema bilaterally, right anterior chest HD catheter, right upper extremity PICC, left upper extremity midline)
Respiratory: Clear, Wheeze (n), Crackles (n) and Rhonchi (n)
GI: Soft, Non Distended and Normal Bowel Sounds
Neurology: Other (Not alert, not oriented and not moving extremities)
Skin: Warm, Good Color, Cyanosis (n), Jaundice (y), Rash (n) and Bruising (n)
Labs/Micro/Reports
Lab Data
08/23/24 04:01
08/23/24 04:01
Laboratory Results
08/23/24
03:47
pH 7.47 H
pCO2 21 L
pO2 137 H
HCO3 15.3 L*
O2 Delivery Level
Microbiology
08/22/24 04:27 Blood/Venous Blood Culture - Preliminary
No Growth in 24 hours- Final report to follow
08/22/24 04:19 Blood/Venous Blood Culture - Preliminary
No Growth in 24 hours- Final report to follow
08/22/24 04:31 Sputum Gram Stain - Preliminary
08/22/24 10:11 Nasal Swab Influenza Types A & B (KHANG) - Final
Negative for Influenza A & B, NAAT
Negative results must be combined with clinical observations
and patient history.
Nucleic Acid Amplification test (NAAT)performed on the
[employer] platform.
08/15/24 04:30 Blood/Venous Blood Culture - Final
No Growth - Final Report
08/15/24 04:30 Blood/Venous Blood Culture - Final
No Growth - Final Report
[2024-08-23] MEDS: LOPRESSOR PO (07:51)
[2024-08-23] MEDS: PROTONIX IV 40 MG IV (07:52)
[2024-08-23] MEDS: SANTYL OINTMENT 1 APPLIC TOPICAL (07:52)
[2024-08-23] MEDS: NSS (PRESERVATIVE FREE) 10 ML IV (07:52)
[2024-08-23] MEDS: HYDROPHOR 1 APPLIC TOPICAL (07:53)
--- NOTE | 2024-08-23 08:30 | PTCARENOTE ---
Rec'd care of patient at 0700. Patient intubated and sedated. +Gag/corneal/cough reflexes. Pupils equal and reactive; sluggish +4mm. NSR on tele. Amio turned off overnight. +2 anasarca. +Doppler pulses. #8 ett , 26cm @ the lip. A/C 26/550/5/40%.
Lung sounds diminished throughout. Blood tinged secretions suctioned from ett. Q4hr percussion. Hypo BS. No BM. Alvarez in place for critical I/O. Scant output. Fent/Prop/Levo/Vaso/Peter infusing through RDL PICC. Bicarb gtt infusing through left
midline.
--- NOTE | 2024-08-23 08:40 | W.PN.HOSP.TC ---
Today's Communication/Plan
-
Patient remains intubated, continue antibiotics, pressors
Per rotary adjuster, family would like to withdraw care around 3 PM
Assessment / Plan
Assessment / Plan
Physical Exam
General: Intubated
HEENT: Normocephalic and Atraumatic
Respiratory: Equal air entry bilaterally
Cardiac: S1/S2. Regular Rhythm
GI: Soft and Nontender. Positive bowel sounds.
Musculoskeletal: No cyanosis. No edema
Neuro: Not alert, and not moving extremities
Psych: Calm
Assessment/Plan
Mr. Иван Redd is a 64-year-old man with a past medical history of recently diagnosed colorectal cancer, persistent atrial fibrillation, essential hypertension who presents to the ER with dizziness. Patient reports feeling unwell for the last
2 days. He was recently started on metoprolol and Eliquis for atrial fibrillation. Overnight admission patient developed acute respiratory failure in setting of high fever with finding MSSA in blood and sputum; development of renal failure
requiring CRRT.
#Acute Respiratory Failure requiring intubation - reintubated on 08/21/24 following inspiratory stridor and difficulty breathing
#Primary respiratory arrest -- suspected possibly from severe mucus plugging -- leading to PEA cardiopulmonary arrest on 08/22/24
#Suspected Early Anoxic Brain Injury as results of hypoxia from respiratory arrest
#Metabolic Acidosis
#Recent ventilator dependent respiratory failure from mucous plugging-first 07/31/2024 through 08/08/2024 and then again 08/15/2024 extubated 08/17/2024
-Status PEA Arrest with ROSC on 08/21/24 and then intubated - this is patient's 3rd intubation this hospitalization
-Bicarb Drip
-Respiratory rate and tidal volume increased on ventilator
-3 pressors were added 08/21/24
-Sedation drips as per rotary adjuster
-EEG 08/22/2024 with generalized slowing and burst suppression-sign of significant anoxic event
-Per neurology, there is no possibility for a meaningful recovery as patient will never eat, speak, or get out of bed
#Shock possibly septic - possible aspiration - developing on 08/21/24
#MSSA in Sputum Culture
#Streptococcus salivarius bacteremia via BCx from 07/31/2024
#New splenic infarct
#Septic Shock
#Acute Renal Failure
#Hyperkalemia
#Lactic Acidosis
#Metabolic acidosis with increased anion gap due to severe CHRISS
#Non-Ischemic Myocardial Injury
- Per ID recommendations, now watch off antibiotics
- CRRT on hold for now, please see nephrology note
- Continue Zosyn
#Acute rectal bleeding in the setting of colorectal carcinoma/heparin infusion - now resolved
#Known history of colorectal Adenocarcinoma with possible lung mets
#Metastatic colorectal cancer with suspected lung metastasis (diagnosed via colonoscopy on 06/22/2024 with partially obstructing tumor seen in the rectum 4
cm from the anal verge, invasive low-grade colorectal adenocarcinoma)
#PET avid 2.2 cm right upper lobe nodule originally planned for robotic bronchoscopy on 08/03/2024 (will be deferred for now)
- s/p CTA without active bleeding source. No role for IR intervention. Source felt be related to known colon masses, although diverticular disease or AVMs possible.
- was previously Scheduled for lung biopsy as outpatient
- patient had not yet started chemotherapy
- GI following
- 1 unit of PRBC given on 08/19/24 given the drop in Hgb with associated tachycardia
#Persistent Atrial Fibrillation, with Rapid Ventricular Response
#Hypotension
-Outpatient, patient was on Toprol-XL 200 mg p.o. twice daily at one point.
-Off anticoagulation with active bleed episode; family aware of stroke risk
-Continue metoprolol tartrate with hold parameters
-Status post Amiodarone
-Patient may need Midodrine
-Not felt to be present OAC candidate due to being high risk for recurrent GI bleeding due to rectal masses per GI.
-Cardiology follow-up after discharge for possible Watchman Device placement
-DuoNebs previously stopped due to tachycardia. Xopenex as needed previously started for secretion clearance.
#Acute HFpEF Exacerbation
#Toxic Metabolic Encephalopathy
-critical illness, recent sedation
-monitor mentation -- now more alert
-CTH negative 08/08
-s/p VSE 08/13; now on dysphagia diet. ongoing speech evals.
#Transaminitis secondary to hypoxic liver
#Dysphagia
-Continue speech therapy evaluations
#Constipation
- bowel regimen prn
#Essential Hypertension
- hold TURN DOWN WORKER Olmesartan-HCTZ
#Hyperlipidemia
- hold rosuvastatin
#Acute Thrombocytopenia
- HIT panel negative
Monitor
#Sacral/buttocks DTI
- fecal management system placement attempted, unable to stay in per RN
- wound care service following; suspect stage III or stage IV pressure injury. Consider surgical evaluation if symptoms do not improve
ID is also following
#History of HAN on auto CPAP
-Nocturnal BiPAP encouraged
#History of psoriasis previously on Enbrel
#History of hepatitis A
#History of COVID-19 (03/2024)
#Restrictive lung disease (suspected based on spirometry from 05/15/2021, however patient was coughing during testing and post-bronchodilator FVC was WNL at 84% predicted)
DVT Prophylaxis: SCDs - not a candidate for pharmacological prophylaxis due to GI bleed
Diet: Previously, per speech, VSE completed on 08/20/24, patient did great, no aspiration; could advance diet to regular solids/thin liquids
Code Status: DNR (see rotary adjuster's note from 08/21/24 - Equine Science Instructor further discussed code status with patient's family and they agreed to have patient now be DNR)
Intubation and shock is a high risk encounter.
Anticipated Discharge: > 48 hours
Subjective/Interval History
-
Date of Service: August 23, 2024
Patient was seen and examined. He remained intubated.
Objective Data
-
Labs:
Laboratory Results
08/23/24 08/23/24
03:47 04:01
WBC 14.0 H
Hgb 8.6 L
Hct 25.9 L
Plt Count 102 L
HCO3 15.3 L*
Sodium 138
Potassium 4.7
Chloride 98
Carbon Dioxide 19 L
BUN 77 H
Creatinine 5.9 H*
Glucose 103 H
Calcium 6.4 L*
Vital Signs:
Vital Signs
Temp Pulse Resp BP Pulse Ox
99.5 F 70 26 123/45 100
08/23/24 08:00 08/23/24 07:45 08/23/24 07:45 08/23/24 07:45 08/23/24 08:00
I&O
08/22/24 08/23/24 08/24/24
06:59 06:59 06:59
Intake Total 3038.6 / 3218.6 4426.9 / 4603.3 402.8 / 402.8
Output Total 559 / 559 60 / 63 6 / 6
Balance 2479.6 / 2659.6 4366.9 / 4540.3 396.8 / 396.8
--- NOTE | 2024-08-23 09:01 | W.PN.ID1 ---
Date of Service
Date of Service: August 23, 2024
Today's Communication
- for transition to comfort care today, I am in agreement
- would stop antibiotics on transition
ID service will no longer actively follow this patient please recall for further questions
Assessment / Plan
Shock possibly septic - possible aspiration
Fevers
S aureus (MSSA) Pneumonia - resolved
Strep salivarius bacteremia x 2 sets drawn at the same time - most likely contaminant
CHRISS on HD
Class III Obesity
Colorectal Adenocarcinoma - not yet on treatment
Psoriatic Arthritis - currently off of Enbrel since ~05/03
- for transition to comfort care today, I am in agreement
- would stop antibiotics on transition
ID service will no longer actively follow this patient please recall for further questions
����������������������������������������������������������
Chief Complaint
-: Pneumonia and Other (shock)
Subjective / Review of Systems
ongoing, intermittent fevers via core route noted
remains on 3 pressors
overnight family expressed desire to transfer to comfort care today and last rites were administered
Vital Signs / Physical Exam
Vital Signs
Vital Signs
Temp Pulse Resp BP Pulse Ox
99.5 F 70 26 123/45 100
08/23/24 08:00 08/23/24 07:45 08/23/24 07:45 08/23/24 07:45 08/23/24 08:00
Physical Exam
Constitutional: Acutely Ill and Chronically Ill
Cardiovascular: Regular Rate
Pulmonary: Symmetric
Gastrointestinal: Non Distended
Skin: Dry; Negative Rash or Jaundice
Objective Data
Lab Data
Lab Results
08/23/24 04:01
08/23/24 04:01
PT 16.9 Sec (11.4-14.6) H 08/21/24 01:30
INR 1.34 08/21/24 01:30
APTT 38.5 Sec (23.4-35.0) H 08/21/24 01:30
Estimated Creat Clear 17 ml/min 08/23/24 04:01
Lactic Acid 8.9 mmol/L (0.7-2.0) H* 08/22/24 04:19
Total Bilirubin 3.0 mg/dl (0.2-1.3) H 08/22/24 04:19
AST 275 U/L (17-59) H 08/22/24 04:19
ALT 72 U/L (0-50) H 08/22/24 04:19
Alkaline Phosphatase 189 U/L (38-126) H 08/22/24 04:19
Most recent labs reviewed.
Micro Results:
08/22/24 04:27 Blood Culture - Preliminary
Blood/Venous No Growth in 24 hours- Final report to follow
08/22/24 04:19 Blood Culture - Preliminary
Blood/Venous No Growth in 24 hours- Final report to follow
08/22/24 04:31 Respiratory Culture - Pending
Sputum Gram Stain - Preliminary
08/22/24 10:11 Influenza Types A & B (KHANG) - Final
Nasal Swab Negative for Influenza A & B, NAAT
Negative results must be combined with clinical observations
and patient history.
Nucleic Acid Amplification test (NAAT)performed on the
Bread platform.
08/22/24 04:30 Urine Culture - Pending
Urine
08/15/24 04:30 Blood Culture - Final
Blood/Venous No Growth - Final Report
08/15/24 04:30 Blood Culture - Final
Blood/Venous No Growth - Final Report
08/17/24 10:00 Respiratory Culture - Final
Sputum Brianne albicans
Gram Stain - Final
08/16/24 11:25 Urine Culture - Final
Urine NO GROWTH
08/16/24 16:18 C. difficile GDH Antigen & Toxins - Final
Feces/Stool C. difficile antigen positive, toxin negative.
Clostridium difficile present, but toxin not detected.
Patient may be a carrier, colonized with nontoxinogenic
strain or the level of toxin in sample is below detection
limits. This information should be used in conjunction with
the patient's clinical history.
08/13/24 05:31 Salmonella/Shigella Culture - Final
Feces/Stool No Salmonella, Shigella, Aeromonas or Plesiomonas species
isolated.
Campylobacter Culture - Final
No Campylobacter species isolated.
Shiga Toxin Test - Final
No E. coli Shiga Toxin 1 or 2 detected.
Stool Leukocytes - Final
08/15/24 04:21 Influenza Types A & B (KHANG) - Final
Nasal Swab Negative for Influenza A & B, NAAT
Negative results must be combined with clinical observations
and patient history.
Nucleic Acid Amplification test (NAAT)performed on the
Bread platform.
08/13/24 05:31 C. difficile GDH Antigen & Toxins - Final
Feces/Stool C. difficile antigen positive, toxin negative.
Clostridium difficile present, but toxin not detected.
Patient may be a carrier, colonized with nontoxinogenic
strain or the level of toxin in sample is below detection
limits. This information should be used in conjunction with
the patient's clinical history.
- Final
Negative for Norovirus GI and GII.
08/07/24 11:39 Blood Culture - Final
Blood/Venous No Growth - Final Report
08/07/24 11:27 Blood Culture - Final
Blood/Venous No Growth - Final Report
08/07/24 10:52 Respiratory Culture - Final
Sputum NO GROWTH
Gram Stain - Final
08/03/24 03:28 Blood Culture - Final
Blood/Venous No Growth - Final Report
08/03/24 03:41 Blood Culture - Final
Blood/Venous No Growth - Final Report
08/01/24 18:19 Blood Culture - Final
Blood/Venous No Growth - Final Report
08/01/24 15:36 Blood Culture - Final
Blood/Venous No Growth - Final Report
07/31/24 12:18 Respiratory Culture - Final
Endotracheal S aureus-Methicillin Sensitive
Gram Stain - Final
07/31/24 07:54 Blood Culture - Final
Blood/Venous Streptococcus salivarius
Gram Stain - Final
07/31/24 07:54 Blood Culture - Final
Blood/Venous Streptococcus salivarius
Gram Stain - Final
07/31/24 11:49 Legionella Urinary Antigen - Final
Urine Negative for Legionella pneumophila Serogroup 1 antigen.
A negative result does not rule out the possiblity of
Legionella infection due to other serogroups or species of
Legionella. Clinical correlation is recommended.
Streptococcus pneumoniae Antigen (M - Final
Negative for Streptococcus pneumoniae antigen.
A negative result does not exclude infection with
Streptococcus pneumoniae. Clinical correlation is
recommended.
07/31/24 12:18 Nasal Screen MRSA (PCR) - Final
Nose MRSA not detected - performed by PCR methodology.
07/31/24 08:10 Influenza Types A & B (KHANG) - Final
Nasal Swab Negative for Influenza A & B, NAAT
Negative results must be combined with clinical observations
and patient history.
Nucleic Acid Amplification test (NAAT)performed on the
Bread platform.
08/04/24 CXR: Moderate pulmonary edema, without significant change.
--- NOTE | 2024-08-23 09:24 | W.PN.NEPH.PH ---
Today's Communication / Plan
-
awaiting on family decision
Maintain 3 pressor support to support MAP of 65 or greater
For aggressive support is to be pursued I would have to initiate CRRT
Assessment/Plan
-
64-year-old man with recently diagnosed colorectal cancer with possible lung metastasis and recent diagnosis of atrial fibrillation who presented with lightheadedness and dizziness after starting oral metoprolol as an outpatient and presented to
[place] emergency department. He presented in acute kidney injury admitted to the floors upgraded to the ICU for increased work of breathing ultimately intubated in the ICU with hyperkalemia.
Patient is critically ill on pressor support essentially anuric.
Positive blood cultures pending organism. Staph aureus sputum culture.
Renal consult for acute kidney injury and hyperkalemia
Impression.
Acute kidney injury and hyperkalemia secondary to septic shock.
Colorectal cancer newly diagnosed June 2024 with possible lung metastasis
Atrial fibrillation on oral anticoagulation
Bacteremia/sepsis
Plan.
Status post respiratory distress intubated on multiple pressors: Following cardiovascular arrest on 08/21/2024
Prolonged downtime with strong suspicion for anoxic injury
Neurological consult reviewed, family likely going to pursue comfort care given low likelihood of recovery
If there seems to be low likelihood of recovery per neuro evaluation the withdrawal of support will likely be initiated
We will hold off any dialysis modalities today
No acute HD requirement today based on electrolytes although weights continue to rise
Will reevaluate for CRRT modality later this afternoon if full support is to be pursued but this is unlikely
Patient with profound lactic acidosis likely contributing to hypotension
Place Alvarez catheter for critical I's and O's
Patient is critically ill on ventilator and on 3 pressor multiple pressor support
Discussed with ICU attending and nursing staff and
Patient remains critically ill on 3 pressor support and intubated with stable FiO2
31 minutes critical care time spent with patient
-
-
Date of Service: August 23, 2024
CC / HPI / ROS
-
Chief Complaint:
Septic shock
History of Present Illness:
tolerated HD now TTS but no HD since Tuesday
Reintubated 08/21/2024 following cardiovascular arrest with likely anoxic insult
Hemodynamically labile on 3 pressor support
Remains poorly responsive following cardiac arrest with minimal interaction
Review of Systems:.
Ventilator support with stable FiO2 of 40.
Poorly reactive and responsive
Alvarez with anuria
Labs
-
Labs:
WBC 14.0 10^3/uL (4.8-10.8) H 08/23/24 04:01
RBC 2.90 10^6/uL (4.70-6.10) L 08/23/24 04:01
Hgb 8.6 g/dL (13.0-18.0) L 08/23/24 04:01
Hct 25.9 % (39.0-52.0) L 08/23/24 04:01
Plt Count 102 10^3/uL (130-400) L 08/23/24 04:01
Sodium 138 mmol/L (135-145) 08/23/24 04:01
Potassium 4.7 mmol/L (3.5-5.1) 08/23/24 04:01
Chloride 98 mmol/L (98-107) 08/23/24 04:01
Carbon Dioxide 19 mmol/L (22-30) L 08/23/24 04:01
BUN 77 mg/dl (9-20) H 08/23/24 04:01
Creatinine 5.9 mg/dL (0.7-1.3) H* 08/23/24 04:01
eGFR 10.11 08/23/24 04:01
Glucose 103 mg/dl (70-99) H 08/23/24 04:01
Calcium 6.4 mg/dl (8.4-10.2) L* 08/23/24 04:01
Phosphorus 5.5 mg/dl (2.5-4.5) H 08/21/24 01:30
Dar-I-Wdqhecrbbdh Pept 2850 pg/ml 08/06/24 03:26
Albumin 2.6 g/dl (3.5-5.0) L 08/22/24 04:19
Physical Exam
-
Vital Signs:
Vital Signs
Temp Pulse Resp BP Pulse Ox
99.5 F 76 26 121/45 100
08/23/24 08:00 08/23/24 09:15 08/23/24 09:15 08/23/24 09:15 08/23/24 09:15
Cardiovascular:: Irregular rate and rhythm
Respiratory:: Bilateral: Coarse
Lung Excursion:: Normal
Abdomen:: Nontender and Soft
Extremity Edema:: +2: Bilateral:
Alvarez Catheter: Yes
Other Findings::
GEN: Intubated and obtunded
[2024-08-23] MEDS: PITRESSIN 100 IV (10:12)
--- NOTE | 2024-08-23 11:24 | W.PN.CARDCBS ---
Today's Communication / Plan
-
Currently in sinus rhythm after conversion from atrial fibrillation
Amiodarone currently held
Continue metoprolol tartrate with hold parameters
DNR with family leaning towards hospice/comfort care
Will sign off, recall if needed
Impression / Plan
-
Primary Mall Manager: Dr. Hiren Vicente
Impression:
Status post respiratory code with hypoxemia and severe pauses 08/21/2024
VDRF 08/21/2024
MSOF (resp failure, CHF, liver failure, renal failure)
Recent diagnosis paroxysmal atrial fibrillation with recurrent AFib with RVR
splenic infarct
GI bleeding
Hypotension previously requiring pressors, weaned off 08/19/2024
CHRISS (likely as a consequence of hypotension, possibly from septic shock versus cardiogenic shock or combination of both), now on HD
Acute hypoxic respiratory failure requiring intubation 07/31/24, weaned from vent then re-intubated 08/15/2024, extubated 08/17/2024
Liver failure (likely as a consequence of hypotension, possibly from septic shock versus cardiogenic shock or combination of both)
Fever
Sepsis, s aureus PNA, possible S aureus bacteremia
Acute diastolic CHF
Colorectal cancer, suspected metastatic, diagnosed 06/22/2024, not yet started on therapy
Pulmonary nodule with concern for metastasis, scheduled for lung biopsy 08/03
Hypertension
Hyperlipidemia
Obstructive sleep apnea
Obesity
Edema
ECHO 07/31/24: Normal LV function. LVEF is 55-60%. No wall motion abnormality. Top normal right ventricular size with normal RV function. Mild AI and mild TR. Estimated pulmonary artery pressure of 38 mmHg
Plan:
Status post PEA code 08/21/2024. Remains intubated and unresponsive
Continue hemodynamic support with pressors
Ongoing GOC discussions- Neurological consult reviewed, profound anoxic injury with no possibility for meaningful recovery. His family leaning towards comfort care given low likelihood of recovery
A-fib with conversion to SR/SB
Amio gtt stopped
Monitor tele
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 He had bloody BM on IV heparin earlier in hospital stay. not felt to be present OAC candidate due to being high risk for recurrent GI bleeding due to rectal masses per GI. He is [id number] score of
1 (hypertension).
Discussed with at bedside and nursing
Will sign off, recall if needed
HPI:
64-year-old man with recently diagnosed colorectal cancer with possible lung metastasis and recent diagnosis of atrial fibrillation who presented with lightheadedness and dizziness after starting oral metoprolol as an outpatient and presented to
[place] emergency department for further management. After being found to have CHRISS and anemia he was admitted for further management. Unfortunately developed increased work of breathing this morning, became tachycardic and was found to be
febrile. Did not clinically improve with BiPAP and he was subsequently intubated and transferred to the medical ICU for further management. Currently being treated with broad-spectrum antibiotics and requiring pressor support.
Seen in the outpatient cardiology office 07/26/24 and was in AF with a rapid ventricular rate of 130 bpm. At that visit he had yet to initiate Toprol-XL which was ordered by his primary care physician. At that office visit he agreed to initiate
Toprol-XL 25 mg daily for rate control with plan to defer recommendations regarding rhythm control until he was adequately anticoagulated (atrial fibrillation of unknown duration) and to allow for intermittent interruption of anticoagulation for
planned upcoming procedures regarding his recently diagnosed colorectal cancer with likely pulmonary metastases (bronchoscopy, port placement, colorectal surgery). Eliquis 5 mg twice daily was also initiated on 07/26/24..
Cardiology is consulted for possible heart failure as a cause of his respiratory decompensation. proBNP was mildly elevated (3210), it is possible there is some component of heart failure with preserved ejection fraction.
On presentation to the emergency department 07/30/24, he was in atrial fibrillation with reasonably controlled ventricular rate of 105 bpm. EKG of July 31, 2024 finds sinus rhythm at 77 bpm.
Progress Note - Mall Manager
Subjective
Date of Service: August 23, 2024
Seen and examined. Chart/telemetry reviewed. Discussed plan with nephrology, manager animal and family.
Objective
Labs:
08/23/24 04:01
08/23/24 04:01
Labs
Hgb 8.6 g/dL (13.0-18.0) L 08/23/24 04:01
Hct 25.9 % (39.0-52.0) L 08/23/24 04:01
Plt Count 102 10^3/uL (130-400) L 08/23/24 04:01
PT 16.9 Sec (11.4-14.6) H 08/21/24 01:30
INR 1.34 08/21/24 01:30
APTT 38.5 Sec (23.4-35.0) H 08/21/24 01:30
Sodium 138 mmol/L (135-145) 08/23/24 04:01
Potassium 4.7 mmol/L (3.5-5.1) 08/23/24 04:01
BUN 77 mg/dl (9-20) H 08/23/24 04:01
Creatinine 5.9 mg/dL (0.7-1.3) H* 08/23/24 04:01
Glucose 103 mg/dl (70-99) H 08/23/24 04:01
Troponins
08/21/24
01:30
Troponin I 0.285 H*
Vital Signs and I&O:
Vital Signs
Temp Pulse Resp BP Pulse Ox
99.5 F 78 26 123/45 100
08/23/24 08:00 08/23/24 11:00 08/23/24 11:00 08/23/24 11:00 08/23/24 11:00
Vital Signs
Temp Pulse Resp BP Pulse Ox
99.5 F 78 26 123/45 100
08/23/24 08:00 08/23/24 11:00 08/23/24 11:00 08/23/24 11:00 08/23/24 11:00
Intake & Output
08/21/24 08/22/24 08/23/24 08/24/24
06:59 06:59 06:59 06:59
Intake Total 480 / 480 3038.6 / 3218.6 4426.9 / 4603.3 926.0 / 926.0
Output Total 700 / 700 559 / 559 60 / 63
Balance -220 / -220 2479.6 / 2659.6 4366.9 / 4540.3 915.0 / 915.0
Physical Exam
Physical Exam
Gen:intubated. Anasarca
HEENT: mmm
CV: Regular. Positive S1-S2. Distant heart sounds. No murmur
Lungs: Mechanically ventilated; clear to auscultation
Abd: Soft, nontender. Positive bowel sound
Ext: +2 bilateral edema
Neuro: No purposeful movements
[2024-08-23] MEDS: SODIUM BICARBONATE 1150 MEQ IV (11:33)
[2024-08-23 11:44] LABS: Glucose - Point of Care 99 mg/dl (70-99)
--- NOTE | 2024-08-23 12:24 | PTCARENOTE ---
No changes in assessment. Weaning pressors as tolerated. Awaiting family decision.
[2024-08-23] MEDS: SUBLIMAZE 100 IV (13:26)
--- NOTE | 2024-08-23 14:08 | PTCARENOTE ---
Patient's family requesting to withdrawal care at 1500. Student Activities Director notified.
--- NOTE | 2024-08-23 14:08 | W.PN.UPDATE ---
Update Note
Progress Note Update
Reevaluated the patient
Comfortable-still on 3 pressors
Reviewed with and another daughter-family is in complete agreement to withdraw around 3 PM-process discussed at length and we will respect their wishes
Critical care nursing and respiratory therapy notified
Comfort a priority
Pastoral care has been provided
[2024-08-23] MEDS: SUBLIMAZE 50 MCG IV (14:53)
[2024-08-23] MEDS: ATIVAN 2 MG IV ×2 (14:58→16:27)
[2024-08-23] MEDS: NSS (PRESERVATIVE FREE) 0.5 ML IV (14:59)
[2024-08-23] MEDS: XOPENEX 1.25 MG INHALANT SOLUTION INH (15:01)
--- NOTE | 2024-08-23 15:20 | CM ---
Chart reviewed; CM will monitor patient and support if needed
[2024-08-23] MEDS: SUBLIMAZE 100 MCG IV ×3 (16:18→17:02)
[2024-08-23] MEDS: ROBINUL 0.2 MG IV (16:28)
--- NOTE | 2024-08-23 16:30 | PTCARENOTE ---
Patient's family ready to transition to comfort care. Propofol and pressors discontinued. Terminal extubation completed by RT. Fentanyl drip continued for end of life. Fentanyl bolus and Ativan administered for end of life pain. Robinul administered
for secretions. Emotional support provided to family.
[2024-08-23] MEDS: ZOSYN IV (16:31)
--- NOTE | 2024-08-23 16:31 | RESPNOTE ---
Patient status changed to Comfort care, and palliatively extubated the patient to comfort measures as per the physician order.
--- NOTE | 2024-08-23 18:30 | PTCARENOTE ---
Patient asystole on monitor. LOOM STOP CHECKER at bedside to call time of . Family at bedside. Emotional support provided.
--- NOTE | 2024-08-23 20:19 | W.PN.DEATH ---
Pronouncement of
-
Called to see patient to pronounce.
No spontaneous heart tones or respirations noted.
Patient not responsive to verbal stimuli.
Patient is pronounced .
Time of : 18:23
Date of : 08/23/24
Cause of : Multiple system Failure due septic shock
Family Notified: Yes
--- NOTE | 2024-08-23 20:20 | PTCARENOTE ---
Post mortem care provided and DARRYL called at 2015
== END 2024-08-23 18:23 | disposition expired | DRG 870 ==
LOC: ICU 20:26
PROVIDERS: Emergency Medicine; Hospitalist; Internal Medicine; Internal Medicine Cardiovascular Disease; Internal Medicine Critical Care Medicine; Nurse Practitioner Family; Nurse Practitioner Primary Care; Physician Assistant Medical; Radiology Diagnostic Radiology; Radiology Vascular & Interventional Radiology; Specialist; Student in an Organized Health Care Education/Training Program; ADMITTING PHYSICIAN Internal Medicine; ATTENDING PHYSICIAN Hospitalist; CONSULT PHYSICIAN Internal Medicine Cardiovascular Disease; CONSULT PHYSICIAN Internal Medicine Critical Care Medicine; CONSULT PHYSICIAN Psychiatry & Neurology Clinical Neurophysiology; CONSULT PHYSICIAN Student in an Organized Health Care Education/Training Program; CONSULT PHYSICIAN Surgery; EMERGENCY PHYSICIAN Emergency Medicine; FAMILY PHYSICIAN Internal Medicine; OTHER PHYSICIAN Internal Medicine Critical Care Medicine; OTHER PHYSICIAN Internal Medicine Nephrology
PROC: 5A1955Z Respiratory Ventilation, Greater than 96 Consecutive Hours (ICD-10-PCS; 2024-07-31)
PROC: 0BH17EZ Insertion of Endotracheal Airway into Trachea, Via Natural or Artificial Opening (ICD-10-PCS; 2024-07-31)
PROC: 02HV33Z Insertion of Infusion Device into Superior Vena Cava, Percutaneous Approach (ICD-10-PCS; 2024-07-31)
PROC: 0D9670Z Drainage of Stomach with Drainage Device, Via Natural or Artificial Opening (ICD-10-PCS; 2024-07-31)
PROC: 05HM33Z Insertion of Infusion Device into Right Internal Jugular Vein, Percutaneous Approach (ICD-10-PCS; 2024-08-01)
PROC: 5A1D90Z Performance of Urinary Filtration, Continuous, Greater than 18 hours Per Day (ICD-10-PCS; 2024-08-01)
PROC: 5A09357 Assistance with Respiratory Ventilation, Less than 24 Consecutive Hours, Continuous Positive Airway Pressure (ICD-10-PCS; 2024-08-08)
PROC: 0BP1XDZ Removal of Intraluminal Device from Trachea, External Approach (ICD-10-PCS; 2024-08-08)
PROC: 0DH67UZ Insertion of Feeding Device into Stomach, Via Natural or Artificial Opening (ICD-10-PCS; 2024-08-09)
PROC: 5A1D70Z Performance of Urinary Filtration, Intermittent, Less than 6 Hours Per Day (ICD-10-PCS; 2024-08-09)
PROC: 0JH63XZ Insertion of Tunneled Vascular Access Device into Chest Subcutaneous Tissue and Fascia, Percutaneous Approach (ICD-10-PCS; 2024-08-09)
PROC: 05PYX3Z Removal of Infusion Device from Upper Vein, External Approach (ICD-10-PCS; 2024-08-09)
PROC: B5181ZA Fluoroscopy of Superior Vena Cava using Low Osmolar Contrast, Guidance (ICD-10-PCS; 2024-08-09)
PROC: 30243N1 Transfusion of Nonautologous Red Blood Cells into Central Vein, Percutaneous Approach (ICD-10-PCS; 2024-08-19)
PROC: 5A12012 Performance of Cardiac Output, Single, Manual (ICD-10-PCS; 2024-08-21)
DX: A40.8 Other streptococcal sepsis (principal); L89.153 Pressure ulcer of sacral region, stage 3; I50.33 Acute on chronic diastolic (congestive) heart failure; J96.01 Acute respiratory failure with hypoxia; R65.21 Severe sepsis with septic shock; K72.00 Acute and subacute hepatic failure without coma; J15.211 Pneumonia due to Methicillin susceptible Staphylococcus aureus; G92.8 Other toxic encephalopathy; G93.6 Cerebral edema; C19 Malignant neoplasm of rectosigmoid junction; I48.19 Other persistent atrial fibrillation; Z51.5 Encounter for palliative care; N17.9 Acute kidney failure, unspecified; Z68.41 Body mass index [BMI] 40.0-44.9, adult; E87.4 Mixed disorder of acid-base balance; Z99.11 Dependence on respirator [ventilator] status; I5A Non-ischemic myocardial injury (non-traumatic); C78.01 Secondary malignant neoplasm of right lung; K92.2 Gastrointestinal hemorrhage, unspecified; D68.32 Hemorrhagic disorder due to extrinsic circulating anticoagulants; T82.524A Displacement of infusion catheter, initial encounter; J98.11 Atelectasis; G93.1 Anoxic brain damage, not elsewhere classified; D64.9 Anemia, unspecified; I11.0 Hypertensive heart disease with heart failure; J98.4 Other disorders of lung; E66.01 Morbid (severe) obesity due to excess calories; K64.4 Residual hemorrhoidal skin tags; R57.0 Cardiogenic shock; R05.3 Chronic cough; G47.33 Obstructive sleep apnea (adult) (pediatric); E66.813 Obesity, class 3; L40.50 Arthropathic psoriasis, unspecified; K80.20 Calculus of gallbladder without cholecystitis without obstruction; E78.00 Pure hypercholesterolemia, unspecified; R68.0 Hypothermia, not associated with low environmental temperature; K59.00 Constipation, unspecified; D73.5 Infarction of spleen; D69.6 Thrombocytopenia, unspecified; Y84.8 Other medical procedures as the cause of abnormal reaction of the patient, or of later complication, without mention of misadventure at the time of the procedure; Y92.239 Unspecified place in hospital as the place of occurrence of the external cause; R13.10 Dysphagia, unspecified; Z66 Do not resuscitate; I46.9 Cardiac arrest, cause unspecified; T17.990A Other foreign object in respiratory tract, part unspecified in causing asphyxiation, initial encounter; E87.5 Hyperkalemia; Z79.01 Long term (current) use of anticoagulants; Z92.21 Personal history of antineoplastic chemotherapy; Z92.3 Personal history of irradiation; Z11.52 Encounter for screening for COVID-19; Z86.16 Personal history of COVID-19; Z86.19 Personal history of other infectious and parasitic diseases; Z82.49 Family history of ischemic heart disease and other diseases of the circulatory system; Z83.3 Family history of diabetes mellitus; Z86.0101 Personal history of adenomatous and serrated colon polyps
CPT/HCPCS: 93308; 36556; 36558; 36584; 36600; 70450; 71045; 74018; 74174; 74230; 76700; 76937; 77001; 80048; 80053; 80202; 81003; 81015; 82140; 82247; 82248; 82330; 82533; 82607; 82728; 82746; 82805; 82962; 83540; 83550; 83605; 83735; 83880; 84075; 84100; 84132; 84145; 84302; 84450; 84460; 84478; 84484; 85014; 85018; 85025; 85027; 85384; 85610; 85730; 86022; 86704; 86706; 86803; 86850; 86900; 86901; 86920; 87040; 87045; 87046; 87070; 87077; 87086; 87147; 87186; 87205; 87324; 87340; 87427; 87449; 87502; 87641; 87798; 87811; 87899; 89055; 92526; 92610; 92611; 93005; 93306; 93321; 93325; 93970; 94002; 94003; 94640; 94660; 95816; 96360; 97163; 97167; 97530; 99152; 99153; 99285; C1750; C1752; G0257; P9016; P9047; Q5106; Q9967